=== PATIENT | female | born 1960 | race African-American/Black ===

== ENCOUNTER 2021-06-28 10:30 | Outpatient (CLI) | payer SELFPAY ==
--- NOTE | ~2021-06-28 | MM_ITS ---
EXAMINATION: MM screening [facility] BI w ade HISTORY: Screening TECHNIQUE: Craniocaudal and mediolateral oblique 3-D tomosynthesis images were obtained and synthetic 2-D images were generated. CAD analysis was submitted and interpreted. COMPARISON: Comparison to multiple prior studies sequentially, with oldest reviewed study dated 08/30 BREAST PARENCHYMAL COMPOSITION: Breast composed of scattered areas of fibroglandular density FINDINGS: There are developing bilateral breast masses involving the lower inner quadrant of the righ t breast and periareolar location of the left breast. IMPRESSION: 1. Developing bilateral breast masses. 2. Additional mammographic views and possible breast ultrasound are recommended. BI-RADS Category 0: Incomplete: Needs additional imaging evaluation. Reviewed, dictated and finalized at location A. PIT WORKER IMPRESSION: 1. Developing bilateral breast masses. 2. Additional mammographic views and possible breast ultrasound are recommended . BI-RADS Category 0: Incomplete: Needs additional imaging evaluation.
== END 2021-06-28 10:31 ==
PROVIDERS: Visit Provider Family Medicine Adolescent Medicine
DX: Z12.31 Encounter for screening mammogram for malignant neoplasm of breast (principal); R92.8 Other abnormal and inconclusive findings on diagnostic imaging of breast
CPT/HCPCS: 77063; 77067

== ENCOUNTER 2021-09-06 13:45 | Outpatient (CLI) | payer SELFPAY ==
--- NOTE | ~2021-09-06 | MMUS_ITS ---
EXAMINATION: MM diagnostic [facility] BI w ade, US breast BI limited HISTORY: Follow-up bilateral breast masses TECHNIQUE: Additional 3-D tomosynthesis images of the breasts were performed and synthetic 2-D images were generated. CAD analysis was submitted and interpreted. High resolution limited bilateral breast ultrasound was performed. COMPARISON: Comparison to multiple prior studies sequentially, with oldest reviewed study dated 02/13. BREAST PARENCHYMAL COMPOSITION: Breast composed of scattered areas of fibroglandular density FINDINGS: MAMMOGRAPHIC FINDINGS: There is a persistent radiolucent mass in the central aspect of the right breast posterior to the nip ple. There is a small mass in the upper outer quadrant of the left breast, anterior depth. ULTRASOUND: Limited right breast ultrasound: At 1:00, 5 cm from the nipple, there is a slightly irregular shaped 7 mm cyst corresponding to the mammographic finding. No suspicious masses in the right breast to sugg est malignancy. Limited left breast ultrasound: At 9:00 near the [place] there is a 4 mm cyst corresponding to the [facility] mographic finding. No suspicious masses to suggest malignancy. IMPRESSION: 1. No evidence for malignancy in either breast. Benign findings. 2. Routine yearly screening mammogram and regular clinical breast examination are recommended. BI-RADS Category 2: Benign finding(s). Reviewed, dictated and finalized at location A. IMPRESSION: 1. No evidence for malignancy in either breast. Benign findings. 2. Routine yearly screening mammogram and regular clinical breast examination a re recommended. BI-RADS Category 2: Benign finding(s).
== END 2021-09-06 13:46 ==
PROVIDERS: PCP Family Medicine Adolescent Medicine; Visit Provider Family Medicine Adolescent Medicine
DX: N63.10 Unspecified lump in the right breast, unspecified quadrant (principal); N63.20 Unspecified lump in the left breast, unspecified quadrant
CPT/HCPCS: 76642; 77062; 77066; G0279

== ENCOUNTER 2022-07-30 17:33 | Emergency (ER) | payer MEDICAID, SELFPAY ==
[2022-07-30 17:36] VITALS: BP 147/98; PULSE 100; RESP 18; TEMP 36.6; O2SAT 100
[2022-07-30 19:10] LABS: Basophils Absolute Auto 0.1 K/mm3 (0.0-0.1); Basophils Percent Auto 1.9 % (0.2-1.2); Eosinophils Absolute Auto 0.4 K/mm3 (0-0.3); Eosinophils Percent Auto 5.8 % (0-4.4); Hematocrit 32.9 % (37.0-47.0); Hemoglobin 11.4 g/dL (12.0-15.0); Immature Granulocyte Absolute 0.03 K/mm3 (0.00-0.031); Immature Granulocyte Percent A 0.4 % (0-0.5); Lymphocytes Absolute Auto 0.83 K/mm3 (0.9-3.2); Lymphocytes Percent Auto 12.1 % (18.3-44.2); Mean Corpuscular HGB Conc 34.7 g/dl (32-36); Mean Corpuscular Hemoglobin 27.1 pg (26-34); Mean Corpuscular Volume 78.1 fl (80-100); Mean Platelet Volume 9.7 fl (7.4-10.4); Monocytes Absolute Auto 0.5 K/mm3 (0.1-0.6); Monocytes Percent Auto 7.9 % (2.6-8.5); Neutrophils Absolute Auto 4.9 K/mm3 (1.3-6.7); Neutrophils Percent Auto 71.9 % (45.5-73.1); Platelet Count Result 313 k/mm3 (150-375); Red Blood Count 4.21 M/mm3 (4.2-5.4); Red Cell Distribution Width 16.4 % (11.5-14.5); White Blood Count 6.8 K/mm3 (4.5-10.0)
--- NOTE | 2022-07-30 19:15 | ED.EXTPRO ---
HPI - Extremity Problem General Chief complaint: Extremity Problem,Nontraumatic <Rey Hughes PA-C - Last Filed: 07/31/22 05:14> Stated complaint: wound <Rey Hughes PA-C - Last Filed: 07/31/22 05:14> Time Seen by Provider: 07/30/22 18:30 <Rey Hughes PA-C - Last Filed: 07/31/22 05:14> History of Present Illness HPI Narrative: This is a 61-year-old female with PMH of hypertension and MS who presents to the ED with chief complaint of left lower leg redness and swelling x2 days. She states that a blister formed yesterday and it just popped prior to arrival in the ED today. She reports minimal pain at this point. States she has been able to ambulate. She states she had what she thought was a pimple in the leg that she popped a couple days ago. Denies fevers, chills, nausea, vomiting, headache, LOC. <Rey Hughes PA-C - Last Filed: 07/31/22 05:14> Related Data Allergies/Adverse reactions: Allergies Allergy/AdvReac Type Severity Reaction Status Date / Time No Known Allergies Allergy Verified 07/30/22 19:03 <Rey Hughes PA-C - Last Filed: 07/31/22 05:14> Review of Systems Review of Systems: CONSTITUTIONAL: Denies fever, chills, or sweats. EYES: Denies visual changes, redness, or discharge. ENT: Denies rhinorrhea, congestion, sore throat, or otalgia. CARDIOVASCULAR: Denies chest pain, palpitations, or edema. RESPIRATORY: Denies cough or dyspnea. GASTROINTESTINAL: Denies abdominal pain, nausea, vomiting, or diarrhea. GENITOURINARY: Denies dysuria or hematuria. SKIN: Endorses redness. Endorses swelling. Denies rash or itching. MUSCULOSKELETAL: Denies back pain, joint pain, or myalgia. NEUROLOGIC: Denies headache, numbness, dizziness, or weakness. PSYCHIATRIC: Denies anxiety or depression. <BLUE Alvarado Last Filed: 07/31/22 05:14> [facility] Family History Family History: Family History (Updated 08/02/22 @ 16:04 by Jayson Renee [facility]) Father Cerebrovascular accident Hypertension CAD (coronary artery disease) <Rey Hughes PA-C - Last Filed: 07/31/22 05:14> Exam Narrative: GENERAL: Well-appearing, well-nourished, and in no acute distress. HEAD: Normocephalic, atraumatic. EYES: PERRLA and EOMI. ENT: Nares clear, no rhinorrhea or epistaxis. Mucous membranes moist. Oropharynx without tonsillar hypertrophy exudate or other lesions. NECK: Supple. No adenopathy or masses. CHEST: No respiratory distress. Clear to auscultation. No wheezes rales or rhonchi HEART: Regular rate and rhythm. No murmur heard. Normal peripheral pulses. ABDOMEN: Soft, nontender, nondistended, normal active bowel sounds. EXTREMITIES: There is a 9 x 9cm area of erythema to the left lower extremity. Moderate swelling. No streaking. Minimal tenderness to the left leg. Normal range of motion. Right lower extremity benign. SKIN: Warm, dry, no rash. NEURO: Alert and oriented x3. No focal deficits. PSYCH: Normal mood and affect. <Rey Hughes PA-C - Last Filed: 07/31/22 05:14> Course YARN TESTER/PA Physician Supervision This is a was performed by both a physician and an APC. I performed all aspects of the MDM as documented w/ the following additions: A 61-year-old female presenting with cellulitis of her lower extremity. Patient will be treated with antibiotics and discharged. Given return precautions.All questions answered. Patient in agreement w/ disposition. <Keyon Barron MD - Last Filed: 08/02/22 20:34> Vital Signs Vital signs: Vital Signs Temperature 97.9 F 07/30/22 17:36 Pulse Rate 100 07/30/22 17:36 Respiratory Rate 18 07/30/22 17:36 Blood Pressure 147/98 H 07/30/22 17:36 Pulse Oximetry 100 07/30/22 17:36 Oxygen Delivery Room Air 07/30/22 17:36 Temperature 97.9 F 07/30/22 17:36 Pulse Rate 75 07/30/22 21:08 Respiratory Rate 18 07/30/22 21:08 Blood Pressure 154/104 H 07/30/22 21:08 Pulse Oximetry 99 07/30/22 21:08 Oxygen Deliver
--- NOTE | 2022-07-30 19:34 | PC.NURSE ---
area of concern to left lower leg mrked with skin marker at this time. Dr. Barron and MALINDA Hughes at bedside at this time.
[2022-07-30 19:52] LABS: Alanine Aminotransferase 13 U/L (6-35); Albumin Level 4.2 g/dL (3.5-5.1); Alkaline Phosphatase 78 U/L (38-126); Anion Gap 6 mmol/L (8-16); Aspartate Amino Transferase 22 U/L (14-36); Bilirubin,Total 0.4 mg/dL (0.2-1.3); Blood Urea Nitrogen 17 mg/dL (7-17); CRP 0.6 mg/dL (<1.0); Calcium 9.3 mg/dL (8.4-10.2); Carbon Dioxide 27 mmol/L (22-30); Chloride 108 mmol/L (98-107); Estimated CRCL calculation 51 ml/min; Estimated Glomerular Filt Rate > 60; Glucose 88 mg/dL (65-110); Potassium 3.6 mmol/L (3.4-5.0); Sodium 141 mmol/L (137-145)
[2022-07-30] MEDS: ceFAZolin 1 GM/NS 50 ML 1 GM/50 ML BAG IVPB (19:54)
[2022-07-30 21:08] VITALS: BP 154/104; PULSE 75; RESP 18; O2SAT 99
== END 2022-07-30 21:09 | disposition home or self-care (01) ==
PROVIDERS: Emergency Provider Physician Assistant; PCP Family Medicine Adolescent Medicine
DX: L03.116 Cellulitis of left lower limb (principal); I10 Essential (primary) hypertension; G35 Multiple sclerosis
CPT/HCPCS: 36415; 80053; 85025; 86140; 96365; 99284; J0690

== ENCOUNTER 2024-03-04 12:35 | Emergency (ER) | payer SELFPAY ==
[2024-03-04 12:42] VITALS: BP 147/86; PULSE 76; RESP 18; TEMP 36.6; O2SAT 100
--- NOTE | 2024-03-04 13:37 | ED.WOUNDLAC ---
HPI - Wound/Laceration General Chief Complaint: Wound/Laceration Stated Complaint: laceration Time Seen by Provider: 03/04/24 13:25 Focused HPI: Patient is a 63-year-old female presents to the ER with a one inch laceration on the bottom of her chin. She reports she was sitting in a chair when she fell forward and hit her chin on a hardwood floor. Patient reports she is not on any blood thinners. She denies pain at this time. Patient endorses history of high blood pressure, cellulitis and multiple sclerosis. GENERAL: Well-appearing, well-nourished, and in no acute distress. HEAD: Normocephalic, atraumatic. CHEST: Clear to auscultation. ?No respiratory distress. HEART: Regular rate and rhythm.? NEURO: ?Alert and oriented x3. SKIN: 1 open linear laceration on pt's chin, clean borders Patient screened in triage and initial orders placed.? ?Additional care and disposition to be based upon?diagnostic testing and treatment. History of Present Illness HPI narrative: See MSE note above Related Data Allergies Allergy/AdvReac Type Severity Reaction Status Date / Time Seasonal Allergies Allergy Mild itchiness Uncoded 09/26/23 13:14 Review of Systems Review of Systems: All systems reviewed & are unremarkable except as noted in HPI and below PMFSH Past Medical History Medical History Cellulitis History of ectopic Hypertension Multiple sclerosis (1997) Paroxysmal atrial fibrillation Family History Family History Father Cerebrovascular accident Hypertension CAD (coronary artery disease) Social History Social History Smoking status: Never smoker Alcohol intake: never Substance use: never Lack of Transportation: No Lack of Food: Never True Current Housing: I Have Housing Concerned About Future Housing: No Difficulty Paying Gas/Electric Bills: No Difficulty Paying for Meds: YES Currently Unemployed: Decline to Answer Education: Bachelor's Degree Difficulty w/ Childcare or Family Care: No Exam Narrative: GENERAL: Well appearing, well-nourished, non-toxic, in no acute distress. HEAD: Normocephalic, atraumatic. NECK: Supple. No adenopathy, no masses. RESPIRATORY: Airway patent, respirations nonlabored. Clear to auscultation bilaterally, no rales, rhonchi, wheezing. CARDIOVASCULAR: Regular rate and rhythm without murmurs, rubs, or gallops. Peripheral pulses 2+ and equal bilaterally. ABDOMINAL: Soft, nontender, nondistended, no hepatosplenomegaly. Normoactive BS. MUSCULOSKELETAL: Moves all extremities. Strength/ROM intact without gross deformities. SKIN: Warm, dry, normal color. No rashes. 1 linear open wound on chin NEURO: A&O X3. Speech clear. PSYCHIATRIC: Appropriate mood and affect. Normal interaction. Course Vital Signs Vital signs: Vital Signs Temperature 36.6 C 03/04/24 12:42 Pulse Rate 76 03/04/24 12:42 Respiratory Rate 18 03/04/24 12:42 Blood Pressure 147/86 H 03/04/24 12:42 Pulse Oximetry 100 03/04/24 12:42 Oxygen Delivery Room Air 03/04/24 12:42 Temperature 36.6 C 03/04/24 12:42 Pulse Rate 76 03/04/24 12:42 Respiratory Rate 18 03/04/24 12:42 Blood Pressure 147/86 H 03/04/24 12:42 Pulse Oximetry 100 03/04/24 12:42 Oxygen Delivery Room Air 03/04/24 12:42 MDM - Wound/Laceration MDM Narrative Medical decision making narrative: Patient was given 1 tablet [place] prior to the procedure. Wound was irrigated excessively. 1% lidocaine with epinephrine was injected to the wound site. Five Ethilon 4.0 stitches were placed to close her wound. Wound will be covered by dressing. Care for wound instructions were given to pt and her sons. They verbalized understanding and were in agreement with plan. Differential Diagnosis Differential diagnosis:
[2024-03-04] MEDS: HYDROcodone/acetaminophen (*CRX) 5-325 MG TABLET 1 TAB PO (17:11)
[2024-03-04 18:09] VITALS: BP 137/82; PULSE 72; RESP 19; TEMP 36.9; O2SAT 99
== END 2024-03-04 18:11 | disposition home or self-care (01) ==
PROVIDERS: Emergency Provider Registered Nurse; PCP Family Medicine Adolescent Medicine
DX: S01.81XA Laceration without foreign body of other part of head, initial encounter (principal); I10 Essential (primary) hypertension; I48.91 Unspecified atrial fibrillation; W07.XXXA Fall from chair, initial encounter
CPT/HCPCS: 12011; 99283; A9270

== ENCOUNTER 2024-06-09 16:03 | Inpatient (IN) | payer MEDICARE, OTHER, SELFPAY ==
[2024-06-09] VITALS (27 sets, daily range): BP systolic 77–106; BP diastolic 50–82; PULSE 85–99; RESP 8–34; TEMP 36.4–37.2; O2SAT 89–100; BMI 21.9; BMI 21.2
--- NOTE | ~2024-06-09 | CT_ITS ---
EXAMINATION: CT brain wo con DATE: 06/10/2024 13:47 INDICATION: Confusion post fall TECHNIQUE: Computed tomography (CT) of the head was performed without intravenous contrast. Sagittal and coronal reconstructions were performed. The mA was adjusted according to patient size. Iterative reconstruction technique was employed. The dose-length product was 605.33 mGy-cm. COMPARISON: Brain MR dated 01/17/2012 FINDINGS: No fracture. No acute intracranial hemorrhage, acute infarction or abnormal extra axial fluid collect ion. There is extensive scattered white matter hypoattenuation consistent with chronic small vessel i schemic disease. Symmetric prominence of the sulci and ventricles consistent with mild to moderate ag e-appropriate diffuse cerebral volume loss. No mass/mass effect. The orbits, paranasal sinuses and ma stoid air cells are normal. IMPRESSION: 1. No fracture or acute intracranial process. 2. Age-related changes including mild to moderate diffuse on loss and extensive white matter hypoatte nuation consistent with chronic small vessel ischemic disease. Reviewed, dictated and finalized at location B. CATED OWNER OPERATOR IMPRESSION: 1. No fracture or acute intracranial process. 2. Age-related changes including mild to moderate diffuse on loss and extensive white matter hypoattenuation consistent with chronic small vessel ischemic dis ease.
--- NOTE | ~2024-06-09 | XR_ITS ---
MODIFIED ESOPHAGRAM HISTORY: Dysphagia. TECHNIQUE: Modified barium esophagram was performed by speech pathologist under radiologist fluorosco pic guidance. This was recorded on tape. The exam was reviewed on 06/13/2024 11:43 ASSET ACCOUNTANT. The DAP for this procedure was 1.17 Gycm2. Fluoroscopy time is 1.2 minutes. FINDINGS: Lateral projection of the cervical spine demonstrates age-appropriate advanced degenerati ve disease within the cervical spine. No penetration or aspiration. IMPRESSION: Live interrogation demonstrates a possible esophageal web at the level of C6/C7 for which nonemergent follow-up is suggested. No penetration or aspiration identified Reviewed, dictated and finalized at location A. T ACCOUNTANT
--- NOTE | ~2024-06-09 | XR_ITS ---
EXAMINATION: XR chest 1V portable DATE: 06/12/2024 14:48 INDICATION: Assess for aspiration pneumonia TECHNIQUE: frontal view of the chest was obtained. COMPARISON: Chest radiograph dated 06/09/2024 FINDINGS: Elevation the right hemidiaphragm. Mild streaky opacities at the right lung base most likely related to atelectasis although differential includes aspiration or pneumonia. No pleural effusion or pneumot horax. Heart size is normal. Thoracolumbar levorotoscoliosis. IMPRESSION: 1. Mild streaky opacities along the elevated right hemidiaphragm, most likely atelectasis although di fferential includes aspiration or pneumonia. Reviewed, dictated and finalized at location B. ID HAND IMPRESSION: 1. Mild streaky opacities along the elevated right hemidiaphragm, most likely a telectasis although differential includes aspiration or pneumonia.
--- NOTE | ~2024-06-09 | XR_ITS ---
EXAMINATION: XR chest 1V portable Exam Date/Time: 06/09/2024 18:00 [employer] HISTORY: AMS, hypotensive Comparison: None. RESULT: Lines, tubes, and devices: None. Lungs and pleura: Right hemidiaphragm elevation. Minimal streaky bibasilar scar/atelectasis. Cardiomediastinal silhouette: Stable. Other: No acute osseous or upper abdominal finding. IMPRESSION: No acute cardiopulmonary process. Reviewed, dictated and finalized at location K. INS[employer]
--- NOTE | ~2024-06-09 | US_ITS ---
EXAMINATION: US renal BI DATE: 06/10/2024 08:41 INDICATION: Acute renal insufficiency. TECHNIQUE: Multiple ultrasound grayscale images of the kidneys were obtained. COMPARISON: None. FINDINGS: The right kidney is poorly visualized due to shadowing bowel gas. The visualized portion of the right kidney demonstrates normal contour and echogenicity with no hydronephrosis. The left kidney measures 9.6 x 4.6 x 4.7 cm. The left kidney also demonstrates normal contour and echogenicity with no hydron ephrosis. No stones identified. The bladder is normal. IMPRESSION: 1. Normal kidneys without hydronephrosis. The right kidney is however poorly visualized. Reviewed, dictated and finalized at location B. ING MIXER TENDER IMPRESSION: 1. Normal kidneys without hydronephrosis. The right kidney is however poorly v isualized.
[2024-06-09] MEDS: LACTATED RINGERS 1,000 ML 999 ML IV CONT ×2 (17:03→18:54)
--- NOTE | 2024-06-09 17:05 | ECG_ITS ---
Test Date: 2024-06-09 17:08:00 Measurements Intervals [place] Rate: 95 P: 56 MO: 133 QRS: -41 QRSD: 84 T: 117 QT: 362 QTc: 457 Interpretive Statements SINUS RHYTHM POSSIBLE LEFT ATRIAL ENLARGEMENT [-0.1mV P WAVE IN V1/V2] MARKED LEFT AXIS DEVIATION [QRS AXIS < -30] ST DEVIATION AND MODERATE T-WAVE ABNORMALITY, CONSIDER ANTEROLATERAL ISCHEMIA [-0.1+ mV T WAVE IN V3-V6] No previous ECG available for comparison Electronically Signed On 06-09-2024 22:00:44 INTELLIGENCE GROUP SUPERVISOR by Jagjit Gregg M.D.
[2024-06-09 17:30] LABS: Basophils Absolute Auto 0.1 K/mm3 (0.0-0.1); Basophils Percent Auto 0.6 % (0.2-1.2); Eosinophils Percent Auto 0.3 % (0-4.4); Hematocrit 34.1 % (37.0-47.0); Hemoglobin 12.2 g/dL (12.0-15.0); Immature Granulocyte Absolute 0.12 K/mm3 (0.00-0.031); Immature Granulocyte Percent A 0.9 % (0-0.5); Lymphocytes Absolute Auto 0.85 K/mm3 (0.9-3.2); Mean Corpuscular HGB Conc 35.8 g/dl (32-36); Mean Corpuscular Hemoglobin 28.4 pg (26-34); Mean Corpuscular Volume 79.3 fl (80-100); Monocytes Absolute Auto 0.9 K/mm3 (0.1-0.6); Monocytes Percent Auto 6.7 % (2.6-8.5); Neutrophils Absolute Auto 12.1 K/mm3 (1.3-6.7); Neutrophils Percent Auto 85.5 % (45.5-73.1); Platelet Count Result 406 k/mm3 (150-375); Red Cell Distribution Width 15.7 % (11.5-14.5); White Blood Count 14.1 K/mm3 (4.5-10.0)
[2024-06-09 17:38] LABS: Lactic Acid Reflex 3.9 mmol/L (0.7-2.0)
[2024-06-09 17:40] LABS: Alanine Aminotransferase 32 U/L (6-35); Albumin Level 4.4 g/dL (3.5-5.1); Alkaline Phosphatase 71 U/L (38-126); Anion Gap 20 mmol/L (4-12); Aspartate Amino Transferase 21 U/L (14-36); Bilirubin,Total 0.9 mg/dL (0.2-1.3); Blood Urea Nitrogen 83 mg/dL (7-17); Calcium 10.4 mg/dL (8.4-10.2); Carbon Dioxide 21 mmol/L (22-30); Chloride 98 mmol/L (98-107); Estimated CRCL calculation 7 ml/min; Estimated Glomerular Filt Rate 10; Glucose 109 mg/dL (65-110); Sodium 139 mmol/L (137-145)
[2024-06-09 17:48] LABS: NT Pro B Type Natriuretic Pept 1250 pg/mL (19.9-100)
[2024-06-09 17:50] LABS: Add Urine Microscopic? YES; Appearance Urine Cloudy (Clear); Bacteria Urine None Seen /hpf; Bilirubin Urine 2+ (Negative); Blood Urine Negative (Negative); Color Urine Dark Yellow (Yellow); Glucose Urine UA Negative (Negative); Ketones Urine Trace mg/dL (Negative); Leukocyte Esterase Ur 1+ LEU/UL (Negative); Need Manual Microscopic Reviewed; Nitrate Urine Negative (Negative); Non Pathogenic Casts >20; Protein Urine Trace mg/dL (Negative); Specific Grav Ur 1.019 (1.001-1.035); Squamous Epithelial Cell Urine Moderate /hpf (Few); WBC Urine 0-5 /hpf (0-3)
--- NOTE | 2024-06-09 18:15 | ED.WEAKNESS ---
HPI - Weakness General Chief complaint: Weakness Stated complaint: unable to walk, weak, incontinence Time Seen by Provider: 06/09/24 16:37 History of Present Illness HPI Narrative: Per patient's 2 sons at bedside, she has been getting gradually more confused and weak over the last 2 weeks, initially they thought that maybe a UTI, called her doctor who sent and antibiotics but patient did not get better. She has also not been eating or drinking very much. Denies any fevers or chills, runny nose or cough, nausea vomiting. Related Data Allergies Allergy/AdvReac Type Severity Reaction Status Date / Time Seasonal Allergies Allergy Mild itchiness Uncoded 03/11/24 13:18 [facility] Past Medical History Medical History Cellulitis History of ectopic Hypertension Multiple sclerosis (1997) Paroxysmal atrial fibrillation Family History Family History Father Cerebrovascular accident Hypertension CAD (coronary artery disease) Social History Social History Smoking status: Never smoker Alcohol intake: never Substance use: never Lack of Transportation: No Lack of Food: Never True Current Housing: I Have Housing Concerned About Future Housing: No Difficulty Paying Gas/Electric Bills: No Difficulty Paying for Meds: YES Currently Unemployed: Decline to Answer Education: Bachelor's Degree Difficulty w/ Childcare or Family Care: No Exam Narrative: EXAMINATION OF ORGAN SYSTEMS/BODY AREAS: Constitutional: Vital signs per nursing GENERAL:[No acute distress, non-toxic appearing.] HEAD: Normal with no signs of head trauma. EYES: EOMI, conjunctiva normal ENT: Hearing grossly intact LUNGS: Nonlabored breathing. HEART: [Regular rate and rhythm] ABD: [Soft], [nontender to palpation] EXT: Normal range of motion SKIN: [No rashes or lesions.] NEURO: [Alert. No gross focal sensory or strength deficits.] Moving all extremities. PSYCH: Pleasant but confused Course Vital Signs Vital signs: Vital Signs Temperature 97.5 F L 06/09/24 16:21 Pulse Rate 98 06/09/24 16:21 Respiratory Rate 16 06/09/24 16:21 Blood Pressure 77/50 L 06/09/24 16:21 Pulse Oximetry 100 06/09/24 16:21 Oxygen Delivery Room Air 06/09/24 16:21 Temperature 97.5 F L 06/09/24 16:21 Pulse Rate 91 06/09/24 19:32 Respiratory Rate 20 06/09/24 19:32 Blood Pressure 106/67 06/09/24 19:31 Pulse Oximetry 100 06/09/24 19:02 Oxygen Delivery Room Air 06/09/24 16:21 MDM - Weakness MDM Narrative Medical decision making narrative: Patient presenting here with 1-2 weeks of increasing generalized weakness, decreased p.o. intake, and now confusion. Vitals concerning for low blood pressure, which did improve immediately with IV fluids, I suspect most likely dehydration especially given her extremely elevated BUN and creatinine. She has been here in the ER for the last 3 hours and her maps have been consistently above 60s, currently last blood pressure is 106/67 and her mental status also improved. I discussed plan for admission the patient and son at bedside who were agreeable to this. Discussed with the zigzagger hospitalist for admission. Lab Data 06/09/24 17:06 06/09/24 17:06 Labs: Lab Results 06/09/24 06/09/24 Range/Units 17:06 17:24 WBC 14.1 H (4.5-10.0) K/mm3 RBC 4.30 (4.2-5.4) M/mm3 Hgb 12.2 (12.0-15.0) g/dL Hct 34.1 L (37.0-47.0) % MCV 79.3 L (80-100) fl MCH 28.4 (26-34) pg MCHC 35.8 (32-36) g/dl RDW 15.7 H (11.5-14.5) % Plt Count 406 H (150-375) k/mm3 MPV 11.0 H (7.4-10.4) fl Immature Gran % (Auto) 0.9 H (0-0.5) % Neut % (Auto) 85.5 H (45.5-73.1) % Lymph % (Auto) 6.0 L (18.3-44.2) % [place] % (Auto) 6.7 (2.6-8.5) % Eos % (Auto) 0.3 (0-4.4) % Baso % (Auto) 0.6 (0.2-1.2) % Lymph # (Auto) 0.85 L (0.9-3.2) K/mm3 [place] # (Auto) 0.9 H (0.1-0.6) K/mm3 Eos # (Auto) 0.0 (0-0.3) K/mm3 Baso # (Auto) 0.1 (0.0-0.1) K/mm3 Abs Immat Gran (auto) 0.12 H (0.00-0.031) K/mm3 Absolute Neuts (auto) 12.1 H (1.3-6.7) K/mm3 Absolute Nucleated RBC 0.000 (0.0-0.012) K/mm3 Nucleated RBC % 0.0 (0.0-0.2) % Sodium 139 (137-145) mmol/L Potassium 3.0 L (3.4-5.0) mmol/L Chloride 98 (98-107) mmol/L Carbon Dioxide 21 L (22-30) mmol/L Anion Gap 20 H (4-12) mmol/L BUN 83 H D (7-17) mg/dL Creatinine 5.37 H (0.7-1.0) mg/dL Estim Creat Clear Calc 7 ml/min Estimated GFR 10 L (59 - ) Glucose 109 (65-110) mg/dL Lactic Acid 3.9 H (0.7-2.0) mmol/L Calcium 10.4 H (8.4-10.2) mg/dL Total Bilirubin 0.9 (0.2-1.3) mg/dL AST 21 (14-36) U/L ALT 32 (6-35) U/L Alkaline Phosphatase 71 (38-126) U/L NT-Pro-B Natriuret Pep 1250 H (19.9-100) pg/mL Total Protein 9.0 H (6.3-8.2) g/dL Albumin 4.4 (3.5-5.1) g/dL Urine Color Dark yellow (Yellow) Urine Appearance Cloudy H (Clear) Urine pH 5.0 (5.0-9.0) Ur Specific [place] 1.019 (1.001-1.035) Urine Protein Trace (Negative) mg/dL Urine Glucose (UA) Negative (Negative) mg/dL Urine Ketones Trace H (Negative) mg/dL Ur Blood (Man) Negative (Negative) Urine Nitrate Negative (Negative) Urine Bilirubin 2+ H (Negative) Urine Urobilinogen 1.0 (<2.0) mg/dL Add Ur Microanalysis Reviewed Leukocyte Esterase Rfl 1+ H (Negative) CHAI/UL Urine RBC 11-20 H (0-2) /hpf Urine WBC 0-5 (0-3) /hpf Ur Squamous Epith Cells Moderate (Few) /hpf Urine Bacteria None seen /hpf Urine Casts >20 Critical Care Time Critical Care Time Critical Care Time: Yes Total Critical Care Time: 31 Discharge Plan Discharge Clinical Impression: Hypotension, Dehydration, ESTEFANÍA (acute kidney injury) Patient Disposition: Still a Patient Condition: Improved
[2024-06-09] MEDS: POTASSIUM CHLORIDE 20 MEQ ER TABLET 40 MEQ PO (18:55)
[2024-06-09 20:28] LABS: Reflex Lactic Acid Yes or No Add Lactic
--- NOTE | 2024-06-09 21:16 | ADMGEN ---
This patient, Jolene Gonzalez, was admitted to 3 [facility] Surg Room 307-02. Patient/family oriented to hospital policies and general routines including ID bracelet, bed and alarms, visiting hours, pain management, procedures, bathroom and other care routines, personal items, smoking policy, room service/diet, and visiting hours. Information on how to activate the Rapid Response Team has been discussed. Patient/Family are encouraged to report perceived risks to care and to ask questions if they do not understand what they are told or what they should do.
[2024-06-09 21:29] LABS: Lactic Acid 2.5 mmol/L (0.7-2.0)
[2024-06-09] MEDS: SODIUM CHLORIDE 0.9% IV 1,000 ML 999 ML IV CONT ×2 (21:33→23:22)
[2024-06-09 22:22] LABS: Urea Random Urine 470 MG/DL
--- NOTE | 2024-06-09 22:41 | P.HP_ITS ---
H&P: HPI History of Present Illness Date/Time: 06/09/24 22:41 Chief Complaint: UTI weakness Narrative: 63-year-old female with history of MS, hypertension and atrial fibrillation presents the hospital with increased weakness and foul-smelling urine. Patient has left with her son for the last 3 years he states that at baseline she can walk. He states last week he felt that she was having a urinary tract infection so he called her doctor and get order for p.o. antibiotics he states that she comes finished them but due to not getting better he brought her into the hospital. He states that today he had pick her up and carry her case she was too weak to walk. She denies any respiratory symptoms, or burning when she pees. Review of Systems Review of Systems: 12 systems were reviewed and are negativ e except for as per HPI. [facility] Past Medical History Medical History History of ectopic Paroxysmal atrial fibrillation Multiple sclerosis (1997) Hypertension Cellulitis Family History Family History Father Cerebrovascular accident Hypertension CAD (coronary artery disease) Social History Social History Smoking status: Never smoker Second hand tobacco smoke exposure: No Alcohol intake: never Substance use: never Substance use type: does not use Do You Feel Safe in your Home?: Yes Lack of Transportation: No Lack of Food: Never True Current Housing: I Have Housing Concerned About Future Housing: No Difficulty Paying Gas/Electric Bills: No Difficulty Paying for Meds: No Currently Unemployed: No Education: Associate Degree Difficulty w/ Childcare or Family Care: No Spiritual care concerns: No Meds Home Medications and Allergies Home Medications ?Medication ?Instructions ?Recorded ?Confirmed ?Type lisinopril 5 mg tablet 5 mg PO DAILY #90 tabs 10/27/23 06/09/24 Rx dimethyl fumarate 240 mg 240 mg PO BID #180 caps 05/13/24 06/09/24 Rx capsule,delayed release (Tecfidera) indapamide 2.5 mg tablet 2.5 mg PO DAILY #90 tabs 05/13/24 06/09/24 Rx Allergies Allergy/AdvReac Type Severity Reaction Status Date / Time Seasonal Allergies Allergy Mild itchiness Uncoded 03/11/24 13:18 Vital Signs Vital Signs - 24 hr 06/09/24 16:21 06/09/24 16:36 06/09/24 16:37 Temperature 97.5 F L Pulse Rate 98 95 95 Respiratory Rate 16 26 H 16 Blood Pressure 77/50 L 82/61 L Pulse Oximetry 100 Oxygen Delivery Room Air 06/09/24 16:45 06/09/24 16:47 06/09/24 17:00 Temperature Pulse Rate 93 93 93 Respiratory Rate 25 H 23 H 21 H Blood Pressure 85/65 L Pulse Oximetry 89 L Oxygen Delivery 06/09/24 17:12 06/09/24 17:15 06/09/24 17:16 Temperature Pulse Rate 97 96 99 Respiratory Rate 26 H 23 H 20 Blood Pressure 94/72 L 100/82 Pulse Oximetry 100 Oxygen Delivery 06/09/24 17:42 06/09/24 17:45 06/09/24 17:55 Temperature Pulse Rate 91 87 87 Respiratory Rate 20 18 15 Blood Pressure 96/71 L Pulse Oximetry 100 Oxygen Delivery 06/09/24 18:00 06/09/24 18:01 06/09/24 18:15 Temperature Pulse Rate 92 94 87 Respiratory Rate 34 H 24 H 15 Blood Pressure 95/78 L Pulse Oximetry 100 100 Oxygen Delivery 06/09/24 18:16 06/09/24 18:30 06/09/24 18:31 Temperature Pulse Rate 87 87 86 Respiratory Rate 13 18 15 Blood Pressure 88/59 L 94/60 L Pulse Oximetry Oxygen Delivery 06/09/24 18:45 06/09/24 18:46 06/09/24 19:01 Temperature Pulse Rate 85 86 88 Respiratory Rate 8 L 17 18 Blood Pressure 85/59 L 96/66 L Pulse Oximetry 100 99 100 Oxygen Delivery 06/09/24 19:02 06/09/24 19:16 06/09/24 19:30 Temperature Pulse Rate 87 85 Respiratory Rate 20 17 Blood Pressure 106/67 Pulse Oximetry 100 Oxygen Delivery 06/09/24 19:31 06/09/24 19:32 06/09/24 22:00 Temperature 98.9 F Pulse Rate 90 91 98 Respiratory Rate 24 H 20 16 Blood Pressure 106/67 83/54 L Pulse Oximetry 97 Oxygen Delivery Exam Narrative: General: Frail HEENT: normocephalic, atraumatic. Mucous membranes dry. EOMI, PERRLA, bilateral sclera anicteric, no conjunctival injection. Neck supple without JVD, lymphadenopathy, or bruit. Respiratory: clear to ascultation bilaterally. Cardiovascular: Regular rate and rhythm, normal S1-S2 upon ascultation. No murmurs, rubs, or clicks. PMI is nondisplaced, capillary refill less than 3 second. Abdomen: Soft, round, no pulsatile masses, nondistended and nontender. No rebound, no guarding. No CVA tenderness, no hepatosplenomegaly. Bowel sounds present to all four quadrants. No high pitch or tinkling sounds, resonant to percussion. Extremities: No cyanosis, clubbing, or edema present. Pulses are palpable 2/2. Active ROM to all four extremities. Neuro: Alert and orientated x 4. PERRLA. Cranial nerves 2-12 intact without focal deficit. Skin: Warm, dry, and intact, without rash, erythema, or lesion. Psych: pleasant, cooperative, normal speech, normal affect, no hallucinations, no dysarthia H&P: Results Labs Labs: Short CBC 06/09/24 Range/Units 17:06 WBC 14.1 H (4.5-10.0) K/mm3 Hgb 12.2 (12.0-15.0) g/dL Hct 34.1 L (37.0-47.0) % Plt Count 406 H (150-375) k/mm3 BMP 06/09/24 17:06 Sodium 139 Potassium 3.0 L Chloride 98 Carbon Dioxide 21 L BUN 83 H D Creatinine 5.37 H Glucose 109 Calcium 10.4 H Liver Function 06/09/24 Range/Units 17:06 Total Bilirubin 0.9 (0.2-1.3) mg/dL AST 21 (14-36) U/L ALT 32 (6-35) U/L Alkaline Phosphatase 71 (38-126) U/L Albumin 4.4 (3.5-5.1) g/dL Urine 06/09/24 Range/Units 17:24 Urine Color Dark yellow (Yellow) Urine Appearance Cloudy H (Clear) Urine pH 5.0 (5.0-9.0) Ur Specific [place] 1.019 (1.001-1.035) Urine Protein Trace (Negative) mg/dL Urine Glucose (UA) Negative (Negative) mg/dL Assessment and Plan Assessment and plan (1) Hypotension: Code(s): I95.9 - Hypotension, unspecified Status: Acute Assessment and Plan: 3 L IVF given in ED Patient still has dry mucous membranes will order another bolus followed by IVF at 1:25 a.m. (2) UTI (urinary tract infection): Code(s): N39.0 - Urinary tract infection, site not specified Status: Acute Assessment and Plan: Rocephin IVF (3) Dehydration: Code(s): E86.0 - Dehydration Status: Acute Assessment and Plan: Fluid bolus and IV hydration Replace electrolytes as needed Daily labs (4) ESTEFANÍA (acute kidney injury): Code(s): N17.9 - Acute kidney failure, unspecified Status: Acute Assessment and Plan: Nephrology consulted Daily labs IV hydration Avoid NSAIDs and nephrotoxic medications (5) Hypertension: Code(s): I10 - Essential (primary) hypertension Status: Acute Assessment and Plan: Hold home antihypertensive meds due to hypotension (6) Multiple sclerosis: Onset Date: 1997 Code(s): G35 - Multiple sclerosis Status: Acute Assessment and Plan: PT OT Continue home meds Quality VTE Prophylaxis VTE prophylaxis: mechanical ordered and pharmacologic ordered Hospitalist MIPS Advance Care Plan I have confirmed that the patient's Advanced Care Plan is present, code status is documented, or surrogate decision maker is listed in patient medical record.: Yes Medication Reconciliation I have utilized all available resources to obtain, update and review the patients current medications (includes all prescriptions, OTC, herbals, cannabis, and nutritional supplements).: Yes
[2024-06-09] MEDS: SODIUM CHLORIDE 0.9% IV 1,000 ML 125 ML IV CONT (23:22)
[2024-06-10] VITALS (7 sets, daily range): BP systolic 90–105; BP diastolic 46–70; PULSE 64–96; RESP 16–18; TEMP 36.6–36.9; O2SAT 95–100; BMI 21.2
[2024-06-10 00:17] LABS: Total Protein Urine Random 24 mg/dL
[2024-06-10 00:40] LABS: Sodium Urine Random 59 meq/L
[2024-06-10 00:44] LABS: Creatinine Urine 173.9 mg/dL; Total Protein Urine Random 24 mg/dL; Ur Ttl Prot Creatinine Ratio 0.14 mg/mg (0-0.20)
[2024-06-10 01:47] LABS: Eosinophil Urine None Seen % (None Seen); Urine Eos QC 2nd Tech Confirmed
[2024-06-10] MEDS: SODIUM CHLORIDE 0.9% IV 1,000 ML 125 ML IV CONT (06:56)
[2024-06-10 07:47] LABS: Basophils Absolute Auto 0.1 K/mm3 (0.0-0.1); Basophils Percent Auto 0.7 % (0.2-1.2); Eosinophils Absolute Auto 0.2 K/mm3 (0-0.3); Hematocrit 25.5 % (37.0-47.0); Hemoglobin 8.9 g/dL (12.0-15.0); Immature Granulocyte Absolute 0.07 K/mm3 (0.00-0.031); Immature Granulocyte Percent A 0.8 % (0-0.5); Lymphocytes Absolute Auto 0.72 K/mm3 (0.9-3.2); Lymphocytes Percent Auto 8.4 % (18.3-44.2); Mean Corpuscular HGB Conc 34.9 g/dl (32-36); Mean Corpuscular Hemoglobin 28.2 pg (26-34); Mean Corpuscular Volume 80.7 fl (80-100); Mean Platelet Volume 10.9 fl (7.4-10.4); Monocytes Absolute Auto 0.8 K/mm3 (0.1-0.6); Monocytes Percent Auto 9.8 % (2.6-8.5); Neutrophils Absolute Auto 6.7 K/mm3 (1.3-6.7); Neutrophils Percent Auto 78.3 % (45.5-73.1); Platelet Count Result 269 k/mm3 (150-375); Red Blood Count 3.16 M/mm3 (4.2-5.4); Red Cell Distribution Width 15.5 % (11.5-14.5); White Blood Count 8.5 K/mm3 (4.5-10.0)
[2024-06-10 07:55] LABS: Creatine Kinase 52 U/L (30-135)
[2024-06-10 08:36] LABS: Anion Gap 12 mmol/L (4-12); Blood Urea Nitrogen 63 mg/dL (7-17); Calcium 8.4 mg/dL (8.4-10.2); Carbon Dioxide 19 mmol/L (22-30); Chloride 109 mmol/L (98-107); Estimated CRCL calculation 16 ml/min; Estimated Glomerular Filt Rate 22; Glucose 82 mg/dL (65-110); Potassium 3.1 mmol/L (3.4-5.0); Sodium 140 mmol/L (137-145)
--- NOTE | 2024-06-10 08:45 | P.PNIM_ITS ---
Progress Note: A&P Assessment and Plan (1) Fall: Code(s): W19.XXXA - Unspecified fall, initial encounter Status: Acute Assessment and Plan: History of MS. Patient has had 6 falls in 6 months per sons. Most recent fall was on Monday when patient reportedly slid out of her chair. Patient is unable to remember if she hit her head or loss of consciousness with this fall. She states she thinks her legs gave out on her and does not report dizziness/lightheadedness prior to these falls. Per sons patient has not been complaining of dizziness/lightheadedness or palpitations. Not on anticoagulation. - Head CT: 1. No fracture or acute intracranial process. 2. Age-related changes including mild to moderate diffuse on loss and extensive white matter hypoattenuation consistent with chronic small vessel isc hemic disease. - PT/OT (2) Hypotension: Code(s): I95.9 - Hypotension, unspecified Status: Acute Assessment and Plan: Patient consistently hypotensive but maps have been above 60s. 3 L IVF given in ED, 1 L IVF given on admission. Blood pressures have improved with fluids. Likely related to dehydration. Continue NS 100 ml/hr Holding lisinopril 5 mg daily and indapamide 2.5 mg daily Blood pressures remain stable, continue to monitor (3) UTI (urinary tract infection): Code(s): N39.0 - Urinary tract infection, site not specified Status: Acute Assessment and Plan: Per chart review patient was having UTI symptoms 2 weeks ago for which her PCP sent her oral antibiotics. She completed the course but symptoms did not improve. Denies UTI symptoms, but was having confusion and weakness. - UA: cloudy appearance with trace ketones, 2+ bili, 1+ leukocytes, 11-20 RBC, 0-5 WBC, moderate squamous cells, no bacteria. Possible contaminant. - UC ordered - no previous micro to be reviewed - started on Rocephin on 06/09 (4) Dehydration: Code(s): E86.0 - Dehydration Status: Acute Assessment and Plan: Fluid bolus and IV hydration Replace electrolytes as needed Daily labs (5) ESTEFANÍA (acute kidney injury): Code(s): N17.9 - Acute kidney failure, unspecified Status: Acute Assessment and Plan: BUN/Cr 83/5.37 with GFR 10 on admission, previously BUN/Cr 17/0.90 with GFR >60 in 2022 BUN/Cr 63/2.67 with GFR 22 Holding lisinopril 5 mg daily and indapamide 2.5 mg daily NS 100 ml/hr Avoid nephrotoxic medications Renally dose medications Monitor intake and output Renal US: Normal kidneys without hydronephrosis. The right kidney is however poorly visualized. Nephrology consulted (6) Hypertension: Code(s): I10 - Essential (primary) hypertension Status: Acute Assessment and Plan: Holding lisinopril 5 mg daily and indapamide 2.5 mg daily due to hypotension Resume as appropriate (7) Multiple sclerosis: Onset Date: 1997 Code(s): G35 - Multiple sclerosis Status: Acute Assessment and Plan: PT OT Continue home meds Time Spent With Patient Time with patient: 25 - 35 minutes Subjective Date/time seen: 06/10/24 08:45 Interval history: 63-year-old female with history of MS, hypertension and atrial fibrillation presents the hospital with increased weakness and foul-smelling urine. Patient is pleasant lying in bed. She is AOx3 on assessment with family at bedside. Per patients sons she has had 6 falls in 6 months per sons. Most recent fall was on Monday when patient reportedly slid out of her chair. Patient is unable to remember if she hit her head or loss of consciousness with this fall. She states she thinks her legs gave out on her and does not report dizziness/lightheadedness prior to these falls. Per sons patient has not been complaining of dizziness/lightheadedness or palpitations. Not on anticoagulation. Patient has no complaints denying any pain, chest pain, shortness of breath, palpitations, nausea/vomiting and abdominal pain. Review of Systems Review of Systems: All systems reviewed & are unremarkable except as noted in HPI and below Exam Narrative: AF HR 82 RR 18 Spo2 100 BP 100/68 General: female in no acute respiratory distress who is nontoxic appearing, sitting up in bed. HEENT: Normocephalic. Atraumatic. Extraocular movement intact. Sclera clear and anicteric. No facial asymmetry. Chest: Lungs are clear to auscultation bilaterally. No wheezes or crackles. CV: Heart was regular rate and rhythm. S1-S2. No murmurs, gallops, or rubs. Abd: Abdomen was soft. Nontender. Nondistended. Positive bowel sounds. Ext: No clubbing, cyanosis, or edema. 2+ DP pulses bilaterally. Neuro: Patient is alert and oriented x3. Strength is weak but symmetrical in b oth upper and lower extremities with push/pulls. No extremity drift. Speech is slow, per son she has been having slower speech but no slurring. Objective Data Vital Signs Vital Signs: Vital Signs - 24 hr 06/09/24 16:21 06/09/24 16:36 06/09/24 16:37 Temperature 97.5 F L Pulse Rate 98 95 95 Respiratory Rate 16 26 H 16 Blood Pressure 77/50 L 82/61 L Pulse Oximetry 100 Oxygen Delivery Room Air 06/09/24 16:45 06/09/24 16:47 06/09/24 17:00 Temperature Pulse Rate 93 93 93 Respiratory Rate 25 H 23 H 21 H Blood Pressure 85/65 L Pulse Oximetry 89 L Oxygen Delivery 06/09/24 17:12 06/09/24 17:15 06/09/24 17:16 Temperature Pulse Rate 97 96 99 Respiratory Rate 26 H 23 H 20 Blood Pressure 94/72 L 100/82 Pulse Oximetry 100 Oxygen Delivery 06/09/24 17:42 06/09/24 17:45 06/09/24 17:55 Temperature Pulse Rate 91 87 87 Respiratory Rate 20 18 15 Blood Pressure 96/71 L Pulse Oximetry 100 Oxygen Delivery 06/09/24 18:00 06/09/24 18:01 06/09/24 18:15 Temperature Pulse Rate 92 94 87 Respiratory Rate 34 H 24 H 15 Blood Pressure 95/78 L Pulse Oximetry 100 100 Oxygen Delivery 06/09/24 18:16 06/09/24 18:30 06/09/24 18:31 Temperature Pulse Rate 87 87 86 Respiratory Rate 13 18 15 Blood Pressure 88/59 L 94/60 L Pulse Oximetry Oxygen Delivery 06/09/24 18:45 06/09/24 18:46 06/09/24 19:01 Temperature Pulse Rate 85 86 88 Respiratory Rate 8 L 17 18 Blood Pressure 85/59 L 96/66 L Pulse Oximetry 100 99 100 Oxygen Delivery 06/09/24 19:02 06/09/24 19:16 06/09/24 19:30 Temperature Pulse Rate 87 85 Respiratory Rate 20 17 Blood Pressure 106/67 Pulse Oximetry 100 Oxygen Delivery 06/09/24 19:31 06/09/24 19:32 06/09/24 22:00 Temperature 98.9 F Pulse Rate 90 91 98 Respiratory Rate 24 H 20 16 Blood Pressure 106/67 83/54 L Pulse Oximetry 97 Oxygen Delivery 06/10/24 00:00 06/10/24 04:00 06/10/24 08:00 Temperature 98.3 F 98.3 F 98.2 F Pulse Rate 91 89 89 Respiratory Rate 18 16 16 Blood Pressure 99/46 L 90/58 L 99/61 L Pulse Oximetry 98 100 100 Oxygen Delivery Intake/Output Intake/Output: Intake & Output 06/07/24 06/08/24 06/09/24 06/10/24 23:59 23:59 23:59 23:59 Intake Total 2905.8 Balance 2905.8 Meds/Results Medications: Active Medications Generic Name Dose Route Start Last Admin Trade Name Freq PRN Reason Stop Dose Admin Acetaminophen 650 mg 06/09/24 22:45 Acetaminophen 325 Mg Tablet PO Q4H PRN Mild Pain (1-3) or Fever Docusate Sodium 100 mg 06/10/24 09:00 Docusate Sodium 100 Mg Capsule PO Q12HR APRYL Enoxaparin Sodium 40 mg 06/10/24 09:00 Enoxaparin 40 Mg/0.4 Ml Syringe SUB-Q DAILY ON LICENSE OF [facility] Sodium Chloride 1,000 mls @ 125 mls/hr 06/09/24 18:50 06/10/24 06:56 Normal Saline Iv IV CONT 125 mls/hr .Q8H APRYL Administration Ceftriaxone Sodium 1 gm in 50 mls @ 100 mls/hr 06/09/24 23:00 06/09/24 23:23 Rocephin 1 Gm/Ns 50 Ml IVPB 100 mls/hr HS APRYL Administration Miscellaneous Information 1 each 06/10/24 00:01 (Dimethyl Fumarate [Tecfidera] 240 Mg Capsule Is Nonform; Can Pt Use From Home? XX 07/10/24 00:00 CLARIFY APRYL Non-Formulary Medication 240 mg 06/10/24 09:00 Dimethyl Fumarate [Tecfidera] PO 07/10/24 08:59 BID APRYL Radiology Results: ITS Impressions Chest X-Ray 06/09/24 18:27 IMPRESSION: No acute cardiopulmonary process. Labs Labs: Laboratory Results - last 24 hr 06/09/24 06/09/24 06/09/24 17:06 17:24 21:11 WBC 14.1 H RBC 4.30 Hgb 12.2 Hct 34.1 L MCV 79.3 L MCH 28.4 MCHC 35.8 RDW 15.7 H Plt Count 406 H MPV 11.0 H Immature Gran % (Auto) 0.9 H Neut % (Auto) 85.5 H Lymph % (Auto) 6.0 L Grant % (Auto) 6.7 Eos % (Auto) 0.3 Baso % (Auto) 0.6 Lymph # (Auto) 0.85 L Grant # (Auto) 0.9 H Eos # (Auto) 0.0 Baso # (Auto) 0.1 Abs Immat Gran (auto) 0.12 H Absolute Neuts (auto) 12.1 H Absolute Nucleated RBC 0.000 Nucleated RBC % 0.0 Sodium 139 Potassium 3.0 L Chloride 98 Carbon Dioxide 21 L Anion Gap 20 H BUN 83 H D Creatinine 5.37 H Estim Creat Clear Calc 7 Estimated GFR 10 L Glucose 109 Lactic Acid 3.9 H 2.5 H Calcium 10.4 H Total Bilirubin 0.9 AST 21 ALT 32 Alkaline Phosphatase 71 Total Creatine Kinase NT-Pro-B Natriuret Pep 1250 H Total Protein 9.0 H Albumin 4.4 Urine Color Dark yellow Urine Appearance Cloudy H Urine pH 5.0 Ur Specific [place] 1.019 Urine Protein Trace Urine Glucose (UA) Negative Urine Ketones Trace H Ur Blood (Man) Negative Urine Nitrate Negative Urine Bilirubin 2+ H Urine Urobilinogen 1.0 Add Ur Microanalysis Reviewed Leukocyte Esterase Rfl 1+ H Urine RBC 11-20 H Urine WBC 0-5 Ur Squamous Epith Cells Moderate Urine Bacteria None seen Urine Casts >20 Urine Eosinophils U Random Total Protein Ur Random Sodium Ur Random Urea 470 Urine Creatinine Protein/Creat Ratio 2 06/09/24 06/09/24 06/09/24 23:56 23:56 23:56 WBC RBC Hgb Hct MCV MCH MCHC RDW Plt Count MPV Immature Gran % (Auto) Neut % (Auto) Lymph % (Auto) Grant % (Auto) Eos % (Auto) Baso % (Auto) Lymph # (Auto) Grant # (Auto) Eos # (Auto) Baso # (Auto) Abs Immat Gran (auto) Absolute Neuts (auto) Absolute Nucleated RBC Nucleated RBC % Sodium Potassium Chloride Carbon Dioxide Anion Gap BUN Creatinine Estim Creat Clear Calc Estimated GFR Glucose Lactic Acid Calcium Total Bilirubin AST ALT Alkaline Phosphatase Total Creatine Kinase NT-Pro-B Natriuret Pep Total Protein Albumin Urine Color Urine Appearance Urine pH Ur Specific [place] Urine Protein Urine Glucose (UA) Urine Ketones Ur Blood (Man) Urine Nitrate Urine Bilirubin Urine Urobilinogen Add Ur Microanalysis Leukocyte Esterase Rfl Urine RBC Urine WBC Ur Squamous Epith Cells Urine Bacteria Urine Casts Urine Eosinophils None seen U Random Total Protein 24 24 Ur Random Sodium 59 Ur Random Urea Urine Creatinine 173.9 181.0 Protein/Creat Ratio 2 0.14 06/10/24 07:08 WBC 8.5 RBC 3.16 L Hgb 8.9 L D Hct 25.5 L MCV 80.7 MCH 28.2 MCHC 34.9 RDW 15.5 H Plt Count 269 MPV 10.9 H Immature Gran % (Auto) 0.8 H Neut % (Auto) 78.3 H Lymph % (Auto) 8.4 L Grant % (Auto) 9.8 H Eos % (Auto) 2.0 Baso % (Auto) 0.7 Lymph # (Auto) 0.72 L Grant # (Auto) 0.8 H Eos # (Auto) 0.2 Baso # (Auto) 0.1 Abs Immat Gran (auto) 0.07 H Absolute Neuts (auto) 6.7 Absolute Nucleated RBC 0.000 Nucleated RBC % 0.0 Sodium 140 Potassium 3.1 L Chloride 109 H Carbon Dioxide 19 L Anion Gap 12 BUN 63 H D Creatinine 2.67 H Estim Creat Clear Calc 16 Estimated GFR 22 L Glucose 82 Lactic Acid Calcium 8.4 Total Bilirubin AST ALT Alkaline Phosphatase Total Creatine Kinase 52 NT-Pro-B Natriuret Pep Total Protein Albumin Urine Color Urine Appearance Urine pH Ur Specific [place] Urine Protein Urine Glucose (UA) Urine Ketones Ur Blood (Man) Urine Nitrate Urine Bilirubin Urine Urobilinogen Add Ur Microanalysis Leukocyte Esterase Rfl Urine RBC Urine WBC Ur Squamous Epith Cells Urine Bacteria Urine Casts Urine Eosinophils U Random Total Protein Ur Random Sodium Ur Random Urea Urine Creatinine Protein/Creat Ratio 2 Quality VTE Prophylaxis VTE prophylaxis: mechanical ordered and pharmacologic ordered
[2024-06-10 08:59] LABS: Hepatitis B Surface Antigen Negative (Negative)
[2024-06-10] MEDS: ENOXAPARIN 40 MG/0.4 ML SYRINGE SUB-Q (09:06)
[2024-06-10] MEDS: DOCUSATE SODIUM 100 MG CAPSULE PO ×2 (09:06→22:30)
[2024-06-10 09:16] LABS: Hepatitis B Surface Anti Res Negative
--- NOTE | 2024-06-10 10:30 | P.CONNP_ITS ---
Assessment and Plan Assessment and plan (1) ESTEFANÍA (acute kidney injury): Code(s): N17.9 - Acute kidney failure, unspecified Status: Acute Assessment and Plan: * improvement noted since admission with IVFs * history would suggest prerenal factor/volume depletion worsened by hypotension as etiology * evaluation to date noted: * urine electrolytes prerenal * urine eosinophils negative * possible UTI by UA - follow culture * CPK normal * renal ultrasound normal * hold lisinopril and indapamide * continue IVFs for now - wean as oral intake improves * follow trend of repeat labs and UOP (2) Hypotension: Code(s): I95.9 - Hypotension, unspecified Status: Acute Assessment and Plan: * as noted in ER * BP medications on hold * continue IVF hydration (3) UTI (urinary tract infection): Code(s): N39.0 - Urinary tract infection, site not specified Status: Acute Assessment and Plan: * suspected based on UA * follow-up on culture * on empiric antibiotics (4) Hypertension: Code(s): I10 - Essential (primary) hypertension Status: Acute Assessment and Plan: * not an issue at this time * BP medications on hold due to #2 * follow trend of hemodynamics (5) Multiple sclerosis: Onset Date: 1997 Code(s): G35 - Multiple sclerosis Status: Acute Assessment and Plan: * continue home medications I will continue to follow the patient with you while she remains hospitalized and make further recommendations as deemed necessary. Thank you for allowing me to participate in the care of this patient. L History of Present Illness Reason for Consult Consult date: 06/10/24 Reason for consult: acute renal failure Chief Complaint Chief complaint: ESTEFANÍA, hypotension, dehydration History of Present Illness Narrative: The patient is a 63-year-old female a past medical history as outlined who presented to [facility] Emergency Room due to confusion and generalized weakness. According to the patient's sons the patient has been gradually getting more confused and weaker over the past 2 weeks. Initially, they thought she may have a urinary tract infection as this has happened the past when she had 1. They called her doctor who sent in antibiotic but despite this therapy/ intervention, she does not appear to be improving. Furthermore, they also report that she has not been eating and drinking very much either. They report no fevers, chills, nausea, vomiting dizziness, lightheadedness, or palpitations. Given these constellation of symptoms and the lack of improvement, they brought her into the emergency room for further assessment. Workup and evaluation emergency was significant for hypotension with a systolic BP in the 70s but otherwise afebrile. She improved immediately with IV fluids up into the 100 systolic range. Routine blood test demonstrated labs consistent with acute kidney injury/acute renal failure but without any acute critical electrolyte abnormalities. Her mentation apparently improved once her blood pressure did as well. Given the concern for volume depletion / dehydration as a cause for her altered mentation and hypertension, she was continued on IV fluids and subsequently admitted to the hospital for further evaluation and therapy. Since her admission, her blood pressure continues to improve as does her mentation and by the time of my visit, she was mentating significantly better according to her son who was at bedside and was noted that she was making attempts to eat and drink fluids on her own. Renal consultation was requested due to her acute kidney injury/ acute renal failure as evidence by her admission labs. Review of her records, her kidney function/ creatinine runs the normal range and does not appear to have any issues or problems with renal insufficiency at baseline. Furthermore, with IV fluid resuscitation that was instituted the emergency room, her renal function and blood pressure appear to be doing significantly better arguing in favor of volume depletion/ prerenal factors as a cause for acute kidney injury. Currently, at the time my evaluation, she appears to be in no acute distress. Review of Systems 2 Review of Systems: As per HPI. [facility] Past Medical History Medical History History of ectopic Paroxysmal atrial fibrillation Multiple sclerosis (1997) Hypertension Cellulitis Family History Family History Father Cerebrovascular accident Hypertension CAD (coronary artery disease) Social History Social History Smoking status: Never smoker Second hand tobacco smoke exposure: No Alcohol intake: never Substance use: never Substance use type: does not use Do You Feel Safe in your Home?: Yes Lack of Transportation: No Lack of Food: Never True Current Housing: I Have Housing Concerned About Future Housing: No Difficulty Paying Gas/Electric Bills: No Difficulty Paying for Meds: No Currently Unemployed: No Education: Associate Degree Difficulty w/ Childcare or Family Care: No Spiritual care concerns: No Meds Home Medications and Allergies Home Medications ?Medication ?Instructions ?Recorded ?Confirmed ?Type lisinopril 5 mg tablet 5 mg PO DAILY #90 tabs 10/27/23 06/09/24 Rx dimethyl fumarate 240 mg 240 mg PO BID #180 caps 05/13/24 06/09/24 Rx capsule,delayed release (Tecfidera) indapamide 2.5 mg tablet 2.5 mg PO DAILY #90 tabs 05/13/24 06/09/24 Rx amoxicillin 875 mg-potassium 1 tablet PO Q12H #4 tabs 06/14/24 Rx clavulanate 125 mg tablet Allergies Allergy/AdvReac Type Severity Reaction Status Date / Time Seasonal Allergies Allergy Mild itchiness Uncoded 03/11/24 13:18 Vital Signs Vital Signs Temp Pulse Resp BP Pulse Ox O2 Del Method 06/10/24 10:20 96 105/60 95 06/10/24 10:04 Room Air 06/10/24 09:05 Room Air 06/10/24 08:00 98.2 F 89 16 99/61 L 100 06/10/24 04:00 98.3 F 89 16 90/58 L 100 06/10/24 00:00 98.3 F 91 18 99/46 L 98 06/09/24 22:00 98.9 F 98 16 83/54 L 97 06/09/24 19:32 91 20 06/09/24 19:31 90 24 H 106/67 06/09/24 19:30 106/67 06/09/24 19:16 85 17 06/09/24 19:02 87 20 100 06/09/24 19:01 88 18 96/66 L 100 06/09/24 18:46 86 17 85/59 L 99 06/09/24 18:45 85 8 L 100 06/09/24 18:31 86 15 94/60 L 06/09/24 18:30 87 18 06/09/24 18:16 87 13 88/59 L 06/09/24 18:15 87 15 06/09/24 18:01 94 24 H 95/78 L 100 06/09/24 18:00 92 34 H 100 06/09/24 17:55 87 15 96/71 L 100 06/09/24 17:45 87 18 06/09/24 17:42 91 20 06/09/24 17:16 99 20 100/82 06/09/24 17:15 96 23 H 06/09/24 17:12 97 26 H 94/72 L 100 06/09/24 17:00 93 21 H 06/09/24 16:47 93 23 H 85/65 L 89 L 06/09/24 16:45 93 25 H 06/09/24 16:37 95 16 06/09/24 16:36 95 26 H 82/61 L 06/09/24 16:21 97.5 F L 98 16 77/50 L 100 Room Air Exam 2 Narrative: GENERAL APPEARANCE: frail appearing female in no acute distress HEENT: normocephalic, atraumatic, normal conjunctiva and sclera, nares patient NECK: no lymphadenopathy, thyromegaly, or JVD MOUTH: normal lips, teeth, and gums CARDIOVASCULAR: RRR, normal S1 and S2, no rub RESPIRATORY: clear to auscultation bilaterally ABDOMEN: soft, nontender, nondistended, positive bowel sounds present EXTREMITIES: no evidence of cyanosis, clubbing, or edema NEUROLOGICAL: alert and oriented x 3; CN II - XII intact bilaterally; no focal deficits noted Results Lab Results 06/15/24 06:09 06/15/24 06:09 Lab results: Most recent lab results Calcium 8.4 mg/dL (8.4-10.2) 06/10/24 07:08 Urine Creatinine 173.9 mg/dL 06/09/24 23:56 Urine Creatinine 181.0 mg/dL 06/09/24 23:56
--- NOTE | 2024-06-10 13:46 | P.CDI_ITS ---
CDI Query Clarification Request BMI: 21.2 Nutritional Diagnostic Statement: Please refer to the comprehensive nutrition assessment for further information. If you agree with diagnosis of Moderate protein calorie malnutrition related to inadequate energy intake as evidenced by pt report of poor po intake greater than 1 month, -16% wt loss x 3 months, and NFPE findings for moderate subcutaneous fat loss (cheeks) and moderate muscle wasting (temples). Please specify severity if known: * Mild * Moderate * Severe * Other/Unknown
[2024-06-10 18:31] LABS: Thyroid Stimulating Hormone Reflex 0.525 uIU/mL (0.465-4.68)
[2024-06-11] VITALS (8 sets, daily range): BP systolic 92–137; BP diastolic 60–77; PULSE 58–92; RESP 16–18; TEMP 36.6–37.4; O2SAT 99–100
[2024-06-11] MEDS: SODIUM CHLORIDE 0.9% IV 1,000 ML 100 ML IV CONT ×2 (02:15→12:56)
[2024-06-11 05:14] LABS: Hepatitis B Core Ab Total NON-REACTIVE (NON-REACTIVE)
[2024-06-11 05:59] LABS: Basophils Absolute Auto 0.1 K/mm3 (0.0-0.1); Basophils Percent Auto 1.1 % (0.2-1.2); Eosinophils Absolute Auto 0.3 K/mm3 (0-0.3); Eosinophils Percent Auto 3.9 % (0-4.4); Hematocrit 24.6 % (37.0-47.0); Hemoglobin 8.8 g/dL (12.0-15.0); Immature Granulocyte Absolute 0.03 K/mm3 (0.00-0.031); Immature Granulocyte Percent A 0.5 % (0-0.5); Lymphocytes Absolute Auto 0.93 K/mm3 (0.9-3.2); Mean Corpuscular HGB Conc 35.8 g/dl (32-36); Mean Corpuscular Hemoglobin 28.9 pg (26-34); Mean Corpuscular Volume 80.9 fl (80-100); Mean Platelet Volume 10.7 fl (7.4-10.4); Monocytes Absolute Auto 0.8 K/mm3 (0.1-0.6); Monocytes Percent Auto 12.5 % (2.6-8.5); Neutrophils Absolute Auto 4.5 K/mm3 (1.3-6.7); Platelet Count Result 244 k/mm3 (150-375); Red Blood Count 3.04 M/mm3 (4.2-5.4); Red Cell Distribution Width 15.7 % (11.5-14.5); White Blood Count 6.7 K/mm3 (4.5-10.0)
[2024-06-11 06:53] LABS: Alanine Aminotransferase 8 U/L (6-35); Albumin Level 2.6 g/dL (3.5-5.1); Alkaline Phosphatase 53 U/L (38-126); Anion Gap 10 mmol/L (4-12); Aspartate Amino Transferase 19 U/L (14-36); Bilirubin,Total 0.6 mg/dL (0.2-1.3); Blood Urea Nitrogen 44 mg/dL (7-17); Calcium 8.3 mg/dL (8.4-10.2); Carbon Dioxide 20 mmol/L (22-30); Chloride 109 mmol/L (98-107); Estimated CRCL calculation 28 ml/min; Estimated Glomerular Filt Rate 41; Glucose 80 mg/dL (65-110); Potassium 3.2 mmol/L (3.4-5.0); Sodium 139 mmol/L (137-145)
--- NOTE | 2024-06-11 08:56 | P.PNIM_ITS ---
Progress Note: A&P Assessment and Plan (1) Fall: Code(s): W19.XXXA - Unspecified fall, initial encounter Status: Acute Assessment and Plan: History of MS. Patient has had 6 falls in 6 months per sons. Most recent fall was on Monday when patient reportedly slid out of her chair. Patient is unable to remember if she hit her head or loss of consciousness with this fall. She states she thinks her legs gave out on her and does not report dizziness/lightheadedness prior to these falls. Per sons patient has not been complaining of dizziness/lightheadedness or palpitations. Not on anticoagulation. - Head CT: 1. No fracture or acute intracranial process. 2. Age-related changes including mild to moderate diffuse on loss and extensive white matter hypoattenuation consistent with chronic small vessel isc hemic disease. - PT/OT Recommending placement (2) Hypotension: Code(s): I95.9 - Hypotension, unspecified Status: Acute Assessment and Plan: Patient consistently hypotensive but maps have been above 60s. 3 L IVF given in ED, 1 L IVF given on admission. Blood pressures have improved with fluids. Likely related to dehydration. Continue NS 100 ml/hr Holding lisinopril 5 mg daily and indapamide 2.5 mg daily Blood pressures remain stable and continue to improve, continue to monitor (3) UTI (urinary tract infection): Code(s): N39.0 - Urinary tract infection, site not specified Status: Acute Assessment and Plan: Per chart review patient was having UTI symptoms 2 weeks ago for which her PCP sent her oral antibiotics. She completed the course but symptoms did not improve. Denies UTI symptoms, but was having confusion and weakness. - UA: cloudy appearance with trace ketones, 2+ bili, 1+ leukocytes, 11-20 RBC, 0-5 WBC, moderate squamous cells, no bacteria. Possible contaminant. - UC obtained on 06/10: pending - no previous micro to be reviewed - started on Rocephin on 06/09 (4) ESTEFANÍA (acute kidney injury): Code(s): N17.9 - Acute kidney failure, unspecified Status: Acute Assessment and Plan: BUN/Cr 83/5.37 with GFR 10 on admission, previously BUN/Cr 17/0.90 with GFR >60 in 2022 BUN/Cr 44/1.53 with GFR 41 Holding lisinopril 5 mg daily and indapamide 2.5 mg daily NS 100 ml/hr Avoid nephrotoxic medications Renally dose medications Monitor intake and output Renal US: Normal kidneys without hydronephrosis. The right kidney is however poorly visualized. Nephrology consulted Continue current treatment (5) Dehydration: Code(s): E86.0 - Dehydration Status: Acute Assessment and Plan: Fluid bolus and IV hydration Replace electrolytes as needed Daily labs (6) Hypertension: Code(s): I10 - Essential (primary) hypertension Status: Acute Assessment and Plan: Holding lisinopril 5 mg daily and indapamide 2.5 mg daily due to hypotension Resume as appropriate (7) Multiple sclerosis: Onset Date: 1997 Code(s): G35 - Multiple sclerosis Status: Acute Assessment and Plan: PT OT Continue home meds Time Spent With Patient Time with patient: 25 - 35 minutes Subjective Date/time seen: 06/11/24 08:56 Interval history: 63-year-old female with history of MS, hypertension and atrial fibrillation presents the hospital with increased weakness and foul-smelling urine. Patient is pleasant lying comfortably in bed with son at bedside. She has no complaints at this time denies chest pain, shortness a breath, nausea / vomiting, and abdominal pain. Her blood pressures and kidney injury continued to improved on IV fluids. Physical therapy and occupational therapy continue to work with her and she will require placement at time of discharge. Review of Systems Review of Systems: All systems reviewed & are unremarkable except as noted in HPI and below Exam Narrative: AF HR 74 RR 16 Spo2 99 BP 137/72 General: female in no acute respiratory distress who is nontoxic appearing, sitting up in bed. HEENT: Normocephalic. Atraumatic. Extraocular movement intact. Sclera clear and anicteric. No facial asymmetry. Chest: Lungs are clear to auscultation bilaterally. No wheezes or crackles. CV: Heart was regular rate and rhythm. S1-S2. No murmurs, gallops, or rubs. Abd: Abdomen was soft. Nontender. Nondistended. Positive bowel sounds. Ext: No clubbing, cyanosis, or edema. 2+ DP pulses bilaterally. Neuro: Patient is alert and oriented x2. Strength is weak but symmetrical in both upper and lower extremities with push/pulls. No extremity drift. Speech continues to be slow. Objective Data Vital Signs Vital Signs: Vital Signs - 24 hr 06/10/24 09:05 06/10/24 10:04 06/10/24 10:20 Temperature Pulse Rate 96 Respiratory Rate Blood Pressure 105/60 Pulse Oximetry 95 Oxygen Delivery Room Air Room Air 06/10/24 11:40 06/10/24 12:00 06/10/24 16:00 Temperature 97.8 F 97.8 F Pulse Rate 82 86 Respiratory Rate 18 18 Blood Pressure 100/68 100/70 Pulse Oximetry 100 99 Oxygen Delivery Room Air 06/10/24 20:00 06/10/24 21:05 06/11/24 00:45 Temperature 98.4 F 98.5 F Pulse Rate 64 80 Respiratory Rate 18 16 Blood Pressure 101/63 92/60 L Pulse Oximetry 95 99 Oxygen Delivery Room Air 06/11/24 01:29 06/11/24 04:00 06/11/24 08:00 Temperature 98.3 F 98.6 F 98.2 F Pulse Rate 80 58 L 61 Respiratory Rate 16 18 16 Blood Pressure 92/60 L 110/68 110/68 Pulse Oximetry 99 100 99 Oxygen Delivery Intake/Output Intake/Output: Intake & Output 06/08/24 06/09/24 06/10/24 06/11/24 23:59 23:59 23:59 23:59 Intake Total 50 4935.8 100 Balance 50 4935.8 100 Meds/Results Medications: Active Medications Generic Name Dose Route Start Last Admin Trade Name Freq PRN Reason Stop Dose Admin Acetaminophen 650 mg 06/09/24 22:45 Acetaminophen 325 Mg Tablet PO Q4H PRN Mild Pain (1-3) or Fever Docusate Sodium 100 mg 06/10/24 09:00 06/10/24 22:30 Docusate Sodium 100 Mg Capsule PO 100 mg Q12HR APRYL Administration Enoxaparin Sodium 40 mg 06/10/24 09:00 06/10/24 09:06 Enoxaparin 40 Mg/0.4 Ml Syringe SUB-Q 40 mg DAILY APRYL Administration Sodium Chloride 1,000 mls @ 100 mls/hr 06/09/24 18:50 06/11/24 04:16 Normal Saline Iv IV CONT Not Given .Q10H APRYL Ceftriaxone Sodium 1 gm in 50 mls @ 100 mls/hr 06/09/24 23:00 06/10/24 23:00 Rocephin 1 Gm/Ns 50 Ml IVPB Infused HS APRYL Infusion Miscellaneous Information 1 each 06/10/24 00:01 06/11/24 04:17 (Dimethyl Fumarate [Tecfidera] 240 Mg Capsule Is Nonform; Can Pt Use From Home? XX 07/10/24 00:00 Not Given CLARIFY APRYL Non-Formulary Medication 240 mg 06/10/24 09:00 Dimethyl Fumarate [Tecfidera] PO 07/10/24 08:59 BID [facility] Radiology Results: ITS Impressions Chest X-Ray 06/09/24 18:27 IMPRESSION: No acute cardiopulmonary process. Renal Ultrasound 06/10/24 08:46 IMPRESSION: 1. Normal kidneys without hydronephrosis. The right kidney is however poorly visualized. Head CT 06/10/24 13:51 IMPRESSION: 1. No fracture or acute intracranial process. 2. Age-related changes including mild to moderate diffuse on loss and extensive white matter hypoattenuation consistent with chronic small vessel ischemic disease. Labs Labs: Laboratory Results - last 24 hr 06/10/24 06/10/24 06/11/24 07:04 07:08 05:40 WBC 6.7 RBC 3.04 L Hgb 8.8 L Hct 24.6 L MCV 80.9 MCH 28.9 MCHC 35.8 RDW 15.7 H Plt Count 244 MPV 10.7 H Immature Gran % (Auto) 0.5 Neut % (Auto) 68.0 Lymph % (Auto) 14.0 L [place] % (Auto) 12.5 H Eos % (Auto) 3.9 Baso % (Auto) 1.1 Lymph # (Auto) 0.93 [place] # (Auto) 0.8 H Eos # (Auto) 0.3 Baso # (Auto) 0.1 Abs Immat Gran (auto) 0.03 Absolute Neuts (auto) 4.5 Absolute Nucleated RBC 0.000 Nucleated RBC % 0.0 Sodium 139 Potassium 3.2 L Chloride 109 H Carbon Dioxide 20 L Anion Gap 10 BUN 44 H D Creatinine 1.53 H Estim Creat Clear Calc 28 Estimated GFR 41 L Glucose 80 Calcium 8.3 L Total Bilirubin 0.6 AST 19 ALT 8 Alkaline Phosphatase 53 Total Protein 6.0 L Albumin 2.6 L TSH (Reflex) 0.525 Hep Bs Antigen Negative Hep Bs Antibody Negative Hep B Core Total Ab Non-reactive Quality VTE Prophylaxis VTE prophylaxis: mechanical ordered and pharmacologic ordered
[2024-06-11] MEDS: ENOXAPARIN 40 MG/0.4 ML SYRINGE SUB-Q (09:03)
[2024-06-11] MEDS: DOCUSATE SODIUM 100 MG CAPSULE PO ×2 (09:03→21:39)
--- NOTE | 2024-06-11 10:56 | P.PNNP_ITS ---
Progress Note: A&P Assessment and Plan (1) ESTEFANÍA (acute kidney injury): Code(s): N17.9 - Acute kidney failure, unspecified Status: Acute Assessment and Plan: * improvement noted * history would suggest prerenal factor/volume depletion worsened by hypotension as etiology * evaluation to date noted: * urine electrolytes prerenal * urine eosinophils negative * possible UTI by UA - follow culture * CPK normal * renal ultrasound normal * hold lisinopril and indapamide * continue IVFs for now - wean as oral intake improves * follow trend of repeat labs and UOP (2) Hypotension: Code(s): I95.9 - Hypotension, unspecified Status: Acute Assessment and Plan: * as noted in ER * BP medications on hold * continue IVF hydration (3) UTI (urinary tract infection): Code(s): N39.0 - Urinary tract infection, site not specified Status: Acute Assessment and Plan: * suspected based on UA * follow-up on culture - no growth so far * on empiric antibiotics (4) Hypertension: Code(s): I10 - Essential (primary) hypertension Status: Acute Assessment and Plan: * not an issue at this time * BP medications on hold due to #2 * follow trend of hemodynamics (5) Multiple sclerosis: Onset Date: 1997 Code(s): G35 - Multiple sclerosis Status: Acute Assessment and Plan: * continue home medications I will continue to follow the patient with you while she remains hospitalized and make further recommendations as deemed necessary. Thank you for allowing me to participate in the care of this patient. L Subjective Date/time seen: 06/11/24 10:56 Interval history: Follow-up for acute kidney injury/acute renal failure. Renal function/creatinine continues to improve by trend of labs with current therapy/interventions; mentation also better per family at bedside; no apparent distress noted; feels reasonably well. Exam 2 Narrative: General: elderly but WD/WN female in NAD Heart: normal S1 and S2; no rub Lungs: clear to auscultation Abdomen: soft, nontender, nondistended, positive bowel sounds Extremities: no cyanosis or clubbing; no edema Skin: warm and dry Objective Data Vital Signs Vital Signs: Vital Signs Temp Pulse Resp BP Pulse Ox O2 Del Method 06/11/24 08:00 98.2 F 61 16 110/68 99 06/11/24 04:00 98.6 F 58 L 18 110/68 100 06/11/24 01:29 98.3 F 80 16 92/60 L 99 06/11/24 00:45 98.5 F 80 16 92/60 L 99 06/10/24 21:05 98.4 F 64 18 101/63 95 06/10/24 20:00 Room Air 06/10/24 16:00 97.8 F 86 18 100/70 99 Intake/Output Intake/Output: Intake & Output 06/08/24 06/09/24 06/10/24 06/11/24 23:59 23:59 23:59 23:59 Intake Total 50 4935.8 340 Balance 50 4935.8 340 Meds/Results Medications: Active Medications Generic Name Dose Route Start Last Admin Trade Name Freq PRN Reason Stop Dose Admin Acetaminophen 650 mg 06/09/24 22:45 Acetaminophen 325 Mg Tablet PO Q4H PRN Mild Pain (1-3) or Fever Docusate Sodium 100 mg 06/10/24 09:00 06/11/24 09:03 Docusate Sodium 100 Mg Capsule PO 100 mg Q12HR APRYL Administration Enoxaparin Sodium 30 mg 06/12/24 09:00 Enoxaparin 30 Mg/0.3 Ml Syringe SUB-Q DAILY APRYL Sodium Chloride 1,000 mls @ 100 mls/hr 06/09/24 18:50 06/11/24 04:16 Normal Saline Iv IV CONT Not Given .Q10H APRYL Ceftriaxone Sodium 1 gm in 50 mls @ 100 mls/hr 06/09/24 23:00 06/10/24 23:00 Rocephin 1 Gm/Ns 50 Ml IVPB Infused APRYL Infusion Miscellaneous Information 1 each 06/10/24 00:01 06/11/24 04:17 (Dimethyl Fumarate [Tecfidera] 240 Mg Capsule Is Nonform; Can Pt Use From Home? XX 07/10/24 00:00 Not Given CLARIFY APRYL Non-Formulary Medication 240 mg 06/10/24 09:00 Dimethyl Fumarate [Tecfidera] PO 07/10/24 08:59 BID [facility] Radiology Results: ITS Impressions Chest X-Ray 06/09/24 18:27 IMPRESSION: No acute cardiopulmonary process. Renal Ultrasound 06/10/24 08:46 IMPRESSION: 1. Normal kidneys without hydronephrosis. The right kidney is however poorly visualized. Head CT 06/10/24 13:51 IMPRESSION: 1. No fracture or acute intracranial process. 2. Age-related changes including mild to moderate diffuse on loss and extensive white matter hypoattenuation consistent with chronic small vessel ischemic disease. Labs Labs: Laboratory Tests 06/11/24 05:40 06/11/24 05:40 Calcium 8.3 L Total Bilirubin 0.6 AST 19 ALT 8 Alkaline Phosphatase 53 Total Protein 6.0 L Albumin 2.6 L Microbiology 06/09/24 17:05 Blood Blood Culture - Preliminary 06/09/24 19:49 Blood Blood Culture - Preliminary
[2024-06-11] MEDS: POTASSIUM CHLORIDE 20 MEQ ER TABLET 40 MEQ PO (12:56)
[2024-06-12 03:41] VITALS: BP 111/62; PULSE 87; RESP 20; TEMP 37.2; O2SAT 99
[2024-06-12 06:44] LABS: Basophils Absolute Auto 0.1 K/mm3 (0.0-0.1); Basophils Percent Auto 0.8 % (0.2-1.2); Eosinophils Absolute Auto 0.1 K/mm3 (0-0.3); Eosinophils Percent Auto 1.4 % (0-4.4); Hematocrit 29.3 % (37.0-47.0); Hemoglobin 10.2 g/dL (12.0-15.0); Immature Granulocyte Absolute 0.05 K/mm3 (0.00-0.031); Immature Granulocyte Percent A 0.8 % (0-0.5); Lymphocytes Absolute Auto 0.61 K/mm3 (0.9-3.2); Lymphocytes Percent Auto 9.2 % (18.3-44.2); Mean Corpuscular HGB Conc 34.8 g/dl (32-36); Mean Corpuscular Volume 80.5 fl (80-100); Mean Platelet Volume 11.2 fl (7.4-10.4); Monocytes Absolute Auto 0.8 K/mm3 (0.1-0.6); Monocytes Percent Auto 11.3 % (2.6-8.5); Neutrophils Absolute Auto 5.1 K/mm3 (1.3-6.7); Neutrophils Percent Auto 76.5 % (45.5-73.1); Platelet Count Result 245 k/mm3 (150-375); Red Blood Count 3.64 M/mm3 (4.2-5.4); Red Cell Distribution Width 15.6 % (11.5-14.5); White Blood Count 6.6 K/mm3 (4.5-10.0)
[2024-06-12 07:07] LABS: Alanine Aminotransferase 14 U/L (6-35); Albumin Level 2.9 g/dL (3.5-5.1); Alkaline Phosphatase 59 U/L (38-126); Anion Gap 7 mmol/L (4-12); Aspartate Amino Transferase 23 U/L (14-36); Bilirubin,Total 0.4 mg/dL (0.2-1.3); Blood Urea Nitrogen 21 mg/dL (7-17); Calcium 8.4 mg/dL (8.4-10.2); Carbon Dioxide 25 mmol/L (22-30); Chloride 107 mmol/L (98-107); Estimated CRCL calculation 40 ml/min; Estimated Glomerular Filt Rate > 60; Glucose 102 mg/dL (65-110); Potassium 2.9 mmol/L (3.4-5.0); Sodium 139 mmol/L (137-145)
[2024-06-12 08:00] VITALS: BP 126/77; PULSE 85; RESP 18; TEMP 36.6; O2SAT 98
[2024-06-12] MEDS: ENOXAPARIN 40 MG/0.4 ML SYRINGE SUB-Q (09:17)
[2024-06-12 12:00] VITALS: BP 132/91; PULSE 97; RESP 20; TEMP 37.2; O2SAT 99
--- NOTE | 2024-06-12 12:01 | P.PNNP_ITS ---
Progress Note: A&P Assessment and Plan (1) ESTEFANÍA (acute kidney injury): Code(s): N17.9 - Acute kidney failure, unspecified Status: Acute Assessment and Plan: * improvement noted if not resolved * history would suggest prerenal factor/volume depletion worsened by hypotension as etiology * evaluation to date noted: * urine electrolytes prerenal * urine eosinophils negative * possible UTI by UA - follow culture * CPK normal * renal ultrasound normal * hold lisinopril and indapamide * continue IVFs for now - wean as oral intake improves * follow trend of repeat labs and UOP (2) Hypotension: Code(s): I95.9 - Hypotension, unspecified Status: Acute Assessment and Plan: * BP slowly improving * as noted in ER * BP medications on hold * continue IVF hydration (3) UTI (urinary tract infection): Code(s): N39.0 - Urinary tract infection, site not specified Status: Acute Assessment and Plan: * suspected based on UA * follow-up on culture - no growth so far * on empiric antibiotics (4) Hypertension: Code(s): I10 - Essential (primary) hypertension Status: Acute Assessment and Plan: * not an issue at this time * BP medications on hold due to #2 * follow trend of hemodynamics (5) Multiple sclerosis: Onset Date: 1997 Code(s): G35 - Multiple sclerosis Status: Acute Assessment and Plan: * continue home medications Not much else to add -- will continue to follow from a distance. L Subjective Date/time seen: 06/12/24 12:01 Interval history: Follow-up for acute kidney injury/acute renal failure. Renal function/creatinine continues to improve with current therapy/interventions; reported more sleepy/lethargic earlier this AM; otherwise, no apparent distress noted; no other acute issues/events overnight or earlier this AM. Exam 2 Narrative: General: elderly but WD/WN female in NAD Heart: normal S1 and S2; no rub Lungs: clear to auscultation Abdomen: soft, nontender, nondistended, positive bowel sounds Extremities: no cyanosis or clubbing; no edema Skin: warm and intact Objective Data Vital Signs Vital Signs: Vital Signs Temp Pulse Resp BP Pulse Ox O2 Del Method 06/12/24 12:00 98.9 F 97 20 132/91 H 99 06/12/24 08:00 97.8 F 85 18 126/77 98 06/12/24 03:41 99.0 F 87 20 111/62 99 06/11/24 23:42 99.4 F 92 18 117/77 99 06/11/24 20:00 90 18 99 Room Air 06/11/24 20:00 99.1 F 90 18 124/77 99 Intake/Output Intake/Output: Intake & Output 06/09/24 06/10/24 06/11/24 06/12/24 23:59 23:59 23:59 23:59 Intake Total 50 4935.8 1940 1472 Output Total 2300 Balance 50 4935.8 1940 -828 Meds/Results Medications: Active Medications Generic Name Dose Route Start Last Admin Trade Name Freq PRN Reason Stop Dose Admin Acetaminophen 650 mg 06/09/24 22:45 Acetaminophen 325 Mg Tablet PO Q4H PRN Mild Pain (1-3) or Fever Docusate Sodium 100 mg 06/10/24 09:00 06/12/24 09:19 Docusate Sodium 100 Mg Capsule PO Not Given Q12HR APRYL Enoxaparin Sodium 40 mg 06/12/24 09:00 06/12/24 09:17 Enoxaparin 40 Mg/0.4 Ml Syringe SUB-Q 40 mg DAILY APRYL Administration Guaifenesin/Dextromethorphan 5 ml 06/11/24 19:39 06/12/24 15:41 Guaifenesin/Dextromethorphan 10 Ml Udc PO 5 ml Q4H PRN Administration Cough Sodium Chloride 1,000 mls @ 50 mls/hr 06/09/24 18:50 06/12/24 15:38 Normal Saline Iv IV CONT Infused .Q20H APRYL Infusion Potassium Chloride 40 meq/ 520 mls @ 130 mls/hr 06/12/24 13:36 06/12/24 15:40 Sodium Chloride IVPB 06/12/24 17:35 130 mls/hr ONCE ONE Administration Ceftriaxone Sodium 1 gm in 50 mls @ 100 mls/hr 06/12/24 21:00 Rocephin 1 Gm/Ns 50 Ml IVPB 06/15/24 23:59 Q24H APRYL Miscellaneous Information 1 each 06/10/24 00:01 06/11/24 04:17 (Dimethyl Fumarate [Tecfidera] 240 Mg Capsule Is Nonform; Can Pt Use From Home? XX 07/10/24 00:00 Not Given [facility] Non-Formulary Medication 240 mg 06/10/24 09:00 Dimethyl Fumarate [Tecfidera] PO 07/10/24 08:59 BID [facility] Radiology Results: ITS Impressions Renal Ultrasound 06/10/24 08:46 IMPRESSION: 1. Normal kidneys without hydronephrosis. The right kidney is however poorly visualized. Head CT 06/10/24 13:51 IMPRESSION: 1. No fracture or acute intracranial process. 2. Age-related changes including mild to moderate diffuse on loss and extensive white matter hypoattenuation consistent with chronic small vessel ischemic disease. Chest X-Ray 06/12/24 15:47 IMPRESSION: 1. Mild streaky opacities along the elevated right hemidiaphragm, most likely atelectasis although differential includes aspiration or pneumonia. Labs Labs: Laboratory Tests 06/12/24 06:12 06/12/24 06:12 Calcium 8.4 Total Bilirubin 0.4 AST 23 ALT 14 Alkaline Phosphatase 59 Total Protein 7.0 Albumin 2.9 L Microbiology 06/10/24 00:05 Urine - Urine,Catheterized Urine Culture - Final
--- NOTE | 2024-06-12 13:39 | P.PNIM_ITS ---
Progress Note: A&P Assessment and Plan (1) Fall: Code(s): W19.XXXA - Unspecified fall, initial encounter Status: Acute Assessment and Plan: History of MS. Patient has had 6 falls in 6 months per sons. Most recent fall was on Monday when patient reportedly slid out of her chair. Patient is unable to remember if she hit her head or loss of consciousness with this fall. She states she thinks her legs gave out on her and does not report dizziness/lightheadedness prior to these falls. Per sons patient has not been complaining of dizziness/lightheadedness or palpitations. Not on anticoagulation. - Head CT: 1. No fracture or acute intracranial process. 2. Age-related changes including mild to moderate diffuse on loss and extensive white matter hypoattenuation consistent with chronic small vessel isc hemic disease. - PT/OT Recommending placement (2) Hypotension: Code(s): I95.9 - Hypotension, unspecified Status: Acute Assessment and Plan: Patient consistently hypotensive but maps have been above 60s. 3 L IVF given in ED, 1 L IVF given on admission. Blood pressures have improved with fluids. Likely related to dehydration. Continue NS 100 ml/hr Holding lisinopril 5 mg daily and indapamide 2.5 mg daily Blood pressures remain stable and continue to improve, continue to monitor continue to monitor (3) UTI (urinary tract infection): Code(s): N39.0 - Urinary tract infection, site not specified Status: Acute Assessment and Plan: Per chart review patient was having UTI symptoms 2 weeks ago for which her PCP sent her oral antibiotics. She completed the course but symptoms did not improve. Denies UTI symptoms, but was having confusion and weakness. - UA: cloudy appearance with trace ketones, 2+ bili, 1+ leukocytes, 11-20 RBC, 0-5 WBC, moderate squamous cells, no bacteria. Possible contaminant. - UC obtained on 06/10: pending - no previous micro to be reviewed - started on Rocephin on 06/09 was changed to PO antibiotics- but due to possibility of aspiration, will continue IV antibiotics for now until speech sees her and clears her to take PO (4) ESTEFANÍA (acute kidney injury): Code(s): N17.9 - Acute kidney failure, unspecified Status: Acute Assessment and Plan: BUN/Cr 83/5.37 with GFR 10 on admission, previously BUN/Cr 17/0.90 with GFR >60 in 2022 BUN/Cr 44/1.53 with GFR 41 Holding lisinopril 5 mg daily and indapamide 2.5 mg daily NS 100 ml/hr Avoid nephrotoxic medications Renally dose medications Monitor intake and output Renal US: Normal kidneys without hydronephrosis. The right kidney is however poorly visualized. Nephrology consulted Continue current treatment (5) Dehydration: Code(s): E86.0 - Dehydration Status: Acute Assessment and Plan: Fluid bolus and IV hydration Replace electrolytes as needed Daily labs (6) Hypertension: Code(s): I10 - Essential (primary) hypertension Status: Acute Assessment and Plan: Holding lisinopril 5 mg daily and indapamide 2.5 mg daily due to hypotension Resume as appropriate (7) Multiple sclerosis: Onset Date: 1997 Code(s): G35 - Multiple sclerosis Status: Acute Assessment and Plan: PT OT Continue home meds Plan weak and more drowsy today- will order chest xray to assess for aspiration. speech therapy ordered Time Spent With Patient Time with patient: 25 - 35 minutes Subjective Date/time seen: 06/12/24 13:39 Interval history: 63-year-old female with history of MS, hypertension and atrial fibrillation presents the hospital with increased weakness and foul-smelling urine. 06/12 assuming care. Per nursing report, pt is a bit more drowsy and out of it . Has weak, dry cough, possibly pocketing food, ? aspiration. PT/OT ordered but today, she was too weak to work with them. During my assessment, she was drowsy but appropriate, answered all questions and denied any pain or any acute issues. Review of Systems Review of Systems: 12 systems were reviewed and are negativ e except for as per HPI. All systems reviewed & are unremarkable except as noted in HPI and below Exam Narrative: General: female in no acute respiratory distress who is nontoxic appearing, laying in bed HEENT: Normocephalic. Atraumatic. Extraocular movement intact. Sclera clear and anicteric. No facial asymmetry. Chest: Lungs are clear to auscultation bilaterally. No wheezes or crackles. CV: Heart was regular rate and rhythm. S1-S2. No murmurs, gallops, or rubs. Abd: Abdomen was soft. Nontender. Nondistended. Positive bowel sounds. Ext: No clubbing, cyanosis, or edema. 2+ DP pulses bilaterally. Neuro: Patient is alert and oriented x2. Strength is weak but symmetrical in both upper and lower extremities with push/pulls. No extremity drift. Speech continues to be slow. Const: General: comfortable Objective Data Vital Signs Vital Signs: Vital Signs - 24 hr 06/11/24 15:58 06/11/24 20:00 06/11/24 20:00 Temperature 97.8 F 99.1 F Pulse Rate 78 90 90 Respiratory Rate 18 18 18 Blood Pressure 112/68 124/77 Pulse Oximetry 99 99 99 Oxygen Delivery Room Air 06/11/24 23:42 06/12/24 03:41 06/12/24 08:00 Temperature 99.4 F 99.0 F 97.8 F Pulse Rate 92 87 85 Respiratory Rate 18 20 18 Blood Pressure 117/77 111/62 126/77 Pulse Oximetry 99 99 98 Oxygen Delivery 06/12/24 12:00 Temperature 98.9 F Pulse Rate 97 Respiratory Rate 20 Blood Pressure 132/91 H Pulse Oximetry 99 Oxygen Delivery Intake/Output Intake/Output: Intake & Output 06/09/24 06/10/24 06/11/24 06/12/24 23:59 23:59 23:59 23:59 Intake Total 50 4935.8 1940 472 Output Total 1800 Balance 50 4935.8 1940 -1328 Meds/Results Medications: Active Medications Generic Name Dose Route Start Last Admin Trade Name Freq PRN Reason Stop Dose Admin Acetaminophen 650 mg 06/09/24 22:45 Acetaminophen 325 Mg Tablet PO Q4H PRN Mild Pain (1-3) or Fever Amoxicillin/Clavulanate Potassium 1 tablet 06/12/24 21:00 Amoxicillin/Clavulanate K 875-125 Mg Tab PO 06/16/24 09:01 Q12HR APRYL Docusate Sodium 100 mg 06/10/24 09:00 06/12/24 09:19 Docusate Sodium 100 Mg Capsule PO Not Given Q12HR APRYL Enoxaparin Sodium 40 mg 06/12/24 09:00 06/12/24 09:17 Enoxaparin 40 Mg/0.4 Ml Syringe SUB-Q 40 mg DAILY APRYL Administration Guaifenesin/Dextromethorphan 5 ml 06/11/24 19:39 Guaifenesin/Dextromethorphan 10 Ml Udc PO Q4H PRN Cough Sodium Chloride 1,000 mls @ 100 mls/hr 06/09/24 18:50 06/12/24 09:33 Normal Saline Iv IV CONT Not Given .Q10H APRYL Potassium Chloride 40 meq/ 520 mls @ 130 mls/hr 06/12/24 13:36 Sodium Chloride IVPB 06/12/24 17:35 ONCE ONE Miscellaneous Information 1 each 06/10/24 00:01 06/11/24 04:17 (Dimethyl Fumarate [Tecfidera] 240 Mg Capsule Is Nonform; Can Pt Use From Home? XX 07/10/24 00:00 Not Given CL[facility]IFY [facility] Non-Formulary Medication 240 mg 06/10/24 09:00 Dimethyl Fumarate [Tecfidera] PO 07/10/24 08:59 BID [facility] Radiology Results: ITS Impressions Chest X-Ray 06/09/24 18:27 IMPRESSION: No acute cardiopulmonary process. Renal Ultrasound 06/10/24 08:46 IMPRESSION: 1. Normal kidneys without hydronephrosis. The right kidney is however poorly visualized. Head CT 06/10/24 13:51 IMPRESSION: 1. No fracture or acute intracranial process. 2. Age-related changes including mild to moderate diffuse on loss and extensive white matter hypoattenuation consistent with chronic small vessel ischemic disease. Labs Labs: Laboratory Results - last 24 hr 06/12/24 06:12 WBC 6.6 RBC 3.64 L Hgb 10.2 L Hct 29.3 L MCV 80.5 MCH 28.0 MCHC 34.8 RDW 15.6 H Plt Count 245 MPV 11.2 H Immature Gran % (Auto) 0.8 H Neut % (Auto) 76.5 H Lymph % (Auto) 9.2 L [place] % (Auto) 11.3 H Eos % (Auto) 1.4 Baso % (Auto) 0.8 Lymph # (Auto) 0.61 L [place] # (Auto) 0.8 H Eos # (Auto) 0.1 Baso # (Auto) 0.1 Abs Immat Gran (auto) 0.05 H Absolute Neuts (auto) 5.1 Absolute Nucleated RBC 0.000 Nucleated RBC % 0.0 Sodium 139 Potassium 2.9 L Chloride 107 Carbon Dioxide 25 Anion Gap 7 BUN 21 H D Creatinine 1.05 H Estim Creat Clear Calc 40 Estimated GFR > 60 Glucose 102 Calcium 8.4 Total Bilirubin 0.4 AST 23 ALT 14 Alkaline Phosphatase 59 Total Protein 7.0 Albumin 2.9 L Quality VTE Prophylaxis VTE prophylaxis: mechanical ordered and pharmacologic ordered
[2024-06-12] MEDS: POTASSIUM CHLORIDE INJ 40 MEQ in SODIUM CHLORIDE 0.9% IV 500 ML 130 MEQ IVPB (15:40)
[2024-06-12] MEDS: guaiFENesin/DEXTROMETHORPHAN 10 ML UDC 5 ML PO (15:41)
[2024-06-12 16:00] VITALS: BP 167/88; PULSE 99; RESP 18; TEMP 37.4; O2SAT 97
--- NOTE | 2024-06-12 16:22 | PCPTNOTE ---
The patient treatment was not able to be completed this morning when PT was attempted due to patient being assisted with bath by nursing students. Will plan to continue treatment per plan of care.
--- NOTE | 2024-06-12 16:28 | PC.NURSE ---
On 06/12/24, the student, [Iman Ortiz ], provided care and completed [facility] documentation on this patient. I have reviewed the student's documentation and agree with the findings.
--- NOTE | 2024-06-12 17:49 | PM.EVENT ---
Event Note Event Note Event Note: The patient has evidence of aspiration. Ordered MBS and NPO.
[2024-06-12 20:34] VITALS: BP 132/85; PULSE 101; RESP 22; TEMP 37.2; O2SAT 99
[2024-06-13] VITALS (7 sets, daily range): BP systolic 95–139; BP diastolic 66–84; PULSE 78–95; RESP 16–22; TEMP 36.2–38.1; O2SAT 94–100; BMI 10.0
[2024-06-13 07:15] LABS: Basophils Absolute Auto 0.1 K/mm3 (0.0-0.1); Basophils Percent Auto 0.8 % (0.2-1.2); Eosinophils Percent Auto 0.5 % (0-4.4); Hematocrit 29.1 % (37.0-47.0); Hemoglobin 10.2 g/dL (12.0-15.0); Immature Granulocyte Absolute 0.05 K/mm3 (0.00-0.031); Immature Granulocyte Percent A 0.8 % (0-0.5); Lymphocytes Absolute Auto 1.02 K/mm3 (0.9-3.2); Lymphocytes Percent Auto 15.7 % (18.3-44.2); Mean Corpuscular HGB Conc 35.1 g/dl (32-36); Mean Corpuscular Hemoglobin 28.2 pg (26-34); Mean Corpuscular Volume 80.4 fl (80-100); Mean Platelet Volume 11.5 fl (7.4-10.4); Monocytes Percent Auto 14.7 % (2.6-8.5); Neutrophils Absolute Auto 4.4 K/mm3 (1.3-6.7); Neutrophils Percent Auto 67.5 % (45.5-73.1); Platelet Count Result 227 k/mm3 (150-375); Red Blood Count 3.62 M/mm3 (4.2-5.4); Red Cell Distribution Width 15.6 % (11.5-14.5); White Blood Count 6.5 K/mm3 (4.5-10.0)
[2024-06-13 07:30] LABS: Alanine Aminotransferase 15 U/L (6-35); Albumin Level 2.9 g/dL (3.5-5.1); Alkaline Phosphatase 46 U/L (38-126); Anion Gap 7 mmol/L (4-12); Aspartate Amino Transferase 32 U/L (14-36); Bilirubin,Total 0.5 mg/dL (0.2-1.3); Blood Urea Nitrogen 16 mg/dL (7-17); Carbon Dioxide 29 mmol/L (22-30); Chloride 100 mmol/L (98-107); Estimated CRCL calculation 42 ml/min; Estimated Glomerular Filt Rate > 60; Glucose 90 mg/dL (65-110); Potassium 3.6 mmol/L (3.4-5.0); Sodium 136 mmol/L (137-145)
[2024-06-13] MEDS: DOCUSATE SODIUM 100 MG CAPSULE PO ×2 (09:00→20:19)
[2024-06-13] MEDS: ENOXAPARIN 40 MG/0.4 ML SYRINGE SUB-Q (09:00)
[2024-06-13] MEDS: SODIUM CHLORIDE 0.9% IV 1,000 ML 50 ML IV CONT (09:09)
--- NOTE | 2024-06-13 09:21 | PCPTNOTE ---
On 06/13/24, the student, BEBA Wade, provided care and completed [facility] documentation on this patient. I have reviewed the student's documentation and agree with the findings.
--- NOTE | 2024-06-13 11:30 | PCSTNOTE ---
Please refer to the Modified Barium Swallow Evaluation in the EMR. The patient with a longstanding diagnosis of MS was seen for a modified barium swallow; she was seated for a lateral view and presented with 5cc of thin liquid barium via spoon, pudding consistency barium via a spoon, cracker coated with barium pudding via spoon, and uncontrolled thin liquid barium. This was presented via a cup & straw. Oral preparatory and oral phase symptoms: none. Pharyngeal phase symptoms: none. Esophageal stage symptoms: RAD noted an esophageal web which was without effect. No aspiration occurred. Impressions: Normal swallow Ability No further ST is warranted at this time.
--- NOTE | 2024-06-13 14:23 | P.PNIM_ITS ---
Progress Note: A&P Assessment and Plan (1) Fall: Code(s): W19.XXXA - Unspecified fall, initial encounter Status: Acute Assessment and Plan: History of MS. Patient has had 6 falls in 6 months per sons. Most recent fall was on Monday when patient reportedly slid out of her chair. Patient is unable to remember if she hit her head or loss of consciousness with this fall. She states she thinks her legs gave out on her and does not report dizziness/lightheadedness prior to these falls. Per sons patient has not been complaining of dizziness/lightheadedness or palpitations. Not on anticoagulation. - Head CT: 1. No fracture or acute intracranial process. 2. Age-related changes including mild to moderate diffuse on loss and extensive white matter hypoattenuation consistent with chronic small vessel isc hemic disease. - PT/OT Recommending placement (2) Hypotension: Code(s): I95.9 - Hypotension, unspecified Status: Acute Assessment and Plan: Patient consistently hypotensive but maps have been above 60s. 3 L IVF given in ED, 1 L IVF given on admission. Blood pressures have improved with fluids. Likely related to dehydration. Continue NS 100 ml/hr Holding lisinopril 5 mg daily and indapamide 2.5 mg daily Blood pressures remain stable and continue to improve, continue to monitor continue to monitor (3) UTI (urinary tract infection): Code(s): N39.0 - Urinary tract infection, site not specified Status: Acute Assessment and Plan: Per chart review patient was having UTI symptoms 2 weeks ago for which her PCP sent her oral antibiotics. She completed the course but symptoms did not improve. Denies UTI symptoms, but was having confusion and weakness. - UA: cloudy appearance with trace ketones, 2+ bili, 1+ leukocytes, 11-20 RBC, 0-5 WBC, moderate squamous cells, no bacteria. Possible contaminant. - UC obtained on 06/10: pending - no previous micro to be reviewed - started on Rocephin on 06/09 was changed to PO antibiotics- but due to possibility of aspiration, will continue IV antibiotics for now until speech sees her and clears her to take PO (4) ESTEFANÍA (acute kidney injury): Code(s): N17.9 - Acute kidney failure, unspecified Status: Acute Assessment and Plan: BUN/Cr 83/5.37 with GFR 10 on admission, previously BUN/Cr 17/0.90 with GFR >60 in 2022 BUN/Cr 44/1.53 with GFR 41 Holding lisinopril 5 mg daily and indapamide 2.5 mg daily NS 100 ml/hr Avoid nephrotoxic medications Renally dose medications Monitor intake and output Renal US: Normal kidneys without hydronephrosis. The right kidney is however poorly visualized. Nephrology consulted Continue current treatment (5) Dehydration: Code(s): E86.0 - Dehydration Status: Acute Assessment and Plan: Fluid bolus and IV hydration Replace electrolytes as needed Daily labs (6) Hypertension: Code(s): I10 - Essential (primary) hypertension Status: Acute Assessment and Plan: Holding lisinopril 5 mg daily and indapamide 2.5 mg daily due to hypotension Resume as appropriate (7) Multiple sclerosis: Onset Date: 1997 Code(s): G35 - Multiple sclerosis Status: Acute Assessment and Plan: PT OT Continue home meds Plan MBS: IMPRESSION: Live interrogation demonstrates a possible esophageal web at the level of C6/C7 for which nonemergent follow-up is suggested. No penetration or aspiration identified will re order diet and monitor Time Spent With Patient Time with patient: 25 - 35 minutes Subjective Date/time seen: 06/13/24 14:23 Interval history: Pt is seen and examined. She is more alert today. Son at the bedside- updated on condition- all questions answered. Had MBS IMPRESSION: Live interrogation demonstrates a possible esophageal web at the level of C6/C7 for which nonemergent follow-up is suggested. No penetration or aspiration identified Review of Systems Review of Systems: 12 systems were reviewed and are negativ e except for as per HPI. All systems reviewed & are unremarkable except as noted in HPI and below Exam Narrative: General: female in no acute respiratory distress who is nontoxic appearing, laying in bed HEENT: Normocephalic. Atraumatic. Extraocular movement intact. Sclera clear and anicteric. No facial asymmetry. Chest: Lungs are clear to auscultation bilaterally. No wheezes or crackles. CV: Heart was regular rate and rhythm. S1-S2. No murmurs, gallops, or rubs. Abd: Abdomen was soft. Nontender. Nondistended. Positive bowel sounds. Ext: No clubbing, cyanosis, or edema. 2+ DP pulses bilaterally. Neuro: Patient is alert and oriented x2. Strength is weak but symmetrical in both upper and lower extremities with push/pulls. No extremity drift. Speech continues to be slow. Const: General: comfortable Objective Data Vital Signs Vital Signs: Vital Signs - 24 hr 06/12/24 16:00 06/12/24 20:34 06/13/24 00:43 Temperature 99.3 F 98.9 F Pulse Rate 99 101 H 87 Respiratory Rate 18 22 H 18 Blood Pressure 167/88 H 132/85 121/72 Pulse Oximetry 97 99 96 Oxygen Delivery 06/13/24 05:29 06/13/24 08:39 06/13/24 09:00 Temperature 99.0 F Pulse Rate 92 Respiratory Rate 22 H Blood Pressure 118/73 Pulse Oximetry 94 95 Oxygen Delivery Room Air Room Air 06/13/24 09:38 06/13/24 12:47 Temperature 97.1 F L 98.6 F Pulse Rate 78 91 Respiratory Rate 16 16 Blood Pressure 139/84 95/66 L Pulse Oximetry 100 99 Oxygen Delivery Intake/Output Intake/Output: Intake & Output 06/10/24 06/11/24 06/12/24 06/13/24 23:59 23:59 23:59 23:59 Intake Total 4935.8 1940 1472 350 Output Total 2550 850 Balance 4935.8 5878 -9358 -105 Meds/Results Medications: Active Medications Generic Name Dose Route Start Last Admin Trade Name Freq PRN Reason Stop Dose Admin Acetaminophen 650 mg 06/09/24 22:45 Acetaminophen 325 Mg Tablet PO Q4H PRN Mild Pain (1-3) or Fever Docusate Sodium 100 mg 06/10/24 09:00 06/13/24 09:00 Docusate Sodium 100 Mg Capsule PO 100 mg Q12HR APRYL Administration Enoxaparin Sodium 40 mg 06/12/24 09:00 06/13/24 09:00 Enoxaparin 40 Mg/0.4 Ml Syringe SUB-Q 40 mg DAILY APRYL Administration Guaifenesin/Dextromethorphan 5 ml 06/11/24 19:39 06/12/24 15:41 Guaifenesin/Dextromethorphan 10 Ml Udc PO 5 ml Q4H PRN Administration Cough Sodium Chloride 1,000 mls @ 50 mls/hr 06/09/24 18:50 06/13/24 09:09 Normal Saline Iv IV CONT 50 mls/hr .Q20H APRYL Administration Ceftriaxone Sodium 1 gm in 50 mls @ 100 mls/hr 06/12/24 21:00 06/12/24 20:49 Rocephin 1 Gm/Ns 50 Ml IVPB 06/15/24 23:59 100 mls/hr Q24H APRYL Administration Miscellaneous Information 1 each 06/10/24 00:01 06/11/24 04:17 (Dimethyl Fumarate [Tecfidera] 240 Mg Capsule Is Nonform; Can Pt Use From Home? XX 07/10/24 00:00 Not Given CLARIFY [facility] Non-Formulary Medication 240 mg 06/10/24 09:00 Dimethyl Fumarate [Tecfidera] PO 07/10/24 08:59 BID [facility] Radiology Results: ITS Impressions Renal Ultrasound 06/10/24 08:46 IMPRESSION: 1. Normal kidneys without hydronephrosis. The right kidney is however poorly visualized. Head CT 06/10/24 13:51 IMPRESSION: 1. No fracture or acute intracranial process. 2. Age-related changes including mild to moderate diffuse on loss and extensive white matter hypoattenuation consistent with chronic small vessel ischemic disease. Chest X-Ray 06/12/24 15:47 IMPRESSION: 1. Mild streaky opacities along the elevated right hemidiaphragm, most likely atelectasis although differential includes aspiration or pneumonia. Modified Barium Swallow 06/13/24 11:42 IMPRESSION: Live interrogation demonstrates a possible esophageal web at the level of C6/C7 for which nonemergent follow-up is suggested. No penetration or aspiration identified Labs Labs: Laboratory Results - last 24 hr 06/13/24 06:40 WBC 6.5 RBC 3.62 L Hgb 10.2 L Hct 29.1 L MCV 80.4 MCH 28.2 MCHC 35.1 RDW 15.6 H Plt Count 227 MPV 11.5 H Immature Gran % (Auto) 0.8 H Neut % (Auto) 67.5 Lymph % (Auto) 15.7 L [place] % (Auto) 14.7 H Eos % (Auto) 0.5 Baso % (Auto) 0.8 Lymph # (Auto) 1.02 [place] # (Auto) 1.0 H Eos # (Auto) 0.0 Baso # (Auto) 0.1 Abs Immat Gran (auto) 0.05 H Absolute Neuts (auto) 4.4 Absolute Nucleated RBC 0.000 Nucleated RBC % 0.0 Sodium 136 L Potassium 3.6 Chloride 100 Carbon Dioxide 29 Anion Gap 7 BUN 16 Creatinine 0.99 Estim Creat Clear Calc 42 Estimated GFR > 60 Glucose 90 Calcium 8.0 L Total Bilirubin 0.5 AST 32 ALT 15 Alkaline Phosphatase 46 Total Protein 7.0 Albumin 2.9 L Quality VTE Prophylaxis VTE prophylaxis: mechanical ordered and pharmacologic ordered
[2024-06-14] VITALS (9 sets, daily range): BP systolic 112–136; BP diastolic 64–86; PULSE 80–92; RESP 14–18; TEMP 36.6–38.6; O2SAT 95–100
[2024-06-14] MEDS: SODIUM CHLORIDE 0.9% IV 1,000 ML 50 ML IV CONT (04:47)
[2024-06-14] MEDS: ENOXAPARIN 40 MG/0.4 ML SYRINGE SUB-Q (09:25)
[2024-06-14] MEDS: DOCUSATE SODIUM 100 MG CAPSULE PO ×2 (09:25→21:00)
--- NOTE | 2024-06-14 09:53 | PM.DS ---
DS: Admitting Diagnosis Discharge Date 06/14 Admitting Diagnosis uti, weakness DS: Discharge Diagnosis Discharge Diagnosis (1) Fall: Code(s): W19.XXXA - Unspecified fall, initial encounter Status: Acute (2) Hypotension: Code(s): I95.9 - Hypotension, unspecified Status: Acute (3) UTI (urinary tract infection): Code(s): N39.0 - Urinary tract infection, site not specified Status: Acute (4) ESTEFANÍA (acute kidney injury): Code(s): N17.9 - Acute kidney failure, unspecified Status: Acute (5) Dehydration: Code(s): E86.0 - Dehydration Status: Acute (6) Hypertension: Code(s): I10 - Essential (primary) hypertension Status: Acute (7) Multiple sclerosis: Onset Date: 1997 Code(s): G35 - Multiple sclerosis Status: Acute DS: Summary Hospital Course Hospital Course: 63-year-old female with history of MS, hypertension and atrial fibrillation presents the hospital with increased weakness and foul-smelling urine. Patient has left with her son for the last 3 years he states that at baseline she can walk. He states last week he felt that she was having a urinary tract infection so he called her doctor and get order for p.o. antibiotics. During her hospital stay- she worked with PT/OT but inconsistent as some days she was too weak and drowsy to do anything. There was a concern for aspiration as she was coughing a lot after eating. She had speech therapy eval., MBS MBS: IMPRESSION: Live interrogation demonstrates a possible esophageal web at the level of C6/C7 for which nonemergent follow-up is suggested. No penetration or aspiration identified- she was cleared to have diet. Education was done on sitting up right to eat, tuck her chin when swallowing. # fall # MS History of MS. Patient has had 6 falls in 6 months per sons. Most recent fall was on Monday when patient reportedly slid out of her chair. Patient is unable to remember if she hit her head or loss of consciousness with this fall. She states she thinks her legs gave out on her and does not report dizziness/lightheadedness prior to these falls. Per sons patient has not been complaining of dizziness/lightheadedness or palpitations. Not on anticoagulation. - Head CT: 1. No fracture or acute intracranial process. 2. Age-related changes including mild to moderate diffuse on loss and extensive white matter hypoattenuation consistent with chronic small vessel ischemic disease. - PT/OT Recommending placement # UTI Per chart review patient was having UTI symptoms 2 weeks ago for which her PCP sent her oral antibiotics. She completed the course but symptoms did not improve. Denies UTI symptoms, but was having confusion and weakness. - UA: cloudy appearance with trace ketones, 2+ bili, 1+ leukocytes, 11-20 RBC, 0-5 WBC, moderate squamous cells, no bacteria. Possible contaminant. - UC obtained on 06/10: pending - no previous micro to be reviewed - started on Rocephin on 06/09 -switched to PO augmentin - last dose 06/16 0900 #HTN were holding lisinopril 5 mg daily and indapamide 2.5 mg daily due to hypotension and ESTEFANÍA BP improved - so medications can be restarted, last BP 123/86 monitor closely # estefanía improved cr/bun 0.99/16-back to baseline will restart lisinopril 5 mg and indapamide 2.5 mg monitor kidney function closely Status at Discharge Functional status at discharge: wheelchair bound Overall status at discharge: patient is progressing back to baseline Time Spent with Patient Time attestation: Total time spent providing and/or coordinating discharge services: Time spent: Greater than 30 minutes Exam Narrative: General: female in no acute respiratory distress who is nontoxic appearing, laying in bed HEENT: Normocephalic. Atraumatic. Extraocular movement intact. Sclera clear and anicteric. No facial asymmetry. Chest: Lungs are clear to auscultation bilaterally. No wheezes or crackles. CV: Heart was regular rate and rhythm. S1-S2. No murmurs, gallops, or rubs. Abd: Abdomen was soft. Nontender. Nondistended. Positive bowel sounds. Ext: No clubbing, cyanosis, or edema. 2+ DP pulses bilaterally. Neuro: Patient is alert and oriented x2. Strength is weak but symmetrical in both upper and lower extremities with push/pulls. No extremity drift. Speech continues to be slow. Const: General: comfortable DS: Data Data Completed and Pending Labs on day of discharge: Preliminary micro results at discharge 06/09/24 17:05 Blood Culture - Preliminary Blood 06/09/24 19:49 Blood Culture - Preliminary Blood Discharge Plan Discharge Attending physician on discharge: Dino Kelly Consulting providers: Angie Osullivan Discharging Clinician: Katherin Anthony Patient Disposition: SNF Activity: september shower Diet: as tolerated and heart healthy Patient Language: Vincentian Stand Alone Forms: General Discharge Information Follow-up/Referrals: Tico Laboy MD [Primary Care Provider] - 2 Weeks Discharge Medications: New amoxicillin-pot clavulanate 875-125 mg tablet 1 tablet PO Q12H Qty: 4 0RF Continued lisinopril 5 mg tablet 5 mg PO DAILY Qty: 90 1RF indapamide 2.5 mg tablet 2.5 mg PO DAILY Qty: 90 1RF dimethyl fumarate [Tecfidera] 240 mg capsule,delayed release(DR/EC) 240 mg PO BID Qty: 180 0RF Date of admission: 06/09/24 18:04 Primary Care Provider: Tico Laboy Admitting Provider: Alvaro Lara Attending physician on admission: Myranda Walsh Condition: Improved Quality VTE Prophylaxis VTE prophylaxis: mechanical ordered and pharmacologic ordered Hospitalist MIPS Heart Failure (Exclusion) Patient has history of Heart Transplant or Left Ventricular Assistive Device?: No IF YES, STOP HERE Heart Failure (Qualifier) Patient has current or prior documentation of LVEF less than or equal to 40%, or mod/servere depressed LVSF?: No IF NO, STOP HERE
[2024-06-14 10:25] LABS: Basophils Percent Auto 0.7 % (0.2-1.2); Eosinophils Percent Auto 0.2 % (0-4.4); Hematocrit 28.9 % (37.0-47.0); Hemoglobin 10.3 g/dL (12.0-15.0); Immature Granulocyte Absolute 0.02 K/mm3 (0.00-0.031); Immature Granulocyte Percent A 0.4 % (0-0.5); Lymphocytes Absolute Auto 0.81 K/mm3 (0.9-3.2); Lymphocytes Percent Auto 14.6 % (18.3-44.2); Mean Corpuscular HGB Conc 35.6 g/dl (32-36); Mean Corpuscular Volume 78.5 fl (80-100); Mean Platelet Volume 10.7 fl (7.4-10.4); Monocytes Absolute Auto 0.6 K/mm3 (0.1-0.6); Monocytes Percent Auto 10.3 % (2.6-8.5); Neutrophils Absolute Auto 4.1 K/mm3 (1.3-6.7); Neutrophils Percent Auto 73.8 % (45.5-73.1); Platelet Count Result 236 k/mm3 (150-375); Red Blood Count 3.68 M/mm3 (4.2-5.4); Red Cell Distribution Width 15.2 % (11.5-14.5); White Blood Count 5.6 K/mm3 (4.5-10.0)
[2024-06-14 10:43] LABS: Alanine Aminotransferase 21 U/L (6-35); Albumin Level 2.9 g/dL (3.5-5.1); Alkaline Phosphatase 49 U/L (38-126); Anion Gap 11 mmol/L (4-12); Aspartate Amino Transferase 43 U/L (14-36); Bilirubin,Total 0.4 mg/dL (0.2-1.3); Blood Urea Nitrogen 14 mg/dL (7-17); Calcium 7.8 mg/dL (8.4-10.2); Carbon Dioxide 25 mmol/L (22-30); Chloride 102 mmol/L (98-107); Estimated CRCL calculation 52 ml/min; Estimated Glomerular Filt Rate > 60; Glucose 113 mg/dL (65-110); Potassium 2.4 mmol/L (3.4-5.0); Sodium 138 mmol/L (137-145)
[2024-06-14] MEDS: MAGNESIUM OXIDE 400 MG TABLET PO (12:48)
[2024-06-14] MEDS: POTASSIUM CHLORIDE INJ 40 MEQ in SODIUM CHLORIDE 0.9% IV 500 ML 130 MEQ IVPB (12:48)
--- NOTE | 2024-06-14 13:07 | PCPTNOTE ---
On 06/14/24, the student, BEBA Wade, provided care and completed [facility] documentation on this patient. I have reviewed the student's documentation and agree with the findings.
[2024-06-14 17:56] LABS: Glucose Point of Care 92 mg/dl (65-105)
[2024-06-14] MEDS: ACETAMINOPHEN 325 MG TABLET 650 MG PO (19:48)
[2024-06-14] MEDS: AMOXICILLIN/CLAVULANATE K 875-125 MG TAB 1 TABLET PO (20:59)
[2024-06-15] VITALS (7 sets, daily range): BP systolic 100–146; BP diastolic 62–81; PULSE 74–89; RESP 16–89; TEMP 36.2–36.8; O2SAT 97–100
[2024-06-15 06:35] LABS: Basophils Percent Auto 0.5 % (0.2-1.2); Eosinophils Absolute Auto 0.1 K/mm3 (0-0.3); Eosinophils Percent Auto 1.6 % (0-4.4); Hematocrit 29.6 % (37.0-47.0); Hemoglobin 10.5 g/dL (12.0-15.0); Immature Granulocyte Absolute 0.01 K/mm3 (0.00-0.031); Immature Granulocyte Percent A 0.3 % (0-0.5); Lymphocytes Absolute Auto 0.72 K/mm3 (0.9-3.2); Lymphocytes Percent Auto 19.3 % (18.3-44.2); Mean Corpuscular HGB Conc 35.5 g/dl (32-36); Mean Corpuscular Hemoglobin 28.5 pg (26-34); Mean Corpuscular Volume 80.2 fl (80-100); Mean Platelet Volume 11.1 fl (7.4-10.4); Monocytes Absolute Auto 0.4 K/mm3 (0.1-0.6); Monocytes Percent Auto 9.9 % (2.6-8.5); Neutrophils Absolute Auto 2.6 K/mm3 (1.3-6.7); Neutrophils Percent Auto 68.4 % (45.5-73.1); Platelet Count Result 250 k/mm3 (150-375); Red Blood Count 3.69 M/mm3 (4.2-5.4); Red Cell Distribution Width 15.6 % (11.5-14.5); White Blood Count 3.7 K/mm3 (4.5-10.0)
[2024-06-15 06:57] LABS: Alanine Aminotransferase 21 U/L (6-35); Albumin Level 2.9 g/dL (3.5-5.1); Alkaline Phosphatase 52 U/L (38-126); Anion Gap 9 mmol/L (4-12); Aspartate Amino Transferase 44 U/L (14-36); Bilirubin,Total 0.5 mg/dL (0.2-1.3); Blood Urea Nitrogen 12 mg/dL (7-17); Calcium 8.1 mg/dL (8.4-10.2); Carbon Dioxide 24 mmol/L (22-30); Chloride 107 mmol/L (98-107); Estimated CRCL calculation 53 ml/min; Estimated Glomerular Filt Rate > 60; Glucose 82 mg/dL (65-110); Potassium 2.8 mmol/L (3.4-5.0); Sodium 140 mmol/L (137-145)
[2024-06-15] MEDS: POTASSIUM CHLORIDE INJ 40 MEQ in SODIUM CHLORIDE 0.9% IV 500 ML 130 MEQ IVPB (08:54)
[2024-06-15] MEDS: ENOXAPARIN 40 MG/0.4 ML SYRINGE SUB-Q (08:55)
[2024-06-15] MEDS: DOCUSATE SODIUM 100 MG CAPSULE PO ×2 (08:55→21:13)
[2024-06-15] MEDS: POTASSIUM CHLORIDE 20 MEQ PACKET (FOR LIQUID) 40 MEQ PO (08:55)
[2024-06-15] MEDS: MAGNESIUM OXIDE 400 MG TABLET PO (08:55)
[2024-06-15] MEDS: AMOXICILLIN/CLAVULANATE K 875-125 MG TAB 1 TABLET PO ×2 (08:55→21:12)
[2024-06-15 12:37] LABS: Magnesium 1.2 mg/dL (1.6-2.3)
--- NOTE | 2024-06-15 15:26 | P.PNIM_ITS ---
Progress Note: A&P Assessment and Plan (1) Fall: Code(s): W19.XXXA - Unspecified fall, initial encounter Status: Acute Assessment and Plan: History of MS. Patient has had 6 falls in 6 months per sons. Most recent fall was on Monday when patient reportedly slid out of her chair. Patient is unable to remember if she hit her head or loss of consciousness with this fall. She states she thinks her legs gave out on her and does not report dizziness/lightheadedness prior to these falls. Per sons patient has not been complaining of dizziness/lightheadedness or palpitations. Not on anticoagulation. - Head CT: 1. No fracture or acute intracranial process. 2. Age-related changes including mild to moderate diffuse on loss and extensive white matter hypoattenuation consistent with chronic small vessel isc hemic disease. - PT/OT Recommending placement (2) Hypotension: Code(s): I95.9 - Hypotension, unspecified Status: Acute Assessment and Plan: Patient consistently hypotensive but maps have been above 60s. 3 L IVF given in ED, 1 L IVF given on admission. Blood pressures have improved with fluids. Likely related to dehydration. Continue NS 100 ml/hr Holding lisinopril 5 mg daily and indapamide 2.5 mg daily Blood pressures remain stable and continue to improve, continue to monitor continue to monitor (3) UTI (urinary tract infection): Code(s): N39.0 - Urinary tract infection, site not specified Status: Acute Assessment and Plan: Per chart review patient was having UTI symptoms 2 weeks ago for which her PCP sent her oral antibiotics. She completed the course but symptoms did not improve. Denies UTI symptoms, but was having confusion and weakness. - UA: cloudy appearance with trace ketones, 2+ bili, 1+ leukocytes, 11-20 RBC, 0-5 WBC, moderate squamous cells, no bacteria. Possible contaminant. - UC obtained on 06/10: pending - no previous micro to be reviewed - started on Rocephin on 06/09 was changed to PO antibiotics- but due to possibility of aspiration, will continue IV antibiotics for now until speech sees her and clears her to take PO (4) ESTEFANÍA (acute kidney injury): Code(s): N17.9 - Acute kidney failure, unspecified Status: Acute Assessment and Plan: BUN/Cr 83/5.37 with GFR 10 on admission, previously BUN/Cr 17/0.90 with GFR >60 in 2022 BUN/Cr 44/1.53 with GFR 41 Holding lisinopril 5 mg daily and indapamide 2.5 mg daily NS 100 ml/hr Avoid nephrotoxic medications Renally dose medications Monitor intake and output Renal US: Normal kidneys without hydronephrosis. The right kidney is however poorly visualized. Nephrology consulted Continue current treatment (5) Dehydration: Code(s): E86.0 - Dehydration Status: Acute Assessment and Plan: Fluid bolus and IV hydration Replace electrolytes as needed Daily labs (6) Hypertension: Code(s): I10 - Essential (primary) hypertension Status: Acute Assessment and Plan: Holding lisinopril 5 mg daily and indapamide 2.5 mg daily due to hypotension Resume as appropriate (7) Multiple sclerosis: Onset Date: 1997 Code(s): G35 - Multiple sclerosis Status: Acute Assessment and Plan: PT OT Continue home meds Plan MBS: IMPRESSION: Live interrogation demonstrates a possible esophageal web at the level of C6/C7 for which nonemergent follow-up is suggested. No penetration or aspiration identified will re order diet and monitor Time Spent With Patient Time with patient: 25 - 35 minutes Subjective Date/time seen: 06/15/24 15:26 Interval history: K was rechecked-better but still low. Will replace, add mg level and replace if needed. anticipate discharge tomorrow. Review of Systems Review of Systems: 12 systems were reviewed and are negativ e except for as per HPI. All systems reviewed & are unremarkable except as noted in HPI and below Exam Narrative: General: female in no acute respiratory distress who is nontoxic appearing, laying in bed HEENT: Normocephalic. Atraumatic. Extraocular movement intact. Sclera clear and anicteric. No facial asymmetry. Chest: Lungs are clear to auscultation bilaterally. No wheezes or crackles. CV: Heart was regular rate and rhythm. S1-S2. No murmurs, gallops, or rubs. Abd: Abdomen was soft. Nontender. Nondistended. Positive bowel sounds. Ext: No clubbing, cyanosis, or edema. 2+ DP pulses bilaterally. Neuro: Patient is alert and oriented x2. Strength is weak but symmetrical in both upper and lower extremities with push/pulls. No extremity drift. Speech continues to be slow. Const: General: comfortable Objective Data Vital Signs Vital Signs: Vital Signs - 24 hr 06/14/24 16:00 06/14/24 19:48 06/14/24 20:00 Temperature 98.2 F 101.5 F H 101.5 F H Pulse Rate 92 89 Respiratory Rate 18 14 Blood Pressure 115/78 126/71 Pulse Oximetry 100 95 Oxygen Delivery 06/14/24 21:00 06/14/24 21:00 06/14/24 23:56 Temperature 99.1 F 98.0 F Pulse Rate 81 82 Respiratory Rate 16 Blood Pressure 118/64 Pulse Oximetry 96 Oxygen Delivery 06/15/24 00:00 06/15/24 04:00 06/15/24 04:00 Temperature 97.3 F L Pulse Rate 74 89 74 Respiratory Rate 22 H Blood Pressure 146/81 H Pulse Oximetry 97 Oxygen Delivery 06/15/24 08:00 06/15/24 08:00 06/15/24 08:00 Temperature 97.2 F L Pulse Rate 88 85 Respiratory Rate 16 Blood Pressure 118/77 Pulse Oximetry 99 Oxygen Delivery Room Air 06/15/24 12:00 Temperature 98.2 F Pulse Rate 77 Respiratory Rate 18 Blood Pressure 111/67 Pulse Oximetry 100 Oxygen Delivery Intake/Output Intake/Output: Intake & Output 06/12/24 06/13/24 06/14/24 06/15/24 23:59 23:59 23:59 23:59 Intake Total 7210 881 5912.7 270 Output Total 2550 1350 1100 300 Balance -1028 -550 1029.7 -30 Meds/Results Medications: Active Medications Generic Name Dose Route Start Last Admin Trade Name Freq PRN Reason Stop Dose Admin Acetaminophen 650 mg 06/09/24 22:45 06/14/24 19:48 Acetaminophen 325 Mg Tablet PO 650 mg Q4H PRN Administration Mild Pain (1-3) or Fever Amoxicillin/Clavulanate Potassium 1 tablet 06/14/24 21:00 06/15/24 08:55 Amoxicillin/Clavulanate K 875-125 Mg Tab PO 06/16/24 09:01 1 tablet Q12HR APRYL Administration Docusate Sodium 100 mg 06/10/24 09:00 06/15/24 08:55 Docusate Sodium 100 Mg Capsule PO 100 mg Q12HR APRYL Administration Enoxaparin Sodium 40 mg 06/12/24 09:00 06/15/24 08:55 Enoxaparin 40 Mg/0.4 Ml Syringe SUB-Q 40 mg DAILY APRYL Administration Guaifenesin/Dextromethorphan 5 ml 06/11/24 19:39 06/12/24 15:41 Guaifenesin/Dextromethorphan 10 Ml Udc PO 5 ml Q4H PRN Administration Cough Sodium Chloride 1,000 mls @ 50 mls/hr 06/09/24 18:50 06/15/24 09:15 Normal Saline Iv IV CONT Not Given .Q20H APRYL Magnesium Sulfate 2 gm in 50 mls @ 25 mls/hr 06/15/24 15:25 Magnesium Sulf 2 Gm/Water 50ml IVPB 06/15/24 17:24 ONCE ONE Miscellaneous Information 1 each 06/10/24 00:01 06/11/24 04:17 (Dimethyl Fumarate [Tecfidera] 240 Mg Capsule Is Nonform; Can Pt Use From Home? XX 07/10/24 00:00 Not Given CLARIFY APRYL Non-Formulary Medication 240 mg 06/10/24 09:00 Dimethyl Fumarate [Tecfidera] PO 07/10/24 08:59 BID APRYL Potassium Chloride 40 meq 06/15/24 09:00 06/15/24 08:55 Potassium Chloride 20 Meq Packet (For Liquid) PO 06/21/24 09:01 40 meq DAILY APRYL Administration Radiology Results: ITS Impressions Renal Ultrasound 06/10/24 08:46 IMPRESSION: 1. Normal kidneys without hydronephrosis. The right kidney is however poorly visualized. Head CT 06/10/24 13:51 IMPRESSION: 1. No fracture or acute intracranial process. 2. Age-related changes including mild to moderate diffuse on loss and extensive white matter hypoattenuation consistent with chronic small vessel ischemic disease. Chest X-Ray 06/12/24 15:47 IMPRESSION: 1. Mild streaky opacities along the elevated right hemidiaphragm, most likely atelectasis although differential includes aspiration or pneumonia. Modified Barium Swallow 06/13/24 11:42 IMPRESSION: Live interrogation demonstrates a possible esophageal web at the level of C6/C7 for which nonemergent follow-up is suggested. No penetration or aspiration identified Labs Labs: Laboratory Results - last 24 hr 06/14/24 06/15/24 06/15/24 17:50 06:06 06:09 WBC 3.7 L RBC 3.69 L Hgb 10.5 L Hct 29.6 L MCV 80.2 MCH 28.5 MCHC 35.5 RDW 15.6 H Plt Count 250 MPV 11.1 H Immature Gran % (Auto) 0.3 Neut % (Auto) 68.4 Lymph % (Auto) 19.3 [place] % (Auto) 9.9 H Eos % (Auto) 1.6 Baso % (Auto) 0.5 Lymph # (Auto) 0.72 L [place] # (Auto) 0.4 Eos # (Auto) 0.1 Baso # (Auto) 0.0 Abs Immat Gran (auto) 0.01 Absolute Neuts (auto) 2.6 Absolute Nucleated RBC 0.000 Nucleated RBC % 0.0 Sodium 140 Potassium 2.8 L* Chloride 107 Carbon Dioxide 24 Anion Gap 9 BUN 12 Creatinine 0.77 Estim Creat Clear Calc 53 Estimated GFR > 60 Glucose 82 POC Capillary Glucose 92 Calcium 8.1 L Magnesium 1.2 L Total Bilirubin 0.5 AST 44 H ALT 21 Alkaline Phosphatase 52 Total Protein 7.0 Albumin 2.9 L Quality VTE Prophylaxis VTE prophylaxis: mechanical ordered and pharmacologic ordered
[2024-06-15] MEDS: MAGNESIUM SULF 2 GM/WATER 50ML 2 GM/50 ML BAG IVPB (17:48)
[2024-06-15 23:45] LABS: Glucose Point of Care 107 mg/dl (65-105)
[2024-06-16] VITALS: PULSE 82
[2024-06-16 04:00] VITALS: PULSE 71
[2024-06-16 05:15] VITALS: BP 110/72; PULSE 85; RESP 16; TEMP 36.3; O2SAT 99
[2024-06-16 08:00] VITALS: PULSE 77
[2024-06-16 08:17] LABS: Hematocrit 25.8 % (37.0-47.0); Mean Corpuscular HGB Conc 34.9 g/dl (32-36); Mean Corpuscular Volume 80.4 fl (80-100); Mean Platelet Volume 10.6 fl (7.4-10.4); Platelet Count Result 232 k/mm3 (150-375); Red Blood Count 3.21 M/mm3 (4.2-5.4); Red Cell Distribution Width 15.7 % (11.5-14.5); White Blood Count 3.6 K/mm3 (4.5-10.0)
[2024-06-16 08:54] LABS: Anion Gap 6 mmol/L (4-12); Blood Urea Nitrogen 7 mg/dL (7-17); Calcium 7.7 mg/dL (8.4-10.2); Carbon Dioxide 22 mmol/L (22-30); Chloride 113 mmol/L (98-107); Estimated CRCL calculation 57 ml/min; Estimated Glomerular Filt Rate > 60; Glucose 90 mg/dL (65-110); Potassium 3.5 mmol/L (3.4-5.0); Sodium 141 mmol/L (137-145)
--- NOTE | 2024-06-16 09:06 | P.DS_ITS ---
DS: Admitting Diagnosis Discharge Date 06/16 Admitting Diagnosis weakness, uti DS: Discharge Diagnosis Discharge Diagnosis (1) Fall: Code(s): W19.XXXA - Unspecified fall, initial encounter Status: Acute (2) Hypotension: Code(s): I95.9 - Hypotension, unspecified Status: Acute Assessment and Plan: r continue to monitor (3) UTI (urinary tract infection): Code(s): N39.0 - Urinary tract infection, site not specified Status: Acute (4) ESTEFANÍA (acute kidney injury): Code(s): N17.9 - Acute kidney failure, unspecified Status: Acute (5) Dehydration: Code(s): E86.0 - Dehydration Status: Acute (6) Hypertension: Code(s): I10 - Essential (primary) hypertension Status: Acute (7) Multiple sclerosis: Onset Date: 1997 Code(s): G35 - Multiple sclerosis Status: Acute Assessment and Plan: # hypokalemia DS: Summary Hospital Course Hospital Course: Hospital Course: 63-year-old female with history of MS, hypertension and atrial fibrillation presents the hospital with increased weakness and foul-smelling urine. Patient has left with her son for the last 3 years he states that at baseline she can walk. He states last week he felt that she was having a urinary tract infection so he called her doctor and get order for p.o. antibiotics. During her hospital stay- she worked with PT/OT but inconsistent as some days she was too weak and drowsy to do anything. There was a concern for aspiration as she was coughing a lot after eating. She had speech therapy eval., MBS MBS: IMPRESSION: Live interrogation demonstrates a possible esophageal web at the level of C6/C7 for which nonemergent follow-up is suggested. No penetration or aspiration identified- she was cleared to have diet. Education was done on sitting up right to eat, tuck her chin when swallowing. # fall # MS History of MS. Patient has had 6 falls in 6 months per sons. Most recent fall was on Monday when patient reportedly slid out of her chair. Patient is unable to remember if she hit her head or loss of consciousness with this fall. She states she thinks her legs gave out on her and does not report dizziness/lightheadedness prior to these falls. Per sons patient has not been co mplaining of dizziness/lightheadedness or palpitations. Not on anticoagulation. - Head CT: 1. No fracture or acute intracranial process. 2. Age-related changes including mild to moderate diffuse on loss and extensive white matter hypoattenuation consistent with chronic small vessel ischemic disease. - PT/OT Recommending placement # UTI Per chart review patient was having UTI symptoms 2 weeks ago for which her PCP sent her oral antibiotics. She completed the course but symptoms did not improve. Denies UTI symptoms, but was having confusion and weakness. - UA: cloudy appearance with trace ketones, 2+ bili, 1+ leukocytes, 11-20 RBC, 0-5 WBC, moderate squamous cells, no bacteria. Possible contaminant. - UC obtained on 06/10: pending - no previous micro to be reviewed - started on Rocephin on 06/09 -switched to PO augmentin - last dose 06/16 0900 completed antibiotics #HTN were holding lisinopril 5 mg daily and indapamide 2.5 mg daily due to hypotension and ESTEFANÍA BP improved -still holding lisinopril and indapamide thought monitor closely and restart if indicated will need BMP repeated within the next few days after discharge # estefanía improved cr/bun 0.99/16-back to baseline will hold lisinopril 5 mg and indapamide 2.5 mg for now monitor kidney function closely and restart if indicated # hypokalemia # hypo MG pt was going to be discharged on 06/14 but upon lab review- her potassium was 2.4 it was replaced mg was checked-low as well- replaced /- k 3.5 she will be discharged with a week of replacement for K and MG with a close f/u to repeat labs Time Spent with Patient Time attestation: Total time spent providing and/or coordinating discharge services: Exam Narrative: General: female in no acute respiratory distress who is nontoxic appearing, laying in bed HEENT: Normocephalic. Atraumatic. Extraocular movement intact. Sclera clear and anicteric. No facial asymmetry. Chest: Lungs are clear to auscultation bilaterally. No wheezes or crackles. CV: Heart was regular rate and rhythm. S1-S2. No murmurs, gallops, or rubs. Abd: Abdomen was soft. Nontender. Nondistended. Positive bowel sounds. Ext: No clubbing, cyanosis, or edema. 2+ DP pulses bilaterally. Neuro: Patient is alert and oriented x2. Strength is weak but symmetrical in both upper and lower extremities with push/pulls. No extremity drift. Speech continues to be slow but she is alert and appropriate Const: General: comfortable DS: Data Data Completed and Pending Labs on day of discharge: Labs from last 24 hours 06/16/24 06/15/24 06/15/24 07:51 23:43 06:06 WBC Pending RBC Pending Hgb Pending Hct Pending MCV Pending MCH Pending MCHC Pending RDW Pending Plt Count Pending MPV Pending Sodium 141 Potassium 3.5 Chloride 113 H Carbon Dioxide 22 Anion Gap 6 BUN 7 D Creatinine 0.71 Estim Creat Clear Calc 57 Estimated GFR > 60 Glucose 90 POC Capillary Glucose 107 H Calcium 7.7 L Magnesium 1.2 L Discharge Plan Discharge Attending physician on discharge: Dino Kelly Consulting providers: Angie Osullivan Discharging Clinician: Katherin Anthony Patient Disposition: SNF Activity: september shower Diet: as tolerated and heart healthy Patient Language: Wolof Stand Alone Forms: General Discharge Information Follow-up/Referrals: Tico Laboy MD [Primary Care Provider] - 2 Weeks Discharge Medications: New potassium chloride 20 mEq Packet 40 meq PO DAILY Qty: 7 0RF magnesium 200 mg tablet 200 mg PO DAILY Qty: 7 0RF Continued dimethyl fumarate [Tecfidera] 240 mg capsule,delayed release(DR/EC) 240 mg PO BID Qty: 180 0RF Held lisinopril 5 mg tablet 5 mg PO DAILY Qty: 90 1RF Hold Instructions: Resume on 07/03/24. hold until bmp is rechecked and instructed to restart per PCP indapamide 2.5 mg tablet 2.5 mg PO DAILY Qty: 90 1RF Hold Instructions: Resume on 06/27/24. hold until kidney function is rechecked and K remains stable Date of admission: 06/09/24 18:04 Primary Care Provider: Tico Laboy Admitting Provider: Alvaro Lara Attending physician on admission: Myranda Walsh Condition: Improved Quality VTE Prophylaxis VTE prophylaxis: mechanical ordered and pharmacologic ordered Hospitalist MIPS Heart Failure (Exclusion) Patient has history of Heart Transplant or Left Ventricular Assistive Device?: No IF YES, STOP HERE Heart Failure (Qualifier) Patient has current or prior documentation of LVEF less than or equal to 40%, or mod/servere depressed LVSF?: No IF NO, STOP HERE
[2024-06-16 09:32] LABS: Magnesium 1.8 mg/dL (1.6-2.3)
[2024-06-16] MEDS: ACETAMINOPHEN 325 MG TABLET 650 MG PO (09:55)
[2024-06-16] MEDS: AMOXICILLIN/CLAVULANATE K 875-125 MG TAB 1 TABLET PO (09:56)
[2024-06-16] MEDS: POTASSIUM CHLORIDE 20 MEQ PACKET (FOR LIQUID) 40 MEQ PO (09:57)
[2024-06-16] MEDS: DOCUSATE SODIUM 100 MG CAPSULE PO (09:57)
[2024-06-16] MEDS: ENOXAPARIN 40 MG/0.4 ML SYRINGE SUB-Q (09:58)
[2024-06-16 14:00] VITALS: BP 116/75; PULSE 81; RESP 16; TEMP 36.4; O2SAT 99
[2024-06-16 15:15] LABS: SARS-CoV-2 RNA PCR Negative (Negative)
== END 2024-06-16 16:30 | DRG 683 ==
LOC: ANHED 16:50 → ANH3MEDSUR 19:15
PROVIDERS: Internal Medicine Nephrology; Nurse Practitioner Gerontology; Student in an Organized Health Care Education/Training Program; Admitting Provider Internal Medicine; Emergency Provider Emergency Medicine; PCP Family Medicine Adolescent Medicine; Visit Provider Nurse Practitioner
DX: N17.9 Acute kidney failure, unspecified (principal); N39.0 Urinary tract infection, site not specified; I10 Essential (primary) hypertension; I95.9 Hypotension, unspecified; I48.0 Paroxysmal atrial fibrillation; E86.0 Dehydration; E87.6 Hypokalemia; G35 Multiple sclerosis; R29.6 Repeated falls; Z20.822 Contact with and (suspected) exposure to COVID-19
CPT/HCPCS: 36415; 70450; 71045; 76775; 80048; 80053; 81001; 81050; 82550; 82570; 82948; 83605; 83735; 83880; 84156; 84300; 84443; 84540; 85025; 85027; 85999; 86704; 86706; 87040; 87086; 87340; 87635; 92611; 93005; 96360; 96361; 97110; 97161; 97166; 97530; 97535; 99285; A9270; J0696; J1650; J3475; J3480; J7030; J7040; J7120

== ENCOUNTER 2024-06-29 14:45 | Inpatient (IN) | payer MEDICARE, OTHER, SELFPAY ==
[2024-06-29] VITALS (17 sets, daily range): BP systolic 120–151; BP diastolic 62–92; PULSE 109–134; RESP 15–24; TEMP 37.3–39.2; O2SAT 93–100
--- NOTE | ~2024-06-29 | XR_ITS ---
CHEST RADIOGRAPH CLINICAL HISTORY: AMS . COMPARISON: 06/12/2024 TECHNIQUE: Single portable view of the chest. Significant patient rotation towards the right side is detected rendering this examination markedly limited. FINDINGS The cardiomediastinal silhouette is unremarkable. Persistent elevation of the right hemidiaphragm with adjacent compressive atelectasis. The lungs are otherwise clear. IMPRESSION: No focal infiltrate or effusion. Reviewed, dictated and finalized at location A. ENING TECH
--- NOTE | ~2024-06-29 | CT_ITS ---
CLINICAL INDICATION: Altered mental status with sepsis COMPARISON: None. TECHNIQUE: An enhanced CT of the abdomen and pelvis was performed utilizing multislice spiral technTorrent LoadingSystems ue reconstructed at 5 mm slice thickness. Coronal and sagittal reconstructions were performed. This CT examination was performed utilizing dose reduction techniques. DLP: 605 mGy-cm FINDINGS/OBSERVATIONS: Lung: Interstitial thickening with patchy groundglass opacification detected bilaterally, findings consiste nt with pulmonary edema. HEART: The heart is of normal size, without pericardial effusion. Mediastinum: No pathologically enlarged or morphologically suspicious lymph nodes are identified within the spinal , bilateral axilla, within the soft tissues of the anterior chest wall. Soft tissues of the chest: Heterogeneous appearance of the thyroid gland, not an emergent finding. Remaining soft tissues are unremarkable. Bones of the chest: No acute compression fracture. No lytic or blastic lesions are identified. ABDOMEN: Significant levoscoliotic curvature of the thoracolumbar spine is identified markedly distorting the retroperitoneal anatomy. Liver: The liver enhances homogeneously and is not enlarged measuring 15 cm in longitudinal dimension. Gallbladder and biliary system: The gallbladder is only minimally distended, but otherwise unremarkable. Pancreas: The pancreas enhances homogeneously, without ductal dilatation. Spleen: The spleen enhances homogeneously and is not enlarged measuring 4 cm in longitudinal dimensio n. Kidneys: The bilateral kidneys enhance symmetrically without hydronephrosis or renal calculi. Adrenal glands: Unremarkable. Gastrointestinal tract: Fecal stasis distends the rectum. Multiple loops of fluid-filled small bowel are identified, with hyperemia but without santino dilatatio n. No surrounding inflammatory change is present. Appendix: The air-filled appendix is of normal caliber (axial series, images 133 through 146). Vasculature: No calcified atherosclerotic disease is present. No aneurysmal dilatation. Lymph nodes: Scattered nonpathologically enlarged lymph nodes within the root of the mesentery and deep in the pel vis. Pelvic structures: The bladder is distended and otherwise unremarkable. The uterus is anteverted and retroflexed. Body wall and musculoskeletal: Significant levoscoliotic curvature of the lower thoracic and lumbar spines without acute compression fracture but demonstrating significant degenerative disease. IMPRESSION: Findings suggesting pulmonary edema. No additional acute findings, as detailed above. Reviewed, dictated and finalized at location A. TENANCE ENGINEER
--- NOTE | ~2024-06-29 | CT_ITS ---
History: Altered mental status PROCEDURE: CT head without contrast. COMPARISON: 06/10/2024 TECHNIQUE: Axial imaging of the head performed from the skull base to the vertex without IV contrast. Sagittal a nd coronal reformations obtained. DLP: 681 mGy-cm FINDINGS: The ventricles are enlarged. The dilatation of the ventricles is proportional to the degree of sulcal prominence. Decreased attenu ation is identified within the periventricular white matter, likely secondary to microvascular ischem ic disease. There is no mass, mass effect or midline shift. There is no abnormal extra-axial fluid collection or intracranial hemorrhage. Visualized paranasal sinuses are clear. The mastoid air cells are well aerated. No acute displaced fractures within the overlying cranium. Impression: No acute intracranial hemorrhage or suspicious mass effect. Reviewed, dictated and finalized at location A. STRIAL CONTROLLER Impression: No acute intracranial hemorrhage or suspicious mass effect.
[2024-06-29] MEDS: SODIUM CHLORIDE 0.9% IV 1,000 ML 999 ML IV CONT ×2 (15:50→17:53)
[2024-06-29 15:56] LABS: Basophils Percent Auto 0.1 % (0.2-1.2); Eosinophils Absolute Auto 0.1 K/mm3 (0-0.3); Eosinophils Percent Auto 0.9 % (0-4.4); Hematocrit 28.4 % (37.0-47.0); Immature Granulocyte Absolute 0.06 K/mm3 (0.00-0.031); Immature Granulocyte Percent A 0.7 % (0-0.5); Lymphocytes Percent Auto 2.3 % (18.3-44.2); Mean Corpuscular HGB Conc 35.2 g/dl (32-36); Mean Corpuscular Volume 82.3 fl (80-100); Mean Platelet Volume 9.3 fl (7.4-10.4); Monocytes Absolute Auto 0.5 K/mm3 (0.1-0.6); Monocytes Percent Auto 5.2 % (2.6-8.5); Neutrophils Absolute Auto 8.1 K/mm3 (1.3-6.7); Neutrophils Percent Auto 90.8 % (45.5-73.1); Platelet Count Result 289 k/mm3 (150-375); Red Blood Count 3.45 M/mm3 (4.2-5.4); Red Cell Distribution Width 17.6 % (11.5-14.5); White Blood Count 8.9 K/mm3 (4.5-10.0)
--- NOTE | 2024-06-29 16:03 | ED_ITS ---
HPI - Altered Mental Status General Chief Complaint: Altered Mental Status <Yaw Matt MD - Last Filed: 06/29/24 19:26> Stated Complaint: ams <Yaw Matt MD - Last Filed: 06/29/24 19:26> Time Seen by Provider: 06/29/24 15:07 <Yaw Matt MD - Last Filed: 06/29/24 19:26> History of Present Illness HPI narrative: Patient is a 63-year-old female who presents ER from her care facility with altered mental status. Earlier in the week son felt patient may be developing a UTI and they sent a sample but got lost. Patient with elevated temperature today. She is typically orient x3 was currently orient times 1-2. She is chronically debilitated from MS. Reports when she gets sick she leans her side tends towards her right. No history of seizure. No history of trauma. <Yaw Matt MD - Last Filed: 06/29/24 19:26> Related Data Allergies/Adverse Reactions: Allergies Allergy/AdvReac Type Severity Reaction Status Date / Time Seasonal Allergies Allergy Mild itchiness Uncoded 03/11/24 13:18 <Yaw Matt MD - Last Filed: 06/29/24 19:26> Review of Systems 2 Review of Systems: ROS unobtainable: Yes unobtainable due to medical condition <Yaw Matt MD - Last Filed: 06/29/24 19:26> [facility] Past Medical History Medical History: Medical History History of ectopic Paroxysmal atrial fibrillation Multiple sclerosis (1997) Hypertension Cellulitis <Yaw Matt MD - Last Filed: 06/29/24 19:26> Family History Family History: Family History Father Cerebrovascular accident Hypertension CAD (coronary artery disease) <Yaw Matt MD - Last Filed: 06/29/24 19:26> Social History Social History: Social History Smoking status: Never smoker Second hand tobacco smoke exposure: No Alcohol intake: never Substance use: never Substance use type: does not use Do You Feel Safe in your Home?: Yes Lack of Transportation: No Lack of Food: Never True Current Housing: I Have Housing Concerned About Future Housing: No Difficulty Paying Gas/Electric Bills: No Difficulty Paying for Meds: No Currently Unemployed: No Education: Associate Degree Difficulty w/ Childcare or Family Care: No Spiritual care concerns: No <Yaw Matt MD - Last Filed: 06/29/24 19:26> Exam 2 Narrative: GENERAL: Chronically ill-appearing, well-nourished, and in no acute distress. HEAD: Normocephalic, atraumatic. EYES: PERRL and EOMI. ENT: Mucous membranes moist. CHEST: Clear to auscultation. No respiratory distress. HEART: Tachycardic and regular. Normal peripheral pulses. ABDOMEN: Soft, nontender, nondistended. EXTREMITIES: Normal range of motion. No edema. SKIN: Warm, dry, no rash. NEURO: Alert and oriented x1. <Yaw Matt MD - Last Filed: 06/29/24 19:26> GENERAL: Chronically ill-appearing, well-nourished, and in no acute distress. HEAD: Normocephalic, atraumatic. EYES: PERRL and EOMI. ENT: Mucous membranes moist. CHEST: Clear to auscultation. No respiratory distress. HEART: Tachycardic and regular. Normal peripheral pulses. ABDOMEN: Soft, nontender, nondistended. EXTREMITIES: Normal range of motion. No edema. SKIN: Warm, dry, no rash. Stage I sacral decubitus ulcer NEURO: Alert and oriented x1. <Keyon Barron MD - Last Filed: 06/29/24 23:38> Course Course Emergency Course: Heart rate improving with IV fluid. No identifying causes yet found for patient's altered mental status. Will add on procalcitonin and CT chest/abdomen/pelvis. NANCY to Dr. Barron. <Yaw Matt MD - Last Filed: 06/29/24 19:26> Heart rate improving with IV fluid. No identifying causes yet found for patient's altered mental status. Will add on procalcitonin and CT chest/abdomen/pelvis. NANCY to Dr. Barron. Anderson [id number]: Patient signed out completion of the workup. On exam patient is hot to touch. Rectal temperature obtained which was 102.5. She has several small vesicles over her mons pubis. No oral or genital ulcers. Appear to be slightly right of midline. DDX including shingles, folliculitis, HSV. CT chest abdomen pelvis ordered for sepsis of unknown etiology. No causative findings. They noted possible pulmonary edema although the patient does appear fluid overloaded my exam and has no respiratory complaints. No echocardiogram in our system. Blood cultures pending. No meningismus/neck pain although viral meningitis is a possibility. Patient started on cefepime, vancomycin and acyclovir. Case was discussed with Dr. Goldstein. Given possible viral cause of her fever we discussed an LP. I attempted an LP, however was unsuccessful as the patient has very difficult anatomy. If her condition does no improve IR can be c/s for LP. She will be admitted the IMU for further management sepsis of unknown etiology. <Keyon Barron MD - Last Filed: 06/29/24 23:38> Vital Signs Vital signs: Vital Signs Temperature 99.2 F 06/29/24 14:51 Pulse Rate 133 H 06/29/24 14:51 Respiratory Rate 24 H 06/29/24 14:51 Pulse Oximetry 100 06/29/24 14:51 Oxygen Delivery Room Air 06/29/24 14:51 Temperature 102.5 F H 06/29/24 20:35 Pulse Rate 127 H 06/29/24 22:30 Respiratory Rate 19 06/29/24 22:30 Blood Pressure 127/82 06/29/24 22:30 Pulse Oximetry 93 06/29/24 22:30 Oxygen Delivery Room Air 06/29/24 15:03 <Yaw Matt MD - Last Filed: 06/29/24 19:26> Vital Signs Temperature 99.2 F 06/29/24 14:51 Pulse Rate 133 H 06/29/24 14:51 Respiratory Rate 24 H 06/29/24 14:51 Pulse Oximetry 100 06/29/24 14:51 Oxygen Delivery Room Air 06/29/24 14:51 Temperature 102.5 F H 06/29/24 20:35 Pulse Rate 127 H 06/29/24 22:30 Respiratory Rate 19 06/29/24 22:30 Blood Pressure 127/82 06/29/24 22:30 Pulse Oximetry 93 06/29/24 22:30 Oxygen Delivery Room Air 06/29/24 15:03 <Keyon Barron MD - Last Filed: 06/29/24 23:38> Procedures Lumbar Puncture Lumbar Puncture #1: Lumbar Puncture Date: 06/29/24 <Keyon Barron MD - Last Filed: 06/29/24 23:38> Time Out Performed: Yes <Keyon Barron MD - Last Filed: 06/29/24 23:38> Patient Position: right lateral decubitus <Keyon Barron MD - Last Filed: 06/29/24 23:38> Skin Prep: Povidone-Iodine 1%, Sterile Prep/Drape and Asepetic Technique < Keyon Barron MD - Last Filed: 06/29/24 23:38> Anesthetic: lidocaine 1% and with epi <Keyon Barron MD - Last Filed: 06/29/24 23:38> Amount of anesthesia used (mL): 3 <Keyon Barron MD - Last Filed: 06/29/24 23:38> Spinal Needle Gauge: 22G <Keyon Barron MD - Last Filed: 06/29/24 23:38> Interspace Used: L3-L4 <Keyon Barron MD - Last Filed: 06/29/24 23:38> Additional Comments: Unsuccessful. Very difficulty anatomy. <Keyon Barron MD - Last Filed: 06/29/24 23:38> MDM - Altered Mental Status Lab Data Result diagrams: 06/29/24 15:48 06/29/24 15:48 <Yaw Matt MD - Last Filed: 06/29/24 19:26> Labs: Lab Results 06/29/24 06/29/24 Range/Units 15:48 17:17 WBC 8.9 (4.5-10.0) K/mm3 RBC 3.45 L (4.2-5.4) M/mm3 Hgb 10.0 L (12.0-15.0) g/dL Hct 28.4 L (37.0-47.0) % MCV 82.3 (80-100) fl MCH 29.0 (26-34) pg MCHC 35.2 (32-36) g/dl RDW 17.6 H (11.5-14.5) % Plt Count 289 (150-375) k/mm3 MPV 9.3 (7.4-10.4) fl Immature Gran % (Auto) 0.7 H (0-0.5) % Neut % (Auto) 90.8 H (45.5-73.1) % Lymph % (Auto) 2.3 L (18.3-44.2) % [place] % (Auto) 5.2 (2.6-8.5) % Eos % (Auto) 0.9 (0-4.4) % Baso % (Auto) 0.1 L (0.2-1.2) % Lymph # (Auto) 0.20 L (0.9-3.2) K/mm3 [place] # (Auto) 0.5 (0.1-0.6) K/mm3 Eos # (Auto) 0.1 (0-0.3) K/mm3 Baso # (Auto) 0.0 (0.0-0.1) K/mm3 Abs Immat Gran (auto) 0.06 H (0.00-0.031) K/mm3 Absolute Neuts (auto) 8.1 H (1.3-6.7) K/mm3 Absolute Nucleated RBC 0.000 (0.0-0.012) K/mm3 Nucleated RBC % 0.0 (0.0-0.2) % Platelet Estimate Adequate (Adequate) Hypochromasia 2+ Anisocytosis 1+ Target Cells 2+ Schistocytes None seen Sodium 145 (137-145) mmol/L Potassium 3.8 (3.4-5.0) mmol/L Chloride 110 H (98-107) mmol/L Carbon Dioxide 25 (22-30) mmol/L Anion Gap 10 (4-12) mmol/L BUN 14 D (7-17) mg/dL Creatinine 0.78 (0.7-1.0) mg/dL Estim Creat Clear Calc 45 ml/min Estimated GFR > 60 (59 - ) Glucose 106 (65-110) mg/dL Lactic Acid 1.7 (0.7-2.0) mmol/L Calcium 9.2 (8.4-10.2) mg/dL Total Bilirubin 0.5 (0.2-1.3) mg/dL AST 33 (14-36) U/L ALT 32 (6-35) U/L Alkaline Phosphatase 57 (38-126) U/L Total Protein 8.0 (6.3-8.2) g/dL Albumin 3.5 (3.5-5.1) g/dL Procalcitonin 0.2 ng/mL Urine Color Yellow (Yellow) Urine Appearance Clear (Clear) Urine pH 8.0 (5.0-9.0) Ur Specific [place] 1.016 (1.001-1.035) Urine Protein Trace (Negative) mg/dL Urine Glucose (UA) Negative (Negative) mg/dL Urine Ketones Negative (Negative) mg/dL Ur Blood (Man) Trace (Negative) Urine Nitrate Negative (Negative) Urine Bilirubin Negative (Negative) Urine Urobilinogen 1.0 (<2.0) mg/dL Leukocyte Esterase Rfl Negative (Negative) CHAI/UL Urine RBC 6-10 H (0-2) /hpf Urine WBC 0-5 (0-3) /hpf Ur Squamous Epith Cells None seen (Few) /hpf Urine Bacteria None seen /hpf Urine Casts 0-2 Influenza A (RT-PCR) Negative (Negative) Influenza B (RT-PCR) Negative (Negative) RSV (RT-PCR) Negative (Negative) SARS-CoV-2 RNA (RT-PCR) Negative (Negative) <Yaw Matt MD - Last Filed: 06/29/24 19:26> Lab Results 06/29/24 06/29/24 Range/Units 15:48 17:17 WBC 8.9 (4.5-10.0) K/mm3 RBC 3.45 L (4.2-5.4) M/mm3 Hgb 10.0 L (12.0-15.0) g/dL Hct 28.4 L (37.0-47.0) % MCV 82.3 (80-100) fl MCH 29.0 (26-34) pg MCHC 35.2 (32-36) g/dl RDW 17.6 H (11.5-14.5) % Plt Count 289 (150-375) k/mm3 MPV 9.3 (7.4-10.4) fl Immature Gran % (Auto) 0.7 H (0-0.5) % Neut % (Auto) 90.8 H (45.5-73.1) % Lymph % (Auto) 2.3 L (18.3-44.2) % [place] % (Auto) 5.2 (2.6-8.5) % Eos % (Auto) 0.9 (0-4.4) % Baso % (Auto) 0.1 L (0.2-1.2) % Lymph # (Auto) 0.20 L (0.9-3.2) K/mm3 [place] # (Auto) 0.5 (0.1-0.6) K/mm3 Eos # (Auto) 0.1 (0-0.3) K/mm3 Baso # (Auto) 0.0 (0.0-0.1) K/mm3 Abs Immat Gran (auto) 0.06 H (0.00-0.031) K/mm3 Absolute Neuts (auto) 8.1 H (1.3-6.7) K/mm3 Absolute Nucleated RBC 0.000 (0.0-0.012) K/mm3 Nucleated RBC % 0.0 (0.0-0.2) % Platelet Estimate Adequate (Adequate) Hypochromasia 2+ Anisocytosis 1+ Target Cells 2+ Schistocytes None seen Sodium 145 (137-145) mmol/L Potassium 3.8 (3.4-5.0) mmol/L Chloride 110 H (98-107) mmol/L Carbon Dioxide 25 (22-30) mmol/L Anion Gap 10 (4-12) mmol/L BUN 14 D (7-17) mg/dL Creatinine 0.78 (0.7-1.0) mg/dL Estim Creat Clear Calc 45 ml/min Estimated GFR > 60 (59 - ) Glucose 106 (65-110) mg/dL Lactic Acid 1.7 (0.7-2.0) mmol/L Calcium 9.2 (8.4-10.2) mg/dL Total Bilirubin 0.5 (0.2-1.3) mg/dL AST 33 (14-36) U/L ALT 32 (6-35) U/L Alkaline Phosphatase 57 (38-126) U/L Total Protein 8.0 (6.3-8.2) g/dL Albumin 3.5 (3.5-5.1) g/dL Procalcitonin 0.2 ng/mL Urine Color Yellow (Yellow) Urine Appearance Clear (Clear) Urine pH 8.0 (5.0-9.0) Ur Specific [place] 1.016 (1.001-1.035) Urine Protein Trace (Negative) mg/dL Urine Glucose (UA) Negative (Negative) mg/dL Urine Ketones Negative (Negative) mg/dL Ur Blood (Man) Trace (Negative) Urine Nitrate Negative (Negative) Urine Bilirubin Negative (Negative) Urine Urobilinogen 1.0 (<2.0) mg/dL Leukocyte Esterase Rfl Negative (Negative) CHAI/UL Urine RBC 6-10 H (0-2) /hpf Urine WBC 0-5 (0-3) /hpf Ur Squamous Epith Cells None seen (Few) /hpf Urine Bacteria None seen /hpf Urine Casts 0-2 Influenza A (RT-PCR) Negative (Negative) Influenza B (RT-PCR) Negative (Negative) RSV (RT-PCR) Negative (Negative) SARS-CoV-2 RNA (RT-PCR) Negative (Negative) <Keyon Barron MD - Last Filed: 06/29/24 23:38> Imaging Data Radiologist's impression: ITS Impressions Chest X-Ray 06/29/24 18:09 IMPRESSION: No focal infiltrate or effusion. Head CT 06/29/24 18:28 Impression: No acute intracranial hemorrhage or suspicious mass effect. <Yaw Matt MD - Last Filed: 06/29/24 19:26> ECG Data EKG #1: ECG completion date: 06/29/24 <Yaw Matt MD - Last Filed: 06/29/24 19:26> ECG completion time: 18:40 <Yaw Matt MD - Last Filed: 06/29/24 19:26> EKG Interpretation: tachycardia (122), sinus rhythm, non-specific ST changes, normal QRS, normal QT and left axis <Yaw Matt MD - Last Filed: 06/29/24 19:26> Critical Care Time Critical Care Time Critical Care Time: Yes <Keyon Barron MD - Last Filed: 06/29/24 23:38> Total Critical Care Time: 45 <Keyon Barron MD - Last Filed: 06/29/24 23:38> Discharge Plan Discharge Clinical Impression: Acute alteration in mental status, Sepsis, Fever <Yaw Matt MD - Last Filed: 06/29/24 19:26> Patient Language: Slovenian <Yaw Matt MD - Last Filed: 06/29/24 19:26> Prescriptions: No Action potassium chloride 20 mEq Packet 40 meq PO DAILY Qty: 7 0RF magnesium 200 mg tablet 200 mg PO DAILY Qty: 7 0RF lisinopril 5 mg tablet 5 mg PO DAILY Qty: 90 1RF indapamide 2.5 mg tablet 2.5 mg PO DAILY Qty: 90 1RF dimethyl fumarate [Tecfidera] 240 mg capsule,delayed release(DR/EC) 240 mg PO BID Qty: 180 0RF <Yaw Matt MD - Last Filed: 06/29/24 19:26> Follow-up/Referrals: Tico Laboy MD [Primary Care Provider] - <Yaw Matt MD - Last Filed: 06/29/24 19:26>
[2024-06-29 16:06] LABS: Alanine Aminotransferase 32 U/L (6-35); Albumin Level 3.5 g/dL (3.5-5.1); Alkaline Phosphatase 57 U/L (38-126); Anion Gap 10 mmol/L (4-12); Aspartate Amino Transferase 33 U/L (14-36); Bilirubin,Total 0.5 mg/dL (0.2-1.3); Blood Urea Nitrogen 14 mg/dL (7-17); Calcium 9.2 mg/dL (8.4-10.2); Carbon Dioxide 25 mmol/L (22-30); Chloride 110 mmol/L (98-107); Estimated CRCL calculation 45 ml/min; Estimated Glomerular Filt Rate > 60; Glucose 106 mg/dL (65-110); Lactic Acid Reflex 1.7 mmol/L (0.7-2.0); Potassium 3.8 mmol/L (3.4-5.0); Sodium 145 mmol/L (137-145)
[2024-06-29 16:22] LABS: Platelet Estimate Adequate (Adequate)
[2024-06-29 16:23] LABS: Target Cells 2+
[2024-06-29 16:24] LABS: Anisocytosis 1+; Hypochromasia 2+
[2024-06-29 16:25] LABS: Schistocytes None Seen
[2024-06-29 16:32] LABS: Influenza A QL RT-PCR Negative (Negative); Influenza B QL RT-PCR Negative (Negative); RSV RNA, RT-PCR Negative (Negative); SARS-CoV-2 RNA PCR Negative (Negative)
[2024-06-29 17:28] LABS: Add Urine Microscopic? YES; Appearance Urine Clear (Clear); Bacteria Urine None Seen /hpf; Bilirubin Urine Negative (Negative); Blood Urine Trace (Negative); Color Urine Yellow (Yellow); Glucose Urine UA Negative (Negative); Ketones Urine Negative (Negative); Leukocyte Esterase Ur Negative LEU/UL (Negative); Nitrate Urine Negative (Negative); Non Pathogenic Casts 0-2; Protein Urine Trace mg/dL (Negative); Specific Grav Ur 1.016 (1.001-1.035); Squamous Epithelial Cell Urine None Seen /hpf (Few); WBC Urine 0-5 /hpf (0-3)
--- NOTE | 2024-06-29 17:44 | ECG_ITS ---
Test Date: 2024-06-29 18:40:13 Measurements Intervals [place] Rate: 122 P: 48 CA: 132 QRS: -26 QRSD: 71 T: 22 QT: 291 QTc: 415 Interpretive Statements SINUS TACHYCARDIA BASELINE ARTIFACT- I, II, III, AVR, AVL, AVF, V1-V2 ABNORMAL ECG Compared to ECG 06/09/2024 17:08:00 Sinus rhythm no longer present HEART RATE HAS INCREASED POSSIBLE ISCHEMIA NO LONGER PRESENT Electronically Signed On 06-30-2024 08:06:49 [employer]ABIC PROFESSOR by Huber Brunson D.O.
--- NOTE | 2024-06-29 18:42 | PC.NURSE ---
[facility] updated on patient status
[2024-06-29 20:13] LABS: Procalcitonin 0.2 ng/mL
[2024-06-29] MEDS: CEFEPIME 2 GM/NS 50 ML 2 GM/50 ML BAG IVPB (20:25)
[2024-06-29] MEDS: LACTATED RINGERS 1,000 ML 150 ML IV CONT (20:56)
[2024-06-29] MEDS: ACYCLOVIR SODIUM IVPB (22:05)
[2024-06-29] MEDS: DEXTROSE 5% IVPB (22:05)
[2024-06-29] MEDS: WATER IVPB (22:05)
[2024-06-29] MEDS: MIDAZOLAM HCL (*CRX) 2 MG/2 ML VIAL IV PUSH (22:51)
--- NOTE | 2024-06-29 23:16 | PC.NURSE ---
Lumbar Puncture unsuccessful -son aware.
[2024-06-29] MEDS: ACETAMINOPHEN 500 MG TABLET 1000 MG PO (23:32)
[2024-06-29] MEDS: VANCOMYCIN 1,500 MG/NS 500 ML 1,500 MG/500 ML BAG 250 MG IVPB (23:33)
--- NOTE | 2024-06-29 23:43 | PC.NURSE ---
Report received from NATALY Hughes. Assumed care of patient at this time. Son remains at bedside.
--- NOTE | 2024-06-29 23:54 | PM.IMHP ---
H&P: HPI History of Present Illness Date/Time: 06/29/24 23:54 Chief Complaint: Not acting like herself Narrative: 63-year-old female with a past medical history of multiple scleroses who presented to the ER from [facility] via EMS due to change in mental status. The patient's son, Olivier, provides all the history due to the patient's mental status. He the patient was recently hospitalized for persistent urinary symptoms bite 2 despite outpatient antibiotics. Her urine culture at that time was negative but she did complete a 2nd course of antibiotics with Augmentin. She was discharged to [facility] for rehab. Her son reports that she was actually supposed be discharged this coming week to return home. Noticed that a will week ago she developed darker urine and smelled more strongly of urine. They [facility] the [facility] which was contaminated with squamous cells. Patient a 2nd sample but the sample got lost. Her urine sample in the ER today was not indicative of infection. Otherwise the patient's son reports that she has been tolerating therapy. However around noon [facility] staff noticed that she was slumping over and was not as responsive. Patient's son reports that the patient frequently does lean to the right side whenever she gets sick. She also had an elevated temperature at the [facility]. When she arrived to the ER she is alert orient x1, was leaning towards the right and looking somewhat to the right but was following commands. Shortly after arriving to the ER she spiked a rectal temperature to 102.5 and was tachycardic heart rate in the 130s. Patient's son denies the patient having any recent cough. She has not had any reported nausea vomiting or changes in bowel habits. She has chronic urinary incontinence. Initially content source of infection was unknown. Although on further physical exam patient was noted have small pustules with mild underlying erythema of the mons pubis. Blood cultures show were obtained in the patient was started on empiric antibiotic therapy and admitted for further evaluation. Patient did not have any recent falls, trauma, or known ill contacts. Viral PCRs were negative. Review of Systems Review of Systems: ROS unobtainable: Yes unobtainable due to mental status PMFSH Past Medical History Medical History (Updated 06/30/24 @ 00:17 by Kisha Goldstein DO) Venous insufficiency of lower extremity Scoliosis History of ectopic Paroxysmal atrial fibrillation Multiple sclerosis (1997) Hypertension Cellulitis Of the left lower extreme Surgical History Surgical History (Updated 06/30/24 @ 00:06 by Kisha Goldstein DO) History of 2 sections Family History Family History Father Cerebrovascular accident Hypertension CAD (coronary artery disease) Social History Social History (Updated 06/30/24 @ 05:33 by Kisha Goldstein DO) Social History: The patient is lives with her son for the last 3 years until her recent hospitalization in May at which time she was discharged to [facility] for rehab. She raised 2 sons. She is currently living with her oldest son. At baseline the patient can report the walk. Code status: Full code Surrogate decision maker: Olivier Gonzalez (son) Smoking status: Never smoker Second hand tobacco smoke exposure: No Alcohol intake: never Substance use: never Substance use type: does not use Do You Feel Safe in your Home?: Yes Lack of Transportation: No Lack of Food: Never True Current Housing: I Have Housing Concerned About Future Housing: No Difficulty Paying Gas/Electric Bills: No Difficulty Paying for Meds: No Currently Unemployed: No Education: Associate Degree Difficulty w/ Childcare or Family Care: No Spiritual care concerns: No Meds Home Medications and Allergies Home Medications ?Medication ?Instructions ?Recorded ?Confirmed ?Type lisinopril 5 mg tablet 5 mg PO DAILY #90 tabs 10/27/23 06/09/24 Rx dimethyl fumarate 240 mg 240 mg PO BID #180 caps 05/13/24 06/30/24 Rx capsule,delayed release (Tecfidera) indapamide 2.5 mg tablet 2.5 mg PO DAILY #90 tabs 05/13/24 06/09/24 Rx magnesium 200 mg tablet 200 mg PO DAILY #7 tabs 06/16/24 06/30/24 Rx potassium chloride 20 mEq oral 40 meq PO DAILY #7 ea 06/16/24 06/30/24 Rx packet Allergies Allergy/AdvReac Type Severity Reaction Status Date / Time Seasonal Allergies Allergy Mild itchiness Uncoded 06/30/24 05:11 Vital Signs Vital Signs - 24 hr 06/29/24 14:51 06/29/24 15:00 06/29/24 15:03 Temperature 99.2 F Pulse Rate 133 H 132 H Respiratory Rate 24 H Blood Pressure Pulse Oximetry 100 Oxygen Delivery Room Air Room Air 06/29/24 15:30 06/29/24 16:00 06/29/24 16:30 Temperature Pulse Rate 134 H 133 H 131 H Respiratory Rate 22 H 21 H 22 H Blood Pressure 143/92 H 146/62 H 151/90 H Pulse Oximetry 100 98 99 Oxygen Delivery 06/29/24 17:00 06/29/24 17:30 06/29/24 18:58 Temperature Pulse Rate 129 H 129 H 119 H Respiratory Rate 20 21 H 20 Blood Pressure 145/85 H 138/83 138/83 Pulse Oximetry 96 95 95 Oxygen Delivery 06/29/24 20:00 06/29/24 20:35 06/29/24 21:00 Temperature 102.5 F H Pulse Rate 121 H 121 H Respiratory Rate 23 H 22 H Blood Pressure 137/78 136/85 Pulse Oximetry 96 99 Oxygen Delivery 06/29/24 21:45 06/29/24 22:30 Temperature Pulse Rate 122 H 127 H Respiratory Rate 22 H 19 Blood Pressure 138/84 127/82 Pulse Oximetry 96 93 Oxygen Delivery Exam Narrative: Weight 55 kg BMI 23.7 Const: Other: Chronically ill-appearing, debilitated, well-nourished HENMT: Other: Head is normocephalic atraumatic, mucous membranes are dry, no oral pharyngeal erythema, fair dentition Eyes: Other: Pupils are equal and reactive, mild nystagmus but conjugated gaze Neck: Other: No JVD, no lymphadenopathy, trachea midline Resp: Other: Clear to auscultation bilaterally, no increased work of breathing Cardio: Other: Sinus tachycardia, 2+ bilateral radial pedal pulses, no JVD, no murmur GI: Other: Soft, nontender, nondistended, positive bowel sounds, scar extending from the umbilicus down to the pubis : Other: Pure wick catheter in place, patient has a grouping of about 10 purulent appearing blisters overlying the mons pubis with some mild associated erythema, patient has had about 500 mL out pure wick catheter, urine is dark but clear Skin: Other: Generally warm to touch, non jaundice, mild pallor, 3-4 second cap refill, no mottling Neuro: Other: Patient is alert to self, she follow simple commands, she will intermittently answer questions but responses are not always appropriate, she has nystagmus of the eyes which I suspect is chronic not unusual for history of MS, no fasciculations of the tongue, tongue is midline Extrem: Other: No clubbing, cyanosis or edema Psych: Other: Pleasantly confused, cooperative H&P: Results Labs Labs: Laboratory Tests 06/29/24 15:48 06/29/24 15:48 06/29/24 06/29/24 15:48 17:17 WBC 8.9 RBC 3.45 L Hgb 10.0 L Hct 28.4 L MCV 82.3 MCH 29.0 MCHC 35.2 RDW 17.6 H Plt Count 289 MPV 9.3 Immature Gran % (Auto) 0.7 H Neut % (Auto) 90.8 H Lymph % (Auto) 2.3 L Faulk % (Auto) 5.2 Eos % (Auto) 0.9 Baso % (Auto) 0.1 L Lymph # (Auto) 0.20 L Faulk # (Auto) 0.5 Eos # (Auto) 0.1 Baso # (Auto) 0.0 Abs Immat Gran (auto) 0.06 H Absolute Neuts (auto) 8.1 H Absolute Nucleated RBC 0.000 Nucleated RBC % 0.0 Platelet Estimate Adequate Hypochromasia 2+ Anisocytosis 1+ Target Cells 2+ Schistocytes None seen Sodium 145 Potassium 3.8 Chloride 110 H Carbon Dioxide 25 Anion Gap 10 BUN 14 D Creatinine 0.78 Estim Creat Clear Calc 45 Estimated GFR > 60 Glucose 106 Lactic Acid 1.7 Calcium 9.2 Total Bilirubin 0.5 AST 33 ALT 32 Alkaline Phosphatase 57 Total Protein 8.0 Albumin 3.5 Procalcitonin 0.2 Urine Color Yellow Urine Appearance Clear Urine pH 8.0 Ur Specific [place] 1.016 Urine Protein Trace Urine Glucose (UA) Negative Urine Ketones Negative Ur Blood (Man) Trace Urine Nitrate Negative Urine Bilirubin Negative Urine Urobilinogen 1.0 Leukocyte Esterase Rfl Negative Urine RBC 6-10 H Urine WBC 0-5 Ur Squamous Epith Cells None seen Urine Bacteria None seen Urine Casts 0-2 Influenza A (RT-PCR) Negative Influenza B (RT-PCR) Negative RSV (RT-PCR) Negative SARS-CoV-2 RNA (RT-PCR) Negative Impressions Chest X-Ray 06/29/24 18:09 IMPRESSION: No focal infiltrate or effusion. Head CT 06/29/24 18:28 Impression: No acute intracranial hemorrhage or suspicious mass effect. Chest/Abdomen/Pelvis CT 06/29/24 20:48 IMPRESSION: Findings suggesting pulmonary edema. No additional acute findings, as detailed above. EKG: Sinus tachycardia, left axis deviation he rate 122 QTC 415 Assessment and Plan Assessment and plan (1) Sepsis: Qualifiers: Sepsis acute organ dysfunction status: without acute organ dysfunction Sepsis type: sepsis due to unspecified organism Qualified Code(s): A41.9 - Sepsis, unspecified organism Code(s): A41.9 - Sepsis, unspecified organism Status: Acute (2) Multiple sclerosis: Onset Date: 1997 Code(s): G35 - Multiple sclerosis Status: Acute (3) Acute alteration in mental status: Code(s): R41.82 - Altered mental status, unspecified Status: Acute (4) Acute metabolic encephalopathy: Code(s): G93.41 - Metabolic encephalopathy Status: Acute Plan Patient cardia fever in the setting of suspected cellulitis/folliculitis versus cutaneous mons pubis. The patient has been started on empiric antibiotic therapy with cefepime vancomycin and acyclovir. Patient received 30 mL/kilogram fluid bolus. Tachycardia improved with fluid bolus. Will continue maintenance fluids. Blood cultures have been obtained and are pending. Will repeat CBC and electrolyte panel in a.m.. The patient is altered which is suspected to be metabolic encephalopathy from acute infection. Meningitis a encephalitis less likely. ER provider attempted LP but was unsuccessful due to anatomy/bone spurs. Given purulence appearance to the area of mons pubis with underlying erythema folliculitis/cellulitis most likely source of infection. MEDICAL DECISION MAKING NARRATIVE -Spoke with the ED provider in detail regarding patient's evaluation, workup and management -Patient seen and examined at bedside -Collaborated with patient's nurse at the bedside in detail and addressed all concerns -Labs, electrolytes, radiology, investigations and test results reviewed -ED/Consult/Nursing/Ancilliary notes on the chart reviewed and appreciated -Spoke with patient's son at the bedside and answered all the questions that he voiced Quality VTE Prophylaxis VTE prophylaxis: pharmacologic ordered (Lovenox 40 mg subQ daily.) Hospitalist MIPS Advance Care Plan I have confirmed that the patient's Advanced Care Plan is present, code status is documented, or surrogate decision maker is listed in patient medical record.: Yes Medication Reconciliation I have utilized all available resources to obtain, update and review the patients current medications (includes all prescriptions, OTC, herbals, cannabis, and nutritional supplements).: Yes
[2024-06-30] VITALS (31 sets, daily range): BP systolic 107–148; BP diastolic 66–90; PULSE 79–118; RESP 12–28; TEMP 36.6–38.2; O2SAT 91–99; BMI 22.2
--- NOTE | 2024-06-30 02:31 | PC.NURSE ---
Called [facility] to obtain a medication list for patient. Per [facility] they will fax over a list.
--- NOTE | 2024-06-30 04:14 | PC.NURSE ---
Patients son Olivier called at [phone] and [phone] and informed him that patient had got room number of 205-1.
--- NOTE | 2024-06-30 05:06 | ADMGEN ---
This patient, Jolene Gonzalez, was admitted to IMU Room 205-01 at 0505. Due to patient's altered mental status and no family present, RN was unable to discuss orientation to hospital policies and general routines including ID bracelet, bed and alarms, visiting hours, pain management, procedures, bathroom and other care routines, personal items, smoking policy, room service/diet, and visiting hours.
[2024-06-30 08:46] LABS: Basophils Percent Auto 0.5 % (0.2-1.2); Eosinophils Absolute Auto 0.1 K/mm3 (0-0.3); Eosinophils Percent Auto 0.8 % (0-4.4); Hematocrit 24.5 % (37.0-47.0); Hemoglobin 8.6 g/dL (12.0-15.0); Immature Granulocyte Absolute 0.04 K/mm3 (0.00-0.031); Immature Granulocyte Percent A 0.6 % (0-0.5); Lymphocytes Percent Auto 11.1 % (18.3-44.2); Mean Corpuscular HGB Conc 35.1 g/dl (32-36); Mean Corpuscular Hemoglobin 29.4 pg (26-34); Mean Corpuscular Volume 83.6 fl (80-100); Mean Platelet Volume 9.3 fl (7.4-10.4); Monocytes Absolute Auto 0.9 K/mm3 (0.1-0.6); Monocytes Percent Auto 13.4 % (2.6-8.5); Neutrophils Absolute Auto 4.7 K/mm3 (1.3-6.7); Neutrophils Percent Auto 73.6 % (45.5-73.1); Platelet Count Result 199 k/mm3 (150-375); Red Blood Count 2.93 M/mm3 (4.2-5.4); Red Cell Distribution Width 17.9 % (11.5-14.5); White Blood Count 6.3 K/mm3 (4.5-10.0)
[2024-06-30 09:04] LABS: Anion Gap 7 mmol/L (4-12); Blood Urea Nitrogen 13 mg/dL (7-17); Calcium 8.2 mg/dL (8.4-10.2); Carbon Dioxide 20 mmol/L (22-30); Chloride 112 mmol/L (98-107); Estimated CRCL calculation 53 ml/min; Estimated Glomerular Filt Rate > 60; Glucose 86 mg/dL (65-110); Potassium 3.7 mmol/L (3.4-5.0); Sodium 139 mmol/L (137-145)
[2024-06-30] MEDS: CEFEPIME 2 GM/NS 50 ML 2 GM/50 ML BAG IVPB ×2 (09:28→22:10)
[2024-06-30] MEDS: ENOXAPARIN 40 MG/0.4 ML SYRINGE SUB-Q (09:34)
[2024-06-30] MEDS: MAGNESIUM OXIDE 200 MG TABLET PO (09:34)
[2024-06-30] MEDS: POTASSIUM CHLORIDE 20 MEQ PACKET (FOR LIQUID) 40 MEQ PO (09:34)
[2024-06-30] MEDS: WATER IVPB ×2 (10:06→23:53)
[2024-06-30] MEDS: ACYCLOVIR SODIUM IVPB ×2 (10:06→23:53)
[2024-06-30] MEDS: DEXTROSE 5% IVPB ×2 (10:06→23:53)
--- NOTE | 2024-06-30 11:22 | PM.IMPN ---
Progress Note: A&P Assessment and Plan (1) Acute metabolic encephalopathy: Code(s): G93.41 - Metabolic encephalopathy Status: Acute Assessment and Plan: - monitor closely - empiric antibiotic therapy with cefepime vancomycin and acyclovir. - Patient received 30 mL/kilogram fluid bolus. Will continue maintenance fluids. - Blood cultures have been obtained and are pending. - daily CBC and electrolyte panel (2) Sepsis: Qualifiers: Sepsis acute organ dysfunction status: without acute organ dysfunction Sepsis type: sepsis due to unspecified organism Qualified Code(s): A41.9 - Sepsis, unspecified organism Code(s): A41.9 - Sepsis, unspecified organism Status: Acute Assessment and Plan: #-- setting of suspected cellulitis/folliculitis versus cutaneous mons pubis. --UA noted no acute --> empiric antibiotic therapy with cefepime vancomycin and acyclovir. --> received 30 mL/kilogram fluid bolus. -continue maintenance fluids. -->LP attempted however failed due to scoliosis -->Blood cultures have been obtained and are pending. --> CT head/chest/ABD/Pelvis negative for infectious process. -->daily CBC and electrolyte panel in a.m. --> large liquid stool today, stool culture/WBC/Cdiff sent. --- stool Hemacult test pending. (3) Fever: Code(s): R50.9 - Fever, unspecified Status: Acute Assessment and Plan: see above (4) Multiple sclerosis: Onset Date: 1997 Code(s): G35 - Multiple sclerosis Status: Acute Assessment and Plan: - PT/OT eval and treat ordered. - monitor patient for assistance with ALDs (5) Diarrhea: Code(s): R19.7 - Diarrhea, unspecified Status: Acute Assessment and Plan: --> large liquid stool today, stool culture/WBC/Cdiff sent. --- stool Hemacult test pending. - monitor closely. Plan DVT: mechanical Code status: Full Code - plan - continue with blood culture, stool tests pending, monitor vitals, regular diet. PT/OT to evaluate. Continue ATB. Will return to [facility] at discharge. Time Spent With Patient Time with patient: Greater than 35 minutes (45 minutes) Subjective Date/time seen: 06/30/24 11:22 Interval history: This is a pleasant 63-year-old female with a past medical history of multiple scleroses who presented to the ER from [facility] via EMS due to change in mental status. The patient's son, Olivier is at bedside today and reported history. 2 weeks ago this patient was hospitalized for persistent UTI that failed out patient management with ATB. It appears urine culture at that time was negative but she did complete a 2nd course of antibiotics with Augmentin. Patient was then discharged to [facility] for rehab, then home this week. Son reports that he has noticed that patient urine has appeared much darker and smelled more strongly. NH reportedly did a UA, which was contaminated with squamous cells. Patient a 2nd sample but the sample got lost. According to the son, prior to her hospitalization for UTI, patient was able to speak just slow and walk with walker. She was able to do a lot of her ADLs independently. The day of patient's arrival to ER, the staff at the [place] [facility] noticed that she was slumping over and was not as responsive. Patient's son reported that the patient frequently does lean to the right side whenever she is ill. According to [place] records, patient was febrile. In the ER patient was A/o x1, was leaning towards the right and looking somewhat to the right but was following commands. Rectal temp 102.5 and was tachycardic heart rate in the 130s. Patient's son denies the patient having any recent cough, chest pain, N/V/D, headaches, fatigue, headaches. ER exam noted have small pustules with mild underlying erythema of the mons pubis. Blood cultures. Viral PCRs were negative. urinalysis was negative, however sent for culture. White blood cell count 8.9, hemoglobin 10, hematocrit 28.4, platelets 289, MCV 82.3 MCH 29, MCHC 35.2, chloride 110, BUN 14, creatinine 0.78, GFR greater than 60. Sodium was 145. CT chest/abdomen/pelvis noted suggestive findings of potential pulmonary edema but no acute findings. Head CT noted no acute intracranial hemorrhage or suspicious mass-effect. Patient was given IV fluids, antipyretics, started on cefepime, vancomycin, and acyclovir none and admitted into the hospital for continued workup. Family at bedside was agreeable at that time. This a.m. patient is alert, able to answer some questions, she reports she is still weak and nauseated. however patient's son states she has not had any breakfast. Patient reports she has minimal discomfort. No chest pain, vomiting or diarrhea. Patient said denies any active distress. Review of Systems Review of Systems: All systems reviewed & are unremarkable except as noted in HPI and below Constitutional: Constitutional: Reports no additional constitutional complaints Eyes: Eyes: Reports no additional eye complaints ENT: Reports system reviewed and no additional complaints, except as documented Cardiovascular: Cardiovascular: Reports no additional cardiovascular complaints Respiratory: Respiratory: Reports as per HPI and Reports no additional respiratory complaints Gastrointestinal: Gastrointestinal: Reports no additional gastrointestinal complaints and Reports nausea Genitourinary: Genitourinary: Reports as per HPI and Reports urinary incontinence Musculoskeletal: Musculoskeletal: Reports muscle weakness and Reports stiffness Integumentary/Breasts: Skin/Breast: Reports system reviewed and no additional complaints, except as docu Neurologic: Reports system reviewed and no additional complaints, except as documented Psychiatric: Psychiatric: Reports no additional psychiatric complaints Exam Const: General: no acute distress, alert, awake, acute distress and tired appearing Orientation/consciousness: oriented to person, oriented to place and oriented to time HENMT: Head: normal to inspection and No palpable skull fracture present Eyes: General: appearance normal, both eyes and all related structures Neck: Neck: full ROM and no lymphadenopathy Chest: Chest palpation & inspection: normal inspection of the chest Resp: Effort & Inspection: normal respiratory effort Auscultation: clear to auscultation bilaterally Cardio: Jugular venous distension: no JVD Palpation: normal PMI Rate: regular rate Rhythm: regular rhythm Heart sounds: S1 normal heart sound present and S2 normal heart sound present Peripheral pulses: Peripheral pulses 2+ throughout GI: Inspection: normal to inspection GI Palp: Yes Soft to palpation and Yes No hepatosplenomegaly present Auscultation: Hyperactive bowel sounds present : External Female Exam: erythema (folliculitis to the mons pubis with erythema ) Skin: Rashes: rashes noted (mons pubis folliculitis) Neuro: General: oriented to person, oriented to place and Unable to assess gait Speech: normal speech (very slow speech but son reports this is her normal) Gait exam (Neuro): Unable to assess gait Psych: Appearance: grossly normal Objective Data Vital Signs Vital Signs: Vital Signs - 24 hr 06/29/24 14:51 06/29/24 15:00 06/29/24 15:03 Temperature 99.2 F Pulse Rate 133 H 132 H Respiratory Rate 24 H Blood Pressure Pulse Oximetry 100 Oxygen Delivery Room Air Room Air 06/29/24 15:30 06/29/24 16:00 06/29/24 16:30 Temperature Pulse Rate 134 H 133 H 131 H Respiratory Rate 22 H 21 H 22 H Blood Pressure 143/92 H 146/62 H 151/90 H Pulse Oximetry 100 98 99 Oxygen Delivery 06/29/24 17:00 06/29/24 17:30 06/29/24 18:58 Temperature Pulse Rate 129 H 129 H 119 H Respiratory Rate 20 21 H 20 Blood Pressure 145/85 H 138/83 138/83 Pulse Oximetry 96 95 95 Oxygen Delivery 06/29/24 20:00 06/29/24 20:35 06/29/24 21:00 Temperature 102.5 F H Pulse Rate 121 H 121 H Respiratory Rate 23 H 22 H Blood Pressure 137/78 136/85 Pulse Oximetry 96 99 Oxygen Delivery 06/29/24 21:45 06/29/24 22:30 06/29/24 23:30 Temperature Pulse Rate 122 H 127 H 125 H Respiratory Rate 22 H 19 15 Blood Pressure 138/84 127/82 Pulse Oximetry 96 93 Oxygen Delivery 06/29/24 23:31 06/29/24 23:32 06/29/24 23:45 Temperature Pulse Rate 122 H 109 H 123 H Respiratory Rate 17 15 20 Blood Pressure 120/82 120/72 Pulse Oximetry 98 94 93 Oxygen Delivery 06/30/24 00:00 06/30/24 00:00 06/30/24 00:15 Temperature 100.8 F H Pulse Rate 118 H 112 H Respiratory Rate 17 16 Blood Pressure Pulse Oximetry 94 Oxygen Delivery 06/30/24 00:16 06/30/24 00:58 06/30/24 01:16 Temperature 100.8 F H Pulse Rate 112 H 109 H Respiratory Rate 15 15 Blood Pressure 120/72 Pulse Oximetry 95 94 Oxygen Delivery 06/30/24 01:30 06/30/24 01:45 06/30/24 01:46 Temperature Pulse Rate 106 H 106 H 107 H Respiratory Rate 14 15 16 Blood Pressure 113/68 Pulse Oximetry 94 95 Oxygen Delivery 06/30/24 02:00 06/30/24 02:15 06/30/24 02:56 Temperature Pulse Rate 113 H 117 H 105 H Respiratory Rate 17 21 H 14 Blood Pressure Pulse Oximetry 95 98 93 Oxygen Delivery 06/30/24 03:00 06/30/24 03:15 06/30/24 03:16 Temperature Pulse Rate 106 H 104 H 104 H Respiratory Rate 14 14 12 Blood Pressure 108/70 Pulse Oximetry 93 94 91 Oxygen Delivery 06/30/24 03:30 06/30/24 03:45 06/30/24 04:00 Temperature Pulse Rate 99 97 101 H Respiratory Rate 13 12 13 Blood Pressure Pulse Oximetry 95 94 94 Oxygen Delivery 06/30/24 04:01 06/30/24 04:15 06/30/24 04:27 Temperature 97.8 F Pulse Rate 104 H 101 H 102 H Respiratory Rate 14 13 15 Blood Pressure 107/78 107/78 Pulse Oximetry 94 96 Oxygen Delivery 06/30/24 05:43 06/30/24 06:00 06/30/24 08:00 Temperature 99.4 F 98.3 F Pulse Rate 105 H 94 91 Respiratory Rate 16 16 Blood Pressure 109/72 114/68 Pulse Oximetry 96 92 Oxygen Delivery Intake/Output Intake/Output: Intake & Output 06/27/24 06/28/24 06/29/24 06/30/24 23:59 23:59 23:59 23:59 Intake Total 2311 1500 Output Total 500 Balance 2311 1000 Meds/Results Medications: Active Medications Generic Name Dose Route Start Last Admin Trade Name Freq PRN Reason Stop Dose Admin Acetaminophen 650 mg 06/29/24 23:48 Acetaminophen 325 Mg Tablet PO Q4H PRN Mild Pain (1-3) or Fever Enoxaparin Sodium 40 mg 06/30/24 09:00 06/30/24 09:34 Enoxaparin 40 Mg/0.4 Ml Syringe SUB-Q 40 mg DAILY APRYL Administration Cefepime HCl 2 gm in 50 mls @ 100 mls/hr 06/30/24 08:00 06/30/24 09:28 Maxipime 2 Gm/Ns 50 Ml IVPB 100 mls/hr Q12H APRYL Administration Acyclovir Sodium 550 mg/ 261 mls @ 261 mls/hr 06/30/24 10:00 06/30/24 10:06 Dextrose IVPB 261 mls/hr Q12H APRYL Administration Vancomycin HCl 1,000 mg in 250 mls @ 250 mls/hr 07/01/24 00:00 Vancomycin 1,000 Mg/Ns 250 Ml IVPB Q24H APRYL Magnesium Oxide 200 mg 06/30/24 09:00 06/30/24 09:34 Magnesium Oxide 200 Mg Tablet PO 200 mg DAILY APRYL Administration Miscellaneous Information 1 each 06/30/24 00:01 Dimethyl Fumarate [Tecfidera] 240 Mg Capsule,Delayed Release(Dr/Ec Is Nonformulary, Can Pa XX 07/30/24 00:00 CLARIFY APRYL Non-Formulary Medication 240 mg 06/30/24 09:00 Dimethyl Fumarate [Tecfidera] PO 07/30/24 08:59 BID APRYL Potassium Chloride 40 meq 06/30/24 09:00 06/30/24 09:34 Potassium Chloride 20 Meq Packet (For Liquid) PO 40 meq DAILY APRYL Administration Radiology Results: ITS Impressions Chest X-Ray 06/29/24 18:09 IMPRESSION: No focal infiltrate or effusion. Head CT 06/29/24 18:28 Impression: No acute intracranial hemorrhage or suspicious mass effect. Chest/Abdomen/Pelvis CT 06/29/24 20:48 IMPRESSION: Findings suggesting pulmonary edema. No additional acute findings, as detailed above. Labs Labs: Laboratory Results - last 24 hr 06/29/24 06/29/24 06/30/24 15:48 17:17 08:36 WBC 8.9 6.3 RBC 3.45 L 2.93 L Hgb 10.0 L 8.6 L Hct 28.4 L 24.5 L MCV 82.3 83.6 MCH 29.0 29.4 MCHC 35.2 35.1 RDW 17.6 H 17.9 H Plt Count 289 199 MPV 9.3 9.3 Immature Gran % (Auto) 0.7 H 0.6 H Neut % (Auto) 90.8 H 73.6 H Lymph % (Auto) 2.3 L 11.1 L [place] % (Auto) 5.2 13.4 H Eos % (Auto) 0.9 0.8 Baso % (Auto) 0.1 L 0.5 Lymph # (Auto) 0.20 L 0.70 L [place] # (Auto) 0.5 0.9 H Eos # (Auto) 0.1 0.1 Baso # (Auto) 0.0 0.0 Abs Immat Gran (auto) 0.06 H 0.04 H Absolute Neuts (auto) 8.1 H 4.7 Absolute Nucleated RBC 0.000 0.000 Nucleated RBC % 0.0 0.0 Platelet Estimate Adequate Hypochromasia 2+ Anisocytosis 1+ Target Cells 2+ Schistocytes None seen Sodium 145 139 Potassium 3.8 3.7 Chloride 110 H 112 H Carbon Dioxide 25 20 L Anion Gap 10 7 BUN 14 D 13 Creatinine 0.78 0.74 Estim Creat Clear Calc 45 53 Estimated GFR > 60 > 60 Glucose 106 86 Lactic Acid 1.7 Calcium 9.2 8.2 L Total Bilirubin 0.5 AST 33 ALT 32 Alkaline Phosphatase 57 Total Protein 8.0 Albumin 3.5 Procalcitonin 0.2 Urine Color Yellow Urine Appearance Clear Urine pH 8.0 Ur Specific [place] 1.016 Urine Protein Trace Urine Glucose (UA) Negative Urine Ketones Negative Ur Blood (Man) Trace Urine Nitrate Negative Urine Bilirubin Negative Urine Urobilinogen 1.0 Leukocyte Esterase Rfl Negative Urine RBC 6-10 H Urine WBC 0-5 Ur Squamous Epith Cells None seen Urine Bacteria None seen Urine Casts 0-2 Influenza A (RT-PCR) Negative Influenza B (RT-PCR) Negative RSV (RT-PCR) Negative SARS-CoV-2 RNA (RT-PCR) Negative Hospitalist MIPS Advance Care Plan I have confirmed that the patient's Advanced Care Plan is present, code status is documented, or surrogate decision maker is listed in patient medical record.: Yes Medication Reconciliation I have utilized all available resources to obtain, update and review the patients current medications (includes all prescriptions, OTC, herbals, cannabis, and nutritional supplements).: Yes
[2024-06-30 12:40] LABS: IFOB Positive Control Positive; Immunochemical Fecal Occult Bl Negative (N)
[2024-06-30 13:50] LABS: Toxigenic C. Diff POSITIVE (NEGATIVE)
[2024-06-30] MEDS: VANCOMYCIN HCL 125 MG ORAL CAPSULE PO ×2 (17:20→23:54)
[2024-06-30] MEDS: VANCOMYCIN 1,000 MG/NS 250 ML 1,000 MG/250 ML BAG 250 MG IVPB (23:54)
[2024-07-01] VITALS (14 sets, daily range): BP systolic 114–140; BP diastolic 74–87; PULSE 88–117; RESP 14–20; TEMP 36.6–37.2; O2SAT 95–100; BMI 21.7
[2024-07-01 05:23] LABS: Basophils Percent Auto 0.6 % (0.2-1.2); Eosinophils Absolute Auto 0.1 K/mm3 (0-0.3); Eosinophils Percent Auto 2.7 % (0-4.4); Hematocrit 26.1 % (37.0-47.0); Hemoglobin 9.3 g/dL (12.0-15.0); Immature Granulocyte Absolute 0.02 K/mm3 (0.00-0.031); Immature Granulocyte Percent A 0.4 % (0-0.5); Lymphocytes Absolute Auto 0.99 K/mm3 (0.9-3.2); Lymphocytes Percent Auto 20.2 % (18.3-44.2); Mean Corpuscular HGB Conc 35.6 g/dl (32-36); Mean Corpuscular Hemoglobin 29.3 pg (26-34); Mean Corpuscular Volume 82.3 fl (80-100); Monocytes Absolute Auto 0.7 K/mm3 (0.1-0.6); Monocytes Percent Auto 14.9 % (2.6-8.5); Neutrophils Percent Auto 61.2 % (45.5-73.1); Platelet Count Result 223 k/mm3 (150-375); Red Blood Count 3.17 M/mm3 (4.2-5.4); Red Cell Distribution Width 17.3 % (11.5-14.5); White Blood Count 4.9 K/mm3 (4.5-10.0)
[2024-07-01 05:33] LABS: Alanine Aminotransferase 35 U/L (6-35); Albumin Level 2.8 g/dL (3.5-5.1); Alkaline Phosphatase 47 U/L (38-126); Anion Gap 8 mmol/L (4-12); Aspartate Amino Transferase 37 U/L (14-36); Bilirubin,Total 0.4 mg/dL (0.2-1.3); Blood Urea Nitrogen 8 mg/dL (7-17); Calcium 8.3 mg/dL (8.4-10.2); Carbon Dioxide 20 mmol/L (22-30); Chloride 111 mmol/L (98-107); Estimated CRCL calculation 62 ml/min; Estimated Glomerular Filt Rate > 60; Glucose 80 mg/dL (65-110); Magnesium 1.6 mg/dL (1.6-2.3); Potassium 3.3 mmol/L (3.4-5.0); Sodium 139 mmol/L (137-145)
[2024-07-01] MEDS: VANCOMYCIN HCL 125 MG ORAL CAPSULE PO ×4 (05:51→23:52)
--- NOTE | 2024-07-01 09:23 | P.PNIM_ITS ---
Progress Note: A&P Assessment and Plan (1) Sepsis: Qualifiers: Sepsis acute organ dysfunction status: without acute organ dysfunction Sepsis type: sepsis due to unspecified organism Qualified Code(s): A41.9 - S epsis, unspecified organism Code(s): A41.9 - Sepsis, unspecified organism Status: Acute Assessment and Plan: * Initially meeting sepsis criteria with heart rate in the 130s, tachypnea, temp of 102.5?-- improved with IV fluids * blood and stool cultures were obtained and currently showing no growth to date on preliminary read * patient was started on acyclovir, cefepime 2 g, Zosyn, vancomycin, will discontinue Zosyn, cefepime, and vancomycin IV. Start Bactrim * UA was negative * Will check urine culture * chest x-ray was negative * Head CT was negative * chest/abdomen/ pelvis CT showed pulmonary edema otherwise negative * she is C diff positive--continue oral vancomycin * respiratory panel was negative for influenza a and B, RSV, COVID * lumbar puncture was attempted however failed due to scoliosis * Will swab for HSV, check EBV, syphilis * pustular rash on mons pubis--?HSV (2) Diarrhea: Code(s): R19.7 - Diarrhea, unspecified Status: Acute Assessment and Plan: * C diff positive * stool culture pending * blood culture showing no growth to date on preliminary read * continue oral vancomycin (3) Acute metabolic encephalopathy: Code(s): G93.41 - Metabolic encephalopathy Status: Acute Assessment and Plan: * continue neuro checks * Currently alert and oriented x1 which is her baseline (4) Multiple sclerosis: Onset Date: 1997 Code(s): G35 - Multiple sclerosis Status: Acute Assessment and Plan: * continue PT and OT Time Spent With Patient Time with patient: Greater than 35 minutes Subjective Date/time seen: 07/01/24 09:23 Interval history: Interval history: This is a 63-year-old female with a significant past medical history of multiple sclerosis who presented to the hospital from [facility] via EMS for evaluation of altered mental status. Workup in the hospital included a chest x-ray which was negative for any infiltrate or effusion. Head CT was negative for any intracranial hemorrhage or suspicious mass effect. Chest/abdomen/ pelvis CT showed pulmonary edema otherwise no additional findings. Initial labs showed a normal white blood cell count of 8.9, hemoglobin 10.0. UA showed 6-10 urine RBC, otherwise negative. Fecal occult blood was negative. Respiratory panel was negative for influenza a and B, RSV, COVID. She was found to have C diff. blood and stool cultures are pending. EKG showed sinus tachycardia with a rate of 122, QTC 415. She was also found to have mons pubis folliculitis with erythema. She was initially meeting Sepsis criteria with a heart rate of 133, respiratory rate of 24, temp 102.5. She was started on acyclovir, Zosyn, Cefepime, and Vancomycin. Subjective: Patient is alert and oriented x1. Labs reviewed. Review of Systems Review of Systems: All systems reviewed & are unremarkable except as noted in HPI and below ROS unobtainable: Yes unobtainable due to mental status Constitutional: Constitutional: Reports no additional constitutional complaints Eyes: Eyes: Reports no additional eye complaints ENT: Reports system reviewed and no additional complaints, except as documented Cardiovascular: Cardiovascular: Reports no additional cardiovascular complaints Respiratory: Respiratory: Reports as per HPI and Reports no additional respiratory complaints Gastrointestinal: Gastrointestinal: Reports no additional gastrointestinal complaints and Reports nausea Genitourinary: Genitourinary: Reports as per HPI and Reports urinary incontinence Musculoskeletal: Musculoskeletal: Reports muscle weakness and Reports stiffness Integumentary/Breasts: Skin/Breast: Reports system reviewed and no additional complaints, except as docu Neurologic: Reports system reviewed and no additional complaints, except as documented Psychiatric: Psychiatric: Reports no additional psychiatric complaints Exam Narrative: General: In no acute distress, well nourished Head: atraumatic, no encephalopathy Eyes: PERRLA, sclera clear ENT: moist mucous membranes, nasal passages clear Neck: supple, no JVD, no adenopathy, trachea midline Cardiac: Normal S1 and S2. No murmur, gallops or friction rubs, peripheral pulses intact. Respiratory: Lungs clear to auscultation, no adventitious lung sounds, currently on room air Gastrointestinal: soft, non-distended, non-tender, normoactive bowel sounds. : voiding without difficulty. Extremities: moves all extremities well, no edema Skin:pustular lesions mons pubis Neuro: Alert and oriented x4, cranial nerves intact, no neuro deficits. Psych: normal mood, normal affect, interactive Objective Data Vital Signs Vital Signs: Vital Signs - 24 hr 06/30/24 10:00 06/30/24 12:00 06/30/24 12:00 Temperature 97.8 F Pulse Rate 89 98 Respiratory Rate 20 Blood Pressure 129/71 Pulse Oximetry 96 Oxygen Delivery Room Air 06/30/24 12:00 06/30/24 14:00 06/30/24 16:00 Temperature Pulse Rate 93 79 102 H Respiratory Rate Blood Pressure Pulse Oximetry Oxygen Delivery 06/30/24 16:00 06/30/24 16:00 06/30/24 18:00 Temperature 98.0 F Pulse Rate 98 96 Respiratory Rate 28 H Blood Pressure 148/90 H Pulse Oximetry 97 Oxygen Delivery Room Air 06/30/24 20:00 06/30/24 20:00 06/30/24 22:00 Temperature 98.7 F Pulse Rate 98 95 Respiratory Rate 18 Blood Pressure 126/83 Pulse Oximetry 99 Oxygen Delivery Room Air 06/30/24 22:00 06/30/24 23:39 07/01/24 00:00 Temperature 98.5 F Pulse Rate 91 95 102 H Respiratory Rate 16 Blood Pressure 129/66 Pulse Oximetry 99 Oxygen Delivery 07/01/24 00:00 07/01/24 02:00 07/01/24 04:00 Temperature 98.8 F Pulse Rate 101 H 88 Respiratory Rate 16 Blood Pressure 122/74 Pulse Oximetry 99 Oxygen Delivery Room Air 07/01/24 04:00 07/01/24 04:20 07/01/24 06:00 Temperature Pulse Rate 88 92 Respiratory Rate Blood Pressure Pulse Oximetry Oxygen Delivery Room Air 07/01/24 07:49 Temperature 98.2 F Pulse Rate 94 Respiratory Rate 14 Blood Pressure 114/76 Pulse Oximetry 100 Oxygen Delivery Intake/Output Intake/Output: Intake & Output 06/28/24 06/29/24 06/30/24 07/01/24 23:59 23:59 23:59 23:59 Intake Total 2311 2301 886 Output Total 1000 500 Balance 2311 1301 386 Meds/Results Medications: Active Medications Generic Name Dose Route Start Last Admin Trade Name Freq PRN Reason Stop Dose Admin Acetaminophen 650 mg 06/29/24 23:48 Acetaminophen 325 Mg Tablet PO Q4H PRN Mild Pain (1-3) or Fever Enoxaparin Sodium 40 mg 06/30/24 09:00 06/30/24 09:34 Enoxaparin 40 Mg/0.4 Ml Syringe SUB-Q 40 mg DAILY APRYL Administration Cefepime HCl 2 gm in 50 mls @ 100 mls/hr 06/30/24 08:00 06/30/24 22:40 Maxipime 2 Gm/Ns 50 Ml IVPB Infused Q12H APRYL Infusion Acyclovir Sodium 550 mg/ 261 mls @ 261 mls/hr 06/30/24 10:00 07/01/24 00:55 Dextrose IVPB Infused Q12H APRYL Infusion Vancomycin HCl 1,000 mg in 250 mls @ 250 mls/hr 07/01/24 00:00 07/01/24 00:55 Vancomycin 1,000 Mg/Ns 250 Ml IVPB Infused Q24H APRYL Infusion Magnesium Oxide 200 mg 06/30/24 09:00 06/30/24 09:34 Magnesium Oxide 200 Mg Tablet PO 200 mg DAILY APRYL Administration Miscellaneous Information 1 each 06/30/24 00:01 Dimethyl Fumarate [Tecfidera] 240 Mg Capsule,Delayed Release(Dr/Ec Is Nonformulary, Can Pa XX 07/30/24 00:00 CLARIFY [facility] Non-Formulary Medication 240 mg 06/30/24 09:00 Dimethyl Fumarate [Tecfidera] PO 07/30/24 08:59 BID APRYL Ondansetron HCl 4 mg 06/30/24 14:52 Ondansetron Inj 4 Mg/2 Ml Vial IV PUSH Q6H PRN Nausea And Vomiting Potassium Chloride 40 meq 06/30/24 09:00 06/30/24 09:34 Potassium Chloride 20 Meq Packet (For Liquid) PO 40 meq DAILY APRYL Administration Vancomycin HCl 125 mg 06/30/24 18:00 07/01/24 05:51 Vancomycin Hcl 125 Mg Oral Capsule PO 125 mg Q6HR APRYL Administration Radiology Results: ITS Impressions Chest X-Ray 06/29/24 18:09 IMPRESSION: No focal infiltrate or effusion. Head CT 06/29/24 18:28 Impression: No acute intracranial hemorrhage or suspicious mass effect. Chest/Abdomen/Pelvis CT 06/29/24 20:48 IMPRESSION: Findings suggesting pulmonary edema. No additional acute findings, as detailed above. Labs Labs: Laboratory Results - last 24 hr 06/30/24 07/01/24 12:04 04:31 WBC 4.9 RBC 3.17 L Hgb 9.3 L Hct 26.1 L MCV 82.3 MCH 29.3 MCHC 35.6 RDW 17.3 H Plt Count 223 MPV 10.0 Immature Gran % (Auto) 0.4 Neut % (Auto) 61.2 Lymph % (Auto) 20.2 [place] % (Auto) 14.9 H Eos % (Auto) 2.7 Baso % (Auto) 0.6 Lymph # (Auto) 0.99 [place] # (Auto) 0.7 H Eos # (Auto) 0.1 Baso # (Auto) 0.0 Abs Immat Gran (auto) 0.02 Absolute Neuts (auto) 3.0 Absolute Nucleated RBC 0.000 Nucleated RBC % 0.0 Sodium 139 Potassium 3.3 L Chloride 111 H Carbon Dioxide 20 L Anion Gap 8 BUN 8 D Creatinine 0.62 L Estim Creat Clear Calc 62 Estimated GFR > 60 Glucose 80 Calcium 8.3 L Magnesium 1.6 Total Bilirubin 0.4 AST 37 H ALT 35 Alkaline Phosphatase 47 Total Protein 6.0 L Albumin 2.8 L Stl Occult Blood (IFOB) Negative C. difficile (PCR) Positive A*
[2024-07-01] MEDS: MAGNESIUM OXIDE 200 MG TABLET PO (10:36)
[2024-07-01] MEDS: SULFAMETHOXAZOLE/TRIMETHOPRIM 800/160 MG DS TABLET 1 TAB PO ×2 (10:36→22:07)
[2024-07-01] MEDS: ENOXAPARIN 40 MG/0.4 ML SYRINGE SUB-Q (10:36)
[2024-07-01] MEDS: POTASSIUM CHLORIDE 20 MEQ PACKET (FOR LIQUID) 40 MEQ PO (10:36)
[2024-07-01] MEDS: WATER IVPB (11:37)
[2024-07-01] MEDS: ACYCLOVIR SODIUM IVPB (11:37)
[2024-07-01] MEDS: DEXTROSE 5% IVPB (11:37)
[2024-07-01 12:11] LABS: Syphilis IgG/IgM Antibody Negative (Negative)
--- NOTE | 2024-07-01 14:35 | PC.NURSE ---
Received from [facility] via bed.
[2024-07-01] MEDS: valACYclovir HCL 500 MG TABLET 1000 MG PO (22:06)
[2024-07-02] MEDS: SODIUM CHLORIDE 0.9% IV 1,000 ML 100 ML IV CONT (04:04)
--- NOTE | 2024-07-02 04:06 | PC.NURSE ---
Dr Goldstein notified pt urine output <100ml overnight, bladder scan currently shows 160ml. Pt has had poor PO intake overnight, but exhibited coughing after most intake, suspicious for aspiration. Order received for 1L NS over 10hrs and ST bedside eval.
[2024-07-02 05:31] VITALS: BP 121/78; PULSE 96; RESP 16; TEMP 37.7; O2SAT 99
[2024-07-02 06:05] LABS: Basophils Percent Auto 0.6 % (0.2-1.2); Eosinophils Absolute Auto 0.1 K/mm3 (0-0.3); Eosinophils Percent Auto 2.5 % (0-4.4); Hematocrit 28.9 % (37.0-47.0); Hemoglobin 10.2 g/dL (12.0-15.0); Immature Granulocyte Absolute 0.02 K/mm3 (0.00-0.031); Immature Granulocyte Percent A 0.4 % (0-0.5); Lymphocytes Absolute Auto 0.99 K/mm3 (0.9-3.2); Lymphocytes Percent Auto 20.6 % (18.3-44.2); Mean Corpuscular HGB Conc 35.3 g/dl (32-36); Mean Corpuscular Hemoglobin 29.1 pg (26-34); Mean Corpuscular Volume 82.3 fl (80-100); Mean Platelet Volume 9.9 fl (7.4-10.4); Monocytes Absolute Auto 0.6 K/mm3 (0.1-0.6); Monocytes Percent Auto 13.3 % (2.6-8.5); Neutrophils Percent Auto 62.6 % (45.5-73.1); Platelet Count Result 263 k/mm3 (150-375); Red Blood Count 3.51 M/mm3 (4.2-5.4); Red Cell Distribution Width 17.2 % (11.5-14.5); White Blood Count 4.8 K/mm3 (4.5-10.0)
[2024-07-02] MEDS: VANCOMYCIN HCL 125 MG ORAL CAPSULE PO ×3 (06:16→16:58)
[2024-07-02 06:18] LABS: Alanine Aminotransferase 33 U/L (6-35); Albumin Level 3.1 g/dL (3.5-5.1); Alkaline Phosphatase 50 U/L (38-126); Anion Gap 10 mmol/L (4-12); Aspartate Amino Transferase 30 U/L (14-36); Bilirubin,Total 0.3 mg/dL (0.2-1.3); Blood Urea Nitrogen 6 mg/dL (7-17); Calcium 8.7 mg/dL (8.4-10.2); Carbon Dioxide 23 mmol/L (22-30); Chloride 108 mmol/L (98-107); Estimated CRCL calculation 50 ml/min; Estimated Glomerular Filt Rate > 60; Glucose 90 mg/dL (65-110); Magnesium 1.7 mg/dL (1.6-2.3); Potassium 3.3 mmol/L (3.4-5.0); Sodium 141 mmol/L (137-145)
--- NOTE | 2024-07-02 07:44 | P.CDI_ITS ---
CDI Query Clarification Request BMI: 21.8 Nutritional Diagnostic Statement: Please refer to the comprehensive nutrition assessment for further information. If you agree with diagnosis of Severe protein calorie malnutrition related to chronic loss of appetite as evidenced by weight loss -9%/4 months; intakes <75% meals >1 month; moderate muscle wasting and fat loss. Please specify severity if known: * Mild * Moderate * Severe * Other/Unknown <Carla Gregg RN - Last Filed: 07/02/24 08:19> Clarified Diagnosis Clarified Diagnosis: severe <Catherine Singh APRN - Last Filed: 07/02/24 10:23>
[2024-07-02 07:50] VITALS: RESP 16; O2SAT 99
[2024-07-02 08:35] VITALS: BP 122/84; PULSE 93; RESP 16; TEMP 36.7; O2SAT 99
[2024-07-02] MEDS: POTASSIUM CHLORIDE 20 MEQ PACKET (FOR LIQUID) 40 MEQ PO (09:08)
[2024-07-02] MEDS: ENOXAPARIN 40 MG/0.4 ML SYRINGE SUB-Q (09:08)
[2024-07-02] MEDS: SULFAMETHOXAZOLE/TRIMETHOPRIM 800/160 MG DS TABLET 1 TAB PO (09:08)
[2024-07-02] MEDS: MAGNESIUM OXIDE 200 MG TABLET PO (09:09)
[2024-07-02] MEDS: valACYclovir HCL 500 MG TABLET 1000 MG PO (09:09)
--- NOTE | 2024-07-02 10:03 | PCSTNOTE ---
Please refer to the Bedside Swallow Evaluation in the EMR. Please note, silent aspiration cannot be ruled out at bedside. Pt was seen at the bedside for a swallow evaluation; A cursory oral motor assessment revealed good dentition and good labial and lingual function in regards to ROM and strength. Vocal quality was clear; her cough before oral trials was moderately strong. The pt was seated upright in the bed and evaluated with her breakfast meal which included pieces of a pancake, bite-size pieces of sausage, cream of wheat, uncontrolled sips of coffee via a cup, and uncontrolled straw drinking mildly thick liquids (Ensure) and water. Pt was also given crushed meds via applesauce (RN presented). The oral stages were WFL; pt occasionally was distracted by the TV or someone walking by her room which required redirection to chew and to continue eating. No leakage or pocketing was noted; mastication was WFL but slightly slow; during the pharyngeal stage, laryngeal elevation appeared adequate. No overt s/s of aspiration were exhibited. Impression: Functional swallow ability Recommendation: continue current diet regular solids and liquids; pt needs set-up assist with meals, i.e. cutting up food; removing lids etc. No further ST warranted at this time. Thank you for this referral.
--- NOTE | 2024-07-02 10:23 | PM.DS ---
DS: Admitting Diagnosis Discharge Date 07/02/24 DS: Summary Time Spent with Patient Time attestation: Total time spent providing and/or coordinating discharge services: DS: Data Data Completed and Pending Labs on day of discharge: Labs from last 24 hours 07/02/24 07/01/24 07/01/24 05:33 22:20 04:27 WBC 4.8 RBC 3.51 L Hgb 10.2 L Hct 28.9 L MCV 82.3 MCH 29.1 MCHC 35.3 RDW 17.2 H Plt Count 263 MPV 9.9 Immature Gran % (Auto) 0.4 Neut % (Auto) 62.6 Lymph % (Auto) 20.6 [place] % (Auto) 13.3 H Eos % (Auto) 2.5 Baso % (Auto) 0.6 Lymph # (Auto) 0.99 [place] # (Auto) 0.6 Eos # (Auto) 0.1 Baso # (Auto) 0.0 Abs Immat Gran (auto) 0.02 Absolute Neuts (auto) 3.0 Absolute Nucleated RBC 0.000 Nucleated RBC % 0.0 Sodium 141 Potassium 3.3 L Chloride 108 H Carbon Dioxide 23 Anion Gap 10 BUN 6 L Creatinine 0.78 Estim Creat Clear Calc 50 Estimated GFR > 60 Glucose 90 Calcium 8.7 Magnesium 1.7 Total Bilirubin 0.3 AST 30 ALT 33 Alkaline Phosphatase 50 Total Protein 7.0 Albumin 3.1 L Stool Rotavirus Antigen Syphilis IgG/IgM Ab Negative EBV Source Pending EBV (Quant-PCR) Quant Pending EBV DNA Quant PCR log10 Pending Herpes Virus Source Pending Herpes Simplex Culture Pending 06/30/24 12:04 WBC RBC Hgb Hct MCV MCH MCHC RDW Plt Count MPV Immature Gran % (Auto) Neut % (Auto) Lymph % (Auto) [place] % (Auto) Eos % (Auto) Baso % (Auto) Lymph # (Auto) [place] # (Auto) Eos # (Auto) Baso # (Auto) Abs Immat Gran (auto) Absolute Neuts (auto) Absolute Nucleated RBC Nucleated RBC % Sodium Potassium Chloride Carbon Dioxide Anion Gap BUN Creatinine Estim Creat Clear Calc Estimated GFR Glucose Calcium Magnesium Total Bilirubin AST ALT Alkaline Phosphatase Total Protein Albumin Stool Rotavirus Antigen Syphilis IgG/IgM Ab EBV Source EBV (Quant-PCR) Quant EBV DNA Quant PCR log10 Herpes Virus Source Herpes Simplex Culture Preliminary micro results at discharge 06/29/24 21:31 Blood Culture - Preliminary Blood 06/29/24 20:55 Blood Culture - Preliminary Blood Discharge Plan Discharge Attending physician on discharge: Yazmin Mojica Discharging Clinician: Catherine Singh Anticipated Discharge Date/Time: 07/02/24 10:18 Patient Disposition: SNF Activity: as tolerated Diet: as tolerated and regular Discharge Instructions: Finish all of your antibiotics as directed even if you are feeling better Follow up with your primary care doctor in 1 week. Patient Instructions: Antibiotic Form Patient Language: Afghan Stand Alone Forms: General Discharge Information Follow-up/Referrals: Tico Laboy MD [Primary Care Provider] - 1 Week Discharge Medications: New sulfamethoxazole-trimethoprim 800-160 mg Tablet 1 tab PO Q12HR Qty: 10 0RF valacyclovir [Valtrex] 500 mg Tablet 1,000 mg PO Q12HR Qty: 17 0RF vancomycin 125 mg Capsule 125 mg PO Q6HR Qty: 33 0RF Continued potassium chloride 20 mEq Packet 40 meq PO DAILY Qty: 7 0RF magnesium 200 mg tablet 200 mg PO DAILY Qty: 7 0RF CalaSoothe 0.44-20.6 % ointment in packet 1 applic topical DAILY Rx Instructions: apply to left buttock and cover with foam dressing daily. dimethyl fumarate [Tecfidera] 240 mg capsule,delayed release(DR/EC) 240 mg PO BID Qty: 180 0RF Date of admission: 06/29/24 23:52 Primary Care Provider: Tico Laboy Admitting Provider: Kisha Goldstein Attending physician on admission: Catherine Singh Condition: Improved
[2024-07-04 00:43] LABS: EVB DNA,QN PCR Not Detected log IU/mL (Not Detected); Epstein Barr Virus PCR Not Detected (Not Detected)
[2024-07-04 15:39] LABS: Source NOT GIVEN
--- NOTE | 2024-07-05 07:23 | PC.NURSE ---
EBV is not detected. HVS is not isolated. Stool cx is negative.
== END 2024-07-02 17:05 | DRG 871 ==
LOC: ANHED 15:22 → ANHIMU 06-30 00:12 → ANH2MED 07-01 14:29
PROVIDERS: Nurse Practitioner Family; Admitting Provider Internal Medicine; Emergency Provider Emergency Medicine; PCP Family Medicine Adolescent Medicine; Visit Provider Nurse Practitioner Acute Care
DX: A41.9 Sepsis, unspecified organism (principal); E43 Unspecified severe protein-calorie malnutrition; G93.41 Metabolic encephalopathy; A04.72 Enterocolitis due to Clostridium difficile, not specified as recurrent; G35 Multiple sclerosis; I48.0 Paroxysmal atrial fibrillation; I10 Essential (primary) hypertension; R32 Unspecified urinary incontinence; I87.2 Venous insufficiency (chronic) (peripheral); M41.9 Scoliosis, unspecified; R21 Rash and other nonspecific skin eruption; L73.9 Follicular disorder, unspecified; L53.9 Erythematous condition, unspecified; Z68.21 Body mass index [BMI] 21.0-21.9, adult; Z20.822 Contact with and (suspected) exposure to COVID-19
CPT/HCPCS: 36415; 62270; 70450; 71045; 71260; 74177; 80048; 80053; 81001; 82274; 83605; 83735; 84145; 85025; 86593; 87040; 87045; 87086; 87140; 87255; 87425; 87427; 87449; 87493; 87637; 89055; 92610; 93005; 96361; 96365; 96366; 96367; 96375; 97163; 97166; 99285; A9270; J0133; J0692; J1650; J2250; J3370; J7030; J7060; J7120; Q9967

== ENCOUNTER 2024-10-23 11:30 | Inpatient (IN) | payer MEDICARE, OTHER, SELFPAY ==
[2024-10-23] VITALS (10 sets, daily range): BP systolic 129–132; BP diastolic 63–92; PULSE 108–131; RESP 20–26; TEMP 36.4–36.8; O2SAT 95–98; BMI 18.7
--- NOTE | ~2024-10-23 | CT_ITS ---
CT Scan of the Chest without Contrast: Clinical Indication: Abnormal chest x-ray Technique: Contiguous sections were acquired throughout the chest without intravenous contrast. Dose reduction technique was used on this scan by utilizing automated exposure control and iterative recon struction technique. The dose-length product (DLP) was 178.82 mGy-cm. COMPARISON: 06/29/2024 Findings: Stable left thyroid nodule. There is no evidence of any significant mediastinal, hilar or axillary lymphadenopathy. The mediastin al soft tissues appear normal. There is no evidence of pleural or pericardial effusion. There is patchy groundglass opacity in the left upper lobe, compatible with pneumonia. There is bibas ilar atelectatic change Images through the upper abdomen reveal no abnormalities. Impression: Patchy left upper lobe pneumonia. Bibasilar atelectatic change. Reviewed, dictated and finalized at [facility]. Impression: Patchy left upper lobe pneumonia. Bibasilar atelectatic change.
--- NOTE | ~2024-10-23 | XR_ITS ---
XR chest 1V portable 10/23/2024 13:20 Indication: Weakness. Procedure: AP portable chest Comparison: 06/29/2024 Findings: There is mild interstitial edema. No significant effusion. Scoliosis. Heart size normal. No pneumothorax. Impression: 1: Mild interstitial edema. Reviewed, dictated and finalized at location B. Impression: 1: Mild interstitial edema.
--- NOTE | ~2024-10-23 | US_ITS ---
EXAMINATION:US venous doppler LE RT INDICATION:Right leg swelling TECHNIQUE: Multiple grayscale, color flow and Doppler images of the right lower extremity deep venous systems were obtained and reviewed. COMPARISON:No prior studies for comparison. FINDINGS: There is extensive deep venous thrombosis in the right lower extremity extending from the c ommon femoral vein through the peroneal vein. There is thrombosis of the gastrocnemius and greater sa phenous veins as well. IMPRESSION: 1: Extensive deep venous thrombosis of the right lower extremity veins. Dr. [place] discussed with the patient's nurse, Mora, at 10/24/2024 10:00 CDT. Reviewed, dictated and finalized at location B.
--- NOTE | ~2024-10-23 | XR_ITS ---
MODIFIED ESOPHAGRAM HISTORY: Choking episodes. Reevaluate swallow. TECHNIQUE: Modified barium esophagram was performed on 10/28/2024. I administered fluoroscopy and perf ormed the exam with speech pathologist. Patient was seated for lateral fluoroscopic imaging for marcio stion of thin liquids, pudding, solids and quantified amounts, followed by thin liquids in uncontroll ed amounts. This was recorded on tape. A single fluoroscopic spot image was also recorded. The DAP fo r this procedure was 34.15 mGycm2. The amount of fluoroscopy time used during this procedure was 2 mi nutes. FINDINGS: Oral stage: Adequate function. Pharyngeal stage: Adequate function. There is residue at the left side of the piriform sinus which cl eared with repositioning of the head to the neutral position and a subsequent dry swallow. Cervical/esophageal stage: Adequate function. IMPRESSION: Patient tolerated regular consistency oral feedings in the upright position. Please triston elate with speech pathologist findings and specific feeding recommendations. Reviewed, dictated and finalized at location A. IMPRESSION: Patient tolerated regular consistency oral feedings in the upright position. Please correlate with speech pathologist findings and specific feedi ng recommendations.
--- NOTE | ~2024-10-23 | XR_ITS ---
MODIFIED ESOPHAGRAM HISTORY: Witnessed coughing episode TECHNIQUE: Modified barium esophagram was performed on 10/24/2024. I administered fluoroscopy and perf ormed the exam with speech pathologist. Patient was seated for lateral fluoroscopic imaging for marcio stion of thin liquids, pudding, solids and quantified amounts, followed by thin liquids in uncontroll ed amounts. This was recorded on tape. A single fluoroscopic spot image was also recorded. The DAP fo r this procedure was 1.54 Gycm2. The amount of fluoroscopy time used during this procedure was 2.8 mi nutes. FINDINGS: Oral stage: Adequate function. Pharyngeal stage: Reduced laryngeal elevation and adduction. There is vallecular, piriform sinus and pharyngeal wall residue. There is laryngeal penetration with trace aspiration. Cervical/esophageal stage: Adequate function. IMPRESSION: Pharyngeal dysphagia with laryngeal penetration and trace aspiration Please correlate [facility] speech pathologist findings and specific feeding recommendations. Reviewed, dictated and finalized at location A. IMPRESSION: Pharyngeal dysphagia with laryngeal penetration and trace aspiratio n Please correlate with speech pathologist findings and specific feeding recom mendations.
--- NOTE | ~2024-10-23 | MR_ITS ---
EXAMINATION: MR brain/brain stem wo/w con DATE: 10/25/2024 12:57 INDICATION: Multiple sclerosis TECHNIQUE: Magnetic resonance imaging (MRI) of the brain and brainstem was performed without and with 10 mL ProHance intravenous contrast. Sequences included sagittal and axial T1-weighted FLAIR, axial T1-weighted FSE, axial diffusion-weighted FS EPI, sagittal T2-weighted FLAIR, axial 3D SWAN, axial T2 -weighted FLAIR Propeller, and axial T2-weighted Propeller. Postcontrast sequences included axial, co anayeli, and sagittal T1-weighted FSE. Apparent diffusion coefficient (ADC) maps were created. COMPARISON: None. FINDINGS: There are no areas of restricted diffusion to suggest acute infarction. There are 2 flat T1 hyperinte nse lipomas along the falx between the frontal lobes. No intracranial hemorrhage or other abnormal in tracranial mass lesion. There is extensive nonspecific increased T2-weighted signal intensity in the cerebral white matter, essentially confluent in the periventricular white matter. There are no intrap arenchymal signal abnormalities seen on the other pulse sequences. Symmetric prominence of the sulci and ventricles consistent with mild to moderate age-appropriate diffuse cerebral volume loss. There a re no abnormal extra-axial fluid collections. Flow voids are seen in the cerebral arteries on the T2- weighted sequences consistent with their expected patency. Right vertebral artery is dominant. Mild m ucosal thickening the ethmoid sinuses. Visualized orbits and soft tissues are unremarkable. There are no areas of abnormal enhancement on the post contrast images. IMPRESSION: 1. No acute intracranial process. 2. Extensive cerebral white matter T2 hyperintensity symmetric confluent throughout the bilateral per iventricular white matter most likely sequela of chronic small vessel ischemic disease although super imposed multiple sclerosis cannot be excluded. Reviewed, dictated and finalized at location A. IMPRESSION: 1. No acute intracranial process. 2. Extensive cerebral white matter T2 hyperintensity symmetric confluent throug hout the bilateral periventricular white matter most likely sequela of chronic small vessel ischemic disease although superimposed multiple sclerosis cannot b e excluded.
--- NOTE | 2024-10-23 11:43 | ECG_ITS ---
Test Date: 2024-10-23 11:39:22 Measurements Intervals [place] Rate: 118 P: 45 HI: 128 QRS: -42 QRSD: 76 T: 14 QT: 309 QTc: 434 Interpretive Statements SINUS TACHYCARDIA POSSIBLE LEFT ATRIAL ENLARGEMENT DELAYED PRECORDIAL R/S TRANSITION BASELINE ARTIFACT- V1-V2 ABNORMAL ECG Compared to ECG 06/29/2024 18:40:13 NO SIGNIFICANT CHANGE Electronically Signed On 10-23-2024 12:05:12 CDT by Huber Brunson D.O.
[2024-10-23 12:00] LABS: Basophils Absolute Auto 0.1 K/mm3 (0.0-0.1); Basophils Percent Auto 0.5 % (0.2-1.2); Eosinophils Absolute Auto 0.3 K/mm3 (0-0.3); Eosinophils Percent Auto 1.9 % (0-4.4); Immature Granulocyte Absolute 0.07 K/mm3 (0.00-0.031); Immature Granulocyte Percent A 0.5 % (0-0.5); Mean Corpuscular HGB Conc 34.3 g/dl (32-36); Mean Corpuscular Hemoglobin 27.3 pg (26-34); Mean Corpuscular Volume 79.7 fl (80-100); Mean Platelet Volume 11.6 fl (7.4-10.4); Monocytes Absolute Auto 0.8 K/mm3 (0.1-0.6); Monocytes Percent Auto 6.2 % (2.6-8.5); Neutrophils Absolute Auto 11.3 K/mm3 (1.3-6.7); Neutrophils Percent Auto 84.9 % (45.5-73.1); Platelet Count Result 356 k/mm3 (150-375); Red Blood Count 4.39 M/mm3 (4.2-5.4); Red Cell Distribution Width 16.5 % (11.5-14.5); White Blood Count 13.3 K/mm3 (4.5-10.0)
[2024-10-23] MEDS: ALBUTEROL SULFATE NEB 2.5 MG/3 ML INH 10 MG INHALATION (12:21)
[2024-10-23] MEDS: IPRATROPIUM BR 0.02% INH SOLN 0.5 MG/2.5 ML VIAL 1 MG INHALATION (12:21)
--- NOTE | 2024-10-23 12:22 | ED_ITS ---
HPI - General Adult General Chief complaint: Unspecified Stated complaint: pain all over Time Seen by Provider: 10/23/24 11:43 History of Present Illness HPI narrative: Patient is a 64-year-old female who presents ER with cough difficulty swallowing according to her son who is her primary caregiver and POA. Patient is bedbound/debilitated due to MS. She has been having increasing stiffness and pain over last few days and is not transferring into her wheelchair. She has been coughing up oral medications. She has not been eating or drinking she is atypical for. She does have some gurgling respirations and he is concerned she may have aspirated. Patient is awake alert but only oriented to self and place. Related Data Home Medications ?Medication ?Instructions ?Recorded ?Confirmed ?Last Taken ?Type polyethylene glycol 3350 17 4 g PO DAILY 10/23/24 10/23/24 Unknown History gram/dose oral powder (ClearLax) Allergies Allergy/AdvReac Type Severity Reaction Status Date / Time Seasonal Allergies Allergy Mild itchiness Uncoded 10/21/24 12:45 Review of Systems 2 Review of Systems: ROS unobtainable: Yes unobtainable due to mental status [facility] Past Medical History Medical History (Updated 10/23/24 @ 18:15 by Yaw Matt MD) ESTEFANÍA (acute kidney injury) Venous insufficiency of lower extremity Scoliosis History of ectopic Paroxysmal atrial fibrillation Multiple sclerosis (1997) Hypertension Cellulitis Of the left lower extreme Surgical History Surgical History History of 2 sections Family History Family History Father Cerebrovascular accident Hypertension CAD (coronary artery disease) Social History Social History Social History: The patient is lives with her son for the last 3 years until her recent hospitalization in May at which time she was discharged to [facility] for rehab. She raised 2 sons. She is currently living with her oldest son. At baseline the patient can report the walk. Code status: Full code Surrogate decision maker: Olivier Gonzalez (son) Smoking status: Never smoker Second hand tobacco smoke exposure: No Alcohol intake: never Substance use: never Substance use type: does not use Do You Feel Safe in your Home?: Yes Lack of Transportation: No Lack of Food: Never True Current Housing: I Have Housing Concerned About Future Housing: No Difficulty Paying Gas/Electric Bills: No Difficulty Paying for Meds: No Currently Unemployed: No Education: High School Diploma/GED Difficulty w/ Childcare or Family Care: Decline to Answer Spiritual care concerns: No Exam 2 Narrative: GENERAL: Chronically ill-appearing, frail, and in no acute distress. HEAD: Normocephalic, atraumatic. EYES: PERRL and EOMI. ENT: Thick dried spent to the tongue. NECK: Supple. CHEST: Expiratory wheezing bilaterally. No respiratory distress. HEART: Tachycardic regular. Normal peripheral pulses. ABDOMEN: Soft, nontender, nondistended. SKIN: Warm, dry. Large sacral decubitus ulcer without cellulitis or purulent drainage. No foul odor. No bone exposure. NEURO: Alert and oriented x2. PSYCH: Normal mood and affect. Course Course Emergency Course: Patient receiving 30 milliliter/kilogram IV fluid bolus. Blood cultured. IV antibiotics ordered and provided. Admit to hospitalist service. Vital Signs Vital signs: Vital Signs Temperature 97.6 F 10/23/24 11:31 Pulse Rate 116 H 10/23/24 11:31 Respiratory Rate 23 H 10/23/24 11:31 Blood Pressure 129/92 H 10/23/24 11:31 Pulse Oximetry 97 10/23/24 11:31 Oxygen Delivery Room Air 10/23/24 11:31 Temperature 98.3 F 10/23/24 15:53 Pulse Rate 126 H 10/23/24 15:53 Respiratory Rate 20 10/23/24 15:53 Blood Pressure 131/77 10/23/24 15:53 Pulse Oximetry 98 10/23/24 15:53 Oxygen Delivery Room Air 10/23/24 11:31 Medical Decision Making Vital Signs Vital Signs: Vital Signs Temperature 97.6 F 10/23/24 11:31 Pulse Rate 116 H 10/23/24 11:31 Respiratory Rate 23 H 10/23/24 11:31 Blood Pressure 129/92 H 10/23/24 11:31 Pulse Oximetry 97 10/23/24 11:31 Oxygen Delivery Room Air 10/23/24 11:31 Temperature 98.3 F 10/23/24 15:53 Pulse Rate 126 H 10/23/24 15:53 Respiratory Rate 20 10/23/24 15:53 Blood Pressure 131/77 10/23/24 15:53 Pulse Oximetry 98 10/23/24 15:53 Oxygen Delivery Room Air 10/23/24 11:31 Lab Data 10/23/24 11:45 10/23/24 11:45 Labs: Lab Results 10/23/24 10/23/24 10/23/24 Range/Units 11:45 11:52 12:19 WBC 13.3 H (4.5-10.0) K/mm3 RBC 4.39 (4.2-5.4) M/mm3 Hgb 12.0 (12.0-15.0) g/dL Hct 35.0 L (37.0-47.0) % MCV 79.7 L (80-100) fl MCH 27.3 (26-34) pg MCHC 34.3 (32-36) g/dl RDW 16.5 H (11.5-14.5) % Plt Count 356 (150-375) k/mm3 MPV 11.6 H (7.4-10.4) fl Immature Gran % (Auto) 0.5 (0-0.5) % Neut % (Auto) 84.9 H (45.5-73.1) % Lymph % (Auto) 6.0 L (18.3-44.2) % [place] % (Auto) 6.2 (2.6-8.5) % Eos % (Auto) 1.9 (0-4.4) % Baso % (Auto) 0.5 (0.2-1.2) % Lymph # (Auto) 0.80 L (0.9-3.2) K/mm3 [place] # (Auto) 0.8 H (0.1-0.6) K/mm3 Eos # (Auto) 0.3 (0-0.3) K/mm3 Baso # (Auto) 0.1 (0.0-0.1) K/mm3 Abs Immat Gran (auto) 0.07 H (0.00-0.031) K/mm3 Absolute Neuts (auto) 11.3 H (1.3-6.7) K/mm3 Absolute Nucleated RBC 0.000 (0.0-0.012) K/mm3 Nucleated RBC % 0.0 (0.0-0.2) % Sodium 150 H (137-145) mmol/L Potassium 3.8 (3.4-5.0) mmol/L Chloride 112 H (98-107) mmol/L Carbon Dioxide 24 (22-30) mmol/L Anion Gap 14 H (4-12) mmol/L BUN 53 H D (7-17) mg/dL Creatinine 1.29 H (0.7-1.0) mg/dL Estim Creat Clear Calc 32 ml/min Estimated GFR 41 L (59 - ) Glucose 106 (65-110) mg/dL Lactic Acid 1.7 (0.7-2.0) mmol/L Calcium 10.5 H (8.4-10.2) mg/dL Total Bilirubin 0.6 (0.2-1.3) mg/dL AST 29 (14-36) U/L ALT 17 (6-35) U/L Alkaline Phosphatase 83 (38-126) U/L NT-Pro-B Natriuret Pep 123 H (19.9-100) pg/mL Total Protein 8.8 H (6.3-8.2) g/dL Albumin 3.7 (3.5-5.1) g/dL Urine Color Yellow (Yellow) Urine Appearance Turbid H (Clear) Urine pH 8.0 (5.0-9.0) Ur Specific [place] 1.017 (1.001-1.035) Urine Protein 2+ H (Negative) mg/dL Urine Glucose (UA) Negative (Negative) mg/dL Urine Ketones 1+ H (Negative) mg/dL Ur Blood (Man) 1+ H (Negative) Urine Nitrate Negative (Negative) Urine Bilirubin Negative (Negative) Urine Urobilinogen 1.0 (<2.0) mg/dL Add Ur Microanalysis Reviewed Leukocyte Esterase Rfl 3+ H (Negative) CHAI/UL Urine RBC 6-10 H (0-2) /hpf Urine WBC 51-100 H (0-3) /hpf Ur Squamous Epith Cells Moderate (Few) /hpf Triple Phos Crystals Present H (None) /hpf Amorphous Sediment Moderate H (None) Urine Bacteria 1+ /hpf Urine Casts >20 Imaging Data Radiologist's impression: ITS Impressions Chest X-Ray 10/23/24 13:30 Impression: 1: Mild interstitial edema. ECG Data EKG #1: ECG completion date: 10/23/24 ECG completion time: 11:39 EKG Interpretation: tachycardia (118), sinus rhythm, non-specific ST changes, normal QRS and normal QT Critical Care Time Critical Care Time Critical Care Time: Yes Total Critical Care Time: 35 Discharge Plan Discharge Clinical Impression: [id number] kidney injury, Pneumonia, Hypernatremia Patient Disposition: Still a Patient Condition: Serious
[2024-10-23 12:27] LABS: Alanine Aminotransferase 17 U/L (6-35); Albumin Level 3.7 g/dL (3.5-5.1); Alkaline Phosphatase 83 U/L (38-126); Anion Gap 14 mmol/L (4-12); Aspartate Amino Transferase 29 U/L (14-36); Bilirubin,Total 0.6 mg/dL (0.2-1.3); Blood Urea Nitrogen 53 mg/dL (7-17); Calcium 10.5 mg/dL (8.4-10.2); Carbon Dioxide 24 mmol/L (22-30); Chloride 112 mmol/L (98-107); Estimated CRCL calculation 32 ml/min; Estimated Glomerular Filt Rate 41; Glucose 106 mg/dL (65-110); Potassium 3.8 mmol/L (3.4-5.0); Sodium 150 mmol/L (137-145); Total Protein 8.8 g/dL (6.3-8.2)
[2024-10-23 12:27] LABS: Lactic Acid Reflex 1.7 mmol/L (0.7-2.0)
[2024-10-23 12:46] LABS: Add Urine Microscopic? YES; Amorphous Sediment Urine Moderate; Appearance Urine Turbid (Clear); Bilirubin Urine Negative (Negative); Blood Urine 1+ (Negative); Color Urine Yellow (Yellow); Glucose Urine UA Negative (Negative); Ketones Urine 1+ mg/dL (Negative); Leukocyte Esterase Ur 3+ LEU/UL (Negative); Need Manual Microscopic Reviewed; Nitrate Urine Negative (Negative); Non Pathogenic Casts >20; Protein Urine 2+ mg/dL (Negative); Specific Grav Ur 1.017 (1.001-1.035); Squamous Epithelial Cell Urine Moderate /hpf (Few); Triple Phosphate Crystal Urine Present /hpf; WBC Urine 51-100 /hpf (0-3)
[2024-10-23 12:47] LABS: Bacteria Urine 1+ /hpf
[2024-10-23] MEDS: SODIUM CHLORIDE 0.9% IV 600 ML 999 ML IV CONT (12:55)
[2024-10-23] MEDS: SODIUM CHLORIDE 0.9% IV 1,000 ML 999 ML IV CONT (12:55)
--- OUTSIDE RECORDS SUMMARY | 2024-10-23 14:25 | XMS_ITS | Clinical Summary ---
Author Organization Unknown Care Team Providers Care Medical Reception Specialist Name Role Phone FAITH AJMELIDA VENTURA Unavailable U oswaldo TOMLINSON RN, ANTONIETA Unavailable Unavailabl e MARIE PT, MARGARET Unavailable Unavailable MANOMAN OT, REBECA HERNANDEZ Unavailable Unavai lable LUPCHO RESIDENTIAL PROGRAM DIRECTOR/MALAVE, JEANNE Unavailable Unavaila ble WENDY KUMARN, BRADLEY Unavailable Unavailable GLENN WOOD BUCKER, SCOTT Unavailable Unavailabl e Payers Payer Name Policy Type Policy Number Effective Date Expira tion Date MEDICARE.[facility] [id number] Problems Condition Name Condition Details Condition Category Status Onset Date Resolution Date Last Treatment Date Treating Clinician Comments MULTIPLE SCLEROSIS Active 10-04 00:00: 00 ESSENTIAL (PRIMARY) HYPERTENSION Active 10-04 00:00: 00 CELLULITIS OF LEFT LOWER LIMB Active 10-04 00:00: 00 VENOUS INSUFFICIENC Y (CHRONIC) (PERIPHERAL) Active 10-04 00:00: 00 PAROXYSMAL ATRIAL FIBRILLATION Active 10-04 00:00: 00 HERPESVIRAL VULVOVAGINIT IS Active 10-04 00:00: 00 METABOLIC ENCEPHALOPAT HY Active 10-04 00:00: 00 UNSPECIFIED PROTEIN-CRYSTAL OMKAR MALNUTRITION Active 10-04 00:00: 00 VITAMIN D DEFICIENCY, UNSPECIFIED Active 10-04 00:00: 00 DYSPHAGIA, OROPHARYNGEA L PHASE Active 10-04 00:00: 00 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 DIFFICILE, RECURRENT Active 1- 00:00: 00 PERSONAL HISTORY OF URINARY (TRACT) INFECTIONS Active 10-04 00:00: 00 HISTORY OF FALLING Active 10-04 00:00: 00 Allergies, Adverse Reactions, Alerts Allergy Name Allergy Type Status Severity Reaction(s) Onset Date Inactive Date Treating Clinician Comments NO KNOWN ALLERGIES Propensity to adverse reactions Active 10-04 11:35: 36 Immunizations Ordered Immunization Name Filled Immunization Name Date Status Comments Refusal Reason DOSE #2, COVID-19 VACCINE 2020-06-24 00:00:00 Vital Signs Vital Name Observation Time Observation Value Commen ts Temperature 2024-10-18 11:12:00.000 98 [degF] Temperature 2024-10-17 11:14:00.000 97.9 [degF] Temperature 2024-10-16 10:30:00.000 97.2 [degF] Temperature 2024-10-11 12:30:00.000 98.3 [degF] Temperature 2024-10-11 10:02:00.000 98.3 [degF] Temperature 2024-10-09 13:48:00.000 98.1 [degF] Temperature 2024-10-08 10:47:00.000 96.2 [degF] Temperature 2024-10-04 11:02:00.000 98.2 [degF] BMI (%) 2024-10-04 11:02:00.000 22 kg/m2 Height 2024-10-04 11:02:00.000 62 [in_us] Pulse 2024-10-18 11:12:00.000 91 /min Pulse 2024-10-17 11:14:00.000 91 /min Pulse 2024-10-16 10:30:00.000 100 /min Pulse 2024-10-11 12:30:00.000 97 /min Pulse 2024-10-11 10:02:00.000 97 /min Pulse 2024-10-09 13:48:00.000 96 /min Pulse 2024-10-08 10:47:00.000 60 /min Pulse 2024-10-04 11:02:00.000 96 /min O2 Saturation (%) 2024-10-18 11:13:00.000 95 % O2 Saturation (%) 2024-10-17 11:14:00.000 98 % O2 Saturation (%) 2024-10-16 10:32:00.000 95 % O2 Saturation (%) 2024-10-11 12:30:00.000 98 % O2 Saturation (%) 2024-10-11 10:04:00.000 95 % O2 Saturation (%) 2024-10-09 13:48:00.000 95 % O2 Saturation (%) 2024-10-08 10:47:00.000 93 % O2 Saturation (%) 2024-10-04 11:02:00.000 98 % Respirations 2024-10-18 11:12:00.000 18 /min Respirations 2024-10-17 11:14:00.000 18 /min Respirations 2024-10-16 10:30:00.000 18 /min Respirations 2024-10-11 12:30:00.000 18 /min Respirations 2024-10-11 10:02:00.000 18 /min Respirations 2024-10-09 13:48:00.000 18 /min Respirations 2024-10-08 10:47:00.000 16 /min Respirations 2024-10-04 11:02:00.000 16 /min Weight (lbs) 2024-10-04 11:02:00.000 125 [lb_av] Systolic Blood Pressure 2024-10-18 11:12:00.000 104 mm [Hg] Systolic Blood Pressure 2024-10-17 11:14:00.000 118 mm [Hg] Systolic Blood Pressure 2024-10-16 10:30:00.000 124 mm [Hg] Systolic Blood Pressure 2024-10-11 12:30:00.000 112 mm [Hg] Systolic Blood Pressure 2024-10-11 10:02:00.000 112 mm [Hg] Systolic Blood Pressure 2024-10-09 13:48:00.000 134 mm [Hg] Systolic Blood Pressure 2024-10-08 10:47:00.000 140 mm [Hg] Systolic Blood Pressure 2024-10-04 11:02:00.000 150 mm [Hg] Diastolic Blood Pressure 2024-10-18 11:12:00.000 64 mm [Hg] Diastolic Blood Pressure 2024-10-17 11:14:00.000 78 mm [Hg] Diastolic Blood Pressure 2024-10-16 10:30:00.000 78 mm [Hg] Diastolic Blood Pressure 2024-10-11 12:30:00.000 80 mm [Hg] Diastolic Blood Pressure 2024-10-11 10:02:00.000 80 mm [Hg] Diastolic Blood Pressure 2024-10-09 13:48:00.000 76 mm [Hg] Diastolic Blood Pressure 2024-10-08 10:47:00.000 74 mm [Hg] Diastolic Blood Pressure 2024-10-04 11:02:00.000 88 mm [Hg] Plan of Treatment Planned Activity Planned Date Details Comments Future Scheduled Test RN TO OBSE RVE, ASSESS, EVALUATE, AND DEVELOP AN INDIVIDUALIZED PLAN OF CARE. AGENCY MAY ACCEPT ORDERS FROM CONSULTING PHYSICIANS. RN TO OBSERVE AND ASSESS, HARNESS PULLER/MARINE SCIENTIST TO OBSERVE FOR RISK FOR FALLS AND INSTRUCT IN FALL PREVENTION, HOME SAFETY, MEDICATION MANAGEMENT, INFECTION PREVENTION, AND NUTRITION MANAGEMENT. RN/HARNESS PULLER/MARINE SCIENTIST NURSE MAY PERFORM O2 SATURATION LEVEL. RN TO ASSESS/HARNESS PULLER TO OBSERVE PATIENT, WITH NOTIFICATION TO THE PHYSICIAN IF SATURATION IS 90% IN THE ABSENCE OF MORE SPECIFIC PARAMETERS FROM THE PHYSICIAN. AGENCY MAY PERFORM A RESUMPTION OF CARE VISIT FOLLOWING ANY HOSPITAL ADMISSION. RN/HARNESS PULLER/MARINE SCIENTIST TO MONITOR CO-MORBID CONDITIONS LISTED ON THE PLAN OF CARE AND ANY NEW CONDITIONS THAT PRESENT THEMSELVES DURING THIS EPISODE TO IDENTIFY CHANGES AND INTERVENE TO MINIMIZE COMPLICATIONS. [code = RN TO OBSERVE, ASSESS, EVALUATE, AND DEVELOP AN INDIVIDUALIZED PLAN OF CARE. AGENCY MAY ACCEPT ORDERS FROM CONSULTING PHYSICIANS. RN TO OBSERVE AND ASSESS, HARNESS PULLER/MARINE SCIENTIST TO OBSERVE FOR RISK FOR FALLS AND INSTRUCT IN FALL PREVENTION, HOME SAFETY, MEDICATION MANAGEMENT, INFECTION PREVENTION, AND NUTRITION MANAGEMENT. RN/HARNESS PULLER/MARINE SCIENTIST NURSE MAY PERFORM O2 SATURATION LEVEL. RN TO ASSESS/HARNESS PULLER TO OBSERVE PATIENT, WITH NOTIFICATION TO THE PHYSICIAN IF SATURATION IS 90% IN THE ABSENCE OF MORE SPECIFIC PARAMETERS FROM THE PHYSICIAN. AGENCY MAY PERFORM A RESUMPTION OF CARE VISIT FOLLOWING ANY HOSPITAL ADMISSION. RN/HARNESS PULLER/MARINE SCIENTIST TO MONITOR CO-MORBID CONDITIONS LISTED ON THE PLAN OF CARE AND ANY NEW CONDITIONS THAT PRESENT THEMSELVES DURING THIS EPISODE TO IDENTIFY CHANGES AND INTERVENE TO MINIMIZE COMPLICATIONS.] Future Scheduled Test MEDICATION MANAGEMENT; RN/HARNESS PULLER/MARINE SCIENTIST TO REVIEW MEDICATIONS FOR INTERACTIONS, EFFECTIVENESS OF DRUG THERAPY, AND SIGNS/SYMPTOMS OF ADVERSE REACTIONS. MAY INSTRUCT AND REINFORCE MEDICATION TEACHING RELATED TO THE USE OF MEDICATIONS, DOSAGE, FREQUENCY, PURPOSE, SIDE EFFECTS, AND TO REPORT COMPLICATIONS. [code = MEDICATION MANAGEMENT; RN/HARNESS PULLER/MARINE SCIENTIST TO REVIEW MEDICATIONS FOR INTERACTIONS, EFFECTIVENESS OF DRUG THERAPY, AND SIGNS/SYMPTOMS OF ADVERSE REACTIONS. MAY INSTRUCT AND REINFORCE MEDICATION TEACHING RELATED TO THE USE OF MEDICATIONS, DOSAGE, FREQUENCY, PURPOSE, SIDE EFFECTS, AND TO REPORT COMPLICATIONS.] Future Scheduled Test RISK FOR H OSPITALIZATION; RN TO ASSESS/TEACH, MARINE SCIENTIST/HARNESS PULLER TO OBSERVE/TEACH PATIENT/CAREGIVER ON RISK FOR HOSPITALIZATION/EMERGENCY ROOM VISITS, TEACH SIGNS AND SYMPTOMS THAT PUT PATIENT AT RISK, WHEN TO NOTIFY NURSE/PHYSICIAN OF COMPLICATIONS/DECLINE, AND WHEN TO CALL 911. [code = RISK FOR HOSPITALIZATION; RN TO ASSESS/TEACH, MARINE SCIENTIST/HARNESS PULLER TO OBSERVE/TEACH PATIENT/CAREGIVER ON RISK FOR HOSPITALIZATION/EMERGENCY ROOM VISITS, TEACH SIGNS AND SYMPTOMS THAT PUT PATIENT AT RISK, WHEN TO NOTIFY NURSE/PHYSICIAN OF COMPLICATIONS/DECLINE, AND WHEN TO CALL 911.] Future Scheduled Test SKIN INTEG RITY RN TO ASSESS AND TEACH, HARNESS PULLER/MARINE SCIENTIST TO OBSERVE AND TEACH INTEGUMENTARY STATUS TO IDENTIFY CHANGES AND INTERVENE TO MINIMIZE COMPLICATIONS. PROVIDE SKILLED TEACHING OF GENERAL WOUND AND SKIN CARE AND PREVENTION RELATED TO POTENTIAL FOR OR ACTUAL ALTERED SKIN INTEGRITY [code = SKIN INTEGRITY RN TO ASSESS AND TEACH, HARNESS PULLER/MARINE SCIENTIST TO OBSERVE AND TEACH INTEGUMENTARY STATUS TO IDENTIFY CHANGES AND INTERVENE TO MINIMIZE COMPLICATIONS. PROVIDE SKILLED TEACHING OF GENERAL WOUND AND SKIN CARE AND PREVENTION RELATED TO POTENTIAL FOR OR ACTUAL ALTERED SKIN INTEGRITY ] Future Scheduled Test PAIN MANAG EMENT; RN TO ASSESS AND TEACH, MARINE SCIENTIST/HARNESS PULLER TO OBSERVE AND TEACH AND PROVIDE EDUCATION ON PAIN MANAGEMENT TECHNIQUES. [code = PAIN MANAGEMENT; RN TO ASSESS AND TEACH, MARINE SCIENTIST/HARNESS PULLER TO OBSERVE AND TEACH AND PROVIDE EDUCATION ON PAIN MANAGEMENT TECHNIQUES.] Future Scheduled Test GENITOURIN [place]ON MANAGEMENT; RN TO ASSESS AND TEACH, HARNESS PULLER/MARINE SCIENTIST TO OBSERVE AND TEACH RELATED TO ALTERED GENITOURINARY STATUS TO MINIMIZE COMPLICATIONS AND REDUCE HOSPITALIZATION. [code = GENITOURINARY MANAGEMENT; RN TO ASSESS AND TEACH, HARNESS PULLER/MARINE SCIENTIST TO OBSERVE AND TEACH RELATED TO ALTERED GENITOURINARY STATUS TO MINIMIZE COMPLICATIONS AND REDUCE HOSPITALIZATION.] Future Scheduled Test URINARY IN CONTINENCE MANAGEMENT; RN TO ASSESS AND TEACH, HARNESS PULLER/LVNTO OBSERVE AND TEACH MANAGEMENT OF URINARY INCONTINENCE. TEACH/INSTRUCT ON PREVENTING INFECTION AND SKIN BREAKDOWN. RN/HARNESS PULLER/MARINE SCIENTIST MAY INSTRUCT IN BLADDER TRAINING PROGRAM INDICATED. [code = URINARY INCONTINENCE MANAGEMENT; RN TO ASSESS AND TEACH, HARNESS PULLER/LVNTO OBSERVE AND TEACH MANAGEMENT OF URINARY INCONTINENCE. TEACH/INSTRUCT ON PREVENTING INFECTION AND SKIN BREAKDOWN. RN/HARNESS PULLER/MARINE SCIENTIST MAY INSTRUCT IN BLADDER TRAINING PROGRAM INDICATED.] Future Scheduled Test FALL REDUC TION MANAGEMENT; RN TO ASSESS AND OBSERVE, HARNESS PULLER/MARINE SCIENTIST TO OBSERVE FALL RISK FACTORS AND EDUCATE PATIENT/CAREGIVER ON STRATEGIES TO MINIMIZE THE RISK OF FALLING. [code = FALL REDUCTION MANAGEMENT; RN TO ASSESS AND OBSERVE, HARNESS PULLER/MARINE SCIENTIST TO OBSERVE FALL RISK FACTORS AND EDUCATE PATIENT/CAREGIVER ON STRATEGIES TO MINIMIZE THE RISK OF FALLING.] Future Scheduled Test PHYSICAL T HERAPIST TO EVALUATE FOR INCREASED WEAKNESS [code = PHYSICAL THERAPIST TO EVALUATE FOR INCREASED WEAKNESS] Future Scheduled Test OCCUPATION AL THERAPIST TO EVALUATE FOR FUNCTIONAL DECLINE [code = OCCUPATIONAL THERAPIST TO EVALUATE FOR FUNCTIONAL DECLINE] Goal Patient Goal - UNABLET TO ST ATE GOALS. Goal Provider Goal - A PLAN OF CARE WILL BE ESTABLISHED THAT MEETS THE PATIENTS NEEDS. PATIENT WILL DEMONSTRATE OXYGEN SATURATION WITHIN NORMAL LIMITS OR PATIENTS OPTIMAL LEVEL ESTABLISHED BY THE PHYSICIAN THROUGHOUT CARE. CHANGES TO CO-MORBID CONDITIONS AND ANY NEW CONDITIONS WILL BE IDENTIFIED AND REPORTED TO THE PHYSICIAN. Goal Provider Goal - PATIENT/CAREGIVER TO VERBALIZE, AND CONSISTENTLY DEMONSTRATE EFFECTIVE, SAFE MANAGEMENT OF MEDICATION INCLUDING KNOWLEDGE OF EFFECTIVENESS, POTENTIAL SIDE EFFECTS AND DRUG REACTIONS AND WHEN TO CONTACT THE APPROPRIATE CARE PROVIDER. PATIENT/CAREGIVER WILL BE ABLE TO VERBALIZE UNDERSTANDING OF MEDICATION REGIMEN AND ACCURATELY TAKE MEDICATIONS PRESCRIBED WITHOUT ADVERSE EFFECTS BY END OF EPISODE Goal Provider Goal - PATIENT/CAREGIVER WILL VERBALIZE UNDERSTANDING OF SIGNS AND SYMPTOMS THAT PUT THE PATIENT AT RISK FOR HOSPITALIZATION /EMERGENCY ROOM VISITS, WHEN TO NOTIFY NURSE/PHYSICIAN OF COMPLICATIONS/DECLINE AND WHEN TO CALL 911. Goal Provider Goal - CHANGES IN SKIN INTEGRITY STATUS WILL BE IDENTIFIED AND REPORTED TO THE PHYSICIAN FOR PROMPT INTERVENTION. PATIENT / CAREGIVER WILL VERBALIZE/DEMONSTRATE ADEQUATE KNOWLEDGE OF INTEGUMENTARY STATUS AND APPROPRIATE MEASURES TO PROMOTE SKIN INTEGRITY AND PREVENT INJURY BY END OF EPISODE Goal Provider Goal - PATIENT / CAREGIVER WILL VERBALIZE / DEMONSTRATE UNDERSTANDING OF PAIN CONTROL MEASURES BY END OF EPISODE Goal Provider Goal - PATIENT / CAREGIVER WILL VERBALIZE/DEMONSTRATE UNDERSTANDING OF MEASURES TO MANAGE ALTERED GENITOURINARY STATUS BY END OF EPISODE. Goal Provider Goal - PATIENT/CAREGIVER WILL VERBALIZE/DEMONSTRATE UNDERSTANDING OF CARE AND MANAGEMENT OF URINARY INCONTINENCE BY END OF EPISODE Goal Provider Goal - PATIENT/CAREGIVER WILL VERBALIZE/DEMONSTRATE UNDERSTANDING OF FALL RISK FACTORS AND IMPLEMENT STRATEGIES TO MINIMIZE FALL RISK. PATIENT/CAREGIVER WILL VERBALIZE/DEMONSTRATE AN ABILITY TO ADHERE TO FALL REDUCTION SELF-MANAGEMENT AND LIFE-STYLE CHANGES BY END OF EPISODE Goal Provider Goal - Goal Provider Goal - Encounters Start Date/Time End Date/Time Encounter Type Admission Type Attending [facility] Department Encounter ID Discharge Date Discharge Status Discharge Condition Discharge Reason Percent Goals Met 2024-10-04 00:00:00 2024-12-02 00:00:00 Outpatient NEW ADMISSION ANTONIETA TOMLINSON [facility] [id number] 33.33
--- OUTSIDE RECORDS SUMMARY | 2024-10-23 14:26 | XMS_ITS | Clinical Summary ---
Author Organization Unknown Care Team Providers Care Pricing Supervisor Name Role Phone FAITH AJMELIDA VENTURA Unavailable U oswaldo TOMLINSON RN, ANTONIETA Unavailable Unavailabl e MARIE PT, MARGARET Unavailable Unavailable MANOMAN OT, REBECA HERNANDEZ Unavailable Unavai lable LUPCHO DIESEL TRACTOR ENGINE MECHANIC/MALAVE, JEANNE Unavailable Unavaila ble WENDY KUMARN, BRADLEY Unavailable Unavailable GLENN EDITOR GREETING CARD, SCOTT Unavailable Unavailabl e Payers Payer Name Policy Type Policy Number Effective Date Expira tion Date MEDICARE.[facility] [id number] Problems Condition Name Condition Details Condition Category [...] CONSULTING PHYSICIANS. RN TO OBSERVE AND ASSESS, AUTOMATED ACCESS SYSTEMS TECHNICIAN/LANDSCAPE ARCHITECTURE TEACHER TO OBSERVE FOR RISK FOR FALLS AND INSTRUCT IN FALL PREVENTION, HOME SAFETY, MEDICATION MANAGEMENT, INFECTION PREVENTION, AND NUTRITION MANAGEMENT. RN/AUTOMATED ACCESS SYSTEMS TECHNICIAN/LANDSCAPE ARCHITECTURE TEACHER NURSE MAY PERFORM O2 SATURATION LEVEL. RN TO ASSESS/AUTOMATED ACCESS SYSTEMS TECHNICIAN TO OBSERVE PATIENT, WITH NOTIFICATION TO THE PHYSICIAN IF SATURATION IS 90% IN THE ABSENCE OF MORE SPECIFIC PARAMETERS FROM THE PHYSICIAN. AGENCY MAY PERFORM A RESUMPTION OF CARE VISIT FOLLOWING ANY HOSPITAL ADMISSION. RN/AUTOMATED ACCESS SYSTEMS TECHNICIAN/LANDSCAPE ARCHITECTURE TEACHER TO MONITOR CO-MORBID CONDITIONS LISTED ON THE PLAN OF CARE AND ANY NEW CONDITIONS THAT PRESENT THEMSELVES DURING THIS EPISODE TO IDENTIFY CHANGES AND INTERVENE TO MINIMIZE COMPLICATIONS. [code = RN TO OBSERVE, ASSESS, EVALUATE, AND DEVELOP AN INDIVIDUALIZED PLAN OF CARE. AGENCY MAY ACCEPT ORDERS FROM CONSULTING PHYSICIANS. RN TO OBSERVE AND ASSESS, AUTOMATED ACCESS SYSTEMS TECHNICIAN/LANDSCAPE ARCHITECTURE TEACHER TO OBSERVE FOR RISK FOR FALLS AND INSTRUCT IN FALL PREVENTION, HOME SAFETY, MEDICATION MANAGEMENT, INFECTION PREVENTION, AND NUTRITION MANAGEMENT. RN/AUTOMATED ACCESS SYSTEMS TECHNICIAN/LANDSCAPE ARCHITECTURE TEACHER NURSE MAY PERFORM O2 SATURATION LEVEL. RN TO ASSESS/AUTOMATED ACCESS SYSTEMS TECHNICIAN TO OBSERVE PATIENT, WITH NOTIFICATION TO THE PHYSICIAN IF SATURATION IS 90% IN THE ABSENCE OF MORE SPECIFIC PARAMETERS FROM THE PHYSICIAN. AGENCY MAY PERFORM A RESUMPTION OF CARE VISIT FOLLOWING ANY HOSPITAL ADMISSION. RN/AUTOMATED ACCESS SYSTEMS TECHNICIAN/LANDSCAPE ARCHITECTURE TEACHER TO MONITOR CO-MORBID CONDITIONS LISTED ON THE PLAN OF CARE AND ANY NEW CONDITIONS THAT PRESENT THEMSELVES DURING THIS EPISODE TO IDENTIFY CHANGES AND INTERVENE TO MINIMIZE COMPLICATIONS.] Future Scheduled Test MEDICATION MANAGEMENT; RN/AUTOMATED ACCESS SYSTEMS TECHNICIAN/LANDSCAPE ARCHITECTURE TEACHER TO REVIEW MEDICATIONS FOR INTERACTIONS, EFFECTIVENESS OF DRUG THERAPY, AND SIGNS/SYMPTOMS OF ADVERSE REACTIONS. MAY INSTRUCT AND REINFORCE MEDICATION TEACHING RELATED TO THE USE OF MEDICATIONS, DOSAGE, FREQUENCY, PURPOSE, SIDE EFFECTS, AND TO REPORT COMPLICATIONS. [code = MEDICATION MANAGEMENT; RN/AUTOMATED ACCESS SYSTEMS TECHNICIAN/LANDSCAPE ARCHITECTURE TEACHER TO REVIEW MEDICATIONS FOR INTERACTIONS, EFFECTIVENESS OF DRUG THERAPY, AND SIGNS/SYMPTOMS OF ADVERSE REACTIONS. MAY INSTRUCT AND REINFORCE MEDICATION TEACHING RELATED TO THE USE OF MEDICATIONS, DOSAGE, FREQUENCY, PURPOSE, SIDE EFFECTS, AND TO REPORT COMPLICATIONS.] Future Scheduled Test RISK FOR H OSPITALIZATION; RN TO ASSESS/TEACH, LANDSCAPE ARCHITECTURE TEACHER/AUTOMATED ACCESS SYSTEMS TECHNICIAN TO OBSERVE/TEACH PATIENT/CAREGIVER ON RISK FOR HOSPITALIZATION/EMERGENCY ROOM VISITS, TEACH SIGNS AND SYMPTOMS THAT PUT PATIENT AT RISK, WHEN TO NOTIFY NURSE/PHYSICIAN OF COMPLICATIONS/DECLINE, AND WHEN TO CALL 911. [code = RISK FOR HOSPITALIZATION; RN TO ASSESS/TEACH, LANDSCAPE ARCHITECTURE TEACHER/AUTOMATED ACCESS SYSTEMS TECHNICIAN TO OBSERVE/TEACH PATIENT/CAREGIVER ON RISK FOR HOSPITALIZATION/EMERGENCY ROOM VISITS, TEACH SIGNS AND SYMPTOMS THAT PUT PATIENT AT RISK, WHEN TO NOTIFY NURSE/PHYSICIAN OF COMPLICATIONS/DECLINE, AND WHEN TO CALL 911.] Future Scheduled Test SKIN INTEG RITY RN TO ASSESS AND TEACH, AUTOMATED ACCESS SYSTEMS TECHNICIAN/LANDSCAPE ARCHITECTURE TEACHER TO OBSERVE AND TEACH INTEGUMENTARY STATUS TO IDENTIFY CHANGES AND INTERVENE TO MINIMIZE COMPLICATIONS. PROVIDE SKILLED TEACHING OF GENERAL WOUND AND SKIN CARE AND PREVENTION RELATED TO POTENTIAL FOR OR ACTUAL ALTERED SKIN INTEGRITY [code = SKIN INTEGRITY RN TO ASSESS AND TEACH, AUTOMATED ACCESS SYSTEMS TECHNICIAN/LANDSCAPE ARCHITECTURE TEACHER TO OBSERVE AND TEACH INTEGUMENTARY STATUS TO IDENTIFY CHANGES AND INTERVENE TO MINIMIZE COMPLICATIONS. PROVIDE SKILLED TEACHING OF GENERAL WOUND AND SKIN CARE AND PREVENTION RELATED TO POTENTIAL FOR OR ACTUAL ALTERED SKIN INTEGRITY ] Future Scheduled Test PAIN MANAG EMENT; RN TO ASSESS AND TEACH, LANDSCAPE ARCHITECTURE TEACHER/AUTOMATED ACCESS SYSTEMS TECHNICIAN TO OBSERVE AND TEACH AND PROVIDE EDUCATION ON PAIN MANAGEMENT TECHNIQUES. [code = PAIN MANAGEMENT; RN TO ASSESS AND TEACH, LANDSCAPE ARCHITECTURE TEACHER/AUTOMATED ACCESS SYSTEMS TECHNICIAN TO OBSERVE AND TEACH AND PROVIDE EDUCATION ON PAIN MANAGEMENT TECHNIQUES.] Future Scheduled Test GENITOURIN [place] MANAGEMENT; RN TO ASSESS AND TEACH, AUTOMATED ACCESS SYSTEMS TECHNICIAN/LANDSCAPE ARCHITECTURE TEACHER TO OBSERVE AND TEACH RELATED TO ALTERED GENITOURINARY STATUS TO MINIMIZE COMPLICATIONS AND REDUCE HOSPITALIZATION. [code = GENITOURINARY MANAGEMENT; RN TO ASSESS AND TEACH, AUTOMATED ACCESS SYSTEMS TECHNICIAN/LANDSCAPE ARCHITECTURE TEACHER TO OBSERVE AND TEACH RELATED TO ALTERED GENITOURINARY STATUS TO MINIMIZE COMPLICATIONS AND REDUCE HOSPITALIZATION.] Future Scheduled Test URINARY IN CONTINENCE MANAGEMENT; RN TO ASSESS AND TEACH, AUTOMATED ACCESS SYSTEMS TECHNICIAN/LVNTO OBSERVE AND TEACH MANAGEMENT OF URINARY INCONTINENCE. TEACH/INSTRUCT ON PREVENTING INFECTION AND SKIN BREAKDOWN. RN/AUTOMATED ACCESS SYSTEMS TECHNICIAN/LANDSCAPE ARCHITECTURE TEACHER MAY INSTRUCT IN BLADDER TRAINING PROGRAM INDICATED. [code = URINARY INCONTINENCE MANAGEMENT; RN TO ASSESS AND TEACH, AUTOMATED ACCESS SYSTEMS TECHNICIAN/LVNTO OBSERVE AND TEACH MANAGEMENT OF URINARY INCONTINENCE. TEACH/INSTRUCT ON PREVENTING INFECTION AND SKIN BREAKDOWN. RN/AUTOMATED ACCESS SYSTEMS TECHNICIAN/LANDSCAPE ARCHITECTURE TEACHER MAY INSTRUCT IN BLADDER TRAINING PROGRAM INDICATED.] Future Scheduled Test FALL REDUC TION MANAGEMENT; RN TO ASSESS AND OBSERVE, AUTOMATED ACCESS SYSTEMS TECHNICIAN/LANDSCAPE ARCHITECTURE TEACHER TO OBSERVE FALL RISK FACTORS AND EDUCATE PATIENT/CAREGIVER ON STRATEGIES TO MINIMIZE THE RISK OF FALLING. [code = FALL REDUCTION MANAGEMENT; RN TO ASSESS AND OBSERVE, AUTOMATED ACCESS SYSTEMS TECHNICIAN/LANDSCAPE ARCHITECTURE TEACHER TO OBSERVE FALL RISK FACTORS AND EDUCATE [...] End Date/Time Encounter Type Admission Type Attending [facility] Department Encounter ID Discharge Date Discharge Status Discharge Condition Discharge Reason Percent Goals Met 2024-10-04 00:00:00 2024-12-02 00:00:00 Outpatient NEW ADMISSION ANTONIETA TOMLINSON [facility] [id number] 33.33
[2024-10-23] MEDS: AZITHROMYCIN 500 MG/NS 250 ML 500 MG/250 ML BAG 250 MG IVPB (14:32)
--- NOTE | 2024-10-23 15:10 | PM.IMHP ---
H&P: HPI History of Present Illness Date/Time: 10/23/24 15:10 Chief Complaint: Generalized Weakness Narrative: 64 y/o F with PMH of multiple sclerosis, paroxysmal AFib, scoliosis, and hypertension presents here with generalized weakness. The patient presents here from home on 10/23 for further evaluation of generalized weakness and possible aspiration. She currently resides at home with her son as her primary caregiver. She reports she has been experiencing worsening generalized weakness, increased stiffness, generalized pain, and poor P.O. intake for the past 3 days (since Monday). Son reported to ED staff that she has been coughing up her oral medications and has developed gurgling respirations which made him concerned for aspiration. Recent constipation. Has not reported shortness of breath to her son, however he notes that she has seemed more labored. The patient denies fever, chills, or diarrhea. Initial VS at presentation: 97.6? F, HR 116, RR 23, 129/92, and 97% on RA. ED workup showed: WBC 13.3, no anemia, sodium 150, creatinine 1.29 and GFR 41 (previously 0.78 and GFR >60 on 07/02/2024), calcium 10.5, UA equivocal for infection as there are moderate epithelial cells. CXR showed mild interstitial edema. Review of Systems Review of Systems: All systems reviewed & are unremarkable except as noted in HPI and below PMFSH Past Medical History Medical History (Updated 10/23/24 @ 22:27 by Arielle Lainez APRN) ESTEFANÍA (acute kidney injury) Venous insufficiency of lower extremity Scoliosis History of ectopic Paroxysmal atrial fibrillation Multiple sclerosis (1997) Hypertension Cellulitis Of the left lower extreme Surgical History Surgical History History of 2 sections Family History Family History Father Cerebrovascular accident Hypertension CAD (coronary artery disease) Social History Social History Social History: The patient is lives with her son for the last 3 years until her recent hospitalization in May at which time she was discharged to [facility] for rehab. She raised 2 sons. She is currently living with her oldest son. At baseline the patient can report the walk. Code status: Full code Surrogate decision maker: Olivier Gonzalez (son) Smoking status: Never smoker Second hand tobacco smoke exposure: No Alcohol intake: never Substance use: never Substance use type: does not use Do You Feel Safe in your Home?: Yes Lack of Transportation: No Lack of Food: Never True Current Housing: I Have Housing Concerned About Future Housing: No Difficulty Paying Gas/Electric Bills: No Difficulty Paying for Meds: No Currently Unemployed: No Education: High School Diploma/GED Difficulty w/ Childcare or Family Care: Decline to Answer Spiritual care concerns: No Meds Home Medications and Allergies Home Medications ?Medication ?Instructions ?Recorded ?Confirmed ?Type dimethyl fumarate 240 mg 240 mg PO BID #180 caps 05/13/24 10/23/24 Rx capsule,delayed release (Tecfidera) valacyclovir 500 mg tablet 1,000 mg (2 x 500 mg) PO Q12HR #17 07/02/24 10/23/24 Rx (Valtrex) tabs ibuprofen 600 mg tablet 600 mg PO TID PRN pain #90 tabs 10/21/24 10/23/24 Rx polyethylene glycol 3350 17 4 g PO DAILY 10/23/24 10/23/24 History gram/dose oral powder (ClearLax) Allergies Allergy/AdvReac Type Severity Reaction Status Date / Time Seasonal Allergies Allergy Mild itchiness Uncoded 10/21/24 12:45 Vital Signs Vital Signs - 24 hr 10/23/24 11:31 10/23/24 11:42 10/23/24 11:46 Temperature 97.6 F Pulse Rate 116 H 116 H Respiratory Rate 23 H 26 H Blood Pressure 129/92 H Pulse Oximetry 97 95 Oxygen Delivery Room Air 10/23/24 12:22 10/23/24 13:22 Temperature Pulse Rate 123 H 131 H Respiratory Rate 25 H 22 H Blood Pressure Pulse Oximetry Oxygen Delivery Exam Const: General: comfortable and no acute distress Other: , female, nontoxic appearance HENMT: Face/Nose/Sinus: Normal nares present Mouth: Yes moist mucous membranes Eyes: General: appearance normal, both eyes and all related structures Sclera: sclerae normal Pupils: Equal, round and reactive pupils present EOM: EOMs intact bilaterally Resp: Effort & Inspection: normal respiratory effort Auscultation: clear to auscultation bilaterally Cardio: Rate: regular rate Rhythm: regular rhythm Other: S1-S2 present without murmur, rub, ectopy GI: Other: Abdomen soft, nondistended, nontender. Normoactive bowel sounds in all quadrants. Skin: General skin exam: normal color and no rashes or lesions noted Wounds: no wounds Neuro: Other: Minimally interactive, alert and awake. Extrem: Other: Asymmetric swelling to right lower extremity, 1+ edema. Psych: Other: Flat affect. H&P: Results Labs Labs: Short CBC 10/23/24 Range/Units 11:45 WBC 13.3 H (4.5-10.0) K/mm3 Hgb 12.0 (12.0-15.0) g/dL Hct 35.0 L (37.0-47.0) % Plt Count 356 (150-375) k/mm3 BMP 10/23/24 11:45 Sodium 150 H Potassium 3.8 Chloride 112 H Carbon Dioxide 24 BUN 53 H D Creatinine 1.29 H Glucose 106 Calcium 10.5 H Liver Function 10/23/24 Range/Units 11:45 Total Bilirubin 0.6 (0.2-1.3) mg/dL AST 29 (14-36) U/L ALT 17 (6-35) U/L Alkaline Phosphatase 83 (38-126) U/L Albumin 3.7 (3.5-5.1) g/dL Urine 10/23/24 Range/Units 12:19 Urine Color Yellow (Yellow) Urine Appearance Turbid H (Clear) Urine pH 8.0 (5.0-9.0) Ur Specific [place] 1.017 (1.001-1.035) Urine Protein 2+ H (Negative) mg/dL Urine Glucose (UA) Negative (Negative) mg/dL Assessment and Plan Assessment and plan (1) Sepsis: Qualifiers: Sepsis acute organ dysfunction status: without acute organ dysfunction Sepsis type: sepsis due to unspecified organism Qualified Code(s): A41.9 - Sepsis, unspecified organism Code(s): A41.9 - Sepsis, unspecified organism Status: Acute Assessment and Plan: - meets SIRS criteria: HR, RR - lactic acid: 1.7 - 30 mL/kg = 1600, bolus given in ED - suspected source: aspiration PNA, UTI - started on ceftriaxone and azithromycin on 10/23, add metronidazole for aspiration coverage - blood cultures drawn on 10/23, follow - UA equivocal for infection, mod epithelial cells - CXR: Mild interstitial edema. (2) Aspiration pneumonia: Qualifiers: Aspiration pneumonia type: unspecified Laterality: unspecified laterality Lung location: unspecified part of lung Qualified Code(s): J69.0 - Pneumonitis due to inhalation of food and vomit Code(s): J69.0 - Pneumonitis due to inhalation of food and vomit Status: Acute Assessment and Plan: - CXR showed mild interstitial edema. however witnessed choking episodes/inability to swallow pills with gurgling respirations. high concern for aspiration pna. - started on ceftriaxone, azithromycin, and Flagyl on 10/23 - check MRSA PCR and sputum culture - supportive care - no current supplemental O2 requirement (3) Dysphagia: Qualifiers: Dysphagia type: unspecified Qualified Code(s): R13.10 - Dysphagia, unspecified Code(s): R13.10 - Dysphagia, unspecified Status: Acute Assessment and Plan: - inability to swallow pills, poor p.o. intake witnessed by son - speech evaluation (4) ESTEFANÍA (acute kidney injury): Code(s): N17.9 - Acute kidney failure, unspecified Status: Acute Assessment and Plan: - creatinine 1.29 and GFR 41, previously 0.78 and normal GFR on 07/02/2024 - suspected secondary to acute dehydration due to poor p.o. intake - trend renal function - trend electrolytes, correct as needed (5) Hypernatremia: Code(s): E87.0 - Hyperosmolality and hypernatremia Status: Acute Assessment and Plan: - Na 150 - suspect hypernatremia secondary to dehydration, rehydrating. Given 1.6 L bolus, now on 125 mL/hour - monitor I&Os and neurological status (6) Abnormal urinalysis: Code(s): R82.90 - Unspecified abnormal findings in urine Status: Acute Assessment and Plan: - UA: Turbid, 2+ protein, 1+ ketones, 1+ blood, 3+ leuks, 6-10 RBC, 51-100 WBC, moderate epithelial cells, triple phosphate crystals present, amorphous sediment moderate, 1+ bacteria - UC pending - previous micro reviewed, no previous resistances - started on Ceftriaxone on 10/23 (7) Multiple sclerosis: Onset Date: 1997 Code(s): G35 - Multiple sclerosis Status: Chronic Assessment and Plan: - continue home medications: Tecfidera (8) Paroxysmal atrial fibrillation: Code(s): I48.0 - Paroxysmal atrial fibrillation Status: Resolved Assessment and Plan: - EKG, initial: Sinus tachycardia, rate 118, possible left atrial enlargement, delayed precordial R/S transition, baseline artifact - not currently on any anti dysrhythmic or anticoagulation - telemetry monitoring, currently tachycardic in the 130s (9) Hypertension: Qualifiers: Hypertension type: primary hypertension Qualified Code(s): I10 - Essential (primary) hypertension Code(s): I10 - Essential (primary) hypertension Status: Resolved Assessment and Plan: - chronic, currently 129/92 - not currently on antihypertensives - monitor Plan Family currently feels comfortable with patient at home, instructed to alert provider if situation changes for them. Diet: heart healthy GI Prophylaxis: not currently indicated DVT Prophylaxis: Lovenox SQ IV fluids: 1.6L -> 125 mL/hr Lines/Tubes: Peripheral IV, Stone Code Status: Full code Quality VTE Prophylaxis VTE prophylaxis: pharmacologic ordered Hospitalist MIPS Advance Care Plan I have confirmed that the patient's Advanced Care Plan is present, code status is documented, or surrogate decision maker is listed in patient medical record.: Yes Medication Reconciliation I have utilized all available resources to obtain, update and review the patients current medications (includes all prescriptions, OTC, herbals, cannabis, and nutritional supplements).: Yes
--- NOTE | 2024-10-23 15:36 | ADMGEN ---
This patient, Jolene Gonzalez, was admitted to IMU Room 213-01. Patient/family oriented to hospital policies and general routines including ID bracelet, bed and alarms, visiting hours, pain management, procedures, bathroom and other care routines, personal items, smoking policy, room service/diet, and visiting hours. Information on how to activate the Rapid Response Team has been discussed. Patient/Family are encouraged to report perceived risks to care and to ask questions if they do not understand what they are told or what they should do.
[2024-10-23 15:45] LABS: NT Pro B Type Natriuretic Pept 123 pg/mL (19.9-100)
[2024-10-23] MEDS: metroNIDAZOLE 500 MG/ISO 100ML 500 MG/100 ML BAG 100 MG IVPB (18:49)
[2024-10-23] MEDS: SODIUM CHLORIDE 0.9% IV 1,000 ML 125 ML IV CONT (18:49)
[2024-10-24] VITALS (15 sets, daily range): BP systolic 116–136; BP diastolic 67–77; PULSE 86–113; RESP 16–20; TEMP 36.3–37.1; O2SAT 95–100
--- NOTE | 2024-10-24 | ECHO_ITS ---
Patient Info Name: Jolene Gonzalez Age: 64 years : 1960 Gender: Female Ht: 63 in Wt: 114 lbs BSA: 1.51 m2 HR: 97 bpm BP: 127 / 74 mmHg Technical Quality: Good Exam Date: 10/24/2024 10:37 AM Patient Status: I Admit Date: 10/24/2024 Exam Type: CA echo doppler color flow Staff Referring Physician: Yazmin Mojica Retail Office Manager: Yue Scanlon Attending Provider: Yazmin Mojica Summary 1. Left ventricular chamber dimension is normal. 2. Left ventricular systolic function is normal, estimated at 60-65. 3. The left ventricular diastolic function is grade I diastolic dysfunction. 4. E/e' 9 is minimally elevated. 5. There is mild aortic valve sclerosis. 6. There is mild tricuspid valve regurgitation. 7. No pulmonary hypertension, estimated pulmonary arterial systolic pressure is 30 mmHg. Left Ventricle E/e' 9 is minimally elevated. Left ventricular chamber dimension is normal. Left ventricular systolic function is normal, estimated at 60-65. The left ventricular diastolic function is grade I diastolic dysfunction. Right Ventricle Right ventricular chamber dimension is normal. Right ventricular systolic function is normal. Left Atria Left atrial chamber dimension is normal. Right Atria Right atrial chamber dimension is normal. Aortic Valve The aortic valve is trileaflet. There is mild aortic valve sclerosis. There is no aortic valve stenosis. There is no aortic valve regurgitation. Pulmonic Valve There is no pulmonic regurgitation. Mitral Valve There is no mitral valve stenosis. There is no mitral valve regurgitation. Tricuspid Valve There is mild tricuspid valve regurgitation. No pulmonary hypertension, estimated pulmonary arterial systolic pressure is 30 mmHg. Pericardium/Pleural There is no pericardial effusion. Inferior Vena Cava Normal inferior vena cava with >50% collapse upon inspiration consistent with normal right atrial pressure, 5 mmHg. Aorta The aortic root size at the sinus of Valsalva is normal. Left Ventricular Outflow Tract Name Value Normal LVOT 2D LVOT Diameter 2.0 cm LVOT Doppler LVOT Peak Velocity 115 cm/s LVOT Peak Gradient 5 mmHg LVOT Mean Gradient 3 mmHg LVOT VTI 18 cm LVOT VTI/AV VTI Ratio 0.8 LVOT Stroke Volume 56 ml LVOT CO 5.2 l/min LVOT CI 3.5 l/min/m2 Pulmonic Valve Name Value Normal PV Doppler PV Peak Velocity 102 cm/s PV Peak Gradient 4 mmHg PV Regurgitation Doppler MN Peak End Diastolic Velocity 68 cm/s Mitral Valve Name Value Normal MV Diastolic Function MV E Peak Velocity 76 cm/s MV A Peak Velocity 93 cm/s MV E/A 0.8 MV Decel Time (PW) 192 ms MV Annular TDI MV E/e' (Septal) 9.8 MV E/e' (Lateral) 8.4 MV E/e' (Average) 9.1 Tricuspid Valve Name Value Normal TV Regurgitation Doppler TR Peak Velocity 249 cm/s TR Peak Gradient 24 mmHg Estimated PAP/RSVP RA Pressure 5 mmHg <=5 PA Systolic Pressure 30 mmHg <36 RV Systolic Pressure 30 mmHg <36 TV Annular TDI TV Lateral Yoana s' Velocity 14.4 cm/s >=9.5 Aortic Valve Name Value Normal AV Doppler AV Peak Velocity 145 cm/s AV Peak Gradient 8 mmHg AV Mean Gradient 4 mmHg AV VTI 24 cm AV Area (Cont Eq VTI) 2.4 cm2 >=3.0 AV Area (Cont Eq Cory) 2.5 cm2 AV DI (Cory) 0.80 AV Regurgitation 2D LVOT Area 3.1 cm2 Ventricles Name Value Normal LV Dimensions 2D/MM IVS Diastolic Thickness (2D) 0.9 cm 0.6-1.0 LVID Diastole (2D) 4.3 cm 3.8-5.2 LVIW Diastolic Thickness (2D) 1.0 cm 0.6-0.9 LVID Systole (2D) 2.8 cm 2.2-3.5 LVOT Diameter 2.0 cm LV Mass (2D Cubed) 136.11 g 67.00-162.00 LV Mass Index (2D Cubed) 90 g/m2 43-95 Relative Wall Thickness (2D) 0.49 <=0.42 LV Fractional Shortening/Ejection Fraction 2D/MM LV Fractional Shortening (2D) 33 % 27-45 LV EF (2D Teichholz) 62 % LV Diastolic Volume (4C MOD) 55 ml LV EF (4C MOD) 60 % LV Diastolic Volume (2C MOD) 50 ml LV EF (2C MOD) 59 % LV Diastolic Volume (BP MOD) 53 ml 46-106 LV Diastolic Volume Index (BP MOD) 35 ml/m2 29-61 LV Systolic Volume (BP MOD) 21 ml 14-42 LV Systolic Volume Index (BP MOD) 14 ml/m2 8-24 LV EF (BP MOD) 60 % 54-74 LV Diastolic Length (4C) 6.9 cm LV Systolic Length (4C) 6.0 cm LV Stroke Volume (4C MOD) 33 ml Atria Name Value Normal LA Dimensions LA Volume (4C A-L) 18 ml LA Volume (BP A-L) 23 ml RA Dimensions RA Systolic Major [place] Length (4C) 3.6 cm 2.2-2.8 RA Area (4C) 7.1 cm2 <=18.0 Report Signatures
[2024-10-24] MEDS: metroNIDAZOLE 500 MG/ISO 100ML 500 MG/100 ML BAG 100 MG IVPB ×3 (00:45→17:55)
[2024-10-24] MEDS: SODIUM CHLORIDE 0.9% IV 1,000 ML 125 ML IV CONT (04:12)
[2024-10-24 05:04] LABS: Basophils Percent Auto 0.4 % (0.2-1.2); Eosinophils Absolute Auto 0.2 K/mm3 (0-0.3); Eosinophils Percent Auto 1.8 % (0-4.4); Hematocrit 26.5 % (37.0-47.0); Immature Granulocyte Absolute 0.08 K/mm3 (0.00-0.031); Immature Granulocyte Percent A 0.8 % (0-0.5); Lymphocytes Absolute Auto 0.54 K/mm3 (0.9-3.2); Lymphocytes Percent Auto 5.5 % (18.3-44.2); Mean Corpuscular Hemoglobin 27.2 pg (26-34); Mean Corpuscular Volume 80.1 fl (80-100); Mean Platelet Volume 11.5 fl (7.4-10.4); Monocytes Absolute Auto 0.6 K/mm3 (0.1-0.6); Neutrophils Absolute Auto 8.4 K/mm3 (1.3-6.7); Neutrophils Percent Auto 85.5 % (45.5-73.1); Platelet Count Result 291 k/mm3 (150-375); Red Blood Count 3.31 M/mm3 (4.2-5.4); Red Cell Distribution Width 16.3 % (11.5-14.5); White Blood Count 9.9 K/mm3 (4.5-10.0)
[2024-10-24 05:23] LABS: Alanine Aminotransferase 12 U/L (6-35); Albumin Level 2.8 g/dL (3.5-5.1); Alkaline Phosphatase 61 U/L (38-126); Anion Gap 10 mmol/L (4-12); Aspartate Amino Transferase 24 U/L (14-36); Bilirubin,Total 0.4 mg/dL (0.2-1.3); Blood Urea Nitrogen 35 mg/dL (7-17); Calcium 9.3 mg/dL (8.4-10.2); Carbon Dioxide 21 mmol/L (22-30); Chloride 121 mmol/L (98-107); Estimated CRCL calculation 46 ml/min; Estimated Glomerular Filt Rate > 60; Glucose 101 mg/dL (65-110); Sodium 152 mmol/L (137-145); Total Protein 6.9 g/dL (6.3-8.2)
[2024-10-24] MEDS: ENOXAPARIN 40 MG/0.4 ML SYRINGE SUB-Q (08:37)
[2024-10-24 08:47] LABS: Iron 23 ug/dL (37-170)
--- NOTE | 2024-10-24 08:50 | PCSTNOTE ---
Please refer to the Bedside Swallow Evaluation in the EMR. Please note, silent aspiration cannot be ruled out at bedside.
[2024-10-24 08:58] LABS: Percent Iron Saturation 14 % (20-50)
[2024-10-24] MEDS: DEXTROSE 5% 1,000 ML 1,000 ML 100 ML IV CONT ×2 (09:47→09:48)
[2024-10-24 10:43] LABS: INR 1.6; Partial Thromboplastin Time 36.1 Seconds (22.3-36.8); Prothrombin Time 18.5 Seconds (11.1-14.7)
[2024-10-24] MEDS: AZITHROMYCIN 500 MG/NS 250 ML 500 MG/250 ML BAG 250 MG IVPB (11:55)
[2024-10-24] MEDS: HEPARIN SODIUM 5,000 UNITS/ML VIAL 4000 UNITS IV PUSH (12:09)
[2024-10-24] MEDS: HEPARIN SOD/D5W 100 UNITS/ML 25,000 UNITS/250 ML BAG 9 UNITS IV CONT (12:10)
--- NOTE | 2024-10-24 13:42 | P.CONGS_ITS ---
Assessment and Plan Assessment and plan (1) Decubitus ulcer of sacral region, unstageable: Code(s): L89.150 - Pressure ulcer of sacral region, unstageable Status: Acute Assessment and Plan: * Patient presents with an infected necrotic unstageable sacral decubitus ulcer. This could be the source for her sepsis and will need surgical debridement. We would recommend proceeding with debridement of the infected sacral decubitus ulcer tomorrow in the OR by Dr. Bennett. She is NPO for a modified barium swallow, but will also need to remain NPO after midnight. Continue local wound care for now. She will need frequent turning/pressure offloading. Will continue to follow. (2) DVT (deep venous thrombosis): Code(s): I82.409 - Acute embolism and thrombosis of unspecified deep veins of unspecified lower extremity Status: Acute Assessment and Plan: * Extensive DVT of the right lower extremity veins noted on venous Doppler today. Management per hospitalist. Currently on a heparin infusion (3) Anticoagulated by anticoagulation treatment: Code(s): Z79.01 - alf (current) use of anticoagulants Status: Acute Assessment and Plan: * Started on a heparin infusion for DVT (4) Sepsis: Qualifiers: Sepsis acute organ dysfunction status: without acute organ dysfunction Sepsis type: sepsis due to unspecified organism Qualified Code(s): A41.9 - Sepsis, unspecified organism Code(s): A41.9 - Sepsis, unspecified organism Status: Acute Assessment and Plan: * Criteria met with tachycardia, tachypnea, and leukocytosis. Source could be pulmonary vs urinary vs sacral wound. CT chest suggests left upper lobe pneumonia. UA abnormal, no urine culture resulted. Continue broad-spectrum IV antibiotics. See plan above regarding debridement of the sacral wound. Blood cultures pending. (5) Pneumonia: Code(s): J18.9 - Pneumonia, unspecified organism Status: Acute Assessment and Plan: * Currently on IV antibiotics. Management per hospitalist. Concern for aspiration pneumonia. She is currently NPO and will be getting a modified barium swallow. (6) Multiple sclerosis: Onset Date: 1997 Code(s): G35 - Multiple sclerosis Status: Chronic (7) Paroxysmal atrial fibrillation: Code(s): I48.0 - Paroxysmal atrial fibrillation Status: Resolved Plan I have discussed the patient's case and plan of care with Dr. Bennett. History of Present Illness Consult details Consult date: 10/24/24 Reason for consult: other (Sacral wound) Requesting physician: Yazmin Mojica MD Narrative: This is a 64-year-old female with a history of multiple sclerosis who is bed- bound, paroxysmal atrial fibrillation not on anticoagulation, scoliosis, and HTN, who we have been asked to see in surgical consultation for a sacral wound. She previously lived at home with her son, who is her primary caregiver, but was discharged to SNF after a hospitalization in May. She was there for rehab and returned home a few months ago. She is a poor historian, therefore history is obtained by review of the EMR. She has recently had increased weakness, generalized pain, poor oral intake, and was noted to be coughing with taking her medication per her son. Per staff, she was previously ambulatory, but has not been able to ambulate for months. Her son has been carrying her around the house. There was concerns for aspiration and he had noticed labored breathing, and she was brought into the ED for evaluation. [place] [address], sodium 150, creatinine 1.29, UA abnormal. Chest x-ray showed mild interstitial edema. She is admitted to the hospitalist service. She was found to have right lower extremity edema prompting venous Doppler ultrasound that showed extensive right lower extremity DVT. She has been started on heparin infusion. CT chest showed left upper lobe pneumonia and bibasilar atelectatic change. She is currently on IV ceftriaxone and metronidazole. Wound care was consulted for a sacral wound. After their evaluation, we have been consulted for a necrotic sacral decubitus ulcer. She is now seen in the IMU. Review of Systems 2 Review of Systems: ROS unobtainable: Yes unobtainable due to mental status [facility] Past Medical History Medical History ESTEFANÍA (acute kidney injury) Venous insufficiency of lower extremity Scoliosis History of ectopic Paroxysmal atrial fibrillation Multiple sclerosis (1997) Hypertension Cellulitis Of the left lower extreme Surgical History Surgical History History of 2 sections Family History Family History Father Cerebrovascular accident Hypertension CAD (coronary artery disease) Social History Social History Social History: The patient is lives with her son for the last 3 years until her recent hospitalization in May at which time she was discharged to [facility] for rehab. She raised 2 sons. She is currently living with her oldest son. At baseline the patient can report the walk. Code status: Full code Surrogate decision maker: Olivier Gonzalez (son) Smoking status: Never smoker Second hand tobacco smoke exposure: No Alcohol intake: never Substance use: never Substance use type: does not use Do You Feel Safe in your Home?: Yes Lack of Transportation: No Lack of Food: Never True Current Housing: I Have Housing Concerned About Future Housing: No Difficulty Paying Gas/Electric Bills: No Difficulty Paying for Meds: No Currently Unemployed: No Education: High School Diploma/GED Difficulty w/ Childcare or Family Care: Decline to Answer Spiritual care concerns: No Meds Home Medications and Allergies Home Medications ?Medication ?Instructions ?Recorded ?Confirmed ?Type dimethyl fumarate 240 mg 240 mg PO BID #180 caps 05/13/24 10/23/24 Rx capsule,delayed release (Tecfidera) valacyclovir 500 mg tablet 1,000 mg (2 x 500 mg) PO Q12HR #17 07/02/24 10/23/24 Rx (Valtrex) tabs ibuprofen 600 mg tablet 600 mg PO TID PRN pain #90 tabs 10/21/24 10/23/24 Rx polyethylene glycol 3350 17 4 g PO DAILY 10/23/24 10/23/24 History gram/dose oral powder (ClearLax) Allergies Allergy/AdvReac Type Severity Reaction Status Date / Time Seasonal Allergies Allergy Mild itchiness Uncoded 10/21/24 12:45 Vital Signs Vital Signs - 24 hr 10/23/24 15:53 10/23/24 16:00 10/23/24 18:00 Temperature 98.3 F Pulse Rate 126 H 119 H 122 H Respiratory Rate 20 Blood Pressure 131/77 Pulse Oximetry 98 Oxygen Delivery 10/23/24 20:00 10/23/24 20:00 10/23/24 20:00 Temperature 98.2 F Pulse Rate 119 H 119 H 120 H Respiratory Rate 20 20 Blood Pressure 132/63 Pulse Oximetry 98 98 Oxygen Delivery Room Air 10/23/24 22:00 10/24/24 00:00 10/24/24 00:00 Temperature 98.2 F Pulse Rate 108 H 113 H Respiratory Rate 20 Blood Pressure 126/77 Pulse Oximetry 99 99 Oxygen Delivery Room Air 10/24/24 00:00 10/24/24 02:00 10/24/24 03:52 Temperature 98.3 F Pulse Rate 111 H 101 H 108 H Respiratory Rate 20 Blood Pressure 126/76 Pulse Oximetry 99 Oxygen Delivery 10/24/24 04:00 10/24/24 04:00 10/24/24 06:00 Temperature Pulse Rate 96 94 Respiratory Rate Blood Pressure Pulse Oximetry 99 Oxygen Delivery Room Air 10/24/24 08:00 10/24/24 09:11 10/24/24 12:00 Temperature 98.2 F 98.7 F Pulse Rate 97 95 Respiratory Rate 20 16 Blood Pressure 127/74 119/67 Pulse Oximetry 99 95 100 Oxygen Delivery Room Air Exam 2 Const: General: comfortable, no acute distress and awake Nutritional Appearance: average body habitus Orientation/consciousness: confusion HENMT: Head: normocephalic and atraumatic Mouth: Yes moist mucous membranes Eyes: General: appearance normal, both eyes and all related structures P upils: Equal, round and reactive pupils present EOM: EOMs intact bilaterally Neck: Neck: normal visual inspection Resp: Effort & Inspection: no respiratory distress Cardio: Rate: regular rate Rhythm: abnormal rhythm irregularly irregular GI: Inspection: non-distended GI Palp: Yes Soft to palpation, No Tenderness to palpation present (GI), No Guarding due to palpation present (GI) and No Rebound tenderness present Percussion: Yes normal to percussion A uscultation: normal bowel sounds Rectal Exam: deferred Skin: General skin exam: normal color Other: 6x8 cm unstageable sacral decubitus ulce r on the right with a soft gardner eschar and foul odor, no purulent drainage or crepitus, surrounding skin has superficial maceration Small superficial wound to the left upper back with no surrounding erythema, purulent drainage, or necrotic tissue Neuro: General: no focal motor deficits Speech: normal speech Extrem: General: edema right (RLE) Psych: Insight: Limited insight present (Psych) Judgement: Limited judgement present (Psych) Results Labs 10/24/24 04:11 10/24/24 04:11 Labs: Abnormal lab results 10/23/24 10/24/24 10/24/24 Range/Units 11:45 04:11 10:23 RBC 3.31 L (4.2-5.4) M/mm3 Hgb 9.0 L D (12.0-15.0) g/dL Hct 26.5 L (37.0-47.0) % RDW 16.3 H (11.5-14.5) % MPV 11.5 H (7.4-10.4) fl Immature Gran % (Auto) 0.8 H (0-0.5) % Neut % (Auto) 85.5 H (45.5-73.1) % Lymph % (Auto) 5.5 L (18.3-44.2) % Lymph # (Auto) 0.54 L (0.9-3.2) K/mm3 Abs Immat Gran (auto) 0.08 H (0.00-0.031) K/mm3 Absolute Neuts (auto) 8.4 H (1.3-6.7) K/mm3 PT 18.5 H (11.1-14.7) Seconds Sodium 152 H (137-145) mmol/L Potassium 3.0 L (3.4-5.0) mmol/L Chloride 121 H (98-107) mmol/L Carbon Dioxide 21 L (22-30) mmol/L BUN 35 H D (7-17) mg/dL Iron 23 L (37-170) ug/dL TIBC 169 L (261-462) ug/dL % Saturation 14 L (20-50) % Ferritin 279.00 H (11.1-264) ng/mL NT-Pro-B Natriuret Pep 123 H (19.9-100) pg/mL Albumin 2.8 L (3.5-5.1) g/dL Diabetes panel 10/24/24 Range/Units 04:11 Sodium 152 H (137-145) mmol/L Potassium 3.0 L (3.4-5.0) mmol/L Chloride 121 H (98-107) mmol/L Carbon Dioxide 21 L (22-30) mmol/L BUN 35 H D (7-17) mg/dL Creatinine 0.87 (0.7-1.0) mg/dL Glucose 101 (65-110) mg/dL Calcium 9.3 (8.4-10.2) mg/dL AST 24 (14-36) U/L ALT 12 (6-35) U/L Alkaline Phosphatase 61 (38-126) U/L Total Protein 6.9 (6.3-8.2) g/dL Albumin 2.8 L (3.5-5.1) g/dL Calcium panel 10/24/24 Range/Units 04:11 Calcium 9.3 (8.4-10.2) mg/dL Albumin 2.8 L (3.5-5.1) g/dL Pituitary panel 10/24/24 Range/Units 04:11 Sodium 152 H (137-145) mmol/L Potassium 3.0 L (3.4-5.0) mmol/L Chloride 121 H (98-107) mmol/L Carbon Dioxide 21 L (22-30) mmol/L BUN 35 H D (7-17) mg/dL Creatinine 0.87 (0.7-1.0) mg/dL Glucose 101 (65-110) mg/dL Calcium 9.3 (8.4-10.2) mg/dL Adrenal panel 10/24/24 Range/Units 04:11 Sodium 152 H (137-145) mmol/L Potassium 3.0 L (3.4-5.0) mmol/L Chloride 121 H (98-107) mmol/L Carbon Dioxide 21 L (22-30) mmol/L BUN 35 H D (7-17) mg/dL Creatinine 0.87 (0.7-1.0) mg/dL Glucose 101 (65-110) mg/dL Calcium 9.3 (8.4-10.2) mg/dL Total Bilirubin 0.4 (0.2-1.3) mg/dL AST 24 (14-36) U/L ALT 12 (6-35) U/L Alkaline Phosphatase 61 (38-126) U/L Total Protein 6.9 (6.3-8.2) g/dL Albumin 2.8 L (3.5-5.1) g/dL All other labs normal. Imaging Additional studies: ITS Impressions Chest X-Ray 10/23/24 13:30 Impression: 1: Mild interstitial edema. Venous Doppler Study 10/24/24 09:59 IMPRESSION: 1: Extensive deep venous thrombosis of the right lower extremity veins. Dr. [place] discussed with the patient's nurse, Mora, at 10/24/2024 10:[address] 10/24/24 10:16 Impression: Patchy left upper lobe pneumonia. Bibasilar atelectatic change.
--- NOTE | 2024-10-24 15:36 | PCSTNOTE ---
Please refer to the Modified Barium Swallow Evaluation in the EMR.
--- NOTE | 2024-10-24 15:39 | PM.IMPN ---
Progress Note: A&P Assessment and Plan (1) Sepsis: Qualifiers: Sepsis type: sepsis due to unspecified organism Sepsis acute organ dysfunction status: without acute organ dysfunction Qualified Code(s): A41.9 - Sepsis, unspecified organism Code(s): A41.9 - Sepsis, unspecified organism Status: Acute Assessment and Plan: resolving, vital signs within normal limits CT chest showed ANAYA pneumonia Contineu Rocephin, Flagyl and Azithromycin F/u blood cultures (2) Aspiration pneumonia: Qualifiers: Aspiration pneumonia type: unspecified Laterality: unspecified laterality Lung location: unspecified part of lung Qualified Code(s): J69.0 - Pneumonitis due to inhalation of food and vomit Code(s): J69.0 - Pneumonitis due to inhalation of food and vomit Status: Acute Assessment and Plan: Continue above care Speech therapy following (3) Dysphagia: Qualifiers: Dysphagia type: unspecified Qualified Code(s): R13.10 - Dysphagia, unspecified Code(s): R13.10 - Dysphagia, unspecified Status: Acute Assessment and Plan: - inability to swallow pills, poor p.o. intake witnessed by son - speech evaluation (4) ESTEFANÍA (acute kidney injury): Code(s): N17.9 - Acute kidney failure, unspecified Status: Acute Assessment and Plan: resolved, likely from dehydration (5) Hypernatremia: Code(s): E87.0 - Hyperosmolality and hypernatremia Status: Acute Assessment and Plan: - Na 150 on D5w monitor (6) Abnormal urinalysis: Code(s): R82.90 - Unspecified abnormal findings in urine Status: Acute Assessment and Plan: on abx monitor urine culture (7) Multiple sclerosis: Onset Date: 1997 Code(s): G35 - Multiple sclerosis Status: Chronic Assessment and Plan: - continue home medications: Tecfidera Patient is very lethargic neurology consulted (8) Paroxysmal atrial fibrillation: Code(s): I48.0 - Paroxysmal atrial fibrillation Status: Resolved Assessment and Plan: - EKG, initial: Sinus tachycardia, rate 118, possible left atrial enlargement, delayed precordial R/S transition, baseline artifact - not currently on any anti dysrhythmic or anticoagulation - telemetry monitoring, currently tachycardic in the 130s (9) Hypertension: Qualifiers: Hypertension type: primary hypertension Qualified Code(s): I10 - Essential (primary) hypertension Code(s): I10 - Essential (primary) hypertension Status: Resolved Assessment and Plan: - chronic, currently 129/92 - not currently on antihypertensives - monitor Plan Diet: heart healthy GI Prophylaxis: not currently indicated DVT Prophylaxis: Lovenox SQ Code Status: Full code Subjective Date/time seen: 10/24/24 15:39 Interval history: Comfortable at bedside Review of Systems Review of Systems: All systems reviewed & are unremarkable except as noted in HPI and below Exam Const: General: comfortable and no acute distress Other: , female, nontoxic appearance HENMT: Face/Nose/Sinus: Normal nares present Mouth: Yes moist mucous membranes Eyes: General: appearance normal, both eyes and all related structures Sclera: sclerae normal Pupils: Equal, round and reactive pupils present EOM: EOMs intact bilaterally Resp: Effort & Inspection: normal respiratory effort Auscultation: clear to auscultation bilaterally Cardio: Rate: regular rate Rhythm: regular rhythm Other: S1-S2 present without murmur, rub, ectopy GI: Other: Abdomen soft, nondistended, nontender. Normoactive bowel sounds in all quadrants. Skin: General skin exam: normal color and no rashes or lesions noted Wounds: no wounds Neuro: Cranial nerves: Yes Equal, round and reactive pupils present Other: Minimally interactive, alert and awake. Extrem: Other: Asymmetric swelling to right lower extremity, 1+ edema. Psych: Other: Flat affect. Objective Data Vital Signs Vital Signs: Vital Signs - 24 hr 10/23/24 15:53 10/23/24 16:00 10/23/24 18:00 Temperature 98.3 F Pulse Rate 126 H 119 H 122 H Respiratory Rate 20 Blood Pressure 131/77 Pulse Oximetry 98 Oxygen Delivery 10/23/24 20:00 10/23/24 20:00 10/23/24 20:00 Temperature 98.2 F Pulse Rate 119 H 119 H 120 H Respiratory Rate 20 20 Blood Pressure 132/63 Pulse Oximetry 98 98 Oxygen Delivery Room Air 10/23/24 22:00 10/24/24 00:00 10/24/24 00:00 Temperature 98.2 F Pulse Rate 108 H 113 H Respiratory Rate 20 Blood Pressure 126/77 Pulse Oximetry 99 99 Oxygen Delivery Room Air 10/24/24 00:00 10/24/24 02:00 10/24/24 03:52 Temperature 98.3 F Pulse Rate 111 H 101 H 108 H Respiratory Rate 20 Blood Pressure 126/76 Pulse Oximetry 99 Oxygen Delivery 10/24/24 04:00 10/24/24 04:00 10/24/24 06:00 Temperature Pulse Rate 96 94 Respiratory Rate Blood Pressure Pulse Oximetry 99 Oxygen Delivery Room Air 10/24/24 08:00 10/24/24 09:11 10/24/24 12:00 Temperature 98.2 F 98.7 F Pulse Rate 97 95 Respiratory Rate 20 16 Blood Pressure 127/74 119/67 Pulse Oximetry 99 95 100 Oxygen Delivery Room Air Intake/Output Intake/Output: Intake & Output 10/21/24 10/22/24 10/23/24 10/24/24 23:59 23:59 23:59 23:59 Intake Total 1750 1101.7 Output Total 400 300 Balance 1350 801.7 Meds/Results Medications: Active Medications Generic Name Dose Route Start Last Admin Trade Name Freq PRN Reason Stop Dose Admin Benzonatate 100 mg 10/23/24 15:49 Benzonatate 100 Mg Capsule PO TID PRN Cough Guaifenesin 600 mg 10/23/24 15:49 Guaifenesin 12 Hr 600 Mg Tabcr PO Q12HR PRN Congestion Heparin Sodium (Porcine) 4,000 units 10/24/24 10:06 Heparin Sodium 5,000 Units/Ml Vial IV PUSH PRN PRN aPTT less than 55 seconds Heparin Sodium (Porcine) 2,000 units 10/24/24 10:06 Heparin Sodium 5,000 Units/Ml Vial IV PUSH PRN PRN aPTT 55 - 70 seconds Ceftriaxone Sodium 1 gm in 50 mls @ 100 mls/hr 10/24/24 09:00 10/24/24 09:46 Rocephin 1 Gm/Ns 50 Ml IVPB 100 mls/hr QAM APRYL Administration Azithromycin 500 mg in 250 mls @ 250 mls/hr 10/24/24 09:00 10/24/24 11:55 Zithromax IVPB 250 mls/hr Q24H APRYL Administration Metronidazole 500 mg in 100 mls @ 100 mls/hr 10/23/24 16:00 10/24/24 08:35 Flagyl 500 Mg/Iso Soln 100 Ml IVPB 100 mls/hr Q8H APRYL Administration Dextrose 1,000 mls @ 100 mls/hr 10/24/24 09:40 10/24/24 09:48 Dextrose 5% 1,000 Ml IV CONT 100 mls/hr .Q10H APRYL Administration Heparin Sodium/Dextrose 25,000 units in 250 mls @ 9 mls/hr 10/24/24 10:10 Heparin Sodium/D5w 100 Units/Ml IV CONT .Q24H APRYL Protocol 900 UNITS/HR Ibuprofen 600 mg 10/23/24 22:02 Ibuprofen 600 Mg Tablet PO TID PRN pain Miscellaneous Information 1 each 10/24/24 00:01 10/24/24 01:26 Clarify Miralax Dose--4 Gm Is A Pediatric Dose, Should This Be The Standard 17 Gm For An A XX 11/23/24 00:00 Not Given [facility] Miscellaneous Information 1 each 10/24/24 00:01 10/24/24 01:26 Tecfidera Is Nonform; Can Pt Use From Home? XX 11/23/24 00:00 Not Given [facility] Non-Formulary Medication 240 mg 10/24/24 09:00 Dimethyl Fumarate [Tecfidera] PO 11/23/24 08:59 BID [facility] Perflutren Lipid Microsphere 0 ml 10/24/24 08:24 Perflutren Lipid Microspheres 1.5 Ml Vial Diluted To 10 Ml Total Volume IV PUSH 10/27/24 08:24 ONCE PRN adequate visualization Protocol Polyethylene Glycol 4 gm 10/24/24 09:00 Polyethylene Glycol 3350 17 Gm Powd.Pack PO DAILY [facility] Promethazine HCl 12.5 mg 10/23/24 14:03 Promethazine Hcl 25 Mg/Ml Ampul IV PUSH Q6H PRN Nausea Sodium Hypochlorite 1 applic 10/24/24 13:40 Sod Hypochlorite 1/4 Strength 473 Ml TOPICAL Q12HR [facility] Valacyclovir HCl 1,000 mg 10/23/24 22:10 10/24/24 08:37 Valacyclovir Hcl 500 Mg Tablet PO Not Given Q12HR [facility] Radiology Results: ITS Impressions Chest X-Ray 10/23/24 13:30 Impression: 1: Mild interstitial edema. Venous Doppler Study 10/24/24 09:59 IMPRESSION: 1: Extensive deep venous thrombosis of the right lower extremity veins. Dr. [place] discussed with the patient's nurse, Mora, at 10/24/2024 10:[address] 10/24/24 10:16 Impression: Patchy left upper lobe pneumonia. Bibasilar atelectatic change. Labs Labs: Laboratory Results - last 24 hr 10/23/24 10/24/24 10/24/24 11:45 04:11 10:23 WBC 9.9 RBC 3.31 L Hgb 9.0 L D Hct 26.5 L MCV 80.1 MCH 27.2 MCHC 34.0 RDW 16.3 H Plt Count 291 MPV 11.5 H Immature Gran % (Auto) 0.8 H Neut % (Auto) 85.5 H Lymph % (Auto) 5.5 L Falls % (Auto) 6.0 Eos % (Auto) 1.8 Baso % (Auto) 0.4 Lymph # (Auto) 0.54 L [place] # (Auto) 0.6 Eos # (Auto) 0.2 Baso # (Auto) 0.0 Abs Immat Gran (auto) 0.08 H Absolute Neuts (auto) 8.4 H Absolute Nucleated RBC 0.000 Nucleated RBC % 0.0 PT 18.5 H INR 1.6 APTT 36.1 Sodium 152 H Potassium 3.0 L Chloride 121 H Carbon Dioxide 21 L Anion Gap 10 BUN 35 H D Creatinine 0.87 Estim Creat Clear Calc 46 Estimated GFR > 60 Glucose 101 Calcium 9.3 Iron 23 L TIBC 169 L % Saturation 14 L Ferritin 279.00 H Total Bilirubin 0.4 AST 24 ALT 12 Alkaline Phosphatase 61 NT-Pro-B Natriuret Pep 123 H Total Protein 6.9 Albumin 2.8 L Quality VTE Prophylaxis VTE prophylaxis: pharmacologic ordered
[2024-10-24 15:49] LABS: Sodium 149 mmol/L (137-145)
--- NOTE | 2024-10-24 16:35 | WPDNEURCNPN ---
Assessment and Plan Assessment and plan (1) Multiple sclerosis: Onset Date: 1997 Code(s): G35 - Multiple sclerosis Status: Chronic (2) Paroxysmal atrial fibrillation: Code(s): I48.0 - Paroxysmal atrial fibrillation Status: Resolved (3) Hypertension: Qualifiers: Hypertension type: primary hypertension Qualified Code(s): I10 - Essential (primary) hypertension Code(s): I10 - Essential (primary) hypertension Status: Resolved (4) Dysphagia: Qualifiers: Dysphagia type: unspecified Qualified Code(s): R13.10 - Dysphagia, unspecified Code(s): R13.10 - Dysphagia, unspecified Status: Acute (5) Aspiration pneumonia: Qualifiers: Aspiration pneumonia type: unspecified Laterality: unspecified laterality Lung location: unspecified part of lung Qualified Code(s): J69.0 - Pneumonitis due to inhalation of food and vomit Code(s): J69.0 - Pneumonitis due to inhalation of food and vomit Status: Acute Plan Difficulty in swallowing is most likely a separate issue. she has been evaluated by radiologist the barium swallow and also seen by speech pathologist. She faces multiple problems such as deep vein thrombosis an aspiration pneumonia acute on chronic renal failure. She is being seen by Nephrology service. Earlier this year she has had several medical problems for which she was treated. However, MRI of the brain is desirable given her diagnosis of multiple sclerosis for which she has not had MRI for quite some time. Consult date: 10/24/24 HPI: Jolene Gonzalez is a 64 year old female With history of multiple sclerosis admitted to the hospital on account of pain in the right calf which turned out to show severe venous thrombosis. She also has some degree of aspiration pneumonia and has difficulty swallowing. Patient history of atrial fibrillation and anemia. She was previously hospitalized earlier this year with pulmonary edema. She also has renal insufficiency. She has been on Tecfidera or dimethyl fumarate 240 mg twice a day for multiple sclerosis as a disease modifying therapy. She was seen about a year ago by Dr. Mullins. She is advised MRI of the brain and cervical and thoracic spine however these were not done. Patient is more less bed-bound. Currently she is on heparin and antibiotics on account of deep vein thrombosis and pneumonia. She has difficulty with speech and swallowing however she does understand and does try to talk at times. Last year she was walking with a walking stick. She was diagnosed with multiple sclerosis in 1997. She has not been regularly followed up at our Neurology office but did come 09/26/2023 to establish care. She denied any problem with the memory or mood. Review of Systems Review of Systems: ROS unobtainable: Yes unobtainable due to medical condition PMFSH Past Medical History Medical History ESTEFANÍA (acute kidney injury) Venous insufficiency of lower extremity Scoliosis History of ectopic Paroxysmal atrial fibrillation Multiple sclerosis (1997) Hypertension Cellulitis Of the left lower extreme Surgical History Surgical History History of 2 sections Family History Family History Father Cerebrovascular accident Hypertension CAD (coronary artery disease) Social History Social History Social History: The patient is lives with her son for the last 3 years until her recent hospitalization in May at which time she was discharged to [facility] for rehab. She raised 2 sons. She is currently living with her oldest son. At baseline the patient can report the walk. Code status: Full code Surrogate decision maker: Olivier Gonzalez (son) Smoking status: Never smoker Second hand tobacco smoke exposure: No Alcohol intake: never Substance use: never Substance use type: does not use Do You Feel Safe in your Home?: Yes Lack of Transportation: No Lack of Food: Never True Current Housing: I Have Housing Concerned About Future Housing: No Difficulty Paying Gas/Electric Bills: No Difficulty Paying for Meds: No Currently Unemployed: No Education: High School Diploma/GED Difficulty w/ Childcare or Family Care: Decline to Answer Spiritual care concerns: No Meds Home Medications and Allergies Home Medications ?Medication ?Instructions ?Recorded ?Confirmed ?Type dimethyl fumarate 240 mg 240 mg PO BID #180 caps 05/13/24 10/23/24 Rx capsule,delayed release (Tecfidera) valacyclovir 500 mg tablet 1,000 mg (2 x 500 mg) PO Q12HR #17 07/02/24 10/23/24 Rx (Valtrex) tabs ibuprofen 600 mg tablet 600 mg PO TID PRN pain #90 tabs 10/21/24 10/23/24 Rx polyethylene glycol 3350 17 4 g PO DAILY 10/23/24 10/23/24 History gram/dose oral powder (ClearLax) Allergies Allergy/AdvReac Type Severity Reaction Status Date / Time Seasonal Allergies Allergy Mild itchiness Uncoded 10/21/24 12:45 Vital Signs Vital Signs - 24 hr 10/23/24 18:00 10/23/24 20:00 10/23/24 20:00 Temperature 98.2 F Pulse Rate 122 H 119 H 119 H Respiratory Rate 20 20 Blood Pressure 132/63 Pulse Oximetry 98 98 Oxygen Delivery Room Air 10/23/24 20:00 10/23/24 22:00 10/24/24 00:00 Temperature 98.2 F Pulse Rate 120 H 108 H 113 H Respiratory Rate 20 Blood Pressure 126/77 Pulse Oximetry 99 Oxygen Delivery 10/24/24 00:00 10/24/24 00:00 10/24/24 02:00 Temperature Pulse Rate 111 H 101 H Respiratory Rate Blood Pressure Pulse Oximetry 99 Oxygen Delivery Room Air 10/24/24 03:52 10/24/24 04:00 10/24/24 04:00 Temperature 98.3 F Pulse Rate 108 H 96 Respiratory Rate 20 Blood Pressure 126/76 Pulse Oximetry 99 99 Oxygen Delivery Room Air 10/24/24 06:00 10/24/24 08:00 10/24/24 09:11 Temperature 98.2 F Pulse Rate 94 97 Respiratory Rate 20 Blood Pressure 127/74 Pulse Oximetry 99 95 Oxygen Delivery Room Air 10/24/24 12:00 10/24/24 16:00 Temperature 98.7 F 97.3 F L Pulse Rate 95 92 Respiratory Rate 16 20 Blood Pressure 119/67 136/76 Pulse Oximetry 100 100 Oxygen Delivery Exam Narrative: Fully conscious alert has moderate dysarthria difficult to understand at times. No aphasia. Examination head and neck shows no evidence of external injuries. Cranial nerves pupils were equal react to light visual cummins by confrontation are normal. there is no facial asymmetry. Tongue was midline. Motor system examination shows some degree of contractures but she is able to hold my fingers with her friend hands and even raise her arms above the gravity. She has will to cooperate for the lower limbs. She has significant swelling and tenderness over the right calf for the deep vein thrombosis. No involuntary movements are seen. Results Labs 10/24/24 04:11 10/24/24 15:38 Labs: Short CBC 10/24/24 Range/Units 04:11 WBC 9.9 (4.5-10.0) K/mm3 Hgb 9.0 L D (12.0-15.0) g/dL Hct 26.5 L (37.0-47.0) % Plt Count 291 (150-375) k/mm3 BMP 10/24/24 10/24/24 04:11 15:38 Sodium 152 H 149 H Potassium 3.0 L Chloride 121 H Carbon Dioxide 21 L BUN 35 H D Creatinine 0.87 Glucose 101 Calcium 9.3 Liver Function 10/24/24 Range/Units 04:11 Total Bilirubin 0.4 (0.2-1.3) mg/dL AST 24 (14-36) U/L ALT 12 (6-35) U/L Alkaline Phosphatase 61 (38-126) U/L Albumin 2.8 L (3.5-5.1) g/dL
[2024-10-24] MEDS: SOD HYPOCHLORITE 1/4 STRENGTH 473 ML 1 APPLIC TOPICAL ×2 (18:02→20:22)
[2024-10-24 20:24] LABS: Partial Thromboplastin Time 164.1 Seconds (22.3-36.8)
[2024-10-25] VITALS (22 sets, daily range): BP systolic 114–145; BP diastolic 67–98; PULSE 77–96; RESP 14–20; TEMP 36.4–37.2; O2SAT 98–100; BMI 19.1
[2024-10-25] MEDS: metroNIDAZOLE 500 MG/ISO 100ML 500 MG/100 ML BAG 100 MG IVPB ×4 (00:10→23:26)
[2024-10-25] MEDS: DEXTROSE 5% 1,000 ML 1,000 ML 100 ML IV CONT ×2 (00:11→10:51)
[2024-10-25 03:47] LABS: Basophils Absolute Auto 0.1 K/mm3 (0.0-0.1); Basophils Percent Auto 0.8 % (0.2-1.2); Eosinophils Absolute Auto 0.5 K/mm3 (0-0.3); Eosinophils Percent Auto 5.2 % (0-4.4); Hematocrit 25.5 % (37.0-47.0); Hemoglobin 8.7 g/dL (12.0-15.0); Immature Granulocyte Absolute 0.11 K/mm3 (0.00-0.031); Immature Granulocyte Percent A 1.1 % (0-0.5); Lymphocytes Absolute Auto 0.74 K/mm3 (0.9-3.2); Lymphocytes Percent Auto 7.7 % (18.3-44.2); Mean Corpuscular HGB Conc 34.1 g/dl (32-36); Mean Corpuscular Hemoglobin 27.5 pg (26-34); Mean Corpuscular Volume 80.7 fl (80-100); Mean Platelet Volume 11.2 fl (7.4-10.4); Monocytes Absolute Auto 0.7 K/mm3 (0.1-0.6); Monocytes Percent Auto 7.3 % (2.6-8.5); Neutrophils Absolute Auto 7.5 K/mm3 (1.3-6.7); Neutrophils Percent Auto 77.9 % (45.5-73.1); Platelet Count Result 308 k/mm3 (150-375); Red Blood Count 3.16 M/mm3 (4.2-5.4); Red Cell Distribution Width 16.7 % (11.5-14.5); White Blood Count 9.6 K/mm3 (4.5-10.0)
[2024-10-25 03:58] LABS: Partial Thromboplastin Time 70.2 Seconds (22.3-36.8)
[2024-10-25 04:00] LABS: Alanine Aminotransferase 12 U/L (6-35); Albumin Level 2.7 g/dL (3.5-5.1); Alkaline Phosphatase 57 U/L (38-126); Anion Gap 9 mmol/L (4-12); Aspartate Amino Transferase 22 U/L (14-36); Bilirubin,Total 0.3 mg/dL (0.2-1.3); Blood Urea Nitrogen 20 mg/dL (7-17); Calcium 9.2 mg/dL (8.4-10.2); Carbon Dioxide 20 mmol/L (22-30); Chloride 118 mmol/L (98-107); Estimated CRCL calculation 56 ml/min; Estimated Glomerular Filt Rate > 60; Glucose 118 mg/dL (65-110); Magnesium 1.6 mg/dL (1.6-2.3); Potassium 2.6 mmol/L (3.4-5.0); Sodium 147 mmol/L (137-145); Total Protein 6.6 g/dL (6.3-8.2)
[2024-10-25] MEDS: HEPARIN SODIUM 5,000 UNITS/ML VIAL 2000 UNITS IV PUSH (04:19)
[2024-10-25] MEDS: POTASSIUM CHLORIDE INJ 40 MEQ in SODIUM CHLORIDE 0.9% IV 500 ML 130 MEQ IVPB ×2 (05:19→13:26)
--- NOTE | 2024-10-25 08:02 | PM.IMPN ---
Progress Note: A&P Assessment and Plan (1) Sepsis: Qualifiers: Sepsis acute organ dysfunction status: without acute organ dysfunction Sepsis type: sepsis due to unspecified organism Qualified Code(s): A41.9 - Sepsis, unspecified organism Code(s): A41.9 - Sepsis, unspecified organism Status: Acute Assessment and Plan: resolving, vital signs within normal limits CT chest showed ANAYA pneumonia Contineu Rocephin, Flagyl and Azithromycin F/u blood cultures (2) Aspiration pneumonia: Qualifiers: Aspiration pneumonia type: unspecified Laterality: unspecified laterality Lung location: unspecified part of lung Qualified Code(s): J69.0 - Pneumonitis due to inhalation of food and vomit Code(s): J69.0 - Pneumonitis due to inhalation of food and vomit Status: Acute Assessment and Plan: Continue above care Speech therapy following (3) Dysphagia: Qualifiers: Dysphagia type: unspecified Qualified Code(s): R13.10 - Dysphagia, unspecified Code(s): R13.10 - Dysphagia, unspecified Status: Acute Assessment and Plan: - inability to swallow pills, poor p.o. intake witnessed by son - speech evaluation (4) ESTEFANÍA (acute kidney injury): Code(s): N17.9 - Acute kidney failure, unspecified Status: Acute Assessment and Plan: resolved, likely from dehydration (5) Hypernatremia: Code(s): E87.0 - Hyperosmolality and hypernatremia Status: Acute Assessment and Plan: - Na 150 on D5w monitor (6) Abnormal urinalysis: Code(s): R82.90 - Unspecified abnormal findings in urine Status: Acute Assessment and Plan: on abx monitor urine culture (7) Multiple sclerosis: Onset Date: 1997 Code(s): G35 - Multiple sclerosis Status: Chronic Assessment and Plan: - continue home medications: Tecfidera Patient is very lethargic neurology consulted (8) Paroxysmal atrial fibrillation: Code(s): I48.0 - Paroxysmal atrial fibrillation Status: Resolved Assessment and Plan: - EKG, initial: Sinus tachycardia, rate 118, possible left atrial enlargement, delayed precordial R/S transition, baseline artifact - not currently on any anti dysrhythmic or anticoagulation - telemetry monitoring, currently tachycardic in the 130s (9) Hypertension: Qualifiers: Hypertension type: primary hypertension Qualified Code(s): I10 - Essential (primary) hypertension Code(s): I10 - Essential (primary) hypertension Status: Resolved Assessment and Plan: - chronic, currently 129/92 - not currently on antihypertensives - monitor Plan Diet: heart healthy GI Prophylaxis: not currently indicated DVT Prophylaxis: Lovenox SQ Code Status: Full code Subjective Date/time seen: 10/25/24 08:02 Interval history: Patient underwent sacral ulcer debridement. Resting comfortable Review of Systems Review of Systems: All systems reviewed & are unremarkable except as noted in HPI and below Exam Const: General: comfortable and no acute distress Other: , female, nontoxic appearance HENMT: Face/Nose/Sinus: Normal nares present Mouth: Yes moist mucous membranes Eyes: General: appearance normal, both eyes and all related structures Sclera: sclerae normal Pupils: Equal, round and reactive pupils present EOM: EOMs intact bilaterally Resp: Effort & Inspection: normal respiratory effort Auscultation: clear to auscultation bilaterally Cardio: Rate: regular rate Rhythm: regular rhythm Other: S1-S2 present without murmur, rub, ectopy GI: Other: Abdomen soft, nondistended, nontender. Normoactive bowel sounds in all quadrants. Skin: General skin exam: normal color and no rashes or lesions noted Wounds: no wounds Neuro: Cranial nerves: Yes Equal, round and reactive pupils present Other: Minimally interactive, alert and awake. Extrem: Other: Asymmetric swelling to right lower extremity, 1+ edema. Psych: Other: Flat affect. Objective Data Vital Signs Vital Signs: Vital Signs - 24 hr 10/24/24 09:11 10/24/24 10:00 10/24/24 12:00 Temperature 98.7 F Pulse Rate 94 95 Respiratory Rate 16 Blood Pressure 119/67 Pulse Oximetry 95 100 Oxygen Delivery Room Air 10/24/24 12:00 10/24/24 14:00 10/24/24 16:00 Temperature 97.3 F L Pulse Rate 92 99 92 Respiratory Rate 20 Blood Pressure 136/76 Pulse Oximetry 100 Oxygen Delivery 10/24/24 16:00 10/24/24 18:00 10/24/24 20:00 Temperature Pulse Rate 92 92 Respiratory Rate Blood Pressure Pulse Oximetry Oxygen Delivery Room Air 10/24/24 20:00 10/24/24 20:00 10/24/24 22:00 Temperature 98.2 F Pulse Rate 92 95 87 Respiratory Rate 20 Blood Pressure 116/73 Pulse Oximetry 99 Oxygen Delivery 10/24/24 23:46 10/25/24 00:00 10/25/24 00:00 Temperature 98.2 F Pulse Rate 86 86 Respiratory Rate 20 Blood Pressure 131/74 Pulse Oximetry 100 Oxygen Delivery Room Air 10/25/24 02:00 10/25/24 03:50 10/25/24 04:00 Temperature 97.9 F Pulse Rate 88 90 Respiratory Rate 20 Blood Pressure 125/67 Pulse Oximetry 99 Oxygen Delivery Room Air 10/25/24 04:00 10/25/24 06:00 Temperature Pulse Rate 81 77 Respiratory Rate Blood Pressure Pulse Oximetry Oxygen Delivery Intake/Output Intake/Output: Intake & Output 10/22/24 10/23/24 10/24/24 10/25/24 23:59 23:59 23:59 23:59 Intake Total 1750 1376.0 1153.6 Output Total 647 477 9061 Balance 1350 676.0 153.6 Meds/Results Medications: Active Medications Generic Name Dose Route Start Last Admin Trade Name Freq PRN Reason Stop Dose Admin Benzonatate 100 mg 10/23/24 15:49 Benzonatate 100 Mg Capsule PO TID PRN Cough Guaifenesin 600 mg 10/23/24 15:49 Guaifenesin 12 Hr 600 Mg Tabcr PO Q12HR PRN Congestion Heparin Sodium (Porcine) 4,000 units 10/24/24 10:06 Heparin Sodium 5,000 Units/Ml Vial IV PUSH PRN PRN aPTT less than 55 seconds Heparin Sodium (Porcine) 2,000 units 10/24/24 10:06 10/25/24 04:19 Heparin Sodium 5,000 Units/Ml Vial IV PUSH 2,000 units PRN PRN Administration aPTT 55 - 70 seconds Ceftriaxone Sodium 1 gm in 50 mls @ 100 mls/hr 10/24/24 09:00 10/24/24 09:46 Rocephin 1 Gm/Ns 50 Ml IVPB 100 mls/hr QAM APRYL Administration Azithromycin 500 mg in 250 mls @ 250 mls/hr 10/24/24 09:00 10/24/24 11:55 Zithromax IVPB 250 mls/hr Q24H APRYL Administration Metronidazole 500 mg in 100 mls @ 100 mls/hr 10/23/24 16:00 10/25/24 04:11 Flagyl 500 Mg/Iso Soln 100 Ml IVPB Infused Q8H APRYL Infusion Dextrose 1,000 mls @ 100 mls/hr 10/24/24 09:40 10/25/24 00:11 Dextrose 5% 1,000 Ml IV CONT 100 mls/hr .Q10H APRYL Administration Heparin Sodium/Dextrose 25,000 units in 250 mls @ 0 mls/hr 10/24/24 10:10 10/25/24 04:58 Heparin Sodium/D5w 100 Units/Ml IV CONT 0 units/hr .Q0M APRYL 0 mls/hr Titration Protocol 0 UNITS/HR Potassium Chloride 40 meq/ 520 mls @ 130 mls/hr 10/25/24 04:37 10/25/24 05:19 Sodium Chloride IVPB 10/25/24 08:36 130 mls/hr ONCE ONE Administration Ibuprofen 600 mg 10/23/24 22:02 Ibuprofen 600 Mg Tablet PO TID PRN pain Miscellaneous Information 1 each 10/24/24 00:01 10/25/24 04:11 Clarify Miralax Dose--4 Gm Is A Pediatric Dose, Should This Be The Standard 17 Gm For An A XX 11/23/24 00:00 Not Given [facility] Miscellaneous Information 1 each 10/24/24 00:01 10/25/24 04:11 Tecfidera Is Nonform; Can Pt Use From Home? XX 11/23/24 00:00 Not Given [facility] Non-Formulary Medication 240 mg 10/24/24 09:00 Dimethyl Fumarate [Tecfidera] PO 11/23/24 08:59 BID APRYL Perflutren Lipid Microsphere 0 ml 10/24/24 08:24 Perflutren Lipid Microspheres 1.5 Ml Vial Diluted To 10 Ml Total Volume IV PUSH 10/27/24 08:24 ONCE PRN adequate visualization Protocol Polyethylene Glycol 4 gm 10/24/24 09:00 Polyethylene Glycol 3350 17 Gm Powd.Pack PO DAILY APRYL Promethazine HCl 12.5 mg 10/23/24 14:03 Promethazine Hcl 25 Mg/Ml Ampul IV PUSH Q6H PRN Nausea Sodium Hypochlorite 1 applic 10/24/24 13:40 10/24/24 20:22 Sod Hypochlorite 1/4 Strength 473 Ml TOPICAL 1 applic Q12HR APRYL Administration Valacyclovir HCl 1,000 mg 10/23/24 22:10 10/24/24 23:27 Valacyclovir Hcl 500 Mg Tablet PO Not Given Q12HR [facility] Radiology Results: ITS Impressions Chest X-Ray 10/23/24 13:30 Impression: 1: Mild interstitial edema. Venous Doppler Study 10/24/24 09:59 IMPRESSION: 1: Extensive deep venous thrombosis of the right lower extremity veins. Dr. [place] discussed with the patient's nurse, Mora, at 10/24/2024 10:[address] 10/24/24 10:16 Impression: Patchy left upper lobe pneumonia. Bibasilar atelectatic change. Modified Barium Swallow 10/24/24 15:50 IMPRESSION: Pharyngeal dysphagia with laryngeal penetration and trace aspiration Please correlate with speech pathologist findings and specific feeding recommendations. Labs Labs: Laboratory Results - last 24 hr 10/24/24 10/24/24 10/24/24 04:11 10:23 15:38 WBC RBC Hgb Hct MCV MCH MCHC RDW Plt Count MPV Immature Gran % (Auto) Neut % (Auto) Lymph % (Auto) [place] % (Auto) Eos % (Auto) Baso % (Auto) Lymph # (Auto) [place] # (Auto) Eos # (Auto) Baso # (Auto) Abs Immat Gran (auto) Absolute Neuts (auto) Absolute Nucleated RBC Nucleated RBC % PT 18.5 H INR 1.6 APTT 36.1 Sodium 149 H Potassium Chloride Carbon Dioxide Anion Gap BUN Creatinine Estim Creat Clear Calc Estimated GFR Glucose Calcium Magnesium Iron 23 L TIBC 169 L % Saturation 14 L Ferritin 279.00 H Total Bilirubin AST ALT Alkaline Phosphatase Total Protein Albumin 10/24/24 10/25/24 19:58 03:39 WBC 9.6 RBC 3.16 L Hgb 8.7 L Hct 25.5 L MCV 80.7 MCH 27.5 MCHC 34.1 RDW 16.7 H Plt Count 308 MPV 11.2 H Immature Gran % (Auto) 1.1 H Neut % (Auto) 77.9 H Lymph % (Auto) 7.7 L [place] % (Auto) 7.3 Eos % (Auto) 5.2 H Baso % (Auto) 0.8 Lymph # (Auto) 0.74 L [place] # (Auto) 0.7 H Eos # (Auto) 0.5 H Baso # (Auto) 0.1 Abs Immat Gran (auto) 0.11 H Absolute Neuts (auto) 7.5 H Absolute Nucleated RBC 0.000 Nucleated RBC % 0.0 PT INR APTT 164.1 H* 70.2 H Sodium 147 H Potassium 2.6 L* Chloride 118 H Carbon Dioxide 20 L Anion Gap 9 BUN 20 H D Creatinine 0.71 Estim Creat Clear Calc 56 Estimated GFR > 60 Glucose 118 H Calcium 9.2 Magnesium 1.6 Iron TIBC % Saturation Ferritin Total Bilirubin 0.3 AST 22 ALT 12 Alkaline Phosphatase 57 Total Protein 6.6 Albumin 2.7 L Quality VTE Prophylaxis VTE prophylaxis: pharmacologic ordered Hospitalist MIPS Advance Care Plan I have confirmed that the patient's Advanced Care Plan is present, code status is documented, or surrogate decision maker is listed in patient medical record.: Yes Medication Reconciliation I have utilized all available resources to obtain, update and review the patients current medications (includes all prescriptions, OTC, herbals, cannabis, and nutritional supplements).: Yes
[2024-10-25] MEDS: AZITHROMYCIN 500 MG/NS 250 ML 500 MG/250 ML BAG 250 MG IVPB (08:55)
[2024-10-25] MEDS: SOD HYPOCHLORITE 1/4 STRENGTH 473 ML 1 APPLIC TOPICAL (09:00)
[2024-10-25 12:34] LABS: Anion Gap 8 mmol/L (4-12); Blood Urea Nitrogen 16 mg/dL (7-17); Calcium 8.9 mg/dL (8.4-10.2); Carbon Dioxide 22 mmol/L (22-30); Chloride 114 mmol/L (98-107); Estimated CRCL calculation 58 ml/min; Estimated Glomerular Filt Rate > 60; Glucose 107 mg/dL (65-110); Potassium 2.9 mmol/L (3.4-5.0); Sodium 144 mmol/L (137-145)
[2024-10-25] MEDS: MAGNESIUM SULF 2 GM/WATER 50ML 2 GM/50 ML BAG IVPB (13:27)
--- NOTE | 2024-10-25 14:43 | PC.NURSE ---
To OR per [bed ], IV [potassium infusing ]. Report given to [ Carie, RN @ 1400]. Family at bedside
--- NOTE | 2024-10-25 15:54 | P.PNAN_ITS ---
Anes - Initial Pre Proc Eval Procedure: Operation Date: 10/25/24 15:30 Proposed Procedures p Debridement Sacral Decubitus Ulcer - Liam Bennett MD Date/Time: 10/25/24 15:54 Surgeon: Yazmin Mojica MD Pre Op Diagnosis: estefanía,pneumonia Patient Data Age: 64 Gender: F Height: 1.6 m Weight: 49 kg Last Vital Signs Temp 36.7 C 10/25/24 11:37 Pulse 96 10/25/24 12:00 Resp 18 10/25/24 11:37 BP 114/73 10/25/24 11:37 Pulse Ox 100 10/25/24 11:37 O2 Del Method Room Air 10/25/24 12:00 Allergies Allergy/AdvReac Type Severity Reaction Status Date / Time Seasonal Allergies Allergy Mild itchiness Uncoded 10/21/24 12:45 Home Medications ?Medication ?Instructions ?Recorded ?Confirmed ?Type dimethyl fumarate 240 mg 240 mg PO BID #180 caps 05/13/24 10/23/24 Rx capsule,delayed release (Tecfidera) valacyclovir 500 mg tablet 1,000 mg (2 x 500 mg) PO Q12HR #17 07/02/24 10/23/24 Rx (Valtrex) tabs ibuprofen 600 mg tablet 600 mg PO TID PRN pain #90 tabs 10/21/24 10/23/24 Rx polyethylene glycol 3350 17 4 g PO DAILY 10/23/24 10/23/24 History gram/dose oral powder (ClearLax) Laboratory Tests 10/24/24 10/25/24 10/25/24 19:58 03:39 11:48 WBC 9.6 K/mm3 (4.5-10.0) RBC 3.16 L M/mm3 (4.2-5.4) Hgb 8.7 L g/dL (12.0-15.0) Hct 25.5 L % (37.0-47.0) MCV 80.7 fl (80-100) MCH 27.5 pg (26-34) MCHC 34.1 g/dl (32-36) RDW 16.7 H % (11.5-14.5) Plt Count 308 k/mm3 (150-375) MPV 11.2 H fl (7.4-10.4) Immature Gran % (Auto) 1.1 H % (0-0.5) Neut % (Auto) 77.9 H % (45.5-73.1) Lymph % (Auto) 7.7 L % (18.3-44.2) [place] % (Auto) 7.3 % (2.6-8.5) Eos % (Auto) 5.2 H % (0-4.4) Baso % (Auto) 0.8 % (0.2-1.2) Lymph # (Auto) 0.74 L K/mm3 (0.9-3.2) [place] # (Auto) 0.7 H K/mm3 (0.1-0.6) Eos # (Auto) 0.5 H K/mm3 (0-0.3) Baso # (Auto) 0.1 K/mm3 (0.0-0.1) Abs Immat Gran (auto) 0.11 H K/mm3 (0.00-0.031) Absolute Neuts (auto) 7.5 H K/mm3 (1.3-6.7) Absolute Nucleated RBC 0.000 K/mm3 (0.0-0.012) Nucleated RBC % 0.0 % (0.0-0.2) APTT 164.1 H* Seconds 70.2 H Seconds (22.3-36.8) (22.3-36.8) Sodium 147 H mmol/L 144 mmol/L (137-145) (137-145) Potassium 2.6 L* mmol/L 2.9 L mmol/L (3.4-5.0) (3.4-5.0) Chloride 118 H mmol/L 114 H mmol/L (98-107) (98-107) Carbon Dioxide 20 L mmol/L 22 mmol/L (22-30) (22-30) Anion Gap 9 mmol/L 8 mmol/L (4-12) (4-12) BUN 20 H D mg/dL 16 mg/dL (7-17) (7-17) Creatinine 0.71 mg/dL 0.64 L mg/dL (0.7-1.0) (0.7-1.0) Estim Creat Clear Calc 56 ml/min 58 ml/min Estimated GFR > 60 > 60 (59 - ) (59 - ) Glucose 118 H mg/dL 107 mg/dL (65-110) (65-110) Calcium 9.2 mg/dL 8.9 mg/dL (8.4-10.2) (8.4-10.2) Magnesium 1.6 mg/dL (1.6-2.3) Total Bilirubin 0.3 mg/dL (0.2-1.3) AST 22 U/L (14-36) ALT 12 U/L (6-35) Alkaline Phosphatase 57 U/L (38-126) Total Protein 6.6 g/dL (6.3-8.2) Albumin 2.7 L g/dL (3.5-5.1) Patient hx anesthesia problems: none Family hx anesthesia problems: none Results Review: All pre-operative results and documents have been reviewed as part of the pre-o perative evaluation. [facility] Past Medical History Medical History ESTEFANÍA (acute kidney injury) Venous insufficiency of lower extremity Scoliosis History of ectopic Paroxysmal atrial fibrillation Multiple sclerosis (1997) Hypertension Cellulitis Of the left lower extreme Surgical History Surgical History History of 2 sections Family History Family History Father Cerebrovascular accident Hypertension CAD (coronary artery disease) Social History Social History Social History: The patient is lives with her son for the last 3 years until her recent hospitalization in May at which time she was discharged to [facility] for rehab. She raised 2 sons. She is currently living with her oldest son. At baseline the patient can report the walk. Code status: Full code Surrogate decision maker: Olivier Gonzalez (son) Smoking status: Never smoker Second hand tobacco smoke exposure: No Alcohol intake: never Substance use: never Substance use type: does not use Do You Feel Safe in your Home?: Yes Lack of Transportation: No Lack of Food: Never True Current Housing: I Have Housing Concerned About Future Housing: No Difficulty Paying Gas/Electric Bills: No Difficulty Paying for Meds: No Currently Unemployed: No Education: High School Diploma/GED Difficulty w/ Childcare or Family Care: Decline to Answer Spiritual care concerns: No Anes - Eval Final PreProcedure Day of Procedure 10/25/24 15:54 Patient weight: thin Heart: regular rate and rhythm Lungs: decreased breath sounds Airway: Mallampati scale class II Neurological: alert and oriented Last oral intake: >/= 8 hours ASA classification: IV Emergent: no Anesthetic plan: proceed Anesthesia type and monitoring: general ETT and standard monitoring Results Review: All pre-operative results and documents have been reviewed as part of the pre- operative evaluation. Informed Consent: The patient's anesthetic plan and its attendant risks and benefits were discussed with the patient/family/POA. Questions were solicited and answers provided to the satisfaction of the patient/family/POA.
[2024-10-25 15:57] LABS: Glucose Point of Care 96 mg/dl (65-105)
--- NOTE | 2024-10-25 16:03 | WPDHPUPDATE1 ---
History and Physical Update Update Date/Time: 10/25/24 16:03 History and Physical has been reviewed, including an updated exam of the patient. There are NO changes in the patient's condition. Risks, benefits, and alternatives have been discussed and questions answered. Patient agrees to proceed with procedure.
[2024-10-25 16:05] LABS: Potassium 3.5 mmol/L (3.4-5.0)
[2024-10-25] MEDS: LACTATED RINGERS 1,000 ML 30 ML IV CONT (17:10)
--- NOTE | 2024-10-25 17:59 | W.PM.PROC2 ---
Procedure Note - Detailed Date of Procedure 10/25/24 Pre-op Diagnosis Infected necrotic sacral decubitus Post-op Diagnosis Same Procedure Performed Excisional debridement infected sacral decubitus of skin, subcutaneous, and muscle-8.5 x 5.5 x 2 cm or 93.5 cubic cm Surgeon Liam Bennett MD [employer] Kristina Roth DISTANCE LEARNING ADMINISTRATOR Anesthesia General (GI IV S) and Local Indications Patient presented to the emergency room with evidence of sepsis and infection. She is bed ridden and was noted to have an unstageable, foul-smelling, necrotic sacral decubitus. This is very likely contributing to her current septic condition. She is taken to surgery now for excisional debridement. Findings Necrotic and infected tissue with some purulence noted down to sacral bone. Some undermining especially to the cephalad region noted. Description of Procedure Patient was taken to surgery and placed in right lateral decubitus position. The sacral decubitus was exposed. The whole area was prepped and draped. Local anesthetic was infiltrated all around the area of the decubitus and in the deeper tissues. Incision was then made and sharp debridement of obviously necrotic skin and subcutaneous was carried out. There was some purulent fluid about a cm deep. This was cultured for aerobes, anaerobes, and Gram stain. Debridement continued over a fairly wide area. There was undermining in the cephalad direction and some otherwise healthy skin had to be excised. All the necrotic tissue in the area was excised including skin, subcutaneous, muscle. Over the sacrum, this included exposing some of the bone. I then used cautery to achieve reasonable hemostasis although there was still some small amounts of oozing. The wound was then packed with 2 in iodoform Nu Gauze followed by 4x4s ABDs and Medipore tape. Patient was returned to a supine position with the left side slightly elevated, awakened and taken to recovery in good condition. Sponge and needle counts were correct x2. Estimated Blood Loss -20 Drains No Packing Yes Pathology Other (Cultures for aerobes, anaerobes, Gram stain) Complications None Condition Stable Disposition PACU [facility] Billing Surgery - Charge Forward: Surgery Billing (Excisional debridement infected sacral decubitus skin, subcutaneous, muscle of an area 8.5 x 5.5 x 2 cm for 93.5 cm3)
--- NOTE | 2024-10-25 18:15 | PC.NURSE ---
Returned from OR per [bed ]. Report received from [ NATALY Zeng @ [phone]].
[2024-10-25] MEDS: LACTATED RINGERS 1,000 ML 100 ML IV CONT (18:25)
--- NOTE | 2024-10-25 20:25 | PC.NURSE ---
Dr. Bennett and Dr. PIPER notified of Heparin gtt on hold. Dr. Bennett states leave it on hold.
--- NOTE | 2024-10-25 23:30 | PC.NURSE ---
This patient, Jolene Gonzalez, was transferred to 241 by bed with two nurses at beside on 10/25/24 at 2317. Personal belongings sent with patient. Report given to Dwain RN at 2855. Appropriate documentation sent with patient.
[2024-10-26] VITALS (11 sets, daily range): BP systolic 118–146; BP diastolic 74–88; PULSE 88–108; RESP 16–18; TEMP 36.3–37.9; O2SAT 96–99
[2024-10-26 05:49] LABS: Hematocrit 23.8 % (37.0-47.0); Hemoglobin 8.1 g/dL (12.0-15.0); Mean Corpuscular Hemoglobin 27.3 pg (26-34); Mean Corpuscular Volume 80.1 fl (80-100); Platelet Count Result 294 k/mm3 (150-375); Red Blood Count 2.97 M/mm3 (4.2-5.4); Red Cell Distribution Width 16.5 % (11.5-14.5)
[2024-10-26 06:04] LABS: Alanine Aminotransferase 10 U/L (6-35); Albumin Level 2.5 g/dL (3.5-5.1); Alkaline Phosphatase 54 U/L (38-126); Anion Gap 10 mmol/L (4-12); Aspartate Amino Transferase 18 U/L (14-36); Bilirubin,Total 0.3 mg/dL (0.2-1.3); Blood Urea Nitrogen 9 mg/dL (7-17); Calcium 8.5 mg/dL (8.4-10.2); Carbon Dioxide 20 mmol/L (22-30); Chloride 111 mmol/L (98-107); Estimated CRCL calculation 65 ml/min; Estimated Glomerular Filt Rate > 60; Glucose 89 mg/dL (65-110); Potassium 3.1 mmol/L (3.4-5.0); Sodium 141 mmol/L (137-145); Total Protein 6.2 g/dL (6.3-8.2)
[2024-10-26] MEDS: metroNIDAZOLE 500 MG/ISO 100ML 500 MG/100 ML BAG 100 MG IVPB ×2 (07:56→16:35)
[2024-10-26] MEDS: ENOXAPARIN 40 MG/0.4 ML SYRINGE SUB-Q (08:56)
[2024-10-26] MEDS: valACYclovir HCL 500 MG TABLET 1000 MG PO ×2 (08:56→21:48)
[2024-10-26] MEDS: AZITHROMYCIN 500 MG/NS 250 ML 500 MG/250 ML BAG 250 MG IVPB (09:32)
--- NOTE | 2024-10-26 14:30 | PM.IMPN ---
Progress Note: A&P Assessment and Plan (1) Sepsis: Qualifiers: Sepsis acute organ dysfunction status: without acute organ dysfunction Sepsis type: sepsis due to unspecified organism Qualified Code(s): A41.9 - Sepsis, unspecified organism Code(s): A41.9 - Sepsis, unspecified organism Status: Acute Assessment and Plan: resolving, vital signs within normal limits CT chest showed ANAYA pneumonia Contineu Rocephin, Flagyl and Azithromycin F/u blood cultures (2) Aspiration pneumonia: Qualifiers: Aspiration pneumonia type: unspecified Laterality: unspecified laterality Lung location: unspecified part of lung Qualified Code(s): J69.0 - Pneumonitis due to inhalation of food and vomit Code(s): J69.0 - Pneumonitis due to inhalation of food and vomit Status: Acute Assessment and Plan: Continue above care Speech therapy following (3) Dysphagia: Qualifiers: Dysphagia type: unspecified Qualified Code(s): R13.10 - Dysphagia, unspecified Code(s): R13.10 - Dysphagia, unspecified Status: Acute Assessment and Plan: - inability to swallow pills, poor p.o. intake witnessed by son - speech evaluation (4) ESTEFANÍA (acute kidney injury): Code(s): N17.9 - Acute kidney failure, unspecified Status: Acute Assessment and Plan: resolved, likely from dehydration (5) Hypernatremia: Code(s): E87.0 - Hyperosmolality and hypernatremia Status: Acute Assessment and Plan: - Na 150 on D5w monitor (6) Abnormal urinalysis: Code(s): R82.90 - Unspecified abnormal findings in urine Status: Acute Assessment and Plan: on abx monitor urine culture (7) Multiple sclerosis: Onset Date: 1997 Code(s): G35 - Multiple sclerosis Status: Chronic Assessment and Plan: - continue home medications: Tecfidera Patient is very lethargic neurology consulted (8) Paroxysmal atrial fibrillation: Code(s): I48.0 - Paroxysmal atrial fibrillation Status: Resolved Assessment and Plan: - EKG, initial: Sinus tachycardia, rate 118, possible left atrial enlargement, delayed precordial R/S transition, baseline artifact - not currently on any anti dysrhythmic or anticoagulation - telemetry monitoring, currently tachycardic in the 130s (9) Hypertension: Qualifiers: Hypertension type: primary hypertension Qualified Code(s): I10 - Essential (primary) hypertension Code(s): I10 - Essential (primary) hypertension Status: Resolved Assessment and Plan: - chronic, currently 129/92 - not currently on antihypertensives - monitor (10) DVT (deep venous thrombosis): Code(s): I82.409 - Acute embolism and thrombosis of unspecified deep veins of unspecified lower extremity Status: Acute Assessment and Plan: Patient has extensive DVT on her right lower extremity Patient is on heparin drip Will switch to oral anticoagulation (11) Sacral ulcer: Code(s): L98.429 - Non-pressure chronic ulcer of back with unspecified severity Status: Acute Assessment and Plan: Patient underwent a debridement with surgery on 10/25 Continue wound care Plan Diet: heart healthy GI Prophylaxis: not currently indicated DVT Prophylaxis: Lovenox SQ Code Status: Full code Subjective Date/time seen: 10/26/24 14:30 Interval history: Had a long discussion with the her son. Patient is a bed-bound for past few years due to multiple sclerosis. Patient underwent sacral ulcer debridement. Patient also has extensive DVT in her right leg. Patient heparin is on hold due to recent surgical procedure and will be restarted according to surgeon recommendation. Patient's son's expectation is to make her mother walk and gain strength. Discussed with neurology and he reported patient is in the end stage of multiple sclerosis and the chances of getting back to baseline is slim and I agree with his comment. Review of Systems Review of Systems: All systems reviewed & are unremarkable except as noted in HPI and below Exam Const: General: comfortable and no acute distress Other: , female, nontoxic appearance HENMT: Face/Nose/Sinus: Normal nares present Mouth: Yes moist mucous membranes Eyes: General: appearance normal, both eyes and all related structures Sclera: sclerae normal Pupils: Equal, round and reactive pupils present EOM: EOMs intact bilaterally Resp: Effort & Inspection: normal respiratory effort Auscultation: clear to auscultation bilaterally Cardio: Rate: regular rate Rhythm: regular rhythm Other: S1-S2 present without murmur, rub, ectopy GI: Other: Abdomen soft, nondistended, nontender. Normoactive bowel sounds in all quadrants. Skin: General skin exam: normal color and no rashes or lesions noted Wounds: no wounds Neuro: Cranial nerves: Yes Equal, round and reactive pupils present Other: Minimally interactive, alert and awake. Extrem: Other: Asymmetric swelling to right lower extremity, 1+ edema. Psych: Other: Flat affect. Objective Data Vital Signs Vital Signs: Vital Signs - 24 hr 10/25/24 17:10 10/25/24 17:25 10/25/24 17:40 Temperature 97.9 F Pulse Rate 95 90 88 Respiratory Rate 15 16 14 Blood Pressure 114/98 H 118/67 120/69 Pulse Oximetry 99 100 100 Oxygen Delivery Room Air Room Air Room Air 10/25/24 17:55 10/25/24 18:09 10/25/24 18:11 Temperature 98.1 F 97.8 F Pulse Rate 86 87 90 Respiratory Rate 15 15 18 Blood Pressure 118/69 128/73 145/80 H Pulse Oximetry 99 100 100 Oxygen Delivery Room Air Room Air 10/25/24 18:26 10/25/24 18:56 10/25/24 19:56 Temperature 98.4 F 98.1 F 98.3 F Pulse Rate 88 85 88 Respiratory Rate 16 18 17 Blood Pressure 139/80 136/78 131/77 Pulse Oximetry 100 98 100 Oxygen Delivery 10/25/24 20:00 10/25/24 20:00 10/25/24 21:00 Temperature 99.0 F Pulse Rate 86 92 Respiratory Rate 16 Blood Pressure 128/74 Pulse Oximetry 99 Oxygen Delivery Room Air 10/25/24 21:30 10/25/24 22:11 10/26/24 00:00 Temperature 97.6 F 97.6 F Pulse Rate 96 94 99 Respiratory Rate 17 17 Blood Pressure 132/67 133/69 Pulse Oximetry 99 99 Oxygen Delivery 10/26/24 03:56 10/26/24 04:00 10/26/24 07:56 Temperature 97.4 F L 98.3 F Pulse Rate 91 88 100 Respiratory Rate 18 16 Blood Pressure 146/77 H 122/88 Pulse Oximetry 96 98 Oxygen Delivery 10/26/24 08:03 10/26/24 09:25 10/26/24 12:03 Temperature Pulse Rate 89 97 Respiratory Rate 16 Blood Pressure Pulse Oximetry 98 Oxygen Delivery Room Air 10/26/24 12:03 Temperature Pulse Rate 97 Respiratory Rate Blood Pressure Pulse Oximetry Oxygen Delivery Intake/Output Intake/Output: Intake & Output 10/23/24 10/24/24 10/25/24 10/26/24 23:59 23:59 23:59 23:59 Intake Total 1750 1676.0 3393.6 500 Output Total 995 625 9421 400 Balance 1350 976.0 2093.6 100 Meds/Results Medications: Active Medications Generic Name Dose Route Start Last Admin Trade Name Freq PRN Reason Stop Dose Admin Acetaminophen 500 mg 10/25/24 18:11 Acetaminophen 500 Mg Tablet PO Q6H PRN Pain Rated 1-3 Benzonatate 100 mg 10/23/24 15:49 Benzonatate 100 Mg Capsule PO TID PRN Cough Enoxaparin Sodium 40 mg 10/26/24 09:00 10/26/24 08:56 Enoxaparin 40 Mg/0.4 Ml Syringe SUB-Q 40 mg DAILY APRYL Administration Fentanyl Citrate 12.5 mcg 10/25/24 18:11 Fentanyl Citrate Inj (*Crx) 100 Mcg/2 Ml Vial IV PUSH Q2H PRN Breakthrough Pain Rated 4-6 or NPO Fentanyl Citrate 25 mcg 10/25/24 18:11 Fentanyl Citrate Inj (*Crx) 100 Mcg/2 Ml Vial IV PUSH Q2H PRN Breakthrough Pain Rated 7-10 or NPO Guaifenesin 600 mg 10/23/24 15:49 Guaifenesin 12 Hr 600 Mg Tabcr PO Q12HR PRN Congestion Heparin Sodium (Porcine) 4,000 units 10/24/24 10:06 Heparin Sodium 5,000 Units/Ml Vial IV PUSH PRN PRN aPTT less than 55 seconds Heparin Sodium (Porcine) 2,000 units 10/24/24 10:06 10/25/24 04:19 Heparin Sodium 5,000 Units/Ml Vial IV PUSH 2,000 units PRN PRN Administration aPTT 55 - 70 seconds Ceftriaxone Sodium 1 gm in 50 mls @ 100 mls/hr 10/24/24 09:00 10/26/24 09:25 Rocephin 1 Gm/Ns 50 Ml IVPB Infused QAM APRYL Infusion Azithromycin 500 mg in 250 mls @ 250 mls/hr 10/24/24 09:00 10/26/24 10:30 Zithromax IVPB Infused Q24H APRYL Infusion Metronidazole 500 mg in 100 mls @ 100 mls/hr 10/23/24 16:00 10/26/24 08:54 Flagyl 500 Mg/Iso Soln 100 Ml IVPB Infused Q8H APRYL Infusion Heparin Sodium/Dextrose 25,000 units in 250 mls @ 0 mls/hr 10/24/24 10:10 10/25/24 04:58 Heparin Sodium/D5w 100 Units/Ml IV CONT 0 units/hr .Q0M APRYL 0 mls/hr Titration Protocol 0 UNITS/HR Ibuprofen 800 mg in 200 mls @ 400 mls/hr 10/25/24 18:11 Caldolor 800 Mg/200 Ml IVPB Q6H PRN Breakthrough Pain Rated 1-3 or NPO Ibuprofen 600 mg 10/23/24 22:02 Ibuprofen 600 Mg Tablet PO TID PRN pain Miscellaneous Information 1 each 10/24/24 00:01 10/26/24 10:12 Tecfidera Is Nonform; Can Pt Use From Home? XX Not Given CLARIFY APRYL Naloxone HCl 0.1 mg 10/25/24 18:11 Naloxone Hcl 0.4 Mg/Ml Vial IV PUSH Q2M PRN Opiate Reversal Non-Formulary Medication 240 mg 10/24/24 09:00 Dimethyl Fumarate [Tecfidera] PO 11/23/24 08:59 BID APRYL Oxycodone/Acetaminophen 0.5 tablet 10/25/24 18:11 Oxycodone/Acetaminophen (*Crx) 5-325 Mg Tablet PO Q4H PRN Pain Rated 4-6 Perflutren Lipid Microsphere 0 ml 10/24/24 08:24 Perflutren Lipid Microspheres 1.5 Ml Vial Diluted To 10 Ml Total Volume IV PUSH 10/27/24 08:24 ONCE PRN adequate visualization Protocol Polyethylene Glycol 17 gm 10/27/24 10:00 Polyethylene Glycol 3350 17 Gm Powd.Pack PO QAM APRYL Promethazine HCl 12.5 mg 10/23/24 14:03 Promethazine Hcl 25 Mg/Ml Ampul IV PUSH Q6H PRN Nausea Valacyclovir HCl 1,000 mg 10/23/24 22:10 10/26/24 08:56 Valacyclovir Hcl 500 Mg Tablet PO 1,000 mg Q12HR APRYL Administration Radiology Results: ITS Impressions Chest X-Ray 10/23/24 13:30 Impression: 1: Mild interstitial edema. Venous Doppler Study 10/24/24 09:59 IMPRESSION: 1: Extensive deep venous thrombosis of the right lower extremity veins. Dr. [place] discussed with the patient's nurse, Mora at 10/24/2024 10:[address] 10/24/24 10:16 Impression: Patchy left upper lobe pneumonia. Bibasilar atelectatic change. Modified Barium Swallow 10/24/24 15:50 IMPRESSION: Pharyngeal dysphagia with laryngeal penetration and trace aspiration Please correlate with speech pathologist findings and specific feeding recommendations. Brain MRI 10/25/24 16:48 IMPRESSION: 1. No acute intracranial process. 2. Extensive cerebral white matter T2 hyperintensity symmetric confluent throughout the bilateral periventricular white matter most likely sequela of chronic small vessel ischemic disease although superimposed multiple sclerosis cannot be excluded. Labs Labs: Laboratory Results - last 24 hr 10/25/24 10/25/24 10/26/24 15:11 15:55 05:13 WBC 10.0 RBC 2.97 L Hgb 8.1 L Hct 23.8 L MCV 80.1 MCH 27.3 MCHC 34.0 RDW 16.5 H Plt Count 294 MPV 12.0 H Sodium 141 Potassium 3.5 3.1 L Chloride 111 H Carbon Dioxide 20 L Anion Gap 10 BUN 9 D Creatinine 0.56 L Estim Creat Clear Calc 65 Estimated GFR > 60 Glucose 89 POC Capillary Glucose 96 Calcium 8.5 Total Bilirubin 0.3 AST 18 ALT 10 Alkaline Phosphatase 54 Total Protein 6.2 L Albumin 2.5 L Quality VTE Prophylaxis VTE prophylaxis: pharmacologic ordered Hospitalist [facility] Advance Care Plan I have confirmed that the patient's Advanced Care Plan is present, code status is documented, or surrogate decision maker is listed in patient medical record.: Yes Medication Reconciliation I have utilized all available resources to obtain, update and review the patients current medications (includes all prescriptions, OTC, herbals, cannabis, and nutritional supplements).: Yes
[2024-10-27] VITALS (9 sets, daily range): BP systolic 138–155; BP diastolic 72–83; PULSE 72–103; RESP 16–20; TEMP 36.8–37.1; O2SAT 96–100
[2024-10-27] MEDS: metroNIDAZOLE 500 MG/ISO 100ML 500 MG/100 ML BAG 100 MG IVPB ×2 (00:40→10:08)
[2024-10-27 04:53] LABS: Hematocrit 24.9 % (37.0-47.0); Hemoglobin 8.8 g/dL (12.0-15.0); Mean Corpuscular HGB Conc 35.3 g/dl (32-36); Mean Corpuscular Hemoglobin 27.6 pg (26-34); Mean Corpuscular Volume 78.1 fl (80-100); Mean Platelet Volume 10.9 fl (7.4-10.4); Platelet Count Result 338 k/mm3 (150-375); Red Blood Count 3.19 M/mm3 (4.2-5.4); Red Cell Distribution Width 16.4 % (11.5-14.5); White Blood Count 10.8 K/mm3 (4.5-10.0)
[2024-10-27 05:10] LABS: Alanine Aminotransferase 10 U/L (6-35); Albumin Level 2.6 g/dL (3.5-5.1); Alkaline Phosphatase 55 U/L (38-126); Anion Gap 11 mmol/L (4-12); Aspartate Amino Transferase 20 U/L (14-36); Bilirubin,Total 0.4 mg/dL (0.2-1.3); Blood Urea Nitrogen 7 mg/dL (7-17); Calcium 8.5 mg/dL (8.4-10.2); Carbon Dioxide 21 mmol/L (22-30); Chloride 107 mmol/L (98-107); Estimated CRCL calculation 63 ml/min; Estimated Glomerular Filt Rate > 60; Glucose 87 mg/dL (65-110); Potassium 2.7 mmol/L (3.4-5.0); Sodium 139 mmol/L (137-145); Total Protein 6.4 g/dL (6.3-8.2)
[2024-10-27] MEDS: POTASSIUM CHLORIDE INJ 40 MEQ in SODIUM CHLORIDE 0.9% IV 500 ML 130 MEQ IVPB (06:05)
[2024-10-27] MEDS: POTASSIUM CHLORIDE 20 MEQ PACKET (FOR LIQUID) 40 MEQ PO ×2 (06:06→11:15)
[2024-10-27 09:42] LABS: Magnesium 1.4 mg/dL (1.6-2.3)
[2024-10-27] MEDS: valACYclovir HCL 500 MG TABLET 1000 MG PO ×2 (10:00→21:57)
[2024-10-27] MEDS: AZITHROMYCIN 500 MG/NS 250 ML 500 MG/250 ML BAG 250 MG IVPB (10:08)
[2024-10-27] MEDS: polyethylene glycoL 3350 17 GM POWD.PACK PO (11:20)
[2024-10-27] MEDS: HEPARIN SODIUM 5,000 UNITS/ML VIAL 2000 UNITS IV PUSH (12:21)
[2024-10-27] MEDS: HEPARIN SOD/D5W 100 UNITS/ML 25,000 UNITS/250 ML BAG 10 UNITS IV CONT (12:22)
[2024-10-27 14:06] LABS: Potassium 3.7 mmol/L (3.4-5.0)
--- NOTE | 2024-10-27 14:50 | P.PNIM_ITS ---
Progress Note: A&P Assessment and Plan (1) Sepsis: Qualifiers: Sepsis acute organ dysfunction status: without acute organ dysfunction Sepsis type: sepsis due to unspecified organism Qualified Code(s): A41.9 - S epsis, unspecified organism Code(s): A41.9 - Sepsis, unspecified organism Status: Acute Assessment and Plan: resolving, vital signs within normal limits CT chest showed ANAYA pneumonia Discontinue Rocephin, Flagyl and Azithromycin Started levofloxacin p.o. q.d. for 5 Negative blood cultures (2) Aspiration pneumonia: Qualifiers: Aspiration pneumonia type: unspecified Laterality: unspecified laterality Lung location: unspecified part of lung Qualified Code(s): J69.0 - Pneumonitis due to inhalation of food and vomit Code(s): J69.0 - Pneumonitis due to inhalation of food and vomit Status: Acute Assessment and Plan: Continue above care Speech therapy following (3) Dysphagia: Qualifiers: Dysphagia type: unspecified Qualified Code(s): R13.10 - Dysphagia, unspecified Code(s): R13.10 - Dysphagia, unspecified Status: Acute Assessment and Plan: - inability to swallow pills, poor p.o. intake witnessed by son - speech evaluation (4) ESTEFANÍA (acute kidney injury): Code(s): N17.9 - Acute kidney failure, unspecified Status: Acute Assessment and Plan: resolved, likely from dehydration (5) Hypernatremia: Code(s): E87.0 - Hyperosmolality and hypernatremia Status: Acute Assessment and Plan: - Na 150 on D5w monitor (6) Abnormal urinalysis: Code(s): R82.90 - Unspecified abnormal findings in urine Status: Acute Assessment and Plan: on abx monitor urine culture (7) Multiple sclerosis: Onset Date: 1997 Code(s): G35 - Multiple sclerosis Status: Chronic Assessment and Plan: - continue home medications: Tecfidera Patient is very lethargic neurology consulted (8) Paroxysmal atrial fibrillation: Code(s): I48.0 - Paroxysmal atrial fibrillation Status: Resolved Assessment and Plan: - EKG, initial: Sinus tachycardia, rate 118, possible left atrial enlargement, delayed precordial R/S transition, baseline artifact - not currently on any anti dysrhythmic or anticoagulation - telemetry monitoring, currently tachycardic in the 130s (9) Hypertension: Qualifiers: Hypertension type: primary hypertension Qualified Code(s): I10 - Essential (primary) hypertension Code(s): I10 - Essential (primary) hypertension Status: Resolved Assessment and Plan: - chronic, currently 129/92 - not currently on antihypertensives - monitor (10) DVT (deep venous thrombosis): Code(s): I82.409 - Acute embolism and thrombosis of unspecified deep veins of unspecified lower extremity Status: Acute Assessment and Plan: Patient has extensive DVT on her right lower extremity Patient is on heparin drip Will switch to oral anticoagulation (11) Sacral ulcer: Code(s): L98.429 - Non-pressure chronic ulcer of back with unspecified severity Status: Acute Assessment and Plan: Patient underwent a debridement with surgery on 10/25 Continue wound care Plan Diet: heart healthy GI Prophylaxis: not currently indicated DVT Prophylaxis: Lovenox SQ Code Status: Full code Subjective Date/time seen: 10/27/24 14:50 Interval history: As mentioned previous patient has late stage MS and her prognosis is guarded. Family wants patient to get rehab and walk. Discussed about palliative care/hospice with her son. He will talk to his father and brother . Patient has been bed-bound and has sacral ulcer and extensive right-sided DVT. Patient heparin was on hold due to recent sacral debridement but it has been restarted t justus. Will change to oral anticoagulant after surgery team decides no more anticipated surgical procedures. Review of Systems Review of Systems: All systems reviewed & are unremarkable except as noted in HPI and below Exam Const: General: comfortable and no acute distress Other: , female, nontoxic appearance HENMT: Face/Nose/Sinus: Normal nares present Mouth: Yes moist mucous membranes Eyes: General: appearance normal, both eyes and all related structures Sclera: sclerae normal Pupils: Equal, round and reactive pupils present EOM: EOMs intact bilaterally Resp: Effort & Inspection: normal respiratory effort Auscultation: clear to auscultation bilaterally Cardio: Rate: regular rate Rhythm: regular rhythm Other: S1-S2 present without murmur, rub, ectopy GI: Other: Abdomen soft, nondistended, nontender. Normoactive bowel sounds in all quadrant s. Skin: General skin exam: normal color and no rashes or lesions noted Wounds: no wounds Neuro: Cranial nerves: Yes Equal, round and reactive pupils present Other: Minimally interactive, alert and awake. Extrem: Other: Asymmetric swelling to right lower extremity, 1+ edema. Psych: Other: Flat affect. Objective Data Vital Signs Vital Signs: Vital Signs - 24 hr 10/26/24 16:03 10/26/24 20:00 10/26/24 20:00 Temperature Pulse Rate 108 H 107 H Respiratory Rate Blood Pressure Pulse Oximetry Oxygen Delivery Room Air 10/26/24 20:04 10/27/24 00:00 10/27/24 04:00 Temperature 100.2 F H Pulse Rate 105 H 97 96 Respiratory Rate 18 Blood Pressure 118/74 Pulse Oximetry 97 Oxygen Delivery 10/27/24 04:23 10/27/24 10:30 Temperature 98.5 F Pulse Rate 100 Respiratory Rate 16 Blood Pressure 155/83 H Pulse Oximetry 97 Oxygen Delivery Room Air Intake/Output Intake/Output: Intake & Output 10/24/24 10/25/24 10/26/24 10/27/24 23:59 23:59 23:59 23:59 Intake Total 1676.0 3393.6 1560 910 Output Total 700 1300 1200 Balance 976.0 2093.6 360 910 Meds/Results Medications: Active Medications Generic Name Dose Route Start Last Admin Trade Name Freq PRN Reason Stop Dose Admin Acetaminophen 500 mg 10/25/24 18:11 Acetaminophen 500 Mg Tablet PO Q6H PRN Pain Rated 1-3 Benzonatate 100 mg 10/23/24 15:49 Benzonatate 100 Mg Capsule PO TID PRN Cough Fentanyl Citrate 12.5 mcg 10/25/24 18:11 Fentanyl Citrate Inj (*Crx) 100 Mcg/2 Ml Vial IV PUSH Q2H PRN Breakthrough Pain Rated 4-6 or NPO Fentanyl Citrate 25 mcg 10/25/24 18:11 Fentanyl Citrate Inj (*Crx) 100 Mcg/2 Ml Vial IV PUSH Q2H PRN Breakthrough Pain Rated 7-10 or NPO Guaifenesin 600 mg 10/23/24 15:49 Guaifenesin 12 Hr 600 Mg Tabcr PO Q12HR PRN Congestion Heparin Sodium (Porcine) 4,000 units 10/24/24 10:06 Heparin Sodium 5,000 Units/Ml Vial IV PUSH PRN PRN aPTT less than 55 seconds Heparin Sodium (Porcine) 2,000 units 10/24/24 10:06 10/25/24 04:19 Heparin Sodium 5,000 Units/Ml Vial IV PUSH 2,000 units PRN PRN Administration aPTT 55 - 70 seconds Ceftriaxone Sodium 1 gm in 50 mls @ 100 mls/hr 10/24/24 09:00 10/27/24 11:21 Rocephin 1 Gm/Ns 50 Ml IVPB 100 mls/hr QAM APRYL Administration Azithromycin 500 mg in 250 mls @ 250 mls/hr 10/24/24 09:00 10/27/24 10:08 Zithromax IVPB 250 mls/hr Q24H APRYL Administration Metronidazole 500 mg in 100 mls @ 100 mls/hr 10/23/24 16:00 10/27/24 10:08 Flagyl 500 Mg/Iso Soln 100 Ml IVPB 100 mls/hr Q8H APRYL Administration Heparin Sodium/Dextrose 25,000 units in 250 mls @ 10 mls/hr 10/24/24 10:10 10/27/24 12:22 Heparin Sodium/D5w 100 Units/Ml IV CONT 1,000 units/hr .Q24H APRYL 10 mls/hr Administration Protocol 1,000 UNITS/HR Ibuprofen 800 mg in 200 mls @ 400 mls/hr 10/25/24 18:11 Caldolor 800 Mg/200 Ml IVPB Q6H PRN Breakthrough Pain Rated 1-3 or NPO Ibuprofen 600 mg 10/23/24 22:02 Ibuprofen 600 Mg Tablet PO TID PRN pain Miscellaneous Information 1 each 10/24/24 00:01 10/26/24 10:12 Tecfidera Is Nonform; Can Pt Use From Home? XX Not Given [facility]IFY [facility] Naloxone HCl 0.1 mg 10/25/24 18:11 Naloxone Hcl 0.4 Mg/Ml Vial IV PUSH Q2M PRN Opiate Reversal Non-Formulary Medication 240 mg 10/24/24 09:00 Dimethyl Fumarate [Tecfidera] PO 11/23/24 08:59 BID APRYL Oxycodone/Acetaminophen 0.5 tablet 10/25/24 18:11 Oxycodone/Acetaminophen (*Crx) 5-325 Mg Tablet PO Q4H PRN Pain Rated 4-6 Polyethylene Glycol 17 gm 10/27/24 10:00 10/27/24 11:20 Polyethylene Glycol 3350 17 Gm Powd.Pack PO 17 gm QAM APRYL Administration Promethazine HCl 12.5 mg 10/23/24 14:03 Promethazine Hcl 25 Mg/Ml Ampul IV PUSH Q6H PRN Nausea Valacyclovir HCl 1,000 mg 10/23/24 22:10 10/27/24 10:00 Valacyclovir Hcl 500 Mg Tablet PO 1,000 mg Q12HR APRYL Administration Radiology Results: ITS Impressions Chest X-Ray 10/23/24 13:30 Impression: 1: Mild interstitial edema. Venous Doppler Study 10/24/24 09:59 IMPRESSION: 1: Extensive deep venous thrombosis of the right lower extremity veins. Dr. [place] discussed with the patient's nurse, Mora, at 10/24/2024 10:[address] 10/24/24 10:16 Impression: Patchy left upper lobe pneumonia. Bibasilar atelectatic change. Modified Barium Swallow 10/24/24 15:50 IMPRESSION: Pharyngeal dysphagia with laryngeal penetration and trace aspiration Please correlate with speech pathologist findings and specific feeding recommendations. Brain MRI 10/25/24 16:48 IMPRESSION: 1. No acute intracranial process. 2. Extensive cerebral white matter T2 hyperintensity symmetric confluent throughout the bilateral periventricular white matter most likely sequela of chronic small vessel ischemic disease although superimposed multiple sclerosis cannot be excluded. Labs Labs: Laboratory Results - last 24 hr 10/27/24 10/27/24 04:34 13:56 WBC 10.8 H RBC 3.19 L Hgb 8.8 L Hct 24.9 L MCV 78.1 L MCH 27.6 MCHC 35.3 RDW 16.4 H Plt Count 338 MPV 10.9 H Sodium 139 Potassium 2.7 L* 3.7 Chloride 107 Carbon Dioxide 21 L Anion Gap 11 BUN 7 Creatinine 0.63 L Estim Creat Clear Calc 63 Estimated GFR > 60 Glucose 87 Calcium 8.5 Magnesium 1.4 L Total Bilirubin 0.4 AST 20 ALT 10 Alkaline Phosphatase 55 Total Protein 6.4 Albumin 2.6 L Quality VTE Prophylaxis VTE prophylaxis: pharmacologic ordered Hospitalist [facility] Advance Care Plan I have confirmed that the patient's Advanced Care Plan is present, code status is documented, or surrogate decision maker is listed in patient medical record.: Yes Medication Reconciliation I have utilized all available resources to obtain, update and review the patients current medications (includes all prescriptions, OTC, herbals, cannabis, and nutritional supplements).: Yes
[2024-10-27 19:01] LABS: Partial Thromboplastin Time 83.6 Seconds (22.3-36.8)
[2024-10-28] VITALS (9 sets, daily range): BP systolic 130–136; BP diastolic 74–85; PULSE 82–112; RESP 16–20; TEMP 36.5–37.1; O2SAT 92–100
[2024-10-28 01:00] LABS: Partial Thromboplastin Time 139.3 Seconds (22.3-36.8)
[2024-10-28 05:15] LABS: Hematocrit 24.8 % (37.0-47.0); Hemoglobin 8.5 g/dL (12.0-15.0); Mean Corpuscular HGB Conc 34.3 g/dl (32-36); Mean Corpuscular Hemoglobin 27.2 pg (26-34); Mean Corpuscular Volume 79.2 fl (80-100); Mean Platelet Volume 11.3 fl (7.4-10.4); Platelet Count Result 351 k/mm3 (150-375); Red Blood Count 3.13 M/mm3 (4.2-5.4); Red Cell Distribution Width 16.6 % (11.5-14.5); White Blood Count 11.2 K/mm3 (4.5-10.0)
[2024-10-28 05:23] LABS: Alanine Aminotransferase 10 U/L (6-35); Albumin Level 2.4 g/dL (3.5-5.1); Alkaline Phosphatase 49 U/L (38-126); Anion Gap 6 mmol/L (4-12); Aspartate Amino Transferase 27 U/L (14-36); Bilirubin,Total 0.3 mg/dL (0.2-1.3); Blood Urea Nitrogen 6 mg/dL (7-17); Calcium 8.7 mg/dL (8.4-10.2); Carbon Dioxide 25 mmol/L (22-30); Chloride 110 mmol/L (98-107); Estimated CRCL calculation 67 ml/min; Estimated Glomerular Filt Rate > 60; Glucose 99 mg/dL (65-110); Potassium 3.2 mmol/L (3.4-5.0); Sodium 141 mmol/L (137-145); Total Protein 6.1 g/dL (6.3-8.2)
--- NOTE | 2024-10-28 07:43 | P.PNIM_ITS ---
Progress Note: A&P Assessment and Plan (1) Sepsis: Qualifiers: Sepsis acute organ dysfunction status: without acute organ dysfunction Sepsis type: sepsis due to unspecified organism Qualified Code(s): A41.9 - S epsis, unspecified organism Code(s): A41.9 - Sepsis, unspecified organism Status: Acute Assessment and Plan: resolving, vital signs within normal limits CT chest showed ANAYA pneumonia Discontinue Rocephin, Flagyl and Azithromycin Started levofloxacin p.o. q.d. for 5 days Negative blood cultures (2) Aspiration pneumonia: Qualifiers: Aspiration pneumonia type: unspecified Laterality: unspecified laterality Lung location: unspecified part of lung Qualified Code(s): J69.0 - Pneumonitis due to inhalation of food and vomit Code(s): J69.0 - Pneumonitis due to inhalation of food and vomit Status: Acute Assessment and Plan: Continue above care Speech therapy following (3) Dysphagia: Qualifiers: Dysphagia type: unspecified Qualified Code(s): R13.10 - Dysphagia, unspecified Code(s): R13.10 - Dysphagia, unspecified Status: Acute Assessment and Plan: - inability to swallow pills, poor p.o. intake witnessed by son -Will repeat MBS today due to evidence of choking. -10/28: Patient underwent MBS and performed better than last time. Patient tolerated regular consistently oral feedings in the upright position -Patient previously underwent MBS on 10/24/2024 which showed pharyngeal dysphagia with laryngeal penetration and trace aspiration. - speech evaluation (4) ESTEFANÍA (acute kidney injury): Code(s): N17.9 - Acute kidney failure, unspecified Status: Acute Assessment and Plan: resolved, likely from dehydration (5) Hypernatremia: Code(s): E87.0 - Hyperosmolality and hypernatremia Status: Acute Assessment and Plan: - Na 150 on D5w monitor (6) Abnormal urinalysis: Code(s): R82.90 - Unspecified abnormal findings in urine Status: Acute Assessment and Plan: on abx monitor urine culture (7) Multiple sclerosis: Onset Date: 1997 Code(s): G35 - Multiple sclerosis Status: Chronic Assessment and Plan: -continue home medications: Tecfidera -Patient is very lethargic -neurology consulted -chronic stage of multiple sclerosis (8) Paroxysmal atrial fibrillation: Code(s): I48.0 - Paroxysmal atrial fibrillation Status: Resolved Assessment and Plan: - EKG, initial: Sinus tachycardia, rate 118, possible left atrial enlargement, delayed precordial R/S transition, baseline artifact - not currently on any anti dysrhythmic or anticoagulation - telemetry monitoring, currently tachycardic in the 130s (9) Hypertension: Qualifiers: Hypertension type: primary hypertension Qualified Code(s): I10 - Essential (primary) hypertension Code(s): I10 - Essential (primary) hypertension Status: Resolved Assessment and Plan: - chronic, currently 129/92 - not currently on antihypertensives - monitor (10) DVT (deep venous thrombosis): Code(s): I82.409 - Acute embolism and thrombosis of unspecified deep veins of unspecified lower extremity Status: Acute Assessment and Plan: Patient has extensive DVT on her right lower extremity Patient is on heparin drip Will switch to oral anticoagulation (11) Sacral ulcer: Code(s): L98.429 - Non-pressure chronic ulcer of back with unspecified severity Status: Acute Assessment and Plan: Patient underwent a debridement with surgery on 10/25 Continue wound care Plan Diet: heart healthy GI Prophylaxis: not currently indicated DVT Prophylaxis: Lovenox SQ Code Status: Full code Subjective Date/time seen: 10/28/24 07:43 Interval history: Today patient mentation was significantly improved. Patient underwent MBS and improved compared to last time. Patient tolerated regular consistency oral feedings in upright position. Replenish potassium. Chronic multiple sclerosis stage. In regards to her neurological condition patient will continue to decline due to the chronic stage of n multiple sclerosis. Discussed with the family about hospice/palliative. Son reports that he will discuss with his father and brother Review of Systems Review of Systems: All systems reviewed & are unremarkable except as noted in HPI and below Exam Const: General: comfortable and no acute distress Other: , female, nontoxic appearance HENMT: Face/Nose/Sinus: Normal nares present Mouth: Yes moist mucous membranes Eyes: General: appearance normal, both eyes and all related structures Sclera: sclerae normal Pupils: Equal, round and reactive pupils present EOM: EOMs intact bilaterally Resp: Effort & Inspection: normal respiratory effort Auscultation: clear to auscultation bilaterally Cardio: Rate: regular rate Rhythm: regular rhythm Other: S1-S2 present without murmur, rub, ectopy GI: Other: Abdomen soft, nondistended, nontender. Normoactive bowel sounds in all quadrants. Skin: General skin exam: normal color and no rashes or lesions noted Wounds: no wounds Neuro: Cranial nerves: Yes Equal, round and reactive pupils present Other: Minimally interactive, alert and awake. Extrem: Other: Asymmetric swelling to right lower extremity, 1+ edema. Psych: Other: Flat affect. Objective Data Vital Signs Vital Signs: Vital Signs - 24 hr 10/27/24 08:00 10/27/24 10:30 10/27/24 12:00 Temperature Pulse Rate 94 97 Respiratory Rate Blood Pressure Pulse Oximetry Oxygen Delivery Room Air 10/27/24 14:00 10/27/24 16:00 10/27/24 20:00 Temperature 98.2 F Pulse Rate 72 92 Respiratory Rate 20 Blood Pressure 138/72 Pulse Oximetry 100 Oxygen Delivery Room Air 10/27/24 20:00 10/27/24 21:00 10/28/24 00:00 Temperature 98.8 F Pulse Rate 90 103 H 93 Respiratory Rate 16 Blood Pressure 140/73 Pulse Oximetry 96 Oxygen Delivery 10/28/24 04:00 10/28/24 05:40 Temperature 98.1 F Pulse Rate 90 98 Respiratory Rate 16 Blood Pressure 130/74 Pulse Oximetry 98 Oxygen Delivery Intake/Output Intake/Output: Intake & Output 10/25/24 10/26/24 10/27/24 10/28/24 23:59 23:59 23:59 23:59 Intake Total 3393.6 1560 1219.5 124 Output Total 1300 1200 600 Balance 2093.6 360 619.5 124 Meds/Results Medications: Active Medications Generic Name Dose Route Start Last Admin Trade Name Freq PRN Reason Stop Dose Admin Acetaminophen 500 mg 10/25/24 18:11 Acetaminophen 500 Mg Tablet PO Q6H PRN Pain Rated 1-3 Benzonatate 100 mg 10/23/24 15:49 Benzonatate 100 Mg Capsule PO TID PRN Cough Fentanyl Citrate 12.5 mcg 10/25/24 18:11 Fentanyl Citrate Inj (*Crx) 100 Mcg/2 Ml Vial IV PUSH Q2H PRN Breakthrough Pain Rated 4-6 or NPO Fentanyl Citrate 25 mcg 10/25/24 18:11 Fentanyl Citrate Inj (*Crx) 100 Mcg/2 Ml Vial IV PUSH Q2H PRN Breakthrough Pain Rated 7-10 or NPO Guaifenesin 600 mg 10/23/24 15:49 Guaifenesin 12 Hr 600 Mg Tabcr PO Q12HR PRN Congestion Heparin Sodium (Porcine) 4,000 units 10/24/24 10:06 Heparin Sodium 5,000 Units/Ml Vial IV PUSH PRN PRN aPTT less than 55 seconds Heparin Sodium (Porcine) 2,000 units 10/24/24 10:06 10/25/24 04:19 Heparin Sodium 5,000 Units/Ml Vial IV PUSH 2,000 units PRN PRN Administration aPTT 55 - 70 seconds Heparin Sodium/Dextrose 25,000 units in 250 mls @ 8 mls/hr 10/24/24 10:10 10/28/24 03:45 Heparin Sodium/D5w 100 Units/Ml IV CONT 800 units/hr .Q24H APRYL 8 mls/hr Titration Protocol 800 UNITS/HR Ibuprofen 800 mg in 200 mls @ 400 mls/hr 10/25/24 18:11 Caldolor 800 Mg/200 Ml IVPB Q6H PRN Breakthrough Pain Rated 1-3 or NPO Ibuprofen 600 mg 10/23/24 22:02 Ibuprofen 600 Mg Tablet PO TID PRN pain Levofloxacin 750 mg 10/28/24 09:00 Levofloxacin 750 Mg Tablet PO 11/02/24 08:59 DAILY [facility] Miscellaneous Information 1 each 10/24/24 00:01 10/26/24 10:12 Tecfidera Is Nonform; Can Pt Use From Home? XX Not Given CLARIFY APRYL Naloxone HCl 0.1 mg 10/25/24 18:11 Naloxone Hcl 0.4 Mg/Ml Vial IV PUSH Q2M PRN Opiate Reversal Non-Formulary Medication 240 mg 10/24/24 09:00 Dimethyl Fumarate [Tecfidera] PO 11/23/24 08:59 BID APRYL Oxycodone/Acetaminophen 0.5 tablet 10/25/24 18:11 Oxycodone/Acetaminophen (*Crx) 5-325 Mg Tablet PO Q4H PRN Pain Rated 4-6 Polyethylene Glycol 17 gm 10/27/24 10:00 10/27/24 11:20 Polyethylene Glycol 3350 17 Gm Powd.Pack PO 17 gm QAM APRYL Administration Promethazine HCl 12.5 mg 10/23/24 14:03 Promethazine Hcl 25 Mg/Ml Ampul IV PUSH Q6H PRN Nausea Valacyclovir HCl 1,000 mg 10/23/24 22:10 10/27/24 21:57 Valacyclovir Hcl 500 Mg Tablet PO 1,000 mg Q12HR APRYL Administration Radiology Results: ITS Impressions Chest X-Ray 10/23/24 13:30 Impression: 1: Mild interstitial edema. Venous Doppler Study 10/24/24 09:59 IMPRESSION: 1: Extensive deep venous thrombosis of the right lower extremity veins. Dr. [place] discussed with the patient's nurse, Mora, at 10/24/2024 10:[address] 10/24/24 10:16 Impression: Patchy left upper lobe pneumonia. Bibasilar atelectatic change. Modified Barium Swallow 10/24/24 15:50 IMPRESSION: Pharyngeal dysphagia with laryngeal penetration and trace aspiration Please correlate with speech pathologist findings and specific feeding recommendations. Brain MRI 10/25/24 16:48 IMPRESSION: 1. No acute intracranial process. 2. Extensive cerebral white matter T2 hyperintensity symmetric confluent t hroughout the bilateral periventricular white matter most likely sequela of chronic small vessel ischemic disease although superimposed multiple sclerosis cannot be excluded. Labs Labs: Laboratory Results - last 24 hr 10/27/24 10/27/24 10/27/24 04:34 13:56 18:34 WBC RBC Hgb Hct MCV MCH MCHC RDW Plt Count MPV APTT 83.6 H Sodium Potassium 3.7 Chloride Carbon Dioxide Anion Gap BUN Creatinine Estim Creat Clear Calc Estimated GFR Glucose Calcium Magnesium 1.4 L Total Bilirubin AST ALT Alkaline Phosphatase Total Protein Albumin 10/28/24 10/28/24 00:23 04:21 WBC 11.2 H RBC 3.13 L Hgb 8.5 L Hct 24.8 L MCV 79.2 L MCH 27.2 MCHC 34.3 RDW 16.6 H Plt Count 351 MPV 11.3 H APTT 139.3 H Sodium 141 Potassium 3.2 L Chloride 110 H Carbon Dioxide 25 Anion Gap 6 BUN 6 L Creatinine 0.59 L Estim Creat Clear Calc 67 Estimated GFR > 60 Glucose 99 Calcium 8.7 Magnesium Total Bilirubin 0.3 AST 27 ALT 10 Alkaline Phosphatase 49 Total Protein 6.1 L Albumin 2.4 L Quality VTE Prophylaxis VTE prophylaxis: pharmacologic ordered Hospitalist [facility] Advance Care Plan I have confirmed that the patient's Advanced Care Plan is present, code status is documented, or surrogate decision maker is listed in patient medical record.: Yes Medication Reconciliation I have utilized all available resources to obtain, update and review the patients current medications (includes all prescriptions, OTC, herbals, cannabis, and nutritional supplements).: Yes
--- NOTE | 2024-10-28 08:43 | P.CDI_ITS ---
CDI Query Clarification Request BMI: 22.0 Nutritional Diagnostic Statement: Please refer to the comprehensive nutrition assessment for further information. If you agree with diagnosis of Severe protein calorie malnutrition related to chronic loss of appetite, increased needs from chronic wounds as evidenced by intakes <75% needs >1 month; weight loss 9%/4 months, 17%/8 months. Please specify severity if known: * Mild * Moderate * Severe * Other/Unknown <Carla Gregg RN - Last Filed: 10/28/24 08:43> Clarified Diagnosis Clarified Diagnosis: Severe <Dino Kelly MD - Last Filed: 10/28/24 14:13>
[2024-10-28] MEDS: valACYclovir HCL 500 MG TABLET 1000 MG PO ×2 (10:03→20:20)
[2024-10-28] MEDS: POTASSIUM CHLORIDE 20 MEQ ER TABLET 40 MEQ PO (10:03)
[2024-10-28] MEDS: levoFLOXacin 750 MG TABLET PO (10:04)
[2024-10-28] MEDS: polyethylene glycoL 3350 17 GM POWD.PACK PO (10:04)
--- NOTE | 2024-10-28 13:40 | PCNFU ---
Nutrition Follow-Up Complete: Severe protein calorie malnutrition related to chronic loss of appetite, increased needs from chronic wounds as evidenced by intakes <75% needs >1 month; weight loss 9%/4 months, 17%/8 months Goal:Adequate PO intake to support wound healing Pt current nutrition is Minced and moist level 5, mildly thick liquids level 2. Nutrition recommendation: Add JANINA BID for wound healing, Ensure Enlive BID Last recorded weight is 56.4 kg. Bowel Motility: +BM 10/27 Labs Reviewed: Hgb:8.5, HCT:24.8, Alb:2.4, K:3.2, BUN:6, Cr:0.59 Meds Noted: miralax, heparin Skin: DTPI to heel, unstageable to sacrum Additional Notes: Pt continues on a minced and moist level 5 diet, mildly thick level 2 liquids. Intake 25-50% but pt reports she is eating well and has a good appetite. Encouraged po intake. Recommended JANINA BID for wounds, Ensure Enlive BID for supplement and pt agreeable. Monitoring diet orders, wounds, intakes, supplement tolerance, weights, labs, plan of care Follow up in 5 days
--- NOTE | 2024-10-28 14:22 | PCSTNOTE ---
Please refer to the Modified Barium Swallow (MBS) Evaluation in the EMR. The above pt, admitted with an MS exacerbation, was seen for a repeat MBS. Previous testing revealed aspiration of thin liquids. The pt is alert, able to converse & follow commands but yelled out in pain if she was moved even slightly. She was positioned upright and seated for a lateral view, but it is noted that her head tilts to the L. She was presented with 5 ml of thin liquids via a spoon, pudding consistency barium via a spoon, crumbled cracker coated with barium pudding via a spoon, small cracker pieces coated with barium pudding via a spoon, and uncontrolled trials of thin liquid via a cup and a straw. The oral stages were slightly slow but WFL; no leakage, residue, or pocketing occurred. During the pharyngeal stage, no laryngeal penetration or aspiration occurred but mild residual was exhibited in the L pyriform sinus which was felt to be due to her head tilting to the L posture. When she was repositioned more upright with her head in neutral, the contents were cleared with a dry swallow. Impressions & recommendations: functional swallow ability for a soft diet with thin liquids; it is recommended that she be positioned upright with her head propped to be in a neutral position. Level 6 soft and bite size diet with level [address] further ST at this time. Thank you for this referral.
--- NOTE | 2024-10-28 17:39 | PM.PNGS ---
Progress Note: A&P Assessment and Plan (1) Decubitus ulcer of sacral region, stage 4: Code(s): L89.154 - Pressure ulcer of sacral region, stage 4 Status: Acute Assessment and Plan: no more necrotic tissue, sacral bone palpable, minimal granulation tissue as yet. Continue silver gel dressing changes and try to avoid further pressure to the sacral area. Subjective Subjective Date/Time Seen: 10/28/24 17:39 Post Op day: 3 Patient reports: no new complaints, feels better and afebrile Exam Const: General: comfortable, awake and other ( much more alert and conversant today) Back/Spine/Pelvis: Sacrum: other ( see sacral wound clean with no areas of necrosis, no purulence or undermin) Other: sacral wound looks good, doubt we will need further debridement. Objective Data Vital Signs Vital Signs: Vital Signs - 24 hr 10/27/24 20:00 10/27/24 20:00 10/27/24 21:00 Temperature 37.1 C Pulse Rate 90 103 H Respiratory Rate 16 Blood Pressure 140/73 Pulse Oximetry 96 Oxygen Delivery Room Air 10/28/24 00:00 10/28/24 04:00 10/28/24 05:40 Temperature 36.7 C Pulse Rate 93 90 98 Respiratory Rate 16 Blood Pressure 130/74 Pulse Oximetry 98 Oxygen Delivery 10/28/24 08:00 10/28/24 08:00 10/28/24 12:00 Temperature Pulse Rate 89 106 H Respiratory Rate Blood Pressure Pulse Oximetry Oxygen Delivery Room Air 10/28/24 15:27 Temperature 36.5 C Pulse Rate 106 H Respiratory Rate 18 Blood Pressure 136/75 Pulse Oximetry 100 Oxygen Delivery Intake/Output Intake/Output: Intake & Output 10/25/24 10/26/24 10/27/24 10/28/24 23:59 23:59 23:59 23:59 Intake Total 3393.6 1560 1219.5 209.9 Output Total 1300 1200 600 Balance 2093.6 360 619.5 209.9 Meds/Results Medications: Active Medications Generic Name Dose Route Start Last Admin Trade Name Freq PRN Reason Stop Dose Admin Acetaminophen 500 mg 10/25/24 18:11 Acetaminophen 500 Mg Tablet PO Q6H PRN Pain Rated 1-3 Benzonatate 100 mg 10/23/24 15:49 Benzonatate 100 Mg Capsule PO TID PRN Cough Fentanyl Citrate 12.5 mcg 10/25/24 18:11 Fentanyl Citrate Inj (*Crx) 100 Mcg/2 Ml Vial IV PUSH Q2H PRN Breakthrough Pain Rated 4-6 or NPO Fentanyl Citrate 25 mcg 10/25/24 18:11 Fentanyl Citrate Inj (*Crx) 100 Mcg/2 Ml Vial IV PUSH Q2H PRN Breakthrough Pain Rated 7-10 or NPO Guaifenesin 600 mg 10/23/24 15:49 Guaifenesin 12 Hr 600 Mg Tabcr PO Q12HR PRN Congestion Ibuprofen 800 mg in 200 mls @ 400 mls/hr 10/25/24 18:11 Caldolor 800 Mg/200 Ml IVPB Q6H PRN Breakthrough Pain Rated 1-3 or NPO Ibuprofen 600 mg 10/23/24 22:02 Ibuprofen 600 Mg Tablet PO TID PRN pain Levofloxacin 750 mg 10/28/24 09:00 10/28/24 10:04 Levofloxacin 750 Mg Tablet PO 11/02/24 08:59 750 mg DAILY APRYL Administration Miscellaneous Information 1 each 10/24/24 00:01 10/26/24 10:12 Tecfidera Is Nonform; Can Pt Use From Home? XX Not Given CLARIFY APRYL Naloxone HCl 0.1 mg 10/25/24 18:11 Naloxone Hcl 0.4 Mg/Ml Vial IV PUSH Q2M PRN Opiate Reversal Non-Formulary Medication 240 mg 10/24/24 09:00 Dimethyl Fumarate [Tecfidera] PO 11/23/24 08:59 BID APRYL Oxycodone/Acetaminophen 0.5 tablet 10/25/24 18:11 Oxycodone/Acetaminophen (*Crx) 5-325 Mg Tablet PO Q4H PRN Pain Rated 4-6 Polyethylene Glycol 17 gm 10/27/24 10:00 10/28/24 10:04 Polyethylene Glycol 3350 17 Gm Powd.Pack PO 17 gm QAM APRYL Administration Promethazine HCl 12.5 mg 10/23/24 14:03 Promethazine Hcl 25 Mg/Ml Ampul IV PUSH Q6H PRN Nausea Valacyclovir HCl 1,000 mg 10/23/24 22:10 10/28/24 10:03 Valacyclovir Hcl 500 Mg Tablet PO 1,000 mg Q12HR APRYL Administration Radiology Results: ITS Impressions Chest X-Ray 10/23/24 13:30 Impression: 1: Mild interstitial edema. Venous Doppler Study 10/24/24 09:59 IMPRESSION: 1: Extensive deep venous thrombosis of the right lower extremity veins. Dr. [place] discussed with the patient's nurse, Mora, at 10/24/2024 10:[address] 10/24/24 10:16 Impression: Patchy left upper lobe pneumonia. Bibasilar atelectatic change. Brain MRI 10/25/24 16:48 IMPRESSION: 1. No acute intracranial process. 2. Extensive cerebral white matter T2 hyperintensity symmetric confluent throughout the bilateral periventricular white matter most likely sequela of chronic small vessel ischemic disease although superimposed multiple sclerosis cannot be excluded. Modified Barium Swallow 10/28/24 13:59 IMPRESSION: Patient tolerated regular consistency oral feedings in the upright position. Please correlate with speech pathologist findings and specific feeding recommendations. Labs Labs: Laboratory Results - last 24 hr 10/27/24 10/28/24 10/28/24 18:34 00:23 04:21 WBC 11.2 H RBC 3.13 L Hgb 8.5 L Hct 24.8 L MCV 79.2 L MCH 27.2 MCHC 34.3 RDW 16.6 H Plt Count 351 MPV 11.3 H APTT 83.6 H 139.3 H Sodium 141 Potassium 3.2 L Chloride 110 H Carbon Dioxide 25 Anion Gap 6 BUN 6 L Creatinine 0.59 L Estim Creat Clear Calc 67 Estimated GFR > 60 Glucose 99 Calcium 8.7 Total Bilirubin 0.3 AST 27 ALT 10 Alkaline Phosphatase 49 Total Protein 6.1 L Albumin 2.4 L 10/28/24 08:42 WBC RBC Hgb Hct MCV MCH MCHC RDW Plt Count MPV APTT 71.0 H Sodium Potassium Chloride Carbon Dioxide Anion Gap BUN Creatinine Estim Creat Clear Calc Estimated GFR Glucose Calcium Total Bilirubin AST ALT Alkaline Phosphatase Total Protein Albumin
[2024-10-29] VITALS (7 sets, daily range): BP systolic 114–143; BP diastolic 73–83; PULSE 80–134; RESP 12–20; TEMP 36.8; O2SAT 96–98
[2024-10-29 05:22] LABS: Hematocrit 27.7 % (37.0-47.0); Hemoglobin 9.5 g/dL (12.0-15.0); Mean Corpuscular HGB Conc 34.3 g/dl (32-36); Mean Corpuscular Hemoglobin 27.2 pg (26-34); Mean Corpuscular Volume 79.4 fl (80-100); Mean Platelet Volume 10.7 fl (7.4-10.4); Platelet Count Result 412 k/mm3 (150-375); Red Blood Count 3.49 M/mm3 (4.2-5.4); Red Cell Distribution Width 16.7 % (11.5-14.5)
[2024-10-29 05:38] LABS: Alanine Aminotransferase 11 U/L (6-35); Albumin Level 2.8 g/dL (3.5-5.1); Alkaline Phosphatase 59 U/L (38-126); Anion Gap 11 mmol/L (4-12); Aspartate Amino Transferase 24 U/L (14-36); Bilirubin,Total 0.4 mg/dL (0.2-1.3); Blood Urea Nitrogen 6 mg/dL (7-17); Calcium 9.2 mg/dL (8.4-10.2); Carbon Dioxide 20 mmol/L (22-30); Chloride 108 mmol/L (98-107); Estimated CRCL calculation 68 ml/min; Estimated Glomerular Filt Rate > 60; Glucose 92 mg/dL (65-110); Potassium 3.2 mmol/L (3.4-5.0); Sodium 139 mmol/L (137-145); Total Protein 6.9 g/dL (6.3-8.2)
[2024-10-29] MEDS: polyethylene glycoL 3350 17 GM POWD.PACK PO (09:16)
[2024-10-29] MEDS: APIXABAN 5 MG TABLET 10 MG PO (09:16)
[2024-10-29] MEDS: valACYclovir HCL 500 MG TABLET 1000 MG PO (09:17)
[2024-10-29] MEDS: levoFLOXacin 750 MG TABLET PO (09:17)
[2024-10-29] MEDS: POTASSIUM CHLORIDE 20 MEQ PACKET (FOR LIQUID) 40 MEQ PO (09:23)
[2024-10-29 09:24] LABS: Magnesium 1.4 mg/dL (1.6-2.3)
--- NOTE | 2024-10-29 11:07 | PM.DS ---
DS: Admitting Diagnosis Discharge Date 10/29/2024 Admitting Diagnosis Generalized Weakness DS: Discharge Diagnosis Discharge Diagnosis (1) Sepsis: Qualifiers: Sepsis acute organ dysfunction status: without acute organ dysfunction Sepsis type: sepsis due to unspecified organism Qualified Code(s): A41.9 - Sepsis, unspecified organism Code(s): A41.9 - Sepsis, unspecified organism Status: Acute Assessment and Plan: resolving, vital signs within normal limits CT chest showed ANAYA pneumonia Discontinue Rocephin, Flagyl and Azithromycin Started levofloxacin p.o. q.d. for 5 days Negative blood cultures (2) Aspiration pneumonia: Qualifiers: Aspiration pneumonia type: unspecified Laterality: unspecified laterality Lung location: unspecified part of lung Qualified Code(s): J69.0 - Pneumonitis due to inhalation of food and vomit Code(s): J69.0 - Pneumonitis due to inhalation of food and vomit Status: Acute Assessment and Plan: Continue above care Speech therapy following (3) Dysphagia: Qualifiers: Dysphagia type: unspecified Qualified Code(s): R13.10 - Dysphagia, unspecified Code(s): R13.10 - Dysphagia, unspecified Status: Acute Assessment and Plan: - inability to swallow pills, poor p.o. intake witnessed by son -10/28: Patient underwent MBS and performed better than last time. Patient tolerated regular consistently oral feedings in the upright position -Patient previously underwent MBS on 10/24/2024 which showed pharyngeal dysphagia with laryngeal penetration and trace aspiration. - speech evaluation (4) ESTEFANÍA (acute kidney injury): Code(s): N17.9 - Acute kidney failure, unspecified Status: Acute Assessment and Plan: resolved, likely from dehydration (5) Hypernatremia: Code(s): E87.0 - Hyperosmolality and hypernatremia Status: Acute Assessment and Plan: - Na 150 on D5w monitor (6) Abnormal urinalysis: Code(s): R82.90 - Unspecified abnormal findings in urine Status: Acute Assessment and Plan: on abx monitor urine culture (7) Multiple sclerosis: Onset Date: 1997 Code(s): G35 - Multiple sclerosis Status: Chronic Assessment and Plan: -continue home medications: Tecfidera -Patient is very lethargic -neurology consulted -chronic stage of multiple sclerosis (8) Paroxysmal atrial fibrillation: Code(s): I48.0 - Paroxysmal atrial fibrillation Status: Resolved Assessment and Plan: - EKG, initial: Sinus tachycardia, rate 118, possible left atrial enlargement, delayed precordial R/S transition, baseline artifact - not currently on any anti dysrhythmic or anticoagulation - telemetry monitoring, currently tachycardic in the 130s (9) Hypertension: Qualifiers: Hypertension type: primary hypertension Qualified Code(s): I10 - Essential (primary) hypertension Code(s): I10 - Essential (primary) hypertension Status: Resolved Assessment and Plan: - chronic, currently 129/92 - not currently on antihypertensives - monitor (10) DVT (deep venous thrombosis): Code(s): I82.409 - Acute embolism and thrombosis of unspecified deep veins of unspecified lower extremity Status: Acute Assessment and Plan: Patient has extensive DVT on her right lower extremity Patient is on heparin drip Will switch to oral anticoagulation (11) Sacral ulcer: Code(s): L98.429 - Non-pressure chronic ulcer of back with unspecified severity Status: Acute Assessment and Plan: Patient underwent a debridement with surgery on 10/25 Continue wound care DS: Summary Hospital Course Hospital Course: 64 y/o F with PMH of multiple sclerosis, paroxysmal AFib, scoliosis, and hypertension presents here with generalized weakness. The patient presents here from home on 10/23 for further evaluation of generalized weakness and possible aspiration. She currently resides at home with her son as her primary caregiver. She reports she has been experiencing worsening generalized weakness, increased stiffness, generalized pain, and poor P.O. intake for the past 3 days (since Monday). Son reported to ED staff that she has been coughing up her oral medications and has developed gurgling respirations which made him concerned for aspiration. Recent constipation. Has not reported shortness of breath to her son, however he notes that she has seemed more labored. The patient denies fever, chills, or diarrhea. Initial VS at presentation: 97.6? F, HR 116, RR 23, 129/92, and 97% on RA. ED workup showed: WBC 13.3, no anemia, sodium 150, creatinine 1.29 and GFR 41 (previously 0.78 and GFR >60 on 07/02/2024), calcium 10.5, UA equivocal for infection as there are moderate epithelial cells. CXR showed mild interstitial edema. During hospitalization patient was treated for MS,Sacral ulcer ,Aspiration PNA, and extensive DVT. In regards to MS, patient is in chronic stage of MS. Evaluated by neurology who agrees with chronic stage of MS. Patient is bedbound and evidence of aspiration . Patient underwent MBS 2 times. -10/28: Patient underwent MBS and performed better than last time. Patient tolerated regular consistently oral feedings in the upright position -10/24/2024 which showed pharyngeal dysphagia with laryngeal penetration and trace aspiration. Brain MRI:1. No acute intracranial process. 2. Extensive cerebral white matter T2 hyperintensity symmetric confluent throughout the bilateral periventricular white matter most likely sequela of chronic small vessel ischemic disease although superimposed multiple sclerosis cannot be excluded. In regards to aspiration PNA: Patient will complete Levofloxacin until 11/05/2024 In regards to sacral ulcer underwent Excisional debridement infected sacral decubitus of skin, subcutaneous, and muscle-8.5 x 5.5 x 2 cm or 93.5 cubic cm on 10/25/2024. Wound will managed by home health. Discussed with care coordination about wound management. In regards to extensive right DVT,initially was on heparin and now started her Eliquis 10mg PO BID x 7 days and then Eliquis 5mg PO BID and follow with PCP for further management Status at Discharge Cognitive/behavioral status at discharge: Stable Time Spent with Patient Time attestation: Total time spent providing and/or coordinating discharge services:45 minutes Exam Const: General: comfortable and no acute distress Other: , female, nontoxic appearance HENMT: Face/Nose/Sinus: Normal nares present Mouth: Yes moist mucous membranes Eyes: General: appearance normal, both eyes and all related structures Sclera: sclerae normal Pupils: Equal, round and reactive pupils present EOM: EOMs intact bilaterally Resp: Effort & Inspection: normal respiratory effort Auscultation: clear to auscultation bilaterally Cardio: Rate: regular rate Rhythm: regular rhythm Other: S1-S2 present without murmur, rub, ectopy GI: Other: Abdomen soft, nondistended, nontender. Normoactive bowel sounds in all quadrants. Skin: General skin exam: normal color and no rashes or lesions noted Wounds: no wounds Neuro: Cranial nerves: Yes Equal, round and reactive pupils present Other: Minimally interactive, alert and awake. Extrem: Other: Asymmetric swelling to right lower extremity, 1+ edema. Psych: Other: Flat affect. DS: Data Data Completed and Pending Labs on day of discharge: Labs from last 24 hours 10/29/24 10/29/24 04:34 04:30 WBC 14.0 H RBC 3.49 L Hgb 9.5 L Hct 27.7 L MCV 79.4 L MCH 27.2 MCHC 34.3 RDW 16.7 H Plt Count 412 H MPV 10.7 H Sodium 139 Potassium 3.2 L Chloride 108 H Carbon Dioxide 20 L Anion Gap 11 BUN 6 L Creatinine 0.58 L Estim Creat Clear Calc 68 Estimated GFR > 60 Glucose 92 Calcium 9.2 Magnesium 1.4 L Total Bilirubin 0.4 AST 24 ALT 11 Alkaline Phosphatase 59 Total Protein 6.9 Albumin 2.8 L Preliminary micro results at discharge 10/25/24 16:48 Anaerobic Culture - Preliminary Decubitus Ulcer Bacteroides fragilis group Imaging Radiologist's impression: ITS Impressions Chest X-Ray 10/23/24 13:30 Impression: 1: Mild interstitial edema. Venous Doppler Study 10/24/24 09:59 IMPRESSION: 1: Extensive deep venous thrombosis of the right lower extremity veins. Dr. [place] discussed with the patient's nurse, Mora, at 10/24/2024 10:[address] 10/24/24 10:16 Impression: Patchy left upper lobe pneumonia. Bibasilar atelectatic change. Modified Barium Swallow 10/24/24 15:50 IMPRESSION: Pharyngeal dysphagia with laryngeal penetration and trace aspiration Please correlate with speech pathologist findings and specific feeding recommendations. Brain MRI 10/25/24 16:48 IMPRESSION: 1. No acute intracranial process. 2. Extensive cerebral white matter T2 hyperintensity symmetric confluent throughout the bilateral periventricular white matter most likely sequela of chronic small vessel ischemic disease although superimposed multiple sclerosis cannot be excluded. Modified Barium Swallow 10/28/24 13:59 IMPRESSION: Patient tolerated regular consistency oral feedings in the upright position. Please correlate with speech pathologist findings and specific feeding recommendations. Discharge Plan Discharge Attending physician on discharge: Dino Kelly Consulting providers: Janet Melissa; Liam Bennett Discharging Clinician: Dino Kelly Anticipated Discharge Date/Time: 10/29/24 11:23 Patient Disposition: Home with Home Health Service Activity: as tolerated Diet: other - see discharge instructions Discharge Instructions: Per Care Coordination: [facility] will resume services at discharge. [facility] will follow for home health care social worker and PT/OT eval and treat. [facility] can be contacted at [phone]. Nursing please fax discharge paperwork to [phone]. Diet:Minced and moist Level 5 diet. Patient started Eliquis 10mg PO BID x7 days and the Eliquis 5 mg PO BID. Please follow up with PCP for further management of right leg DVT. Please follow up with Neurology for MS Wound care to Sacral ulcer: Daily apply silver gel to wound, lightly fill with dry gauze, cover with ABD pad and secure with medipore tape. Discharged with Stone catheter and please follow-up with Urology in a week or 2 for further management. Patient started on Eliquis and Monitor for any bleeding Ordered CBC and follow up the results with PCP Check blood pressure 1 to 2 times a day. Record and bring into your doctor for review. Call your doctor if your blood pressure is greater than 180/110 or less than 90/45. Take precautions to avoid falls. Contact your doctor or call 911 and come to the Emergency Room if you have any type of trauma, lightheadedness with standing or other worrisome symptoms. Avoid NSAIDs (ibuprofen, naproxen, Aleve). Tylenol is safe to take. Follow-up with your primary care provider in 1-2 weeks. Please call for appointment. Follow-up with Cardiology in 2-4 weeks. Please call for an appointment. Thank you for using [facility] for your health care needs. Patient Instructions: Antibiotic Form, Stone Catheter Placement and Care (DC), Urinary Leg Bag (GEN) Patient Language: Tunisian Stand Alone Forms: General Discharge Information Follow-up/Referrals: Sohail Thompson MD [Physician] - Liam Bennett MD [Physician] - Janet Melissa MD [Physician] - Trish Luciano APRN [Primary Care Provider] - Discharge Medications: New Eliquis 5 mg Tablet 5 mg PO Q12HR Qty: 60 0RF Rx Instructions: please start taking Eliquis 5mg PO BID from 11/05 Eliquis 5 mg Tablet 10 mg PO Q12HR Qty: 28 0RF Rx Instructions: Please take Eliquis 10 mg PO BID x 7days until 11/04 levofloxacin 750 mg tablet 750 mg PO DAILY Qty: 7 0RF Continued valacyclovir [Valtrex] 500 mg Tablet 1,000 mg PO Q12HR Qty: 17 0RF polyethylene glycol 3350 [ClearLax] 17 gram/dose powder 4 g PO DAILY dimethyl fumarate [Tecfidera] 240 mg capsule,delayed release(DR/EC) 240 mg PO BID Qty: 180 0RF Discontinued ibuprofen 600 mg tablet 600 mg PO TID PRN (Reason: pain) Qty: 90 0RF Other Ambulatory Orders: Complete Blood Count no Diff (Routine) Timeframe: 1 Month Location: Determined by Patient Ordered By: Dino Kelly Date of admission: 10/24/24 09:45 Primary Care Provider: Trish Luciano Admitting Provider: Yazmin Mojica Attending physician on admission: Yazmin Mojica Condition: Stable
--- NOTE | 2024-10-29 15:47 | P.PNGS_ITS ---
Progress Note: A&P Assessment and Plan (1) Decubitus ulcer of sacral region, stage 4: Code(s): L89.154 - Pressure ulcer of sacral region, stage 4 Status: Acute Assessment and Plan: No more necrotic tissue, purulence, or fluctuancee noted. Sacral bone palpable, minimal granulation tissue as yet. Yellow slough present to wound edges. WBC 14.0. Continue silver gel dressing changes and try to avoid further pressure to the sacral area. Subjective Subjective Date/Time Seen: 10/29/24 15:47 Interval history: Patient reports no new complaints. Afebrile overnight. WBC 14, up from 11.2. Nurse changed dressing earlier today. Exam Back/Spine/Pelvis: Sacrum: other ( see sacral wound clean with no areas of necrosis, no purulence or undermin) Other: sacral wound appears to be healing well. Further debridement unlikely. Skin: General skin exam: normal color Other: 6x8 cm unstageable sacral decubitus ulce r debrided on 10/25. No purulent drainage or necrotic tissue present. Wound fairly unchanged from yesterday. More yellow slough present. Objective Data Vital Signs Vital Signs: Vital Signs - 24 hr 10/28/24 16:00 10/28/24 19:58 10/28/24 20:00 Temperature 98.8 F Pulse Rate 109 H 82 Respiratory Rate 20 Blood Pressure 134/85 Pulse Oximetry 92 Oxygen Delivery Room Air 10/28/24 20:00 10/29/24 00:00 10/29/24 04:00 Temperature Pulse Rate 112 H 134 H 117 H Respiratory Rate Blood Pressure Pulse Oximetry Oxygen Delivery 10/29/24 04:52 10/29/24 08:00 10/29/24 08:00 Temperature 98.3 F Pulse Rate 110 H 114 H Respiratory Rate 20 Blood Pressure 143/83 H Pulse Oximetry 96 Oxygen Delivery Room Air 10/29/24 12:00 Temperature Pulse Rate 132 H Respiratory Rate Blood Pressure Pulse Oximetry Oxygen Delivery Intake/Output Intake/Output: Intake & Output 10/26/24 10/27/24 10/28/24 10/29/24 23:59 23:59 23:59 23:59 Intake Total 1560 1219.5 209.9 100 Output Total 1200 600 175 600 Balance 360 619.5 34.9 -500 Meds/Results Medications: Active Medications Generic Name Dose Route Start Last Admin Trade Name Freq PRN Reason Stop Dose Admin Acetaminophen 500 mg 10/25/24 18:11 Acetaminophen 500 Mg Tablet PO Q6H PRN Pain Rated 1-3 Apixaban 10 mg 10/29/24 09:00 10/29/24 09:16 Apixaban 5 Mg Tablet PO 11/05/24 08:59 10 mg Q12HR APRYL Administration Apixaban 5 mg 11/05/24 09:00 Apixaban 5 Mg Tablet PO Q12HR APRYL Benzonatate 100 mg 10/23/24 15:49 Benzonatate 100 Mg Capsule PO TID PRN Cough Fentanyl Citrate 12.5 mcg 10/25/24 18:11 Fentanyl Citrate Inj (*Crx) 100 Mcg/2 Ml Vial IV PUSH Q2H PRN Breakthrough Pain Rated 4-6 or NPO Fentanyl Citrate 25 mcg 10/25/24 18:11 Fentanyl Citrate Inj (*Crx) 100 Mcg/2 Ml Vial IV PUSH Q2H PRN Breakthrough Pain Rated 7-10 or NPO Guaifenesin 600 mg 10/23/24 15:49 Guaifenesin 12 Hr 600 Mg Tabcr PO Q12HR PRN Congestion Ibuprofen 800 mg in 200 mls @ 400 mls/hr 10/25/24 18:11 Caldolor 800 Mg/200 Ml IVPB Q6H PRN Breakthrough Pain Rated 1-3 or NPO Ibuprofen 600 mg 10/23/24 22:02 Ibuprofen 600 Mg Tablet PO TID PRN pain Levofloxacin 750 mg 10/28/24 09:00 10/29/24 09:17 Levofloxacin 750 Mg Tablet PO 11/02/24 08:59 750 mg DAILY APRYL Administration Miscellaneous Information 1 each 10/24/24 00:01 10/26/24 10:12 Tecfidera Is Nonform; Can Pt Use From Home? XX Not Given [facility] Naloxone HCl 0.1 mg 10/25/24 18:11 Naloxone Hcl 0.4 Mg/Ml Vial IV PUSH Q2M PRN Opiate Reversal Non-Formulary Medication 240 mg 10/24/24 09:00 Dimethyl Fumarate [Tecfidera] PO 11/23/24 08:59 BID [facility] Oxycodone/Acetaminophen 0.5 tablet 10/25/24 18:11 Oxycodone/Acetaminophen (*Crx) 5-325 Mg Tablet PO Q4H PRN Pain Rated 4-6 Polyethylene Glycol 17 gm 10/27/24 10:00 10/29/24 09:16 Polyethylene Glycol 3350 17 Gm Powd.Pack PO 17 gm QAM APRYL Administration Promethazine HCl 12.5 mg 10/23/24 14:03 Promethazine Hcl 25 Mg/Ml Ampul IV PUSH Q6H PRN Nausea Valacyclovir HCl 1,000 mg 10/23/24 22:10 10/29/24 09:17 Valacyclovir Hcl 500 Mg Tablet PO 1,000 mg Q12HR APRYL Administration Radiology Results: ITS Impressions Chest X-Ray 10/23/24 13:30 Impression: 1: Mild interstitial edema. Venous Doppler Study 10/24/24 09:59 IMPRESSION: 1: Extensive deep venous thrombosis of the right lower extremity veins. Dr. [place] discussed with the patient's nurse, Mora, at 10/24/2024 10:[address] 10/24/24 10:16 Impression: Patchy left upper lobe pneumonia. Bibasilar atelectatic change. Brain MRI 10/25/24 16:48 IMPRESSION: 1. No acute intracranial process. 2. Extensive cerebral white matter T2 hyperintensity symmetric confluent throughout the bilateral periventricular white matter most likely sequela of chronic small vessel ischemic disease although superimposed multiple sclerosis cannot be excluded. Modified Barium Swallow 10/28/24 13:59 IMPRESSION: Patient tolerated regular consistency oral feedings in the upright position. Please correlate with speech pathologist findings and specific feeding recommendations. Labs Labs: Laboratory Results - last 24 hr 10/29/24 10/29/24 04:30 04:34 WBC 14.0 H RBC 3.49 L Hgb 9.5 L Hct 27.7 L MCV 79.4 L MCH 27.2 MCHC 34.3 RDW 16.7 H Plt Count 412 H MPV 10.7 H Sodium 139 Potassium 3.2 L Chloride 108 H Carbon Dioxide 20 L Anion Gap 11 BUN 6 L Creatinine 0.58 L Estim Creat Clear Calc 68 Estimated GFR > 60 Glucose 92 Calcium 9.2 Magnesium 1.4 L Total Bilirubin 0.4 AST 24 ALT 11 Alkaline Phosphatase 59 Total Protein 6.9 Albumin 2.8 L
== END 2024-10-29 18:00 | disposition home health service (06) | DRG 853 ==
LOC: ANHED 12:31 → ANHIMU 14:52 → ANH2MED 10-25 23:17
PROVIDERS: Anesthesiology; Physician Assistant; Student in an Organized Health Care Education/Training Program; Surgery; Admitting Provider Internal Medicine; Emergency Provider Emergency Medicine; PCP Nurse Practitioner Family; Visit Provider General Practice
PROC: 0KBP0ZZ Excision of Left Hip Muscle, Open Approach (ICD-10-PCS; principal; 2024-10-25 15:30)
DX: A41.9 Sepsis, unspecified organism (principal); E43 Unspecified severe protein-calorie malnutrition; J18.9 Pneumonia, unspecified organism; L89.154 Pressure ulcer of sacral region, stage 4; J69.0 Pneumonitis due to inhalation of food and vomit; N17.9 Acute kidney failure, unspecified; E87.0 Hyperosmolality and hypernatremia; I82.411 Acute embolism and thrombosis of right femoral vein; B96.6 Bacteroides fragilis [B. fragilis] as the cause of diseases classified elsewhere; G35 Multiple sclerosis; I10 Essential (primary) hypertension; I48.0 Paroxysmal atrial fibrillation; M41.9 Scoliosis, unspecified; R13.10 Dysphagia, unspecified; R82.90 Unspecified abnormal findings in urine; Z79.01 Long term (current) use of anticoagulants; Z74.01 Bed confinement status; Z68.22 Body mass index [BMI] 22.0-22.9, adult
CPT/HCPCS: 36415; 70553; 71045; 71250; 80048; 80053; 81001; 82728; 82948; 83540; 83550; 83605; 83735; 83880; 84132; 84295; 85025; 85027; 85610; 85730; 87040; 87070; 87075; 87205; 92526; 92610; 92611; 93005; 93306; 93971; 94640; 96361; 96365; 96367; 96372; 96375; 99285; A9270; A9579; G0378; J0456; J0696; J1644; J1650; J1836; J2704; J3010; J3475; J3480; J7030; J7040; J7070; J7120

== ENCOUNTER 2024-11-12 17:56 | Inpatient (IN) | payer MEDICARE, MEDICAID, SELFPAY ==
--- NOTE | ~2024-11-12 | CT_ITS ---
CT brain wo con Ordering provider: Eitan Hubbard MD History: 64 years Female with . MS, AMS . Comparison: June 29, 2024 Technique: CT of the head without contrast. Radiation reduction technique utilized. The dose-length p roduct was 756.67 mGy-cm. FINDINGS: BRAIN PARENCHYMA AND CSF SPACES: Moderate leukoaraiosis and diffuse cortical atrophy. Moderate athero matous disease. Old lacunar infarct in the right cerebellar hemisphere. No midline shift, mass effect or hemorrhage. The brain parenchyma and CSF spaces are otherwise normal. VISUALIZED PARANASAL SINUSES: Well aerated. MASTOIDS: Well aerated. BONES: The bones appear intact. SOFT TISSUES: Visualized nasopharynx is normal. Superficial soft tissues are normal. IMPRESSION: No acute intracranial findings. Reviewed, dictated and finalized at location A.
--- NOTE | ~2024-11-12 | XR_ITS ---
EXAMINATION: XR fl Dobhoff insert/rad w img DATE: 11/18/2024 17:55 INDICATION: Inability to swallow TECHNIQUE: A Dobbhoff type feeding tube was advanced into the duodenum utilizing intermittent fluoroscopy. Final image demonstrates the feeding tube in position with the weighted tip at the expected location of th e ligament of Treitz. 5 mm of Omnipaque 240 water-soluble contrast was injected through the tube to a id in delineation of the DAP at the gastric outlet. The wire was removed and the tube was flushed wit h 10 mL sterile saline and fixed to the nares with adhesive tape. A single fluoroscopic image was rec orded. The amount of fluoroscopy time used during this procedure was 2.5 minutes. Total DAP was 7.383 Gycm^2. There were no immediate complications. FINDINGS/IMPRESSION: Successful fluoroscopy-guided Dobbhoff feeding tube placement with distal tip at the duodenal bulb. Reviewed, dictated and finalized at location A.
--- NOTE | ~2024-11-12 | CT_ITS ---
CT abdomen pelvis w con Ordering provider: Eitan Hubbard MD History: 64 years Female with . sacral wound s/p debridement . Comparison: June 29, 2024 Technique: CT abdomen and pelvis with IV and without oral contrast. Automated exposure control and it erative reconstruction technique were employed. The dose-length product was 249.73 mGy-cm. 100 mL Omn ipaque 350 was given IV. Findings: VISUALIZED LOWER CHEST: Minimal atelectatic changes in the middle lobe. Underlying emphysematous daniels ges. UPPER ABDOMINAL ORGANS: Liver: Normal. Gallbladder: Distended with no stones. Spleen: Normal. Stomach/duodenum: Normal. Pancreas: Normal. Adrenals: Normal. Kidneys: Small cyst in the right kidney upper pole. PELVIC ORGANS: The bladder is underfilled with air seen in the bladder. Hyperdensity is seen on the l eft side suggestive of a stone measuring 8 x 2 mm.. Stone's catheter is also seen in the bladder. BOWEL AND MESENTERY: Colon: No evidence of diverticulitis. Residual contrast is seen in the colon. Normal appendix. Small Bowel: Normal. No obstruction. Peritoneum/mesentery: No free air or free fluid. No mesenteric lymphadenopathy. RETROPERITONEUM: Mild atheromatous disease of the abdominal aorta. No retroperitoneal lymphadenopat hy. MUSCULOSKELETAL: Superficial soft tissues: Wound is seen in the area of the sacrum with no definite collection. Surrou nding fat stranding is seen. Otherwise, The superficial soft tissues are normal. Bones: Age appropriate degenerative changes of the spine. Levoscoliosis. Bilateral severe hip osteoar thritic changes. IMPRESSION: 1. Wound is seen in the area of the sacrum with no definite collection. Surrounding fat stranding is seen. 2. No evidence of appendicitis, diverticulitis or intestinal obstruction. Reviewed, dictated and finalized at location A. IMPRESSION: 1. Wound is seen in the area of the sacrum with no definite collection. Surrou nding fat stranding is seen. 2. No evidence of appendicitis, diverticulitis or intestinal obstruction.
--- NOTE | ~2024-11-12 | XR_ITS ---
EXAMINATION: XR fl Dobhoff insert/rad w img DATE: 11/19/2024 17:20 INDICATION: Patient pulled the tube out. Patient unable to swallow and needs replacement. TECHNIQUE: A Dobbhoff type feeding tube was advanced into the duodenum utilizing intermittent fluoroscopy. 10 mm Omnipaque 240 was injected through the tube to confirm position within the duodenum. The wire was re moved, the tube flushed with 20 mL of water and fixed to the nares with adhesive tape. A single fluor oscopic image was recorded. The amount of fluoroscopy time used during this procedure was 3.0 minutes . There were no immediate complications. FINDINGS/IMPRESSION: Successful fluoroscopy-guided Dobbhoff feeding tube placement with distal tip in the third portion of the duodenum. Reviewed, dictated and finalized at location A.
[2024-11-12 18:07] VITALS: BP 133/82; PULSE 96; RESP 13; TEMP 36.7; O2SAT 99
--- NOTE | 2024-11-12 18:17 | ECG_ITS ---
Test Date: 2024-11-12 20:06:29 Measurements Intervals [place] Rate: 102 P: 67 CT: 129 QRS: -45 QRSD: 79 T: 11 QT: 320 QTc: 419 Interpretive Statements SINUS TACHYCARDIA LEFT AXIS DEVIATION [QRS AXIS < -30] POSSIBLE RIGHT VENTRICULAR CONDUCTION DELAY [RSR (QR) IN V1/V2] POOR R-WAVE PROGRESSION ABNORMAL ECG Compared to ECG 10/23/2024 11:39:22 NO DIFFERENCE Electronically Signed On 11-13-2024 12:41:41 CDT by Marquise Thompson M.D.
--- OUTSIDE RECORDS SUMMARY | 2024-11-12 18:18 | XMS_ITS | Clinical Summary ---
Author Organization Unknown Care Team Providers Care Aluminum Polisher Name Role Phone FAITH AJMELIDA VENTURA Unavailable U oswaldo TOMLINSON RN, ANTONIETA Unavailable Unavailabl e MARIE PT, MARGARET Unavailable Unavailable LUPCHO BRICKLAYER APPRENTICE/MALAVE, JEANNE Unavailable Unavaila ble WENDY KUMARN, BRADLEY Unavailable Unavailable GLENN STITCH BONDING MACHINE TENDER HELPER, SCOTT Unavailable Unavailabl e TASHA OT, GABE Unavailable Unavailable Payers Payer Name Policy Type Policy Number Effective Date Expira tion Date MEDICARE.[place] [id number] Problems Condition Name Condition Details Condition Category [...] to adverse reactions Active 10-04 11:35: 36 Medications Ordered Medication Name Filled Medication Name Start Date Stop Date Current Medication? Ordering Clinician Indication Dosage Frequency Signature (SIG) Comments Components Cranberry Concentrate 500 mg capsule 2023-05 00:00: 00 Yes [id number] URINARY HEALTH 1 capsule DAILY 1 capsule DAILY (route: oral) Med Classific ation: Alternati ve Therapy dimethyl fumarate 240 mg capsule,del ayed release 2023-05 00:00: 00 Yes [id number] MULTIPLE SCLOROSIS 1 capsule 2 TIMES DAILY 1 capsule 2 TIMES DAILY (route: oral) Med Classific ation: Multiple Sclerosis Agents lisinopril 5 mg tablet 12-19 00:00: 00 10-17 23:59 :00 No [id number] BLOOD PRESSURE 1 tablet DAILY 1 tablet DAILY (route: oral) Med Classific ation: Cardiovas cular Therapy Agents valacyclovi r 500 mg tablet 2023-05 00:00: 00 Yes [id number] PREVENT VIRAL INFECTION 2 tablet EVERY 12 HOURS 2 tablet EVERY 12 HOURS (route: oral) Med Classific ation: Anti-Infe ctive Agents Advil 200 mg tablet 10-13 00:00: 00 Yes [id number] PAIN 200 mg DIRECTED 200 mg DIRECTED (route: oral) Med Classific ation: Analgesic , Anti-infl ammatory or Antipyret ic Miralax 17 gram/dose oral powder 10-14 00:00: 00 Yes [id number] CONSTIPATIO N 17 gram DAILY 17 gram DAILY (route: oral) Med Classific ation: Gastroint estinal Therapy Agents Immunizations Ordered Immunization Name Filled Immunization Name Date Status Comments Refusal Reason DOSE #2, COVID-19 VACCINE 2020-06-24 00:00:00 Vital Signs Vital Name Observation Time Observation Value Commen ts Temperature 2024-11-12 11:20:00.000 98.1 [degF] Temperature 2024-11-05 09:16:00.000 97.7 [degF] Temperature 2024-10-31 17:21:00.000 97.5 [degF] Temperature 2024-10-23 16:14:00.000 97.3 [degF] Temperature 2024-10-18 11:12:00.000 98 [degF] Temperature 2024-10-17 11:14:00.000 97.9 [degF] Temperature 2024-10-16 10:30:00.000 97.2 [degF] Temperature 2024-10-11 12:30:00.000 98.3 [degF] Temperature 2024-10-11 10:02:00.000 98.3 [degF] Temperature 2024-10-09 13:48:00.000 98.1 [degF] Temperature 2024-10-08 10:47:00.000 96.2 [degF] Temperature 2024-10-04 11:02:00.000 98.2 [degF] BMI (%) 2024-10-31 17:09:32.000 23 kg/m2 BMI (%) 2024-10-04 11:02:00.000 22 kg/m2 Height 2024-10-31 17:09:19.000 62 [in_us] Height 2024-10-04 11:02:00.000 62 [in_us] Pulse 2024-11-12 11:20:00.000 94 /min Pulse 2024-11-05 09:16:00.000 90 /min Pulse 2024-10-31 17:21:00.000 100 /min Pulse 2024-10-23 16:14:00.000 75 /min Pulse 2024-10-18 11:12:00.000 91 /min Pulse 2024-10-17 11:14:00.000 91 /min Pulse 2024-10-16 10:30:00.000 100 /min Pulse 2024-10-11 12:30:00.000 97 /min Pulse 2024-10-11 10:02:00.000 97 /min Pulse 2024-10-09 13:48:00.000 96 /min Pulse 2024-10-08 10:47:00.000 60 /min Pulse 2024-10-04 11:02:00.000 96 /min O2 Saturation (%) 2024-11-12 11:20:00.000 97 % O2 Saturation (%) 2024-11-05 09:16:00.000 96 % O2 Saturation (%) 2024-10-31 17:21:00.000 97 % O2 Saturation (%) 2024-10-23 16:14:00.000 98 % O2 Saturation (%) 2024-10-18 11:13:00.000 95 % O2 Saturation (%) 2024-10-17 11:14:00.000 98 % O2 Saturation (%) 2024-10-16 10:32:00.000 95 % O2 Saturation (%) 2024-10-11 12:30:00.000 98 % O2 Saturation (%) 2024-10-11 10:04:00.000 95 % O2 Saturation (%) 2024-10-09 13:48:00.000 95 % O2 Saturation (%) 2024-10-08 10:47:00.000 93 % O2 Saturation (%) 2024-10-04 11:02:00.000 98 % Respirations 2024-11-12 11:20:00.000 16 /min Respirations 2024-11-05 09:16:00.000 16 /min Respirations 2024-10-31 17:21:00.000 16 /min Respirations 2024-10-23 16:14:00.000 20 /min Respirations 2024-10-18 11:12:00.000 18 /min Respirations 2024-10-17 11:14:00.000 18 /min Respirations 2024-10-16 10:30:00.000 18 /min Respirations 2024-10-11 12:30:00.000 18 /min Respirations 2024-10-11 10:02:00.000 18 /min Respirations 2024-10-09 13:48:00.000 18 /min Respirations 2024-10-08 10:47:00.000 16 /min Respirations 2024-10-04 11:02:00.000 16 /min Weight (lbs) 2024-10-31 17:09:32.000 130 [lb_av] Weight (lbs) 2024-10-04 11:02:00.000 125 [lb_av] Systolic Blood Pressure 2024-11-12 11:20:00.000 124 mm [Hg] Systolic Blood Pressure 2024-11-05 09:16:00.000 122 mm [Hg] Systolic Blood Pressure 2024-10-31 17:21:00.000 118 mm [Hg] Systolic Blood Pressure 2024-10-23 16:14:00.000 112 mm [Hg] Systolic Blood Pressure 2024-10-18 11:12:00.000 104 mm [...] 11:02:00.000 150 mm [Hg] Diastolic Blood Pressure 2024-11-12 11:20:00.000 72 mm [Hg] Diastolic Blood Pressure 2024-11-05 09:16:00.000 78 mm [Hg] Diastolic Blood Pressure 2024-10-31 17:21:00.000 80 mm [Hg] Diastolic Blood Pressure 2024-10-23 16:14:00.000 88 mm [Hg] Diastolic Blood Pressure 2024-10-18 11:12:00.000 [...] CONSULTING PHYSICIANS. RN TO OBSERVE AND ASSESS, CIVIL RIGHTS REPRESENTATIVE/CHIEF TECHNOLOGY OFFICER TO OBSERVE FOR RISK FOR FALLS AND INSTRUCT IN FALL PREVENTION, HOME SAFETY, MEDICATION MANAGEMENT, INFECTION PREVENTION, AND NUTRITION MANAGEMENT. RN/CIVIL RIGHTS REPRESENTATIVE/CHIEF TECHNOLOGY OFFICER NURSE MAY PERFORM O2 SATURATION LEVEL. RN TO ASSESS/CIVIL RIGHTS REPRESENTATIVE TO OBSERVE PATIENT, WITH NOTIFICATION TO THE PHYSICIAN IF SATURATION IS 90% IN THE ABSENCE OF MORE SPECIFIC PARAMETERS FROM THE PHYSICIAN. AGENCY MAY PERFORM A RESUMPTION OF CARE VISIT FOLLOWING ANY HOSPITAL ADMISSION. RN/CIVIL RIGHTS REPRESENTATIVE/CHIEF TECHNOLOGY OFFICER TO MONITOR CO-MORBID CONDITIONS LISTED ON THE PLAN OF CARE AND ANY NEW CONDITIONS THAT PRESENT THEMSELVES DURING THIS EPISODE TO IDENTIFY CHANGES AND INTERVENE TO MINIMIZE COMPLICATIONS. [code = RN TO OBSERVE, ASSESS, EVALUATE, AND DEVELOP AN INDIVIDUALIZED PLAN OF CARE. AGENCY MAY ACCEPT ORDERS FROM CONSULTING PHYSICIANS. RN TO OBSERVE AND ASSESS, CIVIL RIGHTS REPRESENTATIVE/CHIEF TECHNOLOGY OFFICER TO OBSERVE FOR RISK FOR FALLS AND INSTRUCT IN FALL PREVENTION, HOME SAFETY, MEDICATION MANAGEMENT, INFECTION PREVENTION, AND NUTRITION MANAGEMENT. RN/CIVIL RIGHTS REPRESENTATIVE/CHIEF TECHNOLOGY OFFICER NURSE MAY PERFORM O2 SATURATION LEVEL. RN TO ASSESS/CIVIL RIGHTS REPRESENTATIVE TO OBSERVE PATIENT, WITH NOTIFICATION TO THE PHYSICIAN IF SATURATION IS 90% IN THE ABSENCE OF MORE SPECIFIC PARAMETERS FROM THE PHYSICIAN. AGENCY MAY PERFORM A RESUMPTION OF CARE VISIT FOLLOWING ANY HOSPITAL ADMISSION. RN/CIVIL RIGHTS REPRESENTATIVE/CHIEF TECHNOLOGY OFFICER TO MONITOR CO-MORBID CONDITIONS LISTED ON THE PLAN OF CARE AND ANY NEW CONDITIONS THAT PRESENT THEMSELVES DURING THIS EPISODE TO IDENTIFY CHANGES AND INTERVENE TO MINIMIZE COMPLICATIONS.] Future Scheduled Test MEDICATION MANAGEMENT; RN/CIVIL RIGHTS REPRESENTATIVE/CHIEF TECHNOLOGY OFFICER TO REVIEW MEDICATIONS FOR INTERACTIONS, EFFECTIVENESS OF DRUG THERAPY, AND SIGNS/SYMPTOMS OF ADVERSE REACTIONS. MAY INSTRUCT AND REINFORCE MEDICATION TEACHING RELATED TO THE USE OF MEDICATIONS, DOSAGE, FREQUENCY, PURPOSE, SIDE EFFECTS, AND TO REPORT COMPLICATIONS. [code = MEDICATION MANAGEMENT; RN/CIVIL RIGHTS REPRESENTATIVE/CHIEF TECHNOLOGY OFFICER TO REVIEW MEDICATIONS FOR INTERACTIONS, EFFECTIVENESS OF DRUG THERAPY, AND SIGNS/SYMPTOMS OF ADVERSE REACTIONS. MAY INSTRUCT AND REINFORCE MEDICATION TEACHING RELATED TO THE USE OF MEDICATIONS, DOSAGE, FREQUENCY, PURPOSE, SIDE EFFECTS, AND TO REPORT COMPLICATIONS.] Future Scheduled Test RISK FOR H OSPITALIZATION; RN TO ASSESS/TEACH, CHIEF TECHNOLOGY OFFICER/CIVIL RIGHTS REPRESENTATIVE TO OBSERVE/TEACH PATIENT/CAREGIVER ON RISK FOR HOSPITALIZATION/EMERGENCY ROOM VISITS, TEACH SIGNS AND SYMPTOMS THAT PUT PATIENT AT RISK, WHEN TO NOTIFY NURSE/PHYSICIAN OF COMPLICATIONS/DECLINE, AND WHEN TO CALL 911. [code = RISK FOR HOSPITALIZATION; RN TO ASSESS/TEACH, CHIEF TECHNOLOGY OFFICER/CIVIL RIGHTS REPRESENTATIVE TO OBSERVE/TEACH PATIENT/CAREGIVER ON RISK FOR HOSPITALIZATION/EMERGENCY ROOM VISITS, TEACH SIGNS AND SYMPTOMS THAT PUT PATIENT AT RISK, WHEN TO NOTIFY NURSE/PHYSICIAN OF COMPLICATIONS/DECLINE, AND WHEN TO CALL 911.] Future Scheduled Test SKIN INTEG RITY RN TO ASSESS AND TEACH, CIVIL RIGHTS REPRESENTATIVE/CHIEF TECHNOLOGY OFFICER TO OBSERVE AND TEACH INTEGUMENTARY STATUS TO IDENTIFY CHANGES AND INTERVENE TO MINIMIZE COMPLICATIONS. PROVIDE SKILLED TEACHING OF GENERAL WOUND AND SKIN CARE AND PREVENTION RELATED TO POTENTIAL FOR OR ACTUAL ALTERED SKIN INTEGRITY [code = SKIN INTEGRITY RN TO ASSESS AND TEACH, CIVIL RIGHTS REPRESENTATIVE/CHIEF TECHNOLOGY OFFICER TO OBSERVE AND TEACH INTEGUMENTARY STATUS TO IDENTIFY CHANGES AND INTERVENE TO MINIMIZE COMPLICATIONS. PROVIDE SKILLED TEACHING OF GENERAL WOUND AND SKIN CARE AND PREVENTION RELATED TO POTENTIAL FOR OR ACTUAL ALTERED SKIN INTEGRITY ] Future Scheduled Test PAIN MANAG EMENT; RN TO ASSESS AND TEACH, CHIEF TECHNOLOGY OFFICER/CIVIL RIGHTS REPRESENTATIVE TO OBSERVE AND TEACH AND PROVIDE EDUCATION ON PAIN MANAGEMENT TECHNIQUES. [code = PAIN MANAGEMENT; RN TO ASSESS AND TEACH, CHIEF TECHNOLOGY OFFICER/CIVIL RIGHTS REPRESENTATIVE TO OBSERVE AND TEACH AND PROVIDE EDUCATION ON PAIN MANAGEMENT TECHNIQUES.] Future Scheduled Test GENITOURIN CLIFTON MANAGEMENT; RN TO ASSESS AND TEACH, CIVIL RIGHTS REPRESENTATIVE/CHIEF TECHNOLOGY OFFICER TO OBSERVE AND TEACH RELATED TO ALTERED GENITOURINARY STATUS TO MINIMIZE COMPLICATIONS AND REDUCE HOSPITALIZATION. [code = GENITOURINARY MANAGEMENT; RN TO ASSESS AND TEACH, CIVIL RIGHTS REPRESENTATIVE/CHIEF TECHNOLOGY OFFICER TO OBSERVE AND TEACH RELATED TO ALTERED GENITOURINARY STATUS TO MINIMIZE COMPLICATIONS AND REDUCE HOSPITALIZATION.] Future Scheduled Test URINARY IN CONTINENCE MANAGEMENT; RN TO ASSESS AND TEACH, CIVIL RIGHTS REPRESENTATIVE/LVNTO OBSERVE AND TEACH MANAGEMENT OF URINARY INCONTINENCE. TEACH/INSTRUCT ON PREVENTING INFECTION AND SKIN BREAKDOWN. RN/CIVIL RIGHTS REPRESENTATIVE/CHIEF TECHNOLOGY OFFICER MAY INSTRUCT IN BLADDER TRAINING PROGRAM INDICATED. [code = URINARY INCONTINENCE MANAGEMENT; RN TO ASSESS AND TEACH, CIVIL RIGHTS REPRESENTATIVE/LVNTO OBSERVE AND TEACH MANAGEMENT OF URINARY INCONTINENCE. TEACH/INSTRUCT ON PREVENTING INFECTION AND SKIN BREAKDOWN. RN/CIVIL RIGHTS REPRESENTATIVE/CHIEF TECHNOLOGY OFFICER MAY INSTRUCT IN BLADDER TRAINING PROGRAM INDICATED.] Future Scheduled Test FALL REDUC TION MANAGEMENT; RN TO ASSESS AND OBSERVE, CIVIL RIGHTS REPRESENTATIVE/CHIEF TECHNOLOGY OFFICER TO OBSERVE FALL RISK FACTORS AND EDUCATE PATIENT/CAREGIVER ON STRATEGIES TO MINIMIZE THE RISK OF FALLING. [code = FALL REDUCTION MANAGEMENT; RN TO ASSESS AND OBSERVE, CIVIL RIGHTS REPRESENTATIVE/CHIEF TECHNOLOGY OFFICER TO OBSERVE FALL RISK FACTORS AND EDUCATE PATIENT/CAREGIVER ON STRATEGIES TO MINIMIZE THE RISK OF FALLING.] Future Scheduled Test PHYSICAL T HERAPIST TO EVALUATE FOR INCREASED WEAKNESS [code = PHYSICAL THERAPIST TO EVALUATE FOR INCREASED WEAKNESS] Future Scheduled Test OCCUPATION AL THERAPIST TO EVALUATE FOR FUNCTIONAL DECLINE [code = OCCUPATIONAL THERAPIST TO EVALUATE FOR FUNCTIONAL DECLINE] Goal 2024-10-31 Patient Goal - UNABLET TO ST ATE GOALS. Goal Patient Goal - UNABLET TO ST [...] End Date/Time Encounter Type Admission Type Attending [facility] Care Department Encounter ID Discharge Date Discharge Status Discharge Condition Discharge Reason Percent Goals Met 2024-10-04 00:00:00 2024-12-02 00:00:00 Outpatient NEW ADMISSION ANTONIETA TOMLINSON [facility] [id number] 26.32
--- OUTSIDE RECORDS SUMMARY | 2024-11-12 18:18 | XMS_ITS | Clinical Summary ---
Author Organization Unknown Care Team Providers Care Circulation Representative Name Role Phone FAITH AJMELIDA VENTURA Unavailable U oswaldo TOMLINSON RN, ANTONIETA Unavailable Unavailabl e MARIE PT, MARGARET Unavailable Unavailable LUPCHO DIRECTOR OF HEALTH CARE MARKETING/MALAVE, JEANNE Unavailable Unavaila ble WENDY KUMARN, BRADLEY Unavailable Unavailable GLENN ACADEMIC SUPPORT ASSISTANT, SCOTT Unavailable Unavailabl e TASHA OT, GABE Unavailable Unavailable Payers Payer Name Policy Type Policy Number Effective Date Expira tion Date [place]ICARE.[place] [id number] Problems Condition Name Condition Details Condition Category [...] 500 mg capsule 2023-05 00:00: 00 Yes [id number] URINARY HEALTH 1 capsule DAILY 1 capsule DAILY (route: oral) Med Classific ation: Alternati ve Therapy dimethyl fumarate 240 mg capsule,del ayed release 2023-05 00:00: 00 Yes [id number] MULTIPLE SCLOROSIS 1 capsule 2 TIMES DAILY 1 capsule 2 TIMES DAILY (route: oral) Med Classific ation: Multiple Sclerosis Agents lisinopril 5 mg tablet 12-19 00:00: 00 10-17 23:59 :00 No [id number] BLOOD PRESSURE 1 tablet DAILY 1 tablet DAILY (route: oral) Med Classific ation: Cardiovas cular Therapy Agents valacyclovi r 500 mg tablet 2023-05 00:00: 00 Yes [id number] PREVENT VIRAL INFECTION 2 tablet EVERY 12 HOURS 2 tablet EVERY 12 HOURS (route: oral) Med Classific ation: Anti-Infe ctive Agents Advil 200 mg tablet 10-13 00:00: 00 Yes [id number] PAIN 200 mg DIRECTED 200 mg DIRECTED (route: oral) Med Classific ation: Analgesic , Anti-infl ammatory or Antipyret ic Miralax 17 gram/dose oral powder 10-14 00:00: 00 Yes [id number] CONSTIPATIO N 17 gram DAILY 17 gram [...] CONSULTING PHYSICIANS. RN TO OBSERVE AND ASSESS, CLINICAL SUPPORT TECH/GENERATOR REPAIRER TO OBSERVE FOR RISK FOR FALLS AND INSTRUCT IN FALL PREVENTION, HOME SAFETY, MEDICATION MANAGEMENT, INFECTION PREVENTION, AND NUTRITION MANAGEMENT. RN/CLINICAL SUPPORT TECH/GENERATOR REPAIRER NURSE MAY PERFORM O2 SATURATION LEVEL. RN TO ASSESS/CLINICAL SUPPORT TECH TO OBSERVE PATIENT, WITH NOTIFICATION TO THE PHYSICIAN IF SATURATION IS 90% IN THE ABSENCE OF MORE SPECIFIC PARAMETERS FROM THE PHYSICIAN. AGENCY MAY PERFORM A RESUMPTION OF CARE VISIT FOLLOWING ANY HOSPITAL ADMISSION. RN/CLINICAL SUPPORT TECH/GENERATOR REPAIRER TO MONITOR CO-MORBID CONDITIONS LISTED ON THE PLAN OF CARE AND ANY NEW CONDITIONS THAT PRESENT THEMSELVES DURING THIS EPISODE TO IDENTIFY CHANGES AND INTERVENE TO MINIMIZE COMPLICATIONS. [code = RN TO OBSERVE, ASSESS, EVALUATE, AND DEVELOP AN INDIVIDUALIZED PLAN OF CARE. AGENCY MAY ACCEPT ORDERS FROM CONSULTING PHYSICIANS. RN TO OBSERVE AND ASSESS, CLINICAL SUPPORT TECH/GENERATOR REPAIRER TO OBSERVE FOR RISK FOR FALLS AND INSTRUCT IN FALL PREVENTION, HOME SAFETY, MEDICATION MANAGEMENT, INFECTION PREVENTION, AND NUTRITION MANAGEMENT. RN/CLINICAL SUPPORT TECH/GENERATOR REPAIRER NURSE MAY PERFORM O2 SATURATION LEVEL. RN TO ASSESS/CLINICAL SUPPORT TECH TO OBSERVE PATIENT, WITH NOTIFICATION TO THE PHYSICIAN IF SATURATION IS 90% IN THE ABSENCE OF MORE SPECIFIC PARAMETERS FROM THE PHYSICIAN. AGENCY MAY PERFORM A RESUMPTION OF CARE VISIT FOLLOWING ANY HOSPITAL ADMISSION. RN/CLINICAL SUPPORT TECH/GENERATOR REPAIRER TO MONITOR CO-MORBID CONDITIONS LISTED ON THE PLAN OF CARE AND ANY NEW CONDITIONS THAT PRESENT THEMSELVES DURING THIS EPISODE TO IDENTIFY CHANGES AND INTERVENE TO MINIMIZE COMPLICATIONS.] Future Scheduled Test MEDICATION MANAGEMENT; RN/CLINICAL SUPPORT TECH/GENERATOR REPAIRER TO REVIEW MEDICATIONS FOR INTERACTIONS, EFFECTIVENESS OF DRUG THERAPY, AND SIGNS/SYMPTOMS OF ADVERSE REACTIONS. MAY INSTRUCT AND REINFORCE MEDICATION TEACHING RELATED TO THE USE OF MEDICATIONS, DOSAGE, FREQUENCY, PURPOSE, SIDE EFFECTS, AND TO REPORT COMPLICATIONS. [code = MEDICATION MANAGEMENT; RN/CLINICAL SUPPORT TECH/GENERATOR REPAIRER TO REVIEW MEDICATIONS FOR INTERACTIONS, EFFECTIVENESS OF DRUG THERAPY, AND SIGNS/SYMPTOMS OF ADVERSE REACTIONS. MAY INSTRUCT AND REINFORCE MEDICATION TEACHING RELATED TO THE USE OF MEDICATIONS, DOSAGE, FREQUENCY, PURPOSE, SIDE EFFECTS, AND TO REPORT COMPLICATIONS.] Future Scheduled Test RISK FOR H OSPITALIZATION; RN TO ASSESS/TEACH, GENERATOR REPAIRER/CLINICAL SUPPORT TECH TO OBSERVE/TEACH PATIENT/CAREGIVER ON RISK FOR HOSPITALIZATION/EMERGENCY ROOM VISITS, TEACH SIGNS AND SYMPTOMS THAT PUT PATIENT AT RISK, WHEN TO NOTIFY NURSE/PHYSICIAN OF COMPLICATIONS/DECLINE, AND WHEN TO CALL 911. [code = RISK FOR HOSPITALIZATION; RN TO ASSESS/TEACH, GENERATOR REPAIRER/CLINICAL SUPPORT TECH TO OBSERVE/TEACH PATIENT/CAREGIVER ON RISK FOR HOSPITALIZATION/EMERGENCY ROOM VISITS, TEACH SIGNS AND SYMPTOMS THAT PUT PATIENT AT RISK, WHEN TO NOTIFY NURSE/PHYSICIAN OF COMPLICATIONS/DECLINE, AND WHEN TO CALL 911.] Future Scheduled Test SKIN INTEG RITY RN TO ASSESS AND TEACH, CLINICAL SUPPORT TECH/GENERATOR REPAIRER TO OBSERVE AND TEACH INTEGUMENTARY STATUS TO IDENTIFY CHANGES AND INTERVENE TO MINIMIZE COMPLICATIONS. PROVIDE SKILLED TEACHING OF GENERAL WOUND AND SKIN CARE AND PREVENTION RELATED TO POTENTIAL FOR OR ACTUAL ALTERED SKIN INTEGRITY [code = SKIN INTEGRITY RN TO ASSESS AND TEACH, CLINICAL SUPPORT TECH/GENERATOR REPAIRER TO OBSERVE AND TEACH INTEGUMENTARY STATUS TO IDENTIFY CHANGES AND INTERVENE TO MINIMIZE COMPLICATIONS. PROVIDE SKILLED TEACHING OF GENERAL WOUND AND SKIN CARE AND PREVENTION RELATED TO POTENTIAL FOR OR ACTUAL ALTERED SKIN INTEGRITY ] Future Scheduled Test PAIN MANAG EMENT; RN TO ASSESS AND TEACH, GENERATOR REPAIRER/CLINICAL SUPPORT TECH TO OBSERVE AND TEACH AND PROVIDE EDUCATION ON PAIN MANAGEMENT TECHNIQUES. [code = PAIN MANAGEMENT; RN TO ASSESS AND TEACH, GENERATOR REPAIRER/CLINICAL SUPPORT TECH TO OBSERVE AND TEACH AND PROVIDE EDUCATION ON PAIN MANAGEMENT TECHNIQUES.] Future Scheduled Test GENITOURIN CLIFTON MANAGEMENT; RN TO ASSESS AND TEACH, CLINICAL SUPPORT TECH/GENERATOR REPAIRER TO OBSERVE AND TEACH RELATED TO ALTERED GENITOURINARY STATUS TO MINIMIZE COMPLICATIONS AND REDUCE HOSPITALIZATION. [code = GENITOURINARY MANAGEMENT; RN TO ASSESS AND TEACH, CLINICAL SUPPORT TECH/GENERATOR REPAIRER TO OBSERVE AND TEACH RELATED TO ALTERED GENITOURINARY STATUS TO MINIMIZE COMPLICATIONS AND REDUCE HOSPITALIZATION.] Future Scheduled Test URINARY IN CONTINENCE MANAGEMENT; RN TO ASSESS AND TEACH, CLINICAL SUPPORT TECH/LVNTO OBSERVE AND TEACH MANAGEMENT OF URINARY INCONTINENCE. TEACH/INSTRUCT ON PREVENTING INFECTION AND SKIN BREAKDOWN. RN/CLINICAL SUPPORT TECH/GENERATOR REPAIRER MAY INSTRUCT IN BLADDER TRAINING PROGRAM INDICATED. [code = URINARY INCONTINENCE MANAGEMENT; RN TO ASSESS AND TEACH, CLINICAL SUPPORT TECH/LVNTO OBSERVE AND TEACH MANAGEMENT OF URINARY INCONTINENCE. TEACH/INSTRUCT ON PREVENTING INFECTION AND SKIN BREAKDOWN. RN/CLINICAL SUPPORT TECH/GENERATOR REPAIRER MAY INSTRUCT IN BLADDER TRAINING PROGRAM INDICATED.] Future Scheduled Test FALL REDUC TION MANAGEMENT; RN TO ASSESS AND OBSERVE, CLINICAL SUPPORT TECH/GENERATOR REPAIRER TO OBSERVE FALL RISK FACTORS AND EDUCATE PATIENT/CAREGIVER ON STRATEGIES TO MINIMIZE THE RISK OF FALLING. [code = FALL REDUCTION MANAGEMENT; RN TO ASSESS AND OBSERVE, CLINICAL SUPPORT TECH/GENERATOR REPAIRER TO OBSERVE FALL RISK FACTORS AND EDUCATE [...] End Date/Time Encounter Type Admission Type Attending [facility] Care Department Encounter ID Discharge Date Discharge Status Discharge Condition Discharge Reason Percent Goals Met 2024-10-04 00:00:00 2024-12-02 00:00:00 Outpatient NEW ADMISSION ANTONIETA TOMLINSON [facility] [id number] 26.32
[2024-11-12 19:27] LABS: Hematocrit 36.7 % (37.0-47.0); Hemoglobin 11.8 g/dL (12.0-15.0); Immature Granulocyte Percent A 0.5 % (0-0.5); Lymphocytes Absolute Auto 1.38 K/mm3 (0.9-3.2); Mean Corpuscular HGB Conc 32.2 g/dl (32-36); Mean Corpuscular Hemoglobin 26.4 pg (26-34); Mean Corpuscular Volume 82.1 fl (80-100); Nucleated Red Blood Cells Absolute Auto 0.000 K/mm3 (0.0-0.012); Nucleated Red Blood Cells Perc 0.0 % (0.0-0.2); Platelet Count Result 332 k/mm3 (150-375); Red Blood Count 4.47 M/mm3 (4.2-5.4); White Blood Count 7.5 K/mm3 (4.5-10.0)
[2024-11-12 19:39] LABS: Alanine Aminotransferase 12 U/L (6-35); Albumin Level 3.5 g/dL (3.5-5.1); Alkaline Phosphatase 65 U/L (38-126); Anion Gap 14 mmol/L (4-12); Aspartate Amino Transferase 27 U/L (14-36); Bilirubin,Total 0.8 mg/dL (0.2-1.3); Blood Urea Nitrogen 23 mg/dL (7-17); Calcium 9.8 mg/dL (8.4-10.2); Carbon Dioxide 26 mmol/L (22-30); Chloride 116 mmol/L (98-107); Estimated Glomerular Filt Rate > 60; Glucose 82 mg/dL (65-110); Magnesium 2.0 mg/dL (1.6-2.3); Potassium 3.1 mmol/L (3.4-5.0); Sodium 156 mmol/L (137-145); Total Protein 8.5 g/dL (6.3-8.2)
[2024-11-12 19:42] LABS: Add Urine Microscopic? YES; Appearance Urine Cloudy (Clear); Glucose Urine UA Negative (Negative); Leukocyte Esterase Ur 2+ LEU/UL (Negative); Need Manual Microscopic Reviewed; Nitrate Urine Negative (Negative); Specific Grav Ur 1.023 (1.001-1.035)
--- NOTE | 2024-11-12 19:53 | ED_ITS ---
HPI - Wound/Laceration General Chief Complaint: Wound/Laceration Stated Complaint: sacral wound Time Seen by Provider: 11/12/24 18:12 History of Present Illness HPI narrative: 64-year-old female with a past medical history including multiple sclerosis leaving her debilitated at bend lb, paroxysmal AFib on Eliquis, DVT on anticoagulation, scoliosis, hypertension, sacral wound status post debridement. Patient presents to the emergency depart with her son who was her caregiver and lives with the patient and they were concerned about the sacral wound. They added wound nurse that came out this week and noticed that it potentially could have been infected so son brought her to the hospital. Son also knows that she has had some waxing and waning mentation which is normal for her MS and usually she is quite talkative. She eats a minced moist diet from her dysphagia and aspiration. Patient has been afebrile at home. Collateral information limited secondary to patient's AMS and mental status at baseline. Son who was also done some dressing changes has not noticed any purulent drainage or foul odor from the wound. Recent debridement General surgery on inpatient basis several weeks ago. Recently discharged from the hospital on the of last month. Related Data Home Medications ?Medication ?Instructions ?Recorded ?Confirmed ?Last Taken ?Type polyethylene glycol 3350 17 4 g PO DAILY 10/23/24 10/23/24 Unknown History gram/dose oral powder (ClearLax) Allergies Allergy/AdvReac Type Severity Reaction Status Date / Time Seasonal Allergies Allergy Mild itchiness Uncoded 10/21/24 12:45 Review of Systems 2 Review of Systems: As reviewed above in HPI [facility] Past Medical History Medical History ESTEFANÍA (acute kidney injury) Venous insufficiency of lower extremity Scoliosis History of ectopic Paroxysmal atrial fibrillation Multiple sclerosis (1997) Hypertension Cellulitis Of the left lower extreme Surgical History Surgical History History of 2 sections Family History Family History Father Cerebrovascular accident Hypertension CAD (coronary artery disease) Social History Social History Social History: The patient is lives with her son for the last 3 years until her recent hospitalization in May at which time she was discharged to [facility] for rehab. She raised 2 sons. She is currently living with her oldest son. At baseline the patient can report the walk. Code status: Full code Surrogate decision maker: Olivier Goznalez (son) Smoking status: Never smoker Second hand tobacco smoke exposure: No Alcohol intake: never Substance use: never Substance use type: does not use Do You Feel Safe in your Home?: Yes Lack of Transportation: No Lack of Food: Never True Current Housing: I Have Housing Concerned About Future Housing: No Difficulty Paying Gas/Electric Bills: No Difficulty Paying for Meds: No Currently Unemployed: No Education: High School Diploma/GED Difficulty w/ Childcare or Family Care: Decline to Answer Spiritual care concerns: No Exam 2 Narrative: GENERAL: Nontoxic appearing, female, not any acute distress, resting comfortably in bed. HEAD: [Normocephalic, atraumatic.] EYES: [PERRLA and EOMI.] ENT: Nares clear, no rhinorrhea or epistaxis. Mucous membranes moist. NECK: Supple. CHEST: [Clear to auscultation. No respiratory distress.] HEART: [Regular rate and rhythm]. No murmur heard. [Normal peripheral pulses.] ABDOMEN: [Soft, nondistended], [nontender], [No rigidity or guarding] EXTREMITIES: Some minor asymmetric swelling to the right lower extremity from previous DVT SKIN: Large decubitus sacral ulcer, good granulation tissue in the wound margins with nice red margins and muscle without any obvious signs of infection, no purulent drainage, no tenderness of palpation along the wound margins. Sacral bone is exposed without any signs of necrosis or santino osteomyelitis NEURO: Minimally interactive but awake and alert and at baseline mentation PSYCH: [Normal mood and affect.] Course Vital Signs Vital signs: Vital Signs Temperature 36.7 C 11/12/24 18:07 Pulse Rate 96 11/12/24 18:07 Respiratory Rate 13 11/12/24 18:07 Blood Pressure 133/82 11/12/24 18:07 Pulse Oximetry 99 11/12/24 18:07 Oxygen Delivery Room Air 11/12/24 18:07 Temperature 36.7 C 11/12/24 18:07 Pulse Rate 96 11/12/24 18:07 Respiratory Rate 13 11/12/24 18:07 Blood Pressure 133/82 11/12/24 18:07 Pulse Oximetry 99 11/12/24 18:07 Oxygen Delivery Room Air 11/12/24 18:07 MDM - Wound/Laceration MDM Narrative Medical decision making narrative: 64-year-old female with a past medical history including multiple sclerosis leaving her debilitated at bend lb, paroxysmal AFib on Eliquis, DVT on anticoagulation, scoliosis, hypertension, sacral wound status post debridement. Patient presents to the emergency depart with her son who was her caregiver and lives with the patient and they were concerned about the sacral wound. They added wound nurse that came out this week and noticed that it potentially could have been infected so son brought her to the hospital. Son also knows that she has had some waxing and waning mentation which is normal for her MS and usually she is quite talkative. She eats a minced moist diet from her dysphagia and aspiration. Patient has been afebrile at home. Collateral information limited secondary to patient's AMS and mental status at baseline. Son who was also done some dressing changes has not noticed any purulent drainage or foul odor from the wound. Recent debridement General surgery on inpatient basis several weeks ago. Recently discharged from the hospital on the of last month. Examination reveals large decubitus sacral ulcer, good granulation tissue in the wound margins with nice red margins and muscle without any obvious signs of infection, no purulent drainage, no tenderness of palpation along the wound margins. Sacral bone is exposed without any signs of necrosis or santino osteomyelitis. Patient is at her baseline mental status and not any acute distress and does not appear ill appearing. Her vital signs are stable without any tachycardia, fever, hypoxia or blood pressure concerns. Wound does not appear infected. Laboratory studies were drawn including CBC, CMP, lactic acid is CT scan of the abdomen pelvis with contrast with attention to the sacral wounds were ordered to see if there is any other potential causes or source of infection not evident on the surface. Patient provided fluid hydration she is given 30 cc/kg bolus of LR at this time for approximately 1500 mL. Laboratory studies showed no leukocytosis or anemia worse than baseline. Normal platelet count. Electrolytes are deranged with elevated sodium and chloride as well as hypokalemia likely from dehydration and lack of oral intake according to the family who states that she has not been taking enough in over last few days. Creatinine stable at 0.70, BUN is elevated consistent with prerenal azotemia from dehydration. Normal LFTs. Lactic acid is elevated 2.7 likely from dehydration and will be repeated after fluids. Urinalysis shows signs of an infection with bacteria, leukocyte esterase and white red blood cells and she was started on Rocephin for this while cultures are pending. CT of the head was unremarkable for any acute pathology. CT of the abdomen and pelvis shows wounds in the sacrum without any definitive fluid collections, no evidence of appendicitis, diverticulitis or intestinal obstruction. Discussed the case with the family and recommended admission for rehydration and antibiotics for urinary infection which they were amenable 4. Discussed the case with the hospitalist service who accepts the patient to a med [facility] bed and admission orders were placed at this time. Medical Records Attestation: I reviewed the patient's medical records. Lab Data Attestation: I reviewed the patient's lab results. 11/12/24 19:20 11/12/24 19:20 Labs: Lab Results 11/12/24 11/12/24 Range/Units 19:20 19:21 WBC 7.5 (4.5-10.0) K/mm3 RBC 4.47 (4.2-5.4) M/mm3 Hgb 11.8 L (12.0-15.0) g/dL Hct 36.7 L (37.0-47.0) % MCV 82.1 (80-100) fl MCH 26.4 (26-34) pg MCHC 32.2 (32-36) g/dl RDW 18.6 H (11.5-14.5) % Plt Count 332 (150-375) k/mm3 MPV 10.3 (7.4-10.4) fl Immature Gran % (Auto) 0.5 (0-0.5) % Neut % (Auto) 69.1 (45.5-73.1) % Lymph % (Auto) 18.5 (18.3-44.2) % [place] % (Auto) 10.5 H (2.6-8.5) % Eos % (Auto) 0.9 (0-4.4) % Baso % (Auto) 0.5 (0.2-1.2) % Lymph # (Auto) 1.38 (0.9-3.2) K/mm3 [place] # (Auto) 0.8 H (0.1-0.6) K/mm3 Eos # (Auto) 0.1 (0-0.3) K/mm3 Baso # (Auto) 0.0 (0.0-0.1) K/mm3 Abs Immat Gran (auto) 0.04 H (0.00-0.031) K/mm3 Absolute Neuts (auto) 5.1 (1.3-6.7) K/mm3 Absolute Nucleated RBC 0.000 (0.0-0.012) K/mm3 Nucleated RBC % 0.0 (0.0-0.2) % Sodium 156 H (137-145) mmol/L Potassium 3.1 L (3.4-5.0) mmol/L Chloride 116 H (98-107) mmol/L Carbon Dioxide 26 (22-30) mmol/L Anion Gap 14 H (4-12) mmol/L BUN 23 H D (7-17) mg/dL Creatinine 0.70 (0.7-1.0) mg/dL Estim Creat Clear Calc Not Reportable Estimated GFR > 60 (59 - ) Glucose 82 (65-110) mg/dL Lactic Acid 2.7 H (0.7-2.0) mmol/L Calcium 9.8 (8.4-10.2) mg/dL Magnesium 2.0 (1.6-2.3) mg/dL Total Bilirubin 0.8 (0.2-1.3) mg/dL AST 27 (14-36) U/L ALT 12 (6-35) U/L Alkaline Phosphatase 65 (38-126) U/L Total Protein 8.5 H (6.3-8.2) g/dL Albumin 3.5 (3.5-5.1) g/dL Urine Color Yellow (Yellow) Urine Appearance Cloudy H (Clear) Urine pH 6.0 (5.0-9.0) Ur Specific [place] 1.023 (1.001-1.035) Urine Protein 2+ H (Negative) mg/dL Urine Glucose (UA) Negative (Negative) mg/dL Urine Ketones 3+ H (Negative) mg/dL Ur Blood (Man) 2+ H (Negative) Urine Nitrate Negative (Negative) Urine Bilirubin Negative (Negative) Urine Urobilinogen 1.0 (<2.0) mg/dL Add Ur Microanalysis Reviewed Leukocyte Esterase Rfl 2+ H (Negative) CHAI/UL Urine RBC 51-100 H (0-2) /hpf Urine WBC 21-50 H (0-3) /hpf Ur Squamous Epith Cells Moderate (Few) /hpf Urine Bacteria 2+ H /hpf Urine Casts 6-10 Urine Mucus Present /lpf Imaging Data Attestation: I personally reviewed and interpreted this imaging study as follows: My impression: Impressions Head CT 11/12/24 20:46 IMPRESSION: No acute intracranial findings. Abdomen/Pelvis CT 11/12/24 21:13 IMPRESSION: 1. Wound is seen in the area of the sacrum with no definite collection. Surrounding fat stranding is seen. 2. No evidence of appendicitis, diverticulitis or intestinal obstruction. Critical Care Time Critical Care Time Critical Care Time: Yes Total Critical Care Time: 35 Discharge Plan Discharge Clinical Impression: Dehydration with hypernatremia, Acute dehydration, ESTEFANÍA (acute kidney injury), Decubitus ulcer of sacral region, stage 4, Multiple sclerosis, Acute hypokalemia, Acidosis, lactic Patient Disposition: Still a Patient Condition: Stable Patient Language: Romansh Prescriptions: No Action valacyclovir [Valtrex] 500 mg Tablet 1,000 mg PO Q12HR Qty: 17 0RF polyethylene glycol 3350 [ClearLax] 17 gram/dose powder 4 g PO DAILY Eliquis 5 mg Tablet 10 mg PO Q12HR Qty: 28 0RF Rx Instructions: Please take Eliquis 10 mg PO BID x 7days until 11/04 Eliquis 5 mg Tablet 5 mg PO Q12HR Qty: 60 0RF Rx Instructions: please start taking Eliquis 5mg PO BID from 11/05 levofloxacin 750 mg tablet 750 mg PO DAILY Qty: 7 0RF dimethyl fumarate [Tecfidera] 240 mg capsule,delayed release(DR/EC) 240 mg PO BID Qty: 180 0RF Follow-up/Referrals: Trish Luciano APRN [Primary Care Provider] - Time of Disposition: 21:50
[2024-11-12] MEDS: LACTATED RINGERS 1,000 ML 999 ML IV CONT (20:02)
[2024-11-12] MEDS: LACTATED RINGERS 500 ML 999 ML IV CONT (20:03)
[2024-11-12 21:45] VITALS: BP 133/66; PULSE 99; RESP 16; O2SAT 98
--- NOTE | 2024-11-12 22:03 | P.HP_ITS ---
H&P: HPI History of Present Illness Date/Time: 11/12/24 22:03 Chief Complaint: Wound check Narrative: This is a debilitated 64-year-old female patient with history of multiple sclerosis, paroxysmal atrial fibrillation on chronic Eliquis, DVT, hypertension, dysphagia and aspiration, ESTEFANÍA and sacral wound who is status post debridement couple of weeks ago and recently discharged here on October 29, 2024 who is brought back to the emergency room this evening for a wound check. Patient currently resides at home with her son who is her primary caregiver and power of environmental attorney for medical purposes. Patient was originally discharged to [facility] and later left there as a discharge as she was running out of days that insurance would pay for in her son reportedly took her home. He has been having a wound nurse, physical therapy through [facility] coming into the home to help with assessment in caregiving. I discussed with the son the bedside a little bit more about patient's baseline and patient is usually alert and oriented to self only. She cannot answer where she is, why she is here or what date or time. She reportedly eats small moist softened foods in small amounts but her son notices that she has been pocketing foods. She has been having her drinks with a thick in her and she has been spoon fed her drinks, however he notes yesterday she did attempt to drink through a straw. He has been doing daily wound care at home cleaning the wound and applying silver gel. Patient is not a good historian and does not provide additional information to her current situation. In the emergency room a workup was performed and EKG shows sinus tachycardia 102 beats per minute and a left axis deviation, vital signs are unremarkable, CT of the head is negative for any acute intracranial findings, CT abdomen and pelvis showing sacral wound without any collection such as abscess. There is fat stranding present. No acute osteomyelitis or other acute intra-abdominal findings present. Labs were significant for electrolyte derangement of sodium of 156, potassium of 3.1, chloride of 116, BUN of 23, lactic acid of 2.7, anion gap of 14, urinalysis showing 3+ ketones, 2+ blood, 2+ leukocyte esterase, 21-50 wbc's, 2+ bacteria with moderate epithelial findings, however given patient's lactic acidosis with marginally elevated anion gap concern is for potential bacterial infection. Patient is therefore started on medications of Rocephin for UTI that will be continued, she received 30 mL/kilos of lactated Ringer's and she is given a 20 mEq K rider. She is being admitted in the setting of miller zeferinog suspected UTI, dehydration as evidenced by electrolyte derangements, chronic sacral wound an acute anion gap lactic acidosis. Physical exam by both this provider and emergency room provider is not concerning for acute infection of current chronic sacral wound. As discussed with ER physician, there are concerns by both of us that the patient's son, although doing what he can to care for his mom, may not be enough in her advanced MS stage. Plan is for care coordination to evaluate as well as PT and OT to make recommendations for discharge planning. Review of Systems Review of Systems: All information received was from the son who is at the bedside. ROS unobtainable: Yes other (Unobtainable per patient.) [facility] Past Medical History Medical History (Updated 11/12/24 @ 22:25 by TRINY Myles) Increased anion gap metabolic acidosis Electrolyte abnormality ESTEFANÍA (acute kidney injury) Venous insufficiency of lower extremity Scoliosis History of ectopic Paroxysmal atrial fibrillation Multiple sclerosis (1997) Hypertension Cellulitis Of the left lower extreme Surgical History Surgical History History of 2 sections Family History Family History Father Cerebrovascular accident Hypertension CAD (coronary artery disease) Social History Social History Social History: The patient is lives with her son for the last 3 years until her recent hospitalization in May at which time she was discharged to [facility] for rehab. She raised 2 sons. She is currently living with her oldest son. At baseline the patient can report the walk. Code status: Full code Surrogate decision maker: Olivier Gonzalez (son) Smoking status: Never smoker Second hand tobacco smoke exposure: No Alcohol intake: never Substance use: never Substance use type: does not use Do You Feel Safe in your Home?: Yes Lack of Transportation: No Lack of Food: Never True Current Housing: I Have Housing Concerned About Future Housing: No Difficulty Paying Gas/Electric Bills: No Difficulty Paying for Meds: No Currently Unemployed: No Education: High School Diploma/GED Difficulty w/ Childcare or Family Care: Decline to Answer Spiritual care concerns: No Meds Home Medications and Allergies Home Medications ?Medication ?Instructions ?Recorded ?Confirmed ?Type dimethyl fumarate 240 mg 240 mg PO BID #180 caps 05/13/24 10/23/24 Rx capsule,delayed release (Tecfidera) valacyclovir 500 mg tablet 1,000 mg (2 x 500 mg) PO Q12HR #17 07/02/24 10/23/24 Rx (Valtrex) tabs polyethylene glycol 3350 17 4 g PO DAILY 10/23/24 10/23/24 History gram/dose oral powder (ClearLax) apixaban 5 mg tablet (Eliquis) 5 mg PO Q12HR #60 tabs 10/29/24 Rx apixaban 5 mg tablet (Eliquis) 10 mg (2 x 5 mg) PO Q12HR #28 tabs 10/29/24 Rx levofloxacin 750 mg tablet 750 mg PO DAILY #7 tabs 10/29/24 Rx Allergies Allergy/AdvReac Type Severity Reaction Status Date / Time Seasonal Allergies Allergy Mild itchiness Uncoded 10/21/24 12:45 Vital Signs Vital Signs - 24 hr 11/12/24 18:07 11/12/24 21:45 Temperature 98.1 F Pulse Rate 96 99 Respiratory Rate 13 16 Blood Pressure 133/82 133/66 Pulse Oximetry 99 98 Oxygen Delivery Room Air Exam Const: General: comfortable and no acute distress Other: Thin, emaciated, appearing older than current age female patient lying supine on stretcher at this time in no acute distress. HENMT: Face/Nose/Sinus: Normal nares present Mouth: Yes dry mucous membranes Other: Flaky lips Eyes: General: appearance normal, both eyes and all related structures Neck: Neck: supple and no JVD Lymphatic: lymphadenopathy not noted Resp: Effort & Inspection: normal respiratory effort Auscultation: clear to auscultation bilaterally Cardio: Rate: regular rate Rhythm: regular rhythm Heart sounds: no ga llops, Murmur heart sound present systolic holo (Grade 2) and no rubs GI: Inspection: non-distended GI Palp: Yes Soft to palpation Auscultation: normal bowel sounds Urinary Catheter: Urinary Catheter: patent and draining and urine clear Skin: General skin exam: normal color Rashes: no rashes noted Wounds: wounds noted sacrum bed granulating well and beefy red, without odor and open; no drainage, not malodorous and without any surrounding erythema Neuro: Speech: normal speech (Patient does answer to name. Calls me by name in clear speech) Motor exam (neuro): Abnormal motor strength present (Generalized weakness, worse in legs) Sensory Exam: normal sensation Other: Alert and oriented to self only Extrem: General: normal to inspection, no edema and no pedal edema Psych: Affect: normal affect Other: Alert oriented to self only H&P: Results Labs Labs: Short CBC 11/12/24 Range/Units 19:20 WBC 7.5 (4.5-10.0) K/mm3 Hgb 11.8 L (12.0-15.0) g/dL Hct 36.7 L (37.0-47.0) % Plt Count 332 (150-375) k/mm3 BMP 11/12/24 19:20 Sodium 156 H Potassium 3.1 L Chloride 116 H Carbon Dioxide 26 BUN 23 H D Creatinine 0.70 Glucose 82 Calcium 9.8 Liver Function 11/12/24 Range/Units 19:20 Total Bilirubin 0.8 (0.2-1.3) mg/dL AST 27 (14-36) U/L ALT 12 (6-35) U/L Alkaline Phosphatase 65 (38-126) U/L Albumin 3.5 (3.5-5.1) g/dL Urine 11/12/24 Range/Units 19:21 Urine Color Yellow (Yellow) Urine Appearance Cloudy H (Clear) Urine pH 6.0 (5.0-9.0) Ur Specific [place] 1.023 (1.001-1.035) Urine Protein 2+ H (Negative) mg/dL Urine Glucose (UA) Negative (Negative) mg/dL Assessment and Plan Assessment and plan (1) UTI (urinary tract infection): Code(s): N39.0 - Urinary tract infection, site not specified Status: Acute Assessment and Plan: * As evidenced by urinalysis with 2+ leuk esterase, 21-50 wbc's and 2+ bacteria. * Urine culture pending * Continue Rocephin 1 g Q 24 hours * Trend and monitor vital signs and daily labs (2) Dehydration: Code(s): E86.0 - Dehydration Status: Acute Assessment and Plan: * As evidenced by 3+ ketones in urine, hypernatremia of 156, hypokalemia of 3.1, BUN of 23 and chloride of 116. * Patient received 30 mL/kilos of LR in ER * Will continue maintenance fluids with D5 LR at 100 mL/hours as patient will be kept NPO for swallow eval and noted glucose on labs is 82. * Trended monitor labs * Accurate output measurement with Stone (3) Decubitus ulcer of sacral region, unstageable: Code(s): L89.150 - Pressure ulcer of sacral region, unstageable Status: Chronic Assessment and Plan: * Consult wound care, appreciate their recommendations * CT scan abdomen pelvis did not appreciate any osteomyelitis or abscess formation related to wound. * Consider surgery consult should wound start changing in appearance. (4) Electrolyte abnormality: Code(s): E87.8 - Other disorders of electrolyte and fluid balance, not elsewhere classified Status: Acute Assessment and Plan: * As noted potassium is 3.1, sodium is 156, chloride is 116 * Suspect due to dehydration secondary to anion gap lactic acidosis which is most likely due to starvation ketosis as patient also has 3+ ketones in her urine. * Patient has received 20 mEq of potassium chloride per IV * She has received 30 milliliters/kilogram of lactated Ringer's * We will continue to monitor and trend labs * Hydrate with D5 LR at 100 mL/hour for now. (5) Increased anion gap metabolic acidosis: Code(s): E87.29 - Other acidosis Status: Acute Assessment and Plan: * As evidenced by lactic acid of 2.7, 3+ ketonuria, and anion gap of 14 * Suspect starvation ketosis which likely led to patient's current dehydration and electrolyte abnormality * Correcting with IV fluids. * Repeat lactic acid is 1.4 after hydration * Continue to monitor and trend labs (6) Paroxysmal atrial fibrillation: Code(s): I48.0 - Paroxysmal atrial fibrillation Status: Chronic Assessment and Plan: * Chronic in nature * Not currently in AFib * Continue Eliquis (7) Hypertension: Qualifiers: Hypertension type: primary hypertension Qualified Code(s): I10 - Essential (primary) hypertension Code(s): I10 - Essential (primary) hypertension Status: Chronic Assessment and Plan: * Continue home medications once they have been verified and confirmed and patient is able to take oral medications * Monitor in the interim time and if needed substitute IV. (8) Anticoagulated by anticoagulation treatment: Code(s): Z79.01 - senior living (current) use of anticoagulants Status: Chronic Assessment and Plan: * Continue Eliquis once patient is able to tolerate oral medications and they have been verified and confirmed * In the interim time will utilize Lovenox. (9) Multiple sclerosis: Onset Date: 1997 Code(s): G35 - Multiple sclerosis Status: Chronic Assessment and Plan: * Advanced, suspect end-stage causing complete debility for patient. * Will have PT and OT evaluate and care coordination consult for discharge planning * Suspect pt is actually having Failure To Thrive at this stage in her MS. (10) Dysphagia: Qualifiers: Dysphagia type: unspecified Qualified Code(s): R13.10 - Dysphagia, unspecified Code(s): R13.10 - Dysphagia, unspecified Status: Acute Assessment and Plan: * Suspect acute on chronic. Patient's son states that he notices she has been pocketing foods in her mouth. They have also been having to spoon feed her her drinks with a thickened wall. Concern for high risk of aspiration. * Speech evaluation ordered for swallow eval * NPO for now with IV fluid hydration * Consider GI/surgery consult for potential feeding tube if needed Quality VTE Prophylaxis VTE prophylaxis: pharmacologic ordered Hospitalist MIPS Advance Care Plan I have confirmed that the patient's Advanced Care Plan is present, code status is documented, or surrogate decision maker is listed in patient medical record.: Yes Medication Reconciliation I have utilized all available resources to obtain, update and review the patients current medications (includes all prescriptions, OTC, herbals, cannabis, and nutritional supplements).: Yes
--- NOTE | 2024-11-12 22:03 | PC.NURSE ---
MD Hubbard verbally states we do not need cultures before starting antibiotics.
--- NOTE | 2024-11-12 22:19 | PC.NURSE ---
RN checked with [employer] medication link and MD Hubbard to see if LR and potassium can run together. both states they can.
[2024-11-12] MEDS: KCL 20 MEQ/SW 100 ML 100 ML 50 MEQ IVPB (22:24)
[2024-11-12 22:53] VITALS: BP 120/71; PULSE 91; RESP 19; O2SAT 98
[2024-11-12 23:35] VITALS: BMI 18.1
--- NOTE | 2024-11-12 23:44 | WNDPHOTO ---
PHOTO ONLY - See Nursing Notes and/ or assessments for documentation.
[2024-11-13 00:09] VITALS: BP 135/85; PULSE 93; RESP 14; TEMP 36.4; O2SAT 100
[2024-11-13] MEDS: DEXTROSE 5%/LACTATED RINGERS 1,000 ML 100 ML IV CONT ×2 (00:53→13:56)
[2024-11-13 05:30] VITALS: BP 135/87; PULSE 98; RESP 14; TEMP 36.2; O2SAT 98
[2024-11-13 06:16] LABS: Hematocrit 26.7 % (37.0-47.0); Hemoglobin 8.8 g/dL (12.0-15.0); Immature Granulocyte Percent A 0.7 % (0-0.5); Lymphocytes Absolute Auto 0.73 K/mm3 (0.9-3.2); Mean Corpuscular HGB Conc 33.0 g/dl (32-36); Mean Corpuscular Hemoglobin 26.9 pg (26-34); Mean Corpuscular Volume 81.7 fl (80-100); Nucleated Red Blood Cells Absolute Auto 0.000 K/mm3 (0.0-0.012); Nucleated Red Blood Cells Perc 0.0 % (0.0-0.2); Platelet Count Result 340 k/mm3 (150-375); Red Blood Count 3.27 M/mm3 (4.2-5.4); White Blood Count 5.8 K/mm3 (4.5-10.0)
[2024-11-13 06:48] LABS: Alanine Aminotransferase 8 U/L (6-35); Albumin Level 2.8 g/dL (3.5-5.1); Alkaline Phosphatase 45 U/L (38-126); Anion Gap 8 mmol/L (4-12); Aspartate Amino Transferase 24 U/L (14-36); Bilirubin,Total 0.5 mg/dL (0.2-1.3); Blood Urea Nitrogen 15 mg/dL (7-17); Calcium 9.1 mg/dL (8.4-10.2); Carbon Dioxide 25 mmol/L (22-30); Chloride 117 mmol/L (98-107); Estimated CRCL calculation 73 ml/min; Estimated Glomerular Filt Rate > 60; Glucose 105 mg/dL (65-110); Magnesium 1.8 mg/dL (1.6-2.3); Potassium 3.2 mmol/L (3.4-5.0); Sodium 150 mmol/L (137-145); Total Protein 7.0 g/dL (6.3-8.2)
[2024-11-13] MEDS: ENOXAPARIN 40 MG/0.4 ML SYRINGE SUB-Q (08:45)
--- NOTE | 2024-11-13 09:26 | P.PNIM_ITS ---
Progress Note: A&P Assessment and Plan (1) UTI (urinary tract infection): Code(s): N39.0 - Urinary tract infection, site not specified Status: Acute Assessment and Plan: * As evidenced by urinalysis with 2+ leuk esterase, 21-50 wbc's and 2+ bacteria. * Urine culture pending * Continue Rocephin 1 g Q 24 hours * Trend and monitor vital signs and daily labs (2) Dehydration: Code(s): E86.0 - Dehydration Status: Acute Assessment and Plan: * As evidenced by 3+ ketones in urine, hypernatremia of 156, hypokalemia of 3.1, BUN of 23 and chloride of 116. * Patient received 30 mL/kilos of LR in ER * Will continue maintenance fluids with D5 LR at 100 mL/hours as patient will be kept NPO for swallow eval and noted glucose on labs is 82. * Trended monitor labs * Accurate output measurement with Stone (3) Decubitus ulcer of sacral region, unstageable: Code(s): L89.150 - Pressure ulcer of sacral region, unstageable Status: Chronic Assessment and Plan: * Consult wound care, appreciate their recommendations * CT scan abdomen pelvis did not appreciate any osteomyelitis or abscess formation related to wound. * Consider surgery consult should wound start changing in appearance. (4) Electrolyte abnormality: Code(s): E87.8 - Other disorders of electrolyte and fluid balance, not elsewhere classified Status: Acute Assessment and Plan: * hypokalemia and hypernatremia on admission * Suspect due to dehydration secondary to anion gap lactic acidosis which is most likely due to starvation ketosis as patient also has 3+ ketones in her urine. * Patient has received 20 mEq of potassium chloride per IV * She has received 30 milliliters/kilogram of lactated Ringer's * We will continue to monitor and trend labs * Hydrate with D5 LR at 100 mL/hour for now. (5) Increased anion gap metabolic acidosis: Code(s): E87.29 - Other acidosis Status: Acute Assessment and Plan: * As evidenced by lactic acid of 2.7, 3+ ketonuria, and anion gap of 14 * Suspect starvation ketosis which likely led to patient's current dehydration and electrolyte abnormality * Correcting with IV fluids. * Repeat lactic acid is 1.4 after hydration * Continue to monitor and trend labs (6) Paroxysmal atrial fibrillation: Code(s): I48.0 - Paroxysmal atrial fibrillation Status: Chronic Assessment and Plan: * Chronic in nature * Not currently in AFib * Continue Eliquis (7) Hypertension: Qualifiers: Hypertension type: primary hypertension Qualified Code(s): I10 - Essential (primary) hypertension Code(s): I10 - Essential (primary) hypertension Status: Chronic Assessment and Plan: * Continue home medications once they have been verified and confirmed and patient is able to take oral medications * Monitor in the interim time and if needed substitute IV. 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 (9) Multiple sclerosis: Onset Date: 1997 Code(s): G35 - Multiple sclerosis Status: Chronic Assessment and Plan: * Advanced, suspect end-stage causing complete debility for patient. * Suspect pt is actually having Failure To Thrive at this stage in her MS. (10) Dysphagia: Qualifiers: Dysphagia type: unspecified Qualified Code(s): R13.10 - Dysphagia, unspecified Code(s): R13.10 - Dysphagia, unspecified Status: Acute Assessment and Plan: * Suspect acute on chronic. Patient's son states that he notices she has been pocketing foods in her mouth. They have also been having to spoon feed her her drinks with a thickened wall. Concern for high risk of aspiration. * Speech evaluation ordered for swallow eval * NPO for now with IV fluid hydration * Consider GI/surgery consult for potential feeding tube if needed Subjective Date/time seen: 11/13/24 09:26 Interval history: per HPI: This is a debilitated 64-year-old female patient with history of multiple sclerosis, paroxysmal atrial fibrillation on chronic Eliquis, DVT, hypertension, dysphagia and aspiration, ESTEFANÍA and sacral wound who is status post debridement couple of weeks ago and recently discharged here on October 29, 2024 who is brought back to the emergency room this evening for a wound check. Patient currently resides at home with her son who is her primary caregiver and power of employment attorney for medical purposes. Patient was originally discharged to [facility] and later left there as a discharge as she was running out of days that insurance would pay for in her son reportedly took her home. He has been having a wound nurse, physical therapy through [facility] coming into the home to help with assessment in caregiving. I discussed with the son the bedside a little bit more about patient's baseline and patient is usually alert and oriented to self only. She cannot answer where she is, why she is here or what date or time. She reportedly eats small moist softened foods in small amounts but her son notices that she has been pocketing foods. She has been having her drinks with a thick in her and she has been spoon fed her drinks, however he notes yesterday she did attempt to drink through a straw. He has been doing daily wound care at home cleaning the wound and applying silver gel. Patient is not a good historian and does not provide additional information to her current situation. In the emergency room a workup was performed and EKG shows sinus tachycardia 102 beats per minute and a left axis deviation, vital signs are unremarkable, CT of the head is negative for any acute intracranial findings, CT abdomen and pelvis showing sacral wound without any collection such as abscess. There is fat stranding present. No acute osteomyelitis or other acute intra-abdominal findings present. Labs were significant for electrolyte derangement of sodium of 156, potassium of 3.1, chloride of 116, BUN of 23, lactic acid of 2.7, anion gap of 14, urinalysis showing 3+ ketones, 2+ blood, 2+ leukocyte esterase, 21-50 wbc's, 2+ bacteria with moderate epithelial findings, however given patient's lactic acidosis with marginally elevated anion gap concern is for potential bacterial infection. Patient is therefore started on medications of Rocephin for UTI that will be continued, she received 30 mL/kilos of lactated Ringer's and she is given a 20 mEq K rider. She is being admitted in the setting of having suspected UTI, dehydration as evidenced by electrolyte derangements, chronic sacral wound an acute anion gap lactic acidosis. Physical exam by both this provider and emergency room provider is not concerning for acute infection of current chronic sacral wound. As discussed with ER physician, there are concerns by both of us that the patient's son, although doing what he can to care for his mom, may not be enough in her advanced MS stage. Plan is for care coordination to evaluate as well as PT and OT to make recommendations for discharge planning. 11/13/24 Patient was seen and examined at bedside. she is alert and oriented to her name. denies any chest pain, SOb,a bd pain, N/V. wound care team on board. continue IVF for dehydration and hypernatremai. Continue Abx for possible UTI sepsis. follow culture results. Review of Systems Review of Systems: All information received was from the son who is at the bedside. ROS unobtainable: Yes other (Unobtainable per patient.) Exam Const: General: comfortable and no acute distress Other: Thin, emaciated, appearing older than current age female patient lying supine on stretcher at this time in no acute distress. HENMT: Face/Nose/Sinus: Normal nares present Mouth: Yes dry mucous membranes Other: Flaky lips Eyes: General: appearance normal, both eyes and all related structures Neck: Neck: supple and no JVD Lymphatic: lymphadenopathy not noted Resp: Effort & Inspection: normal respiratory effort Auscultation: clear to auscultation bilaterally Cardio: Rate: regular rate Rhythm: regular rhythm Heart sounds: no gallops, Murmur heart sound present systolic holo (Grade 2) and no rubs GI: Inspection: non-distended Auscultation: normal bowel sounds Urinary Catheter: Urinary Catheter: patent and draining and urine clear Skin: General skin exam: normal color, No rashes and wounds noted Rashes: no rashes noted Wounds: wounds noted sacrum bed granulating well and beefy red, without odor and open; no drainage, not malodorous and without any surrounding erythema Neuro: Speech: normal speech (Patient does answer to name. Calls me by name in clear speech) Motor exam (neuro): Abnormal motor strength present (Generalized weakness, worse in legs) Sensory Exam: normal sensation Other: Alert and oriented to self only Extrem: General: normal to inspection, no edema and no pedal edema Psych: Affect: normal affect Other: Alert oriented to self only Objective Data Vital Signs Vital Signs: Vital Signs - 24 hr 11/12/24 18:07 11/12/24 21:45 11/12/24 22:53 Temperature 98.1 F Pulse Rate 96 99 91 Respiratory Rate 13 16 19 Blood Pressure 133/82 133/66 120/71 Pulse Oximetry 99 98 98 Oxygen Delivery Room Air 11/13/24 00:09 11/13/24 05:30 11/13/24 08:00 Temperature 97.6 F 97.1 F L Pulse Rate 93 98 Respiratory Rate 14 14 Blood Pressure 135/85 135/87 Pulse Oximetry 100 98 Oxygen Delivery Room Air Intake/Output Intake/Output: Intake & Output 11/10/24 11/11/24 11/12/24 11/13/24 23:59 23:59 23:59 23:59 Intake Total 550 0 Output Total 400 Balance 550 -400 Meds/Results Medications: Active Medications Generic Name Dose Route Start Last Admin Trade Name Freq PRN Reason Stop Dose Admin Acetaminophen 650 mg 11/12/24 21:41 Acetaminophen 325 Mg Tablet PO Q4H PRN Mild Pain (1-3) or Fever Enoxaparin Sodium 40 mg 11/13/24 09:00 11/13/24 08:45 Enoxaparin 40 Mg/0.4 Ml Syringe SUB-Q 40 mg DAILY APRYL Administration Hydralazine HCl 10 mg 11/12/24 22:28 Hydralazine Hcl 20 Mg/Ml Vial IV PUSH Q8H PRN Blood Pressure - High Ceftriaxone Sodium 1 gm in 50 mls @ 100 mls/hr 11/13/24 22:00 Rocephin 1 Gm/Ns 50 Ml IVPB Q24H APRYL Dextrose/Lactated Ringer's 1,000 mls @ 100 mls/hr 11/12/24 22:30 11/13/24 00:53 Dextrose 5%/Lactated Ringers IV CONT 100 mls/hr .Q10H APRYL Administration Miscellaneous Information 1 each 11/12/24 00:01 11/13/24 08:44 Please Enter Patient Height XX 12/12/24 00:00 Not Given CLARIFY APRYL Ondansetron HCl 4 mg 11/12/24 21:41 Ondansetron Inj 4 Mg/2 Ml Vial IV PUSH Q4H PRN Nausea Radiology Results: ITS Impressions Head CT 11/12/24 20:46 IMPRESSION: No acute intracranial findings. Abdomen/Pelvis CT 11/12/24 21:13 IMPRESSION: 1. Wound is seen in the area of the sacrum with no definite collection. Surrounding fat stranding is seen. 2. No evidence of appendicitis, diverticulitis or intestinal obstruction. Labs Labs: Laboratory Results - last 24 hr 11/12/24 11/12/24 11/12/24 19:20 19:21 21:54 WBC 7.5 RBC 4.47 Hgb 11.8 L Hct 36.7 L MCV 82.1 MCH 26.4 MCHC 32.2 RDW 18.6 H Plt Count 332 MPV 10.3 Immature Gran % (Auto) 0.5 Neut % (Auto) 69.1 Lymph % (Auto) 18.5 [place] % (Auto) 10.5 H Eos % (Auto) 0.9 Baso % (Auto) 0.5 Lymph # (Auto) 1.38 [place] # (Auto) 0.8 H Eos # (Auto) 0.1 Baso # (Auto) 0.0 Abs Immat Gran (auto) 0.04 H Absolute Neuts (auto) 5.1 Absolute Nucleated RBC 0.000 Nucleated RBC % 0.0 Sodium 156 H Potassium 3.1 L Chloride 116 H Carbon Dioxide 26 Anion Gap 14 H BUN 23 H D Creatinine 0.70 Estim Creat Clear Calc Not Reportable Estimated GFR > 60 Glucose 82 Lactic Acid 2.7 H 1.4 Calcium 9.8 Magnesium 2.0 Total Bilirubin 0.8 AST 27 ALT 12 Alkaline Phosphatase 65 Total Protein 8.5 H Albumin 3.5 Urine Color Yellow Urine Appearance Cloudy H Urine pH 6.0 Ur Specific [place] 1.023 Urine Protein 2+ H Urine Glucose (UA) Negative Urine Ketones 3+ H Ur Blood (Man) 2+ H Urine Nitrate Negative Urine Bilirubin Negative Urine Urobilinogen 1.0 Add Ur Microanalysis Reviewed Leukocyte Esterase Rfl 2+ H Urine RBC 51-100 H Urine WBC 21-50 H Ur Squamous Epith Cells Moderate Urine Bacteria 2+ H Urine Casts 6-10 Urine Mucus Present 11/13/24 06:08 WBC 5.8 RBC 3.27 L Hgb 8.8 L D Hct 26.7 L MCV 81.7 MCH 26.9 MCHC 33.0 RDW 18.6 H Plt Count 340 MPV 10.8 H Immature Gran % (Auto) 0.7 H Neut % (Auto) 67.9 Lymph % (Auto) 12.5 L [place] % (Auto) 12.0 H Eos % (Auto) 6.2 H Baso % (Auto) 0.7 Lymph # (Auto) 0.73 L [place] # (Auto) 0.7 H Eos # (Auto) 0.4 H Baso # (Auto) 0.0 Abs Immat Gran (auto) 0.04 H Absolute Neuts (auto) 4.0 Absolute Nucleated RBC 0.000 Nucleated RBC % 0.0 Sodium 150 H Potassium 3.2 L Chloride 117 H Carbon Dioxide 25 Anion Gap 8 BUN 15 D Creatinine 0.48 L Estim Creat Clear Calc 73 Estimated GFR > 60 Glucose 105 Lactic Acid 1.0 Calcium 9.1 Magnesium 1.8 Total Bilirubin 0.5 AST 24 ALT 8 Alkaline Phosphatase 45 Total Protein 7.0 Albumin 2.8 L Urine Color Urine Appearance Urine pH Ur Specific [place] Urine Protein Urine Glucose (UA) Urine Ketones Ur Blood (Man) Urine Nitrate Urine Bilirubin Urine Urobilinogen Add Ur Microanalysis Leukocyte Esterase Rfl Urine RBC Urine WBC Ur Squamous Epith Cells Urine Bacteria Urine Casts Urine Mucus Quality VTE Prophylaxis VTE prophylaxis: pharmacologic ordered
--- NOTE | 2024-11-13 11:46 | PCPTNOTE ---
Pt dependent at baseline with pt's son assisting with all ADLs and carrying pt to transfer pt OOB. Hospitalist notified and agreed with discharge of therapy orders at this time.
[2024-11-13 13:49] VITALS: BP 127/71; PULSE 96; RESP 14; TEMP 36.5; O2SAT 98
[2024-11-13] MEDS: KCL 20 MEQ/SW 100 ML 100 ML 50 MEQ IVPB ×2 (14:45→16:29)
[2024-11-13 15:00] LABS: Anion Gap 6 mmol/L (4-12); Blood Urea Nitrogen 12 mg/dL (7-17); Calcium 9.3 mg/dL (8.4-10.2); Carbon Dioxide 30 mmol/L (22-30); Chloride 116 mmol/L (98-107); Estimated CRCL calculation 64 ml/min; Estimated Glomerular Filt Rate > 60; Glucose 142 mg/dL (65-110); Potassium 2.7 mmol/L (3.4-5.0); Sodium 152 mmol/L (137-145)
[2024-11-13 21:34] VITALS: O2SAT 98
[2024-11-13 21:36] VITALS: BP 114/73; PULSE 98; RESP 14; TEMP 36.4; O2SAT 98
[2024-11-14] MEDS: DEXTROSE 5%/LACTATED RINGERS 1,000 ML 100 ML IV CONT ×2 (05:52→16:26)
[2024-11-14 05:56] VITALS: BP 128/84; PULSE 93; RESP 16; TEMP 36.4; O2SAT 96
[2024-11-14 06:49] LABS: Hematocrit 27.1 % (37.0-47.0); Hemoglobin 8.9 g/dL (12.0-15.0); Mean Corpuscular HGB Conc 32.8 g/dl (32-36); Mean Corpuscular Hemoglobin 26.8 pg (26-34); Mean Corpuscular Volume 81.6 fl (80-100); Platelet Count Result 295 k/mm3 (150-375); Red Blood Count 3.32 M/mm3 (4.2-5.4); White Blood Count 6.2 K/mm3 (4.5-10.0)
[2024-11-14 07:09] LABS: Anion Gap 7 mmol/L (4-12); Blood Urea Nitrogen 9 mg/dL (7-17); Calcium 9.1 mg/dL (8.4-10.2); Carbon Dioxide 29 mmol/L (22-30); Chloride 116 mmol/L (98-107); Estimated CRCL calculation 66 ml/min; Estimated Glomerular Filt Rate > 60; Glucose 117 mg/dL (65-110); Potassium 2.9 mmol/L (3.4-5.0); Sodium 152 mmol/L (137-145)
[2024-11-14] MEDS: KCL 20 MEQ/SW 100 ML 100 ML 25 MEQ IVPB (09:06)
[2024-11-14] MEDS: ENOXAPARIN 40 MG/0.4 ML SYRINGE SUB-Q (09:07)
[2024-11-14] MEDS: VANCOMYCIN 1,000 MG/NS 250 ML 1,000 MG/250 ML BAG 175 MG IVPB (10:00)
[2024-11-14 10:26] VITALS: BMI 18.5
--- NOTE | 2024-11-14 12:30 | P.PNIM_ITS ---
Progress Note: A&P Assessment and Plan (1) UTI (urinary tract infection): Code(s): N39.0 - Urinary tract infection, site not specified Status: Acute Assessment and Plan: * As evidenced by urinalysis with 2+ leuk esterase, 21-50 wbc's and 2+ bacteria. * U/C positive for enterococcus. added vancomycin. follow final culture result. * Continue Rocephin 1 g Q 24 hours * Trend and monitor vital signs and daily labs (2) Dehydration: Code(s): E86.0 - Dehydration Status: Acute Assessment and Plan: * As evidenced by 3+ ketones in urine, hypernatremia of 156, hypokalemia of 3.1, BUN of 23 and chloride of 116. * Patient received 30 mL/kilos of LR in ER * Will continue maintenance fluids with D5 LR at 100 mL/hours as patient will be kept NPO for swallow eval and noted glucose on labs is 82. * Trended monitor labs * Accurate output measurement with Stone (3) Decubitus ulcer of sacral region, unstageable: Code(s): L89.150 - Pressure ulcer of sacral region, unstageable Status: Chronic Assessment and Plan: * Consult wound care, appreciate their recommendations * CT scan abdomen pelvis did not appreciate any osteomyelitis or abscess formation related to wound. * Consider surgery consult should wound start changing in appearance. (4) Electrolyte abnormality: Code(s): E87.8 - Other disorders of electrolyte and fluid balance, not elsewhere classified Status: Acute Assessment and Plan: * hypokalemia and hypernatremia on admission * Suspect due to dehydration secondary to anion gap lactic acidosis which is most likely due to starvation ketosis as patient also has 3+ ketones in her urine. * Patient has received 20 mEq of potassium chloride per IV * She has received 30 milliliters/kilogram of lactated Ringer's * We will continue to monitor and trend labs * Hydrate with D5 LR at 100 mL/hour for now. (5) Increased anion gap metabolic acidosis: Code(s): E87.29 - Other acidosis Status: Acute Assessment and Plan: * As evidenced by lactic acid of 2.7, 3+ ketonuria, and anion gap of 14 * Suspect starvation ketosis which likely led to patient's current dehydration and electrolyte abnormality * Correcting with IV fluids. * Repeat lactic acid is 1.4 after hydration * Continue to monitor and trend labs (6) Paroxysmal atrial fibrillation: Code(s): I48.0 - Paroxysmal atrial fibrillation Status: Chronic Assessment and Plan: * Chronic in nature * Not currently in AFib * Continue Eliquis (7) Hypertension: Qualifiers: Hypertension type: primary hypertension Qualified Code(s): I10 - Essential (primary) hypertension Code(s): I10 - Essential (primary) hypertension Status: Chronic Assessment and Plan: * Continue home medications once they have been verified and confirmed and patient is able to take oral medications * Monitor in the interim time and if needed substitute IV. 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 (9) Multiple sclerosis: Onset Date: 1997 Code(s): G35 - Multiple sclerosis Status: Chronic Assessment and Plan: * Advanced, suspect end-stage causing complete debility for patient. * Suspect pt is actually having Failure To Thrive at this stage in her MS. (10) Dysphagia: Qualifiers: Dysphagia type: unspecified Qualified Code(s): R13.10 - Dysphagia, unspecified Code(s): R13.10 - Dysphagia, unspecified Status: Acute Assessment and Plan: * Suspect acute on chronic. Patient's son states that he notices she has been pocketing foods in her mouth. They have also been having to spoon feed her her drinks with a thickened wall. Concern for high risk of aspiration. * Speech evaluation ordered for swallow eval * NPO for now with IV fluid hydration * Consider GI/surgery consult for potential feeding tube if needed Subjective Date/time seen: 11/14/24 12:30 Interval history: per HPI: This is a debilitated 64-year-old female patient with history of multiple sclerosis, paroxysmal atrial fibrillation on chronic Eliquis, DVT, hypertension, dysphagia and aspiration, ESTEFANÍA and sacral wound who is status post debridement couple of weeks ago and recently discharged here on October 29, 2024 who is brought back to the emergency room this evening for a wound check. Patient currently resides at home with her son who is her primary caregiver and power of sample preparation supervisor for medical purposes. Patient was originally discharged to [facility] and later left there as a discharge as she was running out of days that insurance would pay for in her son reportedly took her home. He has been having a wound nurse, physical therapy through [employer] coming into the home to help with assessment in caregiving. I discussed with the son the bedside a little bit more about patient's baseline and patient is usually alert and oriented to self only. She cannot answer where she is, why she is here or what date or time. She reportedly eats small moist softened foods in small amounts but her son notices that she has been pocketing foods. She has been having her drinks with a thick in her and she has been spoon fed her drinks, however he notes yesterday she did attempt to drink through a straw. He has been doing daily wound care at home cleaning the wound and applying silver gel. Patient is not a good historian and does not provide additional information to her current situation. In the emergency room a workup was performed and EKG shows sinus tachycardia 102 beats per minute and a left axis deviation, vital signs are unremarkable, CT of the head is negative for any acute intracranial findings, CT abdomen and pelvis showing sacral wound without any collection such as abscess. There is fat stranding present. No acute osteomyelitis or other acute intra-abdominal findings present. Labs were significant for electrolyte derangement of sodium of 156, potassium of 3.1, chloride of 116, BUN of 23, lactic acid of 2.7, anion gap of 14, urinalysis showing 3+ ketones, 2+ blood, 2+ leukocyte esterase, 21-50 wbc's, 2+ bacteria with moderate epithelial findings, however given patient's lactic acidosis with marginally elevated anion gap concern is for potential bacterial infection. Patient is therefore started on medications of Rocephin for UTI that will be continued, she received 30 mL/kilos of lactated Ringer's and she is given a 20 mEq K rider. She is being admitted in the setting of having suspected UTI, dehydration as evidenced by electrolyte derangements, chronic sacral wound an acute anion gap lactic acidosis. Physical exam by both this provider and emergency room provider is not concerning for acute infection of current chronic sacral wound. As discussed with ER physician, there are concerns by both of us that the patient's son, although doing what he can to care for his mom, may not be enough in her advanced MS stage. Plan is for care coordination to evaluate as well as PT and OT to make recommendations for discharge planning. 11/13/24 Patient was seen and examined at bedside. she is alert and oriented to her name. denies any chest pain, SOb,a bd pain, N/V. wound care team on board. continue IVF for dehydration and hypernatremia. Continue Abx for possible UTI sepsis. follow culture results. 11/14/24 Patient was seen and examined at bedside. she is feeling fine. denies chest pain, SOB, ABd pain. Na still 152. continue D5w. potassium 2.9. will give iv potassium. U/C positive for enterococcus. added vancomycin. follow final culture result. Review of Systems Review of Systems: All information received was from the son who is at the bedside. ROS unobtainable: Yes other (Unobtainable per patient.) Exam Const: General: comfortable and no acute distress Other: Thin, emaciated, appearing older than current age female patient lying supine on stretcher at this time in no acute distress. HENMT: Face/Nose/Sinus: Normal nares present Mouth: Yes dry mucous membranes Other: Flaky lips Eyes: General: appearance normal, both eyes and all related structures Neck: Neck: supple and no JVD Lymphatic: lymphadenopathy not noted Resp: Effort & Inspection: normal respiratory effort Auscultation: clear to auscultation bilaterally Cardio: Rate: regular rate Rhythm: regular rhythm Heart sounds: no gallops, Murmur heart sound present systolic holo (Grade 2) and no rubs GI: Inspection: non-distended Auscultation: normal bowel sounds Urinary Catheter: Urinary Catheter: patent and draining and urine clear Skin: General skin exam: normal color, No rashes and wounds noted Rashes: no rashes noted Wounds: wounds noted sacrum bed granulating well and beefy red, without odor and open; no drainage, not malodorous and without any surrounding erythema Neuro: Speech: normal speech (Patient does answer to name. Calls me by name in clear speech) Motor exam (neuro): Abnormal motor strength present (Generalized weakness, worse in legs) Sensory Exam: normal sensation Other: Alert and oriented to self only Extrem: General: normal to inspection, no edema and no pedal edema Psych: Affect: normal affect Other: Alert oriented to self only Objective Data Vital Signs Vital Signs: Vital Signs - 24 hr 11/13/24 13:49 11/13/24 20:00 11/13/24 21:34 Temperature 97.7 F Pulse Rate 96 Respiratory Rate 14 Blood Pressure 127/71 Pulse Oximetry 98 98 Oxygen Delivery Room Air Room Air 11/13/24 21:36 11/14/24 05:56 Temperature 97.6 F 97.6 F Pulse Rate 98 93 Respiratory Rate 14 16 Blood Pressure 114/73 128/84 Pulse Oximetry 98 96 Oxygen Delivery Intake/Output Intake/Output: Intake & Output 11/11/24 11/12/24 11/13/24 11/14/24 23:59 23:59 23:59 23:59 Intake Total 550 1000 1250 Output Total 700 50 Balance [phone] Meds/Results Medications: Active Medications Generic Name Dose Route Start Last Admin Trade Name Freq PRN Reason Stop Dose Admin Acetaminophen 650 mg 11/12/24 21:41 Acetaminophen 325 Mg Tablet PO Q4H PRN Mild Pain (1-3) or Fever Enoxaparin Sodium 40 mg 11/13/24 09:00 11/14/24 09:07 Enoxaparin 40 Mg/0.4 Ml Syringe SUB-Q 40 mg DAILY APRYL Administration Hydralazine HCl 10 mg 11/12/24 22:28 Hydralazine Hcl 20 Mg/Ml Vial IV PUSH Q8H PRN Blood Pressure - High Ceftriaxone Sodium 1 gm in 50 mls @ 100 mls/hr 11/13/24 22:00 11/13/24 21:00 Rocephin 1 Gm/Ns 50 Ml IVPB 100 mls/hr Q24H APRYL Administration Dextrose/Lactated Ringer's 1,000 mls @ 100 mls/hr 11/12/24 22:30 11/14/24 05:52 Dextrose 5%/Lactated Ringers IV CONT 100 mls/hr .Q10H APRYL Administration Vancomycin HCl 1,000 mg in 250 mls @ 250 mls/hr 11/14/24 09:00 11/14/24 11:26 Vancomycin 1,000 Mg/Ns 250 Ml IVPB Infused Q18H APRYL Infusion Ondansetron HCl 4 mg 11/12/24 21:41 Ondansetron Inj 4 Mg/2 Ml Vial IV PUSH Q4H PRN Nausea Radiology Results: ITS Impressions Head CT 11/12/24 20:46 IMPRESSION: No acute intracranial findings. Abdomen/Pelvis CT 11/12/24 21:13 IMPRESSION: 1. Wound is seen in the area of the sacrum with no definite collection. Surrounding fat stranding is seen. 2. No evidence of appendicitis, diverticulitis or intestinal obstruction. Labs Labs: Laboratory Results - last 24 hr 11/13/24 11/14/24 14:41 06:35 WBC 6.2 RBC 3.32 L Hgb 8.9 L Hct 27.1 L MCV 81.6 MCH 26.8 MCHC 32.8 RDW 18.3 H Plt Count 295 MPV 10.4 Sodium 152 H 152 H Potassium 2.7 L* 2.9 L Chloride 116 H 116 H Carbon Dioxide 30 29 Anion Gap 6 7 BUN 12 9 Creatinine 0.55 L 0.54 L Estim Creat Clear Calc 64 66 Estimated GFR > 60 > 60 Glucose 142 H 117 H Calcium 9.3 9.1 Quality VTE Prophylaxis VTE prophylaxis: pharmacologic ordered
--- NOTE | 2024-11-14 13:40 | PCSTNOTE ---
Please refer to the Bedside Swallow Evaluation in the EMR. Please note, silent aspiration cannot be ruled out at bedside.
[2024-11-14 14:00] VITALS: BP 135/67; PULSE 75; RESP 18; TEMP 36.2; O2SAT 100
[2024-11-14 15:40] LABS: Anion Gap 5 mmol/L (4-12); Blood Urea Nitrogen 6 mg/dL (7-17); Calcium 8.9 mg/dL (8.4-10.2); Carbon Dioxide 32 mmol/L (22-30); Chloride 110 mmol/L (98-107); Estimated CRCL calculation 79 ml/min; Estimated Glomerular Filt Rate > 60; Glucose 123 mg/dL (65-110); Potassium 3.1 mmol/L (3.4-5.0); Sodium 147 mmol/L (137-145)
[2024-11-14 20:08] VITALS: O2SAT 96
[2024-11-14 20:54] VITALS: BP 141/87; PULSE 97; RESP 14; TEMP 37; O2SAT 99
[2024-11-15] MEDS: VANCOMYCIN 1,000 MG/NS 250 ML 1,000 MG/250 ML BAG 175 MG IVPB (02:25)
[2024-11-15] MEDS: DEXTROSE 5%/LACTATED RINGERS 1,000 ML 100 ML IV CONT ×2 (02:32→18:27)
[2024-11-15 05:17] VITALS: BP 121/78; PULSE 81; RESP 14; TEMP 36.7; O2SAT 99
[2024-11-15 06:16] LABS: Hematocrit 29.6 % (37.0-47.0); Hemoglobin 9.6 g/dL (12.0-15.0); Mean Corpuscular HGB Conc 32.4 g/dl (32-36); Mean Corpuscular Hemoglobin 26.5 pg (26-34); Mean Corpuscular Volume 81.8 fl (80-100); Platelet Count Result 227 k/mm3 (150-375); Red Blood Count 3.62 M/mm3 (4.2-5.4); White Blood Count 6.0 K/mm3 (4.5-10.0)
[2024-11-15 06:27] LABS: Anion Gap 6 mmol/L (4-12); Blood Urea Nitrogen 3 mg/dL (7-17); Calcium 8.6 mg/dL (8.4-10.2); Carbon Dioxide 30 mmol/L (22-30); Chloride 103 mmol/L (98-107); Estimated CRCL calculation 98 ml/min; Estimated Glomerular Filt Rate > 60; Glucose 106 mg/dL (65-110); Potassium 2.8 mmol/L (3.4-5.0); Sodium 139 mmol/L (137-145)
[2024-11-15] MEDS: POTASSIUM CHLORIDE INJ 40 MEQ in SODIUM CHLORIDE 0.9% IV 500 ML 130 MEQ IVPB (06:44)
[2024-11-15] MEDS: ENOXAPARIN 40 MG/0.4 ML SYRINGE SUB-Q (09:50)
[2024-11-15 14:00] VITALS: BP 115/77; PULSE 80; RESP 18; TEMP 36.2; O2SAT 100
--- NOTE | 2024-11-15 14:34 | PCNFU ---
Nutrition Follow-Up Complete: Severe protein calorie malnutrition related to inadequate energy intake as evidenced by a -12% wt loss x 1 month and NFPE findings for severe subcutaneous fat loss (cheeks, bicep) and severe muscle wasting (adventism, clavicle, shoulder). Goal:Meet estimated needs pt not meeting goal, remains NPO Pt current nutrition is NPO. Nutrition recommendation: Advance diet to soft and thin liquids per speech recommendations Last recorded weight is 52 kg. Bowel Motility: +BM 11/13 Labs Reviewed: Hgb:9.6, HCT:29.6, K:2.8, Cr:0.38 Meds Noted: Lactated ringers, lovenox Skin: Stage IV to buttocks Additional Notes: Pt remains NPO at this time, speech did a bedside eval and recommended trying soft textures and thin liquids until MBS can be completed tomorrow, 11/16. Pt remains NPO x 4 days now. Monitor MBS, diet orders, plan of care, wt, labs. Follow up in 3 day.
--- NOTE | 2024-11-15 14:43 | P.PNIM_ITS ---
Progress Note: A&P Assessment and Plan (1) UTI (urinary tract infection): Code(s): N39.0 - Urinary tract infection, site not specified Status: Acute Assessment and Plan: * As evidenced by urinalysis with 2+ leuk esterase, 21-50 wbc's and 2+ bacteria. * U/C positive for enterococcus. added vancomycin. follow final culture result. * Continue Rocephin 1 g Q 24 hours * Trend and monitor vital signs and daily labs * -ampicillin started 11/15, ceftriaxone stopped based on c/s (2) Dehydration: Code(s): E86.0 - Dehydration Status: Acute Assessment and Plan: * As evidenced by 3+ ketones in urine, hypernatremia of 156, hypokalemia of 3.1, BUN of 23 and chloride of 116. * Patient received 30 mL/kilos of LR in ER * Will continue maintenance fluids with D5 LR at 100 mL/hours as patient will be kept NPO for swallow eval and noted glucose on labs is 82. * Trended monitor labs * Accurate output measurement with Stone (3) Decubitus ulcer of sacral region, unstageable: Code(s): L89.150 - Pressure ulcer of sacral region, unstageable Status: Chronic Assessment and Plan: * Consult wound care, appreciate their recommendations * CT scan abdomen pelvis did not appreciate any osteomyelitis or abscess formation related to wound. * Consider surgery consult should wound start changing in appearance. (4) Electrolyte abnormality: Code(s): E87.8 - Other disorders of electrolyte and fluid balance, not elsewhere classified Status: Acute Assessment and Plan: * hypokalemia and hypernatremia on admission * Suspect due to dehydration secondary to anion gap lactic acidosis which is most likely due to starvation ketosis as patient also has 3+ ketones in her urine. * Patient has received 20 mEq of potassium chloride per IV * She has received 30 milliliters/kilogram of lactated Ringer's * We will continue to monitor and trend labs * Hydrate with D5 LR at 100 mL/hour for now. (5) Increased anion gap metabolic acidosis: Code(s): E87.29 - Other acidosis Status: Acute Assessment and Plan: * As evidenced by lactic acid of 2.7, 3+ ketonuria, and anion gap of 14 * Suspect starvation ketosis which likely led to patient's current dehydration and electrolyte abnormality * Correcting with IV fluids. * Repeat lactic acid is 1.4 after hydration * Continue to monitor and trend labs (6) Paroxysmal atrial fibrillation: Code(s): I48.0 - Paroxysmal atrial fibrillation Status: Chronic Assessment and Plan: * Chronic in nature * Not currently in AFib * on Eliquis but NPO now-continue lovenox (7) Hypertension: Qualifiers: Hypertension type: primary hypertension Qualified Code(s): I10 - Essential (primary) hypertension Code(s): I10 - Essential (primary) hypertension Status: Chronic Assessment and Plan: * Continue home medications once they have been verified and confirmed and patient is able to take oral medications * Monitor in the interim time and if needed substitute IV. 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 (9) Multiple sclerosis: Onset Date: 1997 Code(s): G35 - Multiple sclerosis Status: Chronic Assessment and Plan: * Advanced, suspect end-stage causing complete debility for patient. * Suspect pt is actually having Failure To Thrive at this stage in her MS. (10) Dysphagia: Qualifiers: Dysphagia type: unspecified Qualified Code(s): R13.10 - Dysphagia, unspecified Code(s): R13.10 - Dysphagia, unspecified Status: Acute Assessment and Plan: * Suspect acute on chronic. Patient's son states that he notices she has been pocketing foods in her mouth. They have also been having to spoon feed her her drinks with a thickened wall. Concern for high risk of aspiration. * Speech evaluation ordered for swallow eval * NPO for now with IV fluid hydration * Consider GI/surgery consult for potential feeding tube if needed Time Spent With Patient Time with patient: 25 - 35 minutes Subjective Date/time seen: 11/15/24 14:43 Interval history: per HPI: This is a debilitated 64-year-old female patient with history of multiple sclerosis, paroxysmal atrial fibrillation on chronic Eliquis, DVT, hypertension, dysphagia and aspiration, ESTEFANÍA and sacral wound who is status post debridement couple of weeks ago and recently discharged here on October 29, 2024 who is brought back to the emergency room this evening for a wound check. Patient currently resides at home with her son who is her primary caregiver and power of ip attorney for medical purposes. Patient was originally discharged to [facility] and later left there as a discharge as she was running out of days that insurance would pay for in her son reportedly took her home. He has been having a wound nurse, physical therapy through [facility] coming into the home to help with assessment in caregiving. I discussed with the son the bedside a little bit more about patient's baseline and patient is usually alert and oriented to self only. She cannot answer where she is, why she is here or what date or time. She reportedly eats small moist softened foods in small amounts but her son notices that she has been pocketing foods. She has been having her drinks with a thick in her and she has been spoon fed her drinks, however he notes yesterday she did attempt to drink through a straw. He has been doing daily wound care at home cleaning the wound and applying silver gel. Patient is not a good historian and does not provide additional information to her current situation. In the emergency room a workup was performed and EKG shows sinus tachycardia 102 beats per minute and a left axis deviation, vital signs are unremarkable, CT of the head is negative for any acute intracranial findings, CT abdomen and pelvis showing sacral wound without any collection such as abscess. There is fat stranding present. No acute osteomyelitis or other acute intra-abdominal findings present. Labs were significant for electrolyte derangement of sodium of 156, potassium of 3.1, chloride of 116, BUN of 23, lactic acid of 2.7, anion gap of 14, urinalysis showing 3+ ketones, 2+ blood, 2+ leukocyte esterase, 21-50 wbc's, 2+ bacteria with moderate epithelial findings, however given patient's lactic acidosis with marginally elevated anion gap concern is for potential bacterial infection. Patient is therefore started on medications of Rocephin for UTI that will be continued, she received 30 mL/kilos of lactated Ringer's and she is given a 20 mEq K rider. She is being admitted in the setting of having suspected UTI, dehydration as evidenced by electrolyte derangements, chronic sacral wound an acute anion gap lactic acidosis. Physical exam by both this provider and emergency room provider is not concerning for acute infection of current chronic sacral wound. As discussed with ER physician, there are concerns by both of us that the patient's son, although doing what he can to care for his mom, may not be enough in her advanced MS stage. Plan is for care coordination to evaluate as well as PT and OT to make recommendations for discharge planning. 11/13/24 Patient was seen and examined at bedside. she is alert and oriented to her name. denies any chest pain, SOb,a bd pain, N/V. wound care team on board. continue IVF for dehydration and hypernatremia. Continue Abx for possible UTI sepsis. follow culture results. 11/14/24 Patient was seen and examined at bedside. she is feeling fine. denies chest pain, SOB, ABd pain. Na still 152. continue D5w. potassium 2.9. will give iv potassium. U/C positive for enterococcus. added vancomycin. follow final culture result. na 11/15 pt is seen and examined. s he is resting in bed with eyes closed. appears in no distress. k was low this morning replaced. MBS today. Review of Systems Review of Systems: All information received was from the son who is at the bedside. ROS unobtainable: Yes other (Unobtainable per patient.) Exam Const: General: comfortable and no acute distress Other: Thin, emaciated, appearing older than current age female patient lying supine on stretcher at this time in no acute distress. HENMT: Face/Nose/Sinus: Normal nares present Mouth: Yes dry mucous membranes Other: Flaky lips Eyes: General: appearance normal, both eyes and all related structures Neck: Neck: supple and no JVD Lymphatic: lymphadenopathy not noted Resp: Effort & Inspection: normal respiratory effort Auscultation: clear to auscultation bilaterally Cardio: Rate: regular rate Rhythm: regular rhythm Heart sounds: no gallops, Murmur heart sound present systolic holo (Grade 2) and no rubs GI: Inspection: non-distended Auscultation: normal bowel sounds Urinary Catheter: Urinary Catheter: patent and draining and urine clear Skin: General skin exam: normal color, No rashes and wounds noted Rashes: no rashes noted Wounds: wounds noted sacrum bed granulating well and beefy red, without odor and open; no drainage, not malodorous and without any surrounding erythema Neuro: Speech: normal speech (Patient does answer to name. Calls me by name in clear speech) Motor exam (neuro): Abnormal motor strength present (Gene ralized weakness, worse in legs) Sensory Exam: normal sensation Other: Alert and oriented to self only Extrem: General: normal to inspection, no edema and no pedal edema Psych: Affect: normal affect Other: Alert oriented to self only Objective Data Vital Signs Vital Signs: Vital Signs - 24 hr 11/14/24 20:08 11/14/24 20:54 11/14/24 21:37 Temperature 98.6 F Pulse Rate 97 Respiratory Rate 14 Blood Pressure 141/87 H Pulse Oximetry 96 99 Oxygen Delivery Room Air Room Air 11/15/24 05:17 Temperature 98.0 F Pulse Rate 81 Respiratory Rate 14 Blood Pressure 121/78 Pulse Oximetry 99 Oxygen Delivery Intake/Output Intake/Output: Intake & Output 11/12/24 11/13/24 11/14/24 11/15/24 23:59 23:59 23:59 23:59 Intake Total 550 1050 2400 1250 Output Total 700 1250 1350 Balance 908 982 4018 -100 Meds/Results Medications: Active Medications Generic Name Dose Route Start Last Admin Trade Name Freq PRN Reason Stop Dose Admin Acetaminophen 650 mg 11/12/24 21:41 Acetaminophen 325 Mg Tablet PO Q4H PRN Mild Pain (1-3) or Fever Enoxaparin Sodium 40 mg 11/13/24 09:00 11/15/24 09:50 Enoxaparin 40 Mg/0.4 Ml Syringe SUB-Q 40 mg DAILY APRYL Administration Hydralazine HCl 10 mg 11/12/24 22:28 Hydralazine Hcl 20 Mg/Ml Vial IV PUSH Q8H PRN Blood Pressure - High Dextrose/Lactated Ringer's 1,000 mls @ 100 mls/hr 11/12/24 22:30 11/15/24 02:32 Dextrose 5%/Lactated Ringers IV CONT 100 mls/hr .Q10H APRYL Administration Ampicillin Sodium 2 gm in 100 mls @ 200 mls/hr 11/15/24 18:00 Ampicillin 2 Gm/Ns 100 Ml IVPB 11/20/24 18:29 Q6HR APRYL Ondansetron HCl 4 mg 11/12/24 21:41 Ondansetron Inj 4 Mg/2 Ml Vial IV PUSH Q4H PRN Nausea Radiology Results: ITS Impressions Head CT 11/12/24 20:46 IMPRESSION: No acute intracranial findings. Abdomen/Pelvis CT 11/12/24 21:13 IMPRESSION: 1. Wound is seen in the area of the sacrum with no definite collection. Surrounding fat stranding is seen. 2. No evidence of appendicitis, diverticulitis or intestinal obstruction. Labs Labs: Laboratory Results - last 24 hr 11/14/24 11/15/24 15:18 05:51 WBC 6.0 RBC 3.62 L Hgb 9.6 L Hct 29.6 L MCV 81.8 MCH 26.5 MCHC 32.4 RDW 18.1 H Plt Count 227 MPV 11.0 H Sodium 147 H 139 Potassium 3.1 L 2.8 L* Chloride 110 H 103 Carbon Dioxide 32 H 30 Anion Gap 5 6 BUN 6 L 3 L Creatinine 0.44 L 0.38 L Estim Creat Clear Calc 79 98 Estimated GFR > 60 > 60 Glucose 123 H 106 Calcium 8.9 8.6 Quality VTE Prophylaxis VTE prophylaxis: pharmacologic ordered
[2024-11-15] MEDS: AMPICILLIN 2 GM/NS 100 ML 2 GM/100 ML BAG IVPB (20:35)
[2024-11-15 21:37] VITALS: BP 119/71; PULSE 79; RESP 18; TEMP 36.6; O2SAT 100
[2024-11-15 22:44] VITALS: O2SAT 100
[2024-11-16] VITALS (8 sets, daily range): BP systolic 116–145; BP diastolic 74–92; PULSE 82–97; RESP 18; TEMP 36.2–36.6; O2SAT 97–100
[2024-11-16] MEDS: AMPICILLIN 2 GM/NS 100 ML 2 GM/100 ML BAG IVPB ×4 (01:24→22:20)
[2024-11-16] MEDS: DEXTROSE 5%/LACTATED RINGERS 1,000 ML 100 ML IV CONT (05:12)
[2024-11-16 06:48] LABS: Hematocrit 28.1 % (37.0-47.0); Hemoglobin 9.4 g/dL (12.0-15.0); Mean Corpuscular HGB Conc 33.5 g/dl (32-36); Mean Corpuscular Hemoglobin 26.7 pg (26-34); Mean Corpuscular Volume 79.8 fl (80-100); Platelet Count Result 285 k/mm3 (150-375); Red Blood Count 3.52 M/mm3 (4.2-5.4); White Blood Count 4.9 K/mm3 (4.5-10.0)
[2024-11-16 06:49] LABS: Anion Gap 6 mmol/L (4-12); Calcium 8.3 mg/dL (8.4-10.2); Carbon Dioxide 33 mmol/L (22-30); Chloride 101 mmol/L (98-107); Estimated CRCL calculation 78 ml/min; Estimated Glomerular Filt Rate > 60; Glucose 94 mg/dL (65-110); Potassium 2.5 mmol/L (3.4-5.0); Sodium 140 mmol/L (137-145)
[2024-11-16 07:06] LABS: Blood Urea Nitrogen < 2 mg/dL (7-17)
[2024-11-16] MEDS: MAGNESIUM SULF 1 GM/D5W 100 ML 1 GM/100 ML BAG IVPB (08:19)
[2024-11-16] MEDS: ENOXAPARIN 40 MG/0.4 ML SYRINGE SUB-Q (09:59)
[2024-11-16] MEDS: POTASSIUM CHLORIDE INJ 40 MEQ in SODIUM CHLORIDE 0.9% IV 500 ML 130 MEQ IVPB ×2 (10:45→18:14)
--- NOTE | 2024-11-16 11:08 | P.PNIM_ITS ---
Progress Note: A&P Assessment and Plan (1) UTI (urinary tract infection): Code(s): N39.0 - Urinary tract infection, site not specified Status: Acute Assessment and Plan: * As evidenced by urinalysis with 2+ leuk esterase, 21-50 wbc's and 2+ bacteria. * U/C positive for enterococcus. added vancomycin. follow final culture result. * Continue Rocephin 1 g Q 24 hours * Trend and monitor vital signs and daily labs * -ampicillin started 11/15, ceftriaxone stopped based on c/s * continue regimen (2) Dehydration: Code(s): E86.0 - Dehydration Status: Acute Assessment and Plan: * As evidenced by 3+ ketones in urine, hypernatremia of 156, hypokalemia of 3.1, BUN of 23 and chloride of 116. * Patient received 30 mL/kilos of LR in ER * Will continue maintenance fluids with D5 LR at 100 mL/hours as patient will be kept NPO for swallow eval and noted glucose on labs is 82. * Trended monitor labs * Accurate output measurement with Stone * started on PPN IV (3) Decubitus ulcer of sacral region, unstageable: Code(s): L89.150 - Pressure ulcer of sacral region, unstageable Status: Chronic Assessment and Plan: * Consult wound care, appreciate their recommendations * CT scan abdomen pelvis did not appreciate any osteomyelitis or abscess formation related to wound. * Consider surgery consult should wound start changing in appearance. * added pain mgmt prn as pt is in a lot of pain and discomfort with dressing changes (4) Electrolyte abnormality: Code(s): E87.8 - Other disorders of electrolyte and fluid balance, not elsewhere classified Status: Acute Assessment and Plan: * hypokalemia and hypernatremia on admission * Suspect due to dehydration secondary to anion gap lactic acidosis which is most likely due to starvation ketosis as patient also has 3+ ketones in her urine. * Patient has received 20 mEq of potassium chloride per IV * She has received 30 milliliters/kilogram of lactated Ringer's * We will continue to monitor and trend labs * Hydrate with D5 LR at 100 mL/h * * stop D5LP and started PPN IV * replaced K 40 meq x 2 doses and repeat K after IV is done as low in am again * replace Mg, repeat lab ;later with K * tele monitor * PPN should help with improvement of electrolytes (5) Increased anion gap metabolic acidosis: Code(s): E87.29 - Other acidosis Status: Acute Assessment and Plan: * As evidenced by lactic acid of 2.7, 3+ ketonuria, and anion gap of 14 * Suspect starvation ketosis which likely led to patient's current dehydration and electrolyte abnormality * Correcting with IV fluids. * Repeat lactic acid is 1.4 after hydration * Continue to monitor and trend labs * = * gap is 6 * (6) Paroxysmal atrial fibrillation: Code(s): I48.0 - Paroxysmal atrial fibrillation Status: Chronic Assessment and Plan: * Chronic in nature * Not currently in AFib * on Eliquis but NPO now-continue lovenox (7) Hypertension: Qualifiers: Hypertension type: primary hypertension Qualified Code(s): I10 - Essential (primary) hypertension Code(s): I10 - Essential (primary) hypertension Status: Chronic Assessment and Plan: * Continue home medications once they have been verified and confirmed and patient is able to take oral medications * Monitor in the interim time and if needed substitute IV. (8) Anticoagulated by anticoagulation treatment: Code(s): Z79.01 - [facility] (current) use of anticoagulants Status: Chronic Assessment and Plan: * Continue Eliquis once patient is able to tolerate oral medications and they have been verified and confirmed * In the interim time will utilize Lovenox. (9) Multiple sclerosis: Onset Date: 1997 Code(s): G35 - Multiple sclerosis Status: Chronic Assessment and Plan: * Advanced, suspect end-stage causing complete debility for patient. * Suspect pt is actually having Failure To Thrive at this stage in her MS. (10) Dysphagia: Qualifiers: Dysphagia type: unspecified Qualified Code(s): R13.10 - Dysphagia, unspecified Code(s): R13.10 - Dysphagia, unspecified Status: Acute Assessment and Plan: * Suspect acute on chronic. Patient's son states that he notices she has been pocketing foods in her mouth. They have also been having to spoon feed her her drinks with a thickened wall. Concern for high risk of aspiration. * Speech evaluation ordered for swallow eval * NPO for now with IV fluid hydration * Consider GI/surgery consult for potential feeding tube if needed Time Spent With Patient Time with patient: Greater than 35 minutes Subjective Date/time seen: 11/16/24 11:08 Interval history: per HPI: This is a debilitated 64-year-old female patient with history of multiple sclerosis, paroxysmal atrial fibrillation on chronic Eliquis, DVT, hypertension, dysphagia and aspiration, ESTEFANÍA and sacral wound who is status post debridement couple of weeks ago and recently discharged here on October 29, 2024 who is brought back to the emergency room this evening for a wound check. Patient currently resides at home with her son who is her primary caregiver and power of corporate attorney for medical purposes. Patient was originally discharged to [facility] and later left there as a discharge as she was running out of days that insurance would pay for in her son reportedly took her home. He has been having a wound nurse, physical therapy through [facility] coming into the home to help with assessment in caregiving. I discussed with the son the bedside a little bit more about patient's baseline and patient is usually alert and oriented to self only. She cannot answer where she is, why she is here or what date or time. She reportedly eats small moist softened foods in small amounts but her son notices that she has been pocketing foods. She has been having her drinks with a thick in her and she has been spoon fed her drinks, however he notes yesterday she did attempt to drink through a straw. He has been doing daily wound care at home cleaning the wound and applying silver gel. Patient is not a good historian and does not provide additional information to her current situation. In the emergency room a workup was performed and EKG shows sinus tachycardia 102 beats per minute and a left axis deviation, vital signs are unremarkable, CT of the head is negative for any acute intracranial findings, CT abdomen and pelvis showing sacral wound without any collection such as abscess. There is fat stranding present. No acute osteomyelitis or other acute intra-abdominal findings present. Labs were significant for electrolyte derangement of sodium of 156, potassium of 3.1, chloride of 116, BUN of 23, lactic acid of 2.7, anion gap of 14, urinalysis showing 3+ ketones, 2+ blood, 2+ leukocyte esterase, 21-50 wbc's, 2+ bacteria with moderate epithelial findings, however given patient's lactic acidosis with marginally elevated anion gap concern is for potential bacterial infection. Patient is therefore started on medications of Rocephin for UTI that will be continued, she received 30 mL/kilos of lactated Ringer's and she is given a 20 mEq K rider. She is being admitted in the setting of having suspected UTI, dehydration as evidenced by electrolyte derangements, chronic sacral wound an acute anion gap lactic acidosis. Physical exam by both this provider and emergency room provider is not concerning for acute infection of current chronic sacral wound. As discussed with ER physician, there are concerns by both of us that the patient's son, although doing what he can to care for his mom, may not be enough in her advanced MS stage. Plan is for care coordination to evaluate as well as PT and OT to make recommendations for discharge planning. 11/13/24 Patient was seen and examined at bedside. she is alert and oriented to her name. denies any chest pain, SOb,a bd pain, N/V. wound care team on board. continue IVF for dehydration and hypernatremia. Continue Abx for possible UTI sepsis. follow culture results. 11/14/24 Patient was seen and examined at bedside. she is feeling fine. denies chest pain, SOB, ABd pain. Na still 152. continue D5w. potassium 2.9. will give iv potassium. U/C positive for enterococcus. added vancomycin. follow final culture result. na 11/15 pt is seen and examined. s he is resting in bed with eyes closed. appears in no distress. k was low this morning replaced. MBS today. 11/16 unable to do MBS until Monday. Will order PPN IV as pt is not eating or drinking. Tried to call call to discuss plan of care, no answer. Pt appears com fortable when examined. Review of Systems Review of Systems: All systems reviewed & are unremarkable except as noted in HPI and below ROS unobtainable: Yes other (Unobtainable per patient.) Exam Const: General: comfortable and no acute distress Other: Thin, emaciated, appearing older than current age female patient lying supine on stretcher at this time in no acute distress. HENMT: Face/Nose/Sinus: Normal nares present Mouth: Yes dry mucous membranes Other: Flaky lips Eyes: General: appearance normal, both eyes and all related structures Neck: Neck: supple and no JVD Lymphatic: lymphadenopathy not noted Resp: Effort & Inspection: normal respiratory effort Auscultation: clear to auscultation bilaterally Cardio: Rate: regular rate Rhythm: regular rhythm Heart sounds: no gallops, Murmur heart sound present systolic holo (Grade 2) and no rubs GI: Inspection: non-distended Auscultation: normal bowel sounds Urinary Catheter: Urinary Catheter: patent and draining and urine clear Skin: General skin exam: normal color, No rashes and wounds noted Rashes: no rashes noted Wounds: wounds noted sacrum bed granulating well and beefy red, without odor and open; no drainage, not malodorous and without any surrounding erythema Neuro: Speech: normal speech (Patient does answer to name. Calls me by name in clear speech) Motor exam (neuro): Abnormal motor strength present (Generalized weakness, worse in legs) Sensory Exam: normal sensation Other: Alert and oriented to self only Extrem: General: normal to inspection, no edema and no pedal edema Psych: Affect: normal affect Other: Alert oriented to self only Objective Data Vital Signs Vital Signs: Vital Signs - 24 hr 11/15/24 14:00 11/15/24 20:35 11/15/24 21:37 Temperature 97.1 F L 97.8 F Pulse Rate 80 79 Respiratory Rate 18 18 Blood Pressure 115/77 119/71 Pulse Oximetry 100 100 Oxygen Delivery Room Air Fraction of Inspired Oxygen 11/15/24 22:44 11/16/24 06:00 Temperature 97.3 F L Pulse Rate 84 Respiratory Rate 18 Blood Pressure 116/74 Pulse Oximetry 100 100 Oxygen Delivery Room Air Fraction of Inspired Oxygen 21 Intake/Output Intake/Output: Intake & Output 11/13/24 11/14/24 11/15/24 11/16/24 23:59 23:59 23:59 23:59 Intake Total 1050 2400 2350 1200 Output Total 700 1250 3000 1955 Balance 350 5869 -115 -895 Meds/Results Medications: Active Medications Generic Name Dose Route Start Last Admin Trade Name Freq PRN Reason Stop Dose Admin Acetaminophen 650 mg 11/12/24 21:41 Acetaminophen 325 Mg Tablet PO Q4H PRN Mild Pain (1-3) or Fever Enoxaparin Sodium 40 mg 11/13/24 09:00 11/16/24 09:59 Enoxaparin 40 Mg/0.4 Ml Syringe SUB-Q 40 mg DAILY APRYL Administration Hydralazine HCl 10 mg 11/12/24 22:28 Hydralazine Hcl 20 Mg/Ml Vial IV PUSH Q8H PRN Blood Pressure - High Hydromorphone HCl 0.25 mg 11/15/24 14:45 Hydromorphone Hcl Inj (*Crx) 2 Mg/Ml Vial IV PUSH Q3H PRN Pain Rated 7-10 Dextrose/Lactated Ringer's 1,000 mls @ 100 mls/hr 11/12/24 22:30 11/16/24 05:12 Dextrose 5%/Lactated Ringers IV CONT 100 mls/hr .Q10H APRYL Administration Ampicillin Sodium 2 gm in 100 mls @ 200 mls/hr 11/15/24 18:00 11/16/24 05:46 Ampicillin 2 Gm/Ns 100 Ml IVPB 11/20/24 18:29 Infused Q6HR APRYL Infusion Dextrose 1,000 mls @ 50 mls/hr 11/16/24 11:06 Dextrose 10% IV CONT .Q20H PRN if PN is interrupted Amino Acids/Electrolytes/Dextrose 1,000 mls @ 80 mls/hr 11/16/24 11:10 Clinimix E 4.25%/5% Solution IV CONT .[id number] [facility] Protocol Fat Emulsion Intravenous 250 mls @ 20.833 mls/hr 11/16/24 11:10 Lipids 20% IVPB Q24H APRYL Insulin Human Regular 0 units 11/16/24 12:00 Insulin Human Regular (*Bkc) 100 Units/Ml SUB-Q Q6HR [facility] Protocol Ondansetron HCl 4 mg 11/12/24 21:41 Ondansetron Inj 4 Mg/2 Ml Vial IV PUSH Q4H PRN Nausea Radiology Results: ITS Impressions Head CT 11/12/24 20:46 IMPRESSION: No acute intracranial findings. Abdomen/Pelvis CT 11/12/24 21:13 IMPRESSION: 1. Wound is seen in the area of the sacrum with no definite collection. Surrounding fat stranding is seen. 2. No evidence of appendicitis, diverticulitis or intestinal obstruction. Labs Labs: Laboratory Results - last 24 hr 11/16/24 11/16/24 11/16/24 00:07 05:35 06:42 WBC 4.9 RBC 3.52 L Hgb 9.4 L Hct 28.1 L MCV 79.8 L MCH 26.7 MCHC 33.5 RDW 18.2 H Plt Count 285 MPV 11.2 H Sodium 140 Potassium 2.5 L* Chloride 101 Carbon Dioxide 33 H Anion Gap 6 BUN < 2 L Creatinine 0.48 L Estim Creat Clear Calc 78 Estimated GFR > 60 Glucose 94 POC Capillary Glucose 90 81 Calcium 8.3 L Quality VTE Prophylaxis VTE prophylaxis: pharmacologic ordered
--- NOTE | 2024-11-16 11:19 | PCSTNOTE ---
Cannot complete MBS today due to no on-site radiologist. Cannot recommend oral feedings/treatment. Awaiting MBS Monday before any additional recommendations can be made.
[2024-11-16] MEDS: FAT EMULSIONS IV 20% 250 ML 20.83 ML IVPB (12:14)
[2024-11-16] MEDS: AMINO ACIDS 4.25%/D5W/LYTES/CA 1,000 ML 80 ML IV CONT (12:15)
[2024-11-17] VITALS (10 sets, daily range): BP systolic 132–146; BP diastolic 78–88; PULSE 83–97; RESP 18–20; TEMP 36.1–36.6; O2SAT 98–100
[2024-11-17] MEDS: AMINO ACIDS 4.25%/D5W/LYTES/CA 1,000 ML 80 ML IV CONT ×2 (00:57→13:32)
[2024-11-17] MEDS: AMPICILLIN 2 GM/NS 100 ML 2 GM/100 ML BAG IVPB ×3 (02:50→19:02)
[2024-11-17 06:38] LABS: Anion Gap 8 mmol/L (4-12); Blood Urea Nitrogen 13 mg/dL (7-17); Calcium 8.3 mg/dL (8.4-10.2); Carbon Dioxide 27 mmol/L (22-30); Chloride 103 mmol/L (98-107); Estimated CRCL calculation 76 ml/min; Estimated Glomerular Filt Rate > 60; Glucose 105 mg/dL (65-110); Potassium 3.3 mmol/L (3.4-5.0); Sodium 138 mmol/L (137-145); Triglycerides 107 mg/dL (<150)
[2024-11-17] MEDS: ENOXAPARIN 40 MG/0.4 ML SYRINGE SUB-Q (10:10)
--- NOTE | 2024-11-17 12:00 | P.PNIM_ITS ---
Progress Note: A&P Assessment and Plan (1) UTI (urinary tract infection): Code(s): N39.0 - Urinary tract infection, site not specified Status: Acute Assessment and Plan: * As evidenced by urinalysis with 2+ leuk esterase, 21-50 wbc's and 2+ bacteria. * U/C positive for enterococcus. added vancomycin. follow final culture result. * Continue Rocephin 1 g Q 24 hours * Trend and monitor vital signs and daily labs * -ampicillin started 11/15, ceftriaxone stopped based on c/s * continue regimen (2) Dehydration: Code(s): E86.0 - Dehydration Status: Acute Assessment and Plan: * As evidenced by 3+ ketones in urine, hypernatremia of 156, hypokalemia of 3.1, BUN of 23 and chloride of 116. * Patient received 30 mL/kilos of LR in ER * Will continue maintenance fluids with D5 LR at 100 mL/hours as patient will be kept NPO for swallow eval and noted glucose on labs is 82. * Trended monitor labs * Accurate output measurement with Stone * started on PPN IV (3) Decubitus ulcer of sacral region, unstageable: Code(s): L89.150 - Pressure ulcer of sacral region, unstageable Status: Chronic Assessment and Plan: * Consult wound care, appreciate their recommendations * CT scan abdomen pelvis did not appreciate any osteomyelitis or abscess formation related to wound. * Consider surgery consult should wound start changing in appearance. * added pain mgmt prn as pt is in a lot of pain and discomfort with dressing changes (4) Electrolyte abnormality: Code(s): E87.8 - Other disorders of electrolyte and fluid balance, not elsewhere classified Status: Acute Assessment and Plan: * hypokalemia and hypernatremia on admission * Suspect due to dehydration secondary to anion gap lactic acidosis which is most likely due to starvation ketosis as patient also has 3+ ketones in her urine. * Patient has received 20 mEq of potassium chloride per IV * She has received 30 milliliters/kilogram of lactated Ringer's * We will continue to monitor and trend labs * Hydrate with D5 LR at 100 mL/h * * stop D5LP and started PPN IV * replaced K 40 meq x 2 doses and repeat K after IV is done as low in am again * replace Mg, repeat lab ;later with K * tele monitor * PPN should help with improvement of electrolytes 7/6- 3.3 today. will order 40 meq IV x 1 (5) Increased anion gap metabolic acidosis: Code(s): E87.29 - Other acidosis Status: Acute Assessment and Plan: * As evidenced by lactic acid of 2.7, 3+ ketonuria, and anion gap of 14 * Suspect starvation ketosis which likely led to patient's current dehydration and electrolyte abnormality * Correcting with IV fluids. * Repeat lactic acid is 1.4 after hydration * Continue to monitor and trend labs * = * gap is 6 * (6) Paroxysmal atrial fibrillation: Code(s): I48.0 - Paroxysmal atrial fibrillation Status: Chronic Assessment and Plan: * Chronic in nature * Not currently in AFib * on Eliquis but NPO now-continue lovenox (7) Hypertension: Qualifiers: Hypertension type: primary hypertension Qualified Code(s): I10 - Essential (primary) hypertension Code(s): I10 - Essential (primary) hypertension Status: Chronic Assessment and Plan: * Continue home medications once they have been verified and confirmed and patient is able to take oral medications * Monitor in the interim time and if needed substitute IV. (8) Anticoagulated by anticoagulation treatment: Code(s): Z79.01 - roasterman (current) use of anticoagulants Status: Chronic Assessment and Plan: * Continue Eliquis once patient is able to tolerate oral medications and they have been verified and confirmed * In the interim time will utilize Lovenox. (9) Multiple sclerosis: Onset Date: 1997 Code(s): G35 - Multiple sclerosis Status: Chronic Assessment and Plan: * Advanced, suspect end-stage causing complete debility for patient. * Suspect pt is actually having Failure To Thrive at this stage in her MS. (10) Dysphagia: Qualifiers: Dysphagia type: unspecified Qualified Code(s): R13.10 - Dysphagia, unspecified Code(s): R13.10 - Dysphagia, unspecified Status: Acute Assessment and Plan: * Suspect acute on chronic. Patient's son states that he notices she has been pocketing foods in her mouth. They have also been having to spoon feed her her drinks with a thickened wall. Concern for high risk of aspiration. * Speech evaluation ordered for swallow eval * NPO for now with IV fluid hydration * Consider GI/surgery consult for potential feeding tube if needed Time Spent With Patient Time with patient: 25 - 35 minutes Subjective Date/time seen: 11/17/24 12:00 Interval history: per HPI: This is a debilitated 64-year-old female patient with history of multiple sclerosis, paroxysmal atrial fibrillation on chronic Eliquis, DVT, hypertension, dysphagia and aspiration, ESTEFANÍA and sacral wound who is status post debridement couple of weeks ago and recently discharged here on October 29, 2024 who is brought back to the emergency room this evening for a wound check. Patient currently resides at home with her son who is her primary caregiver and power of traffic law attorney for medical purposes. Patient was originally discharged to [facility] and later left there as a discharge as she was running out of days that insurance would pay for in her son reportedly took her home. He has been having a wound nurse, physical therapy through [employer] [employer] coming into the home to help with assessment in caregiving. I discussed with the son the bedside a little bit more about patient's baseline and patient is usually alert and oriented to self only. She cannot answer where she is, why she is here or what date or time. She reportedly eats small moist softened foods in small amounts but her son notices that she has been pocketing foods. She has been having her drinks with a thick in her and she has been spoon fed her drinks, however he notes yesterday she did attempt to drink through a straw. He has been doing daily wound care at home cleaning the wound and applying silver gel. Patient is not a good historian and does not provide additional information to her current sit uation. In the emergency room a workup was performed and EKG shows sinus tachycardia 102 beats per minute and a left axis deviation, vital signs are unremarkable, CT of the head is negative for any acute intracranial findings, CT abdomen and pelvis showing sacral wound without any collection such as abscess. There is fat stranding present. No acute osteomyelitis or other acute intra-abdominal f indings present. Labs were significant for electrolyte derangement of sodium of 156, potassium of 3.1, chloride of 116, BUN of 23, lactic acid of 2.7, anion gap of 14, urinalysis showing 3+ ketones, 2+ blood, 2+ leukocyte esterase, 21-50 wbc's, 2+ bacteria with moderate epithelial findings, however given patient's lactic acidosis with marginally elevated anion gap concern is for potential bacterial infection. Patient is therefore started on medications of Rocephin for UTI that will be continued, she received 30 mL/kilos of lactated Ringer's and she is given a 20 mEq K rider. She is being admitted in the setting of having suspected UTI, dehydration as evidenced by electrolyte derangements, chronic sacral wound an acute anion gap lactic acidosis. Physical exam by both this provider and emergency room provider is not concerning for acute infection of current chronic sacral wound. As discussed with ER physician, there are concerns by both of us that the tonny sullivan's son, although doing what he can to care for his mom, may not be enough in her advanced MS stage. Plan is for care coordination to evaluate as well as PT and OT to make recommendations for discharge planning. 11/13/24 Patient was seen and examined at bedside. she is alert and oriented to her name. denies any chest pain, SOb,a bd pain, N/V. wound care team on board. continue IVF for dehydration and hypernatremia. Continue Abx for possible UTI sepsis. follow culture results. 11/14/24 Patient was seen and examined at bedside. she is feeling fine. denies chest pain, SOB, ABd pain. Na still 152. continue D5w. potassium 2.9. will give iv potassium. U/C positive for enterococcus. added vancomycin. follow final culture result. na 11/15 pt is seen and examined. s he is resting in bed with eyes closed. appears in no distress. k was low this morning replaced. MBS today. 11/16 unable to do MBS until Monday. Will order PPN IV as pt is not eating or drinking. Tried to call call to discuss plan of care, no answer. Pt appears comfortable when examined. 11/17 pt is awake this morning, somewhat confused but knows her name/. Denies pain or any discomfort. PPN IV infusing. Review of Systems Review of Systems: All information received was from the son who is at the bedside. All systems reviewed & are unremarkable except as noted in HPI and below ROS unobtainable: Yes other (Unobtainable per patient.) Exam Const: General: comfortable and no acute distress Other: Thin, emaciated, appearing older than current age female patient lying supine on stretcher at this time in no acute distress. HENMT: Face/Nose/Sinus: Normal nares present Mouth: Yes dry mucous membranes Other: Flaky lips Eyes: General: appearance normal, both eyes and all related structures Neck: Neck: supple and no JVD Lymphatic: lymphadenopathy not noted Resp: Effort & Inspection: normal respiratory effort Auscultation: clear to auscultation bilaterally Cardio: Rate: regular rate Rhythm: regular rhythm Heart sounds: no gallops, Murmur heart sound present systolic holo (Grade 2) and no rubs GI: Inspection: non-distended Auscultation: normal bowel sounds Urinary Catheter: Urinary Catheter: patent and draining and urine clear Skin: General skin exam: normal color, No rashes and wounds noted Rashes: no rashes noted Wounds: wounds noted sacrum bed granulating well and beefy red, without odor and open; no drainage, not malodorous and without any surrounding erythema Neuro: Speech: normal speech (Patient does answer to name. Calls me by name in clear speech) Motor exam (neuro): Abnormal motor strength present (Generalized weakness, worse in legs) Sensory Exam: normal sensation Other: Alert and oriented to self only Extrem: General: normal to inspection, no edema and no pedal edema Psych: Affect: normal affect Other: Alert oriented to self only Objective Data Vital Signs Vital Signs: Vital Signs - 24 hr 11/16/24 14:00 11/16/24 16:00 11/16/24 20:01 Temperature 97.2 F L Pulse Rate 93 92 82 Respiratory Rate 18 Blood Pressure 132/92 H Pulse Oximetry 97 Oxygen Delivery Fraction of Inspired Oxygen 11/16/24 20:26 11/16/24 22:00 11/16/24 22:11 Temperature 97.8 F Pulse Rate 86 Respiratory Rate 18 Blood Pressure 145/86 H Pulse Oximetry 100 100 100 Oxygen Delivery Room Air Room Air Fraction of Inspired Oxygen 21 11/17/24 00:05 11/17/24 04:01 11/17/24 06:00 Temperature 97.6 F Pulse Rate 87 88 83 Respiratory Rate 18 Blood Pressure 141/78 H Pulse Oximetry 98 Oxygen Delivery Fraction of Inspired Oxygen Intake/Output Intake/Output: Intake & Output 11/14/24 11/15/24 11/16/24 11/17/24 23:59 23:59 23:59 23:59 Intake Total 2400 2350 1300 1350 Output Total 1250 3000 3955 800 Balance [phone] 550 Meds/Results Medications: Active Medications Generic Name Dose Route Start Last Admin Trade Name Freq PRN Reason Stop Dose Admin Acetaminophen 650 mg 11/12/24 21:41 Acetaminophen 325 Mg Tablet PO Q4H PRN Mild Pain (1-3) or Fever Enoxaparin Sodium 40 mg 11/13/24 09:00 11/17/24 10:10 Enoxaparin 40 Mg/0.4 Ml Syringe SUB-Q 40 mg DAILY APRYL Administration Hydralazine HCl 10 mg 11/12/24 22:28 Hydralazine Hcl 20 Mg/Ml Vial IV PUSH Q8H PRN Blood Pressure - High Hydromorphone HCl 0.25 mg 11/15/24 14:45 Hydromorphone Hcl Inj (*Crx) 2 Mg/Ml Vial IV PUSH Q3H PRN Pain Rated 7-10 Dextrose/Lactated Ringer's 1,000 mls @ 100 mls/hr 11/12/24 22:30 11/16/24 18:13 Dextrose 5%/Lactated Ringers IV CONT Not Given .Q10H APRYL Dextrose 1,000 mls @ 50 mls/hr 11/16/24 11:06 Dextrose 10% IV CONT .Q20H PRN if PN is interrupted Amino Acids/Electrolytes/Dextrose 1,000 mls @ 80 mls/hr 11/16/24 12:00 11/17/24 00:57 Clinimix E 4.25%/5% Solution IV CONT 80 mls/hr .[id number] APRYL Administration Protocol Fat Emulsion Intravenous 250 mls @ 20.833 mls/hr 11/16/24 12:00 11/17/24 00:48 Lipids 20% IVPB Infused Q24H APRYL Infusion Ampicillin Sodium 2 gm in 100 mls @ 200 mls/hr 11/16/24 21:00 11/17/24 10:10 Ampicillin 2 Gm/Ns 100 Ml IVPB 11/20/24 21:29 200 mls/hr Q6H APRYL Administration Insulin Aspart 2 - 5 units 11/16/24 12:00 11/17/24 06:19 Insulin Aspart (*Bkc) 100 Units/Ml SUB-Q Not Given Q6HR [facility] Protocol Ondansetron HCl 4 mg 11/12/24 21:41 Ondansetron Inj 4 Mg/2 Ml Vial IV PUSH Q4H PRN Nausea Radiology Results: ITS Impressions Head CT 11/12/24 20:46 IMPRESSION: No acute intracranial findings. Abdomen/Pelvis CT 11/12/24 21:13 IMPRESSION: 1. Wound is seen in the area of the sacrum with no definite collection. Surrounding fat stranding is seen. 2. No evidence of appendicitis, diverticulitis or intestinal obstruction. Labs Labs: Laboratory Results - last 24 hr 11/16/24 11/17/24 11/17/24 11:54 00:05 06:04 Sodium 138 Potassium 3.3 L Chloride 103 Carbon Dioxide 27 Anion Gap 8 BUN 13 D Creatinine 0.50 L Estim Creat Clear Calc 76 Estimated GFR > 60 Glucose 105 POC Capillary Glucose 97 89 Calcium 8.3 L Phosphorus 3.2 Triglycerides 107 11/17/24 11/17/24 06:18 11:52 Sodium Potassium Chloride Carbon Dioxide Anion Gap BUN Creatinine Estim Creat Clear Calc Estimated GFR Glucose POC Capillary Glucose 102 91 Calcium Phosphorus Triglycerides Quality VTE Prophylaxis VTE prophylaxis: pharmacologic ordered
[2024-11-17] MEDS: FAT EMULSIONS IV 20% 250 ML 20.8 ML IVPB (13:32)
[2024-11-17] MEDS: POTASSIUM CHLORIDE INJ 40 MEQ in SODIUM CHLORIDE 0.9% IV 500 ML 130 MEQ IVPB (13:33)
[2024-11-18] VITALS (10 sets, daily range): BP systolic 118–121; BP diastolic 76–81; PULSE 82–97; RESP 16–20; TEMP 36.1–36.8; O2SAT 98–100
[2024-11-18] MEDS: AMPICILLIN 2 GM/NS 100 ML 2 GM/100 ML BAG IVPB ×4 (00:52→21:04)
[2024-11-18 06:02] LABS: Hematocrit 30.4 % (37.0-47.0); Hemoglobin 10.5 g/dL (12.0-15.0); Immature Granulocyte Percent A 0.5 % (0-0.5); Lymphocytes Absolute Auto 0.86 K/mm3 (0.9-3.2); Mean Corpuscular HGB Conc 34.5 g/dl (32-36); Mean Corpuscular Hemoglobin 27.0 pg (26-34); Mean Corpuscular Volume 78.1 fl (80-100); Nucleated Red Blood Cells Absolute Auto 0.000 K/mm3 (0.0-0.012); Nucleated Red Blood Cells Perc 0.0 % (0.0-0.2); Platelet Count Result 278 k/mm3 (150-375); Red Blood Count 3.89 M/mm3 (4.2-5.4); White Blood Count 7.7 K/mm3 (4.5-10.0)
[2024-11-18 06:14] LABS: INR 1.1; Prothrombin Time 14.8 Seconds (11.1-14.7)
[2024-11-18 06:15] LABS: Alanine Aminotransferase 14 U/L (6-35); Albumin Level 2.7 g/dL (3.5-5.1); Alkaline Phosphatase 61 U/L (38-126); Anion Gap 7 mmol/L (4-12); Aspartate Amino Transferase 23 U/L (14-36); Bilirubin,Total 0.3 mg/dL (0.2-1.3); Blood Urea Nitrogen 16 mg/dL (7-17); Calcium 8.8 mg/dL (8.4-10.2); Carbon Dioxide 27 mmol/L (22-30); Chloride 104 mmol/L (98-107); Estimated CRCL calculation 76 ml/min; Estimated Glomerular Filt Rate > 60; Glucose 108 mg/dL (65-110); Magnesium 1.8 mg/dL (1.6-2.3); Partial Thromboplastin Time 32.2 Seconds (22.3-36.8); Potassium 3.5 mmol/L (3.4-5.0); Sodium 138 mmol/L (137-145); Total Protein 7.0 g/dL (6.3-8.2)
[2024-11-18 06:22] LABS: Transferrin 93 mg/dL (206-381)
[2024-11-18] MEDS: AMINO ACIDS 4.25%/D5W/LYTES/CA 1,000 ML 80 ML IV CONT (06:44)
[2024-11-18] MEDS: ENOXAPARIN 40 MG/0.4 ML SYRINGE SUB-Q (10:14)
--- NOTE | 2024-11-18 10:21 | P.PNIM_ITS ---
Progress Note: A&P Assessment and Plan (1) UTI (urinary tract infection): Code(s): N39.0 - Urinary tract infection, site not specified Status: Acute Assessment and Plan: * As evidenced by urinalysis with 2+ leuk esterase, 21-50 wbc's and 2+ bacteria. * U/C positive for enterococcus. added vancomycin. follow final culture result. * Continue Rocephin 1 g Q 24 hours * Trend and monitor vital signs and daily labs * -ampicillin started 11/15, ceftriaxone stopped based on c/s * continue regimen 11/18 plan of care discussion with sonDJ. MARKOS/Matthew today for nutrition. Will switch antibiotics to PO if NG is available until then, continue IV antibiotics may need PICC/MID line to complete the course (2) Dehydration: Code(s): E86.0 - Dehydration Status: Acute Assessment and Plan: * As evidenced by 3+ ketones in urine, hypernatremia of 156, hypokalemia of 3.1, BUN of 23 and chloride of 116. * Patient received 30 mL/kilos of LR in ER * Will continue maintenance fluids with D5 LR at 100 mL/hours as patient will be kept NPO for swallow eval and noted glucose on labs is 82. * Trended monitor labs * Accurate output measurement with Stone * started on PPN IV * 11/18 NG/dobhoff today, start tube feedings. will need dietitian consult (3) Decubitus ulcer of sacral region, unstageable: Code(s): L89.150 - Pressure ulcer of sacral region, unstageable Status: Chronic Assessment and Plan: * Consult wound care, appreciate their recommendations * CT scan abdomen pelvis did not appreciate any osteomyelitis or abscess formation related to wound. * Consider surgery consult should wound start changing in appearance. * added pain mgmt prn as pt is in a lot of pain and discomfort with dressing changes (4) Electrolyte abnormality: Code(s): E87.8 - Other disorders of electrolyte and fluid balance, not elsewhere classified Status: Acute Assessment and Plan: * hypokalemia and hypernatremia on admission * Suspect due to dehydration secondary to anion gap lactic acidosis which is most likely due to starvation ketosis as patient also has 3+ ketones in her urine. * Patient has received 20 mEq of potassium chloride per IV * She has received 30 milliliters/kilogram of lactated Ringer's * We will continue to monitor and trend labs * Hydrate with D5 LR at 100 mL/h * * stop D5LP and started PPN IV * replaced K 40 meq x 2 doses and repeat K after IV is done as low in am again * replace Mg, repeat lab ;later with K * tele monitor * PPN should help with improvement of electrolytes 7/6- 3.3 today. will order 40 meq IV x 1 11/18 k 3.5 today (5) Increased anion gap metabolic acidosis: Code(s): E87.29 - Other acidosis Status: Acute Assessment and Plan: * As evidenced by lactic acid of 2.7, 3+ ketonuria, and anion gap of 14 * Suspect starvation ketosis which likely led to patient's current dehydration and electrolyte abnormality * Correcting with IV fluids. * Repeat lactic acid is 1.4 after hydration * Continue to monitor and trend labs * = * gap is 6 * (6) Paroxysmal atrial fibrillation: Code(s): I48.0 - Paroxysmal atrial fibrillation Status: Chronic Assessment and Plan: * Chronic in nature * Not currently in AFib * on Eliquis but NPO now-continue lovenox (7) Hypertension: Qualifiers: Hypertension type: primary hypertension Qualified Code(s): I10 - Essential (primary) hypertension Code(s): I10 - Essential (primary) hypertension Status: Chronic Assessment and Plan: * Continue home medications once they have been verified and confirmed and patient is able to take oral medications * Monitor in the interim time and if needed substitute IV. * - reviewed and stable (8) Anticoagulated by anticoagulation treatment: Code(s): Z79.01 - prison (current) use of anticoagulants Status: Chronic Assessment and Plan: * Continue Eliquis once patient is able to tolerate oral medications and they have been verified and confirmed * In the interim time will utilize Lovenox. (9) Multiple sclerosis: Onset Date: 1997 Code(s): G35 - Multiple sclerosis Status: Chronic Assessment and Plan: * Advanced, suspect end-stage causing complete debility for patient. * Suspect pt is actually having Failure To Thrive at this stage in her MS. * * 11/18 goals of care discussion with son BREA. He is not ready for comfort measures for pt but will discuss it with family. * care coordination is aware and following along. (10) Dysphagia: Qualifiers: Dysphagia type: unspecified Qualified Code(s): R13.10 - Dysphagia, unspecified Code(s): R13.10 - Dysphagia, unspecified Status: Acute Assessment and Plan: * Suspect acute on chronic. Patient's son states that he notices she has been pocketing foods in her mouth. They have also been having to spoon feed her her drinks with a thickened wall. Concern for high risk of aspiration. * Speech evaluation ordered for swallow eval * NPO for now with IV fluid hydration * Consider GI/surgery consult for potential feeding tube if needed * * 11/18 too weak to sit up for MBS * family wants to proceed with NG/Dobbhoff for now and make a decision about PEG vs comfort measures Time Spent With Patient Time with patient: Greater than 35 minutes Subjective Date/time seen: 11/18/24 10:21 Interval history: per HPI: This is a debilitated 64-year-old female patient with history of multiple sclerosis, paroxysmal atrial fibrillation on chronic Eliquis, DVT, hypertension, dysphagia and aspiration, ESTEFANÍA and sacral wound who is status post debridement couple of weeks ago and recently discharged here on October 29, 2024 who is brought back to the emergency room this evening for a wound check. Patient currently resides at home with her son who is her primary caregiver and power of [place] attorney for medical purposes. Patient was originally discharged to [facility] and later left there as a discharge as she was running out of days that insurance would pay for in her son reportedly took her home. He has been having a wound nurse, physical therapy through [facility] coming into the home to help with assessment in caregiving. I discussed with the son the bedside a little bit more about patient's baseline and patient is usually alert and oriented to self only. She cannot answer where she is, why she is here or what date or time. She reportedly eats small moist softened foods in small amounts but her son notices that she has been pocketing foods. She has been having her drinks with a thick in her and she has been spoon fed her drinks, however he notes yesterday she did attempt to drink through a straw. He has been doing daily wound care at home cleaning the wound and applying silver gel. Patient is not a good historian and does not provide additional information to her current situation. In the emergency room a workup was performed and EKG shows sinus tachycardia 102 beats per minute and a left axis deviation, vital signs are unremarkable, CT of the head is negative for any acute intracranial findings, CT abdomen and pelvis showing sacral wound without any collection such as abscess. There is fat stranding present. No acute osteomyelitis or other acute intra-abdominal findings present. Labs were significant for electrolyte derangement of sodium of 156, potassium of 3.1, chloride of 116, BUN of 23, lactic acid of 2.7, anion gap of 14, urinalysis showing 3+ ketones, 2+ blood, 2+ leukocyte esterase, 21-50 wbc's, 2+ bacteria with moderate epithelial findings, however given patient's lactic acidosis with marginally elevated anion gap concern is for potential bacterial infection. Patient is therefore started on medications of Rocephin for UTI that will be continued, she received 30 mL/kilos of lactated Ringer's and she is given a 20 mEq K rider. She is being admitted in the setting of having suspected UTI, dehydration as evidenced by electrolyte derangements, chronic sacral wound an acute anion gap lactic acidosis. Physical exam by both this provider and emergency room provider is not concerning for acute infection of current chronic sacral wound. As discussed with ER physician, there are concerns by both of us that the patient's son, although doing what he can to care for his mom, may not be enough in her advanced MS stage. Plan is for care coordination to evaluate as well as PT and OT to make recommendations for discharge planning. 11/13/24 Patient was seen and examined at bedside. she is alert and oriented to her name. denies any chest pain, SOb,a bd pain, N/V. wound care team on board. continue IVF for dehydration and hypernatremia. Continue Abx for possible UTI sepsis. follow culture results. 11/14/24 Patient was seen and examined at bedside. she is feeling fine. denies chest pain, SOB, ABd pain. Na still 152. continue D5w. potassium 2.9. will give iv potassium. U/C positive for enterococcus. added vancomycin. follow final culture result. na 11/15 pt is seen and examined. s he is resting in bed with eyes closed. appears in no distress. k was low this morning replaced. MBS today. 11/16 unable to do MBS until Monday. Will order PPN IV as pt is not eating or drinking. Tried to call call to discuss plan of care, no answer. Pt appears comfortable when examined. 11/17 pt is awake this morning, somewhat confused but knows her name/. Denies pain or any discomfort. PPN IV infusing. \ 11/18- unable to do MBS as pt is too weak to sit up. Called son, BREA at [phone] to discuss plan and goals of care. PPN might not be a good option for now as her vasculature is poor and there is limited /No IV access. Discussed with son options. He is ok with NG/Dobbhoff fo tube feedings and PICC if needed. PEG tube options and comfort/palliative/hospice options discussed as well. He is not interested in comfort measures at thi point and hoping pt gets strong enough to eat on her own. Wants to do NG/Dobbhoff and meanwhile have discussion with pt's and other family members. Care coordination is aware. Review of Systems Review of Systems: All information received was from the son who is at the bedside. All systems reviewed & are unremarkable except as noted in HPI and below ROS unobtainable: Yes other (Unobtainable per patient.) Exam Const: General: no acute distress HENMT: Face/Nose/Sinus: Normal nares present Mouth: Yes dry mucous membranes Other: Flaky lips Eyes: General: appearance normal, both eyes and all related structures Neck: Neck: supple and no JVD Lymphatic: lymphadenopathy not noted Resp: Effort & Inspection: normal respiratory effort Auscultation: clear to auscultation bilaterally Cardio: Rate: regular rate Rhythm: regular rhythm Heart sounds: no gallops, Murmur heart sound present systolic holo (Grade 2) and no rubs GI: Inspection: non-distended Auscultation: normal bowel sounds Urinary Catheter: Urinary Catheter: patent and draining and urine clear Skin: General skin exam: normal color, No rashes and wounds noted Rashes: no rashes noted Wounds: wounds noted sacrum bed granulating well and beefy red, without odor and open; no drainage, not malodorous and without any surrounding erythema Neuro: Speech: normal speech (Patient does answer to name. Calls me by name in clear speech) Motor exam (neuro): Abnormal motor strength present (Generalized weakness, worse in legs) Sensory Exam: normal sensation Other: Alert and oriented to self only Extrem: General: normal to inspection, no edema and no pedal edema Psych: Affect: normal affect Other: Alert oriented to self only Objective Data Vital Signs Vital Signs: Vital Signs - 24 hr 11/17/24 12:00 11/17/24 14:00 11/17/24 16:00 Temperature 97 F L Pulse Rate 94 96 97 Respiratory Rate 18 Blood Pressure 146/88 H Pulse Oximetry 100 Oxygen Delivery 11/17/24 20:01 11/17/24 21:00 11/17/24 22:00 Temperature 97.9 F Pulse Rate 89 91 Respiratory Rate 20 Blood Pressure 132/80 Pulse Oximetry 99 99 Oxygen Delivery Room Air 11/18/24 00:00 11/18/24 04:00 11/18/24 06:00 Temperature 98.2 F Pulse Rate 89 91 97 Respiratory Rate 20 Blood Pressure 120/81 Pulse Oximetry 98 Oxygen Delivery Intake/Output Intake/Output: Intake & Output 11/15/24 11/16/24 11/17/24 11/18/24 23:59 23:59 23:59 23:59 Intake Total 2350 1300 2550 1450.0 Output Total 3000 3955 2000 875 Pfshepj -255 -3485 550 575.0 Meds/Results Medications: Active Medications Generic Name Dose Route Start Last Admin Trade Name Freq PRN Reason Stop Dose Admin Acetaminophen 650 mg 11/12/24 21:41 Acetaminophen 325 Mg Tablet PO Q4H PRN Mild Pain (1-3) or Fever Enoxaparin Sodium 40 mg 11/13/24 09:00 11/18/24 10:14 Enoxaparin 40 Mg/0.4 Ml Syringe SUB-Q 40 mg DAILY APRYL Administration Hydralazine HCl 10 mg 11/12/24 22:28 Hydralazine Hcl 20 Mg/Ml Vial IV PUSH Q8H PRN Blood Pressure - High Hydromorphone HCl 0.25 mg 11/15/24 14:45 Hydromorphone Hcl Inj (*Crx) 2 Mg/Ml Vial IV PUSH Q3H PRN Pain Rated 7-10 Dextrose/Lactated Ringer's 1,000 mls @ 100 mls/hr 11/12/24 22:30 11/16/24 18:13 Dextrose 5%/Lactated Ringers IV CONT Not Given .Q10H APRYL Dextrose 1,000 mls @ 50 mls/hr 11/16/24 11:06 Dextrose 10% IV CONT .Q20H PRN if PN is interrupted Amino Acids/Electrolytes/Dextrose 1,000 mls @ 80 mls/hr 11/16/24 12:00 11/18/24 06:44 Clinimix E 4.25%/5% Solution IV CONT 80 mls/hr .[id number] APRYL Administration Protocol Fat Emulsion Intravenous 250 mls @ 20.833 mls/hr 11/16/24 12:00 11/18/24 05:55 Lipids 20% IVPB Infused Q24H APRYL Infusion Ampicillin Sodium 2 gm in 100 mls @ 200 mls/hr 11/16/24 21:00 11/18/24 06:40 Ampicillin 2 Gm/Ns 100 Ml IVPB 11/21/24 00:29 Infused Q6H APRYL Infusion Insulin Aspart 2 - 5 units 11/16/24 12:00 11/18/24 06:51 Insulin Aspart (*Bkc) 100 Units/Ml SUB-Q Not Given Q6HR [facility] Protocol Ondansetron HCl 4 mg 11/12/24 21:41 Ondansetron Inj 4 Mg/2 Ml Vial IV PUSH Q4H PRN Nausea Radiology Results: ITS Impressions Head CT 11/12/24 20:46 IMPRESSION: No acute intracranial findings. Abdomen/Pelvis CT 11/12/24 21:13 IMPRESSION: 1. Wound is seen in the area of the sacrum with no definite collection. Surrounding fat stranding is seen. 2. No evidence of appendicitis, diverticulitis or intestinal obstruction. Labs Labs: Laboratory Results - last 24 hr 11/17/24 11/17/24 11/18/24 11:52 18:15 00:22 WBC RBC Hgb Hct MCV MCH MCHC RDW Plt Count MPV Immature Gran % (Auto) Neut % (Auto) Lymph % (Auto) Darke % (Auto) Eos % (Auto) Baso % (Auto) Lymph # (Auto) Darke # (Auto) Eos # (Auto) Baso # (Auto) Abs Immat Gran (auto) Absolute Neuts (auto) Absolute Nucleated RBC Nucleated RBC % PT INR APTT Sodium Potassium Chloride Carbon Dioxide Anion Gap BUN Creatinine Estim Creat Clear Calc Estimated GFR Glucose POC Capillary Glucose 91 75 84 Calcium Phosphorus Magnesium Transferrin Total Bilirubin AST ALT Alkaline Phosphatase Total Protein Albumin 11/18/24 11/18/24 05:33 05:47 WBC 7.7 RBC 3.89 L Hgb 10.5 L Hct 30.4 L MCV 78.1 L MCH 27.0 MCHC 34.5 RDW 18.0 H Plt Count 278 MPV 10.2 Immature Gran % (Auto) 0.5 Neut % (Auto) 78.9 H Lymph % (Auto) 11.1 L Darke % (Auto) 6.2 Eos % (Auto) 3.0 Baso % (Auto) 0.3 Lymph # (Auto) 0.86 L Darke # (Auto) 0.5 Eos # (Auto) 0.2 Baso # (Auto) 0.0 Abs Immat Gran (auto) 0.04 H Absolute Neuts (auto) 6.1 Absolute Nucleated RBC 0.000 Nucleated RBC % 0.0 PT 14.8 H INR 1.1 APTT 32.2 Sodium 138 Potassium 3.5 Chloride 104 Carbon Dioxide 27 Anion Gap 7 BUN 16 Creatinine 0.50 L Estim Creat Clear Calc 76 Estimated GFR > 60 Glucose 108 POC Capillary Glucose 112 H Calcium 8.8 Phosphorus 3.4 Magnesium 1.8 Transferrin 93 L Total Bilirubin 0.3 AST 23 ALT 14 Alkaline Phosphatase 61 Total Protein 7.0 Albumin 2.7 L Quality VTE Prophylaxis VTE prophylaxis: pharmacologic ordered
--- NOTE | 2024-11-18 11:30 | PCNFU ---
Nutrition Follow-Up Complete: Severe protein calorie malnutrition related to inadequate energy intake as evidenced by a -12% wt loss x 1 month and NFPE findings for severe subcutaneous fat loss (cheeks, bicep) and severe muscle wasting (evangelical, clavicle, shoulder). Goal:Meet estimated needs Pt current nutrition is NPO, PPN was running at 80ml/hr providing 1153kcals, 82g protein, 2170ml free fluids. Plans for tube feeding via NG tube Nutrition recommendation: continue with plan of care for tube feedings Last recorded weight is 51.3 kg. Bowel Motility: +BM 11/16 Labs Reviewed: Cr:0.5 Meds Noted: lovenox Skin: Stage IV to buttocks Additional Notes: Pt was started on PPN over the weekend. Plans to transition to tube feeds to utilize the gut which is nutritionally recommended. Nursing concerned about placing the NG tube due to pt's inability to swallow. Spoke with hospitalist per nursing request and ensured tube can be placed, current plans are to continue with that route of care. Agree with plan of care. Tube feeding recommendations are for Jevity 1.5 @ a goal rate of 40ml/hr over 22hrs to provide 1320kcals, 56g protein, 668ml free water. Recommend a 100ml flush q 4 hrs to provide an additional 600ml free water for a total of 1268ml over 24hrs. Monitor diet orders, plan of care, wt, labs. Follow up every Monday and Monday
--- NOTE | 2024-11-18 11:41 | PCDIET ---
Tube feeding recommendations: Jevity 1.5 @ a GOAL rate of 40ml/hr over 22hrs to provide 1320kcals, 56g protein, 668ml free water. Recommend a 100ml flush q 4 hrs to provide an additional 600ml free water for a total of 1268ml over 24hrs.
--- NOTE | 2024-11-18 14:02 | P.CDI_ITS ---
CDI Query Clarification Request 1)BMI: 20.0 Nutritional Diagnostic Statement: Please refer to the comprehensive nutrition assessment for further information. If you agree with diagnosis of Severe protein calorie malnutrition related to inadequate energy intake as evidenced by a -12% wt loss x 1 month and NFPE findings for severe subcutaneous fat loss (cheeks, bicep) and severe muscle wasting (hoahaoism, clavicle, shoulder). Please specify severity if known: * Mild * Moderate * Severe * Other/Unknown <Carla Gregg RN - Last Filed: 11/18/24 14:05> Clarified Diagnosis Clarified Diagnosis: severe <Katherin Anthony APRN - Last Filed: 11/18/24 15:24>
--- NOTE | 2024-11-18 15:10 | PCSTNOTE ---
Attempted to complete MBS on this date;however per RN pt cannot sit up. Testing postponed until pt is able to sit upright for testing.
[2024-11-18] MEDS: diazePAM INJ (*CRX) 10 MG/2 ML SYRINGE 5 MG IV PUSH (17:02)
[2024-11-19] VITALS (10 sets, daily range): BP systolic 120–144; BP diastolic 70–81; PULSE 77–112; RESP 18; TEMP 35.6–36.3; O2SAT 96–100
[2024-11-19] MEDS: DEXTROSE 10% 1,000 ML 50 ML IV CONT (00:01)
[2024-11-19] MEDS: AMPICILLIN 2 GM/NS 100 ML 2 GM/100 ML BAG IVPB (04:23)
[2024-11-19 06:16] LABS: Anion Gap 6 mmol/L (4-12); Blood Urea Nitrogen 10 mg/dL (7-17); Calcium 8.6 mg/dL (8.4-10.2); Carbon Dioxide 28 mmol/L (22-30); Chloride 105 mmol/L (98-107); Estimated CRCL calculation 62 ml/min; Estimated Glomerular Filt Rate > 60; Glucose 108 mg/dL (65-110); Potassium 3.0 mmol/L (3.4-5.0); Sodium 139 mmol/L (137-145); Triglycerides 124 mg/dL (<150)
--- NOTE | 2024-11-19 08:51 | PCSTNOTE ---
per xray, ot is not able to sit upright for testing and a Dobhoff was place yesterday. Per xray MBS is canceled.
[2024-11-19] MEDS: AMOXICILLIN PO ×3 (10:04→21:04)
[2024-11-19] MEDS: APIXABAN 5 MG TABLET PO ×2 (10:04→21:04)
--- NOTE | 2024-11-19 10:54 | PCNFU ---
Addendum entered by Neda Alves, BLACK, LDN 11/19/24 11:04: Noted pt has a stage IV pressure injury to buttocks, will add JANINA BID via tube feed for wound healing. Original Note: Nutrition Follow-Up Complete: Severe protein calorie malnutrition related to inadequate energy intake as evidenced by a -12% wt loss x 1 month and NFPE findings for severe subcutaneous fat loss (cheeks, bicep) and severe muscle wasting (samaritan, clavicle, shoulder). Goal:Meet estimated needs Pt not meeting goal. Pt current nutrition is NPO, dobhoff placed for tube feeding. Nutrition recommendation: Initiate tube feedings per previous rec Last recorded weight is 45.2 kg. Bowel Motility: +BM / Labs Reviewed: K:3.0, Cr:0.5, Glu:115 Meds Noted: lovenox Skin: Stage IV to buttocks Additional Notes: PPN on hold and lactated ringers discontinued. Pt now has dobhoff placed and request for tube feeding to start. Recommend Jevity 1.5, initate at 20ml/hr and advance by 10ml/hr q 4hrs to a GOAL rate of 40ml/hrs. This will provide 1320kcals, 56g protein, 668ml free water. Recommend a 100ml flush q 4 hrs to provide an additional 600ml free water for a total of 1268ml over 24hrs. Monitor tube feeding, tolerance, plan of care, wt, labs. Follow up every Monday and Monday.
[2024-11-19] MEDS: POTASSIUM CHLORIDE 20 MEQ PACKET (FOR LIQUID) 40 MEQ PO (17:16)
[2024-11-19] MEDS: LACTATED RINGERS 1,000 ML 100 ML IV CONT (23:04)
--- NOTE | 2024-11-19 23:48 | ECG_ITS ---
Test Date: 2024-11-19 23:58:30 Measurements Intervals [place] Rate: 121 P: 33 WA: 122 QRS: -45 QRSD: 85 T: 43 QT: 338 QTc: 480 Interpretive Statements SINUS TACHYCARDIA LEFT AXIS DEVIATION [QRS AXIS < -30] POOR R-WAVE PROGRESSION NONSPECIFIC T-WAVE ABNORMALITY ABNORMAL ECG Compared to ECG 11/12/2024 20:06:29 NO SIGNIFICANT CHANGE Electronically Signed On 11-20-2024 07:51:40 CDT by Marquise Thompson M.D.
[2024-11-20] VITALS (9 sets, daily range): BP systolic 123–141; BP diastolic 76–83; PULSE 81–115; RESP 14–20; TEMP 36.2–36.9; O2SAT 99–100
--- NOTE | 2024-11-20 03:23 | PC.NURSE ---
Orders to increase NG feeding by 10ml Q4H as long as patient tolerates feeding, found on 20mL/hr. After NG feeding increased by 10ml = 30ml/hr, telemetry reading showed sinus tachycardia 120's sustaining, patient was asymptomatic, denies chest pain or shortness of breath. Vital sign B/P 114/87 P127, R 20 lung sounds clear but diminished, 98.5F temp, with 100% saturation room air. Arielle Lainez notified new orders given to turn feeding back down to 20ml/hr, start LR 100ml/hr with STAT EKG AND if sinus tachycardia persists after intervention order STAT CXR. Patient stable at this time, call light within reach, fall precaution alarm set on bed. Will continue to monitor patient progress.
--- NOTE | 2024-11-20 03:50 | PC.NURSE ---
Dr. Goldstein viewed STAT EKG, no new orders at this time.
--- NOTE | 2024-11-20 03:51 | PC.NURSE ---
Jevity NG feeding resumed with 10ml increase total 30ml/hr. Patient tolerated adjustment with out sinus tachycardia. Patient stable, sleeping, call light within reach, fall precaution bed alarm set, will continue to monitor progess.
[2024-11-20] MEDS: AMOXICILLIN PO ×3 (05:27→21:11)
[2024-11-20 06:33] LABS: Anion Gap 6 mmol/L (4-12); Blood Urea Nitrogen 7 mg/dL (7-17); Calcium 8.9 mg/dL (8.4-10.2); Carbon Dioxide 27 mmol/L (22-30); Chloride 104 mmol/L (98-107); Estimated CRCL calculation 55 ml/min; Estimated Glomerular Filt Rate > 60; Glucose 91 mg/dL (65-110); Potassium 3.8 mmol/L (3.4-5.0); Sodium 137 mmol/L (137-145)
[2024-11-20] MEDS: POTASSIUM CHLORIDE 20 MEQ PACKET (FOR LIQUID) 40 MEQ PO (08:54)
[2024-11-20] MEDS: APIXABAN 5 MG TABLET PO ×2 (08:54→21:11)
--- NOTE | 2024-11-20 11:41 | P.PNIM_ITS ---
Progress Note: A&P Assessment and Plan (1) ESTEFANÍA (acute kidney injury): Code(s): N17.9 - Acute kidney failure, unspecified Status: Acute (2) Abnormal urinalysis: Code(s): R82.90 - Unspecified abnormal findings in urine Status: Acute (3) Dehydration: Code(s): E86.0 - Dehydration Status: Acute (4) Hypernatremia: Code(s): E87.0 - Hyperosmolality and hypernatremia Status: Acute (5) UTI (urinary tract infection): Code(s): N39.0 - Urinary tract infection, site not specified Status: Acute (6) Decubitus ulcer of sacral region, unstageable: Code(s): L89.150 - Pressure ulcer of sacral region, unstageable Status: Chronic Plan (1) UTI (urinary tract infection): Code(s): N39.0 - Urinary tract infection, site not specified Status: Acute Urine culture grows Enterococcus ampicillin started 11/15, ceftriaxone stopped based on c/s Starvation, positive ketone in urine, Dehydration,hypernatremia of 156, hypokalemia of 3.1, BUN of 23 and chloride of 116. Received fluid resuscitation on NG/dobhoff today, start tube feedings. Patient need NG tube feeding full long-term life support Discussed with patient's over the phone (3) Decubitus ulcer of sacral region, unstageable: Code(s): L89.150 - Pressure ulcer of sacral region, unstageable Status: Chronic Assessment and Plan: * Consult wound care, appreciate their recommendations * CT scan abdomen pelvis did not appreciate any osteomyelitis or abscess formation related to wound. * Consider surgery consult should wound start changing in appearance. * I48.0 - Paroxysmal atrial fibrillation Status: Chronic Assessment and Plan: * Chronic in nature * Not currently in AFib * on Eliquis but NPO now-continue lovenox * Hypertension: Qualifiers: Hypertension type: primary hypertension Qualified Code(s): I10 - Essential (primary) hypertension Code(s): I10 - Essential (primary) hypertension Status: Chronic Assessment and Plan: * Continue home medications Adjust medication according to blood pressure * (8) Anticoagulated by anticoagulation treatment: Code(s): Z79.01 - emt intermediate (current) use of anticoagulants Status: Chronic Assessment and Plan: * Continue Eliquis once patient is able to tolerate oral medications and they have been verified and confirmed * In the interim time will utilize Lovenox Multiple sclerosis: Onset Date: 1997 Code(s): G35 - Multiple sclerosis Status: Chronic Assessment and Plan: * Advanced, suspect end-stage causing complete debility for patient. * Suspect pt is actually having Failure To Thrive at this stage in her MS. * 11/18 goals of care discussion with son BREA. He is not ready for comfort measures for pt but will discuss it with family. * care coordination is aware and following along. Dysphagia: Qualifiers: Dysphagia type: unspecified Qualified Code(s): R13.10 - Dysphagia, unspecified Code(s): R13.10 - Dysphagia, unspecified Status: Acute Assessment and Plan: * Suspect acute on chronic. Patient's son states that he notices she has been pocketing foods in her mouth. They have also been having to spoon feed her her drinks with a thickened wall. Concern for high risk of aspiration. * Speech evaluation ordered for swallow eval * NPO for now with IV fluid hydration Will consult GI/surgery f patient and family agree to accept G tube feeding * Continue PT OT, lead caregiver for evaluation and assisting placement Subjective Date/time seen: 11/20/24 11:41 Interval history: I saw exam patient. Patient is on NG tube feeding Patient has end-stage of multiple sclerosis, patient cannot tolerate diet Discussed with patient's over the phone about patient condition in presents of patient's nurse Kathryn, patient may need a g tube feeding for long-ter m support Exam Narrative: GENERAL: ill-appearing, in no acute distress. Well-nourished. - EYES: EOMI. Anicteric. - HENT: Moist mucous membranes. NG tube in-situ - LUNGS: Clear to auscultation bilateral ly, no wheezing, rhonchi, or rales. - CARDIOVASCULAR: Regular rate and rhyth m. No murmur. No JVD. - ABDOMEN: Soft, non-tender and non-dist ended. No palpable masses. - EXTREMITIES: No edema. Peripheral puls es 2+. Non-tender. - NEUROLOGIC: Moving all extremity slig htly - PSYCHIATRIC: Awake, Alert and oriented x 3. Appropriate mood and affect. - SKIN: Sacral decubitus ulcer - LYMPH: No cervical lymphadenopathy. Objective Data Vital Signs Vital Signs: Vital Signs - 24 hr 11/19/24 12:00 11/19/24 14:00 11/19/24 16:00 Temperature 96.1 F L Pulse Rate 78 86 86 Respiratory Rate 18 Blood Pressure 139/76 Pulse Oximetry 100 Oxygen Delivery 11/19/24 20:01 11/19/24 21:04 11/19/24 21:10 Temperature 97.3 F L Pulse Rate 108 H 112 H Respiratory Rate 18 Blood Pressure 144/81 H Pulse Oximetry 96 96 Oxygen Delivery Room Air 11/20/24 00:05 11/20/24 04:01 11/20/24 05:20 Temperature 98.4 F Pulse Rate 115 H 99 86 Respiratory Rate 14 Blood Pressure 141/76 H Pulse Oximetry 100 Oxygen Delivery 11/20/24 08:50 11/20/24 08:50 Temperature Pulse Rate 86 Respiratory Rate Blood Pressure Pulse Oximetry Oxygen Delivery Room Air Intake/Output Intake/Output: Intake & Output 11/17/24 11/18/24 11/19/24 11/20/24 23:59 23:59 23:59 23:59 Intake Total 2550 1650.0 315.8 0 Output Total 1999 1875 1150 200 Balance 550 -225.0 -834.2 -200 Meds/Results Medications: Active Medications Generic Name Dose Route Start Last Admin Trade Name Freq PRN Reason Stop Dose Admin Acetaminophen 650 mg 11/12/24 21:41 Acetaminophen 325 Mg Tablet PO Q4H PRN Mild Pain (1-3) or Fever Amoxicillin 500 mg 11/19/24 08:00 11/20/24 05:27 Amoxicillin Suspension 500 Mg/6.25 Ml Ud PO 11/21/24 22:01 500 mg Q8HR APRYL Administration Apixaban 5 mg 11/19/24 09:00 11/20/24 08:54 Apixaban 5 Mg Tablet PO 5 mg Q12HR APRYL Administration Dextrose 12.5 gm 11/19/24 00:16 Dextrose 50% 25 Gm/50 Ml Syringe IV PUSH PRN PRN Hypoglycemia Protocol Glucagon 1 mg 11/19/24 00:16 Glucagon For Inj 1 Mg Vial IM PRN PRN Hypoglycemia Protocol Glucose 15 gm 11/19/24 00:16 Glucose Oral Gel 15 Gm Of Glucse In 37.5 Gm Tube PO PRN PRN Hypoglycemia Protocol Hydralazine HCl 10 mg 11/12/24 22:28 Hydralazine Hcl 20 Mg/Ml Vial IV PUSH Q8H PRN Blood Pressure - High Hydromorphone HCl 0.25 mg 11/15/24 14:45 Hydromorphone Hcl Inj (*Crx) 2 Mg/Ml Vial IV PUSH Q3H PRN Pain Rated 7-10 Amino Acids/Electrolytes/Dextrose 1,000 mls @ 80 mls/hr 11/16/24 12:00 11/18/24 06:44 Clinimix E 4.25%/5% Solution IV CONT 80 mls/hr .[id number] [facility] Administration Protocol Fat Emulsion Intravenous 250 mls @ 20.833 mls/hr 11/16/24 12:00 11/18/24 05:55 Lipids 20% IVPB Infused Q24H APRYL Infusion Insulin Aspart 2 - 5 units 11/16/24 12:00 11/20/24 06:41 Insulin Aspart (*Bkc) 100 Units/Ml SUB-Q Not Given Q6HR [facility] Protocol Ondansetron HCl 4 mg 11/12/24 21:41 Ondansetron Inj 4 Mg/2 Ml Vial IV PUSH Q4H PRN Nausea Radiology Results: ITS Impressions Head CT 11/12/24 20:46 IMPRESSION: No acute intracranial findings. Abdomen/Pelvis CT 11/12/24 21:13 IMPRESSION: 1. Wound is seen in the area of the sacrum with no definite collection. Surrounding fat stranding is seen. 2. No evidence of appendicitis, diverticulitis or intestinal obstruction. Labs Labs: Laboratory Results - last 24 hr 11/19/24 11/19/24 11/19/24 12:00 17:10 23:45 Sodium Potassium Chloride Carbon Dioxide Anion Gap BUN Creatinine Estim Creat Clear Calc Estimated GFR Glucose POC Capillary Glucose 108 H 96 100 Calcium Phosphorus 11/20/24 05:50 Sodium 137 Potassium 3.8 Chloride 104 Carbon Dioxide 27 Anion Gap 6 BUN 7 Creatinine 0.60 L Estim Creat Clear Calc 55 Estimated GFR > 60 Glucose 91 POC Capillary Glucose Calcium 8.9 Phosphorus 3.2
[2024-11-20 12:23] LABS: Hematocrit 27.3 % (37.0-47.0); Hemoglobin 9.1 g/dL (12.0-15.0); Immature Granulocyte Percent A 0.4 % (0-0.5); Lymphocytes Absolute Auto 0.81 K/mm3 (0.9-3.2); Mean Corpuscular HGB Conc 33.3 g/dl (32-36); Mean Corpuscular Hemoglobin 26.8 pg (26-34); Mean Corpuscular Volume 80.5 fl (80-100); Nucleated Red Blood Cells Absolute Auto 0.000 K/mm3 (0.0-0.012); Nucleated Red Blood Cells Perc 0.0 % (0.0-0.2); Platelet Count Result 292 k/mm3 (150-375); Red Blood Count 3.39 M/mm3 (4.2-5.4); White Blood Count 5.6 K/mm3 (4.5-10.0)
[2024-11-20 12:44] LABS: Magnesium 1.7 mg/dL (1.6-2.3)
[2024-11-20 17:26] LABS: Ferritin 120.00 ng/mL (11.1-264)
[2024-11-21] VITALS (9 sets, daily range): BP systolic 120–136; BP diastolic 79–87; PULSE 96–121; RESP 16–20; TEMP 36.3–36.9; O2SAT 96–97
[2024-11-21] MEDS: AMOXICILLIN PO ×3 (05:10→21:16)
[2024-11-21 05:56] LABS: Hematocrit 29.3 % (37.0-47.0); Hemoglobin 9.8 g/dL (12.0-15.0); Immature Granulocyte Percent A 0.6 % (0-0.5); Lymphocytes Absolute Auto 0.87 K/mm3 (0.9-3.2); Mean Corpuscular HGB Conc 33.4 g/dl (32-36); Mean Corpuscular Hemoglobin 26.8 pg (26-34); Mean Corpuscular Volume 80.3 fl (80-100); Nucleated Red Blood Cells Absolute Auto 0.000 K/mm3 (0.0-0.012); Nucleated Red Blood Cells Perc 0.0 % (0.0-0.2); Platelet Count Result 339 k/mm3 (150-375); Red Blood Count 3.65 M/mm3 (4.2-5.4); White Blood Count 5.4 K/mm3 (4.5-10.0)
[2024-11-21 07:15] LABS: Alanine Aminotransferase 11 U/L (6-35); Albumin Level 2.9 g/dL (3.5-5.1); Alkaline Phosphatase 73 U/L (38-126); Anion Gap 7 mmol/L (4-12); Aspartate Amino Transferase 21 U/L (14-36); Bilirubin,Total 0.3 mg/dL (0.2-1.3); Blood Urea Nitrogen 8 mg/dL (7-17); Calcium 9.1 mg/dL (8.4-10.2); Carbon Dioxide 26 mmol/L (22-30); Chloride 104 mmol/L (98-107); Estimated CRCL calculation 70 ml/min; Estimated Glomerular Filt Rate > 60; Glucose 117 mg/dL (65-110); Magnesium 1.8 mg/dL (1.6-2.3); Potassium 4.0 mmol/L (3.4-5.0); Sodium 137 mmol/L (137-145); Total Protein 7.0 g/dL (6.3-8.2)
[2024-11-21 07:26] LABS: Triglycerides 85 mg/dL (<150)
[2024-11-21] MEDS: APIXABAN 5 MG TABLET PO (09:11)
--- NOTE | 2024-11-21 11:13 | P.PNIM_ITS ---
Progress Note: A&P Assessment and Plan (1) ESTEFANÍA (acute kidney injury): Code(s): N17.9 - Acute kidney failure, unspecified Status: Acute (2) Abnormal urinalysis: Code(s): R82.90 - Unspecified abnormal findings in urine Status: Acute (3) Dehydration: Code(s): E86.0 - Dehydration Status: Acute (4) Hypernatremia: Code(s): E87.0 - Hyperosmolality and hypernatremia Status: Acute (5) UTI (urinary tract infection): Code(s): N39.0 - Urinary tract infection, site not specified Status: Acute (6) Decubitus ulcer of sacral region, unstageable: Code(s): L89.150 - Pressure ulcer of sacral region, unstageable Status: Chronic Plan UTI (urinary tract infection): Code(s): N39.0 - Urinary tract infection, site not specified Status: Acute Urine culture grows Enterococcus ampicillin started 11/15, ceftriaxone stopped based on urine culture Starvation, positive ketone in urine, Dehydration,hypernatremia of 156, hypokalemia of 3.1, BUN of 23 and chloride of 116. Received fluid resuscitation on NG/dobhoff today, start tube feedings. Patient need NG tube feeding full long-term life support Discussed with patient's over the phone Decubitus ulcer of sacral region, unstageable: Code(s): L89.150 - Pressure ulcer of sacral region, unstageable Status: Chronic Assessment and Plan: * Consult wound care, appreciate their recommendations * CT scan abdomen pelvis did not appreciate any osteomyelitis or abscess formation related to wound. * Consider surgery consult should wound start changing in appearance. * I48.0 - Paroxysmal atrial fibrillation Status: Chronic Assessment and Plan: * Chronic in nature * Not currently in AFib * on Eliquis NPO now-continue lovenox * Hypertension: Qualifiers: Hypertension type: primary hypertension Qualified Code(s): Essential (primary) hypertension Code(s): I10 - Essential (primary) hypertension Status: Chronic Assessment and Plan: * Continue home medications Adjust medication according to blood pressure Multiple sclerosis: Onset Date: 1997 Code(s): G35 - Multiple sclerosis Status: Chronic Assessment and Plan: * Advanced, suspect end-stage causing complete debility for patient. * Suspect pt is actually having Failure To Thrive at this stage in her MS. * 11/18 goals of care discussion with son BREA. He is not ready for comfort measures for pt but will discuss it with family. * care coordination is aware and following along. Dysphagia: Qualifiers: Dysphagia type: unspecified Qualified Code(s): R13.10 - Dysphagia, unspecified Code(s): R13.10 - Dysphagia, unspecified Status: Acute Assessment and Plan: * Suspect acute on chronic. Patient's son states that he notices she has been pocketing foods in her mouth. They have also been having to spoon feed her her drinks with a thickened wall. Concern for high risk of aspiration. * Speech evaluation ordered for swallow eval * NPO for now with IV fluid hydration Will consult GI/surgery f patient and family agree to accept G tube feeding * Continue PT OT, animal care technician for evaluation and assisting placement Patient has end-stage of multiple sclerosis, patient cannot tolerate diet Discussed with patient's over the phone about patient condition in presents of patient's nurse Kathryn, patient may need a g tube feeding for long- term support on 11/20 I also tried to reach out his son Everardo for goals of care, but could not to reach him today Subjective Date/time seen: 11/21/24 11:13 Interval history: I saw examined patient today, patient was comfortable in the bed, patient is on G-tube feeding, patient has no complaints. Exam Narrative: GENERAL: ill-appearing, in no acute distress. Well-nourished. - EYES: EOMI. Anicteric. - HENT: Moist mucous membranes. NG tube in-situ - LUNGS: Clear to auscultation bilateral ly, no wheezing, rhonchi, or rales. - CARDIOVASCULAR: Regular rate and rhyth m. No murmur. No JVD. - ABDOMEN: Soft, non-tender and non-dist ended. No palpable masses. - EXTREMITIES: No edema. Peripheral puls es 2+. Non-tender. - NEUROLOGIC: Moving all extremity slig htly - PSYCHIATRIC: Awake, Alert and oriented x 3. Appropriate mood and affect. - SKIN: Sacral decubitus ulcer - LYMPH: No cervical lymphadenopathy. Objective Data Vital Signs Vital Signs: Vital Signs - 24 hr 11/20/24 12:00 11/20/24 14:00 11/20/24 16:00 Temperature 97.2 F L Pulse Rate 87 84 81 Respiratory Rate 18 Blood Pressure 131/83 Pulse Oximetry 99 Oxygen Delivery 11/20/24 20:00 11/20/24 20:00 11/20/24 21:49 Temperature 97.9 F Pulse Rate 96 115 H Respiratory Rate 20 Blood Pressure 123/83 Pulse Oximetry Oxygen Delivery Room Air 11/21/24 00:00 11/21/24 04:00 11/21/24 06:00 Temperature 98.4 F Pulse Rate 96 101 H 114 H Respiratory Rate 20 Blood Pressure 136/83 Pulse Oximetry 96 Oxygen Delivery Intake/Output Intake/Output: Intake & Output 11/18/24 11/19/24 11/20/24 11/21/24 23:59 23:59 23:59 23:59 Intake Total 1650.0 315.8 0 Output Total 1875 1150 1100 1505 Balance -225.0 -834.2 -1100 -1505 Meds/Results Medications: Active Medications Generic Name Dose Route Start Last Admin Trade Name Freq PRN Reason Stop Dose Admin Acetaminophen 650 mg 11/12/24 21:41 Acetaminophen 325 Mg Tablet PO Q4H PRN Mild Pain (1-3) or Fever Amoxicillin 500 mg 11/19/24 08:00 11/21/24 05:10 Amoxicillin Suspension 500 Mg/6.25 Ml Ud PO 11/21/24 22:01 500 mg Q8HR APRYL Administration Apixaban 5 mg 11/19/24 09:00 11/21/24 09:11 Apixaban 5 Mg Tablet PO 5 mg Q12HR APRYL Administration Dextrose 12.5 gm 11/19/24 00:16 Dextrose 50% 25 Gm/50 Ml Syringe IV PUSH PRN PRN Hypoglycemia Protocol Glucagon 1 mg 11/19/24 00:16 Glucagon For Inj 1 Mg Vial IM PRN PRN Hypoglycemia Protocol Glucose 15 gm 11/19/24 00:16 Glucose Oral Gel 15 Gm Of Glucse In 37.5 Gm Tube PO PRN PRN Hypoglycemia Protocol Hydralazine HCl 10 mg 11/12/24 22:28 Hydralazine Hcl 20 Mg/Ml Vial IV PUSH Q8H PRN Blood Pressure - High Hydromorphone HCl 0.25 mg 11/15/24 14:45 Hydromorphone Hcl Inj (*Crx) 2 Mg/Ml Vial IV PUSH Q3H PRN Pain Rated 7-10 Amino Acids/Electrolytes/Dextrose 1,000 mls @ 80 mls/hr 11/16/24 12:00 11/18/24 06:44 Clinimix E 4.25%/5% Solution IV CONT 80 mls/hr .[id number] [facility] Administration Protocol Fat Emulsion Intravenous 250 mls @ 20.833 mls/hr 11/16/24 12:00 11/18/24 05:55 Lipids 20% IVPB Infused Q24H APRYL Infusion Insulin Aspart 2 - 5 units 11/16/24 12:00 11/21/24 06:00 Insulin Aspart (*Bkc) 100 Units/Ml SUB-Q Not Given Q6HR [facility] Protocol Ondansetron HCl 4 mg 11/12/24 21:41 Ondansetron Inj 4 Mg/2 Ml Vial IV PUSH Q4H PRN Nausea Radiology Results: ITS Impressions Head CT 11/12/24 20:46 IMPRESSION: No acute intracranial findings. Abdomen/Pelvis CT 11/12/24 21:13 IMPRESSION: 1. Wound is seen in the area of the sacrum with no definite collection. Surrounding fat stranding is seen. 2. No evidence of appendicitis, diverticulitis or intestinal obstruction. Labs Labs: Laboratory Results - last 24 hr 11/20/24 11/20/24 11/20/24 05:47 11:38 18:36 WBC 5.6 RBC 3.39 L Hgb 9.1 L Hct 27.3 L MCV 80.5 MCH 26.8 MCHC 33.3 RDW 18.6 H Plt Count 292 MPV 10.7 H Immature Gran % (Auto) 0.4 Neut % (Auto) 69.4 Lymph % (Auto) 14.5 L [place] % (Auto) 10.9 H Eos % (Auto) 3.9 Baso % (Auto) 0.9 Lymph # (Auto) 0.81 L [place] # (Auto) 0.6 Eos # (Auto) 0.2 Baso # (Auto) 0.1 Abs Immat Gran (auto) 0.02 Absolute Neuts (auto) 3.9 Absolute Nucleated RBC 0.000 Nucleated RBC % 0.0 Sodium Potassium Chloride Carbon Dioxide Anion Gap BUN Creatinine Estim Creat Clear Calc Estimated GFR Glucose POC Capillary Glucose 103 112 H Calcium Phosphorus Magnesium 1.7 Ferritin 120.00 Total Bilirubin AST ALT Alkaline Phosphatase Total Protein Albumin Triglycerides 11/20/24 11/21/24 11/21/24 23:26 05:29 05:30 WBC 5.4 RBC 3.65 L Hgb 9.8 L Hct 29.3 L MCV 80.3 MCH 26.8 MCHC 33.4 RDW 18.5 H Plt Count 339 MPV 10.7 H Immature Gran % (Auto) 0.6 H Neut % (Auto) 68.7 Lymph % (Auto) 16.3 L [place] % (Auto) 10.5 H Eos % (Auto) 3.2 Baso % (Auto) 0.7 Lymph # (Auto) 0.87 L [place] # (Auto) 0.6 Eos # (Auto) 0.2 Baso # (Auto) 0.0 Abs Immat Gran (auto) 0.03 Absolute Neuts (auto) 3.7 Absolute Nucleated RBC 0.000 Nucleated RBC % 0.0 Sodium 137 Potassium 4.0 Chloride 104 Carbon Dioxide 26 Anion Gap 7 BUN 8 Creatinine 0.56 L Estim Creat Clear Calc 70 Estimated GFR > 60 Glucose 117 H POC Capillary Glucose 94 125 H Calcium 9.1 Phosphorus 3.9 Magnesium 1.8 Ferritin Total Bilirubin 0.3 AST 21 ALT 11 Alkaline Phosphatase 73 Total Protein 7.0 Albumin 2.9 L Triglycerides 85
--- NOTE | 2024-11-21 14:57 | P.CONGI_ITS ---
Assessment and Plan Assessment and plan (1) Dysphagia: Qualifiers: Dysphagia type: unspecified Qualified Code(s): R13.10 - Dysphagia, unspecified Code(s): R13.10 - Dysphagia, unspecified Status: Acute Assessment and Plan: The patient is a good candidate for PEG placement, however Eliquis administration has been continuous up until this morning. Will wait for least 3 days of discontinuation, therefore the PEG will be placed this following Monday. GI Consult Note Consult date/time: 11/21/24 14:57 Reason for consult: Peg placement HPI: Jolene Gonzalez is a 64 year old female with a longstanding history of advanced multiple sclerosis and oropharyngeal dysphagia. She is currently depending on nasogastric tube for feeding. He has chronic starvation and a decubitus ulcer. Review of Systems 2 Review of Systems: All systems reviewed & are unremarkable except as noted in HPI and below PMFSH Past Medical History Medical History (Updated 11/12/24 @ 22:25 by TRINY Myles) Increased anion gap metabolic acidosis Electrolyte abnormality ESTEFANÍA (acute kidney injury) Venous insufficiency of lower extremity Scoliosis History of ectopic Paroxysmal atrial fibrillation Multiple sclerosis (1997) Hypertension Cellulitis Of the left lower extreme Surgical History Surgical History History of 2 sections Family History Family History (Updated 11/13/24 @ 00:23 by Bartolo Sampson RN) Father CAD (coronary artery disease) Hypertension Cerebrovascular accident Mother Blood clot due to device, implant, or graft Social History Social History Social History: The patient is lives with her son for the last 3 years until her recent hospitalization in May at which time she was discharged to [facility] for [facility]hab. She raised 2 sons. She is currently living with her oldest son. At baseline the patient can report the walk. Code status: Full code Surrogate decision maker: Olivier Gonzalez (son) Smoking status: Never smoker Second hand tobacco smoke exposure: No Alcohol intake: never Substance use: never Substance use type: does not use Do You Feel Safe in your Home?: No Lack of Transportation: No Lack of Food: Never True Current Housing: I Have Housing Concerned About Future Housing: No Difficulty Paying Gas/Electric Bills: No Difficulty Paying for Meds: No Currently Unemployed: No Education: Bachelor's Degree Difficulty w/ Childcare or Family Care: No Spiritual care concerns: No Meds Home Medications and Allergies Home Medications ?Medication ?Instructions ?Recorded ?Confirmed ?Type dimethyl fumarate 240 mg 240 mg PO BID #180 caps 05/13/24 11/12/24 Rx capsule,delayed release (Tecfidera) valacyclovir 500 mg tablet 1,000 mg (2 x 500 mg) PO Q12HR #17 07/02/24 11/12/24 Rx (Valtrex) tabs polyethylene glycol 3350 17 4 g PO DAILY 10/23/24 11/12/24 History gram/dose oral powder (ClearLax) apixaban 5 mg tablet (Eliquis) 5 mg PO Q12HR #60 tabs 10/29/24 11/12/24 Rx Allergies Allergy/AdvReac Type Severity Reaction Status Date / Time Seasonal Allergies Allergy Mild itchiness Uncoded 11/13/24 02:12 Vital Signs Vital Signs - 24 hr 11/20/24 16:00 11/20/24 20:00 11/20/24 20:00 Temperature Pulse Rate 81 96 Respiratory Rate Blood Pressure Pulse Oximetry Oxygen Delivery Room Air 11/20/24 21:49 11/21/24 00:00 11/21/24 04:00 Temperature 97.9 F Pulse Rate 115 H 96 101 H Respiratory Rate 20 Blood Pressure 123/83 Pulse Oximetry Oxygen Delivery 11/21/24 06:00 11/21/24 08:00 Temperature 98.4 F Pulse Rate 114 H Respiratory Rate 20 Blood Pressure 136/83 Pulse Oximetry 96 Oxygen Delivery Room Air Exam 2 Narrative: GENERAL: ill-appearing, in no acute distress. Well-nourished. - EYES: EOMI. Anicteric. - HENT: Moist mucous membranes. NG tube in-situ - LUNGS: Clear to auscultation bilateral ly, no wheezing, rhonchi, or rales. - CARDIOVASCULAR: Regular rate and rhyth m. No murmur. No JVD. - ABDOMEN: Soft, non-tender and non-dist ended. No palpable masses. - EXTREMITIES: No edema. Peripheral puls es 2+. Non-tender. - NEUROLOGIC: Moving all extremity slig htly - PSYCHIATRIC: Awake, Alert and oriented x 3. Appropriate mood and affect. - SKIN: Sacral decubitus ulcer - LYMPH: No cervical lymphadenopathy. Results Labs 11/21/24 05:30 11/21/24 05:30 Labs: Short CBC 11/21/24 Range/Units 05:30 WBC 5.4 (4.5-10.0) K/mm3 Hgb 9.8 L (12.0-15.0) g/dL Hct 29.3 L (37.0-47.0) % Plt Count 339 (150-375) k/mm3 BMP 11/21/24 05:30 Sodium 137 Potassium 4.0 Chloride 104 Carbon Dioxide 26 BUN 8 Creatinine 0.56 L Glucose 117 H Calcium 9.1 Liver Function 11/21/24 Range/Units 05:30 Total Bilirubin 0.3 (0.2-1.3) mg/dL AST 21 (14-36) U/L ALT 11 (6-35) U/L Alkaline Phosphatase 73 (38-126) U/L Albumin 2.9 L (3.5-5.1) g/dL
[2024-11-22] VITALS: PULSE 120
[2024-11-22 04:00] VITALS: PULSE 113
[2024-11-22 06:00] VITALS: BP 115/64; PULSE 114; RESP 20; TEMP 36.1; O2SAT 100
[2024-11-22 07:06] LABS: Anion Gap 9 mmol/L (4-12); Blood Urea Nitrogen 11 mg/dL (7-17); Calcium 9.1 mg/dL (8.4-10.2); Carbon Dioxide 27 mmol/L (22-30); Chloride 102 mmol/L (98-107); Estimated CRCL calculation 63 ml/min; Estimated Glomerular Filt Rate > 60; Glucose 104 mg/dL (65-110); Potassium 3.8 mmol/L (3.4-5.0); Sodium 138 mmol/L (137-145)
[2024-11-22 08:00] VITALS: PULSE 88
--- NOTE | 2024-11-22 08:40 | P.PNIM_ITS ---
Progress Note: A&P Assessment and Plan (1) ESTEFANÍA (acute kidney injury): Code(s): N17.9 - Acute kidney failure, unspecified Status: Acute (2) Abnormal urinalysis: Code(s): R82.90 - Unspecified abnormal findings in urine Status: Acute (3) Dehydration: Code(s): E86.0 - Dehydration Status: Acute (4) Hypernatremia: Code(s): E87.0 - Hyperosmolality and hypernatremia Status: Acute (5) UTI (urinary tract infection): Code(s): N39.0 - Urinary tract infection, site not specified Status: Acute (6) Decubitus ulcer of sacral region, unstageable: Code(s): L89.150 - Pressure ulcer of sacral region, unstageable Status: Chronic Plan UTI (urinary tract infection): Code(s): N39.0 - Urinary tract infection, site not specified Status: Acute Urine culture grows Enterococcus ampicillin started 11/15, ceftriaxone stopped based on urine culture Completed antibiotics treatment Starvation, positive ketone in urine, Dehydration,hypernatremia of 156, hypokalemia of 3.1, BUN of 23 and chloride of 116. Received fluid resuscitation on NG/dobhoff today, start tube feedings. Patient need NG tube feeding full long-term life support Discussed with patient's over the phone Decubitus ulcer of sacral region, unstageable: Code(s): L89.150 - Pressure ulcer of sacral region, unstageable Status: Chronic Assessment and Plan: Consult wound care, appreciate their recommendations CT scan abdomen pelvis did not appreciate any osteomyelitis or abscess formation related to wound. Consider surgery consult should wound start changing in appearance. * I48.0 - Paroxysmal atrial fibrillation Status: Chronic Assessment and Plan: Hold Eliquis NPO now-continue lovenox * Hypertension: Qualifiers: Hypertension type: primary hypertension Qualified Code(s): Essential (primary) hypertension Code(s): I10 - Essential (primary) hypertension Status: Chronic Assessment and Plan: * Continue home medications Adjust medication according to blood pressure Multiple sclerosis: Onset Date: 1997 Code(s): G35 - Multiple sclerosis Status: Chronic Assessment and Plan: Dysphagia: Qualifiers: Dysphagia type: unspecified Qualified Code(s): R13.10 - Dysphagia, unspecified Code(s): R13.10 - Dysphagia, unspecified Status: Acute Assessment and Plan: Patient's son states that he notices she has been pocketing foods in her mouth. Concern for high risk of aspiration. Speech evaluation ordered for swallow eval Patient is on NG tube feeds Patient has end-stage of multiple sclerosis, patient cannot tolerate diet Discussed with patient's and son They agree to proceed PEG tube feeding GI evaluated patient, schedule PEG tube placement on Monday Subjective Date/time seen: 11/22/24 08:40 Interval history: I saw examined patient today, patient was comfortable in the bed, patient is on G-tube feeding, patient has no complaints. Patient was afebrile, blood pressure stable Exam Narrative: GENERAL: ill-appearing, in no acute distress. Well-nourished. - EYES: EOMI. Anicteric. - HENT: Moist mucous membranes. NG tube in-situ - LUNGS: Clear to auscultation bilateral ly, no wheezing, rhonchi, or rales. - CARDIOVASCULAR: Regular rate and rhyth m. No murmur. No JVD. - ABDOMEN: Soft, non-tender and non-dist ended. No palpable masses. - EXTREMITIES: No edema. Peripheral puls es 2+. Non-tender. - NEUROLOGIC: Moving all extremity slig htly - PSYCHIATRIC: Awake, Alert and oriented x 3. Appropriate mood and affect. - SKIN: Sacral decubitus ulcer - LYMPH: No cervical lymphadenopathy. Objective Data Vital Signs Vital Signs: Vital Signs - 24 hr 11/21/24 12:00 11/21/24 14:00 11/21/24 16:00 Temperature 98 F Pulse Rate 117 H 103 H 112 H Respiratory Rate 20 Blood Pressure 124/87 Pulse Oximetry 96 11/21/24 20:00 11/21/24 22:00 11/22/24 00:00 Temperature 97.3 F L Pulse Rate 117 H 121 H 120 H Respiratory Rate 16 Blood Pressure 120/79 Pulse Oximetry 97 11/22/24 04:00 11/22/24 06:00 Temperature 97.0 F L Pulse Rate 113 H 114 H Respiratory Rate 20 Blood Pressure 115/64 Pulse Oximetry 100 Intake/Output Intake/Output: Intake & Output 11/19/24 11/20/24 11/21/24 11/22/24 23:59 23:59 23:59 23:59 Intake Total 315.8 0 0 Output Total 1150 1100 2503 600 Balance -834.2 -1100 -2505 -600 Meds/Results Medications: Active Medications Generic Name Dose Route Start Last Admin Trade Name Freq PRN Reason Stop Dose Admin Acetaminophen 650 mg 11/12/24 21:41 Acetaminophen 325 Mg Tablet PO Q4H PRN Mild Pain (1-3) or Fever Apixaban 5 mg 11/19/24 09:00 11/21/24 09:11 Apixaban 5 Mg Tablet PO 5 mg Q12HR APRYL Administration Dextrose 12.5 gm 11/19/24 00:16 Dextrose 50% 25 Gm/50 Ml Syringe IV PUSH PRN PRN Hypoglycemia Protocol Glucagon 1 mg 11/19/24 00:16 Glucagon For Inj 1 Mg Vial IM PRN PRN Hypoglycemia Protocol Glucose 15 gm 11/19/24 00:16 Glucose Oral Gel 15 Gm Of Glucse In 37.5 Gm Tube PO PRN PRN Hypoglycemia Protocol Hydralazine HCl 10 mg 11/12/24 22:28 Hydralazine Hcl 20 Mg/Ml Vial IV PUSH Q8H PRN Blood Pressure - High Hydromorphone HCl 0.25 mg 11/15/24 14:45 Hydromorphone Hcl Inj (*Crx) 2 Mg/Ml Vial IV PUSH Q3H PRN Pain Rated 7-10 Amino Acids/Electrolytes/Dextrose 1,000 mls @ 80 mls/hr 11/16/24 12:00 11/18/24 06:44 Clinimix E 4.25%/5% Solution IV CONT 80 mls/hr .[id number] APRYL Administration Protocol Fat Emulsion Intravenous 250 mls @ 20.833 mls/hr 11/16/24 12:00 11/18/24 05:55 Lipids 20% IVPB Infused Q24H APRYL Infusion Insulin Aspart 2 - 5 units 11/16/24 12:00 11/22/24 05:45 Insulin Aspart (*Bkc) 100 Units/Ml SUB-Q Not Given Q6HR [facility] Protocol Ondansetron HCl 4 mg 11/12/24 21:41 Ondansetron Inj 4 Mg/2 Ml Vial IV PUSH Q4H PRN Nausea Radiology Results: ITS Impressions Head CT 11/12/24 20:46 IMPRESSION: No acute intracranial findings. Abdomen/Pelvis CT 11/12/24 21:13 IMPRESSION: 1. Wound is seen in the area of the sacrum with no definite collection. Surrounding fat stranding is seen. 2. No evidence of appendicitis, diverticulitis or intestinal obstruction. Labs Labs: Laboratory Results - last 24 hr 11/21/24 11/22/24 11/22/24 12:00 00:17 05:37 Sodium Potassium Chloride Carbon Dioxide Anion Gap BUN Creatinine Estim Creat Clear Calc Estimated GFR Glucose POC Capillary Glucose 103 118 H 99 Calcium Phosphorus 11/22/24 05:42 Sodium 138 Potassium 3.8 Chloride 102 Carbon Dioxide 27 Anion Gap 9 BUN 11 Creatinine 0.63 L Estim Creat Clear Calc 63 Estimated GFR > 60 Glucose 104 POC Capillary Glucose Calcium 9.1 Phosphorus 3.8
--- NOTE | 2024-11-22 10:54 | PCNFU ---
Nutrition Follow-Up Complete: Severe protein calorie malnutrition related to inadequate energy intake as evidenced by a -12% wt loss x 1 month and NFPE findings for severe subcutaneous fat loss (cheeks, bicep) and severe muscle wasting (methodist, clavicle, shoulder). Meet estimated needs - Goal is being met with NG tube feedings Goal: Pt current nutrition is NG tube feeding: Jevity 1.5 @ 40 ml with flushes 100 ml q 4 h. Nutrition recommendation: Add Ryan BID to flushes for additional 90 kcal and 2.5 g protein each with arginine and glutamine for wound support Last recorded weight is 52.2 kg. Bowel Motility: +1 BM 11/22 Labs Reviewed: Cre 0.63 Meds Noted: Saritha Saavedra Skin: Stage IV buttocks Additional Notes: Continue with current orders. Jevity 1.5 @ 40 ml/h provides 1153 kcal, 56 g protein, 670 ml free water. Flush 100 ml q 4 hours for total water 1270 ml/d. Adequate for needs. Meets needs @ 25 kcal/kg, 1.1 g protein/kg. Adding Ryan BID for wounds. Pt to get PEG on Monday. Monitor diet orders, plan of care, wt, labs. Follow up in 1 day.
[2024-11-22 11:44] LABS: Hematocrit 28.4 % (37.0-47.0); Hemoglobin 9.5 g/dL (12.0-15.0); Immature Granulocyte Percent A 0.6 % (0-0.5); Lymphocytes Absolute Auto 0.92 K/mm3 (0.9-3.2); Mean Corpuscular HGB Conc 33.5 g/dl (32-36); Mean Corpuscular Hemoglobin 26.9 pg (26-34); Mean Corpuscular Volume 80.5 fl (80-100); Nucleated Red Blood Cells Absolute Auto 0.000 K/mm3 (0.0-0.012); Nucleated Red Blood Cells Perc 0.0 % (0.0-0.2); Platelet Count Result 327 k/mm3 (150-375); Red Blood Count 3.53 M/mm3 (4.2-5.4); White Blood Count 7.1 K/mm3 (4.5-10.0)
[2024-11-22 13:01] LABS: Magnesium 1.9 mg/dL (1.6-2.3)
[2024-11-22 14:00] VITALS: BP 120/75; PULSE 98; RESP 16; O2SAT 97
[2024-11-22] MEDS: HYDROmorphone HCL INJ (*CRX) 2 MG/ML VIAL 0.25 MG IV PUSH (21:10)
[2024-11-22 21:16] VITALS: BP 115/64; PULSE 102; RESP 18; TEMP 36.1; O2SAT 100
[2024-11-23] MEDS: HYDROmorphone HCL INJ (*CRX) 2 MG/ML VIAL 0.25 MG IV PUSH (05:07)
[2024-11-23 06:00] VITALS: BP 119/63; PULSE 100; RESP 16; TEMP 36.7; O2SAT 100
[2024-11-23 06:52] LABS: Anion Gap 7 mmol/L (4-12); Blood Urea Nitrogen 15 mg/dL (7-17); Calcium 9.2 mg/dL (8.4-10.2); Carbon Dioxide 29 mmol/L (22-30); Chloride 104 mmol/L (98-107); Estimated CRCL calculation 61 ml/min; Estimated Glomerular Filt Rate > 60; Glucose 105 mg/dL (65-110); Potassium 4.1 mmol/L (3.4-5.0); Sodium 140 mmol/L (137-145); Triglycerides 79 mg/dL (<150)
[2024-11-23 08:00] VITALS: O2SAT 93
--- NOTE | 2024-11-23 10:26 | P.PNGI_ITS ---
Progress Note: A&P Assessment and Plan (1) Dysphagia: Qualifiers: Dysphagia type: unspecified Qualified Code(s): R13.10 - Dysphagia, unspecified Code(s): R13.10 - Dysphagia, unspecified Status: Acute Assessment and Plan: plan G-tube placement Monday eliquis is on hold in the meantime tube feeding using [facility] (2) Malnutrition: Code(s): E46 - Unspecified protein-calorie malnutrition Status: Acute (3) Anticoagulated by anticoagulation treatment: Code(s): Z79.01 - retirement (current) use of anticoagulants Status: Chronic Assessment and Plan: eliquis on hold (4) Paroxysmal atrial fibrillation: Code(s): I48.0 - Paroxysmal atrial fibrillation Status: Chronic (5) Multiple sclerosis: Onset Date: 1997 Code(s): G35 - Multiple sclerosis Status: Chronic (6) Chronic anemia: Code(s): D64.9 - Anemia, unspecified Status: Acute Assessment and Plan: stable Subjective Date/time seen: 11/23/24 10:26 Interval history: no changes tolerating tube feeding at 40 ml/h by [facility] Review of Systems Review of Systems: All systems reviewed & are unremarkable except as noted in HPI and below Exam Narrative: GENERAL: ill-appearing, in no acute distress. Well-nourished. - EYES: EOMI. Anicteric. - HENT: Moist mucous membranes. NG tube in-situ - LUNGS: Clear to auscultation bilateral ly, no wheezing, rhonchi, or rales. - CARDIOVASCULAR: Regular rate and rhyth m. No murmur. No JVD. - ABDOMEN: Soft, non-tender and non-dist ended. No palpable masses. - EXTREMITIES: No edema. Peripheral puls es 2+. Non-tender. - NEUROLOGIC: Moving all extremity slig htly - PSYCHIATRIC: Awake, Alert and oriented x 3. Appropriate mood and affect. - SKIN: Sacral decubitus ulcer - LYMPH: No cervical lymphadenopathy. Objective Data Vital Signs Vital Signs: Vital Signs - 24 hr 11/22/24 14:00 11/22/24 21:16 11/23/24 06:00 Temperature 97.0 F L 98.0 F Pulse Rate 98 102 H 100 Respiratory Rate 16 18 16 Blood Pressure 120/75 115/64 119/63 Pulse Oximetry 97 100 100 Oxygen Delivery 11/23/24 08:00 Temperature Pulse Rate Respiratory Rate Blood Pressure Pulse Oximetry 93 Oxygen Delivery Room Air Intake/Output Intake/Output: Intake & Output 11/20/24 11/21/24 11/22/24 11/23/24 23:59 23:59 23:59 23:59 Intake Total 0 895 499 Output Total 1100 2505 1200 275 Balance -0372 -0483 -305 224 Meds/Results Medications: Active Medications Generic Name Dose Route Start Last Admin Trade Name Freq PRN Reason Stop Dose Admin Acetaminophen 650 mg 11/12/24 21:41 Acetaminophen 325 Mg Tablet PO Q4H PRN Mild Pain (1-3) or Fever Apixaban 5 mg 11/19/24 09:00 11/21/24 09:11 Apixaban 5 Mg Tablet PO 5 mg Q12HR APRYL Administration Dextrose 12.5 gm 11/19/24 00:16 Dextrose 50% 25 Gm/50 Ml Syringe IV PUSH PRN PRN Hypoglycemia Protocol Glucagon 1 mg 11/19/24 00:16 Glucagon For Inj 1 Mg Vial IM PRN PRN Hypoglycemia Protocol Glucose 15 gm 11/19/24 00:16 Glucose Oral Gel 15 Gm Of Glucse In 37.5 Gm Tube PO PRN PRN Hypoglycemia Protocol Hydralazine HCl 10 mg 11/12/24 22:28 Hydralazine Hcl 20 Mg/Ml Vial IV PUSH Q8H PRN Blood Pressure - High Hydromorphone HCl 0.25 mg 11/15/24 14:45 11/23/24 05:07 Hydromorphone Hcl Inj (*Crx) 2 Mg/Ml Vial IV PUSH 0.25 mg Q3H PRN Administration Pain Rated 7-10 Amino Acids/Electrolytes/Dextrose 1,000 mls @ 80 mls/hr 11/16/24 12:00 11/18/24 06:44 Clinimix E 4.25%/5% Solution IV CONT 80 mls/hr .[id number] APRYL Administration Protocol Fat Emulsion Intravenous 250 mls @ 20.833 mls/hr 11/16/24 12:00 11/18/24 05:55 Lipids 20% IVPB Infused Q24H APRYL Infusion Insulin Aspart 2 - 5 units 11/16/24 12:00 11/23/24 06:31 Insulin Aspart (*Bkc) 100 Units/Ml SUB-Q Not Given Q6HR [facility] Protocol Ondansetron HCl 4 mg 11/12/24 21:41 Ondansetron Inj 4 Mg/2 Ml Vial IV PUSH Q4H PRN Nausea Radiology Results: ITS Impressions Head CT 11/12/24 20:46 IMPRESSION: No acute intracranial findings. Abdomen/Pelvis CT 11/12/24 21:13 IMPRESSION: 1. Wound is seen in the area of the sacrum with no definite collection. Surrounding fat stranding is seen. 2. No evidence of appendicitis, diverticulitis or intestinal obstruction. Labs Labs: Laboratory Results - last 24 hr 11/22/24 11/22/24 11/22/24 05:30 05:39 11:46 WBC 7.1 RBC 3.53 L Hgb 9.5 L Hct 28.4 L MCV 80.5 MCH 26.9 MCHC 33.5 RDW 18.7 H Plt Count 327 MPV 10.4 Immature Gran % (Auto) 0.6 H Neut % (Auto) 70.6 Lymph % (Auto) 12.9 L [place] % (Auto) 12.6 H Eos % (Auto) 2.7 Baso % (Auto) 0.6 Lymph # (Auto) 0.92 [place] # (Auto) 0.9 H Eos # (Auto) 0.2 Baso # (Auto) 0.0 Abs Immat Gran (auto) 0.04 H Absolute Neuts (auto) 5.0 Absolute Nucleated RBC 0.000 Nucleated RBC % 0.0 Sodium Potassium Chloride Carbon Dioxide Anion Gap BUN Creatinine Estim Creat Clear Calc Estimated GFR Glucose POC Capillary Glucose 106 H Calcium Phosphorus Magnesium 1.9 Triglycerides 11/23/24 11/23/24 11/23/24 00:14 05:59 06:03 WBC RBC Hgb Hct MCV MCH MCHC RDW Plt Count MPV Immature Gran % (Auto) Neut % (Auto) Lymph % (Auto) [place] % (Auto) Eos % (Auto) Baso % (Auto) Lymph # (Auto) [place] # (Auto) Eos # (Auto) Baso # (Auto) Abs Immat Gran (auto) Absolute Neuts (auto) Absolute Nucleated RBC Nucleated RBC % Sodium 140 Potassium 4.1 Chloride 104 Carbon Dioxide 29 Anion Gap 7 BUN 15 Creatinine 0.65 L Estim Creat Clear Calc 61 Estimated GFR > 60 Glucose 105 POC Capillary Glucose 113 H 102 Calcium 9.2 Phosphorus 4.0 Magnesium Triglycerides 79
--- NOTE | 2024-11-23 11:34 | P.PNIM_ITS ---
Progress Note: A&P Assessment and Plan (1) ESTEFANÍA (acute kidney injury): Code(s): N17.9 - Acute kidney failure, unspecified Status: Acute (2) Abnormal urinalysis: Code(s): R82.90 - Unspecified abnormal findings in urine Status: Acute (3) Dehydration: Code(s): E86.0 - Dehydration Status: Acute (4) Hypernatremia: Code(s): E87.0 - Hyperosmolality and hypernatremia Status: Acute (5) UTI (urinary tract infection): Code(s): N39.0 - Urinary tract infection, site not specified Status: Acute (6) Decubitus ulcer of sacral region, unstageable: Code(s): L89.150 - Pressure ulcer of sacral region, unstageable Status: Chronic Plan UTI (urinary tract infection): Code(s): N39.0 - Urinary tract infection, site not specified Status: Acute Urine culture grows Enterococcus ampicillin started 11/15, ceftriaxone stopped based on urine culture Completed antibiotics treatment Starvation, positive ketone in urine, Dehydration,hypernatremia of 156, hypokalemia of 3.1, BUN of 23 and chloride of 116. Received fluid resuscitation on NG/dobhoff today, start tube feedings. Patient need NG tube feeding full long-term life support Discussed with patient's over the phone Decubitus ulcer of sacral region, unstageable: Code(s): L89.150 - Pressure ulcer of sacral region, unstageable Status: Chronic Assessment and Plan: Consult wound care, appreciate their recommendations CT scan abdomen pelvis did not appreciate any osteomyelitis or abscess formation related to wound. Consider surgery consult should wound start changing in appearance. * I48.0 - Paroxysmal atrial fibrillation Status: Chronic Assessment and Plan: Hold Eliquis NPO now-continue lovenox * Hypertension: Qualifiers: Hypertension type: primary hypertension Qualified Code(s): Essential (primary) hypertension Code(s): I10 - Essential (primary) hypertension Status: Chronic Assessment and Plan: * Continue home medications Adjust medication according to blood pressure Multiple sclerosis: Onset Date: 1997 Code(s): G35 - Multiple sclerosis Status: Chronic Assessment and Plan: Dysphagia: Qualifiers: Dysphagia type: unspecified Qualified Code(s): R13.10 - Dysphagia, unspecified Code(s): R13.10 - Dysphagia, unspecified Status: Acute Assessment and Plan: Patient's son states that he notices she has been pocketing foods in her mouth. Concern for high risk of aspiration. Speech evaluation ordered for swallow eval Patient is on NG tube feeds Patient has end-stage of multiple sclerosis, patient cannot tolerate diet Discussed with patient's and son They agree to proceed PEG tube feeding GI evaluated patient, schedule PEG tube placement on Monday Subjective Date/time seen: 11/23/24 11:34 Interval history: I saw examined patient today, no new issue even overnight. Patient was comfortable in the bed, patient is on G-tube feeding, patient has no complaints. Patient was afebrile, blood pressure stable Exam Narrative: GENERAL: ill-appearing, in no acute distress. Well-nourished. - EYES: EOMI. Anicteric. - HENT: Moist mucous membranes. NG tube in-situ - LUNGS: Clear to auscultation bilateral ly, no wheezing, rhonchi, or rales. - CARDIOVASCULAR: Regular rate and rhyth m. No murmur. No JVD. - ABDOMEN: Soft, non-tender and non-dist ended. No palpable masses. - EXTREMITIES: No edema. Peripheral puls es 2+. Non-tender. - NEUROLOGIC: Moving all extremity slig htly - PSYCHIATRIC: Awake, Alert and oriented x 3. Appropriate mood and affect. - SKIN: Sacral decubitus ulcer - LYMPH: No cervical lymphadenopathy. Objective Data Vital Signs Vital Signs: Vital Signs - 24 hr 11/22/24 14:00 11/22/24 21:16 11/23/24 06:00 Temperature 97.0 F L 98.0 F Pulse Rate 98 102 H 100 Respiratory Rate 16 18 16 Blood Pressure 120/75 115/64 119/63 Pulse Oximetry 97 100 100 Oxygen Delivery 11/23/24 08:00 Temperature Pulse Rate Respiratory Rate Blood Pressure Pulse Oximetry 93 Oxygen Delivery Room Air Intake/Output Intake/Output: Intake & Output 11/20/24 11/21/24 11/22/24 11/23/24 23:59 23:59 23:59 23:59 Intake Total 0 895 499 Output Total 1100 2505 8317 275 Balance -6560 -1969 -305 224 Meds/Results Medications: Active Medications Generic Name Dose Route Start Last Admin Trade Name Freq PRN Reason Stop Dose Admin Acetaminophen 650 mg 11/12/24 21:41 Acetaminophen 325 Mg Tablet PO Q4H PRN Mild Pain (1-3) or Fever Apixaban 5 mg 11/19/24 09:00 11/21/24 09:11 Apixaban 5 Mg Tablet PO 5 mg Q12HR APRYL Administration Dextrose 12.5 gm 11/19/24 00:16 Dextrose 50% 25 Gm/50 Ml Syringe IV PUSH PRN PRN Hypoglycemia Protocol Glucagon 1 mg 11/19/24 00:16 Glucagon For Inj 1 Mg Vial IM PRN PRN Hypoglycemia Protocol Glucose 15 gm 11/19/24 00:16 Glucose Oral Gel 15 Gm Of Glucse In 37.5 Gm Tube PO PRN PRN Hypoglycemia Protocol Hydralazine HCl 10 mg 11/12/24 22:28 Hydralazine Hcl 20 Mg/Ml Vial IV PUSH Q8H PRN Blood Pressure - High Hydromorphone HCl 0.25 mg 11/15/24 14:45 11/23/24 05:07 Hydromorphone Hcl Inj (*Crx) 2 Mg/Ml Vial IV PUSH 0.25 mg Q3H PRN Administration Pain Rated 7-10 Amino Acids/Electrolytes/Dextrose 1,000 mls @ 80 mls/hr 11/16/24 12:00 11/18/24 06:44 Clinimix E 4.25%/5% Solution IV CONT 80 mls/hr .[id number] APRYL Administration Protocol Fat Emulsion Intravenous 250 mls @ 20.833 mls/hr 11/16/24 12:00 11/18/24 05:55 Lipids 20% IVPB Infused Q24H [facility] Infusion Insulin Aspart 2 - 5 units 11/16/24 12:00 11/23/24 06:31 Insulin Aspart (*Bkc) 100 Units/Ml SUB-Q Not Given Q6HR [facility] Protocol Ondansetron HCl 4 mg 11/12/24 21:41 Ondansetron Inj 4 Mg/2 Ml Vial IV PUSH Q4H PRN Nausea Radiology Results: ITS Impressions Head CT 11/12/24 20:46 IMPRESSION: No acute intracranial findings. Abdomen/Pelvis CT 11/12/24 21:13 IMPRESSION: 1. Wound is seen in the area of the sacrum with no definite collection. Surrounding fat stranding is seen. 2. No evidence of appendicitis, diverticulitis or intestinal obstruction. Labs Labs: Laboratory Results - last 24 hr 11/22/24 11/22/24 11/22/24 05:30 05:39 11:46 WBC 7.1 RBC 3.53 L Hgb 9.5 L Hct 28.4 L MCV 80.5 MCH 26.9 MCHC 33.5 RDW 18.7 H Plt Count 327 MPV 10.4 Immature Gran % (Auto) 0.6 H Neut % (Auto) 70.6 Lymph % (Auto) 12.9 L [place] % (Auto) 12.6 H Eos % (Auto) 2.7 Baso % (Auto) 0.6 Lymph # (Auto) 0.92 [place] # (Auto) 0.9 H Eos # (Auto) 0.2 Baso # (Auto) 0.0 Abs Immat Gran (auto) 0.04 H Absolute Neuts (auto) 5.0 Absolute Nucleated RBC 0.000 Nucleated RBC % 0.0 Sodium Potassium Chloride Carbon Dioxide Anion Gap BUN Creatinine Estim Creat Clear Calc Estimated GFR Glucose POC Capillary Glucose 106 H Calcium Phosphorus Magnesium 1.9 Triglycerides 11/23/24 11/23/24 11/23/24 00:14 05:59 06:03 WBC RBC Hgb Hct MCV MCH MCHC RDW Plt Count MPV Immature Gran % (Auto) Neut % (Auto) Lymph % (Auto) [place] % (Auto) Eos % (Auto) Baso % (Auto) Lymph # (Auto) [place] # (Auto) Eos # (Auto) Baso # (Auto) Abs Immat Gran (auto) Absolute Neuts (auto) Absolute Nucleated RBC Nucleated RBC % Sodium 140 Potassium 4.1 Chloride 104 Carbon Dioxide 29 Anion Gap 7 BUN 15 Creatinine 0.65 L Estim Creat Clear Calc 61 Estimated GFR > 60 Glucose 105 POC Capillary Glucose 113 H 102 Calcium 9.2 Phosphorus 4.0 Magnesium Triglycerides 79
[2024-11-23 14:00] VITALS: BP 114/58; PULSE 100; RESP 16; TEMP 36.4; O2SAT 100
[2024-11-23] MEDS: DEXTROSE 5%/LACTATED RINGERS 1,000 ML 75 ML IV CONT (20:31)
[2024-11-23 20:54] VITALS: O2SAT 100
[2024-11-23 21:50] VITALS: BP 112/69; PULSE 89; RESP 16; TEMP 37.1; O2SAT 100
[2024-11-24] MEDS: DEXTROSE 50% 25 GM/50 ML SYRINGE IV PUSH ×2 (00:11→17:37)
[2024-11-24 05:57] VITALS: BP 108/66; PULSE 70; RESP 18; TEMP 36.9; O2SAT 97
[2024-11-24 07:10] LABS: Anion Gap 6 mmol/L (4-12); Blood Urea Nitrogen 17 mg/dL (7-17); Calcium 9.5 mg/dL (8.4-10.2); Carbon Dioxide 31 mmol/L (22-30); Chloride 104 mmol/L (98-107); Estimated CRCL calculation 64 ml/min; Estimated Glomerular Filt Rate > 60; Glucose 101 mg/dL (65-110); Potassium 4.4 mmol/L (3.4-5.0); Sodium 141 mmol/L (137-145)
--- NOTE | 2024-11-24 08:51 | P.PNIM_ITS ---
Progress Note: A&P Assessment and Plan (1) ESTEFANÍA (acute kidney injury): Code(s): N17.9 - Acute kidney failure, unspecified Status: Acute (2) Abnormal urinalysis: Code(s): R82.90 - Unspecified abnormal findings in urine Status: Acute (3) Dehydration: Code(s): E86.0 - Dehydration Status: Acute (4) Hypernatremia: Code(s): E87.0 - Hyperosmolality and hypernatremia Status: Acute (5) UTI (urinary tract infection): Code(s): N39.0 - Urinary tract infection, site not specified Status: Acute (6) Decubitus ulcer of sacral region, unstageable: Code(s): L89.150 - Pressure ulcer of sacral region, unstageable Status: Chronic Plan UTI (urinary tract infection): Code(s): N39.0 - Urinary tract infection, site not specified Status: Acute Urine culture grows Enterococcus ampicillin started 11/15, ceftriaxone stopped based on urine culture Completed antibiotics treatment Starvation, positive ketone in urine, Dehydration,hypernatremia of 156, hypokalemia of 3.1, BUN of 23 and chloride of 116. Received fluid resuscitation on NG/dobhoff today, start tube feedings. Patient need NG tube feeding full long-term life support Discussed with patient's over the phone Decubitus ulcer of sacral region, unstageable: Code(s): L89.150 - Pressure ulcer of sacral region, unstageable Status: Chronic Assessment and Plan: Consult wound care, appreciate their recommendations CT scan abdomen pelvis did not appreciate any osteomyelitis or abscess formation related to wound. Consider surgery consult should wound start changing in appearance. * I48.0 - Paroxysmal atrial fibrillation Status: Chronic Assessment and Plan: Hold Eliquis NPO now-continue lovenox * Hypertension: Qualifiers: Hypertension type: primary hypertension Qualified Code(s): Essential (primary) hypertension Code(s): I10 - Essential (primary) hypertension Status: Chronic Assessment and Plan: * Continue home medications Adjust medication according to blood pressure Multiple sclerosis: Onset Date: 1997 Code(s): G35 - Multiple sclerosis Status: Chronic Assessment and Plan: Dysphagia: Qualifiers: Dysphagia type: unspecified Qualified Code(s): R13.10 - Dysphagia, unspecified Code(s): R13.10 - Dysphagia, unspecified Status: Acute Assessment and Plan: Patient's son states that he notices she has been pocketing foods in her mouth. Concern for high risk of aspiration. Speech evaluation ordered for swallow eval Patient is on NG tube feeds Patient has end-stage of multiple sclerosis, patient cannot tolerate diet Discussed with patient's and son They agree to proceed PEG tube feeding GI evaluated patient, schedule PEG tube placement on Friday 11/24 patient pulled out NG tube yesterday. NG could not be replaced because we do not have IR over the weekend Restart D5 and lactated Ringer 75 mL/hour. Patient was afebrile, blood pressure stable Plans PEG tube placement tomorrow Subjective Date/time seen: 11/24/24 08:51 Interval history: I saw examined patient today, patient pulled out NG tube yesterday. The feeding tube can not be replaced because we do not have IR over the weekend Restart D5 and lactated Ringer 75 mL/hour Patient was afebrile, blood pressure stable Plans PEG tube placement tomorrow Exam Narrative: GENERAL: ill-appearing, in no acute distress. Well-nourished. - EYES: EOMI. Anicteric. - HENT: Moist mucous membranes. NG tube in-situ was pulled out by patient - LUNGS: Clear to auscultation bilateral ly, no wheezing, rhonchi, or rales. - CARDIOVASCULAR: Regular rate and rhyth m. No murmur. No JVD. - ABDOMEN: Soft, non-tender and non-dist ended. No palpable masses. - EXTREMITIES: No edema. Peripheral puls es 2+. Non-tender. - NEUROLOGIC: Moving all extremity slig htly - PSYCHIATRIC: Awake, Alert and oriented x 3. Appropriate mood and affect. - SKIN: Sacral decubitus ulcer - LYMPH: No cervical lymphadenopathy. Objective Data Vital Signs Vital Signs: Vital Signs - 24 hr 11/23/24 14:00 11/23/24 20:00 11/23/24 20:54 Temperature 97.5 F L Pulse Rate 100 Respiratory Rate 16 Blood Pressure 114/58 L Pulse Oximetry 100 100 Oxygen Delivery Room Air Room Air 11/23/24 21:50 11/24/24 05:57 Temperature 98.7 F 98.5 F Pulse Rate 89 70 Respiratory Rate 16 18 Blood Pressure 112/69 108/66 Pulse Oximetry 100 97 Oxygen Delivery Intake/Output Intake/Output: Intake & Output 11/21/24 11/22/24 11/23/24 11/24/24 23:59 23:59 23:59 23:59 Intake Total 895 499 Output Total 2502 1200 550 675 Balance 2505 -305 -51 -675 Meds/Results Medications: Active Medications Generic Name Dose Route Start Last Admin Trade Name Freq PRN Reason Stop Dose Admin Acetaminophen 650 mg 11/12/24 21:41 Acetaminophen 325 Mg Tablet PO Q4H PRN Mild Pain (1-3) or Fever Apixaban 5 mg 11/19/24 09:00 11/21/24 09:11 Apixaban 5 Mg Tablet PO 5 mg Q12HR APRYL Administration Dextrose 12.5 gm 11/19/24 00:16 11/24/24 00:11 Dextrose 50% 25 Gm/50 Ml Syringe IV PUSH 12.5 gm PRN PRN Administration Hypoglycemia Protocol Glucagon 1 mg 11/19/24 00:16 Glucagon For Inj 1 Mg Vial IM PRN PRN Hypoglycemia Protocol Glucose 15 gm 11/19/24 00:16 Glucose Oral Gel 15 Gm Of Glucse In 37.5 Gm Tube PO PRN PRN Hypoglycemia Protocol Hydralazine HCl 10 mg 11/12/24 22:28 Hydralazine Hcl 20 Mg/Ml Vial IV PUSH Q8H PRN Blood Pressure - High Hydromorphone HCl 0.25 mg 11/15/24 14:45 11/23/24 05:07 Hydromorphone Hcl Inj (*Crx) 2 Mg/Ml Vial IV PUSH 0.25 mg Q3H PRN Administration Pain Rated 7-10 Amino Acids/Electrolytes/Dextrose 1,000 mls @ 80 mls/hr 11/16/24 12:00 11/18/24 06:44 Clinimix E 4.25%/5% Solution IV CONT 80 mls/hr .[id number] APRYL Administration Protocol Fat Emulsion Intravenous 250 mls @ 20.833 mls/hr 11/16/24 12:00 11/18/24 05:55 Lipids 20% IVPB Infused Q24H APRYL Infusion Dextrose/Lactated Ringer's 1,000 mls @ 75 mls/hr 11/23/24 18:45 11/23/24 20:31 Dextrose 5%/Lactated Ringers IV CONT 75 mls/hr .[id number] APRYL Administration Insulin Aspart 2 - 5 units 11/16/24 12:00 11/24/24 06:56 Insulin Aspart (*Bkc) 100 Units/Ml SUB-Q Not Given Q6HR [facility] Protocol Ondansetron HCl 4 mg 11/12/24 21:41 Ondansetron Inj 4 Mg/2 Ml Vial IV PUSH Q4H PRN Nausea Radiology Results: ITS Impressions Head CT 11/12/24 20:46 IMPRESSION: No acute intracranial findings. Abdomen/Pelvis CT 11/12/24 21:13 IMPRESSION: 1. Wound is seen in the area of the sacrum with no definite collection. Surrounding fat stranding is seen. 2. No evidence of appendicitis, diverticulitis or intestinal obstruction. Labs Labs: Laboratory Results - last 24 hr 11/23/24 11/23/24 11/24/24 11:59 17:19 00:05 Sodium Potassium Chloride Carbon Dioxide Anion Gap BUN Creatinine Estim Creat Clear Calc Estimated GFR Glucose POC Capillary Glucose 105 121 H 47 L* Calcium 11/24/24 11/24/24 11/24/24 00:42 04:56 06:24 Sodium 141 Potassium 4.4 Chloride 104 Carbon Dioxide 31 H Anion Gap 6 BUN 17 Creatinine 0.62 L Estim Creat Clear Calc 64 Estimated GFR > 60 Glucose 101 POC Capillary Glucose 169 H 76 Calcium 9.5
[2024-11-24] MEDS: DEXTROSE 5%/LACTATED RINGERS 1,000 ML 75 ML IV CONT ×2 (10:19→23:40)
[2024-11-24 10:23] LABS: Magnesium 2.0 mg/dL (1.6-2.3)
[2024-11-24 10:37] LABS: Hematocrit 28.4 % (37.0-47.0); Hemoglobin 9.5 g/dL (12.0-15.0); Immature Granulocyte Percent A 0.5 % (0-0.5); Lymphocytes Absolute Auto 1.27 K/mm3 (0.9-3.2); Mean Corpuscular HGB Conc 33.5 g/dl (32-36); Mean Corpuscular Hemoglobin 27.4 pg (26-34); Mean Corpuscular Volume 81.8 fl (80-100); Nucleated Red Blood Cells Absolute Auto 0.000 K/mm3 (0.0-0.012); Nucleated Red Blood Cells Perc 0.0 % (0.0-0.2); Platelet Count Result 383 k/mm3 (150-375); Red Blood Count 3.47 M/mm3 (4.2-5.4); White Blood Count 5.9 K/mm3 (4.5-10.0)
--- NOTE | 2024-11-24 11:12 | WPDGIPROGNO ---
Progress Note: A&P Assessment and Plan (1) Dysphagia: Qualifiers: Dysphagia type: unspecified Qualified Code(s): R13.10 - Dysphagia, unspecified Code(s): R13.10 - Dysphagia, unspecified Status: Acute Assessment and Plan: tomorrow G-tube placement eliquis is on hold (2) Malnutrition: Code(s): E46 - Unspecified protein-calorie malnutrition Status: Acute (3) Anticoagulated by anticoagulation treatment: Code(s): Z79.01 - half-way (current) use of anticoagulants Status: Chronic Assessment and Plan: eliquis on hold (4) Paroxysmal atrial fibrillation: Code(s): I48.0 - Paroxysmal atrial fibrillation Status: Chronic (5) Multiple sclerosis: Onset Date: 1997 Code(s): G35 - Multiple sclerosis Status: Chronic (6) Chronic anemia: Code(s): D64.9 - Anemia, unspecified Status: Acute Assessment and Plan: stable Subjective Date/time seen: 11/24/24 11:12 Interval history: no changes she does not have DHT anymore Review of Systems Review of Systems: All systems reviewed & are unremarkable except as noted in HPI and below Exam Narrative: GENERAL: ill-appearing, in no acute distress. Well-nourished. - EYES: EOMI. Anicteric. - HENT: Moist mucous membranes. - LUNGS: Clear to auscultation bilaterally, no wheezing, rhonchi, or rales. - CARDIOVASCULAR: Regular rate and rhythm. No murmur. No JVD. - ABDOMEN: Soft, non-tender and non-distended. No palpable masses. - EXTREMITIES: No edema. Peripheral pulses 2+. Non-tender. - NEUROLOGIC: Moving all extremity slightly - PSYCHIATRIC: Awake, Alert and oriented x 3. - SKIN: Sacral decubitus ulcer - LYMPH: No cervical lymphadenopathy. Objective Data Vital Signs Vital Signs: Vital Signs - 24 hr 11/23/24 14:00 11/23/24 20:00 11/23/24 20:54 Temperature 97.5 F L Pulse Rate 100 Respiratory Rate 16 Blood Pressure 114/58 L Pulse Oximetry 100 100 Oxygen Delivery Room Air Room Air 11/23/24 21:50 11/24/24 05:57 11/24/24 10:58 Temperature 98.7 F 98.5 F Pulse Rate 89 70 Respiratory Rate 16 18 Blood Pressure 112/69 108/66 Pulse Oximetry 100 97 Oxygen Delivery Room Air Intake/Output Intake/Output: Intake & Output 11/21/24 11/22/24 11/23/24 11/24/24 23:59 23:59 23:59 23:59 Intake Total 209 443 4546 Output Total 2505 1200 550 675 [facility] -2505 -305 -51 325 Meds/Results Medications: Active Medications Generic Name Dose Route Start Last Admin Trade Name Freq PRN Reason Stop Dose Admin Acetaminophen 650 mg 11/12/24 21:41 Acetaminophen 325 Mg Tablet PO Q4H PRN Mild Pain (1-3) or Fever Apixaban 5 mg 11/19/24 09:00 11/21/24 09:11 Apixaban 5 Mg Tablet PO 5 mg Q12HR APRYL Administration Dextrose 12.5 gm 11/19/24 00:16 11/24/24 00:11 Dextrose 50% 25 Gm/50 Ml Syringe IV PUSH 12.5 gm PRN PRN Administration Hypoglycemia Protocol Glucagon 1 mg 11/19/24 00:16 Glucagon For Inj 1 Mg Vial IM PRN PRN Hypoglycemia Protocol Glucose 15 gm 11/19/24 00:16 Glucose Oral Gel 15 Gm Of Glucse In 37.5 Gm Tube PO PRN PRN Hypoglycemia Protocol Hydralazine HCl 10 mg 11/12/24 22:28 Hydralazine Hcl 20 Mg/Ml Vial IV PUSH Q8H PRN Blood Pressure - High Hydromorphone HCl 0.25 mg 11/15/24 14:45 11/23/24 05:07 Hydromorphone Hcl Inj (*Crx) 2 Mg/Ml Vial IV PUSH 0.25 mg Q3H PRN Administration Pain Rated 7-10 Amino Acids/Electrolytes/Dextrose 1,000 mls @ 80 mls/hr 11/16/24 12:00 11/18/24 06:44 Clinimix E 4.25%/5% Solution IV CONT 80 mls/hr .[id number] APRYL Administration Protocol Fat Emulsion Intravenous 250 mls @ 20.833 mls/hr 11/16/24 12:00 11/18/24 05:55 Lipids 20% IVPB Infused Q24H APRYL Infusion Dextrose/Lactated Ringer's 1,000 mls @ 75 mls/hr 11/23/24 18:45 11/24/24 10:19 Dextrose 5%/Lactated Ringers IV CONT 75 mls/hr .[id number] APRYL Administration Insulin Aspart 2 - 5 units 11/16/24 12:00 11/24/24 06:56 Insulin Aspart (*Bkc) 100 Units/Ml SUB-Q Not Given Q6HR [facility] Protocol Ondansetron HCl 4 mg 11/12/24 21:41 Ondansetron Inj 4 Mg/2 Ml Vial IV PUSH Q4H PRN Nausea Radiology Results: ITS Impressions Head CT 11/12/24 20:46 IMPRESSION: No acute intracranial findings. Abdomen/Pelvis CT 11/12/24 21:13 IMPRESSION: 1. Wound is seen in the area of the sacrum with no definite collection. Surrounding fat stranding is seen. 2. No evidence of appendicitis, diverticulitis or intestinal obstruction. Labs Labs: Laboratory Results - last 24 hr 11/23/24 11/23/24 11/24/24 11:59 17:19 00:05 WBC RBC Hgb Hct MCV MCH MCHC RDW Plt Count MPV Immature Gran % (Auto) Neut % (Auto) Lymph % (Auto) [place] % (Auto) Eos % (Auto) Baso % (Auto) Lymph # (Auto) [place] # (Auto) Eos # (Auto) Baso # (Auto) Abs Immat Gran (auto) Absolute Neuts (auto) Absolute Nucleated RBC Nucleated RBC % Sodium Potassium Chloride Carbon Dioxide Anion Gap BUN Creatinine Estim Creat Clear Calc Estimated GFR Glucose POC Capillary Glucose 105 121 H 47 L* Calcium Phosphorus Magnesium 11/24/24 11/24/24 11/24/24 00:42 04:56 06:24 WBC 5.9 RBC 3.47 L Hgb 9.5 L Hct 28.4 L MCV 81.8 MCH 27.4 MCHC 33.5 RDW 19.7 H Plt Count 383 H MPV 11.7 H Immature Gran % (Auto) 0.5 Neut % (Auto) 66.0 Lymph % (Auto) 21.6 [place] % (Auto) 7.3 Eos % (Auto) 3.7 Baso % (Auto) 0.9 Lymph # (Auto) 1.27 [place] # (Auto) 0.4 Eos # (Auto) 0.2 Baso # (Auto) 0.1 Abs Immat Gran (auto) 0.03 Absolute Neuts (auto) 3.9 Absolute Nucleated RBC 0.000 Nucleated RBC % 0.0 Sodium 141 Potassium 4.4 Chloride 104 Carbon Dioxide 31 H Anion Gap 6 BUN 17 Creatinine 0.62 L Estim Creat Clear Calc 64 Estimated GFR > 60 Glucose 101 POC Capillary Glucose 169 H 76 Calcium 9.5 Phosphorus 4.0 Magnesium 2.0 11/24/24 09:28 WBC RBC Hgb Hct MCV MCH MCHC RDW Plt Count MPV Immature Gran % (Auto) Neut % (Auto) Lymph % (Auto) [place] % (Auto) Eos % (Auto) Baso % (Auto) Lymph # (Auto) [place] # (Auto) Eos # (Auto) Baso # (Auto) Abs Immat Gran (auto) Absolute Neuts (auto) Absolute Nucleated RBC Nucleated RBC % Sodium Potassium Chloride Carbon Dioxide Anion Gap BUN Creatinine Estim Creat Clear Calc Estimated GFR Glucose POC Capillary Glucose 91 Calcium Phosphorus Magnesium
[2024-11-24 14:00] VITALS: BP 108/64; PULSE 79; RESP 16; TEMP 36.3; O2SAT 94
[2024-11-24 21:50] VITALS: PULSE 72; RESP 20; O2SAT 97
[2024-11-24 22:00] VITALS: BP 124/82; PULSE 81; RESP 16; TEMP 36.4; O2SAT 94
[2024-11-25] VITALS (8 sets, daily range): BP systolic 110–139; BP diastolic 56–81; PULSE 81–96; RESP 14–20; TEMP 36.8–37.3; O2SAT 92–100
[2024-11-25] MEDS: DEXTROSE 50% 25 GM/50 ML SYRINGE IV PUSH ×2 (00:35→12:36)
[2024-11-25 08:11] LABS: Hematocrit 27.9 % (37.0-47.0); Hemoglobin 9.2 g/dL (12.0-15.0); Immature Granulocyte Percent A 0.5 % (0-0.5); Lymphocytes Absolute Auto 0.73 K/mm3 (0.9-3.2); Mean Corpuscular HGB Conc 33.0 g/dl (32-36); Mean Corpuscular Hemoglobin 26.6 pg (26-34); Mean Corpuscular Volume 80.6 fl (80-100); Nucleated Red Blood Cells Absolute Auto 0.000 K/mm3 (0.0-0.012); Nucleated Red Blood Cells Perc 0.0 % (0.0-0.2); Platelet Count Result 434 k/mm3 (150-375); Red Blood Count 3.46 M/mm3 (4.2-5.4); White Blood Count 6.2 K/mm3 (4.5-10.0)
[2024-11-25 08:15] LABS: INR 1.1; Partial Thromboplastin Time 32.3 Seconds (22.3-36.8); Prothrombin Time 14.3 Seconds (11.1-14.7)
[2024-11-25 08:53] LABS: Alanine Aminotransferase 10 U/L (6-35); Albumin Level 2.9 g/dL (3.5-5.1); Alkaline Phosphatase 77 U/L (38-126); Anion Gap 8 mmol/L (4-12); Aspartate Amino Transferase 33 U/L (14-36); Bilirubin,Total 0.4 mg/dL (0.2-1.3); Blood Urea Nitrogen 8 mg/dL (7-17); Calcium 9.1 mg/dL (8.4-10.2); Carbon Dioxide 25 mmol/L (22-30); Chloride 107 mmol/L (98-107); Estimated CRCL calculation 73 ml/min; Estimated Glomerular Filt Rate > 60; Glucose 95 mg/dL (65-110); Potassium 2.7 mmol/L (3.4-5.0); Sodium 140 mmol/L (137-145); Total Protein 7.2 g/dL (6.3-8.2); Triglycerides 106 mg/dL (<150)
[2024-11-25 09:05] LABS: Transferrin 124 mg/dL (206-381)
[2024-11-25 09:10] LABS: Magnesium 1.9 mg/dL (1.6-2.3)
[2024-11-25] MEDS: KCL 40 MEQ/WATER 100 ML 100 ML 25 ML IVPB (09:49)
--- NOTE | 2024-11-25 12:35 | P.PNIM_ITS ---
Progress Note: A&P Assessment and Plan (1) ESTEFANÍA (acute kidney injury): Code(s): N17.9 - Acute kidney failure, unspecified Status: Acute (2) Abnormal urinalysis: Code(s): R82.90 - Unspecified abnormal findings in urine Status: Acute (3) Dehydration: Code(s): E86.0 - Dehydration Status: Acute (4) Hypernatremia: Code(s): E87.0 - Hyperosmolality and hypernatremia Status: Acute (5) UTI (urinary tract infection): Code(s): N39.0 - Urinary tract infection, site not specified Status: Acute (6) Decubitus ulcer of sacral region, unstageable: Code(s): L89.150 - Pressure ulcer of sacral region, unstageable Status: Chronic Plan UTI (urinary tract infection): Code(s): N39.0 - Urinary tract infection, site not specified Status: Acute Urine culture grows Enterococcus ampicillin started 11/15, ceftriaxone stopped based on urine culture Completed antibiotics treatment Starvation, positive ketone in urine, Dehydration,hypernatremia of 156, hypokalemia of 3.1, BUN of 23 and chloride of 116. Received fluid resuscitation on NG/dobhoff today, start tube feedings. Patient need NG tube feeding full long-term life support Discussed with patient's over the phone Decubitus ulcer of sacral region, unstageable: Code(s): L89.150 - Pressure ulcer of sacral region, unstageable Status: Chronic Assessment and Plan: Consult wound care, appreciate their recommendations CT scan abdomen pelvis did not appreciate any osteomyelitis or abscess formation related to wound. Consider surgery consult should wound start changing in appearance. * I48.0 - Paroxysmal atrial fibrillation Status: Chronic Assessment and Plan: Hold Eliquis NPO now-continue lovenox * Hypertension: Qualifiers: Hypertension type: primary hypertension Qualified Code(s): Essential (primary) hypertension Code(s): I10 - Essential (primary) hypertension Status: Chronic Assessment and Plan: * Continue home medications Adjust medication according to blood pressure Multiple sclerosis: Onset Date: 1997 Code(s): G35 - Multiple sclerosis Status: Chronic Assessment and Plan: Dysphagia: Qualifiers: Dysphagia type: unspecified Qualified Code(s): R13.10 - Dysphagia, unspecified Code(s): R13.10 - Dysphagia, unspecified Status: Acute Assessment and Plan: Patient's son states that he notices she has been pocketing foods in her mouth. Concern for high risk of aspiration. Speech evaluation ordered for swallow eval Patient is on NG tube feeds Patient has end-stage of multiple sclerosis, patient cannot tolerate diet Discussed with patient's and son They agree to proceed PEG tube feeding GI evaluated patient, schedule PEG tube placement on Friday 11/24 patient pulled out NG tube yesterday. NG could not be replaced because we do not have IR over the weekend Restart D5 and lactated Ringer 75 mL/hour. Patient was afebrile, blood pressure stable Patient has hypokalemia, 2.7, today, replete with potassium chloride 40 meq once since PEG tube placement is rescheduled tomorrow 11/25 Subjective Date/time seen: 11/25/24 12:35 Interval history: I saw examined patient today Patient feels comfortable, has no on worse distress, Potassium 2.7 today, Plans PEG tube placement will be rescheduled tomorrow Exam Narrative: GENERAL: ill-appearing, in no acute distress. Well-nourished. - EYES: EOMI. Anicteric. - HENT: Moist mucous membranes. NG tube in-situ was pulled out by patient - LUNGS: Clear to auscultation bilateral ly, no wheezing, rhonchi, or rales. - CARDIOVASCULAR: Regular rate and rhyth m. No murmur. No JVD. - ABDOMEN: Soft, non-tender and non-dist ended. No palpable masses. - EXTREMITIES: No edema. Peripheral puls es 2+. Non-tender. - NEUROLOGIC: Moving all extremity slig htly - PSYCHIATRIC: Awake, Alert and oriented x 3. Appropriate mood and affect. - SKIN: Sacral decubitus ulcer - LYMPH: No cervical lymphadenopathy. Objective Data Vital Signs Vital Signs: Vital Signs - 24 hr 11/24/24 14:00 11/24/24 20:00 11/24/24 21:50 Temperature 97.3 F L Pulse Rate 79 72 Respiratory Rate 16 20 Blood Pressure 108/64 Pulse Oximetry 94 97 Oxygen Delivery Room Air Room Air Fraction of Inspired Oxygen 21 11/24/24 22:00 11/25/24 06:00 Temperature 97.6 F 99.1 F Pulse Rate 81 96 Respiratory Rate 16 16 Blood Pressure 124/82 127/80 Pulse Oximetry 94 100 Oxygen Delivery Fraction of Inspired Oxygen Intake/Output Intake/Output: Intake & Output 11/22/24 11/23/24 11/24/24 11/25/24 23:59 23:59 23:59 23:59 Intake Total 642 380 6359 Output Total 1200 486 921 5564 Balance -305 -51 1325 -1400 Meds/Results Medications: Active Medications Generic Name Dose Route Start Last Admin Trade Name Freq PRN Reason Stop Dose Admin Acetaminophen 650 mg 11/12/24 21:41 Acetaminophen 325 Mg Tablet PO Q4H PRN Mild Pain (1-3) or Fever Apixaban 5 mg 11/19/24 09:00 11/21/24 09:11 Apixaban 5 Mg Tablet PO 5 mg Q12HR APRYL Administration Dextrose 12.5 gm 11/19/24 00:16 11/25/24 00:35 Dextrose 50% 25 Gm/50 Ml Syringe IV PUSH 12.5 gm PRN PRN Administration Hypoglycemia Protocol Glucagon 1 mg 11/19/24 00:16 Glucagon For Inj 1 Mg Vial IM PRN PRN Hypoglycemia Protocol Glucose 15 gm 11/19/24 00:16 Glucose Oral Gel 15 Gm Of Glucse In 37.5 Gm Tube PO PRN PRN Hypoglycemia Protocol Hydralazine HCl 10 mg 11/12/24 22:28 Hydralazine Hcl 20 Mg/Ml Vial IV PUSH Q8H PRN Blood Pressure - High Hydromorphone HCl 0.25 mg 11/15/24 14:45 11/23/24 05:07 Hydromorphone Hcl Inj (*Crx) 2 Mg/Ml Vial IV PUSH 0.25 mg Q3H PRN Administration Pain Rated 7-10 Amino Acids/Electrolytes/Dextrose 1,000 mls @ 80 mls/hr 11/16/24 12:00 11/18/24 06:44 Clinimix E 4.25%/5% Solution IV CONT 80 mls/hr .[id number] APRYL Administration Protocol Fat Emulsion Intravenous 250 mls @ 20.833 mls/hr 11/16/24 12:00 11/18/24 05:55 Lipids 20% IVPB Infused Q24H APRYL Infusion Dextrose/Lactated Ringer's 1,000 mls @ 75 mls/hr 11/23/24 18:45 11/24/24 23:40 Dextrose 5%/Lactated Ringers IV CONT 75 mls/hr .[id number] APRYL Administration Cefazolin Sodium 1 gm/ Sodium 50 mls @ 100 mls/hr 11/25/24 13:00 Chloride IVPB 11/25/24 13:29 ONCE ONE Potassium Chloride 100 mls @ 25 mls/hr 11/25/24 09:30 11/25/24 09:49 Kcl 40 Meq/Water 100 Ml IVPB 11/25/24 13:29 25 mls/hr ONCE ONE Administration Insulin Aspart 2 - 5 units 11/16/24 12:00 11/25/24 07:39 Insulin Aspart (*Bkc) 100 Units/Ml SUB-Q Not Given Q6HR [facility] Protocol Miscellaneous Information 1 each 11/24/24 00:01 Hydromorphone Needs To Be Renewed Or It Will Automatically Discontinue. XX 12/24/24 00:00 CLARIFY APRYL Ondansetron HCl 4 mg 11/12/24 21:41 Ondansetron Inj 4 Mg/2 Ml Vial IV PUSH Q4H PRN Nausea Radiology Results: ITS Impressions Head CT 11/12/24 20:46 IMPRESSION: No acute intracranial findings. Abdomen/Pelvis CT 11/12/24 21:13 IMPRESSION: 1. Wound is seen in the area of the sacrum with no definite collection. Surrounding fat stranding is seen. 2. No evidence of appendicitis, diverticulitis or intestinal obstruction. Labs Labs: Laboratory Results - last 24 hr 11/24/24 11/24/24 11/25/24 17:34 17:59 00:27 WBC RBC Hgb Hct MCV MCH MCHC RDW Plt Count MPV Immature Gran % (Auto) Neut % (Auto) Lymph % (Auto) [place] % (Auto) Eos % (Auto) Baso % (Auto) Lymph # (Auto) [place] # (Auto) Eos # (Auto) Baso # (Auto) Abs Immat Gran (auto) Absolute Neuts (auto) Absolute Nucleated RBC Nucleated RBC % PT INR APTT Sodium Potassium Chloride Carbon Dioxide Anion Gap BUN Creatinine Estim Creat Clear Calc Estimated GFR Glucose POC Capillary Glucose 64 L 107 H 62 L Calcium Phosphorus Magnesium Transferrin Total Bilirubin AST ALT Alkaline Phosphatase Total Protein Albumin Triglycerides 11/25/24 11/25/24 11/25/24 01:41 06:27 07:09 WBC 6.2 RBC 3.46 L Hgb 9.2 L Hct 27.9 L MCV 80.6 MCH 26.6 MCHC 33.0 RDW 18.9 H Plt Count 434 H MPV 10.2 Immature Gran % (Auto) 0.5 Neut % (Auto) 75.6 H Lymph % (Auto) 11.8 L [place] % (Auto) 6.6 Eos % (Auto) 4.4 Baso % (Auto) 1.1 Lymph # (Auto) 0.73 L [place] # (Auto) 0.4 Eos # (Auto) 0.3 Baso # (Auto) 0.1 Abs Immat Gran (auto) 0.03 Absolute Neuts (auto) 4.7 Absolute Nucleated RBC 0.000 Nucleated RBC % 0.0 PT 14.3 INR 1.1 APTT 32.3 Sodium 140 Potassium 2.7 L* Chloride 107 Carbon Dioxide 25 Anion Gap 8 BUN 8 D Creatinine 0.53 L Estim Creat Clear Calc 73 Estimated GFR > 60 Glucose 95 POC Capillary Glucose 90 98 Calcium 9.1 Phosphorus 3.5 Magnesium 1.9 Transferrin 124 L Total Bilirubin 0.4 AST 33 ALT 10 Alkaline Phosphatase 77 Total Protein 7.2 Albumin 2.9 L Triglycerides 106 11/25/24 11/25/24 07:09 12:03 WBC RBC Hgb Hct MCV MCH MCHC RDW Plt Count MPV Immature Gran % (Auto) Neut % (Auto) Lymph % (Auto) [place] % (Auto) Eos % (Auto) Baso % (Auto) Lymph # (Auto) [place] # (Auto) Eos # (Auto) Baso # (Auto) Abs Immat Gran (auto) Absolute Neuts (auto) Absolute Nucleated RBC Nucleated RBC % PT INR APTT Sodium Potassium Chloride Carbon Dioxide Anion Gap BUN Creatinine Estim Creat Clear Calc Estimated GFR Glucose POC Capillary Glucose 59 L* Calcium Phosphorus Magnesium Transferrin Total Bilirubin AST ALT Alkaline Phosphatase Total Protein Albumin Triglycerides Cancelled
[2024-11-25 14:59] LABS: Potassium 3.8 mmol/L (3.4-5.0)
--- NOTE | 2024-11-25 15:24 | WPDANESEPPF ---
Anes - Initial Pre Proc Eval Procedure: Operation Date: 11/25/24 14:15 Proposed Procedures p Percutaneous Endoscopic Gastrostomy - Abdulaziz Mccracken MD Date/Time: 11/25/24 15:24 Surgeon: Leelee Toledo MD Pre Op Diagnosis: Acute dehydration, urinary tract infection Patient Data Age: 64 Gender: F Height: 1.6 m Weight: 52.1 kg Last Vital Signs Temp 37.1 C 11/25/24 14:00 Pulse 86 11/25/24 14:00 Resp 14 11/25/24 14:00 BP 111/65 11/25/24 14:00 Pulse Ox 100 11/25/24 14:00 O2 Del Method Room Air 11/24/24 21:50 FiO2 21 11/24/24 21:50 Allergies Allergy/AdvReac Type Severity Reaction Status Date / Time Seasonal Allergies Allergy Mild itchiness Uncoded 11/13/24 02:12 Home Medications ?Medication ?Instructions ?Recorded ?Confirmed ?Type dimethyl fumarate 240 mg 240 mg PO BID #180 caps 05/13/24 11/12/24 Rx capsule,delayed release (Tecfidera) valacyclovir 500 mg tablet 1,000 mg (2 x 500 mg) PO Q12HR #17 07/02/24 11/12/24 Rx (Valtrex) tabs polyethylene glycol 3350 17 4 g PO DAILY 10/23/24 11/12/24 History gram/dose oral powder (ClearLax) apixaban 5 mg tablet (Eliquis) 5 mg PO Q12HR #60 tabs 10/29/24 11/12/24 Rx Laboratory Tests 11/24/24 11/24/24 11/25/24 17:34 17:59 00:27 WBC RBC Hgb Hct MCV MCH MCHC RDW Plt Count MPV Immature Gran % (Auto) Neut % (Auto) Lymph % (Auto) [place] % (Auto) Eos % (Auto) Baso % (Auto) Lymph # (Auto) [place] # (Auto) Eos # (Auto) Baso # (Auto) Abs Immat Gran (auto) Absolute Neuts (auto) Absolute Nucleated RBC Nucleated RBC % PT INR APTT Sodium Potassium Chloride Carbon Dioxide Anion Gap BUN Creatinine Estim Creat Clear Calc Estimated GFR Glucose POC Capillary Glucose 64 L mg/dl 107 H mg/dl 62 L mg/dl (65-105) (65-105) (65-105) Calcium Phosphorus Magnesium Transferrin Total Bilirubin AST ALT Alkaline Phosphatase Total Protein Albumin Triglycerides 11/25/24 11/25/24 11/25/24 01:41 06:27 07:09 WBC 6.2 K/mm3 (4.5-10.0) RBC 3.46 L M/mm3 (4.2-5.4) Hgb 9.2 L g/dL (12.0-15.0) Hct 27.9 L % (37.0-47.0) MCV 80.6 fl (80-100) MCH 26.6 pg (26-34) MCHC 33.0 g/dl (32-36) RDW 18.9 H % (11.5-14.5) Plt Count 434 H k/mm3 (150-375) MPV 10.2 fl (7.4-10.4) Immature Gran % (Auto) 0.5 % (0-0.5) Neut % (Auto) 75.6 H % (45.5-73.1) Lymph % (Auto) 11.8 L % (18.3-44.2) [place] % (Auto) 6.6 % (2.6-8.5) Eos % (Auto) 4.4 % (0-4.4) Baso % (Auto) 1.1 % (0.2-1.2) Lymph # (Auto) 0.73 L K/mm3 (0.9-3.2) [place] # (Auto) 0.4 K/mm3 (0.1-0.6) Eos # (Auto) 0.3 K/mm3 (0-0.3) Baso # (Auto) 0.1 K/mm3 (0.0-0.1) Abs Immat Gran (auto) 0.03 K/mm3 (0.00-0.031) Absolute Neuts (auto) 4.7 K/mm3 (1.3-6.7) Absolute Nucleated RBC 0.000 K/mm3 (0.0-0.012) Nucleated RBC % 0.0 % (0.0-0.2) PT 14.3 Seconds (11.1-14.7) INR 1.1 APTT 32.3 Seconds (22.3-36.8) Sodium 140 mmol/L (137-145) Potassium 2.7 L* mmol/L (3.4-5.0) Chloride 107 mmol/L (98-107) Carbon Dioxide 25 mmol/L (22-30) Anion Gap 8 mmol/L (4-12) BUN 8 D mg/dL (7-17) Creatinine 0.53 L mg/dL (0.7-1.0) Estim Creat Clear Calc 73 ml/min Estimated GFR > 60 (59 - ) Glucose 95 mg/dL (65-110) POC Capillary Glucose 90 mg/dl 98 mg/dl (65-105) (65-105) Calcium 9.1 mg/dL (8.4-10.2) Phosphorus 3.5 mg/dL (2.5-4.5) Magnesium 1.9 mg/dL (1.6-2.3) Transferrin 124 L mg/dL (206-381) Total Bilirubin 0.4 mg/dL (0.2-1.3) AST 33 U/L (14-36) ALT 10 U/L (6-35) Alkaline Phosphatase 77 U/L (38-126) Total Protein 7.2 g/dL (6.3-8.2) Albumin 2.9 L g/dL (3.5-5.1) Triglycerides 106 mg/dL (<150) 11/25/24 11/25/24 11/25/24 07:09 12:03 14:42 WBC RBC Hgb Hct MCV MCH MCHC RDW Plt Count MPV Immature Gran % (Auto) Neut % (Auto) Lymph % (Auto) [place] % (Auto) Eos % (Auto) Baso % (Auto) Lymph # (Auto) [place] # (Auto) Eos # (Auto) Baso # (Auto) Abs Immat Gran (auto) Absolute Neuts (auto) Absolute Nucleated RBC Nucleated RBC % PT INR APTT Sodium Potassium 3.8 mmol/L (3.4-5.0) Chloride Carbon Dioxide Anion Gap BUN Creatinine Estim Creat Clear Calc Estimated GFR Glucose POC Capillary Glucose 59 L* mg/dl (65-105) Calcium Phosphorus Magnesium Transferrin Total Bilirubin AST ALT Alkaline Phosphatase Total Protein Albumin Triglycerides Cancelled Patient hx anesthesia problems: none Family hx anesthesia problems: none Results Review: All pre-operative results and documents have been reviewed as part of the pre-operative evaluation. [facility] Past Medical History Medical History Chronic anemia Malnutrition Increased anion gap metabolic acidosis Electrolyte abnormality ESTEFANÍA (acute kidney injury) Venous insufficiency of lower extremity Scoliosis History of ectopic Paroxysmal atrial fibrillation Multiple sclerosis (1997) Hypertension Cellulitis Of the left lower extreme Surgical History Surgical History History of 2 sections Family History Family History Father CAD (coronary artery disease) Hypertension Cerebrovascular accident Mother Blood clot due to device, implant, or graft Social History Social History Social History: The patient is lives with her son for the last 3 years until her recent hospitalization in May at which time she was discharged to [facility] for rehab. She raised 2 sons. She is currently living with her oldest son. At baseline the patient can report the walk. Code status: Full code Surrogate decision maker: Olivier Gonzalez (son) Smoking status: Never smoker Second hand tobacco smoke exposure: No Alcohol intake: never Substance use: never Substance use type: does not use Do You Feel Safe in your Home?: No Lack of Transportation: No Lack of Food: Never True Current Housing: I Have Housing Concerned About Future Housing: No Difficulty Paying Gas/Electric Bills: No Difficulty Paying for Meds: No Currently Unemployed: No Education: Bachelor's Degree Difficulty w/ Childcare or Family Care: No Spiritual care concerns: No Anes - Eval Final PreProcedure Day of Procedure 11/25/24 15:24 Patient weight: thin Heart: regular rate and rhythm Lungs: clear to auscultation Airway: Mallampati scale class II Neurological: alert and oriented Last oral intake: >/= 8 hours ASA classification: IV Emergent: no Anesthetic plan: proceed Anesthesia type and monitoring: general GIVS and standard monitoring Results Review: All pre-operative results and documents have been reviewed as part of the pre-operative evaluation. Informed Consent: The patient's anesthetic plan and its attendant risks and benefits were discussed with the patient/family/POA. Questions were solicited and answers provided to the satisfaction of the patient/family/POA.
[2024-11-25] MEDS: LACTATED RINGERS 1,000 ML 150 ML IV CONT (15:50)
[2024-11-25] MEDS: ceFAZolin 1 GM in SODIUM CHLORIDE 0.9% IV 50 ML 100 ML IVPB (15:57)
[2024-11-25] MEDS: DEXTROSE 5%/LACTATED RINGERS 1,000 ML 75 ML IV CONT (21:45)
[2024-11-26 06:00] VITALS: BP 147/85; PULSE 82; RESP 18; TEMP 37.1; O2SAT 91
[2024-11-26 06:14] LABS: Hematocrit 28.1 % (37.0-47.0); Hemoglobin 9.6 g/dL (12.0-15.0); Immature Granulocyte Percent A 0.5 % (0-0.5); Lymphocytes Absolute Auto 0.85 K/mm3 (0.9-3.2); Mean Corpuscular HGB Conc 34.2 g/dl (32-36); Mean Corpuscular Hemoglobin 27.0 pg (26-34); Mean Corpuscular Volume 79.2 fl (80-100); Nucleated Red Blood Cells Absolute Auto 0.000 K/mm3 (0.0-0.012); Nucleated Red Blood Cells Perc 0.0 % (0.0-0.2); Platelet Count Result 448 k/mm3 (150-375); Red Blood Count 3.55 M/mm3 (4.2-5.4); White Blood Count 6.4 K/mm3 (4.5-10.0)
[2024-11-26 06:43] LABS: Anion Gap 9 mmol/L (4-12); Blood Urea Nitrogen 4 mg/dL (7-17); Calcium 9.2 mg/dL (8.4-10.2); Carbon Dioxide 25 mmol/L (22-30); Chloride 106 mmol/L (98-107); Estimated CRCL calculation 71 ml/min; Estimated Glomerular Filt Rate > 60; Glucose 99 mg/dL (65-110); Magnesium 1.8 mg/dL (1.6-2.3); Potassium 3.0 mmol/L (3.4-5.0); Sodium 140 mmol/L (137-145)
[2024-11-26 09:19] VITALS: BMI 20.3
--- NOTE | 2024-11-26 10:42 | P.PNIM_ITS ---
Progress Note: A&P Assessment and Plan (1) ESTEFANÍA (acute kidney injury): Code(s): N17.9 - Acute kidney failure, unspecified Status: Acute (2) Abnormal urinalysis: Code(s): R82.90 - Unspecified abnormal findings in urine Status: Acute (3) Dehydration: Code(s): E86.0 - Dehydration Status: Acute (4) Hypernatremia: Code(s): E87.0 - Hyperosmolality and hypernatremia Status: Acute (5) UTI (urinary tract infection): Code(s): N39.0 - Urinary tract infection, site not specified Status: Acute (6) Decubitus ulcer of sacral region, unstageable: Code(s): L89.150 - Pressure ulcer of sacral region, unstageable Status: Chronic Plan UTI (urinary tract infection): Code(s): N39.0 - Urinary tract infection, site not specified Status: Acute Urine culture grows Enterococcus ampicillin started 11/15, ceftriaxone stopped based on urine culture Completed antibiotics treatment Starvation, positive ketone in urine, Dehydration,hypernatremia of 156, hypokalemia of 3.1, BUN of 23 and chloride of 116. Received fluid resuscitation was on NG tube feedings. Peg tube is placed today, patient is on NG tube feeding now Decubitus ulcer of sacral region, unstageable: Code(s): L89.150 - Pressure ulcer of sacral region, unstageable Status: Chronic Assessment and Plan: Consult wound care, appreciate their recommendations CT scan abdomen pelvis did not appreciate any osteomyelitis or abscess formation related to wound. Consider surgery consult should wound start changing in appearance. * I48.0 - Paroxysmal atrial fibrillation Status: Chronic Assessment and Plan: Hold Eliquis NPO now-continue lovenox * Hypertension: Qualifiers: Hypertension type: primary hypertension Qualified Code(s): Essential (primary) hypertension Code(s): I10 - Essential (primary) hypertension Status: Chronic Assessment and Plan: * Continue home medications Adjust medication according to blood pressure Multiple sclerosis: Onset Date: 1997 Code(s): G35 - Multiple sclerosis Status: Chronic Assessment and Plan: Dysphagia: Qualifiers: Dysphagia type: unspecified Qualified Code(s): R13.10 - Dysphagia, unspecified Code(s): R13.10 - Dysphagia, unspecified Status: Acute Assessment and Plan: Patient's son states that he notices she has been pocketing foods in her mouth. Concern for high risk of aspiration. Speech evaluation ordered for swallow eval Patient is on NG tube feeds Patient has end-stage of multiple sclerosis, patient cannot tolerate diet Discussed with patient's and son They agree to proceed PEG tube feeding GI evaluated patient, schedule PEG tube placement on Friday 11/24 patient pulled out NG tube yesterday. NG could not be replaced because we do not have IR over the weekend Restart D5 and lactated Ringer 75 mL/hour. Patient was afebrile, blood pressure stable Patient has hypokalemia, 2.7, today, replete with potassium chloride 40 meq once since PEG tube placement is rescheduled tomorrow 11/25 11/26: Peg tube was placed without complication Plan to discharge patient to SNF Subjective Date/time seen: 11/26/24 10:42 Interval history: I saw examined patient in presents of patient's niece and patient is on today PEG tube placed orally morning without complication, tube feeding is started. Patient feels comfortable, has no complaints Patient denies nausea vomiting abdomen pain Exam Narrative: GENERAL: ill-appearing, in no acute distress. Well-nourished. - EYES: EOMI. Anicteric. - HENT: Moist mucous membranes. - LUNGS: Clear to auscultation bilateral ly, no wheezing, rhonchi, or rales. - CARDIOVASCULAR: Regular rate and rhyth m. No murmur. No JVD. - ABDOMEN: Soft, non-tender and non-dist ended. No palpable masses. Peg tube in- situ, no bleeding - EXTREMITIES: No edema. Peripheral puls es 2+. Non-tender. - NEUROLOGIC: Moving all extremity slig htly - PSYCHIATRIC: Awake, Alert and oriented x 3. Appropriate mood and affect. - SKIN: Sacral decubitus ulcer - LYMPH: No cervical lymphadenopathy. Objective Data Vital Signs Vital Signs: Vital Signs - 24 hr 11/25/24 14:00 11/25/24 15:39 11/25/24 16:38 Temperature 98.8 F 99 F Pulse Rate 86 89 85 Respiratory Rate 16 16 Blood Pressure 111/65 123/70 110/56 L Pulse Oximetry 100 99 99 Oxygen Delivery Room Air Nasal Cannula Oxygen Flow Rate 2 11/25/24 16:48 11/25/24 16:58 11/25/24 17:40 Temperature 98.8 F Pulse Rate 84 85 86 Respiratory Rate 16 16 14 Blood Pressure 121/60 112/56 L 134/79 Pulse Oximetry 99 99 100 Oxygen Delivery Room Air Room Air Oxygen Flow Rate 11/25/24 20:00 11/25/24 21:54 11/26/24 06:00 Temperature 98.2 F 98.7 F Pulse Rate 81 82 Respiratory Rate 20 18 Blood Pressure 139/81 147/85 H Pulse Oximetry 92 91 Oxygen Delivery Room Air Oxygen Flow Rate Intake/Output Intake/Output: Intake & Output 11/23/24 11/24/24 11/25/24 11/26/24 23:59 23:59 23:59 23:59 Intake Total 499 2000 1300 0 Output Total 486 511 7992 1350 Balance -51 2542 -255 -3614 Meds/Results Medications: Active Medications Generic Name Dose Route Start Last Admin Trade Name Freq PRN Reason Stop Dose Admin Acetaminophen 650 mg 11/12/24 21:41 Acetaminophen 325 Mg Tablet PO Q4H PRN Mild Pain (1-3) or Fever Apixaban 5 mg 11/19/24 09:00 11/21/24 09:11 Apixaban 5 Mg Tablet PO 5 mg Q12HR APRYL Administration Dextrose 12.5 gm 11/19/24 00:16 11/25/24 12:36 Dextrose 50% 25 Gm/50 Ml Syringe IV PUSH 12.5 gm PRN PRN Administration Hypoglycemia Protocol Glucagon 1 mg 11/19/24 00:16 Glucagon For Inj 1 Mg Vial IM PRN PRN Hypoglycemia Protocol Glucose 15 gm 11/19/24 00:16 Glucose Oral Gel 15 Gm Of Glucse In 37.5 Gm Tube PO PRN PRN Hypoglycemia Protocol Hydralazine HCl 10 mg 11/12/24 22:28 Hydralazine Hcl 20 Mg/Ml Vial IV PUSH Q8H PRN Blood Pressure - High Dextrose/Lactated Ringer's 1,000 mls @ 75 mls/hr 11/23/24 18:45 11/25/24 21:45 Dextrose 5%/Lactated Ringers IV CONT 75 mls/hr .[id number] APRYL Administration Insulin Aspart 2 - 5 units 11/16/24 12:00 11/26/24 09:16 Insulin Aspart (*Bkc) 100 Units/Ml SUB-Q Not Given Q6HR APRYL Protocol Ondansetron HCl 4 mg 11/12/24 21:41 Ondansetron Inj 4 Mg/2 Ml Vial IV PUSH Q4H PRN Nausea Radiology Results: ITS Impressions Head CT 11/12/24 20:46 IMPRESSION: No acute intracranial findings. Abdomen/Pelvis CT 11/12/24 21:13 IMPRESSION: 1. Wound is seen in the area of the sacrum with no definite collection. Surrounding fat stranding is seen. 2. No evidence of appendicitis, diverticulitis or intestinal obstruction. Labs Labs: Laboratory Results - last 24 hr 11/25/24 11/25/24 11/25/24 12:03 14:42 17:53 WBC RBC Hgb Hct MCV MCH MCHC RDW Plt Count MPV Immature Gran % (Auto) Neut % (Auto) Lymph % (Auto) [place] % (Auto) Eos % (Auto) Baso % (Auto) Lymph # (Auto) [place] # (Auto) Eos # (Auto) Baso # (Auto) Abs Immat Gran (auto) Absolute Neuts (auto) Absolute Nucleated RBC Nucleated RBC % Sodium Potassium 3.8 Chloride Carbon Dioxide Anion Gap BUN Creatinine Estim Creat Clear Calc Estimated GFR Glucose POC Capillary Glucose 59 L* 76 Calcium Phosphorus Magnesium 11/25/24 11/26/24 11/26/24 20:35 00:02 05:56 WBC RBC Hgb Hct MCV MCH MCHC RDW Plt Count MPV Immature Gran % (Auto) Neut % (Auto) Lymph % (Auto) [place] % (Auto) Eos % (Auto) Baso % (Auto) Lymph # (Auto) [place] # (Auto) Eos # (Auto) Baso # (Auto) Abs Immat Gran (auto) Absolute Neuts (auto) Absolute Nucleated RBC Nucleated RBC % Sodium Potassium Chloride Carbon Dioxide Anion Gap BUN Creatinine Estim Creat Clear Calc Estimated GFR Glucose POC Capillary Glucose 72 71 98 Calcium Phosphorus Magnesium 11/26/24 05:57 WBC 6.4 RBC 3.55 L Hgb 9.6 L Hct 28.1 L MCV 79.2 L MCH 27.0 MCHC 34.2 RDW 18.9 H Plt Count 448 H MPV 9.6 Immature Gran % (Auto) 0.5 Neut % (Auto) 75.8 H Lymph % (Auto) 13.2 L [place] % (Auto) 6.7 Eos % (Auto) 3.0 Baso % (Auto) 0.8 Lymph # (Auto) 0.85 L [place] # (Auto) 0.4 Eos # (Auto) 0.2 Baso # (Auto) 0.1 Abs Immat Gran (auto) 0.03 Absolute Neuts (auto) 4.9 Absolute Nucleated RBC 0.000 Nucleated RBC % 0.0 Sodium 140 Potassium 3.0 L Chloride 106 Carbon Dioxide 25 Anion Gap 9 BUN 4 L Creatinine 0.55 L Estim Creat Clear Calc 71 Estimated GFR > 60 Glucose 99 POC Capillary Glucose Calcium 9.2 Phosphorus 3.5 Magnesium 1.8
[2024-11-26] MEDS: DEXTROSE 50% 25 GM/50 ML SYRINGE IV PUSH (12:23)
[2024-11-26 14:00] VITALS: BP 117/81; PULSE 92; RESP 16; TEMP 37.2; O2SAT 98
[2024-11-26 21:58] VITALS: BP 121/77; PULSE 91; RESP 16; TEMP 36.9; O2SAT 96
[2024-11-27] MEDS: DEXTROSE 50% 25 GM/50 ML SYRINGE IV PUSH (05:46)
[2024-11-27 06:00] VITALS: BP 119/75; PULSE 93; RESP 18; TEMP 36.7; O2SAT 100
[2024-11-27 08:00] VITALS: PULSE 93; RESP 18; O2SAT 100
--- NOTE | 2024-11-27 09:13 | PCDIET ---
Nutrition note: Bolus feedings: Jevity 1.5 bolus 250 ml QID. 180 ml QID. 1500 kcal, 64, 760 ml free water. Flush 180 ml QID, total water 1480 ml/day. Pt is tolerating Jevity 1.5 @ goal rate 45 ml/h and having bowel movements. See if pt can tolerate bolus feedings before discharging home. Care coordination on board for discharge planning/teaching.
[2024-11-27 11:12] LABS: Hematocrit 27.6 % (37.0-47.0); Hemoglobin 9.5 g/dL (12.0-15.0); Mean Corpuscular HGB Conc 34.4 g/dl (32-36); Mean Corpuscular Hemoglobin 27.1 pg (26-34); Mean Corpuscular Volume 78.9 fl (80-100); Platelet Count Result 444 k/mm3 (150-375); Red Blood Count 3.50 M/mm3 (4.2-5.4); White Blood Count 7.2 K/mm3 (4.5-10.0)
[2024-11-27 11:36] LABS: Triglycerides 74 mg/dL (<150)
[2024-11-27 11:48] LABS: Anion Gap 9 mmol/L (4-12); Blood Urea Nitrogen 9 mg/dL (7-17); Calcium 9.1 mg/dL (8.4-10.2); Carbon Dioxide 23 mmol/L (22-30); Chloride 106 mmol/L (98-107); Estimated CRCL calculation 66 ml/min; Estimated Glomerular Filt Rate > 60; Glucose 107 mg/dL (65-110); Magnesium 1.9 mg/dL (1.6-2.3); Potassium 3.5 mmol/L (3.4-5.0); Sodium 138 mmol/L (137-145)
[2024-11-27 14:00] VITALS: BP 113/70; PULSE 100; RESP 16; TEMP 36.6; O2SAT 100
--- NOTE | 2024-11-27 16:28 | P.PNGI_ITS ---
Progress Note: A&P Assessment and Plan (1) Dysphagia: Qualifiers: Dysphagia type: unspecified Qualified Code(s): R13.10 - Dysphagia, unspecified Code(s): R13.10 - Dysphagia, unspecified Status: Acute Assessment and Plan: on feeding by g-tube no issues will follow as needed (2) Malnutrition: Code(s): E46 - Unspecified protein-calorie malnutrition Status: Acute (3) Anticoagulated by anticoagulation treatment: Code(s): Z79.01 - FDC (current) use of anticoagulants Status: Chronic Assessment and Plan: eliquis on hold, ok to resume tomorrow (4) Paroxysmal atrial fibrillation: Code(s): I48.0 - Paroxysmal atrial fibrillation Status: Chronic (5) Multiple sclerosis: Onset Date: 1997 Code(s): G35 - Multiple sclerosis Status: Chronic (6) Chronic anemia: Code(s): D64.9 - Anemia, unspecified Status: Acute Assessment and Plan: stable Subjective Date/time seen: 11/27/24 16:28 Interval history: on tube feeding by g-tube Review of Systems Review of Systems: All systems reviewed & are unremarkable except as noted in HPI and below Exam Narrative: GENERAL: ill-appearing, in no acute distress. Well-nourished. - EYES: EOMI. Anicteric. - HENT: Moist mucous membranes. - LUNGS: Clear to auscultation bilateral ly, no wheezing, rhonchi, or rales. - CARDIOVASCULAR: Regular rate and rhyth m. No murmur. No JVD. - ABDOMEN: Soft, non-tender and non-dist ended. No palpable masses. Peg tube in- situ, no bleeding - EXTREMITIES: No edema. Peripheral puls es 2+. Non-tender. - NEUROLOGIC: Moving all extremity slig htly - PSYCHIATRIC: Awake, Alert and oriented x 3. Appropriate mood and affect. - SKIN: Sacral decubitus ulcer - LYMPH: No cervical lymphadenopathy. Objective Data Vital Signs Vital Signs: Vital Signs - 24 hr 11/26/24 20:00 11/26/24 21:58 11/27/24 06:00 Temperature 98.4 F 98.1 F Pulse Rate 91 93 Respiratory Rate 16 18 Blood Pressure 121/77 119/75 Pulse Oximetry 96 100 Oxygen Delivery Room Air Fraction of Inspired Oxygen 11/27/24 08:00 11/27/24 14:00 Temperature 97.9 F Pulse Rate 93 100 Respiratory Rate 18 16 Blood Pressure 113/70 Pulse Oximetry 100 100 Oxygen Delivery Room Air Fraction of Inspired Oxygen 21 Intake/Output Intake/Output: Intake & Output 11/24/24 11/25/24 11/26/24 11/27/24 23:59 23:59 23:59 23:59 Intake Total 1999 1300 0 Output Total 675 1950 2100 650 Balance 1325 -650 -2100 -650 Meds/Results Medications: Active Medications Generic Name Dose Route Start Last Admin Trade Name Freq PRN Reason Stop Dose Admin Acetaminophen 650 mg 11/12/24 21:41 Acetaminophen 325 Mg Tablet PO Q4H PRN Mild Pain (1-3) or Fever Apixaban 5 mg 11/19/24 09:00 11/21/24 09:11 Apixaban 5 Mg Tablet PO 5 mg Q12HR APRYL Administration Dextrose 12.5 gm 11/19/24 00:16 11/27/24 05:46 Dextrose 50% 25 Gm/50 Ml Syringe IV PUSH 12.5 gm PRN PRN Administration Hypoglycemia Protocol Glucagon 1 mg 11/19/24 00:16 Glucagon For Inj 1 Mg Vial IM PRN PRN Hypoglycemia Protocol Glucose 15 gm 11/19/24 00:16 Glucose Oral Gel 15 Gm Of Glucse In 37.5 Gm Tube PO PRN PRN Hypoglycemia Protocol Hydralazine HCl 10 mg 11/12/24 22:28 Hydralazine Hcl 20 Mg/Ml Vial IV PUSH Q8H PRN Blood Pressure - High Insulin Aspart 2 - 5 units 11/16/24 12:00 11/27/24 06:03 Insulin Aspart (*Bkc) 100 Units/Ml SUB-Q Not Given Q6HR [facility] Protocol Ondansetron HCl 4 mg 11/12/24 21:41 Ondansetron Inj 4 Mg/2 Ml Vial IV PUSH Q4H PRN Nausea Radiology Results: ITS Impressions Head CT 11/12/24 20:46 IMPRESSION: No acute intracranial findings. Abdomen/Pelvis CT 11/12/24 21:13 IMPRESSION: 1. Wound is seen in the area of the sacrum with no definite collection. Surrounding fat stranding is seen. 2. No evidence of appendicitis, diverticulitis or intestinal obstruction. Labs Labs: Laboratory Results - last 24 hr 11/26/24 11/27/24 11/27/24 17:57 00:13 05:35 WBC RBC Hgb Hct MCV MCH MCHC RDW Plt Count MPV Sodium Potassium Chloride Carbon Dioxide Anion Gap BUN Creatinine Estim Creat Clear Calc Estimated GFR Glucose POC Capillary Glucose 105 95 68 Calcium Magnesium Triglycerides 11/27/24 11/27/24 11:02 11:41 WBC 7.2 RBC 3.50 L Hgb 9.5 L Hct 27.6 L MCV 78.9 L MCH 27.1 MCHC 34.4 RDW 18.7 H Plt Count 444 H MPV 9.7 Sodium 138 Potassium 3.5 Chloride 106 Carbon Dioxide 23 Anion Gap 9 BUN 9 D Creatinine 0.56 L Estim Creat Clear Calc 66 Estimated GFR > 60 Glucose 107 POC Capillary Glucose 100 Calcium 9.1 Magnesium 1.9 Triglycerides 74
--- NOTE | 2024-11-27 17:23 | PM.IMPN ---
Progress Note: A&P Assessment and Plan (1) ESTEFANÍA (acute kidney injury): Code(s): N17.9 - Acute kidney failure, unspecified Status: Acute (2) Abnormal urinalysis: Code(s): R82.90 - Unspecified abnormal findings in urine Status: Acute (3) Dehydration: Code(s): E86.0 - Dehydration Status: Acute (4) Hypernatremia: Code(s): E87.0 - Hyperosmolality and hypernatremia Status: Acute (5) UTI (urinary tract infection): Code(s): N39.0 - Urinary tract infection, site not specified Status: Acute (6) Decubitus ulcer of sacral region, unstageable: Code(s): L89.150 - Pressure ulcer of sacral region, unstageable Status: Chronic Plan UTI (urinary tract infection): Code(s): N39.0 - Urinary tract infection, site not specified Status: Acute Urine culture grows Enterococcus ampicillin started 11/15, ceftriaxone stopped based on urine culture Completed antibiotics treatment Starvation, positive ketone in urine, Dehydration,hypernatremia of 156, hypokalemia of 3.1, BUN of 23 and chloride of 116. Received fluid resuscitation was on NG tube feedings. Peg tube is placed today, patient is on NG tube feeding now Decubitus ulcer of sacral region, unstageable: Code(s): L89.150 - Pressure ulcer of sacral region, unstageable Status: Chronic Assessment and Plan: Consult wound care, appreciate their recommendations CT scan abdomen pelvis did not appreciate any osteomyelitis or abscess formation related to wound. Consider surgery consult should wound start changing in appearance. I48.0 - Paroxysmal atrial fibrillation Status: Chronic Assessment and Plan: Hold Eliquis NPO now-continue lovenox Hypertension: Qualifiers: Hypertension type: primary hypertension Qualified Code(s): Essential (primary) hypertension Code(s): I10 - Essential (primary) hypertension Status: Chronic Assessment and Plan: Continue home medications Adjust medication according to blood pressure Multiple sclerosis: Onset Date: 1997 Code(s): G35 - Multiple sclerosis Status: Chronic Assessment and Plan: Dysphagia: Qualifiers: Dysphagia type: unspecified Qualified Code(s): R13.10 - Dysphagia, unspecified Code(s): R13.10 - Dysphagia, unspecified Status: Acute Assessment and Plan: Patient's son states that he notices she has been pocketing foods in her mouth. Concern for high risk of aspiration. Speech evaluation ordered for swallow eval Patient is on NG tube feeds Patient has end-stage of multiple sclerosis, patient cannot tolerate diet Discussed with patient's and son They agree to proceed PEG tube feeding GI evaluated patient, schedule PEG tube placement on Friday 11/24 patient pulled out NG tube yesterday. NG could not be replaced because we do not have IR over the weekend Restart D5 and lactated Ringer 75 mL/hour. Patient was afebrile, blood pressure stable Patient has hypokalemia, 2.7, today, replete with potassium chloride 40 meq once since PEG tube placement is rescheduled tomorrow 11/25 11/26: Peg tube was placed without complication on tube feeding by g-tube, patient is tolerating continuos feeding while in the hospital, patient will need bolus Gtube feeding at home, will start bolus feeding today to make sure patient is able to tolerate, patient stats feeling better and does not have any complaints. will monitor. Plan to discharge patient to SNF Subjective Date/time seen: 11/27/24 17:23 Interval history: on tube feeding by g-tube, patient is tolerating continuos feeding while in the hospital, patient will need bolus Gtube feeding at home, will start bolus feeding today to make sure patient is able to tolerate, patient stats feeling better and does not have any complaints. will monitor. Review of Systems Review of Systems: All information received was from the son who is at the bedside. All systems reviewed & are unremarkable except as noted in HPI and below ROS unobtainable: Yes other (Unobtainable per patient.) Exam Narrative: Patient is comfortable, NAD HEENT: eyes are clear and none icteric LUNGS:CTA HEART: RR S1S2 ABD: BS+, Soft and nontender Lower extremities: no edema SKIN: nonjaundiced Neuro: grossly intact. Objective Data Vital Signs Vital Signs: Vital Signs - 24 hr 11/26/24 20:00 11/26/24 21:58 11/27/24 06:00 Temperature 36.9 C 36.7 C Pulse Rate 91 93 Respiratory Rate 16 18 Blood Pressure 121/77 119/75 Pulse Oximetry 96 100 Oxygen Delivery Room Air Fraction of Inspired Oxygen 11/27/24 08:00 11/27/24 14:00 Temperature 36.6 C Pulse Rate 93 100 Respiratory Rate 18 16 Blood Pressure 113/70 Pulse Oximetry 100 100 Oxygen Delivery Room Air Fraction of Inspired Oxygen 21 Intake/Output Intake/Output: Intake & Output 11/24/24 11/25/24 11/26/24 11/27/24 23:59 23:59 23:59 23:59 Intake Total 1999 1300 0 Output Total 675 1950 2100 650 Balance 7275 -650 -2100 -650 Meds/Results Medications: Active Medications Generic Name Dose Route Start Last Admin Trade Name Freq PRN Reason Stop Dose Admin Acetaminophen 650 mg 11/12/24 21:41 Acetaminophen 325 Mg Tablet PO Q4H PRN Mild Pain (1-3) or Fever Apixaban 5 mg 11/19/24 09:00 11/21/24 09:11 Apixaban 5 Mg Tablet PO 5 mg Q12HR APRYL Administration Dextrose 12.5 gm 11/19/24 00:16 11/27/24 05:46 Dextrose 50% 25 Gm/50 Ml Syringe IV PUSH 12.5 gm PRN PRN Administration Hypoglycemia Protocol Glucagon 1 mg 11/19/24 00:16 Glucagon For Inj 1 Mg Vial IM PRN PRN Hypoglycemia Protocol Glucose 15 gm 11/19/24 00:16 Glucose Oral Gel 15 Gm Of Glucse In 37.5 Gm Tube PO PRN PRN Hypoglycemia Protocol Hydralazine HCl 10 mg 11/12/24 22:28 Hydralazine Hcl 20 Mg/Ml Vial IV PUSH Q8H PRN Blood Pressure - High Insulin Aspart 2 - 5 units 11/16/24 12:00 11/27/24 16:32 Insulin Aspart (*Bkc) 100 Units/Ml SUB-Q Not Given Q6HR [facility] Protocol Ondansetron HCl 4 mg 11/12/24 21:41 Ondansetron Inj 4 Mg/2 Ml Vial IV PUSH Q4H PRN Nausea Radiology Results: ITS Impressions Head CT 11/12/24 20:46 IMPRESSION: No acute intracranial findings. Abdomen/Pelvis CT 11/12/24 21:13 IMPRESSION: 1. Wound is seen in the area of the sacrum with no definite collection. Surrounding fat stranding is seen. 2. No evidence of appendicitis, diverticulitis or intestinal obstruction. Labs Labs: Laboratory Results - last 24 hr 11/26/24 11/27/24 11/27/24 17:57 00:13 05:35 WBC RBC Hgb Hct MCV MCH MCHC RDW Plt Count MPV Sodium Potassium Chloride Carbon Dioxide Anion Gap BUN Creatinine Estim Creat Clear Calc Estimated GFR Glucose POC Capillary Glucose 105 95 68 Calcium Magnesium Triglycerides 11/27/24 11/27/24 11:02 11:41 WBC 7.2 RBC 3.50 L Hgb 9.5 L Hct 27.6 L MCV 78.9 L MCH 27.1 MCHC 34.4 RDW 18.7 H Plt Count 444 H MPV 9.7 Sodium 138 Potassium 3.5 Chloride 106 Carbon Dioxide 23 Anion Gap 9 BUN 9 D Creatinine 0.56 L Estim Creat Clear Calc 66 Estimated GFR > 60 Glucose 107 POC Capillary Glucose 100 Calcium 9.1 Magnesium 1.9 Triglycerides 74 Quality VTE Prophylaxis VTE prophylaxis: pharmacologic ordered
[2024-11-27 20:00] VITALS: PULSE 93; RESP 16; O2SAT 100
[2024-11-27 20:45] VITALS: BP 111/71; PULSE 93; RESP 16; TEMP 36.2; O2SAT 100
[2024-11-27 21:25] VITALS: O2SAT 100
[2024-11-28 05:54] VITALS: BP 125/73; PULSE 108; RESP 20; TEMP 36.4; O2SAT 98
[2024-11-28 06:12] LABS: Hematocrit 25.8 % (37.0-47.0); Hemoglobin 8.8 g/dL (12.0-15.0); Immature Granulocyte Percent A 0.4 % (0-0.5); Lymphocytes Absolute Auto 1.05 K/mm3 (0.9-3.2); Mean Corpuscular HGB Conc 34.1 g/dl (32-36); Mean Corpuscular Hemoglobin 27.0 pg (26-34); Mean Corpuscular Volume 79.1 fl (80-100); Nucleated Red Blood Cells Absolute Auto 0.000 K/mm3 (0.0-0.012); Nucleated Red Blood Cells Perc 0.0 % (0.0-0.2); Platelet Count Result 442 k/mm3 (150-375); Red Blood Count 3.26 M/mm3 (4.2-5.4); White Blood Count 7.4 K/mm3 (4.5-10.0)
[2024-11-28 06:28] LABS: Alanine Aminotransferase 9 U/L (6-35); Albumin Level 2.9 g/dL (3.5-5.1); Alkaline Phosphatase 78 U/L (38-126); Anion Gap 8 mmol/L (4-12); Aspartate Amino Transferase 22 U/L (14-36); Bilirubin,Total 0.3 mg/dL (0.2-1.3); Blood Urea Nitrogen 20 mg/dL (7-17); Calcium 9.2 mg/dL (8.4-10.2); Carbon Dioxide 25 mmol/L (22-30); Chloride 104 mmol/L (98-107); Estimated CRCL calculation 60 ml/min; Estimated Glomerular Filt Rate > 60; Glucose 109 mg/dL (65-110); Magnesium 1.9 mg/dL (1.6-2.3); Potassium 3.6 mmol/L (3.4-5.0); Sodium 137 mmol/L (137-145); Total Protein 7.0 g/dL (6.3-8.2)
[2024-11-28 08:00] VITALS: PULSE 108; RESP 20; O2SAT 98
[2024-11-28 14:00] VITALS: BP 121/72; PULSE 108; RESP 16; TEMP 36.4; O2SAT 100
--- NOTE | 2024-11-28 14:59 | PM.DS ---
DS: Admitting Diagnosis Discharge Date 11/28/2024 Admitting Diagnosis Wound check DS: Discharge Diagnosis Discharge Diagnosis (1) ESTEFANÍA (acute kidney injury): Code(s): N17.9 - Acute kidney failure, unspecified Status: Acute (2) Abnormal urinalysis: Code(s): R82.90 - Unspecified abnormal findings in urine Status: Acute (3) Dehydration: Code(s): E86.0 - Dehydration Status: Acute (4) Hypernatremia: Code(s): E87.0 - Hyperosmolality and hypernatremia Status: Acute (5) UTI (urinary tract infection): Code(s): N39.0 - Urinary tract infection, site not specified Status: Acute (6) Decubitus ulcer of sacral region, unstageable: Code(s): L89.150 - Pressure ulcer of sacral region, unstageable Status: Chronic Plan UTI (urinary tract infection): Code(s): N39.0 - Urinary tract infection, site not specified Status: Acute Urine culture grows Enterococcus ampicillin started 11/15, ceftriaxone stopped based on urine culture Completed antibiotics treatment Starvation, positive ketone in urine, Dehydration,hypernatremia of 156, hypokalemia of 3.1, BUN of 23 and chloride of 116. Received fluid resuscitation was on NG tube feedings. Peg tube is placed today, patient is on NG tube feeding now Decubitus ulcer of sacral region, unstageable: Code(s): L89.150 - Pressure ulcer of sacral region, unstageable Status: Chronic Assessment and Plan: Consult wound care, appreciate their recommendations CT scan abdomen pelvis did not appreciate any osteomyelitis or abscess formation related to wound. Consider surgery consult should wound start changing in appearance. I48.0 - Paroxysmal atrial fibrillation Status: Chronic Assessment and Plan: Hold Eliquis NPO now-continue lovenox Hypertension: Qualifiers: Hypertension type: primary hypertension Qualified Code(s): Essential (primary) hypertension Code(s): I10 - Essential (primary) hypertension Status: Chronic Assessment and Plan: Continue home medications Adjust medication according to blood pressure Multiple sclerosis: Onset Date: 1997 Code(s): G35 - Multiple sclerosis Status: Chronic Assessment and Plan: Dysphagia: Qualifiers: Dysphagia type: unspecified Qualified Code(s): R13.10 - Dysphagia, unspecified Code(s): R13.10 - Dysphagia, unspecified Status: Acute Assessment and Plan: Patient's son states that he notices she has been pocketing foods in her mouth. Concern for high risk of aspiration. Speech evaluation ordered for swallow eval Patient is on NG tube feeds Patient has end-stage of multiple sclerosis, patient cannot tolerate diet Discussed with patient's and son They agree to proceed PEG tube feeding GI evaluated patient, schedule PEG tube placement on Friday 11/24 patient pulled out NG tube yesterday. NG could not be replaced because we do not have IR over the weekend Restart D5 and lactated Ringer 75 mL/hour. Patient was afebrile, blood pressure stable Patient has hypokalemia, 2.7, today, replete with potassium chloride 40 meq once since PEG tube placement is rescheduled tomorrow 11/25 11/26: Peg tube was placed without complication on tube feeding by g-tube, patient is tolerating continuos feeding while in the hospital, patient will need bolus Gtube feeding at home, will start bolus feeding today to make sure patient is able to tolerate, patient stats feeling better and does not have any complaints. will monitor. Plan to discharge patient to SNF DS: Summary Hospital Course Hospital Course: Patient is a 64 year old female with a longstanding history of advanced multiple sclerosis and oropharyngeal dysphagia. She is currently depending on nasogastric tube for feeding. this has resulted in chronic starvation and malnutrition resulting in a decubitus ulcer. patient was seen by GI and recommended PEG which will improve her nutrition and possible help heal her wounds, patient had PEG placed. Now on tube feeding by g-tube, patient is tolerating continuos feeding while in the hospital, patient will need start on bolus Gtube feeding at home, started bolus feeding to make sure patient is able to tolerate, patient stats feeling better and does not have any complaints. will discharge home with homehealth. Time Spent with Patient Time attestation: Total time spent providing and/or coordinating discharge services: Exam Narrative: Patient is comfortable, NAD HEENT: eyes are clear and none icteric LUNGS:CTA HEART: RR S1S2 ABD: BS+, Soft and nontender Lower extremities: no edema SKIN: nonjaundiced Neuro: grossly intact. DS: Data Data Completed and Pending Labs on day of discharge: Labs from last 24 hours 11/28/24 11/28/24 11/28/24 11:14 05:56 05:40 WBC 7.4 RBC 3.26 L Hgb 8.8 L Hct 25.8 L MCV 79.1 L MCH 27.0 MCHC 34.1 RDW 18.1 H Plt Count 442 H MPV 10.0 Immature Gran % (Auto) 0.4 Neut % (Auto) 73.9 H Lymph % (Auto) 14.2 L [place] % (Auto) 7.8 Eos % (Auto) 3.0 Baso % (Auto) 0.7 Lymph # (Auto) 1.05 [place] # (Auto) 0.6 Eos # (Auto) 0.2 Baso # (Auto) 0.1 Abs Immat Gran (auto) 0.03 Absolute Neuts (auto) 5.5 Absolute Nucleated RBC 0.000 Nucleated RBC % 0.0 Sodium 137 Potassium 3.6 Chloride 104 Carbon Dioxide 25 Anion Gap 8 BUN 20 H D Creatinine 0.62 L Estim Creat Clear Calc 60 Estimated GFR > 60 Glucose 109 POC Capillary Glucose 97 97 Calcium 9.2 Magnesium 1.9 Total Bilirubin 0.3 AST 22 ALT 9 Alkaline Phosphatase 78 Total Protein 7.0 Albumin 2.9 L 11/28/24 11/27/24 00:10 18:39 WBC RBC Hgb Hct MCV MCH MCHC RDW Plt Count MPV Immature Gran % (Auto) Neut % (Auto) Lymph % (Auto) [place] % (Auto) Eos % (Auto) Baso % (Auto) Lymph # (Auto) [place] # (Auto) Eos # (Auto) Baso # (Auto) Abs Immat Gran (auto) Absolute Neuts (auto) Absolute Nucleated RBC Nucleated RBC % Sodium Potassium Chloride Carbon Dioxide Anion Gap BUN Creatinine Estim Creat Clear Calc Estimated GFR Glucose POC Capillary Glucose 92 77 Calcium Magnesium Total Bilirubin AST ALT Alkaline Phosphatase Total Protein Albumin Discharge Plan Discharge Attending physician on discharge: Leelee Toledo Consulting providers: Albino Gallego; Abdulaziz Mccracken; Massiel Mckenna; Michael Washburn; Marquise Thompson; Katherin Anthony; Grover Beckwith; Usman Bains Discharging Clinician: Dieter Denney Patient Disposition: Home with Home Health Service Activity: as tolerated Diet: tube feeding Discharge Instructions: Per Care Coordination: [facility] will resume services at discharge. [facility] will follow for career education teacher and tube feed education. [facility] can be contacted at [phone]. Nursing please fax paperwork to [phone]. Tube feeds and supplies were arranged through [employer]. You met with their Rep Nakia for teaching and education. Nakia is available at [phone]. You can also call [facility] directly at patient to follow up with her primary care provider as soon as possible, patient is instructed if any symptoms redevelop to go to nearest ER. Patient Instructions: Antibiotic Form Patient Language: Armenian Stand Alone Forms: General Discharge Information Follow-up/Referrals: Trish Luciano, YULIYA [Primary Care Provider] - Discharge Medications: Continued valacyclovir [Valtrex] 500 mg Tablet 1,000 mg PO Q12HR Qty: 17 0RF polyethylene glycol 3350 [ClearLax] 17 gram/dose powder 4 g PO DAILY Eliquis 5 mg Tablet 5 mg PO Q12HR Qty: 60 0RF Rx Instructions: please start taking Eliquis 5mg PO BID from 11/05 dimethyl fumarate [Tecfidera] 240 mg capsule,delayed release(DR/EC) 240 mg PO BID Qty: 180 0RF Date of admission: 11/12/24 21:41 Primary Care Provider: Trish Luciano Admitting Provider: Dieter Denney Attending physician on admission: Leelee Toledo Condition: Stable
--- NOTE | 2024-11-28 16:47 | PC.NURSE ---
Son, BREA, called at home to educate regarding discharge instructions. Verbalized understanding. Awaiting ambulance for transfer home.
--- NOTE | 2024-11-28 16:56 | PC.NURSE ---
Dressings changed and tube feeding given at this time before pt discharge.
== END 2024-11-28 19:23 | disposition home health service (06) | DRG 689 ==
LOC: ANHED 21:50 → ANH3MEDSUR 22:25
PROVIDERS: Hospitalist; Internal Medicine Gastroenterology; Nurse Practitioner; Nurse Practitioner Adult Health; Admitting Provider Family Medicine; Emergency Provider Student in an Organized Health Care Education/Training Program; PCP Nurse Practitioner Family; Visit Provider Internal Medicine
PROC: 0DH63UZ Insertion of Feeding Device into Stomach, Percutaneous Approach (ICD-10-PCS; CPT 43246; principal; 2024-11-25 14:15)
DX: N39.0 Urinary tract infection, site not specified (principal); E43 Unspecified severe protein-calorie malnutrition; N17.9 Acute kidney failure, unspecified; E87.29 Other acidosis; E87.0 Hyperosmolality and hypernatremia; Z68.1 Body mass index [BMI] 19.9 or less, adult; G35 Multiple sclerosis; L89.150 Pressure ulcer of sacral region, unstageable; R13.12 Dysphagia, oropharyngeal phase; B95.2 Enterococcus as the cause of diseases classified elsewhere; E87.6 Hypokalemia; E86.0 Dehydration; I48.0 Paroxysmal atrial fibrillation; I10 Essential (primary) hypertension; T73 Effects of other deprivation; Z79.01 Long term (current) use of anticoagulants; Z86.718 Personal history of other venous thrombosis and embolism
CPT/HCPCS: 36410; 36415; 43246; 43752; 70450; 74177; 80048; 80053; 81001; 82728; 82948; 83605; 83735; 84100; 84132; 84466; 84478; 85025; 85027; 85610; 85730; 87086; 87181; 92610; 93005; 96361; 96365; 96375; 99291; A9270; C1751; J0290; J0690; J0696; J1171; J1650; J2003; J2704; J3360; J3373; J3475; J3480; J7040; J7120; J7121; Q9967

== ENCOUNTER 2024-12-12 09:26 | Outpatient (RCR) | payer MEDICARE, MEDICAID, SELFPAY ==
--- NOTE | 2024-12-12 09:34 | WNDPHOTO ---
PHOTO ONLY - See Nursing Notes and/ or assessments for documentation.
[2024-12-12 10:07] VITALS: BMI 18.1
== END 2025-03-03 08:18 | disposition home or self-care (01) ==
LOC: ANHWOC 09:26
PROVIDERS: PCP Nurse Practitioner Family; Visit Provider Surgery
DX: Z48.00 Encounter for change or removal of nonsurgical wound dressing (principal); L89.110 Pressure ulcer of right upper back, unstageable
CPT/HCPCS: 99213; G0463

== ENCOUNTER 2024-12-19 17:18 | Inpatient (IN) | payer MEDICARE, MEDICAID, SELFPAY ==
--- NOTE | ~2024-12-19 | XR_ITS ---
XR chest 1V portable 12/27/2024 12:50 Indication: Pneumonia Procedure: AP portable chest Comparison: Comparison to multiple prior studies sequentially, with oldest reviewed study dated 11/2024. Findings: Chronic elevation right diaphragm. There is consolidation right lung base which may represe nt pneumonia and/or atelectasis. There is scoliosis. No significant effusion or pneumothorax. Impression: 1: Persistent right basilar airspace consolidation which may represent atelectasis and/or pneumonia. Reviewed, dictated and finalized at location A. Impression: 1: Persistent right basilar airspace consolidation which may represent atelecta sis and/or pneumonia.
--- NOTE | ~2024-12-19 | XR_ITS ---
EXAMINATION: XR chest 1V portable DATE: 12/21/2024 05:05 INDICATION: Possible aspiration TECHNIQUE: frontal view of the chest was obtained. COMPARISON: Chest radiograph dated 12/19/2024 FINDINGS: Persistent elevation of the right hemidiaphragm. Persistent opacities at the right lung base most lik ramírez secondary atelectasis although differential includes aspiration or pneumonia. No pleural effusion or pneumothorax. Heart size is normal. Moderate thoracolumbar levoscoliosis. IMPRESSION: 1. Unchanged right basilar opacities with elevation of the right hemidiaphragm, most likely atelectas is although differential includes aspiration or pneumonia. Reviewed, dictated and finalized at location A. IMPRESSION: 1. Unchanged right basilar opacities with elevation of the right hemidiaphragm, most likely atelectasis although differential includes aspiration or pneumonia .
--- NOTE | ~2024-12-19 | XR_ITS ---
XR chest 1V portable 12/24/2024 05:29 Indication: Hypoxia Procedure: AP portable chest Comparison: Comparison to multiple prior studies sequentially, with oldest reviewed study dated 01/2025. Findings: Elevation of the right diaphragm is unchanged. There are developing bibasilar infiltrates w ith bandlike opacity right perihilar location. There is some pulmonary vascular indistinctness. No pn eumothorax or significant effusion. Impression: 1: Developing bilateral airspace disease with bandlike opacities of the right mid and lower lung. Dif ferential diagnosis includes edema, pneumonia and/or atelectasis. Reviewed, dictated and finalized at location A. Impression: 1: Developing bilateral airspace disease with bandlike opacities of the right m id and lower lung. Differential diagnosis includes edema, pneumonia and/or atel ectasis.
--- NOTE | ~2024-12-19 | XR_ITS ---
CHEST RADIOGRAPH CLINICAL HISTORY: sepsis, AMS . COMPARISON: 10/23/2024 TECHNIQUE: Single portable view of the chest. FINDINGS S shaped curvature of the thoracolumbar spine is present. Cardiomediastinal silhouette is partially obscured. Interval development of significant elevation of the right hemidiaphragm with adjacent compressive at electasis. The remainder of the lungs are clear. IMPRESSION: Interval development of significant right hemidiaphragmatic elevation with adjacent compressive atele ctasis. Reviewed, dictated and finalized at location A. IMPRESSION: Interval development of significant right hemidiaphragmatic elevation with yoel cent compressive atelectasis.
--- NOTE | ~2024-12-19 | XR_ITS ---
EXAMINATION: XR chest 1V portable DATE: 12/23/2024 15:30 INDICATION: Cough TECHNIQUE: frontal view of the chest was obtained. COMPARISON: Chest radiograph dated 12/21/2024 FINDINGS: Patient is rotated towards the right. Lung volumes are small particularly on the right where there is increased elevation right hemidiaphragm when compared with the earlier studies. Airspace opacities i n the right lower lung zone more likely the right middle lobe and in the right lower lobe which could represent atelectasis or pneumonia. Left lung remains clear. No pulmonary edema, pleural effusion or pneumothorax. Heart size is normal. Thoracolumbar levoscoliosis. IMPRESSION: 1. Increasing volume loss the right hemithorax and increased opacities in the right lower lung zone w hich could represent atelectasis or pneumonia. Reviewed, dictated and finalized at location A. IMPRESSION: 1. Increasing volume loss the right hemithorax and increased opacities in the r ight lower lung zone which could represent atelectasis or pneumonia.
[2024-12-19 17:16] VITALS: BP 119/75; PULSE 104; RESP 12; TEMP 36.6; O2SAT 99
--- NOTE | 2024-12-19 17:30 | ECG_ITS ---
Test Date: 2024-12-19 18:39:03 Measurements Intervals [place] Rate: 111 P: 22 MI: 111 QRS: -42 QRSD: 88 T: 19 QT: 340 QTc: 463 Interpretive Statements SINUS TACHYCARDIA WITH SHORT MI INTERVAL LEFT AXIS DEVIATION BORDERLINE ST-T WAVE ABNORMALITY- INFERIOR LEADS BASELINE WANDER- II, III, AVF, V4-V6 ABNORMAL ECG Compared to ECG 11/19/2024 23:58:30 NO SIGNIFICANT CHANGE Electronically Signed On 12-19-2024 20:17:52 CDT by Huber Brunson D.O.
[2024-12-19 17:50] LABS: Hematocrit 32.0 % (37.0-47.0); Hemoglobin 10.6 g/dL (12.0-15.0); Immature Granulocyte Percent A 0.4 % (0-0.5); Lymphocytes Absolute Auto 1.59 K/mm3 (0.9-3.2); Mean Corpuscular HGB Conc 33.1 g/dl (32-36); Mean Corpuscular Hemoglobin 27.2 pg (26-34); Mean Corpuscular Volume 82.3 fl (80-100); Nucleated Red Blood Cells Absolute Auto 0.000 K/mm3 (0.0-0.012); Nucleated Red Blood Cells Perc 0.0 % (0.0-0.2); Platelet Count Result 533 k/mm3 (150-375); Red Blood Count 3.89 M/mm3 (4.2-5.4); White Blood Count 9.6 K/mm3 (4.5-10.0)
[2024-12-19 18:03] VITALS: PULSE 105
[2024-12-19 18:04] LABS: INR 1.1; Prothrombin Time 14.6 Seconds (11.1-14.7)
[2024-12-19 18:05] LABS: Alanine Aminotransferase 12 U/L (6-35); Albumin Level 3.5 g/dL (3.5-5.1); Alkaline Phosphatase 73 U/L (38-126); Anion Gap 8 mmol/L (4-12); Aspartate Amino Transferase 22 U/L (14-36); Bilirubin,Total 0.4 mg/dL (0.2-1.3); Blood Urea Nitrogen 19 mg/dL (7-17); Calcium 9.6 mg/dL (8.4-10.2); Carbon Dioxide 29 mmol/L (22-30); Chloride 104 mmol/L (98-107); Estimated CRCL calculation 51 ml/min; Estimated Glomerular Filt Rate > 60; Glucose 106 mg/dL (65-110); Partial Thromboplastin Time 31.5 Seconds (22.3-36.8); Potassium 3.9 mmol/L (3.4-5.0); Sodium 141 mmol/L (137-145); Total Protein 8.3 g/dL (6.3-8.2)
--- OUTSIDE RECORDS SUMMARY | 2024-12-19 18:07 | XMS_ITS | Clinical Summary ---
Author Organization Unknown Care Team Providers Care Technician [employer] Name Role Phone MELIDA SWAN Unavailable U navailable GLENN FITTER AND TURNER, SCOTT Unavailable Unavailabl e TASHA OT, GABE Unavailable Unavailable MARIE PT, MARGARET Unavailable Unavailable DAVI RN, ANTONIETA Unavailable Unavailabl e [employer] SUB[employer]/MALAVE, JEANNE Unavailable Unavaila ble WENDY KUMARN, BRADLEY Unavailable Unavailable Payers Payer Name Policy Type Policy Number Effective Date Expira tion Date MEDICARE[facility] [id number] Problems Condition Name Condition Details Condition Category Status Onset Date Resolution Date Last Treatment Date Treating Clinician Comments 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[place], STAGE 4 Active 11-29 00:00: 00 LAC W/O FB OF ABD WALL, LEFT LOW Q W/O PENET PERIT CAV, SUBS Active 11-29 00:00: 00 UNSPECIFIED PROTEIN-CRYSTAL OMKAR MALNUTRITION Active 11-29 00:00: 00 URINARY TRACT INFECTION, SITE NOT SPECIFIED Active 11-29 00:00: 00 ENCOUNTER FOR FITTING AND ADJUSTMENT OF URINARY DEVICE Active 11-28 00:00: 00 ENCOUNTER FOR ATTENTION TO GASTROSTOMY Active 11-28 00:00: 00 ACUTE PAIN DUE TO TRAUMA Active 11-29 00:00: 00 OTHER CONSTIPATION Active 11-28 00:00: 00 MULTIPLE SCLEROSIS Active 11-28 00:00: 00 ACUTE KIDNEY FAILURE, UNSPECIFIED Active 11-28 00:00: 00 DEHYDRATION Active 11-28 00:00: 00 HYPO-OSMOLAL ITY AND HYPONATREMIA Active 11-28 00:00: 00 ESSENTIAL (PRIMARY) HYPERTENSION Active 10-04 00:00: 00 PAROXYSMAL ATRIAL FIBRILLATION Active 10-04 00:00: 00 VENOUS INSUFFICIENC Y (CHRONIC) (PERIPHERAL) Active 10-04 00:00: 00 HERPESVIRAL VULVOVAGINIT IS Active 10-04 00:00: 00 METABOLIC ENCEPHALOPAT HY Active 10-04 00:00: 00 VITAMIN D DEFICIENCY, UNSPECIFIED Active 10-04 00:00: 00 HISTORY OF FALLING Active 10-04 00:00: 00 PERSONAL HISTORY OF PNEUMONIA (RECURRENT) Active 11-12 00:00: 00 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 Ordering Clinician Indication Dosage Frequency Signature (SIG) Comments Components Cranberry Concentrate 500 mg capsule 2023-05 00:00: 00 11-29 23:59 :00 No [id number] URINARY HEALTH 1 capsule DAILY 1 capsule DAILY (route: oral) Med Classific ation: Alternati ve Therapy dimethyl fumarate 240 mg capsule,del ayed release 2023-05 016 00:00: 00 Yes [id number] MULTIPLE SCLOROSIS 1 capsule 2 TIMES DAILY 1 capsule 2 TIMES DAILY (route: oral) Med Classific ation: Multiple Sclerosis Agents lisinopril 5 mg tablet 07 00:00: 00 10-17 23:59 :00 No [id number] BLOOD PRESSURE 1 tablet DAILY 1 tablet DAILY (route: oral) Med Classific ation: Cardiovas cular Therapy Agents valacyclovi r 500 mg tablet 2023-05 0-09 00:00: 00 11-29 00:00 :00 No [id number] PREVENT VIRAL INFECTION 2 tablet EVERY 12 HOURS 2 tablet EVERY 12 HOURS (route: oral) Med Classific ation: Anti-Infe ctive Agents Advil 200 mg tablet 6 00:00: 00 11-29 00:00 :00 No [id number] PAIN 200 mg DIRECTED 200 mg DIRECTED (route: oral) Med Classific ation: Analgesic , Anti-infl ammatory or Antipyret ic Miralax 17 gram/dose oral powder 10-14 00:00: 00 Yes [id number] CONSTIPATIO N 17 gram DAILY 17 gram DAILY (route: oral) Med Classific ation: Gastroint estinal Therapy Agents dimethyl fumarate 240 mg capsule,del ayed release 12-03 00:00: 00 Yes [id number] MS 1 capsule 2 TIMES DAILY 1 capsule 2 TIMES DAILY (route: oral) Alternate Route: PEG TUBE. Med Classific ation: Multiple Sclerosis Agents Eliquis 5 mg tablet 12-03 00:00: 00 Yes [id number] BLOOD THINNER 1 tablet EVERY 12 HOURS 1 tablet EVERY 12 HOURS (route: oral) Med Classific ation: Hematolog ical Agents Miralax 17 gram/dose oral powder 12-03 00:00: 00 Yes [id number] CONSTIPATIO N 17 gram DAILY 17 gram DAILY (route: oral) Alternate Route: PEG TUBE. Med Classific ation: Gastroint estinal Therapy Agents Valtrex 500 mg tablet 12-03 00:00: 00 Yes [id number] PREVENT VIRAL INFECTION 1 tablet EVERY 12 HOURS 1 tablet EVERY 12 HOURS (route: oral) Alternate Route: PEG TUBE. Med Classific ation: Anti-Infe ctive Agents Immunizations Ordered Immunization Name Filled Immunization Name Date Status Comments Refusal Reason DOSE #2, COVID-19 VACCINE 2020-06-24 00:00:00 Vital Signs Vital Name Observation Time Observation Value Commen ts Temperature 2024-12-15 15:49:00.000 98.7 [degF] Temperature 2024-12-13 12:36:00.000 97 [degF] Temperature 2024-12-10 15:12:00.000 98.4 [degF] Temperature 2024-12-06 16:19:00.000 98.2 [degF] Temperature 2024-12-03 14:58:00.000 98.6 [degF] Pulse 2024-12-15 15:49:00.000 74 /min Pulse 2024-12-13 12:36:00.000 96 /min Pulse 2024-12-10 15:12:00.000 94 /min Pulse 2024-12-06 16:19:00.000 92 /min Pulse 2024-12-03 14:58:00.000 86 /min O2 Saturation (%) 2024-12-15 15:49:00.000 95 % O2 Saturation (%) 2024-12-13 12:36:00.000 97 % O2 Saturation (%) 2024-12-10 15:12:00.000 98 % O2 Saturation (%) 2024-12-06 16:19:00.000 98 % O2 Saturation (%) 2024-12-03 14:58:00.000 97 % Respirations 2024-12-15 15:49:00.000 18 /min Respirations 2024-12-13 12:36:00.000 18 /min Respirations 2024-12-10 15:12:00.000 16 /min Respirations 2024-12-06 16:19:00.000 16 /min Respirations 2024-12-03 14:58:00.000 16 /min Systolic Blood Pressure 2024-12-15 15:49:00.000 107 mm [Hg] Systolic Blood Pressure 2024-12-13 12:36:00.000 118 mm [Hg] Systolic Blood Pressure 2024-12-10 15:12:00.000 136 mm [Hg] Systolic Blood Pressure 2024-12-06 16:19:00.000 122 mm [Hg] Systolic Blood Pressure 2024-12-03 14:58:00.000 106 mm [Hg] Diastolic Blood Pressure 2024-12-15 15:49:00.000 81 mm [Hg] Diastolic Blood Pressure 2024-12-13 12:36:00.000 84 mm [Hg] Diastolic Blood Pressure 2024-12-10 15:12:00.000 74 mm [Hg] Diastolic Blood Pressure 2024-12-06 16:19:00.000 78 mm [Hg] Diastolic Blood Pressure 2024-12-03 14:58:00.000 62 mm [Hg] Plan of Treatment Planned Activity Planned Date Details Comments Future Scheduled Test RN TO OBSE RVE, ASSESS, EVALUATE, AND DEVELOP AN INDIVIDUALIZED PLAN OF CARE. AGENCY MAY ACCEPT ORDERS FROM CONSULTING PHYSICIANS. RN TO OBSERVE AND ASSESS, CLINICAL RN LIAISON/CAREER GUIDANCE TECHNICIAN TO OBSERVE FOR RISK FOR FALLS AND INSTRUCT IN FALL PREVENTION, HOME SAFETY, MEDICATION MANAGEMENT, INFECTION PREVENTION, AND NUTRITION MANAGEMENT. RN/CLINICAL RN LIAISON/CAREER GUIDANCE TECHNICIAN NURSE MAY PERFORM O2 SATURATION LEVEL. RN TO ASSESS/CLINICAL RN LIAISON TO OBSERVE PATIENT, WITH NOTIFICATION TO THE PHYSICIAN IF SATURATION IS 90% IN THE ABSENCE OF MORE SPECIFIC PARAMETERS FROM THE PHYSICIAN. AGENCY MAY PERFORM A RESUMPTION OF CARE VISIT FOLLOWING ANY HOSPITAL ADMISSION. RN/CLINICAL RN LIAISON/CAREER GUIDANCE TECHNICIAN TO MONITOR CO-MORBID CONDITIONS LISTED ON THE PLAN OF CARE AND ANY NEW CONDITIONS THAT PRESENT THEMSELVES DURING THIS EPISODE TO IDENTIFY CHANGES AND INTERVENE TO MINIMIZE COMPLICATIONS. [code = RN TO OBSERVE, ASSESS, EVALUATE, AND DEVELOP AN INDIVIDUALIZED PLAN OF CARE. AGENCY MAY ACCEPT ORDERS FROM CONSULTING PHYSICIANS. RN TO OBSERVE AND ASSESS, CLINICAL RN LIAISON/CAREER GUIDANCE TECHNICIAN TO OBSERVE FOR RISK FOR FALLS AND INSTRUCT IN FALL PREVENTION, HOME SAFETY, MEDICATION MANAGEMENT, INFECTION PREVENTION, AND NUTRITION MANAGEMENT. RN/CLINICAL RN LIAISON/CAREER GUIDANCE TECHNICIAN NURSE MAY PERFORM O2 SATURATION LEVEL. RN TO ASSESS/CLINICAL RN LIAISON TO OBSERVE PATIENT, WITH NOTIFICATION TO THE PHYSICIAN IF SATURATION IS 90% IN THE ABSENCE OF MORE SPECIFIC PARAMETERS FROM THE PHYSICIAN. AGENCY MAY PERFORM A RESUMPTION OF CARE VISIT FOLLOWING ANY HOSPITAL ADMISSION. RN/CLINICAL RN LIAISON/CAREER GUIDANCE TECHNICIAN TO MONITOR CO-MORBID CONDITIONS LISTED ON THE PLAN OF CARE AND ANY NEW CONDITIONS THAT PRESENT THEMSELVES DURING THIS EPISODE TO IDENTIFY CHANGES AND INTERVENE TO MINIMIZE COMPLICATIONS.] Future Scheduled Test MEDICATION MANAGEMENT; RN/CLINICAL RN LIAISON/CAREER GUIDANCE TECHNICIAN TO REVIEW MEDICATIONS FOR INTERACTIONS, EFFECTIVENESS OF DRUG THERAPY, AND SIGNS/SYMPTOMS OF ADVERSE REACTIONS. MAY INSTRUCT AND REINFORCE MEDICATION TEACHING RELATED TO THE USE OF MEDICATIONS, DOSAGE, FREQUENCY, PURPOSE, SIDE EFFECTS, AND TO REPORT COMPLICATIONS. [code = MEDICATION MANAGEMENT; RN/CLINICAL RN LIAISON/CAREER GUIDANCE TECHNICIAN TO REVIEW MEDICATIONS FOR INTERACTIONS, EFFECTIVENESS OF DRUG THERAPY, AND SIGNS/SYMPTOMS OF ADVERSE REACTIONS. MAY INSTRUCT AND REINFORCE MEDICATION TEACHING RELATED TO THE USE OF MEDICATIONS, DOSAGE, FREQUENCY, PURPOSE, SIDE EFFECTS, AND TO REPORT COMPLICATIONS.] Future Scheduled Test RISK FOR H OSPITALIZATION; RN TO ASSESS/TEACH, CAREER GUIDANCE TECHNICIAN/CLINICAL RN LIAISON TO OBSERVE/TEACH PATIENT/CAREGIVER ON RISK FOR HOSPITALIZATION/EMERGENCY ROOM VISITS, TEACH SIGNS AND SYMPTOMS THAT PUT PATIENT AT RISK, WHEN TO NOTIFY NURSE/PHYSICIAN OF COMPLICATIONS/DECLINE, AND WHEN TO CALL 911. [code = RISK FOR HOSPITALIZATION; RN TO ASSESS/TEACH, CAREER GUIDANCE TECHNICIAN/CLINICAL RN LIAISON TO OBSERVE/TEACH PATIENT/CAREGIVER ON RISK FOR HOSPITALIZATION/EMERGENCY ROOM VISITS, TEACH SIGNS AND SYMPTOMS THAT PUT PATIENT AT RISK, WHEN TO NOTIFY NURSE/PHYSICIAN OF COMPLICATIONS/DECLINE, AND WHEN TO CALL 911.] Future Scheduled Test SKIN INTEG RITY RN TO ASSESS AND TEACH, CLINICAL RN LIAISON/CAREER GUIDANCE TECHNICIAN TO OBSERVE AND TEACH INTEGUMENTARY STATUS TO IDENTIFY CHANGES AND INTERVENE TO MINIMIZE COMPLICATIONS. PROVIDE SKILLED TEACHING OF GENERAL WOUND AND SKIN CARE AND PREVENTION RELATED TO POTENTIAL FOR OR ACTUAL ALTERED SKIN INTEGRITY [code = SKIN INTEGRITY RN TO ASSESS AND TEACH, CLINICAL RN LIAISON/CAREER GUIDANCE TECHNICIAN TO OBSERVE AND TEACH INTEGUMENTARY STATUS TO IDENTIFY CHANGES AND INTERVENE TO MINIMIZE COMPLICATIONS. PROVIDE SKILLED TEACHING OF GENERAL WOUND AND SKIN CARE AND PREVENTION RELATED TO POTENTIAL FOR OR ACTUAL ALTERED SKIN INTEGRITY ] Future Scheduled Test RN TO ASSE SS AND TEACH, CLINICAL RN LIAISON/CAREER GUIDANCE TECHNICIAN TO OBSERVE AND TEACH INTEGUMENTARY STATUS RELATED TO PRESSURE INJURY MANAGEMENT TO IDENTIFY CHANGES AND INTERVENE TO MINIMIZE COMPLICATIONS. PROVIDE SKILLED TEACHING RELATED TO ALTERED SKIN INTEGRITY TO INCLUDE OFFLOADING, FREQUENT POSITION CHANGES, KEEP SKIN CLEAN AND DRY TO PREVENT SKIN BREAKDOWN AND MINIMIZE FRICTION AND SHEARING. REPORT SIGNIFICANT CHANGES IN STATUS TO PHYSICIAN FOR EARLY INTERVENTION. [code = RN TO ASSESS AND TEACH, CLINICAL RN LIAISON/CAREER GUIDANCE TECHNICIAN TO OBSERVE AND TEACH INTEGUMENTARY STATUS RELATED TO PRESSURE INJURY MANAGEMENT TO IDENTIFY CHANGES AND INTERVENE TO MINIMIZE COMPLICATIONS. PROVIDE SKILLED TEACHING RELATED TO ALTERED SKIN INTEGRITY TO INCLUDE OFFLOADING, FREQUENT POSITION CHANGES, KEEP SKIN CLEAN AND DRY TO PREVENT SKIN BREAKDOWN AND MINIMIZE FRICTION AND SHEARING. REPORT SIGNIFICANT CHANGES IN STATUS TO PHYSICIAN FOR EARLY INTERVENTION.] Future Scheduled Test WOUND MOLE CULAR TESTING PROTOCOL UP TO 1 PRN RN/CLINICAL RN LIAISON/CAREER GUIDANCE TECHNICIAN VISITS MAY BE PERFORMED FOR S/S OF WOUND INFECTION/DETERIORATION/STAGNATION. RN TO ASSESS, CLINICAL RN LIAISON/CAREER GUIDANCE TECHNICIAN TO OBSERVE AND INITIATE PROTOCOL. RN/CLINICAL RN LIAISON/CAREER GUIDANCE TECHNICIAN TO INSTRUCT PATIENT AND/OR CAREGIVER ON S/S OF WOUND INFECTION/DETERIORATION/STAGNATION TO REPORT TO NURSE IF NEW OR WORSENING SYMPTOMS. RN/CLINICAL RN LIAISON/CAREER GUIDANCE TECHNICIAN TO OBTAIN WOUND SPECIMEN FOR MOLECULAR WOUND TESTING VIA SWAB COLLECTION PER POLICY. INCLUDE ANTIBIOTIC/ANTIFUNGAL RESISTANCE TESTING NOTIFY PROVIDER OF RESULTS AND OBTAIN FURTHER ORDERS. [code = WOUND MOLECULAR TESTING PROTOCOL UP TO 1 PRN RN/CLINICAL RN LIAISON/CAREER GUIDANCE TECHNICIAN VISITS MAY BE PERFORMED FOR S/S OF WOUND INFECTION/DETERIORATION/STAGNATION. RN TO ASSESS, CLINICAL RN LIAISON/CAREER GUIDANCE TECHNICIAN TO OBSERVE AND INITIATE PROTOCOL. RN/CLINICAL RN LIAISON/CAREER GUIDANCE TECHNICIAN TO INSTRUCT PATIENT AND/OR CAREGIVER ON S/S OF WOUND INFECTION/DETERIORATION/STAGNATION TO REPORT TO NURSE IF NEW OR WORSENING SYMPTOMS. RN/CLINICAL RN LIAISON/CAREER GUIDANCE TECHNICIAN TO OBTAIN WOUND SPECIMEN FOR MOLECULAR WOUND TESTING VIA SWAB COLLECTION PER POLICY. INCLUDE ANTIBIOTIC/ANTIFUNGAL RESISTANCE TESTING NOTIFY PROVIDER OF RESULTS AND OBTAIN FURTHER ORDERS.] Future Scheduled Test RN/CLINICAL RN LIAISON/CAREER GUIDANCE TECHNICIAN TO PERFORM/TEACH PATIENT/CAREGIVER WOUND CARE PRESSURE INJURY TO COCCYX(AREA): IRRIGATE/CLEANSE WITH WOUND CLEANSER OR NORMAL SALINE APPLY SILVER ALGINATE GEL TO WOUND BED FILL WITH MOISTENED GAUZE MAY APPLY SKIN BARRIER TO PERIWOUND PRN TO PREVENT MACERATION AND PROTECT PERIWOUND COVER WITH HIGH ABSORBANCY PAD SECURE WITH TAPE CHANGE DRESSING EVERY DAY AND PRN FOR SOILAGE AND OR DISLODGMENT. [code = RN/CLINICAL RN LIAISON/CAREER GUIDANCE TECHNICIAN TO PERFORM/TEACH PATIENT/CAREGIVER WOUND CARE PRESSURE INJURY TO COCCYX(AREA): IRRIGATE/CLEANSE WITH WOUND CLEANSER OR NORMAL SALINE APPLY SILVER ALGINATE GEL TO WOUND BED FILL WITH MOISTENED GAUZE MAY APPLY SKIN BARRIER TO PERIWOUND PRN TO PREVENT MACERATION AND PROTECT PERIWOUND COVER WITH HIGH ABSORBANCY PAD SECURE WITH TAPE CHANGE DRESSING EVERY DAY AND PRN FOR SOILAGE AND OR DISLODGMENT. ] Future Scheduled Test SN TO PERF ORM/TEACH PATIENT/CAREGIVER SKIN TEAR WOUND CARE TO LEFT LOWER FLANK, CLEANSE WITH WOUND CLEANSER, PAT DRY WITH 4X4 GAUZE, APPLY XEROFORM TO WOUND, COVER WITH FOAM DRESSING. CHANGE TWICE A WEEK AND PRN FOR LOOSE OR SOILED DRESSING. [code = SN TO PERFORM/TEACH PATIENT/CAREGIVER SKIN TEAR WOUND CARE TO LEFT LOWER FLANK, CLEANSE WITH WOUND CLEANSER, PAT DRY WITH 4X4 GAUZE, APPLY XEROFORM TO WOUND, COVER WITH FOAM DRESSING. CHANGE TWICE A WEEK AND PRN FOR LOOSE OR SOILED DRESSING. ] Future Scheduled Test PAIN MANAG EMENT; RN TO ASSESS AND TEACH, CAREER GUIDANCE TECHNICIAN/CLINICAL RN LIAISON TO OBSERVE AND TEACH AND PROVIDE EDUCATION ON PAIN MANAGEMENT TECHNIQUES. [code = PAIN MANAGEMENT; RN TO ASSESS AND TEACH, CAREER GUIDANCE TECHNICIAN/CLINICAL RN LIAISON TO OBSERVE AND TEACH AND PROVIDE EDUCATION ON PAIN MANAGEMENT TECHNIQUES.] Future Scheduled Test GENITOURIN CLIFTON MANAGEMENT; RN TO ASSESS AND TEACH, CLINICAL RN LIAISON/CAREER GUIDANCE TECHNICIAN TO OBSERVE AND TEACH RELATED TO ALTERED GENITOURINARY STATUS TO MINIMIZE COMPLICATIONS AND REDUCE HOSPITALIZATION. [code = GENITOURINARY MANAGEMENT; RN TO ASSESS AND TEACH, CLINICAL RN LIAISON/CAREER GUIDANCE TECHNICIAN TO OBSERVE AND TEACH RELATED TO ALTERED GENITOURINARY STATUS TO MINIMIZE COMPLICATIONS AND REDUCE HOSPITALIZATION.] Future Scheduled Test URINARY MO LECULAR TESTING PROTOCOL UP TO 1 PRN RN/CLINICAL RN LIAISON/CAREER GUIDANCE TECHNICIAN VISITS MAY BE PERFORMED FOR S/S OF UTI. RN TO ASSESS, CLINICAL RN LIAISON/CAREER GUIDANCE TECHNICIAN TO OBSERVE INITIATION OF UTI PROTOCOL. RN/CAREER GUIDANCE TECHNICIAN/CLINICAL RN LIAISON TO INSTRUCT PATIENT AND/OR CAREGIVER ON S/S OF UTI TO REPORT TO RN/CAREER GUIDANCE TECHNICIAN/CLINICAL RN LIAISON IF NEW OR WORSENING SYMPTOMS. DRINK PLENTY OF WATER THROUGHOUT THE DAY TO MAINTAIN HYDRATION (UNLESS CONTRAINDICATED.) URINATE WHEN THE URGE IS FELT, DO NOT WAIT. WASH GENITALS DAILY. WIPE FROM FRONT TO BACK AFTER HAVING A BOWEL MOVEMENT. RN/CAREER GUIDANCE TECHNICIAN/CLINICAL RN LIAISON TO OBTAIN URINE SPECIMEN FOR MOLECULAR URINE TESTING BY OPTION 1 OR OPTION 2 (OPTION 1) RN/CAREER GUIDANCE TECHNICIAN/CLINICAL RN LIAISON TO OBTAIN URINE SPECIMEN FOR U/A WITH REFLEX TO UTI PANEL (MOLECULAR) VIA CLEAN CATCH URINE AND IF UNABLE TO OBTAIN MAY PERFORM AN IN AND OUT CATH. IF PATIENT HAS INDWELLING CATHETER MAY OBTAIN FROM SAMPLING PORT. (OPTION 2) RN/CAREER GUIDANCE TECHNICIAN/CLINICAL RN LIAISON TO OBTAIN URINE SPECIMEN FOR UTI PANEL (MOLECULAR) VIA SWAB COLLECTION METHOD FROM ADULT BRIEF/DIAPER OR PAD IF PATIENT IS INCONTINENT. INCLUDE ANTIBIOTIC/ANTIFUNGAL RESISTANCE TESTING INCLUDE URINALYSIS (ONLY FOR CLEAN CATCH/ IN AND OUT CATH) NOTIFY PROVIDER OF RESULTS AND OBTAIN FURTHER ORDERS. [code = URINARY MOLECULAR TESTING PROTOCOL UP TO 1 PRN RN/CLINICAL RN LIAISON/CAREER GUIDANCE TECHNICIAN VISITS MAY BE PERFORMED FOR S/S OF UTI. RN TO ASSESS, CLINICAL RN LIAISON/CAREER GUIDANCE TECHNICIAN TO OBSERVE INITIATION OF UTI PROTOCOL. RN/CAREER GUIDANCE TECHNICIAN/CLINICAL RN LIAISON TO INSTRUCT PATIENT AND/OR CAREGIVER ON S/S OF UTI TO REPORT TO RN/CAREER GUIDANCE TECHNICIAN/CLINICAL RN LIAISON IF NEW OR WORSENING SYMPTOMS. DRINK PLENTY OF WATER THROUGHOUT THE DAY TO MAINTAIN HYDRATION (UNLESS CONTRAINDICATED.) URINATE WHEN THE URGE IS FELT, DO NOT WAIT. WASH GENITALS DAILY. WIPE FROM FRONT TO BACK AFTER HAVING A BOWEL MOVEMENT. RN/CAREER GUIDANCE TECHNICIAN/CLINICAL RN LIAISON TO OBTAIN URINE SPECIMEN FOR MOLECULAR URINE TESTING BY OPTION 1 OR OPTION 2 (OPTION 1) RN/CAREER GUIDANCE TECHNICIAN/CLINICAL RN LIAISON TO OBTAIN URINE SPECIMEN FOR U/A WITH REFLEX TO UTI PANEL (MOLECULAR) VIA CLEAN CATCH URINE AND IF UNABLE TO OBTAIN MAY PERFORM AN IN AND OUT CATH. IF PATIENT HAS INDWELLING CATHETER MAY OBTAIN FROM SAMPLING PORT. (OPTION 2) RN/CAREER GUIDANCE TECHNICIAN/CLINICAL RN LIAISON TO OBTAIN URINE SPECIMEN FOR UTI PANEL (MOLECULAR) VIA SWAB COLLECTION METHOD FROM ADULT BRIEF/DIAPER OR PAD IF PATIENT IS INCONTINENT. INCLUDE ANTIBIOTIC/ANTIFUNGAL RESISTANCE TESTING INCLUDE URINALYSIS (ONLY FOR CLEAN CATCH/ IN AND OUT CATH) NOTIFY PROVIDER OF RESULTS AND OBTAIN FURTHER ORDERS.] Future Scheduled Test URINARY TR ACT INFECTION MANAGEMENT; RN/CAREER GUIDANCE TECHNICIAN/CLINICAL RN LIAISON TO PROVIDE SKILLED TEACHING AND SELF- CARE MANAGEMENT RELATED TO UTI TO MINIMIZE COMPLICATIONS AND REDUCE THE RISK OF HOSPITALIZATION. [code = URINARY TRACT INFECTION MANAGEMENT; RN/CAREER GUIDANCE TECHNICIAN/CLINICAL RN LIAISON TO PROVIDE SKILLED TEACHING AND SELF- CARE MANAGEMENT RELATED TO UTI TO MINIMIZE COMPLICATIONS AND REDUCE THE RISK OF HOSPITALIZATION.] Future Scheduled Test INDWELLING URINARY CATHETER MANAGEMENT; RN/CLINICAL RN LIAISON/CAREER GUIDANCE TECHNICIAN TO INSTRUCT PATIENT / CAREGIVER ON INDWELLING URINARY CATHETER MANAGEMENT INCLUDING CARE OF CATHETER, SIGN AND SYMPTOMS OF COMPLICATIONS, PERINEAL CARE, TUBE AND BAG PLACEMENT, PREVENTION OF INFECTION AND SKIN BREAKDOWN. [code = INDWELLING URINARY CATHETER MANAGEMENT; RN/CLINICAL RN LIAISON/CAREER GUIDANCE TECHNICIAN TO INSTRUCT PATIENT / CAREGIVER ON INDWELLING URINARY CATHETER MANAGEMENT INCLUDING CARE OF CATHETER, SIGN AND SYMPTOMS OF COMPLICATIONS, PERINEAL CARE, TUBE AND BAG PLACEMENT, PREVENTION OF INFECTION AND SKIN BREAKDOWN.] Future Scheduled Test INDWELLING URINARY CATHETER INSERTION; RN/CLINICAL RN LIAISON/CAREER GUIDANCE TECHNICIAN TO PERFORM INSERTION OF 16 FR INDWELLING CATHETER, INSTILL 10 CC OF STERILE WATER INTO BALLOON, SECURE TUBING WITH APPROPRIATE SECUREMENT DEVICE CHANGE EVERY MONTH AND PRN FOR LEAKAGE, BLOCKAGE, DISLODGEMENT, OR MALFUNCTION. [code = INDWELLING URINARY CATHETER INSERTION; RN/CLINICAL RN LIAISON/CAREER GUIDANCE TECHNICIAN TO PERFORM INSERTION OF 16 FR INDWELLING CATHETER, INSTILL 10 CC OF STERILE WATER INTO BALLOON, SECURE TUBING WITH APPROPRIATE SECUREMENT DEVICE CHANGE EVERY MONTH AND PRN FOR LEAKAGE, BLOCKAGE, DISLODGEMENT, OR MALFUNCTION.] Future Scheduled Test MALNUTRITI ON MANAGEMENT; RN TO ASSESS AND TEACH, CAREER GUIDANCE TECHNICIAN/CLINICAL RN LIAISON TO OBSERVE AND TEACH AND INSTRUCT PATIENT / CAREGIVER ON INTERVENTIONS TO IMPROVE NUTRITIONAL INTAKE AND PATIENT WELLBEING. [code = MALNUTRITION MANAGEMENT; RN TO ASSESS AND TEACH, CAREER GUIDANCE TECHNICIAN/CLINICAL RN LIAISON TO OBSERVE AND TEACH AND INSTRUCT PATIENT / CAREGIVER ON INTERVENTIONS TO IMPROVE NUTRITIONAL INTAKE AND PATIENT WELLBEING.] Future Scheduled Test FALL REDUC TION MANAGEMENT; RN TO ASSESS AND OBSERVE, CLINICAL RN LIAISON/CAREER GUIDANCE TECHNICIAN TO OBSERVE FALL RISK FACTORS AND EDUCATE PATIENT/CAREGIVER ON STRATEGIES TO MINIMIZE THE RISK OF FALLING. [code = FALL REDUCTION MANAGEMENT; RN TO ASSESS AND OBSERVE, CLINICAL RN LIAISON/CAREER GUIDANCE TECHNICIAN TO OBSERVE FALL RISK FACTORS AND EDUCATE PATIENT/CAREGIVER ON STRATEGIES TO MINIMIZE THE RISK OF FALLING.] Future Scheduled Test GASTROINTE STINAL MANAGEMENT; RN TO ASSESS AND TEACH, CAREER GUIDANCE TECHNICIAN/CLINICAL RN LIAISON TO OBSERVE AND TEACH RELATED TO ALTERED GASTROINTESTINAL STATUS TO MINIMIZE COMPLICATIONS AND REDUCE HOSPITALIZATION. [code = GASTROINTESTINAL MANAGEMENT; RN TO ASSESS AND TEACH, CAREER GUIDANCE TECHNICIAN/CLINICAL RN LIAISON TO OBSERVE AND TEACH RELATED TO ALTERED GASTROINTESTINAL STATUS TO MINIMIZE COMPLICATIONS AND REDUCE HOSPITALIZATION.] Future Scheduled Test ENTERAL FE EDING/CARE AND TEACHING; RN/CAREER GUIDANCE TECHNICIAN/CLINICAL RN LIAISON TO PERFORM AND INSTRUCT IN MANAGEMENT OF GASTROSTOMY INCLUDING: CARE OF SITE, EQUIPMENT, AND PREPARATION/ADMINISTRATION OF FEEDINGS. JEVITY 1.5 (250ML) VIA BOLUS 1 CAN EVERY 6 HOURS. FLUSH GATROSTOMY TUBE WITH 180 ML WATER EVERY 6 HOURS. FLUSH TUBE BEFORE AND AFTER MEDICATIONS.CHECK FOR RESIDULAL PRIOR TO EACH FEEDING. [code = ENTERAL FEEDING/CARE AND TEACHING; RN/CAREER GUIDANCE TECHNICIAN/CLINICAL RN LIAISON TO PERFORM AND INSTRUCT IN MANAGEMENT OF GASTROSTOMY INCLUDING: CARE OF SITE, EQUIPMENT, AND PREPARATION/ADMINISTRATION OF FEEDINGS. JEVITY 1.5 (250ML) VIA BOLUS 1 CAN EVERY 6 HOURS. FLUSH GATROSTOMY TUBE WITH 180 ML WATER EVERY 6 HOURS. FLUSH TUBE BEFORE AND AFTER MEDICATIONS.CHECK FOR RESIDULAL PRIOR TO EACH FEEDING. ] Future Scheduled Test PRN VISITS ; NUMBER OF RN/CLINICAL RN LIAISON/CAREER GUIDANCE TECHNICIAN VISITS: 2 RN/CLINICAL RN LIAISON/CAREER GUIDANCE TECHNICIAN TO PERFORM: WOUND/ ASSESSMENT FOR THE FOLLOWING REASONS: COMPLICATIONS [code = PRN VISITS; NUMBER OF RN/CLINICAL RN LIAISON/CAREER GUIDANCE TECHNICIAN VISITS: 2 RN/CLINICAL RN LIAISON/CAREER GUIDANCE TECHNICIAN TO PERFORM: WOUND/ ASSESSMENT FOR THE FOLLOWING REASONS: COMPLICATIONS] Goal 2024-10-31 Patient Goal - UNABLET TO ST [facility] GOALS. Goal 2024-11-29 Patient Goal - UNABLE TO STA TE GOALS. Goal Patient Goal - UNABLE TO STA TE GOALS. Goal Provider Goal - A PLAN [...] END OF EPISODE Goal Provider Goal - CHANGES IN SKIN INTEGRITY STATUS RELATED TO PRESSURE INJURY MANAGEMENT WILL BE IDENTIFIED AND REPORTED TO THE PHYSICIAN FOR PROMPT INTERVENTION. PATIENT / CAREGIVER WILL VERBALIZE/DEMONSTRATE ADEQUATE KNOWLEDGE OF INTEGUMENTARY STATUS AND APPROPRIATE MEASURES TO PROMOTE SKIN INTEGRITY AND PREVENT INJURY BY END OF EPISODE Goal Provider Goal - PATIENT WILL DEMONSTRATE IMPROVEMENT IN S/S OF WOUND INFECTION/DETERIORATION/STAGNATION TO AVOID HOSPITALIZATION. Goal Provider Goal - PATIENT / CAREGIVER WILL VERBALIZE / DEMONSTRATE ABILITY TO PERFORM WOUND CARE. WOUND STATUS WILL IMPROVE EVIDENCED BY A DECREASE IN SIZE, DRAINAGE, ABSENCE OF INFECTION, AND DECREASED PAIN BY END OF EPISODE. Goal Provider Goal - PATIENT / CAREGIVER WILL VERBALIZE/DEMONSTRATE ABILITY TO PERFORM WOUND CARE. WOUND STATUS WILL IMPROVE EVIDENCED BY A DECREASE IN SIZE, DRAINAGE, ABSENCE OF INFECTION, AND DECREASED PAIN BY END OF EPISODE Goal Provider Goal - PATIENT / CAREGIVER WILL VERBALIZE / DEMONSTRATE UNDERSTANDING OF PAIN CONTROL MEASURES BY END OF EPISODE Goal Provider Goal - PATIENT / CAREGIVER WILL VERBALIZE/DEMONSTRATE UNDERSTANDING OF MEASURES TO MANAGE ALTERED GENITOURINARY STATUS BY END OF EPISODE. Goal Provider Goal - PATIENT WILL DEMONSTRATE IMPROVEMENT IN S/S OF UTI TO AVOID HOSPITALIZATION. Goal Provider Goal - PATIENT/CAREGIVER WILL VERBALIZE/DEMONSTRATE UNDERSTANDING OF CARE AND MANAGEMENT OF URINARY TRACT INFECTION BY END OF EPISODE Goal Provider Goal - PATIENT/CAREGIVER WILL VERBALIZE/DEMONSTRATE UNDERSTANDING OF CARE AND MANAGEMENT OF INDWELLING CATHETER BY END OF EPISODE Goal Provider Goal - PATIENT WILL VERBALIZE/TOLERATE CATHETER CHANGE BY END OF EPISODE Goal Provider Goal - PATIENT / CAREGIVER WILL VERBALIZE/DEMONSTRATE APPROPRIATE METHODS TO IMPROVE NUTRITIONAL STATUS BY END OF EPISODE. Goal Provider Goal - PATIENT/CAREGIVER WILL VERBALIZE/DEMONSTRATE UNDERSTANDING OF FALL RISK FACTORS AND IMPLEMENT STRATEGIES TO MINIMIZE FALL RISK. PATIENT/CAREGIVER WILL VERBALIZE/DEMONSTRATE AN ABILITY TO ADHERE TO FALL REDUCTION SELF-MANAGEMENT AND LIFE-STYLE CHANGES BY END OF EPISODE Goal Provider Goal - PATIENT / CAREGIVER WILL VERBALIZE/DEMONSTRATE UNDERSTANDING OF MEASURES TO MANAGE ALTERED GASTROINTESTINAL STATUS BY END OF EPISODE. Goal Provider Goal - PATIENT/CAREGIVER WILL VERBALIZE/DEMONSTRATE UNDERSTANDING OF CARE AND MANAGEMENT OF ENTERAL TUBE FEEDING BY END OF EPISODE. Goal Provider Goal - Encounters Start Date/Time End Date/Time Encounter Type Admission Type Attending [facility] Care Department Encounter ID Discharge Date Discharge Status Discharge Condition Discharge Reason Percent Goals Met 2024-12-03 00:00:00 2025-01-31 00:00:00 Outpatient RECERTIFIC ATION ANTONIETA TOMLINSON [facility] [id number] 63.64
--- OUTSIDE RECORDS SUMMARY | 2024-12-19 18:07 | XMS_ITS | Clinical Summary ---
Author Organization Unknown Care Team Providers Care Tool Repairer Name Role Phone MELIDA SWAN Unavailable U navailable GLENN PHP WEBSITE DEVELOPER, SCOTT Unavailable Unavailabl e TASHA OT, GABE Unavailable Unavailable MARIE PT, MARGARET Unavailable Unavailable DAVI RN, ANTONIETA Unavailable Unavailabl e LUPCHO CAD DESIGNER DRAFTER/MALAVE, JEANNE Unavailable Unavaila ble WENDY KUMARN, BRADLEY Unavailable Unavailable Payers Payer Name Policy Type Policy Number Effective Date Expira tion Date MEDICARE.[facility] [id number] Problems Condition Name Condition Details Condition Category [...] OF PNEUMONIA (RECURRENT) Active 11-12 00:00: 00 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 OF ANTICOAGULAN TS Active 11-28 [...] 2023-05 00:00: 00 11-29 23:59 :00 No [id number] URINARY HEALTH 1 capsule DAILY 1 capsule DAILY (route: oral) Med Classific ation: Alternati ve Therapy dimethyl fumarate 240 mg capsule,del ayed release 2023-05 016 00:00: 00 Yes [id number] MULTIPLE SCLOROSIS 1 capsule 2 TIMES DAILY 1 capsule 2 TIMES DAILY (route: oral) Med Classific ation: Multiple Sclerosis Agents lisinopril 5 mg tablet 07 00:00: 00 10-17 23:59 :00 No [id number] BLOOD PRESSURE 1 tablet DAILY 1 tablet DAILY (route: oral) Med Classific ation: Cardiovas cular Therapy Agents valacyclovi r 500 mg tablet 2023-05 0-09 00:00: 00 11-29 00:00 :00 No [id number] PREVENT VIRAL INFECTION 2 tablet EVERY 12 HOURS 2 tablet EVERY 12 HOURS (route: oral) Med Classific ation: Anti-Infe ctive Agents Advil 200 mg tablet 6 00:00: 00 11-29 00:00 :00 No [id number] PAIN 200 mg DIRECTED 200 mg DIRECTED (route: oral) Med Classific ation: Analgesic , Anti-infl ammatory or Antipyret ic Miralax 17 gram/dose oral powder 10-14 00:00: 00 Yes [id number] CONSTIPATIO N 17 gram DAILY 17 gram DAILY (route: oral) Med Classific ation: Gastroint estinal Therapy Agents dimethyl fumarate 240 mg capsule,del ayed release 12-03 00:00: 00 Yes [id number] MS 1 capsule 2 TIMES DAILY 1 capsule 2 TIMES DAILY (route: oral) Alternate Route: PEG TUBE. Med Classific ation: Multiple Sclerosis Agents Eliquis 5 mg tablet 12-03 00:00: 00 Yes [id number] BLOOD THINNER 1 tablet EVERY 12 HOURS 1 tablet EVERY 12 HOURS (route: oral) Med Classific ation: Hematolog ical Agents Miralax 17 gram/dose oral powder 12-03 00:00: 00 Yes [id number] CONSTIPATIO N 17 gram DAILY 17 gram DAILY (route: oral) Alternate Route: PEG TUBE. Med Classific ation: Gastroint estinal Therapy Agents Valtrex 500 mg tablet 12-03 00:00: 00 Yes [id number] PREVENT VIRAL INFECTION 1 tablet EVERY 12 [...] CONSULTING PHYSICIANS. RN TO OBSERVE AND ASSESS, DROP BOARD MAN/PARK INTERPRETER TO OBSERVE FOR RISK FOR FALLS AND INSTRUCT IN FALL PREVENTION, HOME SAFETY, MEDICATION MANAGEMENT, INFECTION PREVENTION, AND NUTRITION MANAGEMENT. RN/DROP BOARD MAN/PARK INTERPRETER NURSE MAY PERFORM O2 SATURATION LEVEL. RN TO ASSESS/DROP BOARD MAN TO OBSERVE PATIENT, WITH NOTIFICATION TO THE PHYSICIAN IF SATURATION IS 90% IN THE ABSENCE OF MORE SPECIFIC PARAMETERS FROM THE PHYSICIAN. AGENCY MAY PERFORM A RESUMPTION OF CARE VISIT FOLLOWING ANY HOSPITAL ADMISSION. RN/DROP BOARD MAN/PARK INTERPRETER TO MONITOR CO-MORBID CONDITIONS LISTED ON THE PLAN OF CARE AND ANY NEW CONDITIONS THAT PRESENT THEMSELVES DURING THIS EPISODE TO IDENTIFY CHANGES AND INTERVENE TO MINIMIZE COMPLICATIONS. [code = RN TO OBSERVE, ASSESS, EVALUATE, AND DEVELOP AN INDIVIDUALIZED PLAN OF CARE. AGENCY MAY ACCEPT ORDERS FROM CONSULTING PHYSICIANS. RN TO OBSERVE AND ASSESS, DROP BOARD MAN/PARK INTERPRETER TO OBSERVE FOR RISK FOR FALLS AND INSTRUCT IN FALL PREVENTION, HOME SAFETY, MEDICATION MANAGEMENT, INFECTION PREVENTION, AND NUTRITION MANAGEMENT. RN/DROP BOARD MAN/PARK INTERPRETER NURSE MAY PERFORM O2 SATURATION LEVEL. RN TO ASSESS/DROP BOARD MAN TO OBSERVE PATIENT, WITH NOTIFICATION TO THE PHYSICIAN IF SATURATION IS 90% IN THE ABSENCE OF MORE SPECIFIC PARAMETERS FROM THE PHYSICIAN. AGENCY MAY PERFORM A RESUMPTION OF CARE VISIT FOLLOWING ANY HOSPITAL ADMISSION. RN/DROP BOARD MAN/PARK INTERPRETER TO MONITOR CO-MORBID CONDITIONS LISTED ON THE PLAN OF CARE AND ANY NEW CONDITIONS THAT PRESENT THEMSELVES DURING THIS EPISODE TO IDENTIFY CHANGES AND INTERVENE TO MINIMIZE COMPLICATIONS.] Future Scheduled Test MEDICATION MANAGEMENT; RN/DROP BOARD MAN/PARK INTERPRETER TO REVIEW MEDICATIONS FOR INTERACTIONS, EFFECTIVENESS OF DRUG THERAPY, AND SIGNS/SYMPTOMS OF ADVERSE REACTIONS. MAY INSTRUCT AND REINFORCE MEDICATION TEACHING RELATED TO THE USE OF MEDICATIONS, DOSAGE, FREQUENCY, PURPOSE, SIDE EFFECTS, AND TO REPORT COMPLICATIONS. [code = MEDICATION MANAGEMENT; RN/DROP BOARD MAN/PARK INTERPRETER TO REVIEW MEDICATIONS FOR INTERACTIONS, EFFECTIVENESS OF DRUG THERAPY, AND SIGNS/SYMPTOMS OF ADVERSE REACTIONS. MAY INSTRUCT AND REINFORCE MEDICATION TEACHING RELATED TO THE USE OF MEDICATIONS, DOSAGE, FREQUENCY, PURPOSE, SIDE EFFECTS, AND TO REPORT COMPLICATIONS.] Future Scheduled Test RISK FOR H OSPITALIZATION; RN TO ASSESS/TEACH, PARK INTERPRETER/DROP BOARD MAN TO OBSERVE/TEACH PATIENT/CAREGIVER ON RISK FOR HOSPITALIZATION/EMERGENCY ROOM VISITS, TEACH SIGNS AND SYMPTOMS THAT PUT PATIENT AT RISK, WHEN TO NOTIFY NURSE/PHYSICIAN OF COMPLICATIONS/DECLINE, AND WHEN TO CALL 911. [code = RISK FOR HOSPITALIZATION; RN TO ASSESS/TEACH, PARK INTERPRETER/DROP BOARD MAN TO OBSERVE/TEACH PATIENT/CAREGIVER ON RISK FOR HOSPITALIZATION/EMERGENCY ROOM VISITS, TEACH SIGNS AND SYMPTOMS THAT PUT PATIENT AT RISK, WHEN TO NOTIFY NURSE/PHYSICIAN OF COMPLICATIONS/DECLINE, AND WHEN TO CALL 911.] Future Scheduled Test SKIN INTEG RITY RN TO ASSESS AND TEACH, DROP BOARD MAN/PARK INTERPRETER TO OBSERVE AND TEACH INTEGUMENTARY STATUS TO IDENTIFY CHANGES AND INTERVENE TO MINIMIZE COMPLICATIONS. PROVIDE SKILLED TEACHING OF GENERAL WOUND AND SKIN CARE AND PREVENTION RELATED TO POTENTIAL FOR OR ACTUAL ALTERED SKIN INTEGRITY [code = SKIN INTEGRITY RN TO ASSESS AND TEACH, DROP BOARD MAN/PARK INTERPRETER TO OBSERVE AND TEACH INTEGUMENTARY STATUS TO IDENTIFY CHANGES AND INTERVENE TO MINIMIZE COMPLICATIONS. PROVIDE SKILLED TEACHING OF GENERAL WOUND AND SKIN CARE AND PREVENTION RELATED TO POTENTIAL FOR OR ACTUAL ALTERED SKIN INTEGRITY ] Future Scheduled Test RN TO ASSE SS AND TEACH, DROP BOARD MAN/PARK INTERPRETER TO OBSERVE AND TEACH INTEGUMENTARY STATUS RELATED [...] [code = RN TO ASSESS AND TEACH, DROP BOARD MAN/PARK INTERPRETER TO OBSERVE AND TEACH INTEGUMENTARY STATUS RELATED [...] CULAR TESTING PROTOCOL UP TO 1 PRN RN/DROP BOARD MAN/PARK INTERPRETER VISITS MAY BE PERFORMED FOR S/S OF WOUND INFECTION/DETERIORATION/STAGNATION. RN TO ASSESS, DROP BOARD MAN/PARK INTERPRETER TO OBSERVE AND INITIATE PROTOCOL. RN/DROP BOARD MAN/PARK INTERPRETER TO INSTRUCT PATIENT AND/OR CAREGIVER ON S/S OF WOUND INFECTION/DETERIORATION/STAGNATION TO REPORT TO NURSE IF NEW OR WORSENING SYMPTOMS. RN/DROP BOARD MAN/PARK INTERPRETER TO OBTAIN WOUND SPECIMEN FOR MOLECULAR WOUND TESTING VIA SWAB COLLECTION PER POLICY. INCLUDE ANTIBIOTIC/ANTIFUNGAL RESISTANCE TESTING NOTIFY PROVIDER OF RESULTS AND OBTAIN FURTHER ORDERS. [code = WOUND MOLECULAR TESTING PROTOCOL UP TO 1 PRN RN/DROP BOARD MAN/PARK INTERPRETER VISITS MAY BE PERFORMED FOR S/S OF WOUND INFECTION/DETERIORATION/STAGNATION. RN TO ASSESS, DROP BOARD MAN/PARK INTERPRETER TO OBSERVE AND INITIATE PROTOCOL. RN/DROP BOARD MAN/PARK INTERPRETER TO INSTRUCT PATIENT AND/OR CAREGIVER ON S/S OF WOUND INFECTION/DETERIORATION/STAGNATION TO REPORT TO NURSE IF NEW OR WORSENING SYMPTOMS. RN/DROP BOARD MAN/PARK INTERPRETER TO OBTAIN WOUND SPECIMEN FOR MOLECULAR WOUND TESTING VIA SWAB COLLECTION PER POLICY. INCLUDE ANTIBIOTIC/ANTIFUNGAL RESISTANCE TESTING NOTIFY PROVIDER OF RESULTS AND OBTAIN FURTHER ORDERS.] Future Scheduled Test RN/DROP BOARD MAN/PARK INTERPRETER TO PERFORM/TEACH PATIENT/CAREGIVER WOUND CARE PRESSURE INJURY TO COCCYX(AREA): IRRIGATE/CLEANSE WITH WOUND CLEANSER OR NORMAL SALINE APPLY SILVER ALGINATE GEL TO WOUND BED FILL WITH MOISTENED GAUZE MAY APPLY SKIN BARRIER TO PERIWOUND PRN TO PREVENT MACERATION AND PROTECT PERIWOUND COVER WITH HIGH ABSORBANCY PAD SECURE WITH TAPE CHANGE DRESSING EVERY DAY AND PRN FOR SOILAGE AND OR DISLODGMENT. [code = RN/DROP BOARD MAN/PARK INTERPRETER TO PERFORM/TEACH PATIENT/CAREGIVER WOUND CARE PRESSURE INJURY [...] MANAG EMENT; RN TO ASSESS AND TEACH, PARK INTERPRETER/DROP BOARD MAN TO OBSERVE AND TEACH AND PROVIDE EDUCATION ON PAIN MANAGEMENT TECHNIQUES. [code = PAIN MANAGEMENT; RN TO ASSESS AND TEACH, PARK INTERPRETER/DROP BOARD MAN TO OBSERVE AND TEACH AND PROVIDE EDUCATION ON PAIN MANAGEMENT TECHNIQUES.] Future Scheduled Test GENITOURIN CLIFTON MANAGEMENT; RN TO ASSESS AND TEACH, DROP BOARD MAN/PARK INTERPRETER TO OBSERVE AND TEACH RELATED TO ALTERED GENITOURINARY STATUS TO MINIMIZE COMPLICATIONS AND REDUCE HOSPITALIZATION. [code = GENITOURINARY MANAGEMENT; RN TO ASSESS AND TEACH, DROP BOARD MAN/PARK INTERPRETER TO OBSERVE AND TEACH RELATED TO ALTERED GENITOURINARY STATUS TO MINIMIZE COMPLICATIONS AND REDUCE HOSPITALIZATION.] Future Scheduled Test URINARY MO LECULAR TESTING PROTOCOL UP TO 1 PRN RN/DROP BOARD MAN/PARK INTERPRETER VISITS MAY BE PERFORMED FOR S/S OF UTI. RN TO ASSESS, DROP BOARD MAN/PARK INTERPRETER TO OBSERVE INITIATION OF UTI PROTOCOL. RN/PARK INTERPRETER/DROP BOARD MAN TO INSTRUCT PATIENT AND/OR CAREGIVER ON S/S OF UTI TO REPORT TO RN/PARK INTERPRETER/DROP BOARD MAN IF NEW OR WORSENING SYMPTOMS. DRINK PLENTY OF WATER THROUGHOUT THE DAY TO MAINTAIN HYDRATION (UNLESS CONTRAINDICATED.) URINATE WHEN THE URGE IS FELT, DO NOT WAIT. WASH GENITALS DAILY. WIPE FROM FRONT TO BACK AFTER HAVING A BOWEL MOVEMENT. RN/PARK INTERPRETER/DROP BOARD MAN TO OBTAIN URINE SPECIMEN FOR MOLECULAR URINE TESTING BY OPTION 1 OR OPTION 2 (OPTION 1) RN/PARK INTERPRETER/DROP BOARD MAN TO OBTAIN URINE SPECIMEN FOR U/A WITH REFLEX TO UTI PANEL (MOLECULAR) VIA CLEAN CATCH URINE AND IF UNABLE TO OBTAIN MAY PERFORM AN IN AND OUT CATH. IF PATIENT HAS INDWELLING CATHETER MAY OBTAIN FROM SAMPLING PORT. (OPTION 2) RN/PARK INTERPRETER/DROP BOARD MAN TO OBTAIN URINE SPECIMEN FOR UTI PANEL (MOLECULAR) VIA SWAB COLLECTION METHOD FROM ADULT BRIEF/DIAPER OR PAD IF PATIENT IS INCONTINENT. INCLUDE ANTIBIOTIC/ANTIFUNGAL RESISTANCE TESTING INCLUDE URINALYSIS (ONLY FOR CLEAN CATCH/ IN AND OUT CATH) NOTIFY PROVIDER OF RESULTS AND OBTAIN FURTHER ORDERS. [code = URINARY MOLECULAR TESTING PROTOCOL UP TO 1 PRN RN/DROP BOARD MAN/PARK INTERPRETER VISITS MAY BE PERFORMED FOR S/S OF UTI. RN TO ASSESS, DROP BOARD MAN/PARK INTERPRETER TO OBSERVE INITIATION OF UTI PROTOCOL. RN/PARK INTERPRETER/DROP BOARD MAN TO INSTRUCT PATIENT AND/OR CAREGIVER ON S/S OF UTI TO REPORT TO RN/PARK INTERPRETER/DROP BOARD MAN IF NEW OR WORSENING SYMPTOMS. DRINK PLENTY OF WATER THROUGHOUT THE DAY TO MAINTAIN HYDRATION (UNLESS CONTRAINDICATED.) URINATE WHEN THE URGE IS FELT, DO NOT WAIT. WASH GENITALS DAILY. WIPE FROM FRONT TO BACK AFTER HAVING A BOWEL MOVEMENT. RN/PARK INTERPRETER/DROP BOARD MAN TO OBTAIN URINE SPECIMEN FOR MOLECULAR URINE TESTING BY OPTION 1 OR OPTION 2 (OPTION 1) RN/PARK INTERPRETER/DROP BOARD MAN TO OBTAIN URINE SPECIMEN FOR U/A WITH REFLEX TO UTI PANEL (MOLECULAR) VIA CLEAN CATCH URINE AND IF UNABLE TO OBTAIN MAY PERFORM AN IN AND OUT CATH. IF PATIENT HAS INDWELLING CATHETER MAY OBTAIN FROM SAMPLING PORT. (OPTION 2) RN/PARK INTERPRETER/DROP BOARD MAN TO OBTAIN URINE SPECIMEN FOR UTI PANEL (MOLECULAR) VIA SWAB COLLECTION METHOD FROM ADULT BRIEF/DIAPER OR PAD IF PATIENT IS INCONTINENT. INCLUDE ANTIBIOTIC/ANTIFUNGAL RESISTANCE TESTING INCLUDE URINALYSIS (ONLY FOR CLEAN CATCH/ IN AND OUT CATH) NOTIFY PROVIDER OF RESULTS AND OBTAIN FURTHER ORDERS.] Future Scheduled Test URINARY TR ACT INFECTION MANAGEMENT; RN/PARK INTERPRETER/DROP BOARD MAN TO PROVIDE SKILLED TEACHING AND SELF- CARE MANAGEMENT RELATED TO UTI TO MINIMIZE COMPLICATIONS AND REDUCE THE RISK OF HOSPITALIZATION. [code = URINARY TRACT INFECTION MANAGEMENT; RN/PARK INTERPRETER/DROP BOARD MAN TO PROVIDE SKILLED TEACHING AND SELF- CARE MANAGEMENT RELATED TO UTI TO MINIMIZE COMPLICATIONS AND REDUCE THE RISK OF HOSPITALIZATION.] Future Scheduled Test INDWELLING URINARY CATHETER MANAGEMENT; RN/DROP BOARD MAN/PARK INTERPRETER TO INSTRUCT PATIENT / CAREGIVER ON INDWELLING URINARY CATHETER MANAGEMENT INCLUDING CARE OF CATHETER, SIGN AND SYMPTOMS OF COMPLICATIONS, PERINEAL CARE, TUBE AND BAG PLACEMENT, PREVENTION OF INFECTION AND SKIN BREAKDOWN. [code = INDWELLING URINARY CATHETER MANAGEMENT; RN/DROP BOARD MAN/PARK INTERPRETER TO INSTRUCT PATIENT / CAREGIVER ON INDWELLING URINARY CATHETER MANAGEMENT INCLUDING CARE OF CATHETER, SIGN AND SYMPTOMS OF COMPLICATIONS, PERINEAL CARE, TUBE AND BAG PLACEMENT, PREVENTION OF INFECTION AND SKIN BREAKDOWN.] Future Scheduled Test INDWELLING URINARY CATHETER INSERTION; RN/DROP BOARD MAN/PARK INTERPRETER TO PERFORM INSERTION OF 16 FR INDWELLING CATHETER, INSTILL 10 CC OF STERILE WATER INTO BALLOON, SECURE TUBING WITH APPROPRIATE SECUREMENT DEVICE CHANGE EVERY MONTH AND PRN FOR LEAKAGE, BLOCKAGE, DISLODGEMENT, OR MALFUNCTION. [code = INDWELLING URINARY CATHETER INSERTION; RN/DROP BOARD MAN/PARK INTERPRETER TO PERFORM INSERTION OF 16 FR INDWELLING CATHETER, INSTILL 10 CC OF STERILE WATER INTO BALLOON, SECURE TUBING WITH APPROPRIATE SECUREMENT DEVICE CHANGE EVERY MONTH AND PRN FOR LEAKAGE, BLOCKAGE, DISLODGEMENT, OR MALFUNCTION.] Future Scheduled Test MALNUTRITI ON MANAGEMENT; RN TO ASSESS AND TEACH, PARK INTERPRETER/DROP BOARD MAN TO OBSERVE AND TEACH AND INSTRUCT PATIENT / CAREGIVER ON INTERVENTIONS TO IMPROVE NUTRITIONAL INTAKE AND PATIENT WELLBEING. [code = MALNUTRITION MANAGEMENT; RN TO ASSESS AND TEACH, PARK INTERPRETER/DROP BOARD MAN TO OBSERVE AND TEACH AND INSTRUCT PATIENT / CAREGIVER ON INTERVENTIONS TO IMPROVE NUTRITIONAL INTAKE AND PATIENT WELLBEING.] Future Scheduled Test FALL REDUC TION MANAGEMENT; RN TO ASSESS AND OBSERVE, DROP BOARD MAN/PARK INTERPRETER TO OBSERVE FALL RISK FACTORS AND EDUCATE PATIENT/CAREGIVER ON STRATEGIES TO MINIMIZE THE RISK OF FALLING. [code = FALL REDUCTION MANAGEMENT; RN TO ASSESS AND OBSERVE, DROP BOARD MAN/PARK INTERPRETER TO OBSERVE FALL RISK FACTORS AND EDUCATE PATIENT/CAREGIVER ON STRATEGIES TO MINIMIZE THE RISK OF FALLING.] Future Scheduled Test GASTROINTE STINAL MANAGEMENT; RN TO ASSESS AND TEACH, PARK INTERPRETER/DROP BOARD MAN TO OBSERVE AND TEACH RELATED TO ALTERED GASTROINTESTINAL STATUS TO MINIMIZE COMPLICATIONS AND REDUCE HOSPITALIZATION. [code = GASTROINTESTINAL MANAGEMENT; RN TO ASSESS AND TEACH, PARK INTERPRETER/DROP BOARD MAN TO OBSERVE AND TEACH RELATED TO ALTERED GASTROINTESTINAL STATUS TO MINIMIZE COMPLICATIONS AND REDUCE HOSPITALIZATION.] Future Scheduled Test ENTERAL FE EDING/CARE AND TEACHING; RN/PARK INTERPRETER/DROP BOARD MAN TO PERFORM AND INSTRUCT IN MANAGEMENT OF GASTROSTOMY INCLUDING: CARE OF SITE, EQUIPMENT, AND PREPARATION/ADMINISTRATION OF FEEDINGS. JEVITY 1.5 (250ML) VIA BOLUS 1 CAN EVERY 6 HOURS. FLUSH GATROSTOMY TUBE WITH 180 ML WATER EVERY 6 HOURS. FLUSH TUBE BEFORE AND AFTER MEDICATIONS.CHECK FOR RESIDULAL PRIOR TO EACH FEEDING. [code = ENTERAL FEEDING/CARE AND TEACHING; RN/PARK INTERPRETER/DROP BOARD MAN TO PERFORM AND INSTRUCT IN MANAGEMENT OF GASTROSTOMY INCLUDING: CARE OF SITE, EQUIPMENT, AND PREPARATION/ADMINISTRATION OF FEEDINGS. JEVITY 1.5 (250ML) VIA BOLUS 1 CAN EVERY 6 HOURS. FLUSH GATROSTOMY TUBE WITH 180 ML WATER EVERY 6 HOURS. FLUSH TUBE BEFORE AND AFTER MEDICATIONS.CHECK FOR RESIDULAL PRIOR TO EACH FEEDING. ] Future Scheduled Test PRN VISITS ; NUMBER OF RN/DROP BOARD MAN/PARK INTERPRETER VISITS: 2 RN/DROP BOARD MAN/PARK INTERPRETER TO PERFORM: WOUND/ ASSESSMENT FOR THE FOLLOWING REASONS: COMPLICATIONS [code = PRN VISITS; NUMBER OF RN/DROP BOARD MAN/PARK INTERPRETER VISITS: 2 RN/DROP BOARD MAN/PARK INTERPRETER TO PERFORM: WOUND/ ASSESSMENT FOR THE FOLLOWING [...] End Date/Time Encounter Type Admission Type Attending [facility] Care Department Encounter ID Discharge Date Discharge Status Discharge Condition Discharge Reason Percent Goals Met 2024-12-03 00:00:00 2025-01-31 00:00:00 Outpatient RECERTIFIC ATION ANTONIETA TOMLINSON [facility] [id number] 63.64
--- NOTE | 2024-12-19 18:09 | PC.NURSE ---
Pt presented to ED via EMS with chronic villareal catheter. Significant amount of sediment present in villareal tubing, foul smelling urine. Pt also had excessive buildup up of yellowish, foul smelling material on inner labia. Pericare completed. Home villareal removed, new catheter placed. Pt has large decubitus ulcer, approx 8cm x 10cm, approx 1cm deep with underlying tissue exposed. Pt did arrive with clean dressing to this site.
--- NOTE | 2024-12-19 18:20 | ED_ITS ---
HPI - Altered Mental Status General Chief Complaint: Altered Mental Status Stated Complaint: AMS Time Seen by Provider: 12/19/24 17:36 History of Present Illness HPI narrative: This is a 64-year-old female with history of paroxysmal AFib, hypertension, MS presents the ED for altered mental status. Per EMS, they were called by patient's own for concerns of the patient having altered mental status possibly due to UTI. History is otherwise limited at this time due to patient's altered mental status Related Data Home Medications ?Medication ?Instructions ?Recorded ?Confirmed ?Last Taken ?Type polyethylene glycol 3350 17 4 g PO DAILY 10/23/24 11/12/24 Unknown History gram/dose oral powder (ClearLax) Allergies Allergy/AdvReac Type Severity Reaction Status Date / Time Seasonal Allergies Allergy Mild itchiness Uncoded 11/13/24 02:12 Review of Systems 2 Review of Systems: ROS unobtainable: Yes unobtainable due to mental status PMFSH Past Medical History Medical History Chronic anemia Malnutrition Increased anion gap metabolic acidosis Electrolyte abnormality ESTEFANÍA (acute kidney injury) Venous insufficiency of lower extremity Scoliosis History of ectopic Paroxysmal atrial fibrillation Multiple sclerosis (1997) Hypertension Cellulitis Of the left lower extreme Surgical History Surgical History History of 2 sections Family History Family History Father CAD (coronary artery disease) Hypertension Cerebrovascular accident Mother Blood clot due to device, implant, or graft Social History Social History Social History: The patient is lives with her son for the last 3 years until her recent hospitalization in May at which time she was discharged to [facility] for rehab. She raised 2 sons. She is currently living with her oldest son. At baseline the patient can report the walk. Code status: Full code Surrogate decision maker: Olivier Gonzalez (son) Smoking status: Never smoker Second hand tobacco smoke exposure: No Alcohol intake: never Substance use: never Substance use type: does not use Do You Feel Safe in your Home?: No Lack of Transportation: No Lack of Food: Never True Current Housing: I Have Housing Concerned About Future Housing: No Difficulty Paying Gas/Electric Bills: No Difficulty Paying for Meds: No Currently Unemployed: No Education: Bachelor's Degree Difficulty w/ Childcare or Family Care: No Spiritual care concerns: No Exam 2 Narrative: APPEARANCE: No acute distress, nontoxic, resting in bed EYES: EOMI HEENT: Normocephalic, atraumatic, mucous membranes dry RESPIRATORY: No respiratory distress Clear to auscultation bilaterally with no rhonchi wheezing or rales. CARDIOVASCULAR: Tachycardic and regular rhythm without murmurs rubs or gallops. ABDOMINAL: Soft, nontender, nondistended, no rebound or guarding MUSCULOSKELETAL: Moves all extremities. No clubbing, cyanosis or edema. NEURO: Awake and alert. AOx1. SKIN:: Large stage 4 sacral decubitus ulcer with granulation tissue PSYCHIATRIC: Normal affect/mood, Course Vital Signs Vital signs: Vital Signs Temperature 97.9 F 12/19/24 17:16 Pulse Rate 104 H 12/19/24 17:16 Respiratory Rate 12 12/19/24 17:16 Blood Pressure 119/75 12/19/24 17:16 Pulse Oximetry 99 12/19/24 17:16 Oxygen Delivery Room Air 12/19/24 17:16 Temperature 97.8 F 12/19/24 21:14 Pulse Rate 102 H 12/19/24 21:14 Respiratory Rate 25 H 12/19/24 21:14 Blood Pressure 116/70 12/19/24 21:14 Pulse Oximetry 100 12/19/24 21:14 Oxygen Delivery Room Air 12/19/24 18:20 MDM - Altered Mental Status MDM Narrative Medical decision making narrative: 64-year-old female presented to the ED for altered mental status and concerns for UTI. Patient had indwelling Stone catheter that had significant amount of sediment and crusting in foul smell. Patient was found to have a large sacral decubitus ulcer with appropriate granulation tissue and no active drainage or bleeding with a clean dressing. Remaining skin exam was unrevealing. Heart lungs are clear. No leukocytosis. Lactic acid within normal limits. Chest x- ray showed no acute process. Review of prior records, patient had urine culture revealing of Enterococcus sensitive to vancomycin, ampicillin, and nitrofurantoin. Patient will be started on vancomycin based on the sensitivities. Given acute metabolic encephalopathy due to UTI, patient will require admission. There was also concerns about her living conditions which will need to be addressed further inpatient setting. Case discussed with hospitalist who will admit the patient. Differential Diagnosis Differential diagnosis: Likely altered mental status, delirium, dementia and other (Electrolyte abnormality, UTI, pyelonephritis, pneumonia) Medical Records Attestation: I reviewed the patient's medical records. Lab Data Attestation: I reviewed the patient's lab results. 12/19/24 17:43 12/19/24 17:43 Labs: Lab Results 12/19/24 12/19/24 12/19/24 Range/Units 17:43 18:23 18:45 WBC 9.6 (4.5-10.0) K/mm3 RBC 3.89 L (4.2-5.4) M/mm3 Hgb 10.6 L (12.0-15.0) g/dL Hct 32.0 L (37.0-47.0) % MCV 82.3 (80-100) fl MCH 27.2 (26-34) pg MCHC 33.1 (32-36) g/dl RDW 18.8 H (11.5-14.5) % Plt Count 533 H (150-375) k/mm3 MPV 10.1 (7.4-10.4) fl Immature Gran % (Auto) 0.4 (0-0.5) % Neut % (Auto) 73.9 H (45.5-73.1) % Lymph % (Auto) 16.6 L (18.3-44.2) % Burke % (Auto) 6.2 (2.6-8.5) % Eos % (Auto) 2.3 (0-4.4) % Baso % (Auto) 0.6 (0.2-1.2) % Lymph # (Auto) 1.59 (0.9-3.2) K/mm3 Burke # (Auto) 0.6 (0.1-0.6) K/mm3 Eos # (Auto) 0.2 (0-0.3) K/mm3 Baso # (Auto) 0.1 (0.0-0.1) K/mm3 Abs Immat Gran (auto) 0.04 H (0.00-0.031) K/mm3 Absolute Neuts (auto) 7.1 H (1.3-6.7) K/mm3 Absolute Nucleated RBC 0.000 (0.0-0.012) K/mm3 Nucleated RBC % 0.0 (0.0-0.2) % PT 14.6 (11.1-14.7) Seconds INR 1.1 APTT 31.5 (22.3-36.8) Seconds Sodium 141 (137-145) mmol/L Potassium 3.9 (3.4-5.0) mmol/L Chloride 104 (98-107) mmol/L Carbon Dioxide 29 (22-30) mmol/L Anion Gap 8 (4-12) mmol/L BUN 19 H (7-17) mg/dL Creatinine 0.72 (0.7-1.0) mg/dL Estim Creat Clear Calc 51 ml/min Estimated GFR > 60 (59 - ) Glucose 106 (65-110) mg/dL Lactic Acid 1.3 (0.7-2.0) mmol/L Calcium 9.6 (8.4-10.2) mg/dL Total Bilirubin 0.4 (0.2-1.3) mg/dL AST 22 (14-36) U/L ALT 12 (6-35) U/L Alkaline Phosphatase 73 (38-126) U/L C-Reactive Protein (<1.0) mg/dL Total Protein 8.3 H (6.3-8.2) g/dL Albumin 3.5 (3.5-5.1) g/dL Urine Color Dark yellow (Yellow) Urine Appearance Turbid H (Clear) Urine pH 8.5 (5.0-9.0) Ur Specific [place] 1.021 (1.001-1.035) Urine Protein 2+ H (Negative) mg/dL Urine Glucose (UA) Negative (Negative) mg/dL Urine Ketones Negative (Negative) mg/dL Ur Blood (Man) 3+ H (Negative) Urine Nitrate Negative (Negative) Urine Bilirubin Negative (Negative) Urine Urobilinogen 1.0 (<2.0) mg/dL Add Ur Microanalysis Reviewed Leukocyte Esterase Rfl 3+ H (Negative) CHAI/UL Urine RBC >100 H (0-2) /hpf Urine WBC 51-100 H (0-3) /hpf Ur Squamous Epith Cells None seen (Few) /hpf Urine Bacteria 2+ H /hpf Urine Casts 11-20 Urine Mucus Present /lpf 12/19/24 Range/Units 19:00 WBC (4.5-10.0) K/mm3 RBC (4.2-5.4) M/mm3 Hgb (12.0-15.0) g/dL Hct (37.0-47.0) % MCV (80-100) fl MCH (26-34) pg MCHC (32-36) g/dl RDW (11.5-14.5) % Plt Count (150-375) k/mm3 MPV (7.4-10.4) fl Immature Gran % (Auto) (0-0.5) % Neut % (Auto) (45.5-73.1) % Lymph % (Auto) (18.3-44.2) % Burke % (Auto) (2.6-8.5) % Eos % (Auto) (0-4.4) % Baso % (Auto) (0.2-1.2) % Lymph # (Auto) (0.9-3.2) K/mm3 Burke # (Auto) (0.1-0.6) K/mm3 Eos # (Auto) (0-0.3) K/mm3 Baso # (Auto) (0.0-0.1) K/mm3 Abs Immat Gran (auto) (0.00-0.031) K/mm3 Absolute Neuts (auto) (1.3-6.7) K/mm3 Absolute Nucleated RBC (0.0-0.012) K/mm3 Nucleated RBC % (0.0-0.2) % PT 14.6 (11.1-14.7) Seconds INR 1.1 APTT 29.8 (22.3-36.8) Seconds Sodium (137-145) mmol/L Potassium (3.4-5.0) mmol/L Chloride (98-107) mmol/L Carbon Dioxide (22-30) mmol/L Anion Gap (4-12) mmol/L BUN (7-17) mg/dL Creatinine (0.7-1.0) mg/dL Estim Creat Clear Calc ml/min Estimated GFR (59 - ) Glucose (65-110) mg/dL Lactic Acid (0.7-2.0) mmol/L Calcium (8.4-10.2) mg/dL Total Bilirubin (0.2-1.3) mg/dL AST (14-36) U/L ALT (6-35) U/L Alkaline Phosphatase (38-126) U/L C-Reactive Protein 4.8 H (<1.0) mg/dL Total Protein (6.3-8.2) g/dL Albumin (3.5-5.1) g/dL Urine Color (Yellow) Urine Appearance (Clear) Urine pH (5.0-9.0) Ur Specific [place] (1.001-1.035) Urine Protein (Negative) mg/dL Urine Glucose (UA) (Negative) mg/dL Urine Ketones (Negative) mg/dL Ur Blood (Man) (Negative) Urine Nitrate (Negative) Urine Bilirubin (Negative) Urine Urobilinogen (<2.0) mg/dL Add Ur Microanalysis Leukocyte Esterase Rfl (Negative) CHAI/UL Urine RBC (0-2) /hpf Urine WBC (0-3) /hpf Ur Squamous Epith Cells (Few) /hpf Urine Bacteria /hpf Urine Casts Urine Mucus /lpf Discharge Plan Discharge Clinical Impression: Acute metabolic encephalopathy, Tachycardia UTI (urinary tract infection) Qualifiers: Urinary tract infection type: catheter-associated UTI Indwelling urinary catheter type: indwelling urethral catheter Encounter type: initial encounter Q ualified Code(s): T83.511A - Infection and inflammatory reaction due to indwelling urethral catheter, initial encounter Patient Disposition: Still a Patient Condition: Stable
[2024-12-19 18:42] LABS: Add Urine Microscopic? YES; Appearance Urine Turbid (Clear); Glucose Urine UA Negative (Negative); Leukocyte Esterase Ur 3+ LEU/UL (Negative); Need Manual Microscopic Reviewed; Nitrate Urine Negative (Negative); Specific Grav Ur 1.021 (1.001-1.035)
[2024-12-19 19:14] VITALS: BP 114/80; PULSE 110; RESP 22; O2SAT 100
[2024-12-19 19:18] LABS: INR 1.1; Partial Thromboplastin Time 29.8 Seconds (22.3-36.8); Prothrombin Time 14.6 Seconds (11.1-14.7)
[2024-12-19] MEDS: SODIUM CHLORIDE 0.9% IV 500 ML 999 ML IV CONT (19:20)
[2024-12-19] MEDS: SODIUM CHLORIDE 0.9% IV 1,000 ML 999 ML IV CONT (19:20)
[2024-12-19 19:23] LABS: CRP 4.8 mg/dL (<1.0)
[2024-12-19] MEDS: VANCOMYCIN 1,250 MG/NS 250 ML 1,250 MG/250 ML BAG 166.67 MG IVPB (19:44)
[2024-12-19 21:14] VITALS: BP 116/70; PULSE 102; RESP 25; TEMP 36.6; O2SAT 100
[2024-12-19 21:27] VITALS: BMI 19.4
--- NOTE | 2024-12-19 21:37 | ADMGEN ---
This patient, Jolene Gonzalez, was admitted to [facility] Surg Room 331-01. Patient/family oriented to hospital policies and general routines including ID bracelet, bed and alarms, visiting hours, pain management, procedures, bathroom and other care routines, personal items, smoking policy, room service/diet, and visiting hours. Information on how to activate the Rapid Response Team has been discussed. Patient/Family are encouraged to report perceived risks to care and to ask questions if they do not understand what they are told or what they should do.
--- NOTE | 2024-12-19 21:39 | WNDPHOTO ---
PHOTO ONLY - See Nursing Notes and/ or assessments for documentation.
[2024-12-19] MEDS: ENOXAPARIN 60 MG/0.6 ML SYRINGE 50 MG SUB-Q (21:57)
[2024-12-19 22:00] VITALS: BP 147/71; PULSE 108; RESP 18; TEMP 36.5; O2SAT 100
[2024-12-19 22:00] LABS: MRSA (PCR) NOT DETECTED (NOT DETECTE)
--- NOTE | 2024-12-19 22:48 | P.HP_ITS ---
H&P: HPI History of Present Illness Date/Time: 12/19/24 22:48 Chief Complaint: Confusion Narrative: This is a 64 year old female patient with a history of MS and neurogenic bladder with long-term indwelling catheter use who is admitted to the hospital for confusion felt to be acute metabolic encephalopathy related to UTI. Patient's son, her primary dough cutting machine operator, noted that she was more confused today than normal and brought her to ER suspecting a urinary tract infection. Catheter was dried and crusted per ER provider repot. Catheter changed and urine sample sent from [facility]. UA concerning for UTI. Prior urine culture grew Enterococcus so patient was started on Rocephin and Vancomycin per ER. This will continue for now though changing to Unasyn is a consideration. Patient noted to be tachycardic even after IV fluids in ER. She is afebrile and WBC is on high side of normal but not elevated. CXR showed right hemidiaphragm elevation but patient not having significant dyspnea. She has history of dysphagia and has G- tube in place but already received Lovenox this evening. We will resume Eliquis tomorrow. Patient is awake, alert to self only. She denies any pain, difficulty breathing, nausea or any other complaints on ROS. She has a chronic sacral decubitus wound that is in the process of healing. RN spoke to patient's son who reported she gets Jevity 1.5 bolus tube feeds 250 mL each with 180 mL water flushes 4 times a day. This will be ordered. Will also add Ryan for wound healing. Consider dietary consult if desired. Review of Systems Review of Systems: All systems reviewed & are unremarkable except as noted in HPI and below PMFSH Past Medical History Medical History Depression Fever Sepsis Abnormal urinalysis Acidosis, lactic Acute hypokalemia Hypernatremia Dehydration [id number] kidney injury Aspiration pneumonia Laceration without foreign body of other part of head, subsequent encounter Fall Chronic anemia Malnutrition Venous insufficiency of lower extremity Scoliosis History of ectopic Paroxysmal atrial fibrillation Multiple sclerosis (1997) Hypertension Cellulitis Of the left lower extreme Surgical History Surgical History History of 2 sections Family History Family History Father CAD (coronary artery disease) Hypertension Cerebrovascular accident Mother Blood clot due to device, implant, or graft Social History Social History Social History: The patient is lives with her son for the last 3 years until her recent hospitalization in May at which time she was discharged to [facility] for rehab. She raised 2 sons. She is currently living with her oldest son. Code status: Full code Surrogate decision maker: Olivier Gonzalez (son) Smoking status: Never smoker Second hand tobacco smoke exposure: No Alcohol intake: never Substance use: never Substance use type: does not use Do You Feel Safe in your Home?: No Lack of Transportation: No Lack of Food: Never True Current Housing: I Have Housing Concerned About Future Housing: No Difficulty Paying Gas/Electric Bills: No Difficulty Paying for Meds: No Currently Unemployed: No Education: Bachelor's Degree Difficulty w/ Childcare or Family Care: No Spiritual care concerns: No Meds Home Medications and Allergies Home Medications ?Medication ?Instructions ?Recorded ?Confirmed ?Type dimethyl fumarate 240 mg 240 mg PO BID #180 caps 05/13/24 12/19/24 Rx capsule,delayed release (Tecfidera) valacyclovir 500 mg tablet 1,000 mg (2 x 500 mg) PO Q12HR #17 07/02/24 12/19/24 Rx (Valtrex) tabs polyethylene glycol 3350 17 4 g PO DAILY 10/23/24 12/19/24 History gram/dose oral powder (ClearLax) apixaban 5 mg tablet (Eliquis) 5 mg PO Q12HR #60 tabs 10/29/24 12/19/24 Rx Allergies Allergy/AdvReac Type Severity Reaction Status Date / Time Seasonal Allergies Allergy Mild itchiness Uncoded 11/13/24 02:12 Vital Signs Vital Signs - 24 hr 12/19/24 17:16 12/19/24 18:03 12/19/24 18:20 Temperature 36.6 C Pulse Rate 104 H 105 H Respiratory Rate 12 Blood Pressure 119/75 Pulse Oximetry 99 Oxygen Delivery Room Air Room Air 12/19/24 19:14 12/19/24 21:14 12/19/24 22:00 Temperature 36.6 C 36.5 C Pulse Rate 110 H 102 H 108 H Respiratory Rate 22 H 25 H 18 Blood Pressure 114/80 116/70 147/71 H Pulse Oximetry 100 100 100 Oxygen Delivery Exam Narrative: APPEARANCE: No acute distress, nontoxic, resting in bed EYES: EOMI HEENT: Normocephalic, atraumatic, mucous membranes dry RESPIRATORY: No respiratory distress Clear to auscultation bilaterally with no rhonchi wheezing or rales. CARDIOVASCULAR: Tachycardic rate and regular rhythm. ABDOMINAL: Soft, nontender, nondistended, no rebound or guarding MUSCULOSKELETAL: Moves all extremities. No clubbing, cyanosis or edema. NEURO: Awake and alert. AOx1. SKIN:: Large stage 4 sacral decubitus ulcer with granulation tissue PSYCHIATRIC: Calm and cooperative H&P: Results Labs Labs: Short CBC 12/19/24 Range/Units 17:43 WBC 9.6 (4.5-10.0) K/mm3 Hgb 10.6 L (12.0-15.0) g/dL Hct 32.0 L (37.0-47.0) % Plt Count 533 H (150-375) k/mm3 BMP 12/19/24 17:43 Sodium 141 Potassium 3.9 Chloride 104 Carbon Dioxide 29 BUN 19 H Creatinine 0.72 Glucose 106 Calcium 9.6 Liver Function 12/19/24 Range/Units 17:43 Total Bilirubin 0.4 (0.2-1.3) mg/dL AST 22 (14-36) U/L ALT 12 (6-35) U/L Alkaline Phosphatase 73 (38-126) U/L Albumin 3.5 (3.5-5.1) g/dL Urine 12/19/24 Range/Units 18:23 Urine Color Dark yellow (Yellow) Urine Appearance Turbid H (Clear) Urine pH 8.5 (5.0-9.0) Ur Specific [place] 1.021 (1.001-1.035) Urine Protein 2+ H (Negative) mg/dL Urine Glucose (UA) Negative (Negative) mg/dL Pulse Oximetry SpO2 results: 99-100% on room air Attestation: I personally reviewed and interpreted this pulse oximetry as follows: Interpretation: No need for supplemental oxygenation at this time ECG Attestation: I personally reviewed and interpreted this ECG as follows: ECG completion date: 12/19/24 ECG completion time: 18:39 Prior ECG tracings: available for review Interpretation: Sinus tachycardia rate 111 AZ interval 111 QRS duration 88 QTC 463 QRS axis -42 left axis deviation no STEMI or acute ischemic changes noted Imaging Chest x-ray: Radiologist's impression: CHEST RADIOGRAPH CLINICAL HISTORY: sepsis, AMS . COMPARISON: 10/23/2024 TECHNIQUE: Single portable view of the chest. FINDINGS S shaped curvature of the thoracolumbar spine is present. Cardiomediastinal silhouette is partially obscured. Interval development of significant elevation of the right hemidiaphragm with adjacent compressive atelectasis. The remainder of the lungs are clear. IMPRESSION: Interval development of significant right hemidiaphragmatic elevation with adjacent compressive atelectasis. Reviewed, dictated and finalized at location A. Assessment and Plan Assessment and plan (1) Acute metabolic encephalopathy: Code(s): G93.41 - Metabolic encephalopathy Status: Acute Assessment and Plan: -Suspected related to UTI related to indwelling Stone catheter -Alert and oriented to self but not place, time or event -History of waxing and waning mental status especially in setting of infection and history of MS (2) Multiple sclerosis: Onset Date: 1997 Code(s): G35 - Multiple sclerosis Status: Chronic Assessment and Plan: -Patient seems bed confined due to weakness and MS history, stage 4 sacral decubitus ulcer present -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 requiring director long term care Stone catheter as patient unable to cath self (3) Decubitus ulcer of sacral region, stage 4: Code(s): L89.154 - Pressure ulcer of sacral region, stage 4 Status: Acute Assessment and Plan: -Continue home wound care -Granulation tissue forming and dressing was pristine according to ER provider -Turn frequently and off-load pressure (4) UTI (urinary tract infection): Qualifiers: Encounter type: initial encounter Indwelling urinary catheter type: indwelling urethral catheter Urinary tract infection type: catheter-associated UTI Qualified Code(s): T83.511A - Infection and inflammatory reaction due to indwelling urethral catheter, initial encounter; N39.0 - Urinary tract infection, site not specified Code(s): N39.0 - Urinary tract infection, site not specified Status: Acute Assessment and Plan: -Chronic indwelling Stone catheter -History of Enterococcus UTI -UA with 2+ protein, 3+ blood, 3+ leukocyte esterase, greater than 100 rbc's, 51-100 wbc's and 2+ urine bacteria -ER started Rocephin and vancomycin which will be continued pending urine culture (5) Chronic anemia: Code(s): D64.9 - Anemia, unspecified Status: Chronic Assessment and Plan: -noted history, H&H slightly higher than baseline (6) Dysphagia: Qualifiers: Dysphagia type: unspecified Qualified Code(s): R13.10 - Dysphagia, unspecified Code(s): R13.10 - Dysphagia, unspecified Status: Chronic Assessment and Plan: -History of aspiration pneumonia and chronic dysphagia -Family utilizes bolus tube feedings at home, will continue here (7) Anticoagulated by anticoagulation treatment: Code(s): Z79.01 - FPC (current) use of anticoagulants Status: Chronic Assessment and Plan: -On Eliquis at home, Lovenox given on admission before realization of G-Tube -Resume Eliquis in the morning (8) Tachycardia: Code(s): R00.0 - Tachycardia, unspecified Status: Acute Assessment and Plan: -Heart rate tachycardic in the setting of UTI and metabolic encephalopathy -IV fluids given in ER, resume tube feedings and flushes -Antibiotics for infection -Admit on Telemetry -History of paroxysmal atrial fibrillation but EKG was sinus tachycardia (9) Hypertension: Qualifiers: Hypertension type: primary hypertension Qualified Code(s): I10 - Essential (primary) hypertension Code(s): I10 - Essential (primary) hypertension Status: Chronic Assessment and Plan: -Blood pressure reviewed on admission and stable (10) Malnutrition: Code(s): E46 - Unspecified protein-calorie malnutrition Status: Acute Assessment and Plan: -Chronic malnutrition, resume bolus tube feeds and add Ryan due to healing sacral decubitis -Consider apartment community manager consult if desired Quality VTE Prophylaxis VTE prophylaxis: pharmacologic ordered Hospitalist MIPS Advance Care Plan I have confirmed that the patient's Advanced Care Plan is present, code status is documented, or surrogate decision maker is listed in patient medical record.: Yes Medication Reconciliation I have utilized all available resources to obtain, update and review the patients current medications (includes all prescriptions, OTC, herbals, cannabis, and nutritional supplements).: Yes
[2024-12-20] VITALS (8 sets, daily range): BP systolic 119–144; BP diastolic 71–75; PULSE 85–113; RESP 16–18; TEMP 36.3–37.3; O2SAT 99–100; BMI 19.4
[2024-12-20 06:26] LABS: Hematocrit 28.3 % (37.0-47.0); Hemoglobin 9.4 g/dL (12.0-15.0); Immature Granulocyte Percent A 0.5 % (0-0.5); Lymphocytes Absolute Auto 1.24 K/mm3 (0.9-3.2); Mean Corpuscular HGB Conc 33.2 g/dl (32-36); Mean Corpuscular Hemoglobin 27.3 pg (26-34); Mean Corpuscular Volume 82.3 fl (80-100); Nucleated Red Blood Cells Absolute Auto 0.000 K/mm3 (0.0-0.012); Nucleated Red Blood Cells Perc 0.0 % (0.0-0.2); Platelet Count Result 482 k/mm3 (150-375); Red Blood Count 3.44 M/mm3 (4.2-5.4); White Blood Count 7.7 K/mm3 (4.5-10.0)
[2024-12-20 06:57] LABS: Alanine Aminotransferase 14 U/L (6-35); Albumin Level 3.1 g/dL (3.5-5.1); Alkaline Phosphatase 60 U/L (38-126); Anion Gap 10 mmol/L (4-12); Aspartate Amino Transferase 21 U/L (14-36); Bilirubin,Total 0.5 mg/dL (0.2-1.3); Blood Urea Nitrogen 16 mg/dL (7-17); Calcium 9.4 mg/dL (8.4-10.2); Carbon Dioxide 23 mmol/L (22-30); Chloride 110 mmol/L (98-107); Estimated CRCL calculation 62 ml/min; Estimated Glomerular Filt Rate > 60; Glucose 122 mg/dL (65-110); Magnesium 2.0 mg/dL (1.6-2.3); Potassium 3.3 mmol/L (3.4-5.0); Sodium 143 mmol/L (137-145); Total Protein 7.2 g/dL (6.3-8.2)
[2024-12-20] MEDS: AMPICILLIN SODIUM/SULBACTAM 3 GM in SODIUM CHLORIDE 0.9% IV 100 ML 200 ML IVPB ×3 (09:49→22:42)
[2024-12-20] MEDS: APIXABAN 5 MG TABLET FEED TUBE ×2 (09:53→22:42)
--- NOTE | 2024-12-20 12:06 | P.PNIM_ITS ---
Progress Note: A&P Assessment and Plan (1) Acute metabolic encephalopathy: Code(s): G93.41 - Metabolic encephalopathy Status: Acute Assessment and Plan: -Suspected related to UTI related to indwelling Stone catheter -Alert and oriented to self but not place, time or event -History of waxing and waning mental status especially in setting of infection and history of MS Stop vancomycin, changed to Unasyn IV based on previous urine culture (2) Multiple sclerosis: Onset Date: 1997 Code(s): G35 - Multiple sclerosis Status: Chronic Assessment and Plan: -Patient seems bed confined due to weakness and MS history, stage 4 sacral decubitus ulcer present -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 requiring terminal supervisor Stone catheter as patient unable to cath self (3) Decubitus ulcer of sacral region, stage 4: Code(s): L89.154 - Pressure ulcer of sacral region, stage 4 Status: Acute Assessment and Plan: -Continue home wound care -Granulation tissue forming and dressing was pristine according to ER provider -Turn frequently and off-load pressure (4) UTI (urinary tract infection): Qualifiers: Encounter type: initial encounter Indwelling urinary catheter type: indwelling urethral catheter Urinary tract infection type: catheter-associated UTI Qualified Code(s): T83.511A - Infection and inflammatory reaction due to indwelling urethral catheter, initial encounter; N39.0 - Urinary tract infection, site not specified Code(s): N39.0 - Urinary tract infection, site not specified Status: Acute Assessment and Plan: -Chronic indwelling Stone catheter -History of Enterococcus UTI -UA with 2+ protein, 3+ blood, 3+ leukocyte esterase, greater than 100 rbc's, 51-100 wbc's and 2+ urine bacteria -ER started Rocephin and vancomycin which will be continued pending urine cultu re (5) Chronic anemia: Code(s): D64.9 - Anemia, unspecified Status: Chronic Assessment and Plan: -noted history, H&H slightly higher than baseline (6) Dysphagia: Qualifiers: Dysphagia type: unspecified Qualified Code(s): R13.10 - Dysphagia, unspecified Code(s): R13.10 - Dysphagia, unspecified Status: Chronic Assessment and Plan: Continue G-tube feeding (7) Anticoagulated by anticoagulation treatment: Code(s): Z79.01 - shelter (current) use of anticoagulants Status: Chronic Assessment and Plan: -On Eliquis at home, (8) Tachycardia: Code(s): R00.0 - Tachycardia, unspecified Status: Acute Assessment and Plan: Sinus tachycardia History of paroxysmal atrial fibrillation but EKG was sinus tachycardia Likely resulting from infection (9) Hypertension: Qualifiers: Hypertension type: primary hypertension Qualified Code(s): I10 - Essential (primary) hypertension Code(s): I10 - Essential (primary) hypertension Status: Chronic Assessment and Plan: -Blood pressure reviewed on admission and stable (10) Malnutrition: Code(s): E46 - Unspecified protein-calorie malnutrition Status: Acute Assessment and Plan: -Chronic malnutrition, resume bolus tube feeds and add Ryan due to healing sacral decubitis -Consider associate property manager consult if desired Hypocalcemia Replete with potassium chloride 40 mg daily p.o. Subjective Date/time seen: 12/20/24 12:06 Interval history: I saw examined patient, patient alert, able to engage conversation, has no complaints, no obvious distress. Patient is not oriented x3 Patient is afebrile, blood pressure stable, no O2 desaturation room air Labs reviewed, potassium 3.3 Hemoglobin 9 point from baseline Mental status improving Exam Narrative: APPEARANCE: No acute distress, nontoxic, resting in bed EYES: EOMI HEENT: Normocephalic, atraumatic, mucous membranes dry RESPIRATORY: No respiratory distress Clear to auscultation bilaterally with no rhonchi wheezing or rales. CARDIOVASCULAR: Tachycardic rate and regular rhythm. ABDOMINAL: Soft, nontender, nondistended, no rebound or guarding G tube in-situ MUSCULOSKELETAL: Moves all extremities. No clubbing, cyanosis or edema. NEURO: Awake and alert. Not oriented x3 SKIN:: Large stage 4 sacral decubitus ulcer with granulation tissue PSYCHIATRIC: Calm and cooperative Objective Data Vital Signs Vital Signs: Vital Signs - 24 hr 12/19/24 17:16 12/19/24 18:03 12/19/24 18:20 Temperature 97.9 F Pulse Rate 104 H 105 H Respiratory Rate 12 Blood Pressure 119/75 Pulse Oximetry 99 Oxygen Delivery Room Air Room Air 12/19/24 19:14 12/19/24 21:14 12/19/24 22:00 Temperature 97.8 F 97.7 F Pulse Rate 110 H 102 H 108 H Respiratory Rate 22 H 25 H 18 Blood Pressure 114/80 116/70 147/71 H Pulse Oximetry 100 100 100 Oxygen Delivery 12/20/24 00:00 12/20/24 00:34 12/20/24 04:00 Temperature Pulse Rate 93 85 Respiratory Rate Blood Pressure Pulse Oximetry Oxygen Delivery Room Air 12/20/24 04:00 12/20/24 08:00 12/20/24 08:00 Temperature 97.4 F L Pulse Rate 101 H 98 Respiratory Rate 17 Blood Pressure 144/73 H Pulse Oximetry 99 Oxygen Delivery Room Air Intake/Output Intake/Output: Intake & Output 12/17/24 12/18/24 12/19/24 12/20/24 23:59 23:59 23:59 23:59 Intake Total 1750 520 Balance 1750 520 Meds/Results Medications: Active Medications Generic Name Dose Route Start Last Admin Trade Name Freq PRN Reason Stop Dose Admin Apixaban 5 mg 12/20/24 09:00 12/20/24 09:53 Apixaban 5 Mg Tablet FEED TUBE 5 mg Q12HR APRYL Administration Ampicillin Sodium/Sulbactam 100 mls @ 200 mls/hr 12/20/24 09:00 12/20/24 10:19 Sodium 3 gm/ Sodium Chloride IVPB Infused Q6H APRYL Infusion Miscellaneous Information 0 each 12/20/24 03:00 Dimethyl Fumarate [Tecfidera] 240 Mg Capsule,Delayed Release(Dr/Ec)- Nonformulary. Please XX 01/19/25 02:59 CLARIFY APRYL Non-Formulary Medication 240 mg 12/20/24 09:00 Dimethyl Fumarate [Tecfidera] PO 01/19/25 08:59 BID APRYL Polyethylene Glycol 17 gm 12/20/24 09:00 12/20/24 09:53 Polyethylene Glycol 3350 17 Gm Powd.Pack FEED TUBE 17 gm DAILY APRYL Administration Valacyclovir HCl 1,000 mg 12/20/24 09:00 12/20/24 09:53 Valacyclovir Hcl 500 Mg Tablet FEED TUBE 1,000 mg Q12HR APRYL Administration Radiology Results: ITS Impressions Chest X-Ray 12/19/24 19:23 IMPRESSION: Interval development of significant right hemidiaphragmatic elevation with adjacent compressive atelectasis. Labs Labs: Laboratory Results - last 24 hr 12/19/24 12/19/24 12/19/24 17:43 18:23 18:45 WBC 9.6 RBC 3.89 L Hgb 10.6 L Hct 32.0 L MCV 82.3 MCH 27.2 MCHC 33.1 RDW 18.8 H Plt Count 533 H MPV 10.1 Immature Gran % (Auto) 0.4 Neut % (Auto) 73.9 H Lymph % (Auto) 16.6 L [place] % (Auto) 6.2 Eos % (Auto) 2.3 Baso % (Auto) 0.6 Lymph # (Auto) 1.59 [place] # (Auto) 0.6 Eos # (Auto) 0.2 Baso # (Auto) 0.1 Abs Immat Gran (auto) 0.04 H Absolute Neuts (auto) 7.1 H Absolute Nucleated RBC 0.000 Nucleated RBC % 0.0 PT 14.6 INR 1.1 APTT 31.5 Sodium 141 Potassium 3.9 Chloride 104 Carbon Dioxide 29 Anion Gap 8 BUN 19 H Creatinine 0.72 Estim Creat Clear Calc 51 Estimated GFR > 60 Glucose 106 POC Capillary Glucose Lactic Acid 1.3 Calcium 9.6 Magnesium Total Bilirubin 0.4 AST 22 ALT 12 Alkaline Phosphatase 73 C-Reactive Protein Total Protein 8.3 H Albumin 3.5 Urine Color Dark yellow Urine Appearance Turbid H Urine pH 8.5 Ur Specific [place] 1.021 Urine Protein 2+ H Urine Glucose (UA) Negative Urine Ketones Negative Ur Blood (Man) 3+ H Urine Nitrate Negative Urine Bilirubin Negative Urine Urobilinogen 1.0 Add Ur Microanalysis Reviewed Leukocyte Esterase Rfl 3+ H Urine RBC >100 H Urine WBC 51-100 H Ur Squamous Epith Cells None seen Urine Bacteria 2+ H Urine Casts 11-20 Urine Mucus Present Nasal MRSA (PCR) 12/19/24 12/19/24 12/20/24 19:00 20:47 06:11 WBC 7.7 RBC 3.44 L Hgb 9.4 L Hct 28.3 L MCV 82.3 MCH 27.3 MCHC 33.2 RDW 18.6 H Plt Count 482 H MPV 9.9 Immature Gran % (Auto) 0.5 Neut % (Auto) 69.9 Lymph % (Auto) 16.0 L [place] % (Auto) 7.9 Eos % (Auto) 4.8 H Baso % (Auto) 0.9 Lymph # (Auto) 1.24 [place] # (Auto) 0.6 Eos # (Auto) 0.4 H Baso # (Auto) 0.1 Abs Immat Gran (auto) 0.04 H Absolute Neuts (auto) 5.4 Absolute Nucleated RBC 0.000 Nucleated RBC % 0.0 PT 14.6 INR 1.1 APTT 29.8 Sodium 143 Potassium 3.3 L Chloride 110 H Carbon Dioxide 23 Anion Gap 10 BUN 16 Creatinine 0.58 L Estim Creat Clear Calc 62 Estimated GFR > 60 Glucose 122 H POC Capillary Glucose Lactic Acid Calcium 9.4 Magnesium 2.0 Total Bilirubin 0.5 AST 21 ALT 14 Alkaline Phosphatase 60 C-Reactive Protein 4.8 H Total Protein 7.2 Albumin 3.1 L Urine Color Urine Appearance Urine pH Ur Specific [place] Urine Protein Urine Glucose (UA) Urine Ketones Ur Blood (Man) Urine Nitrate Urine Bilirubin Urine Urobilinogen Add Ur Microanalysis Leukocyte Esterase Rfl Urine RBC Urine WBC Ur Squamous Epith Cells Urine Bacteria Urine Casts Urine Mucus Nasal MRSA (PCR) Not detected 12/20/24 11:42 WBC RBC Hgb Hct MCV MCH MCHC RDW Plt Count MPV Immature Gran % (Auto) Neut % (Auto) Lymph % (Auto) [place] % (Auto) Eos % (Auto) Baso % (Auto) Lymph # (Auto) [place] # (Auto) Eos # (Auto) Baso # (Auto) Abs Immat Gran (auto) Absolute Neuts (auto) Absolute Nucleated RBC Nucleated RBC % PT INR APTT Sodium Potassium Chloride Carbon Dioxide Anion Gap BUN Creatinine Estim Creat Clear Calc Estimated GFR Glucose POC Capillary Glucose 89 Lactic Acid Calcium Magnesium Total Bilirubin AST ALT Alkaline Phosphatase C-Reactive Protein Total Protein Albumin Urine Color Urine Appearance Urine pH Ur Specific [place] Urine Protein Urine Glucose (UA) Urine Ketones Ur Blood (Man) Urine Nitrate Urine Bilirubin Urine Urobilinogen Add Ur Microanalysis Leukocyte Esterase Rfl Urine RBC Urine WBC Ur Squamous Epith Cells Urine Bacteria Urine Casts Urine Mucus Nasal MRSA (PCR)
[2024-12-20] MEDS: POTASSIUM CHLORIDE 20 MEQ PACKET (FOR LIQUID) 40 MEQ PO (13:30)
[2024-12-21] VITALS (12 sets, daily range): BP systolic 122–140; BP diastolic 76–97; PULSE 106–144; RESP 16–20; TEMP 36.7–37.6; O2SAT 96–99
[2024-12-21] MEDS: AMPICILLIN SODIUM/SULBACTAM 3 GM in SODIUM CHLORIDE 0.9% IV 100 ML 200 ML IVPB ×4 (03:10→21:23)
--- NOTE | 2024-12-21 04:57 | P.PNCROSS_ITS ---
Event Note Event Note Event Note: I was notified that patient was having harsh sounding cough and had almost 200 mL of residual from G-tube around 0430 with last tube feed given at 2300. Patient having persistent wet sounding cough and appeared flushed. Course lung sounds noted throughout. Patient reports difficulty breathing. Ordered CXR and nasotracheal suctioning. Residual was discarded rather than replaced into G- tube. Robinal was ordered. RN reported that nasotracheal suctioning did not seem to d o much and patient did not tolerate. Her HR increased to 125.
[2024-12-21 05:53] LABS: Hematocrit 29.3 % (37.0-47.0); Hemoglobin 9.6 g/dL (12.0-15.0); Immature Granulocyte Percent A 0.3 % (0-0.5); Lymphocytes Absolute Auto 1.77 K/mm3 (0.9-3.2); Mean Corpuscular HGB Conc 32.8 g/dl (32-36); Mean Corpuscular Hemoglobin 26.8 pg (26-34); Mean Corpuscular Volume 81.8 fl (80-100); Nucleated Red Blood Cells Absolute Auto 0.000 K/mm3 (0.0-0.012); Nucleated Red Blood Cells Perc 0.0 % (0.0-0.2); Platelet Count Result 487 k/mm3 (150-375); Red Blood Count 3.58 M/mm3 (4.2-5.4); White Blood Count 8.7 K/mm3 (4.5-10.0)
[2024-12-21 06:20] LABS: Alanine Aminotransferase 11 U/L (6-35); Albumin Level 3.3 g/dL (3.5-5.1); Alkaline Phosphatase 69 U/L (38-126); Anion Gap 5 mmol/L (4-12); Aspartate Amino Transferase 19 U/L (14-36); Bilirubin,Total 0.4 mg/dL (0.2-1.3); Blood Urea Nitrogen 31 mg/dL (7-17); Calcium 9.6 mg/dL (8.4-10.2); Carbon Dioxide 28 mmol/L (22-30); Chloride 107 mmol/L (98-107); Estimated CRCL calculation 62 ml/min; Estimated Glomerular Filt Rate > 60; Glucose 100 mg/dL (65-110); Magnesium 2.0 mg/dL (1.6-2.3); Potassium 4.1 mmol/L (3.4-5.0); Sodium 140 mmol/L (137-145); Total Protein 7.7 g/dL (6.3-8.2)
[2024-12-21] MEDS: MORPHINE SULFATE (*CRX) 2 MG/ML INJ IV PUSH (06:21)
[2024-12-21] MEDS: SODIUM CHLORIDE 0.9% IV 500 ML IV CONT (06:21)
[2024-12-21] MEDS: GLYCOPYRROLATE 1 MG TABLET FEED TUBE (06:22)
[2024-12-21] MEDS: POTASSIUM CHLORIDE 20 MEQ PACKET (FOR LIQUID) 40 MEQ PO (10:16)
[2024-12-21] MEDS: APIXABAN 5 MG TABLET FEED TUBE ×2 (10:16→21:23)
--- NOTE | 2024-12-21 11:22 | P.PNIM_ITS ---
Progress Note: A&P Assessment and Plan (1) Acute metabolic encephalopathy: Code(s): G93.41 - Metabolic encephalopathy Status: Acute Assessment and Plan: -Suspected related to UTI related to indwelling Stone catheter -Alert and oriented to self but not place, time or event -History of waxing and waning mental status especially in setting of infection and history of MS -Continue Unasyn pending urine culture (2) UTI (urinary tract infection): Qualifiers: Encounter type: initial encounter Indwelling urinary catheter type: indwelling urethral catheter Urinary tract infection type: catheter-associated UTI Qualified Code(s): T83.511A - Infection and inflammatory reaction due to indwelling urethral catheter, initial encounter; N39.0 - Urinary tract infection, site not specified Code(s): N39.0 - Urinary tract infection, site not specified Status: Acute Assessment and Plan: -Chronic indwelling Stone catheter -History of Enterococcus UTI -UA with 2+ protein, 3+ blood, 3+ leukocyte esterase, greater than 100 rbc's, 51-100 wbc's and 2+ urine bacteria -Continue Unasyn pending culture results (3) Multiple sclerosis: Onset Date: 1997 Code(s): G35 - Multiple sclerosis Status: Chronic Assessment and Plan: -Patient seems bed confined due to weakness and MS history, stage 4 sacral decubitus ulcer present -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 requiring senior living Stone catheter as patient unable to cath self -Dysphagia requiring TF (4) Decubitus ulcer of sacral region, stage 4: Code(s): L89.154 - Pressure ulcer of sacral region, stage 4 Status: Acute Assessment and Plan: -Continue home wound care -Granulation tissue forming and dressing was pristine according to ER provider -Turn frequently and off-load pressure (5) Chronic anemia: Code(s): D64.9 - Anemia, unspecified Status: Chronic Assessment and Plan: -noted history, H&H slightly higher than baseline (6) Dysphagia: Qualifiers: Dysphagia type: unspecified Qualified Code(s): R13.10 - Dysphagia, unspecified Code(s): R13.10 - Dysphagia, unspecified Status: Chronic Assessment and Plan: Continue G-tube feeding -Episode of aspiration 8/9 early AM without hypoxia (7) Anticoagulated by anticoagulation treatment: Code(s): Z79.01 - [facility] (current) use of anticoagulants Status: Chronic Assessment and Plan: -On Eliquis at home, (8) Tachycardia: Code(s): R00.0 - Tachycardia, unspecified Status: Acute Assessment and Plan: Chronic sinus tachycardia with hx of atrial fibrillation in the past Currently worsened in the setting of infection but tolerating well 12/21 add metoprolol 25 mg po q 6 hours (9) Hypertension: Qualifiers: Hypertension type: primary hypertension Qualified Code(s): I10 - Essential (primary) hypertension Code(s): I10 - Essential (primary) hypertension Status: Chronic Assessment and Plan: -12/21 added metoprolol due to tachycardia and hx of PAF (10) Malnutrition: Code(s): E46 - Unspecified protein-calorie malnutrition Status: Acute Assessment and Plan: -Chronic malnutrition, resume bolus tube feeds and added Ryan due to healing sacral decubitis Subjective Date/time seen: 12/21/24 11:22 Interval history: Episode of aspiration early AM 12/21. Not requiring oxygen. Gastric residual was discarded this AM. No recurrent episode. Bolus TF continued. She denied pain or sob. Review of Systems Review of Systems: ROS unobtainable: Yes unobtainable due to medical condition Exam Narrative: HEENT: PERRL, sclerae nonicteric, pharyngeal mucosa pink and intact NECK: No JVD CHEST: Few bibasilar crackles. Normal effort HEART: NL S1/S2, regular, tachycardic, no murmur ABDOMEN: BS+, soft, nontender, no mass, no bruits EXTREMITIES: No cyanosis, edema, or clubbing NEUROLOGIC: CN intact and symmetric to inspection. MUSCULOSKELETAL: Kyphosis. PSYCH: Alert. Oriented to person. Speech sparse. Objective Data Vital Signs Vital Signs: Vital Signs - 24 hr 12/20/24 12:00 12/20/24 14:00 12/20/24 16:00 Temperature 99.2 F Pulse Rate 112 H 113 H 110 H Respiratory Rate 18 Blood Pressure 119/71 Pulse Oximetry 99 Oxygen Delivery 12/20/24 20:00 12/20/24 20:00 12/20/24 21:16 Temperature 98.0 F Pulse Rate 102 H 108 H 102 H Respiratory Rate 16 16 Blood Pressure 141/75 H Pulse Oximetry 100 100 Oxygen Delivery Room Air 12/21/24 00:00 12/21/24 04:00 12/21/24 04:42 Temperature 99.6 F Pulse Rate 106 H 106 H 113 H Respiratory Rate 16 Blood Pressure 140/97 H Pulse Oximetry 98 Oxygen Delivery Intake/Output Intake/Output: Intake & Output 12/18/24 12/19/24 12/20/24 12/21/24 23:59 23:59 23:59 23:59 Intake Total 1750 2180 700 Output Total 500 1200 Balance 1750 1680 -500 Meds/Results Medications: Active Medications Generic Name Dose Route Start Last Admin Trade Name Freq PRN Reason Stop Dose Admin Apixaban 5 mg 12/20/24 09:00 12/21/24 10:16 Apixaban 5 Mg Tablet FEED TUBE 5 mg Q12HR APRYL Administration Glycopyrrolate 1 mg 12/21/24 05:35 12/21/24 06:22 Glycopyrrolate 1 Mg Tablet FEED TUBE 1 mg BID APRYL Administration Ampicillin Sodium/Sulbactam 100 mls @ 200 mls/hr 12/20/24 09:00 12/21/24 11:00 Sodium 3 gm/ Sodium Chloride IVPB Infused Q6H APRYL Infusion Miscellaneous Information 0 each 12/20/24 03:00 Dimethyl Fumarate [Tecfidera] 240 Mg Capsule,Delayed Release(Dr/Ec)- Nonformulary. Please XX 01/19/25 02:59 CLARIFY APRYL Non-Formulary Medication 240 mg 12/20/24 09:00 Dimethyl Fumarate [Tecfidera] PO 01/19/25 08:59 BID APRYL Polyethylene Glycol 17 gm 12/20/24 09:00 12/21/24 10:16 Polyethylene Glycol 3350 17 Gm Powd.Pack FEED TUBE 17 gm DAILY APRYL Administration Potassium Chloride 40 meq 12/20/24 12:30 12/21/24 10:16 Potassium Chloride 20 Meq Packet (For Liquid) PO 40 meq DAILY APRYL Administration Valacyclovir HCl 1,000 mg 12/20/24 09:00 12/21/24 10:16 Valacyclovir Hcl 500 Mg Tablet FEED TUBE 1,000 mg Q12HR APRYL Administration Radiology Results: ITS Impressions Chest X-Ray 12/21/24 06:33 IMPRESSION: 1. Unchanged right basilar opacities with elevation of the right hemidiaphragm, most likely atelectasis although differential includes aspiration or pneumonia. Labs Labs: Laboratory Results - last 24 hr 12/20/24 12/20/2412/21/25 11:42 17:41 00:55 WBC RBC Hgb Hct MCV MCH MCHC RDW Plt Count MPV Immature Gran % (Auto) Neut % (Auto) Lymph % (Auto) [place] % (Auto) Eos % (Auto) Baso % (Auto) Lymph # (Auto) [place] # (Auto) Eos # (Auto) Baso # (Auto) Abs Immat Gran (auto) Absolute Neuts (auto) Absolute Nucleated RBC Nucleated RBC % Sodium Potassium Chloride Carbon Dioxide Anion Gap BUN Creatinine Estim Creat Clear Calc Estimated GFR Glucose POC Capillary Glucose 89 113 H 108 H Calcium Magnesium Total Bilirubin AST ALT Alkaline Phosphatase Total Protein Albumin 12/21/24 12/21/24 05:23 11:16 WBC 8.7 RBC 3.58 L Hgb 9.6 L Hct 29.3 L MCV 81.8 MCH 26.8 MCHC 32.8 RDW 18.4 H Plt Count 487 H MPV 10.8 H Immature Gran % (Auto) 0.3 Neut % (Auto) 64.9 Lymph % (Auto) 20.4 [place] % (Auto) 8.5 Eos % (Auto) 5.0 H Baso % (Auto) 0.9 Lymph # (Auto) 1.77 [place] # (Auto) 0.7 H Eos # (Auto) 0.4 H Baso # (Auto) 0.1 Abs Immat Gran (auto) 0.03 Absolute Neuts (auto) 5.6 Absolute Nucleated RBC 0.000 Nucleated RBC % 0.0 Sodium 140 Potassium 4.1 Chloride 107 Carbon Dioxide 28 Anion Gap 5 BUN 31 H D Creatinine 0.58 L Estim Creat Clear Calc 62 Estimated GFR > 60 Glucose 100 POC Capillary Glucose 100 Calcium 9.6 Magnesium 2.0 Total Bilirubin 0.4 AST 19 ALT 11 Alkaline Phosphatase 69 Total Protein 7.7 Albumin 3.3 L
[2024-12-21] MEDS: METOPROLOL TARTRATE 25 MG TABLET PO ×2 (12:44→21:22)
[2024-12-22] VITALS (11 sets, daily range): BP systolic 108–127; BP diastolic 66–86; PULSE 68–125; RESP 16; TEMP 36.3–36.6; O2SAT 98–100
[2024-12-22] MEDS: AMPICILLIN SODIUM/SULBACTAM 3 GM in SODIUM CHLORIDE 0.9% IV 100 ML 200 ML IVPB ×4 (03:21→21:05)
[2024-12-22 06:37] LABS: Hematocrit 27.8 % (37.0-47.0); Hemoglobin 9.3 g/dL (12.0-15.0); Immature Granulocyte Percent A 0.4 % (0-0.5); Lymphocytes Absolute Auto 1.41 K/mm3 (0.9-3.2); Mean Corpuscular HGB Conc 33.5 g/dl (32-36); Mean Corpuscular Hemoglobin 27.3 pg (26-34); Mean Corpuscular Volume 81.5 fl (80-100); Nucleated Red Blood Cells Absolute Auto 0.000 K/mm3 (0.0-0.012); Nucleated Red Blood Cells Perc 0.0 % (0.0-0.2); Platelet Count Result 450 k/mm3 (150-375); Red Blood Count 3.41 M/mm3 (4.2-5.4); White Blood Count 9.2 K/mm3 (4.5-10.0)
[2024-12-22 07:02] LABS: Alanine Aminotransferase 12 U/L (6-35); Albumin Level 3.1 g/dL (3.5-5.1); Alkaline Phosphatase 63 U/L (38-126); Anion Gap 6 mmol/L (4-12); Aspartate Amino Transferase 40 U/L (14-36); Bilirubin,Total 0.3 mg/dL (0.2-1.3); Blood Urea Nitrogen 36 mg/dL (7-17); Calcium 9.4 mg/dL (8.4-10.2); Carbon Dioxide 26 mmol/L (22-30); Chloride 105 mmol/L (98-107); Estimated CRCL calculation 55 ml/min; Estimated Glomerular Filt Rate > 60; Glucose 123 mg/dL (65-110); Magnesium 2.0 mg/dL (1.6-2.3); Potassium 3.9 mmol/L (3.4-5.0); Sodium 137 mmol/L (137-145); Total Protein 7.3 g/dL (6.3-8.2)
[2024-12-22] MEDS: METOPROLOL TARTRATE 25 MG TABLET PO ×2 (08:33→21:13)
[2024-12-22] MEDS: APIXABAN 5 MG TABLET FEED TUBE ×2 (08:33→21:13)
[2024-12-22] MEDS: POTASSIUM CHLORIDE 20 MEQ PACKET (FOR LIQUID) 40 MEQ PO (08:34)
--- NOTE | 2024-12-22 13:44 | P.PNIM_ITS ---
Progress Note: A&P Assessment and Plan (1) Acute metabolic encephalopathy: Code(s): G93.41 - Metabolic encephalopathy Status: Acute Assessment and Plan: -Suspected related to UTI related to indwelling Stone catheter -Alert and oriented to self but not place, time or event -History of waxing and waning mental status especially in setting of infection and history of MS -Continue Unasyn pending urine culture (2) UTI (urinary tract infection): Qualifiers: Encounter type: initial encounter Indwelling urinary catheter type: indwelling urethral catheter Urinary tract infection type: catheter-associated UTI Qualified Code(s): T83.511A - Infection and inflammatory reaction due to indwelling urethral catheter, initial encounter; N39.0 - Urinary tract infection, site not specified Code(s): N39.0 - Urinary tract infection, site not specified Status: Acute Assessment and Plan: -Chronic indwelling Stone catheter -History of Enterococcus UTI -UA with 2+ protein, 3+ blood, 3+ leukocyte esterase, greater than 100 rbc's, 51-100 wbc's and 2+ urine bacteria -Continue Unasyn pending culture results (started 12/20 @ 0900) -12/22 culture prelim with growth reported (3) Multiple sclerosis: Onset Date: 1997 Code(s): G35 - Multiple sclerosis Status: Chronic Assessment and Plan: -Patient seems bed confined due to weakness and MS history, stage 4 sacral decubitus ulcer present -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 requiring chcf Stone catheter as patient unable to cath self -Dysphagia requiring TF (4) Decubitus ulcer of sacral region, stage 4: Code(s): L89.154 - Pressure ulcer of sacral region, stage 4 Status: Acute Assessment and Plan: -Continue home wound care -Granulation tissue forming and dressing was pristine according to ER provider -Turn frequently and off-load pressure (5) Chronic anemia: Code(s): D64.9 - Anemia, unspecified Status: Chronic Assessment and Plan: -12/22 Hgb 9.3 stable (6) Dysphagia: Qualifiers: Dysphagia type: unspecified Qualified Code(s): R13.10 - Dysphagia, unspecified Code(s): R13.10 - Dysphagia, unspecified Status: Chronic Assessment and Plan: Continue G-tube feeding -Episode of aspiration 12/21 early AM without hypoxia (7) Anticoagulated by anticoagulation treatment: Code(s): Z79.01 - halfway (current) use of anticoagulants Status: Chronic Assessment and Plan: -On Eliquis at home for hx of DVT (8) Tachycardia: Code(s): R00.0 - Tachycardia, unspecified Status: Acute Assessment and Plan: Chronic sinus tachycardia with hx of atrial fibrillation in the past Currently worsened in the setting of infection but tolerating well 12/21 add metoprolol 25 mg po q 6 hours (9) Hypertension: Qualifiers: Hypertension type: primary hypertension Qualified Code(s): I10 - Essential (primary) hypertension Code(s): I10 - Essential (primary) hypertension Status: Chronic Assessment and Plan: -12/21 added metoprolol due to tachycardia and hx of PAF (10) Malnutrition: Code(s): E46 - Unspecified protein-calorie malnutrition Status: Acute Assessment and Plan: -Chronic malnutrition, resume bolus tube feeds and added Ryan due to healing sacral decubitis Subjective Date/time seen: 12/22/24 13:44 Interval history: No further episodes of aspiration noted by staff. Review of Systems Review of Systems: ROS unobtainable: Yes unobtainable due to medical condition Exam Narrative: HEENT: PERRL, sclerae nonicteric, pharyngeal mucosa pink and intact NECK: No JVD CHEST: Clear to auscultation. Normal effort HEART: NL S1/S2, regular, tachycardic, no murmur ABDOMEN: BS+, soft, nontender, no mass, no bruits EXTREMITIES: No cyanosis, edema, or clubbing NEUROLOGIC: CN intact and symmetric to inspection. MUSCULOSKELETAL: Kyphosis. PSYCH: Alert. Oriented to person. Speech sparse. Objective Data Vital Signs Vital Signs: Vital Signs - 24 hr 12/21/24 16:03 12/21/24 20:00 12/21/24 20:00 Temperature Pulse Rate 118 H 116 H Respiratory Rate Blood Pressure Pulse Oximetry Oxygen Delivery Room Air Fraction of Inspired Oxygen 12/21/24 21:22 12/21/24 21:36 12/21/24 22:00 Temperature 99.4 F Pulse Rate 116 H 114 H 122 H Respiratory Rate 20 16 Blood Pressure 122/76 Pulse Oximetry 96 99 Oxygen Delivery Room Air Fraction of Inspired Oxygen 21 12/22/24 00:00 12/22/24 04:00 12/22/24 06:00 Temperature 97.8 F Pulse Rate 101 H 96 112 H Respiratory Rate 16 Blood Pressure 127/86 Pulse Oximetry 98 Oxygen Delivery Fraction of Inspired Oxygen 12/22/24 08:00 12/22/24 08:00 12/22/24 08:33 Temperature Pulse Rate 68 109 H 68 Respiratory Rate 16 Blood Pressure Pulse Oximetry 98 Oxygen Delivery Room Air Fraction of Inspired Oxygen 21 12/22/24 12:00 Temperature Pulse Rate 105 H Respiratory Rate Blood Pressure Pulse Oximetry Oxygen Delivery Fraction of Inspired Oxygen Intake/Output Intake/Output: Intake & Output 12/19/24 12/20/24 12/21/24 12/22/24 23:59 23:59 23:59 23:59 Intake Total 1750 2180 1910 1080 Output Total 500 2350 850 Balance 1750 1680 -440 230 Meds/Results Medications: Active Medications Generic Name Dose Route Start Last Admin Trade Name Freq PRN Reason Stop Dose Admin Apixaban 5 mg 12/20/24 09:00 12/22/24 08:33 Apixaban 5 Mg Tablet FEED TUBE 5 mg Q12HR APRYL Administration Ampicillin Sodium/Sulbactam 100 mls @ 200 mls/hr 12/20/24 09:00 12/22/24 08:33 Sodium 3 gm/ Sodium Chloride IVPB 200 mls/hr Q6H APRYL Administration Metoprolol Tartrate 25 mg 12/21/24 11:35 12/22/24 08:33 Metoprolol Tartrate 25 Mg Tablet PO 25 mg Q12HR APRYL Administration Miscellaneous Information 0 each 12/20/24 03:00 Dimethyl Fumarate [Tecfidera] 240 Mg Capsule,Delayed Release(Dr/Ec)- Nonformulary. Please XX 01/19/25 02:59 CLARIFY APRYL Non-Formulary Medication 240 mg 12/20/24 09:00 Dimethyl Fumarate [Tecfidera] PO 01/19/25 08:59 BID APRYL Polyethylene Glycol 17 gm 12/20/24 09:00 12/22/24 08:34 Polyethylene Glycol 3350 17 Gm Powd.Pack FEED TUBE 17 gm DAILY APRYL Administration Potassium Chloride 40 meq 12/20/24 12:30 12/22/24 08:34 Potassium Chloride 20 Meq Packet (For Liquid) PO 40 meq DAILY APRYL Administration Senna 8.6 mg 12/22/24 21:00 Sennosides 8.6 Mg Tablet PO HS APRYL Valacyclovir HCl 1,000 mg 12/20/24 09:00 12/22/24 08:35 Valacyclovir Hcl 500 Mg Tablet FEED TUBE 1,000 mg Q12HR APRYL Administration Radiology Results: ITS Impressions Chest X-Ray 12/21/24 06:33 IMPRESSION: 1. Unchanged right basilar opacities with elevation of the right hemidiaphragm, most likely atelectasis although differential includes aspiration or pneumonia. Labs Labs: Laboratory Results - last 24 hr 12/21/24 12/22/24 12/22/24 18:33 00:10 05:48 WBC RBC Hgb Hct MCV MCH MCHC RDW Plt Count MPV Immature Gran % (Auto) Neut % (Auto) Lymph % (Auto) [place] % (Auto) Eos % (Auto) Baso % (Auto) Lymph # (Auto) [place] # (Auto) Eos # (Auto) Baso # (Auto) Abs Immat Gran (auto) Absolute Neuts (auto) Absolute Nucleated RBC Nucleated RBC % Sodium Potassium Chloride Carbon Dioxide Anion Gap BUN Creatinine Estim Creat Clear Calc Estimated GFR Glucose POC Capillary Glucose 110 H 102 98 Calcium Magnesium Total Bilirubin AST ALT Alkaline Phosphatase Total Protein Albumin 12/22/24 12/22/24 06:28 11:29 WBC 9.2 RBC 3.41 L Hgb 9.3 L Hct 27.8 L MCV 81.5 MCH 27.3 MCHC 33.5 RDW 18.1 H Plt Count 450 H MPV 10.1 Immature Gran % (Auto) 0.4 Neut % (Auto) 70.9 Lymph % (Auto) 15.3 L [place] % (Auto) 6.4 Eos % (Auto) 6.1 H Baso % (Auto) 0.9 Lymph # (Auto) 1.41 [place] # (Auto) 0.6 Eos # (Auto) 0.6 H Baso # (Auto) 0.1 Abs Immat Gran (auto) 0.04 H Absolute Neuts (auto) 6.5 Absolute Nucleated RBC 0.000 Nucleated RBC % 0.0 Sodium 137 Potassium 3.9 Chloride 105 Carbon Dioxide 26 Anion Gap 6 BUN 36 H Creatinine 0.67 L Estim Creat Clear Calc 55 Estimated GFR > 60 Glucose 123 H POC Capillary Glucose 81 Calcium 9.4 Magnesium 2.0 Total Bilirubin 0.3 AST 40 H ALT 12 Alkaline Phosphatase 63 Total Protein 7.3 Albumin 3.1 L
--- NOTE | 2024-12-22 18:25 | PHAR ---
HOME MED VERIFIED TECFIDERA 250MG CAPSULES 1 BID
[2024-12-22] MEDS: SENNOSIDES 8.6 MG TABLET PO (21:13)
[2024-12-22] MEDS: DIMETHYL FUMARATE 240 MG 240 EACH PO (21:14)
[2024-12-22] MEDS: [UNRECOGNIZED DRUG - OTHER] XX (21:14)
[2024-12-22] MEDS: DIMETHYL FUMARATE XX (21:14)
[2024-12-23] VITALS (15 sets, daily range): BP systolic 102–132; BP diastolic 67–80; PULSE 98–124; RESP 16–18; TEMP 36.3–38.1; O2SAT 96–100
[2024-12-23] MEDS: AMPICILLIN SODIUM/SULBACTAM 3 GM in SODIUM CHLORIDE 0.9% IV 100 ML 200 ML IVPB ×4 (02:47→21:18)
[2024-12-23 06:20] LABS: Hematocrit 29.1 % (37.0-47.0); Hemoglobin 9.6 g/dL (12.0-15.0); Immature Granulocyte Percent A 0.5 % (0-0.5); Lymphocytes Absolute Auto 1.48 K/mm3 (0.9-3.2); Mean Corpuscular HGB Conc 33.0 g/dl (32-36); Mean Corpuscular Hemoglobin 27.2 pg (26-34); Mean Corpuscular Volume 82.4 fl (80-100); Nucleated Red Blood Cells Absolute Auto 0.000 K/mm3 (0.0-0.012); Nucleated Red Blood Cells Perc 0.0 % (0.0-0.2); Platelet Count Result 467 k/mm3 (150-375); Red Blood Count 3.53 M/mm3 (4.2-5.4); White Blood Count 10.4 K/mm3 (4.5-10.0)
[2024-12-23 06:32] LABS: Alanine Aminotransferase 11 U/L (6-35); Albumin Level 3.2 g/dL (3.5-5.1); Alkaline Phosphatase 71 U/L (38-126); Anion Gap 2 mmol/L (4-12); Aspartate Amino Transferase 20 U/L (14-36); Bilirubin,Total 0.3 mg/dL (0.2-1.3); Blood Urea Nitrogen 37 mg/dL (7-17); Calcium 9.2 mg/dL (8.4-10.2); Carbon Dioxide 27 mmol/L (22-30); Chloride 107 mmol/L (98-107); Estimated CRCL calculation 60 ml/min; Estimated Glomerular Filt Rate > 60; Glucose 105 mg/dL (65-110); Magnesium 2.2 mg/dL (1.6-2.3); Potassium 4.0 mmol/L (3.4-5.0); Sodium 136 mmol/L (137-145); Total Protein 7.5 g/dL (6.3-8.2)
[2024-12-23] MEDS: APIXABAN 5 MG TABLET FEED TUBE ×2 (09:26→21:23)
[2024-12-23] MEDS: METOPROLOL TARTRATE 25 MG TABLET PO ×3 (09:26→21:23)
[2024-12-23] MEDS: POTASSIUM CHLORIDE 20 MEQ PACKET (FOR LIQUID) 40 MEQ PO (09:26)
[2024-12-23] MEDS: DIMETHYL FUMARATE 240 MG 240 EACH PO ×2 (09:27→21:31)
--- NOTE | 2024-12-23 14:50 | P.PNIM_ITS ---
Progress Note: A&P Assessment and Plan (1) Acute metabolic encephalopathy: Code(s): G93.41 - Metabolic encephalopathy Status: Acute Assessment and Plan: -Suspected related to UTI related to indwelling Stone catheter -Alert and oriented to self but not place, time or event -History of waxing and waning mental status especially in setting of infection and history of MS -Continue Unasyn pending urine culture (2) UTI (urinary tract infection): Qualifiers: Encounter type: initial encounter Indwelling urinary catheter type: indwelling urethral catheter Urinary tract infection type: catheter-associated UTI Qualified Code(s): T83.511A - Infection and inflammatory reaction due to indwelling urethral catheter, initial encounter; N39.0 - Urinary tract infection, site not specified Code(s): N39.0 - Urinary tract infection, site not specified Status: Acute Assessment and Plan: -Chronic indwelling Stone catheter -History of Enterococcus UTI -UA with 2+ protein, 3+ blood, 3+ leukocyte esterase, greater than 100 rbc's, 51-100 wbc's and 2+ urine bacteria -Continue Unasyn pending culture results (started 12/20 @ 0900) -12/22 culture prelim with growth reported (3) Multiple sclerosis: Onset Date: 1997 Code(s): G35 - Multiple sclerosis Status: Chronic Assessment and Plan: -Patient seems bed confined due to weakness and MS history, stage 4 sacral decubitus ulcer present -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 requiring petroleum terminal [employer] Stone catheter as patient unable to cath self -Dysphagia requiring G-tube placement which was placed on 11/25/2024 (4) Decubitus ulcer of sacral region, stage 4: Code(s): L89.154 - Pressure ulcer of sacral region, stage 4 Status: Acute Assessment and Plan: -Continue home wound care -Granulation tissue forming and dressing was pristine according to ER provider -Turn frequently and off-load pressure (5) Chronic anemia: Code(s): D64.9 - Anemia, unspecified Status: Chronic Assessment and Plan: -12/22 Hgb 9.3 stable (6) Dysphagia: Qualifiers: Dysphagia type: unspecified Qualified Code(s): R13.10 - Dysphagia, unspecified Code(s): R13.10 - Dysphagia, unspecified Status: Chronic Assessment and Plan: Continue G-tube feeding -Episode of aspiration 8/9 early AM without hypoxia (7) Anticoagulated by anticoagulation treatment: Code(s): Z79.01 - senior care (current) use of anticoagulants Status: Chronic Assessment and Plan: -On Eliquis at home for hx of DVT (8) Tachycardia: Code(s): R00.0 - Tachycardia, unspecified Status: Acute Assessment and Plan: Chronic sinus tachycardia with hx of atrial fibrillation in the past Currently worsened in the setting of infection but tolerating well 12/21 add metoprolol 25 mg po q 12 hours Will switch to q.8 hours (9) Hypertension: Qualifiers: Hypertension type: primary hypertension Qualified Code(s): I10 - Essential (primary) hypertension Code(s): I10 - Essential (primary) hypertension Status: Chronic Assessment and Plan: -12/21 added metoprolol due to tachycardia and hx of PAF Echo 11/06 with EF 60-65% grade 1 diastolic dysfunction no significant valvular abnormalities. (10) Malnutrition: Code(s): E46 - Unspecified protein-calorie malnutrition Status: Acute Assessment and Plan: -Chronic malnutrition, resume bolus tube feeds and added Ryan due to healing sacral decubitis Subjective Date/time seen: 12/23/24 14:50 Interval history: Patient awake and alert. Poor historian. Denies any complain. Getting tube feed per nursing staff. No further episodes of aspiration. Review of Systems Review of Systems: ROS unobtainable: Yes unobtainable due to medical condition Exam Narrative: HEENT: PERRL, sclerae nonicteric, NECK: No JVD CHEST: Clear to auscultation. Normal effort HEART: NL S1/S2, regular, tachycardic, no murmur ABDOMEN: BS+, soft, nontender, no mass, no bruits EXTREMITIES: No cyanosis, edema, or clubbing NEUROLOGIC: CN intact and symmetric to inspection. MUSCULOSKELETAL: Kyphosis. PSYCH: Alert. Oriented to person. Speech sparse. Objective Data Vital Signs Vital Signs: Vital Signs - 24 hr 12/22/24 16:00 12/22/24 20:00 12/22/24 20:00 Temperature Pulse Rate 120 H 125 H Respiratory Rate Blood Pressure Pulse Oximetry Oxygen Delivery Room Air Fraction of Inspired Oxygen 12/22/24 21:13 12/22/24 22:00 12/23/24 00:00 Temperature 97.4 F L Pulse Rate 121 H 125 H 98 Respiratory Rate 16 Blood Pressure 108/76 Pulse Oximetry 99 Oxygen Delivery Fraction of Inspired Oxygen 12/23/24 04:00 12/23/24 06:00 12/23/24 08:15 Temperature 97.3 F L Pulse Rate 115 H 112 H 124 H Respiratory Rate 16 16 Blood Pressure 102/71 Pulse Oximetry 100 96 Oxygen Delivery Room Air Fraction of Inspired Oxygen 21 12/23/24 08:15 12/23/24 09:24 12/23/24 09:26 Temperature Pulse Rate 124 H 124 H 124 H Respiratory Rate 16 Blood Pressure 132/80 Pulse Oximetry 96 Oxygen Delivery Fraction of Inspired Oxygen Intake/Output Intake/Output: Intake & Output 12/20/24 12/21/24 12/22/24 12/23/24 23:59 23:59 23:59 23:59 Intake Total 2180 1910 1380 650 Output Total 500 2350 2250 600 Balance 1443 -262 -874 50 Meds/Results Medications: Active Medications Generic Name Dose Route Start Last Admin Trade Name Freq PRN Reason Stop Dose Admin Apixaban 5 mg 12/20/24 09:00 12/23/24 09:26 Apixaban 5 Mg Tablet FEED TUBE 5 mg Q12HR APRYL Administration Ampicillin Sodium/Sulbactam 100 mls @ 200 mls/hr 12/20/24 09:00 12/23/24 09:26 Sodium 3 gm/ Sodium Chloride IVPB 200 mls/hr Q6H APRYL Administration Metoprolol Tartrate 25 mg 12/21/24 11:35 12/23/24 09:26 Metoprolol Tartrate 25 Mg Tablet PO 25 mg Q12HR APRYL Administration Home Med (Dimethyl 240 mg 12/22/24 20:00 12/23/24 09:27 Fumarate [Tecfidera] PO 01/21/25 19:59 240 mg 240 Mg Capsule, APRYL Administration Delayed Release(Dr/ Ec)) Polyethylene Glycol 17 gm 12/20/24 09:00 12/23/24 09:27 Polyethylene Glycol 3350 17 Gm Powd.Pack FEED TUBE 17 gm DAILY APRYL Administration Potassium Chloride 40 meq 12/20/24 12:30 12/23/24 09:26 Potassium Chloride 20 Meq Packet (For Liquid) PO 40 meq DAILY APRYL Administration Senna 8.6 mg 12/22/24 21:00 12/22/24 21:13 Sennosides 8.6 Mg Tablet PO 8.6 mg HS APRYL Administration Valacyclovir HCl 1,000 mg 12/20/24 09:00 12/23/24 09:26 Valacyclovir Hcl 500 Mg Tablet FEED TUBE 1,000 mg Q12HR APRYL Administration Radiology Results: ITS Impressions Chest X-Ray 12/21/24 06:33 IMPRESSION: 1. Unchanged right basilar opacities with elevation of the right hemidiaphragm, most likely atelectasis although differential includes aspiration or pneumonia. Labs Labs: Laboratory Results - last 24 hr 12/22/24 12/23/24 12/23/24 17:29 00:27 05:57 WBC 10.4 H RBC 3.53 L Hgb 9.6 L Hct 29.1 L MCV 82.4 MCH 27.2 MCHC 33.0 RDW 18.4 H Plt Count 467 H MPV 10.2 Immature Gran % (Auto) 0.5 Neut % (Auto) 70.6 Lymph % (Auto) 14.2 L [place] % (Auto) 9.6 H Eos % (Auto) 4.2 Baso % (Auto) 0.9 Lymph # (Auto) 1.48 [place] # (Auto) 1.0 H Eos # (Auto) 0.4 H Baso # (Auto) 0.1 Abs Immat Gran (auto) 0.05 H Absolute Neuts (auto) 7.4 H Absolute Nucleated RBC 0.000 Nucleated RBC % 0.0 Sodium 136 L Potassium 4.0 Chloride 107 Carbon Dioxide 27 Anion Gap 2 L BUN 37 H Creatinine 0.60 L Estim Creat Clear Calc 60 Estimated GFR > 60 Glucose 105 POC Capillary Glucose 96 94 Calcium 9.2 Magnesium 2.2 Total Bilirubin 0.3 AST 20 ALT 11 Alkaline Phosphatase 71 Total Protein 7.5 Albumin 3.2 L 12/23/24 12/23/24 06:11 11:45 WBC RBC Hgb Hct MCV MCH MCHC RDW Plt Count MPV Immature Gran % (Auto) Neut % (Auto) Lymph % (Auto) [place] % (Auto) Eos % (Auto) Baso % (Auto) Lymph # (Auto) [place] # (Auto) Eos # (Auto) Baso # (Auto) Abs Immat Gran (auto) Absolute Neuts (auto) Absolute Nucleated RBC Nucleated RBC % Sodium Potassium Chloride Carbon Dioxide Anion Gap BUN Creatinine Estim Creat Clear Calc Estimated GFR Glucose POC Capillary Glucose 104 125 H Calcium Magnesium Total Bilirubin AST ALT Alkaline Phosphatase Total Protein Albumin
[2024-12-23] MEDS: ACETAMINOPHEN ELIXIR 325 MG/10.15 ML UDC 650 MG FEED TUBE (18:24)
[2024-12-23] MEDS: SENNOSIDES 8.6 MG TABLET PO (21:23)
[2024-12-24] VITALS (16 sets, daily range): BP systolic 118–135; BP diastolic 75–77; PULSE 92–120; RESP 14–20; TEMP 36.8–36.9; O2SAT 97–99
[2024-12-24] MEDS: ACETYLCYSTEINE 20% INHAL SOLN 800 MG/4 ML VIAL 200 MG INHALATION ×4 (02:28→21:09)
[2024-12-24] MEDS: IPRATROPIUM BR 0.02% INH SOLN 0.5 MG/2.5 ML VIAL INHALATION ×4 (02:34→21:09)
[2024-12-24] MEDS: AMPICILLIN SODIUM/SULBACTAM 3 GM in SODIUM CHLORIDE 0.9% IV 100 ML 200 ML IVPB ×4 (02:35→21:34)
[2024-12-24 06:07] LABS: Hematocrit 26.9 % (37.0-47.0); Hemoglobin 8.8 g/dL (12.0-15.0); Immature Granulocyte Percent A 0.4 % (0-0.5); Lymphocytes Absolute Auto 1.38 K/mm3 (0.9-3.2); Mean Corpuscular HGB Conc 32.7 g/dl (32-36); Mean Corpuscular Hemoglobin 27.4 pg (26-34); Mean Corpuscular Volume 83.8 fl (80-100); Nucleated Red Blood Cells Absolute Auto 0.000 K/mm3 (0.0-0.012); Nucleated Red Blood Cells Perc 0.0 % (0.0-0.2); Platelet Count Result 427 k/mm3 (150-375); Red Blood Count 3.21 M/mm3 (4.2-5.4); White Blood Count 9.6 K/mm3 (4.5-10.0)
[2024-12-24] MEDS: METOPROLOL TARTRATE 25 MG TABLET PO ×3 (06:29→21:34)
[2024-12-24 06:35] LABS: Alanine Aminotransferase 11 U/L (6-35); Albumin Level 2.9 g/dL (3.5-5.1); Alkaline Phosphatase 61 U/L (38-126); Anion Gap 5 mmol/L (4-12); Aspartate Amino Transferase 21 U/L (14-36); Bilirubin,Total 0.2 mg/dL (0.2-1.3); Blood Urea Nitrogen 48 mg/dL (7-17); Calcium 9.4 mg/dL (8.4-10.2); Carbon Dioxide 27 mmol/L (22-30); Chloride 109 mmol/L (98-107); Estimated CRCL calculation 64 ml/min; Estimated Glomerular Filt Rate > 60; Glucose 110 mg/dL (65-110); Magnesium 2.3 mg/dL (1.6-2.3); Potassium 4.0 mmol/L (3.4-5.0); Sodium 141 mmol/L (137-145); Total Protein 7.0 g/dL (6.3-8.2)
[2024-12-24] MEDS: APIXABAN 5 MG TABLET FEED TUBE ×2 (09:46→21:34)
[2024-12-24] MEDS: POTASSIUM CHLORIDE 20 MEQ PACKET (FOR LIQUID) 40 MEQ PO (09:46)
[2024-12-24] MEDS: DIMETHYL FUMARATE 240 MG 240 EACH PO ×2 (09:47→21:38)
[2024-12-24] MEDS: ACETAMINOPHEN ELIXIR 325 MG/10.15 ML UDC 650 MG FEED TUBE (12:24)
--- NOTE | 2024-12-24 12:30 | PCNFU ---
Nutrition Follow-Up Complete: Inability to meet estimated nutrition needs PO related to dysphagia as evidenced by need for full tube feedings Goal:Meet estimated nutrition needs to promote wound healing Pt meeting goal, continue with same goal. Pt current nutrition is Jevity 1.5 250ml bolus QID, 180ml flush QID. Nutrition recommendation: continue with current plan of care Last recorded weight is 48.2 kg. Bowel Motility: Labs Reviewed: Hgb:8.8, HCT:26.9, Alb:2.9, BUN:48, Cr:0.56 Meds Noted: Eliquis, miralax, KCL Skin: Stage IV to sacrum Additional Notes: Pt continues on same tube feeding: Jevity 1.5 bolus feeds of 250ml QID, 180ml flushes QID recommended to provide 1500kcals, 64g protein, 1480ml free water over 24 hrs. Pt tolerating well. Agree with orders. Monitor tube feeding, tolerance, wt, labs. Follow up every Monday and Monday
--- NOTE | 2024-12-24 13:51 | PM.IMPN ---
Progress Note: A&P Assessment and Plan (1) Acute metabolic encephalopathy: Code(s): G93.41 - Metabolic encephalopathy Status: Acute Assessment and Plan: -Suspected related to UTI related to indwelling Stone catheter -Alert and oriented to self but not place, time or event -History of waxing and waning mental status especially in setting of infection and history of MS -Continue Unasyn for possible aspiration pneumonia as well as UTI pending urine culture (2) UTI (urinary tract infection): Qualifiers: Encounter type: initial encounter Indwelling urinary catheter type: indwelling urethral catheter Urinary tract infection type: catheter-associated UTI Qualified Code(s): T83.511A - Infection and inflammatory reaction due to indwelling urethral catheter, initial encounter; N39.0 - Urinary tract infection, site not specified Code(s): N39.0 - Urinary tract infection, site not specified Status: Acute Assessment and Plan: -Chronic indwelling Stone catheter -History of Enterococcus UTI -UA with 2+ protein, 3+ blood, 3+ leukocyte esterase, greater than 100 rbc's, 51-100 wbc's and 2+ urine bacteria -Continue Unasyn pending culture results (started 12/20 @ 0900) -12/22 culture prelim with growth reported (3) Multiple sclerosis: Onset Date: 1997 Code(s): G35 - Multiple sclerosis Status: Chronic Assessment and Plan: -Patient seems bed confined due to weakness and MS history, stage 4 sacral decubitus ulcer present -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 requiring seat cover cutter Stone catheter as patient unable to cath self -Dysphagia requiring G-tube placement which was placed on 11/25/2024 (4) Decubitus ulcer of sacral region, stage 4: Code(s): L89.154 - Pressure ulcer of sacral region, stage 4 Status: Acute Assessment and Plan: -Continue home wound care -Granulation tissue forming and dressing was pristine according to ER provider -Turn frequently and off-load pressure (5) Chronic anemia: Code(s): D64.9 - Anemia, unspecified Status: Chronic Assessment and Plan: -12/22 Hgb 9.3 stable (6) Dysphagia: Qualifiers: Dysphagia type: unspecified Qualified Code(s): R13.10 - Dysphagia, unspecified Code(s): R13.10 - Dysphagia, unspecified Status: Chronic Assessment and Plan: Continue G-tube feeding -Episode of aspiration 12/21 early AM without hypoxia Repeat chest x-ray with worsening opacities Added on Mucomyst/DuoNeb/Mucinex treatment (7) Anticoagulated by anticoagulation treatment: Code(s): 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 Status: Chronic Assessment and Plan: -On Eliquis at home for hx of DVT (8) Tachycardia: Code(s): R00.0 - Tachycardia, unspecified Status: Acute Assessment and Plan: Chronic sinus tachycardia with hx of atrial fibrillation in the past Currently worsened in the setting of infection but tolerating well 12/21 add metoprolol 25 mg po q 12 hours Switched to q.8 hours Improved (9) Hypertension: Qualifiers: Hypertension type: primary hypertension Qualified Code(s): I10 - Essential (primary) hypertension Code(s): I10 - Essential (primary) hypertension Status: Chronic Assessment and Plan: -12/21 added metoprolol due to tachycardia and hx of PAF Echo 11/06 with EF 60-65% grade 1 diastolic dysfunction no significant valvular abnormalities. (10) Malnutrition: Code(s): E46 - Unspecified protein-calorie malnutrition Status: Acute Assessment and Plan: -Chronic malnutrition, resume bolus tube feeds and added Ryan due to healing sacral decubitis (11) Aspiration pneumonia: Code(s): J69.0 - Pneumonitis due to inhalation of food and vomit Status: Acute Assessment and Plan: Chest x-ray with findings pneumonia On Unasyn Aspiration event on 12/21/2024 Added DuoNeb Mucomyst Mucinex Repeat chest x-ray some improvement comparatively Subjective Date/time seen: 12/24/24 13:51 Interval history: Had mild fever last evening. Remains afebrile since then. Still remains confused. Labs and chest x-ray reviewed. Review of Systems Review of Systems: All systems reviewed & are unremarkable except as noted in HPI and below Exam Narrative: HEENT: PERRL, sclerae nonicteric, NECK: No JVD CHEST: Clear to auscultation. Normal effort HEART: NL S1/S2, regular rate and rhythm no murmur ABDOMEN: BS+, soft, nontender, no mass, no bruits EXTREMITIES: No cyanosis, edema, or clubbing NEUROLOGIC: CN intact and symmetric to inspection. MUSCULOSKELETAL: Kyphosis. PSYCH: Alert. Oriented to person. Speech sparse. Objective Data Vital Signs Vital Signs: Vital Signs - 24 hr 12/23/24 14:00 12/23/24 15:29 12/23/24 16:00 Temperature 97.6 F Pulse Rate 117 H 118 H 107 H Respiratory Rate 18 Blood Pressure 127/69 Pulse Oximetry 99 Oxygen Delivery 12/23/24 18:21 12/23/24 18:24 12/23/24 20:00 Temperature 100.5 F H 100.5 F H Pulse Rate Respiratory Rate Blood Pressure Pulse Oximetry Oxygen Delivery Room Air 12/23/24 20:00 12/23/24 21:23 12/23/24 21:44 Temperature 99.6 F Pulse Rate 116 H 110 H 109 H Respiratory Rate 16 Blood Pressure 108/67 Pulse Oximetry 97 Oxygen Delivery 12/24/24 00:00 12/24/24 02:28 12/24/24 02:39 Temperature Pulse Rate 92 102 H 98 Respiratory Rate 18 18 Blood Pressure Pulse Oximetry Oxygen Delivery 12/24/24 04:00 12/24/24 06:00 12/24/24 08:00 Temperature 98.5 F Pulse Rate 94 104 H Respiratory Rate 16 Blood Pressure 118/75 Pulse Oximetry 98 Oxygen Delivery Room Air 12/24/24 08:09 Temperature Pulse Rate 96 Respiratory Rate 20 Blood Pressure Pulse Oximetry Oxygen Delivery Intake/Output Intake/Output: Intake & Output 12/21/24 12/22/24 12/23/24 12/24/24 23:59 23:59 23:59 23:59 Intake Total 1910 1380 2650 770 Output Total 2350 2250 1400 775 Balance -440 -870 1250 -5 Meds/Results Medications: Active Medications Generic Name Dose Route Start Last Admin Trade Name Freq PRN Reason Stop Dose Admin Acetaminophen 650 mg 12/23/24 18:11 12/24/24 12:24 Acetaminophen Elixir 325 Mg/10.15 Ml Udc FEED TUBE 650 mg Q6H PRN Administration Mild Pain (1-3) or Fever Acetylcysteine 200 mg 12/23/24 20:00 12/24/24 13:49 Acetylcysteine 20% Inhal Soln 800 Mg/4 Ml Vial INHALATION 200 mg Q6HRT APRYL Administration Apixaban 5 mg 12/20/24 09:00 12/24/24 09:46 Apixaban 5 Mg Tablet FEED TUBE 5 mg Q12HR APRYL Administration Guaifenesin 200 mg 12/23/24 17:00 12/24/24 12:25 Guaifenesin 200 Mg/10 Ml Udc FEED TUBE 200 mg Q4HR APRYL Administration Ampicillin Sodium/Sulbactam 100 mls @ 200 mls/hr 12/20/24 09:00 12/24/24 10:15 Sodium 3 gm/ Sodium Chloride IVPB Infused Q6H APRYL Infusion Ipratropium [place] 0.5 mg 12/23/24 20:00 12/24/24 13:49 Ipratropium Br 0.02% Inh Soln 0.5 Mg/2.5 Ml Vial INHALATION 0.5 mg Q6HRT APRYL Administration Levalbuterol HCl 0.63 mg 12/23/24 20:00 12/24/24 13:49 Levalbuterol Neb 1.25 Mg/3 Ml INHALATION 0.63 mg Q6HRT APRYL Administration Metoprolol Tartrate 25 mg 12/23/24 15:05 12/24/24 06:29 Metoprolol Tartrate 25 Mg Tablet PO 25 mg Q8HR APRYL Administration Home Med (Dimethyl 240 mg 12/22/24 20:00 12/24/24 09:47 Fumarate [Tecfidera] PO 01/21/25 19:59 240 mg 240 Mg Capsule, APRYL Administration Delayed Release(Dr/ Ec)) Polyethylene Glycol 17 gm 12/20/24 09:00 12/24/24 09:46 Polyethylene Glycol 3350 17 Gm Powd.Pack FEED TUBE 17 gm DAILY APRYL Administration Potassium Chloride 40 meq 12/20/24 12:30 12/24/24 09:46 Potassium Chloride 20 Meq Packet (For Liquid) PO 40 meq DAILY APRYL Administration Senna 8.6 mg 12/22/24 21:00 12/23/24 21:23 Sennosides 8.6 Mg Tablet PO 8.6 mg HS APRYL Administration Valacyclovir HCl 1,000 mg 12/20/24 09:00 12/24/24 09:46 Valacyclovir Hcl 500 Mg Tablet FEED TUBE 1,000 mg Q12HR APRYL Administration Radiology Results: ITS Impressions Chest X-Ray 12/24/24 06:36 Impression: 1: Developing bilateral airspace disease with bandlike opacities of the right mid and lower lung. Differential diagnosis includes edema, pneumonia and/or atelectasis. Labs Labs: Laboratory Results - last 24 hr 12/23/24 12/23/24 12/24/24 16:42 20:12 00:08 WBC RBC Hgb Hct MCV MCH MCHC RDW Plt Count MPV Immature Gran % (Auto) Neut % (Auto) Lymph % (Auto) [place] % (Auto) Eos % (Auto) Baso % (Auto) Lymph # (Auto) [place] # (Auto) Eos # (Auto) Baso # (Auto) Abs Immat Gran (auto) Absolute Neuts (auto) Absolute Nucleated RBC Nucleated RBC % Sodium Potassium Chloride Carbon Dioxide Anion Gap BUN Creatinine Estim Creat Clear Calc Estimated GFR Glucose POC Capillary Glucose 106 H 155 H 102 Calcium Magnesium Total Bilirubin AST ALT Alkaline Phosphatase Total Protein Albumin 12/24/24 12/24/24 12/24/24 05:46 06:30 11:44 WBC 9.6 RBC 3.21 L Hgb 8.8 L Hct 26.9 L MCV 83.8 MCH 27.4 MCHC 32.7 RDW 18.2 H Plt Count 427 H MPV 10.3 Immature Gran % (Auto) 0.4 Neut % (Auto) 68.5 Lymph % (Auto) 14.3 L [place] % (Auto) 10.8 H Eos % (Auto) 5.3 H Baso % (Auto) 0.7 Lymph # (Auto) 1.38 [place] # (Auto) 1.0 H Eos # (Auto) 0.5 H Baso # (Auto) 0.1 Abs Immat Gran (auto) 0.04 H Absolute Neuts (auto) 6.6 Absolute Nucleated RBC 0.000 Nucleated RBC % 0.0 Sodium 141 Potassium 4.0 Chloride 109 H Carbon Dioxide 27 Anion Gap 5 BUN 48 H D Creatinine 0.56 L Estim Creat Clear Calc 64 Estimated GFR > 60 Glucose 110 POC Capillary Glucose 124 H 96 Calcium 9.4 Magnesium 2.3 Total Bilirubin 0.2 AST 21 ALT 11 Alkaline Phosphatase 61 Total Protein 7.0 Albumin 2.9 L
[2024-12-24] MEDS: SENNOSIDES 8.6 MG TABLET PO (21:34)
[2024-12-25] VITALS (10 sets, daily range): BP systolic 116–120; BP diastolic 70–72; PULSE 98–124; RESP 14–20; TEMP 36.6–36.8; O2SAT 93–100
[2024-12-25] MEDS: AMPICILLIN SODIUM/SULBACTAM 3 GM in SODIUM CHLORIDE 0.9% IV 100 ML 200 ML IVPB ×2 (02:57→08:55)
[2024-12-25] MEDS: METOPROLOL TARTRATE 25 MG TABLET PO ×3 (06:43→21:26)
[2024-12-25] MEDS: ACETAMINOPHEN ELIXIR 325 MG/10.15 ML UDC 650 MG FEED TUBE ×2 (06:43→16:24)
[2024-12-25 06:47] LABS: Hematocrit 28.1 % (37.0-47.0); Hemoglobin 9.3 g/dL (12.0-15.0); Immature Granulocyte Percent A 0.4 % (0-0.5); Lymphocytes Absolute Auto 1.43 K/mm3 (0.9-3.2); Mean Corpuscular HGB Conc 33.1 g/dl (32-36); Mean Corpuscular Hemoglobin 27.0 pg (26-34); Mean Corpuscular Volume 81.4 fl (80-100); Nucleated Red Blood Cells Absolute Auto 0.000 K/mm3 (0.0-0.012); Nucleated Red Blood Cells Perc 0.0 % (0.0-0.2); Platelet Count Result 462 k/mm3 (150-375); Red Blood Count 3.45 M/mm3 (4.2-5.4); White Blood Count 9.5 K/mm3 (4.5-10.0)
[2024-12-25 07:10] LABS: Alanine Aminotransferase 13 U/L (6-35); Albumin Level 3.1 g/dL (3.5-5.1); Alkaline Phosphatase 70 U/L (38-126); Anion Gap 7 mmol/L (4-12); Aspartate Amino Transferase 30 U/L (14-36); Bilirubin,Total 0.2 mg/dL (0.2-1.3); Blood Urea Nitrogen 33 mg/dL (7-17); Calcium 9.7 mg/dL (8.4-10.2); Carbon Dioxide 26 mmol/L (22-30); Chloride 111 mmol/L (98-107); Estimated CRCL calculation 61 ml/min; Estimated Glomerular Filt Rate > 60; Glucose 97 mg/dL (65-110); Magnesium 2.4 mg/dL (1.6-2.3); Potassium 4.0 mmol/L (3.4-5.0); Sodium 144 mmol/L (137-145); Total Protein 7.5 g/dL (6.3-8.2)
[2024-12-25] MEDS: IPRATROPIUM BR 0.02% INH SOLN 0.5 MG/2.5 ML VIAL INHALATION ×3 (08:07→21:04)
[2024-12-25] MEDS: ACETYLCYSTEINE 20% INHAL SOLN 800 MG/4 ML VIAL 200 MG INHALATION ×3 (08:07→21:04)
[2024-12-25] MEDS: POTASSIUM CHLORIDE 20 MEQ PACKET (FOR LIQUID) 40 MEQ PO (08:56)
[2024-12-25] MEDS: APIXABAN 5 MG TABLET FEED TUBE ×2 (08:56→21:24)
[2024-12-25] MEDS: DIMETHYL FUMARATE 240 MG 240 EACH PO (08:56)
[2024-12-25] MEDS: AMOXICILLIN/CLAVULANATE K SUSP 500 MG/6.25 ML UD PO ×2 (13:18→21:29)
--- NOTE | 2024-12-25 14:27 | P.PNIM_ITS ---
Progress Note: A&P Assessment and Plan (1) Acute metabolic encephalopathy: Code(s): G93.41 - Metabolic encephalopathy Status: Acute Assessment and Plan: -Suspected related to UTI related to indwelling Stone catheter -Alert and oriented to self but not place, time or event -History of waxing and waning mental status especially in setting of infection and history of MS -Continue Unasyn for possible aspiration pneumonia as well as UTI pending urine culture (2) UTI (urinary tract infection): Qualifiers: Encounter type: initial encounter Indwelling urinary catheter type: indwelling urethral catheter Urinary tract infection type: catheter-associated UTI Qualified Code(s): T83.511A - Infection and inflammatory reaction due to indwelling urethral catheter, initial encounter; N39.0 - Urinary tract infection, site not specified Code(s): N39.0 - Urinary tract infection, site not specified Status: Acute Assessment and Plan: -Chronic indwelling Stone catheter -History of Enterococcus UTI -UA with 2+ protein, 3+ blood, 3+ leukocyte esterase, greater than 100 rbc's, 51-100 wbc's and 2+ urine bacteria -Continue Unasyn pending culture results (started 12/20 @ 0900) -12/22 culture prelim with growth reported (3) Multiple sclerosis: Onset Date: 1997 Code(s): G35 - Multiple sclerosis Status: Chronic Assessment and Plan: -Patient seems bed confined due to weakness and MS history, stage 4 sacral decubitus ulcer present -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 as patient unable to cath self -Dysphagia requiring G-tube placement which was placed on 11/25/2024 (4) Decubitus ulcer of sacral region, stage 4: Code(s): L89.154 - Pressure ulcer of sacral region, stage 4 Status: Acute Assessment and Plan: -Continue home wound care -Granulation tissue forming and dressing was pristine according to ER provider -Turn frequently and off-load pressure (5) Chronic anemia: Code(s): D64.9 - Anemia, unspecified Status: Chronic Assessment and Plan: -12/22 Hgb 9.3 stable (6) Dysphagia: Qualifiers: Dysphagia type: unspecified Qualified Code(s): R13.10 - Dysphagia, unspecified Code(s): R13.10 - Dysphagia, unspecified Status: Chronic Assessment and Plan: Continue G-tube feeding -Episode of aspiration 12/21 early AM without hypoxia Repeat chest x-ray with worsening opacities Added on Mucomyst/DuoNeb/Mucinex treatment (7) Anticoagulated by anticoagulation treatment: Code(s): Z79.01 - emt intermediate (current) use of anticoagulants Status: Chronic Assessment and Plan: -On Eliquis at home for hx of DVT (8) Tachycardia: Code(s): R00.0 - Tachycardia, unspecified Status: Acute Assessment and Plan: Chronic sinus tachycardia with hx of atrial fibrillation in the past Currently worsened in the setting of infection but tolerating well 12/21 add metoprolol 25 mg po q 12 hours Switched to q.8 hours Improved (9) Hypertension: Qualifiers: Hypertension type: primary hypertension Qualified Code(s): I10 - Essential (primary) hypertension Code(s): I10 - Essential (primary) hypertension Status: Chronic Assessment and Plan: -12/21 added metoprolol due to tachycardia and hx of PAF Echo 11/06 with EF 60-65% grade 1 diastolic dysfunction no significant valvular abnormalities. (10) Malnutrition: Code(s): E46 - Unspecified protein-calorie malnutrition Status: Acute Assessment and Plan: -Chronic malnutrition, resume bolus tube feeds and added Ryan due to healing sacral decubitis (11) Aspiration pneumonia: Code(s): J69.0 - Pneumonitis due to inhalation of food and vomit Status: Acute Assessment and Plan: Chest x-ray with findings pneumonia On Unasyn Aspiration event on 12/21/2024 Added DuoNeb Mucomyst Mucinex Repeat chest x-ray some improvement comparatively Subjective Date/time seen: 12/25/24 14:27 Interval history: Had mild fever last evening. Remains afebrile since then. Still remains confused. Labs and chest x-ray reviewed. being treated with Augmentin, will monitor. Review of Systems Review of Systems: ROS unobtainable: Yes unobtainable due to medical condition Exam Narrative: Patient is comfortable, NAD HEENT: eyes are clear and none icteric LUNGS:CTA HEART: RR S1S2 ABD: BS+, Soft and nontender Lower extremities: no edema SKIN: nonjaundiced Neuro: grossly intact. Objective Data Vital Signs Vital Signs: Vital Signs - 24 hr 12/24/24 14:46 12/24/24 20:00 12/24/24 21:09 Temperature Pulse Rate 110 H 120 H Respiratory Rate 14 Blood Pressure Pulse Oximetry Oxygen Delivery Room Air 12/24/24 21:27 12/24/24 21:28 12/24/24 21:34 Temperature Pulse Rate 120 H 116 H 120 H Respiratory Rate 14 14 Blood Pressure Pulse Oximetry 97 Oxygen Delivery Room Air 12/24/24 21:36 12/25/24 06:00 12/25/24 06:43 Temperature 36.9 C 36.6 C Pulse Rate 120 H 124 H 123 H Respiratory Rate 16 18 Blood Pressure 118/76 120/72 Pulse Oximetry 98 98 Oxygen Delivery 12/25/24 07:53 12/25/24 14:00 12/25/24 14:15 Temperature 36.6 C Pulse Rate 101 H 98 Respiratory Rate 20 Blood Pressure 118/70 Pulse Oximetry 97 Oxygen Delivery Room Air Intake/Output Intake/Output: Intake & Output 12/22/24 12/23/24 12/24/24 12/25/24 23:59 23:59 23:59 23:59 Intake Total 1380 2650 1090 590 Output Total 2250 1400 1725 650 Balance -870 1250 -635 -60 Meds/Results Medications: Active Medications Generic Name Dose Route Start Last Admin Trade Name Freq PRN Reason Stop Dose Admin Acetaminophen 650 mg 12/23/24 18:11 12/25/24 06:43 Acetaminophen Elixir 325 Mg/10.15 Ml Udc FEED TUBE 650 mg Q6H PRN Administration Mild Pain (1-3) or Fever Acetylcysteine 200 mg 12/23/24 20:00 12/25/24 08:07 Acetylcysteine 20% Inhal Soln 800 Mg/4 Ml Vial INHALATION 200 mg Q6HRT APRYL Administration Amoxicillin/Clavulanate Potassium 500 mg 12/25/24 14:00 12/25/24 13:18 Amoxicillin/Clavulanate K Susp 500 Mg/6.25 Ml Ud PO 12/26/24 22:01 500 mg Q8HR APRYL Administration Apixaban 5 mg 12/20/24 09:00 12/25/24 08:56 Apixaban 5 Mg Tablet FEED TUBE 5 mg Q12HR APRYL Administration Guaifenesin 200 mg 12/23/24 17:00 12/25/24 13:13 Guaifenesin 200 Mg/10 Ml Udc FEED TUBE 200 mg Q4HR APRYL Administration Ipratropium [place] 0.5 mg 12/23/24 20:00 12/25/24 08:07 Ipratropium Br 0.02% Inh Soln 0.5 Mg/2.5 Ml Vial INHALATION 0.5 mg Q6HRT APRYL Administration Levalbuterol HCl 0.63 mg 12/23/24 20:00 12/25/24 08:07 Levalbuterol Neb 1.25 Mg/3 Ml INHALATION 0.63 mg Q6HRT APRYL Administration Metoprolol Tartrate 25 mg 12/23/24 15:05 12/25/24 14:15 Metoprolol Tartrate 25 Mg Tablet PO 25 mg Q8HR APRYL Administration Home Med (Dimethyl 240 mg 12/22/24 20:00 12/25/24 08:56 Fumarate [Tecfidera] PO 01/21/25 19:59 240 mg 240 Mg Capsule, 0800,1999 APRYL Administration Delayed Release(Dr/ Ec)) Polyethylene Glycol 17 gm 12/20/24 09:00 12/25/24 08:56 Polyethylene Glycol 3350 17 Gm Powd.Pack FEED TUBE Not Given DAILY APRYL Potassium Chloride 40 meq 12/20/24 12:30 12/25/24 08:56 Potassium Chloride 20 Meq Packet (For Liquid) PO 40 meq DAILY APRYL Administration Senna 8.6 mg 12/22/24 21:00 12/24/24 21:34 Sennosides 8.6 Mg Tablet PO 8.6 mg HS APRYL Administration Valacyclovir HCl 1,000 mg 12/20/24 09:00 12/25/24 08:56 Valacyclovir Hcl 500 Mg Tablet FEED TUBE 1,000 mg Q12HR APRYL Administration Radiology Results: ITS Impressions Chest X-Ray 12/24/24 06:36 Impression: 1: Developing bilateral airspace disease with bandlike opacities of the right mi d and lower lung. Differential diagnosis includes edema, pneumonia and/or atelectasis. Labs Labs: Laboratory Results - last 24 hr 12/24/24 12/25/24 12/25/24 18:21 00:01 06:02 WBC RBC Hgb Hct MCV MCH MCHC RDW Plt Count MPV Immature Gran % (Auto) Neut % (Auto) Lymph % (Auto) [place] % (Auto) Eos % (Auto) Baso % (Auto) Lymph # (Auto) [place] # (Auto) Eos # (Auto) Baso # (Auto) Abs Immat Gran (auto) Absolute Neuts (auto) Absolute Nucleated RBC Nucleated RBC % Sodium Potassium Chloride Carbon Dioxide Anion Gap BUN Creatinine Estim Creat Clear Calc Estimated GFR Glucose POC Capillary Glucose 151 H 102 93 Calcium Magnesium Total Bilirubin AST ALT Alkaline Phosphatase Total Protein Albumin 12/25/24 12/25/24 06:03 11:26 WBC 9.5 RBC 3.45 L Hgb 9.3 L Hct 28.1 L MCV 81.4 MCH 27.0 MCHC 33.1 RDW 18.5 H Plt Count 462 H MPV 10.4 Immature Gran % (Auto) 0.4 Neut % (Auto) 68.1 Lymph % (Auto) 15.0 L [place] % (Auto) 10.5 H Eos % (Auto) 5.0 H Baso % (Auto) 1.0 Lymph # (Auto) 1.43 [place] # (Auto) 1.0 H Eos # (Auto) 0.5 H Baso # (Auto) 0.1 Abs Immat Gran (auto) 0.04 H Absolute Neuts (auto) 6.5 Absolute Nucleated RBC 0.000 Nucleated RBC % 0.0 Sodium 144 Potassium 4.0 Chloride 111 H Carbon Dioxide 26 Anion Gap 7 BUN 33 H D Creatinine 0.59 L Estim Creat Clear Calc 61 Estimated GFR > 60 Glucose 97 POC Capillary Glucose 84 Calcium 9.7 Magnesium 2.4 H Total Bilirubin 0.2 AST 30 ALT 13 Alkaline Phosphatase 70 Total Protein 7.5 Albumin 3.1 L Quality VTE Prophylaxis VTE prophylaxis: pharmacologic ordered
--- NOTE | 2024-12-25 15:32 | PCRCNOTE ---
Pt took nebulizer mask off and would not let therapist put back on. Treatment was stopped
[2024-12-25] MEDS: SENNOSIDES 8.6 MG TABLET PO (21:23)
--- NOTE | 2024-12-25 23:13 | PCRCNOTE ---
Pt. response to questions appropriately, She stated she does not want the nebulizer treatments and refused treatment after 3 min at 2104. She apparently refused the 1400 treatment as well. RN was notified and will let Dr know of refusals.
[2024-12-26] VITALS (12 sets, daily range): BP systolic 127–143; BP diastolic 72–85; PULSE 90–116; RESP 14–18; TEMP 36.2–36.7; O2SAT 95–100
[2024-12-26] MEDS: AMOXICILLIN/CLAVULANATE K SUSP 500 MG/6.25 ML UD PO ×3 (05:19→21:09)
[2024-12-26] MEDS: METOPROLOL TARTRATE 25 MG TABLET PO ×3 (05:21→21:09)
[2024-12-26 06:01] LABS: Hematocrit 28.8 % (37.0-47.0); Hemoglobin 9.2 g/dL (12.0-15.0); Immature Granulocyte Percent A 0.6 % (0-0.5); Lymphocytes Absolute Auto 1.39 K/mm3 (0.9-3.2); Mean Corpuscular HGB Conc 31.9 g/dl (32-36); Mean Corpuscular Hemoglobin 27.0 pg (26-34); Mean Corpuscular Volume 84.5 fl (80-100); Nucleated Red Blood Cells Absolute Auto 0.000 K/mm3 (0.0-0.012); Nucleated Red Blood Cells Perc 0.0 % (0.0-0.2); Platelet Count Result 484 k/mm3 (150-375); Red Blood Count 3.41 M/mm3 (4.2-5.4); White Blood Count 9.4 K/mm3 (4.5-10.0)
[2024-12-26 06:19] LABS: Alanine Aminotransferase 15 U/L (6-35); Albumin Level 3.2 g/dL (3.5-5.1); Alkaline Phosphatase 84 U/L (38-126); Anion Gap 3 mmol/L (4-12); Aspartate Amino Transferase 30 U/L (14-36); Bilirubin,Total 0.2 mg/dL (0.2-1.3); Blood Urea Nitrogen 35 mg/dL (7-17); Calcium 9.9 mg/dL (8.4-10.2); Carbon Dioxide 30 mmol/L (22-30); Chloride 107 mmol/L (98-107); Estimated CRCL calculation 60 ml/min; Estimated Glomerular Filt Rate > 60; Glucose 128 mg/dL (65-110); Magnesium 2.2 mg/dL (1.6-2.3); Potassium 4.1 mmol/L (3.4-5.0); Sodium 140 mmol/L (137-145); Total Protein 7.8 g/dL (6.3-8.2)
[2024-12-26] MEDS: ACETYLCYSTEINE 20% INHAL SOLN 800 MG/4 ML VIAL 200 MG INHALATION ×2 (08:16→20:46)
[2024-12-26] MEDS: IPRATROPIUM BR 0.02% INH SOLN 0.5 MG/2.5 ML VIAL INHALATION ×2 (08:16→20:45)
[2024-12-26] MEDS: DIMETHYL FUMARATE 240 MG 240 EACH PO (09:11)
[2024-12-26] MEDS: APIXABAN 5 MG TABLET FEED TUBE ×2 (09:11→21:10)
[2024-12-26] MEDS: POTASSIUM CHLORIDE 20 MEQ PACKET (FOR LIQUID) 40 MEQ PO (09:11)
--- NOTE | 2024-12-26 17:30 | P.PNIM_ITS ---
Progress Note: A&P Assessment and Plan (1) Acute metabolic encephalopathy: Code(s): G93.41 - Metabolic encephalopathy Status: Acute Assessment and Plan: -Suspected related to UTI related to indwelling Stone catheter -Alert and oriented to self but not place, time or event -History of waxing and waning mental status especially in setting of infection and history of MS -Continue Unasyn for possible aspiration pneumonia as well as UTI pending urine culture (2) UTI (urinary tract infection): Qualifiers: Encounter type: initial encounter Indwelling urinary catheter type: indwelling urethral catheter Urinary tract infection type: catheter-associated UTI Qualified Code(s): T83.511A - Infection and inflammatory reaction due to indwelling urethral catheter, initial encounter; N39.0 - Urinary tract infection, site not specified Code(s): N39.0 - Urinary tract infection, site not specified Status: Acute Assessment and Plan: -Chronic indwelling Stone catheter -History of Enterococcus UTI -UA with 2+ protein, 3+ blood, 3+ leukocyte esterase, greater than 100 rbc's, 51-100 wbc's and 2+ urine bacteria -Continue Unasyn pending culture results (started 12/20 @ 0900) -12/22 culture prelim with growth reported (3) Multiple sclerosis: Onset Date: 1997 Code(s): G35 - Multiple sclerosis Status: Chronic Assessment and Plan: -Patient seems bed confined due to weakness and MS history, stage 4 sacral decubitus ulcer present -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 Stone catheter as patient unable to cath self -Dysphagia requiring G-tube placement which was placed on 11/25/2024 (4) Decubitus ulcer of sacral region, stage 4: Code(s): L89.154 - Pressure ulcer of sacral region, stage 4 Status: Acute Assessment and Plan: -Continue home wound care -Granulation tissue forming and dressing was pristine according to ER provider -Turn frequently and off-load pressure (5) Chronic anemia: Code(s): D64.9 - Anemia, unspecified Status: Chronic Assessment and Plan: -12/22 Hgb 9.3 stable (6) Dysphagia: Qualifiers: Dysphagia type: unspecified Qualified Code(s): R13.10 - Dysphagia, unspecified Code(s): R13.10 - Dysphagia, unspecified Status: Chronic Assessment and Plan: Continue G-tube feeding -Episode of aspiration 12/21 early AM without hypoxia Repeat chest x-ray with worsening opacities Added on Mucomyst/DuoNeb/Mucinex treatment (7) Anticoagulated by anticoagulation treatment: Code(s): 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 Status: Chronic Assessment and Plan: -On Eliquis at home for hx of DVT (8) Tachycardia: Code(s): R00.0 - Tachycardia, unspecified Status: Acute Assessment and Plan: Chronic sinus tachycardia with hx of atrial fibrillation in the past Currently worsened in the setting of infection but tolerating well 12/21 add metoprolol 25 mg po q 12 hours Switched to q.8 hours Improved (9) Hypertension: Qualifiers: Hypertension type: primary hypertension Qualified Code(s): I10 - Essential (primary) hypertension Code(s): I10 - Essential (primary) hypertension Status: Chronic Assessment and Plan: -12/21 added metoprolol due to tachycardia and hx of PAF Echo 11/06 with EF 60-65% grade 1 diastolic dysfunction no significant valvular abnormalities. (10) Malnutrition: Code(s): E46 - Unspecified protein-calorie malnutrition Status: Acute Assessment and Plan: -Chronic malnutrition, resume bolus tube feeds and added Ryan due to healing sacral decubitis (11) Aspiration pneumonia: Code(s): J69.0 - Pneumonitis due to inhalation of food and vomit Status: Acute Assessment and Plan: Chest x-ray with findings pneumonia On Unasyn Aspiration event on 12/21/2024 Added DuoNeb Mucomyst Mucinex Repeat chest x-ray some improvement comparatively Plan Had mild fever which is now resolved, Remains afebrile since then. Still remains confused. Labs and chest x-ray reviewed. patient with UTI and aspiration pneumonia, being treated with Augmentin, will monitor. Subjective Date/time seen: 12/26/24 17:30 Interval history: Had mild fever which is now resolved, Remains afebrile since then. Still remains confused. Labs and chest x-ray reviewed. patient with UTI and aspiration pneumonia, being treated with Augmentin, will monitor. Review of Systems Review of Systems: All systems reviewed & are unremarkable except as noted in HPI and below ROS unobtainable: Yes unobtainable due to medical condition Exam Narrative: Patient is comfortable, NAD HEENT: eyes are clear and none icteric LUNGS:CTA HEART: RR S1S2 ABD: BS+, Soft and nontender Lower extremities: no edema SKIN: nonjaundiced Neuro: grossly intact. Objective Data Vital Signs Vital Signs: Vital Signs - 24 hr 12/25/24 20:40 12/25/24 21:04 12/25/24 21:04 Temperature Pulse Rate 102 H 102 H Respiratory Rate 18 18 Blood Pressure Pulse Oximetry 98 Oxygen Delivery Room Air Room Air Fraction of Inspired Oxygen 21 21 12/25/24 21:26 12/25/24 21:36 12/26/24 05:21 Temperature 36.8 C Pulse Rate 100 102 H 105 H Respiratory Rate 20 Blood Pressure 116/71 Pulse Oximetry 100 Oxygen Delivery Fraction of Inspired Oxygen 12/26/24 06:00 12/26/24 06:41 12/26/24 08:14 Temperature 36.2 C L 36.2 C L Pulse Rate 105 H 105 H 100 Respiratory Rate 14 14 14 Blood Pressure 143/85 H 143/85 H Pulse Oximetry 99 99 Oxygen Delivery Fraction of Inspired Oxygen 12/26/24 08:18 12/26/24 08:26 12/26/24 09:28 Temperature Pulse Rate 100 Respiratory Rate 14 Blood Pressure Pulse Oximetry 99 Oxygen Delivery Room Air Room Air Fraction of Inspired Oxygen 12/26/24 14:00 12/26/24 14:27 Temperature 36.7 C Pulse Rate 90 100 Respiratory Rate 18 Blood Pressure 127/72 Pulse Oximetry 100 Oxygen Delivery Fraction of Inspired Oxygen Intake/Output Intake/Output: Intake & Output 12/23/24 12/24/24 12/25/24 12/26/24 23:59 23:59 23:59 23:59 Intake Total 2650 1090 960 0 Output Total 1400 6789 590 2671 Balance 1250 -635 310 -1250 Meds/Results Medications: Active Medications Generic Name Dose Route Start Last Admin Trade Name Freq PRN Reason Stop Dose Admin Acetaminophen 650 mg 12/23/24 18:11 12/25/24 16:24 Acetaminophen Elixir 325 Mg/10.15 Ml Udc FEED TUBE 650 mg Q6H PRN Administration Mild Pain (1-3) or Fever Acetylcysteine 200 mg 12/23/24 20:00 12/26/24 14:18 Acetylcysteine 20% Inhal Soln 800 Mg/4 Ml Vial INHALATION Not Given Q6HRT [facility] Amoxicillin/Clavulanate Potassium 500 mg 12/25/24 14:00 12/26/24 14:28 Amoxicillin/Clavulanate K Susp 500 Mg/6.25 Ml Ud PO 12/26/24 22:01 500 mg Q8HR APRYL Administration Apixaban 5 mg 12/20/24 09:00 12/26/24 09:11 Apixaban 5 Mg Tablet FEED TUBE 5 mg Q12HR APRYL Administration Guaifenesin 200 mg 12/23/24 17:00 12/26/24 14:28 Guaifenesin 200 Mg/10 Ml Udc FEED TUBE 200 mg Q4HR APRYL Administration Ipratropium [place] 0.5 mg 12/23/24 20:00 12/26/24 14:15 Ipratropium Br 0.02% Inh Soln 0.5 Mg/2.5 Ml Vial INHALATION Not Given Q6HRT APRYL Levalbuterol HCl 0.63 mg 12/23/24 20:00 12/26/24 14:16 Levalbuterol Neb 1.25 Mg/3 Ml INHALATION Not Given Q6HRT APRYL Metoprolol Tartrate 25 mg 12/23/24 15:05 12/26/24 14:27 Metoprolol Tartrate 25 Mg Tablet PO 25 mg Q8HR APRYL Administration Home Med (Dimethyl 240 mg 12/22/24 20:00 12/26/24 09:11 Fumarate [Tecfidera] PO 01/21/25 19:59 240 mg 240 Mg Capsule, 0800,1999 APRYL Administration Delayed Release(Dr/ Ec)) Polyethylene Glycol 17 gm 12/20/24 09:00 12/26/24 09:11 Polyethylene Glycol 3350 17 Gm Powd.Pack FEED TUBE 17 gm DAILY APRYL Administration Potassium Chloride 40 meq 12/20/24 12:30 12/26/24 09:11 Potassium Chloride 20 Meq Packet (For Liquid) PO 40 meq DAILY APRYL Administration Senna 8.6 mg 12/22/24 21:00 12/25/24 21:23 Sennosides 8.6 Mg Tablet PO 8.6 mg HS APRYL Administration Valacyclovir HCl 1,000 mg 12/20/24 09:00 12/26/24 09:10 Valacyclovir Hcl 500 Mg Tablet FEED TUBE 1,000 mg Q12HR APRYL Administration Radiology Results: ITS Impressions Chest X-Ray 12/24/24 06:36 Impression: 1: Developing bilateral airspace disease with bandlike opacities of the right mid and lower lung. Differential diagnosis includes edema, pneumonia and/or atelectasis. Labs Labs: Laboratory Results - last 24 hr 12/25/24 12/25/24 12/26/24 18:41 20:37 00:05 WBC RBC Hgb Hct MCV MCH MCHC RDW Plt Count MPV Immature Gran % (Auto) Neut % (Auto) Lymph % (Auto) [place] % (Auto) Eos % (Auto) Baso % (Auto) Lymph # (Auto) [place] # (Auto) Eos # (Auto) Baso # (Auto) Abs Immat Gran (auto) Absolute Neuts (auto) Absolute Nucleated RBC Nucleated RBC % Sodium Potassium Chloride Carbon Dioxide Anion Gap BUN Creatinine Estim Creat Clear Calc Estimated GFR Glucose POC Capillary Glucose 157 H 119 H 100 Calcium Magnesium Total Bilirubin AST ALT Alkaline Phosphatase Total Protein Albumin 12/26/24 12/26/24 12/26/24 05:44 06:15 11:32 WBC 9.4 RBC 3.41 L Hgb 9.2 L Hct 28.8 L MCV 84.5 MCH 27.0 MCHC 31.9 L RDW 18.3 H Plt Count 484 H MPV 10.5 H Immature Gran % (Auto) 0.6 H Neut % (Auto) 70.7 Lymph % (Auto) 14.8 L [place] % (Auto) 7.3 Eos % (Auto) 5.7 H Baso % (Auto) 0.9 Lymph # (Auto) 1.39 [place] # (Auto) 0.7 H Eos # (Auto) 0.5 H Baso # (Auto) 0.1 Abs Immat Gran (auto) 0.06 H Absolute Neuts (auto) 6.7 Absolute Nucleated RBC 0.000 Nucleated RBC % 0.0 Sodium 140 Potassium 4.1 Chloride 107 Carbon Dioxide 30 Anion Gap 3 L BUN 35 H Creatinine 0.60 L Estim Creat Clear Calc 60 Estimated GFR > 60 Glucose 128 H POC Capillary Glucose 133 H 103 Calcium 9.9 Magnesium 2.2 Total Bilirubin 0.2 AST 30 ALT 15 Alkaline Phosphatase 84 Total Protein 7.8 Albumin 3.2 L Quality VTE Prophylaxis VTE prophylaxis: pharmacologic ordered
[2024-12-26] MEDS: SENNOSIDES 8.6 MG TABLET PO (21:10)
[2024-12-27] VITALS (13 sets, daily range): BP systolic 126–139; BP diastolic 66–87; PULSE 100–122; RESP 16–20; TEMP 36.3–36.7; O2SAT 95–100
[2024-12-27] MEDS: METOPROLOL TARTRATE 25 MG TABLET PO ×3 (05:28→21:41)
[2024-12-27 07:01] LABS: Hematocrit 28.9 % (37.0-47.0); Hemoglobin 9.8 g/dL (12.0-15.0); Immature Granulocyte Percent A 0.4 % (0-0.5); Lymphocytes Absolute Auto 1.28 K/mm3 (0.9-3.2); Mean Corpuscular HGB Conc 33.9 g/dl (32-36); Mean Corpuscular Hemoglobin 27.8 pg (26-34); Mean Corpuscular Volume 81.9 fl (80-100); Nucleated Red Blood Cells Absolute Auto 0.000 K/mm3 (0.0-0.012); Nucleated Red Blood Cells Perc 0.0 % (0.0-0.2); Platelet Count Result 515 k/mm3 (150-375); Red Blood Count 3.53 M/mm3 (4.2-5.4); White Blood Count 9.6 K/mm3 (4.5-10.0)
[2024-12-27 07:28] LABS: Alanine Aminotransferase 16 U/L (6-35); Albumin Level 3.3 g/dL (3.5-5.1); Alkaline Phosphatase 79 U/L (38-126); Anion Gap 8 mmol/L (4-12); Aspartate Amino Transferase 29 U/L (14-36); Bilirubin,Total 0.3 mg/dL (0.2-1.3); Blood Urea Nitrogen 22 mg/dL (7-17); Calcium 9.9 mg/dL (8.4-10.2); Carbon Dioxide 26 mmol/L (22-30); Chloride 104 mmol/L (98-107); Estimated CRCL calculation 62 ml/min; Estimated Glomerular Filt Rate > 60; Glucose 110 mg/dL (65-110); Magnesium 2.2 mg/dL (1.6-2.3); Potassium 4.2 mmol/L (3.4-5.0); Sodium 138 mmol/L (137-145); Total Protein 8.0 g/dL (6.3-8.2)
[2024-12-27] MEDS: ACETYLCYSTEINE 20% INHAL SOLN 800 MG/4 ML VIAL 200 MG INHALATION ×3 (08:00→21:37)
[2024-12-27] MEDS: IPRATROPIUM BR 0.02% INH SOLN 0.5 MG/2.5 ML VIAL INHALATION ×3 (08:01→21:37)
[2024-12-27] MEDS: DIMETHYL FUMARATE 240 MG 240 EACH PO ×2 (08:54→21:42)
[2024-12-27] MEDS: POTASSIUM CHLORIDE 20 MEQ PACKET (FOR LIQUID) 40 MEQ PO (08:54)
[2024-12-27] MEDS: APIXABAN 5 MG TABLET FEED TUBE ×2 (08:54→21:41)
--- NOTE | 2024-12-27 13:42 | PCNFU ---
Nutrition Follow-Up Complete: Inability to meet estimated nutrition needs PO related to dysphagia as evidenced by need for full tube feedings Meet estimated nutrition needs to promote wound healing - Progressing. Continue with goal Goal: Pt current nutrition is Bolus tube feedings: Jevity 1.5 Bolus 250 ml QID, flush 180 ml water QID. Flush Ryan BID for wound healing support (90 kcal, 2.5 g protein, arginine and glutamine) Nutrition recommendation: No new recommendations. Continue current nutrition care plan and orders. Agree with orders. Last recorded weight is 48.2 kg. Bowel Motility: +2 BMs 12/26/24 Labs Reviewed: Hgb 8.5, Hct 28.9, Alb 3.3, BUN 22, Cre 0.58 Meds Noted: Eliquis, Miralax, Kcl, senna Skin: Stage 4 pressure injury sacrum Additional Notes: TOlerating tube feedings well, having bowel movements. Ryan flushes BID for wounds. Continue to monitor Monitoring tube feedings tolerance, weights, labs, output, skin Follow up Monday/Monday
--- NOTE | 2024-12-27 16:10 | PC.NURSE ---
Son at bedside. Updated report given.
--- NOTE | 2024-12-27 17:39 | P.PNIM_ITS ---
Progress Note: A&P Assessment and Plan (1) Acute metabolic encephalopathy: Code(s): G93.41 - Metabolic encephalopathy Status: Acute Assessment and Plan: -Suspected related to UTI related to indwelling Stone catheter -Alert and oriented to self but not place, time or event -History of waxing and waning mental status especially in setting of infection and history of MS -Continue Unasyn for possible aspiration pneumonia as well as UTI pending urine culture (2) UTI (urinary tract infection): Qualifiers: Encounter type: initial encounter Indwelling urinary catheter type: indwelling urethral catheter Urinary tract infection type: catheter-associated UTI Qualified Code(s): T83.511A - Infection and inflammatory reaction due to indwelling urethral catheter, initial encounter; N39.0 - Urinary tract infection, site not specified Code(s): N39.0 - Urinary tract infection, site not specified Status: Acute Assessment and Plan: -Chronic indwelling Stone catheter -History of Enterococcus UTI -UA with 2+ protein, 3+ blood, 3+ leukocyte esterase, greater than 100 rbc's, 51-100 wbc's and 2+ urine bacteria -Continue Unasyn pending culture results (started 12/20 @ 0900) -12/22 culture prelim with growth reported (3) Multiple sclerosis: Onset Date: 1997 Code(s): G35 - Multiple sclerosis Status: Chronic Assessment and Plan: -Patient seems bed confined due to weakness and MS history, stage 4 sacral decubitus ulcer present -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 requiring 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 churn Stone catheter as patient unable to cath self -Dysphagia requiring G-tube placement which was placed on 11/25/2024 (4) Decubitus ulcer of sacral region, stage 4: Code(s): L89.154 - Pressure ulcer of sacral region, stage 4 Status: Acute Assessment and Plan: -Continue home wound care -Granulation tissue forming and dressing was pristine according to ER provider -Turn frequently and off-load pressure (5) Chronic anemia: Code(s): D64.9 - Anemia, unspecified Status: Chronic Assessment and Plan: -12/22 Hgb 9.3 stable (6) Dysphagia: Qualifiers: Dysphagia type: unspecified Qualified Code(s): R13.10 - Dysphagia, unspecified Code(s): R13.10 - Dysphagia, unspecified Status: Chronic Assessment and Plan: Continue G-tube feeding -Episode of aspiration 12/21 early AM without hypoxia Repeat chest x-ray with worsening opacities Added on Mucomyst/DuoNeb/Mucinex treatment (7) Anticoagulated by anticoagulation treatment: Code(s): 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 Status: Chronic Assessment and Plan: -On Eliquis at home for hx of DVT (8) Tachycardia: Code(s): R00.0 - Tachycardia, unspecified Status: Acute Assessment and Plan: Chronic sinus tachycardia with hx of atrial fibrillation in the past Currently worsened in the setting of infection but tolerating well 12/21 add metoprolol 25 mg po q 12 hours Switched to q.8 hours Improved (9) Hypertension: Qualifiers: Hypertension type: primary hypertension Qualified Code(s): I10 - Essential (primary) hypertension Code(s): I10 - Essential (primary) hypertension Status: Chronic Assessment and Plan: -12/21 added metoprolol due to tachycardia and hx of PAF Echo 11/06 with EF 60-65% grade 1 diastolic dysfunction no significant valvular abnormalities. (10) Malnutrition: Code(s): E46 - Unspecified protein-calorie malnutrition Status: Acute Assessment and Plan: -Chronic malnutrition, resume bolus tube feeds and added Ryan due to healing sacral decubitis (11) Aspiration pneumonia: Code(s): J69.0 - Pneumonitis due to inhalation of food and vomit Status: Acute Assessment and Plan: Chest x-ray with findings pneumonia On Unasyn Aspiration event on 12/21/2024 Added DuoNeb Mucomyst Mucinex Repeat chest x-ray some improvement comparatively Plan Had mild fever which is now resolved, Remains afebrile since then. Still remains confused. Labs and chest x-ray reviewed. patient with UTI and aspiration pneumonia, being treated with Augmentin, will monitor. patient son is her caregiver, will discharge patient back to her home. Subjective Date/time seen: 12/27/24 17:39 Interval history: Had mild fever which is now resolved, Remains afebrile since then. Still remains confused. Labs and chest x-ray reviewed. patient with UTI and aspiration pneumonia, being treated with Augmentin, will monitor. patient son is her caregiver, will discharge patient back to her home. Review of Systems Review of Systems: ROS unobtainable: Yes unobtainable due to medical condition Exam Narrative: Patient is comfortable, NAD HEENT: eyes are clear and none icteric LUNGS:CTA HEART: RR S1S2 ABD: BS+, Soft and nontender Lower extremities: no edema SKIN: nonjaundiced Neuro: grossly intact. Objective Data Vital Signs Vital Signs: Vital Signs - 24 hr 12/26/24 20:25 12/26/24 20:46 12/26/24 20:46 Temperature Pulse Rate 100 Respiratory Rate 16 Blood Pressure Pulse Oximetry 95 Oxygen Delivery Room Air Room Air 12/26/24 20:57 12/26/24 21:09 12/26/24 22:00 Temperature 36.6 C Pulse Rate 102 H 116 H 98 Respiratory Rate 16 16 Blood Pressure 128/81 Pulse Oximetry 95 Oxygen Delivery 12/27/24 05:28 12/27/24 06:00 12/27/24 08:00 Temperature 36.3 C L Pulse Rate 117 H 117 H Respiratory Rate 18 Blood Pressure 139/87 Pulse Oximetry 95 Oxygen Delivery Room Air 12/27/24 08:03 12/27/24 08:03 12/27/24 08:16 Temperature Pulse Rate 114 H 100 Respiratory Rate 16 16 Blood Pressure Pulse Oximetry 96 Oxygen Delivery Room Air 12/27/24 13:40 12/27/24 14:00 12/27/24 14:03 Temperature 36.5 C Pulse Rate 118 H 118 H 100 Respiratory Rate 20 16 Blood Pressure 126/66 Pulse Oximetry 100 Oxygen Delivery 12/27/24 14:17 Temperature Pulse Rate 104 H Respiratory Rate 18 Blood Pressure Pulse Oximetry Oxygen Delivery Intake/Output Intake/Output: Intake & Output 12/24/24 12/25/24 12/26/24 12/27/24 23:59 23:59 23:59 23:59 Intake Total 1090 960 860 Output Total 4346 109 0044 450 Balance -635 310 390 450 Meds/Results Medications: Active Medications Generic Name Dose Route Start Last Admin Trade Name Freq PRN Reason Stop Dose Admin Acetaminophen 650 mg 12/23/24 18:11 12/25/24 16:24 Acetaminophen Elixir 325 Mg/10.15 Ml Udc FEED TUBE 650 mg Q6H PRN Administration Mild Pain (1-3) or Fever Acetylcysteine 200 mg 12/23/24 20:00 12/27/24 14:23 Acetylcysteine 20% Inhal Soln 800 Mg/4 Ml Vial INHALATION Not Given Q6HRT APRYL Apixaban 5 mg 12/20/24 09:00 12/27/24 08:54 Apixaban 5 Mg Tablet FEED TUBE 5 mg Q12HR APRYL Administration Guaifenesin 200 mg 12/23/24 17:00 12/27/24 12:37 Guaifenesin 200 Mg/10 Ml Udc FEED TUBE 200 mg Q4HR APRYL Administration Ipratropium [place] 0.5 mg 12/23/24 20:00 12/27/24 14:23 Ipratropium Br 0.02% Inh Soln 0.5 Mg/2.5 Ml Vial INHALATION Not Given Q6HRT APRYL Levalbuterol HCl 0.63 mg 12/23/24 20:00 12/27/24 14:24 Levalbuterol Neb 1.25 Mg/3 Ml INHALATION Not Given Q6HRT APRYL Metoprolol Tartrate 25 mg 12/23/24 15:05 12/27/24 13:40 Metoprolol Tartrate 25 Mg Tablet PO 25 mg Q8HR APRYL Administration Home Med (Dimethyl 240 mg 12/22/24 20:00 12/27/24 08:54 Fumarate [Tecfidera] PO 01/21/25 19:59 240 mg 240 Mg Capsule, 799,1999 APRYL Administration Delayed Release(Dr/ Ec)) Polyethylene Glycol 17 gm 12/20/24 09:00 12/27/24 08:55 Polyethylene Glycol 3350 17 Gm Powd.Pack FEED TUBE Not Given DAILY [facility] Potassium Chloride 40 meq 12/20/24 12:30 12/27/24 08:54 Potassium Chloride 20 Meq Packet (For Liquid) PO 40 meq DAILY APRYL Administration Senna 8.6 mg 12/22/24 21:00 12/26/24 21:10 Sennosides 8.6 Mg Tablet PO 8.6 mg HS APRYL Administration Radiology Results: ITS Impressions Chest X-Ray 12/27/24 13:29 Impression: 1: Persistent right basilar airspace consolidation which may represent atelectasis and/or pneumonia. Labs Labs: Laboratory Results - last 24 hr 12/26/24 12/26/24 12/27/24 18:15 20:49 00:10 WBC RBC Hgb Hct MCV MCH MCHC RDW Plt Count MPV Immature Gran % (Auto) Neut % (Auto) Lymph % (Auto) [place] % (Auto) Eos % (Auto) Baso % (Auto) Lymph # (Auto) [place] # (Auto) Eos # (Auto) Baso # (Auto) Abs Immat Gran (auto) Absolute Neuts (auto) Absolute Nucleated RBC Nucleated RBC % Sodium Potassium Chloride Carbon Dioxide Anion Gap BUN Creatinine Estim Creat Clear Calc Estimated GFR Glucose POC Capillary Glucose 96 119 H 111 H Calcium Magnesium Total Bilirubin AST ALT Alkaline Phosphatase Total Protein Albumin 12/27/24 12/27/24 12/27/24 06:06 06:50 11:45 WBC 9.6 RBC 3.53 L Hgb 9.8 L Hct 28.9 L MCV 81.9 MCH 27.8 MCHC 33.9 RDW 17.8 H Plt Count 515 H MPV 10.6 H Immature Gran % (Auto) 0.4 Neut % (Auto) 75.2 H Lymph % (Auto) 13.4 L [place] % (Auto) 7.3 Eos % (Auto) 3.0 Baso % (Auto) 0.7 Lymph # (Auto) 1.28 [place] # (Auto) 0.7 H Eos # (Auto) 0.3 Baso # (Auto) 0.1 Abs Immat Gran (auto) 0.04 H Absolute Neuts (auto) 7.2 H Absolute Nucleated RBC 0.000 Nucleated RBC % 0.0 Sodium 138 Potassium 4.2 Chloride 104 Carbon Dioxide 26 Anion Gap 8 BUN 22 H D Creatinine 0.58 L Estim Creat Clear Calc 62 Estimated GFR > 60 Glucose 110 POC Capillary Glucose 135 H 104 Calcium 9.9 Magnesium 2.2 Total Bilirubin 0.3 AST 29 ALT 16 Alkaline Phosphatase 79 Total Protein 8.0 Albumin 3.3 L Quality VTE Prophylaxis VTE prophylaxis: pharmacologic ordered
[2024-12-28] VITALS (10 sets, daily range): BP systolic 114–121; BP diastolic 65–73; PULSE 98–118; RESP 16–18; TEMP 36.8–37.1; O2SAT 95–99
[2024-12-28] MEDS: IPRATROPIUM BR 0.02% INH SOLN 0.5 MG/2.5 ML VIAL INHALATION ×3 (02:11→14:01)
[2024-12-28] MEDS: ACETYLCYSTEINE 20% INHAL SOLN 800 MG/4 ML VIAL 200 MG INHALATION ×3 (02:11→14:01)
[2024-12-28 05:51] LABS: Hematocrit 26.9 % (37.0-47.0); Hemoglobin 9.0 g/dL (12.0-15.0); Immature Granulocyte Percent A 0.4 % (0-0.5); Lymphocytes Absolute Auto 1.60 K/mm3 (0.9-3.2); Mean Corpuscular HGB Conc 33.5 g/dl (32-36); Mean Corpuscular Hemoglobin 27.4 pg (26-34); Mean Corpuscular Volume 81.8 fl (80-100); Nucleated Red Blood Cells Absolute Auto 0.000 K/mm3 (0.0-0.012); Nucleated Red Blood Cells Perc 0.0 % (0.0-0.2); Platelet Count Result 502 k/mm3 (150-375); Red Blood Count 3.29 M/mm3 (4.2-5.4); White Blood Count 9.3 K/mm3 (4.5-10.0)
[2024-12-28] MEDS: METOPROLOL TARTRATE 25 MG TABLET PO ×2 (06:15→14:15)
[2024-12-28] MEDS: APIXABAN 5 MG TABLET FEED TUBE (09:05)
[2024-12-28] MEDS: POTASSIUM CHLORIDE 20 MEQ PACKET (FOR LIQUID) 40 MEQ PO (09:05)
[2024-12-28] MEDS: DIMETHYL FUMARATE 240 MG 240 EACH PO (09:05)
--- NOTE | 2024-12-28 14:07 | P.DS_ITS ---
DS: Admitting Diagnosis Discharge Date 12/28/24 Admitting Diagnosis Confusion DS: Discharge Diagnosis Discharge Diagnosis (1) Acute metabolic encephalopathy: Code(s): G93.41 - Metabolic encephalopathy Status: Acute Assessment and Plan: -Suspected related to UTI related to indwelling Stone catheter -Alert and oriented to self but not place, time or event -History of waxing and waning mental status especially in setting of infection and history of MS -Continue Unasyn for possible aspiration pneumonia as well as UTI pending urine culture (2) UTI (urinary tract infection): Qualifiers: Encounter type: initial encounter Indwelling urinary catheter type: indwelling urethral catheter Urinary tract infection type: catheter-associated UTI Qualified Code(s): T83.511A - Infection and inflammatory reaction due to indwelling urethral catheter, initial encounter; N39.0 - Urinary tract infection, site not specified Code(s): N39.0 - Urinary tract infection, site not specified Status: Acute Assessment and Plan: -Chronic indwelling Stone catheter -History of Enterococcus UTI -UA with 2+ protein, 3+ blood, 3+ leukocyte esterase, greater than 100 rbc's, 51-100 wbc's and 2+ urine bacteria -Continue Unasyn pending culture results (started 12/20 @ 0900) -12/22 culture prelim with growth reported (3) Multiple sclerosis: Onset Date: 1997 Code(s): G35 - Multiple sclerosis Status: Chronic Assessment and Plan: -Patient seems bed confined due to weakness and MS history, stage 4 sacral decubitus ulcer present -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 catheter as patient unable to cath self -Dysphagia requiring G-tube placement which was placed on 11/25/2024 (4) Decubitus ulcer of sacral region, stage 4: Code(s): L89.154 - Pressure ulcer of sacral region, stage 4 Status: Acute Assessment and Plan: -Continue home wound care -Granulation tissue forming and dressing was pristine according to ER provider -Turn frequently and off-load pressure (5) Chronic anemia: Code(s): D64.9 - Anemia, unspecified Status: Chronic Assessment and Plan: -12/22 Hgb 9.3 stable (6) Dysphagia: Qualifiers: Dysphagia type: unspecified Qualified Code(s): R13.10 - Dysphagia, unspecified Code(s): R13.10 - Dysphagia, unspecified Status: Chronic Assessment and Plan: Continue G-tube feeding -Episode of aspiration 12/21 early AM without hypoxia Repeat chest x-ray with worsening opacities Added on Mucomyst/DuoNeb/Mucinex treatment (7) Anticoagulated by anticoagulation treatment: Code(s): Z79.01 - intermediate project manager (current) use of anticoagulants Status: Chronic Assessment and Plan: -On Eliquis at home for hx of DVT (8) Tachycardia: Code(s): R00.0 - Tachycardia, unspecified Status: Acute Assessment and Plan: Chronic sinus tachycardia with hx of atrial fibrillation in the past Currently worsened in the setting of infection but tolerating well 12/21 add metoprolol 25 mg po q 12 hours Switched to q.8 hours Improved (9) Hypertension: Qualifiers: Hypertension type: primary hypertension Qualified Code(s): I10 - Essential (primary) hypertension Code(s): I10 - Essential (primary) hypertension Status: Chronic Assessment and Plan: -12/21 added metoprolol due to tachycardia and hx of PAF Echo 11/06 with EF 60-65% grade 1 diastolic dysfunction no significant valvular abnormalities. (10) Malnutrition: Code(s): E46 - Unspecified protein-calorie malnutrition Status: Acute Assessment and Plan: -Chronic malnutrition, resume bolus tube feeds and added Ryan due to healing sacral decubitis (11) Aspiration pneumonia: Code(s): J69.0 - Pneumonitis due to inhalation of food and vomit Status: Acute Assessment and Plan: Chest x-ray with findings pneumonia On Unasyn Aspiration event on 12/21/2024 Added DuoNeb Mucomyst Mucinex Repeat chest x-ray some improvement comparatively Plan Had mild fever which is now resolved, Remains afebrile since then. Still remains confused. Labs and chest x-ray reviewed. patient with UTI and aspiration pneumonia, being treated with Augmentin, will monitor. patient son is her caregiver, will discharge patient back to her home. DS: Summary Hospital Course Hospital Course: This is a 64 year old female patient with a history of MS and neurogenic bladder with long-term indwelling catheter use who is admitted to the hospital for confusion felt to be acute metabolic encephalopathy related to UTI. patient urine grew Enterococcus faecalis and corynebacterium urealyticum, there was also concern that patient have aspiration pneumonia, as patient has Gtube, patient was treated with Unsyn, patient clinical symptoms are now baseline her son stated she can be discharged home. Time Spent with Patient Time attestation: Total time spent providing and/or coordinating discharge services: Exam Narrative: Patient is comfortable, NAD HEENT: eyes are clear and none icteric LUNGS:CTA HEART: RR S1S2 ABD: BS+, Soft and nontender Lower extremities: no edema SKIN: nonjaundiced Neuro: grossly intact. DS: Data Data Completed and Pending Labs on day of discharge: Labs from last 24 hours 12/28/24 12/28/24 12/28/24 11:37 04:56 04:41 WBC 9.3 RBC 3.29 L Hgb 9.0 L Hct 26.9 L MCV 81.8 MCH 27.4 MCHC 33.5 RDW 17.9 H Plt Count 502 H MPV 10.4 Immature Gran % (Auto) 0.4 Neut % (Auto) 69.3 Lymph % (Auto) 17.1 L Pine % (Auto) 9.1 H Eos % (Auto) 3.5 Baso % (Auto) 0.6 Lymph # (Auto) 1.60 Pine # (Auto) 0.9 H Eos # (Auto) 0.3 Baso # (Auto) 0.1 Abs Immat Gran (auto) 0.04 H Absolute Neuts (auto) 6.5 Absolute Nucleated RBC 0.000 Nucleated RBC % 0.0 POC Capillary Glucose 101 96 12/28/24 12/27/24 00:05 17:53 WBC RBC Hgb Hct MCV MCH MCHC RDW Plt Count MPV Immature Gran % (Auto) Neut % (Auto) Lymph % (Auto) Pine % (Auto) Eos % (Auto) Baso % (Auto) Lymph # (Auto) Pine # (Auto) Eos # (Auto) Baso # (Auto) Abs Immat Gran (auto) Absolute Neuts (auto) Absolute Nucleated RBC Nucleated RBC % POC Capillary Glucose 95 106 H Discharge Plan Discharge Attending physician on discharge: Aubrie Simmons Consulting providers: Huber Brunson; Raj Vicente; Lenny Rucker; Alvaro Lara; Yolie Dey; Usman Bains; [place] Discharging Clinician: Dieter Denney Patient Disposition: Home with Home Health Service Activity: as tolerated Diet: tube feeding Discharge Instructions: Per Care Coordination Patient is current with [facility] for RN visits for tu be feeding management. Please resume HH at discharge. [phone] RN pleases fax completed discharge instructions to [phone] patient to follow up with her primary care provider as soon as possible. if any symptoms worsen to go to nearest ER. Patient Instructions: Antibiotic Form, Apixaban (By mouth) Patient Language: Wolof Stand Alone Forms: General Discharge Information Follow-up/Referrals: Trish Luciano, YULIYA [Primary Care Provider, [facility]] Discharge Medications: New guaifenesin 100 mg/5 mL Liquid 200 mg feeding tube Q4HR Qty: 1500 0RF sennosides [Senokot] 8.6 mg Tablet 8.6 mg PO HS Qty: 30 0RF levalbuterol HCl 1.25 mg/3 mL Solution For Nebulization 0.63 mg inhalation Q6HRT Qty: 90 0RF ipratropium bromide 0.02 % Solution 0.5 mg inhalation Q6HRT Qty: 90 0RF metoprolol tartrate 25 mg Tablet 25 mg PO Q8HR Qty: 90 0RF (DME) compressor, for nebulizer Device See Rx Instructions .Route Qty: 1 0RF Rx Instructions: As directed Continued valacyclovir [Valtrex] 500 mg Tablet 1,000 mg PO Q12HR Qty: 17 0RF polyethylene glycol 3350 [ClearLax] 17 gram/dose powder 4 g PO DAILY Eliquis 5 mg Tablet 5 mg PO Q12HR Qty: 60 0RF Rx Instructions: please start taking Eliquis 5mg PO BID from 11/05 dimethyl fumarate [Tecfidera] 240 mg capsule,delayed release(DR/EC) 240 mg PO BID Qty: 180 0RF Date of admission: 12/19/24 20:03 Primary Care Provider: Trish Luciano Admitting Provider: Aubrie Simmons Attending physician on admission: Dieter Denney Condition: Stable
--- NOTE | 2024-12-28 16:41 | WNDPHOTO ---
PHOTO ONLY - See Nursing Notes and/ or assessments for documentation.
--- NOTE | 2024-12-28 16:41 | WNDPHOTO ---
PHOTO ONLY - See Nursing Notes and/ or assessments for documentation.
--- NOTE | 2024-12-28 17:39 | PC.NURSE ---
Message left for Sonu Carlos, son, per telephone that patient has been discharged.
== END 2024-12-28 17:40 | disposition home health service (06) | DRG 698 ==
LOC: ANHED 18:05 → ANH3MEDSUR 21:03
PROVIDERS: Emergency Medicine; Nurse Practitioner; Admitting Provider General Practice; Emergency Provider Student in an Organized Health Care Education/Training Program; PCP Nurse Practitioner Family; Visit Provider Family Medicine
DX: T83.511A Infection and inflammatory reaction due to indwelling urethral catheter, initial encounter (principal); G93.41 Metabolic encephalopathy; L89.154 Pressure ulcer of sacral region, stage 4; J69.0 Pneumonitis due to inhalation of food and vomit; E46 Unspecified protein-calorie malnutrition; Z68.1 Body mass index [BMI] 19.9 or less, adult; I48.0 Paroxysmal atrial fibrillation; I10 Essential (primary) hypertension; D64.9 Anemia, unspecified; I87.2 Venous insufficiency (chronic) (peripheral); N31.9 Neuromuscular dysfunction of bladder, unspecified; G35 Multiple sclerosis; B95.2 Enterococcus as the cause of diseases classified elsewhere; R13.10 Dysphagia, unspecified; M41.9 Scoliosis, unspecified; Z79.01 Long term (current) use of anticoagulants; Z93.1 Gastrostomy status
CPT/HCPCS: 36415; 71045; 80053; 81001; 82948; 83605; 83735; 85025; 85610; 85730; 86140; 87040; 87086; 87641; 93005; 94640; 96361; 96365; 96375; 99285; A9270; J0295; J1650; J2270; J3373; J7030; J7040